=== PATIENT | female | born 1980 | race Hispanic/Latino ===

== ENCOUNTER 2018-07-29 18:36 | Emergency (ER) | payer OTHER, SELFPAY ==
--- NOTE | 2018-07-29 19:26 | EDPHYS ---
Physician Documentation [facility] Name: Red Slater Age: 38 yrs Sex: Female : 1980 Arrival Date: 07/29/2018 Time: 18:38 Bed 15 Private MD: None, None ED Physician Nick Izquierdo HPI: 07/29 19:23 This 38 yrs old Female presents to ER via Ambulatory with complaints of Rash - kb PAINFUL. 19:23 The patient's rash thought to be caused by autoimmune disorder. The rash is located on kb the neck and chest. The rash can be described as pustular. Onset: The symptoms/episode began/occurred 1 month(s) ago. Associated signs and symptoms: Pertinent positives: Pain Pertinent negatives: burning sensation, difficulty breathing, fever, itching, nausea, swelling of lips, swelling of throat, swelling of tongue, vomiting, wheezing. Severity of symptoms: At their worst the symptoms were moderate in the emergency department the symptoms are unchanged. The patient has experienced similar episodes in the past, chronically. The patient has not recently seen a physician. Pt states she has been out of dapsone since she got out of senior living. 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 States prednisone doesn't work, she has to have dapsone. Reports she is going to see a doctor in [place] for this that she has seen in the past, but is waiting on medicaid. 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 - Social history:: Smoking status: Patient uses tobacco products, smokes one-half pack cigarettes per day, smokes one pack cigarettes per day. - Ebola Screening: : Patient negative for fever greater than or equal to 101.5 degrees Fahrenheit, and additional compatible Ebola Virus Disease symptoms Patient denies exposure to infectious person Patient denies travel to an Ebola-affected area in the 21 days before illness onset No symptoms or risks identified at this time. ROS: 19:22 Constitutional: Negative for fever, chills, and weight loss, Cardiovascular: Negative kb for chest pain, palpitations, and edema, Respiratory: Negative for shortness of breath, cough, wheezing, and pleuritic chest pain, Abdomen/GI: Negative for abdominal pain, nausea, vomiting, diarrhea, and constipation, Back: Negative for injury and pain, : Negative for injury, bleeding, discharge, and swelling, MS/Extremity: Negative for injury and deformity, Neuro: Negative for headache, weakness, numbness, tingling, and seizure. 19:22 Skin: Positive for rash, of the neck and chest. Exam: 19:22 Constitutional: This is a well developed, well nourished patient who is awake, alert, kb and in no acute distress. Head/Face: Normocephalic, atraumatic. Chest/axilla: Normal chest wall appearance and motion. Nontender with no deformity. No lesions are appreciated. Cardiovascular: Regular rate and rhythm with a normal S1 and S2. No gallops, murmurs, or rubs. Normal PMI, no JVD. No pulse deficits. Respiratory: Lungs have equal breath sounds bilaterally, clear to auscultation and percussion. No rales, rhonchi or wheezes noted. No increased work of breathing, no retractions or nasal flaring. Abdomen/GI: Soft, non-tender, with normal bowel sounds. No distension or tympany. No guarding or rebound. No evidence of tenderness throughout. MS/ Extremity: Pulses equal, no cyanosis. Neurovascular intact. Full, normal range of motion. Neuro: Awake and alert, GCS 15, oriented to person, place, time, and situation. Cranial nerves II-XII grossly intact. Motor strength 5/5 in all extremities. Sensory grossly intact. Cerebellar exam normal. Normal gait. 19:22 Skin: rash a moderate rash is noted, rash can be described as erythematous, pustular, on the neck and chest. Vital Signs: 19:08 BP 150 / 71; Pulse 84; Resp 20; Temp 97.4; Pulse Ox 97% on R/A; Weight 131.54 kg; aj Height 5 ft. 7 in. (170.18 cm); 19:08 Body Mass Index 45.42 (131.54 kg, 170.18 cm) aj MDM: 19:21 Patient medically screened. [facility] 19:23 Data reviewed: vital signs, nurses notes. Data interpreted: Pulse oximetry: on room air kb is 97 %. Interpretation: normal. Counseling: I had a detailed discussion with the patient and/or guardian regarding: the historical points, exam findings, and any diagnostic results supporting the discharge/admit diagnosis, the need for outpatient follow up, a family practitioner, to return to the emergency department if symptoms worsen or persist or if there are any questions or concerns that arise at home. Administered Medications: 19:27 Drug: Benadryl 25 mg Route: PO; lp1 19:27 Follow up: Response: Medication administered at discharge. lp1 19:27 Drug: Decadron 10 mg Route: IM; Site: right gluteus; lp1 19:27 Follow up: Response: Medication administered at discharge. lp1 Disposition: 07/30 06:56 Co-signature as Attending Physician, Nick Izquierdo MD I agree with the assessment and [facility] plan of care. Disposition: 07/29/18 19:26 Discharged to Home. Impression: Rash and other nonspecific skin eruption. - Condition is Stable. - Discharge Instructions: Rash, [id number]. - Prescriptions for dapsone 25 mg Oral tablet - take 2 tablet by ORAL route once daily; 60 tablet. - Medication Reconciliation Form, Thank You Letter, Antibiotic Education, Prescription Opioid Use form. - Follow up: Emergency Department; When: As needed; Reason: Worsening of condition. Follow up: Private Physician; When: 2 - 3 days; Reason: Recheck today's complaints, Continuance of care, Re-evaluation by your physician. Signatures: Belle Leahy, CHELSEA-C ZUMBA INSTRUCTOR-Jailyn Mcgee RN RN aj Anderson, Corey, MD MD cha Pena, Laura RN RN lp1 Corrections: (The following items were deleted from the chart) 07/29 19:40 19:26 07/29/2018 19:26 Discharged to Home. Impression: Rash and other nonspecific skin lp1 eruption. Condition is Stable. Discharge Instructions: Rash, [id number]. Prescriptions for dapsone 25 mg Oral tablet - take 2 tablet by ORAL route once daily; 60 tablet. and Forms are Medication Reconciliation Form, Thank You Letter, Antibiotic Education, Prescription Opioid Use. Follow up: Emergency Department; When: As needed; Reason: Worsening of condition. Follow up: Private Physician; When: 2 - 3 days; Reason: Recheck today's complaints, Continuance of care, Re-evaluation by your physician. kb
--- NOTE | 2018-07-29 19:26 | ER ---
Nurse's Notes [facility] Name: Red Slater Age: 38 yrs Sex: Female : 1980 Arrival Date: 07/29/2018 Time: 18:38 Bed 15 Private MD: None, None Diagnosis: Rash and other nonspecific skin eruption Presentation: 07/29 19:07 Presenting complaint: Patient states: Rash to neck and trunk from chronic autoimmune aj disorder. Transition of care: patient was not received from another setting of care. Onset of symptoms was July 29, 2018. Risk Assessment: Do you want to hurt yourself or someone else? Patient reports no desire to harm self or others. Initial Sepsis Screen: Does the patient meet any 2 criteria? No. Patient's initial sepsis screen is negative. Does the patient have a suspected source of infection? No. Patient's initial sepsis screen is negative. Care prior to arrival: None. 19:07 Method Of Arrival: Ambulatory aj 19:07 Acuity: PETE 4 aj Triage Assessment: 19:08 General: Appears in no apparent distress. comfortable, Behavior is calm, cooperative, aj appropriate for age. Pain: Denies pain. Neuro: Level of Consciousness is awake, alert, obeys commands, Oriented to person, place, time, situation, Appropriate for age. Respiratory: Airway is patent Respiratory effort is even, unlabored, Respiratory pattern is regular, symmetrical. Derm: Rash noted that is itchy, red, on chest and abdomen. 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 - Social history:: Smoking status: Patient uses tobacco products, smokes one-half pack cigarettes per day, smokes one pack cigarettes per day. - Ebola Screening: : Patient negative for fever greater than or equal to 101.5 degrees Fahrenheit, and additional compatible Ebola Virus Disease symptoms Patient denies exposure to infectious person Patient denies travel to an Ebola-affected area in the 21 days before illness onset No symptoms or risks identified at this time. Screenin:17 Abuse screen: Denies threats or abuse. Denies injuries from another. Nutritional lp1 screening: No deficits noted. Tuberculosis screening: No symptoms or risk factors identified. Fall Risk None identified. Assessment: 19:15 General: Appears in no apparent distress. Behavior is appropriate for age. Pain: lp1 Complains of pain in right clavicle, left clavicle and neck Pain currently is 9 out of 10 on a pain scale. Quality of pain is described as burning. Neuro: No deficits noted. Cardiovascular: No deficits noted. Respiratory: No deficits noted. GI: No deficits noted. : No deficits noted. EENT: No deficits noted. Derm: Rash noted that is itchy, red, urticaria, on right clavicle, left clavicle and neck. Musculoskeletal: No deficits noted. Vital Signs: 19:08 BP 150 / 71; Pulse 84; Resp 20; Temp 97.4; Pulse Ox 97% on R/A; Weight 131.54 kg; aj Height 5 ft. 7 in. (170.18 cm); 19:08 Body Mass Index 45.42 (131.54 kg, 170.18 cm) aj ED Course: 18:38 Patient arrived in ED. sb2 18:38 None, None is Private Physician. sb2 18:57 [facility]C [facility]. kb 18:57 Nick Izquierdo MD is Attending Physician. kb 19:08 Triage completed. aj 19:08 Arm band placed on right wrist. Patient placed in an exam room. aj 19:15 Jacqueline Torres, RN is Primary Nurse. lp1 19:28 Patient has correct armband on for positive identification. lp1 19:28 No provider procedures requiring assistance completed. Patient did not have IV access lp1 during this emergency room visit. Administered Medications: 19:27 Drug: Benadryl 25 mg Route: PO; lp1 19:27 Follow up: Response: Medication administered at discharge. lp1 19:27 Drug: Decadron 10 mg Route: IM; Site: right gluteus; lp1 19:27 Follow up: Response: Medication administered at discharge. lp1 Outcome: 19:26 Discharge ordered by . kb 19:40 Discharged to home ambulatory. lp1 19:40 Condition: good 19:40 Discharge instructions given to patient, Instructed on discharge instructions, follow up and referral plans. medication usage, Demonstrated understanding of instructions, follow-up care, medications, Prescriptions given X 1. 19:40 Patient left the ED. lp1 Signatures: Belle Leahy, PRAKASH TRAN-Jailyn Mcgee RN RN Jacqueline Roblero RN RN lp1 Yumi Loving sb2
[2018-07-29] MEDS ORDERED: DEXAMETHASONE 10 MG/ML VIAL ONE (19:29)
[2018-07-29] MEDS ORDERED: DIPHENHYDRAMINE 25 MG TAB/CAP ONE (19:29)
== END 2018-07-29 19:40 | disposition home or self-care (01) ==
LOC: ER 18:36
DX: R21 Rash and other nonspecific skin eruption (principal)
CPT/HCPCS: 96372; 99283; J1100

== ENCOUNTER 2019-05-24 15:04 | Emergency (ER) | payer SELFPAY ==
[2019-05-24] MEDS ORDERED: CODEINE 30MG/APAP 300MG TAB ONE (16:00)
--- NOTE | 2019-05-24 16:18 | EDPHYS ---
Physician Documentation [facility] Name: Red Slater Age: 39 yrs Sex: Female : 1980 Arrival Date: 05/24/2019 Time: 15:06 Bed 20 Private MD: ED Physician Nick Izquierdo HPI: 05/24 15:30 This 39 yrs old Female presents to ER via Ambulatory with complaints of Ear cp Pain. 15:30 The patient presents with drainage, that is purulent, pain, that is acute, swelling, cp tenderness. The complaints affect the left ear. Onset: The symptoms/episode began/occurred gradually, and became worse 3 day(s) ago. Associated signs and symptoms: Pertinent negatives: cough, fever, rhinorrhea, sinus trouble, sore throat, vomiting. Severity of symptoms: in the emergency department the symptoms are unchanged despite home interventions. 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 - Social history:: Smoking status: . - Ebola Screening: : Patient denies travel to an Ebola-affected area in the 21 days before illness onset. ROS: 15:35 Constitutional: Negative for body aches, chills, fever, poor PO intake. cp 15:35 Eyes: Negative for injury, pain, redness, and discharge. cp 15:35 ENT: Positive for drainage from ear(s), ear pain, Negative for sinus congestion, sore throat, difficulty swallowing, difficulty handling secretions. 15:35 Respiratory: Negative for cough, wheezing. 15:35 Skin: Negative for rash. 15:35 Neuro: Negative for altered mental status, headache. 15:35 All other systems are negative. Exam: 15:40 Head/Face: Normocephalic, atraumatic. cp 15:40 Constitutional: The patient appears in no acute distress, alert, awake, non-toxic, well developed, well nourished, obese. 15:40 Eyes: Periorbital structures: appear normal, Conjunctiva: normal, no exudate, no injection, Lids and lashes: appear normal, bilaterally. 15:40 ENT: External ear(s): pain with movement, that is moderate, of the pinna of left ear and left ear canal, Ear canal(s): purulent discharge, in the left canal, swelling, that is moderate, of the left canal, TM's: erythema, that is moderate, on the right, Nose: is normal, Mouth: is normal, Posterior pharynx: is normal, airway is patent, no erythema, no exudate. 15:40 Neck: ROM/movement: is normal, is supple, without pain, no range of motions limitations, no meningismus, Lymph nodes: no appreciated lymphadenopathy. 15:40 Chest/axilla: Inspection: normal. 15:40 Cardiovascular: Rate: tachycardic. 15:40 Respiratory: the patient does not display signs of respiratory distress, Respirations: normal, no use of accessory muscles, no retractions, no splinting, no tachypnea, labored breathing, is not present. 15:40 Skin: no rash present. Vital Signs: 15:15 BP 150 / 104; Pulse 100; Resp 17; Temp 98.7(TE); Pulse Ox 95% on R/A; Weight 129.27 kg tw2 (R); Height 5 ft. 7 in. (170.18 cm) (R); Pain 10/10; 16:33 BP 135 / 97; Pulse 92; Resp 100 S; Pulse Ox 100% on R/A; Pain 7/10; ca1 15:15 Body Mass Index 44.64 (129.27 kg, 170.18 cm) tw2 MDM: 15:23 Patient medically screened. cp 15:30 Differential diagnosis: otitis media, otitis externa, ruptured TM, cerumen impaction, cp barotrauma . 16:16 Data reviewed: vital signs, nurses notes, I have discussed the patient's cp presentation/case with the attending Emergency Department Physician; and as a result, I will discharge patient. 16:16 Counseling: I had a detailed discussion with the patient and/or guardian regarding: the cp historical points, exam findings, and any diagnostic results supporting the discharge/admit diagnosis, the need for outpatient follow up, an ENT specialist, to return to the emergency department if symptoms worsen or persist or if there are any questions or concerns that arise at home. Response to treatment: the patient's symptoms have mildly improved after treatment. 05/24 15:28 Order name: Urine Dipstick-Ancillary (obtain specimen); Complete Time: 15:56 cp 05/24 15:28 Order name: Urine Test (obtain specimen); Complete Time: 15:41 cp Administered Medications: 15:28 CANCELLED (Physician Discretion): Tylenol-Codeine #3 (300 mg - 30 mg) 2 tabs PO once; cp RASS on ADMIN: Combtv4, Very Agttd3, Agttd2, Rstlss1, AlertClm0, Drwsy-1, Lt Sdtn-2, Mod Sdtn-3, Dp Sdtn-4, UnArsble-5 16:21 Drug: Tylenol #3 (300 mg-30 mg) 2 tabs Route: PO; ca1 16:56 Follow up: Response: No adverse reaction; Pain is decreased ca1 Disposition: 05/25 07:21 Co-signature as Attending Physician, Nick Izquierdo MD I agree with the assessment and [facility] plan of care. Disposition: 05/24/19 16:17 Discharged to Home. Impression: Otitis externa in other diseases classified elsewhere, left ear, Otitis media, unspecified, right ear. - Condition is Stable. - Discharge Instructions: Otitis Media, Adult, Otitis Externa. - Prescriptions for Ciprodex 0.3- 0.1 % Otic Drops, Suspension - instill 4 drop by OTIC route every 12 hours for 7 days , for ears ONLY; 1 Container. ciprofloxacin HCl 750 mg Oral tablet - take 1 tablet by ORAL route every 12 hours for 10 days; 20 tablet. Tylenol- Codeine #3 300-30 mg Oral Tablet - take 2 tablets by ORAL route every 8 hours As needed; 15 tablet. - Medication Reconciliation Form, Thank You Letter, Antibiotic Education, Prescription Opioid Use form. - Follow up: Samantha Zayas MD; When: 2 - 3 days; Reason: Recheck today's complaints. - Problem is new. - Symptoms have improved. Signatures: Nick Izquierdo MD MD cha Page, Corey, PA PA cp Wise, Tara, RN RN tw2 Xiomy Alcantar RN RN ca1 Corrections: (The following items were deleted from the chart) 05/24 15:28 15:28 Tylenol-Codeine #3 (300 mg - 30 mg) 2 tabs PO once; RASS on ADMIN: Combtv4, Very cp Agttd3, Agttd2, Rstlss1, AlertClm0, Drwsy-1, Lt Sdtn-2, Mod Sdtn-3, Dp Sdtn-4, UnArsble-5 ordered. cp 16:57 16:17 05/24/2019 16:17 Discharged to Home. Impression: Otitis externa in other diseases ca1 classified elsewhere, left ear; Otitis media, unspecified, right ear. Condition is Stable. Discharge Instructions: Otitis Media, Adult, Otitis Externa. Prescriptions for Ciprodex 0.3-0.1 % Otic Drops, Suspension - instill 4 drop by OTIC route every 12 hours for 7 days , for ears ONLY; 1 Container, Augmentin 875-125 mg Oral Tablet - take 1 tablet by ORAL route every 12 hours for 10 days; 20 tablet. and Forms are Medication Reconciliation Form, Thank You Letter, Antibiotic Education, Prescription Opioid Use. Follow up: Samantha Zayas; When: 2 - 3 days; Reason: Recheck today's complaints. Problem is new. Symptoms have improved. cp
--- NOTE | 2019-05-24 16:18 | ER ---
Nurse's Notes [facility] Name: Red Slater Age: 39 yrs Sex: Female : 1980 Arrival Date: 05/24/2019 Time: 15:06 Bed 20 Private MD: Diagnosis: Otitis externa in other diseases classified elsewhere, left ear;Otitis media, unspecified, right ear Presentation: 05/24 15:13 Presenting complaint: Patient states: i have a really bad ear ache on the LEFT ear and tw2 my face feels swollen, the pain started 3 days ago, and the swelling started yesterday. Transition of care: patient was not received from another setting of care. Onset of symptoms was May 24, 2019. Risk Assessment: Do you want to hurt yourself or someone else? Patient reports no desire to harm self or others. Initial Sepsis Screen: Does the patient meet any 2 criteria? No. Patient's initial sepsis screen is negative. Does the patient have a suspected source of infection? No. Patient's initial sepsis screen is negative. Care prior to arrival: None. 15:13 Method Of Arrival: Ambulatory tw2 15:13 Acuity: PETE 3 tw2 Triage Assessment: 15:15 General: Appears in no apparent distress. obese, Behavior is calm, cooperative, tw2 appropriate for age. Pain: Complains of pain in left ear. EENT: Reports pain in left ear. 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 - Social history:: Smoking status: . - Ebola Screening: : Patient denies travel to an Ebola-affected area in the 21 days before illness onset. Screenin:25 Abuse screen: Denies threats or abuse. Denies injuries from another. Nutritional ca1 screening: No deficits noted. Tuberculosis screening: No symptoms or risk factors identified. Fall Risk None identified. Assessment: 15:25 General: Appears in no apparent distress. comfortable, Behavior is calm, cooperative, ca1 appropriate for age. Pain: Complains of pain in left ear Pain currently is 10 out of 10 on a pain scale. Quality of pain is described as throbbing, Pain began 1 day ago. Neuro: Level of Consciousness is awake, alert, obeys commands, Oriented to person, place, time, situation, Appropriate for age. EENT: Tympanic membrane not visualized right ear Ear canal w/ drainage noted from left ear Reports decreased hearing in left ear pain in left ear Pain is 10 out of 10 on a pain scale. Derm: Skin is intact, is healthy with good turgor, Skin is pink, warm \T\ dry. Musculoskeletal: Circulation, motion, and sensation intact. Capillary refill < 3 seconds. 16:33 Reassessment: Patient appears in no apparent distress at this time. Patient and/or ca1 family updated on plan of care and expected duration. Pain level reassessed. Patient is alert, oriented x 3, equal unlabored respirations, skin warm/dry/pink. Vital Signs: 15:15 BP 150 / 104; Pulse 100; Resp 17; Temp 98.7(TE); Pulse Ox 95% on R/A; Weight 129.27 kg tw2 (R); Height 5 ft. 7 in. (170.18 cm) (R); Pain 10/10; 16:33 BP 135 / 97; Pulse 92; Resp 100 S; Pulse Ox 100% on R/A; Pain 7/10; ca1 15:15 Body Mass Index 44.64 (129.27 kg, 170.18 cm) tw2 ED Course: 15:06 Patient arrived in ED. mr 15:15 Triage completed. tw2 15:16 Arm band placed on. tw2 15:20 Xiomy Alcantar, NELY is Primary Nurse. ca1 15:22 Nick Gunn PA is PHCP. cp 15:22 Nick Izquierdo MD is Attending Physician. cp 15:25 Patient has correct armband on for positive identification. Bed in low position. Call ca1 light in reach. Side rails up X 1. Pulse ox on. NIBP on. 15:25 No provider procedures requiring assistance completed. Patient did not have IV access ca1 during this emergency room visit. 16:17 Samantha Zayas MD is Referral Physician. cp Administered Medications: 15:28 CANCELLED (Physician Discretion): Tylenol-Codeine #3 (300 mg - 30 mg) 2 tabs PO once; cp RASS on ADMIN: Combtv4, Very Agttd3, Agttd2, Rstlss1, AlertClm0, Drwsy-1, Lt Sdtn-2, Mod Sdtn-3, Dp Sdtn-4, UnArsble-5 16:21 Drug: Tylenol #3 (300 mg-30 mg) 2 tabs Route: PO; ca1 16:56 Follow up: Response: No adverse reaction; Pain is decreased ca1 Outcome: 16:17 Discharge ordered by MD. cp 16:57 Discharged to home with friend. ca1 16:57 Condition: stable 16:57 Discharge instructions given to patient, Instructed on discharge instructions, follow up and referral plans. no drinking with medication, no driving heavy equipment, medication usage, Demonstrated understanding of instructions, follow-up care, medications, Prescriptions given X 3. 16:57 Patient left the ED. ca1 Signatures: Arina Valdez mr GunnNick PA PA cp Wise, Tara RN RN tw2 Xiomy Alcantar RN RN ca1
[2019-05-24 17:51] VITALS: TEMP 98.7
[2019-05-24 17:52] VITALS: BP 135/97; O2SAT 100
== END 2019-05-24 16:57 | disposition home or self-care (01) ==
LOC: ER 15:04
DX: H60.8X2 Other otitis externa, left ear (principal); H66.91 Otitis media, unspecified, right ear
CPT/HCPCS: 99283

== ENCOUNTER 2020-07-19 | Emergency (ER) | payer OTHER ==
--- OUTSIDE RECORDS SUMMARY | 2020-07-19 12:20 | XMS REPORT | Continuity of Care Document ---
:1980 Author Organization [facility] t Address [address] [place] [address] Care Team Providers Name Role Phone Lawrence Ch MD Attending Clinician Problems This patient has no known problems. Allergies, Adverse Reactions, Alerts This patient has no known allergies or adverse reactions. Medications This patient has no known medications. Procedures This patient has no known procedures. Encounters Start End Encounter Admission Attending Care Care Encounter Source Date/Time Date/Time Type Type Clinicians Facility Department ID 2020-07-18 2020-07-18 Refill [facility] [id number] 00:00:00 00:00:00 [facility] [id number] [facility] [id number] 2020-07-05 2020-07-05 Office [facility] [id number] 09:26:49 11:10:38 Visit [facility] [id number] [facility] [id number] Results This patient has no known results.
--- OUTSIDE RECORDS SUMMARY | 2020-07-19 12:21 | XMS REPORT | Summary of Care ---
:1980 Author Organization [facility] - [facility] Address [address] [place] [address] Care Team Providers Name Role Phone Pcp, Patient Does Not Have A Primary Care Provider +[phone] 0-0000 Encounter Details Date Type Department Care Team Description 06/06/2020 Orders Only [facility] Doctor Unassigned, No [address] [facility] [address] [address] [place] [address] Allergies No Known Allergiesdocumented as of this encounter (statuses as of 06/06/2020) Medications Medication Sig Dispensed Refills Start Date End Date Status traMADOL (ULTRAM) 50 mg Take 1 Tab by 60 Tab 0 10/20/2014 Active tablet mouth every 6 (six) hours as needed for Pain (scale 4-6) or Pain (scale 7-10). predniSONE (DELTASONE) Take 1 Tab by 30 Tab 1 12/02/2014 Active 20 mg mouth daily. tabletIndications: Sneddon-Gonzalez disease predniSONE (DELTASONE) Take 1 Tab by 100 Tab 0 12/27/2014 Active 5 mg tabletIndications: mouth daily. Sneddon-Gonzalez disease nystatin (MYCOSTATIN) Apply to area(s) 90 g 1 02/08/2015 Active 100,000 unit/gram 2 (two) times ointmentIndications: daily. Sneddon-Gonzalez disease triamcinolone acetonide Apply to area(s) 454 g 3 03/29/20 15 Active (KENALOG) 0.1 % 2 (two) times ointmentIndications: daily. Sneddon-Gonzalez disease doxycycline (MONODOX) Take 1 Cap by 60 Cap 2 03/31/2015 Active 100 mg capsule mouth 2 (two) times daily. dapsone 25 mg Take 2 tablets by 60 tablet 0 12/22/2018 Active tabletIndications: mouth daily. 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 documented as of this encounter (statuses as of 06/06/2020) Immunizations Name Administration Dates Next Due TDAP 09/29/2012 Td 07/28/1994 documented as of this encounter Social History Tobacco Use Types Packs/Day Years Used Date Former Smoker Smokeless Tobacco: Former User Q uit: 12/27/2011 Alcohol Use Drinks/Week oz/Week Comments No Sex Assigned at Date Recorded Not on file documented as of this encounter Last Filed Vital Signs Not on filedocumented in this encounter Plan of Treatment Health Maintenance Due Date Last Done Comments PNEUMOCOCCAL 0-64 YEARS COMBINED SERIES (1 01/14/1986 of 3 - PCV13) Depression Screening 1992 PAP SMEAR 09/30/2015 09/29/2012 Breast Cancer Screening (MAMMOGRAM) 2020 INFLUENZA VACCINE (#1) 2020 DTaP,Tdap,and Td Vaccines (3 - Td) 09/29/2022 09/29/2012, 0 07/28/1994 documented as of this encounter Procedures Procedure Name Priority Date/Time Associated Diagnosis Comme nts CONSENT/REFUSAL FOR Routine 06/06/2020 7:54 PM 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
--- OUTSIDE RECORDS SUMMARY | 2020-07-19 12:21 | XMS REPORT | Summary of Care ---
:1980 Author Organization [facility] Address [address] [place] [address] Care Team Providers Name Role Phone Pcp, Patient Does Not Have A Primary Care Provider +[id number] 0-0000 Reason for Visit Reason Comments LAB WORK Encounter Details Date Type Department Care Team Description 07/05/2020 Bill Cutter Visit [facility] Clinical Say Wells MD [address] [place] [address] [facility] - [facility], [facility]-Lab disease [address] [phone] Allergies No Known Allergiesdocumented as of this encounter (statuses as of 07/05/2020) Medications Medication Sig Dispensed Refills Start Date [...] 12/22/2018 Active tabletIndications: mouth daily. Autoimmune disorder dapsone 25 mg Take 1 tablet by 10 tablet 0 06/06/2020 Active tabletIndications: mouth daily. 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 documented as of this encounter Last Filed Vital Signs Not on filedocumented in this encounter Nursing Notes Princess Larisa Morris - 07/05/2020 11:30 AM CST Venipuncture collection performed by clean technique on the right anticubitus. Total of 1 attempts were made. Slight pressure and a bandage/dressing were applied to the site(s). The patient experiencedno complications. The following specimens were processed according to instructions and sent to [facility] laboratories per lab order on : LT BLUE SST 1 RED LAV 3 PPT DK GREEN (LiHep) DK GREEN (SodH) NGO DK BLUE (K2) DK BLUE (S) ACD Blood Culture NIPT/NTD Drawn by Tj Alcalaectronically signed by Princess Larisa Morris at 07/05/2020 11:27 AM CSTdocumented in this encounter Plan of Treatment Date Type Specialty Care Team Description 07/17/2020 Nurse Visit Dermatology Visit, [facility] Dermatology Nurse Name Type Priority Associated Diagnoses Date/Ti me CBC WITH DIFF [facility]:22 AM disease COLLATERAL ANALYST COMP. METABOLIC PANEL LAB [facility]ine [facility] 09/05/2019 11:22 AM ([id number]) disease COLLATERAL ANALYST THIOPURINE LAB Routine Notable Limited-Gonzalez 07/05/2020 11:22 AM METHYLTRANSFERASE, RBC disease COLLATERAL ANALYST HEPATITIS B CORE ANTIBODY LAB Routine [facility]ail[facility] on 07/05/2020 11:22 AM IGM disease COLLATERAL ANALYST HCV ANTIBODY LAB Routine Notable LimitedGonzalez 07/05/2020 11:22 AM disease COLLATERAL ANALYST HIV 1/2 AG-AB WITH REFLEX LAB Routine [facility] on 07/05/2020 11:22 AM disease COLLATERAL ANALYST GLYCOSYLATED HEMOGLOBIN LAB Routine Notable LimitedGonzalez 07/05/2020 11:22 AM (A1C) disease COLLATERAL ANALYST Health Maintenance Due Date Last Done Comments PNEUMOCOCCAL 0-64 YEARS COMBINED SERIES (1 01/14/1986 of 3 - PCV13) Depression Screening 1992 PAP SMEAR 09/30/2015 09/29/2012 Breast Cancer Screening (MAMMOGRAM) 2020 INFLUENZA VACCINE (#1) 2020 DTaP,Tdap,and Td Vaccines (3 - Td) 09/29/2022 09/29/2012, 0 07/28/1994 documented as of this encounter Results Not on filedocumented in this encounter 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
--- OUTSIDE RECORDS SUMMARY | 2020-07-19 12:21 | XMS REPORT | Summary of Care ---
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 documented as of this encounter Last Filed Vital Signs Not on filedocumented in this encounter Plan of Treatment Date Type Specialty Care Team Description 07/05/2020 Office Visit Dermatology Gwendolyn Kaye MD [address] [place] [phone] Sanket Wells MD [address] [place] [phone] Health Maintenance Due Date Last Done Comments PNEUMOCOCCAL 0-64 YEARS COMBINED SERIES (1 01/14/1986 of 3 - PCV13) Depression Screening 1992 PAP SMEAR 09/30/2015 09/29/2012 Breast Cancer Screening (MAMMOGRAM) 2020 INFLUENZA VACCINE (#1) 2020 DTaP,Tdap,and Td Vaccines (3 - Td) 09/29/2022 09/29/2012, 0 07/28/1994 documented as of this encounter Procedures Procedure Name Priority Date/Time Associated Diagnosis Comme nts ASSIGNMENT OF BENEFITS Routine 07/05/2020 9:26 AM LABOR RELATIONS REPRESENTATIVE documented in this encounter Results Not on filedocumented in this encounter Insurance Payer Benefit Plan Subscriber ID Effective Phone Address Typ e / Group Dates [facility] MEDICAID OF [id number] 2019-Pres [phone] Med icaid [place] ent [id number] [place] [address] [facility] [id number] 2014-Blossom Medic aid HEALTH[employer] COMM STAR nt PLAN - MANAGED MEDICAID documented as of this encounter
--- OUTSIDE RECORDS SUMMARY | 2020-07-19 12:21 | XMS REPORT | Summary of Care ---
:1980 Author Organization [facility] Address [address] [place] [id number] Care Team Providers Name Role Phone Pcp, Patient Does Not Have A Primary Care Provider +[id number] 0-0000 Reason for Visit Reason Comments New Evaluation Skin Check Rash (Routine) Status Reason Specialty Diagnoses / Referred By Referred To Procedures Contact Contact New Request [facility] / Diagnoses Dermatitis Maynor Pena, Dermatology Procedures Discharge Follow-Up: Specialty Service [facility]; 3-5 Days CONSULT/REFERRAL DERMATOLOGY [address] [place] [address] [address] [place] [address] Encounter Details Date Type Department Care Team Description 07/05/2020 Office Visit [facility] Gwendolyn Kaye MD [address] [place] [address] [phone] Sneddon-Wallace disease (Primary Dx); Dermatology- Sanket Wells MD [address] [place] [phone] Angiolipoma; [place] Abscess; [facility] Benign neoplasm of scalp and skin of neck [address] [facility] [place] [phone] Allergies No Known Allergiesdocumented as of this [...] 12/02/2014 Active 20 mg mouth daily. tabletIndications: Sneddon-Wallace disease predniSONE (DELTASONE) Take 1 Tab by 100 Tab 0 12/27/2014 Active 5 mg tabletIndications: mouth daily. Sneddon-Wallace disease nystatin (MYCOSTATIN) Apply to area(s) 90 g 1 02/08/2015 Active 100,000 unit/gram 2 (two) times ointmentIndications: daily. Sneddon-Wallace disease triamcinolone acetonide Apply to area(s) 454 g 3 03/29/20 15 Active (KENALOG) 0.1 % 2 (two) times ointmentIndications: daily. Sneddon-Wallace disease doxycycline (MONODOX) Take 1 Cap by [...] and vulvovaginitis 09/29/2012 Overview: ICD10 Diagnosis Term Conduit Cleaner Utility Need for prophylactic vaccination with combined 2012 dxauquwfjy-bivvmsv-idyydtcxr (DTP) vaccine Morbid obesity 09/29/2012 AN (acanthosis nigricans) 09/29/2012 Headache 09/29/2012 Overview: ICD10 Diagnosis Term Conduit Cleaner Utility documented as of this encounter (statuses [...] with No / Unsure 07/05/2020 9:34 AM BOTTOM SPRAYER someone who was confirmed or suspected to have Coronavirus / COVID-19? 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 She was last seen on 2014 and after her last visit she was incarcerated until 2 weeks ago. Since last visit she reports multiple relapses despite dapsone (25 mg daily). She denies any admissions to the hospital during that time. Today she is comming with 3 weeks history of erythematous patches involving lower face, heck, chest, abdomen, back and extremities. She received Dexamethasone IM (dose not precised) 3 weeks ago while still incarcerated. The rash is associated with pustules, burning sensation and pain. Denies using any topical treatments. 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 NEGATIVE FOR IgA. Previous history of management (taken from the previous note) 10/20/2014 - patient was discharged on prednisone 40 mg daily & dapsone 50 mg daily 10/31/2014 - patient is self-pay with very limited funds, was not able to get the medication until day before (10/30/2014), when her friend bought it for her. Continued prednisone 40 mg daily & dapsone 50 mg daily 11/18/2014 - Only took prednisone 20 mg daily due to anxiety, taking dapsone 50 mg daily without problems. Still making new lesions. Continued prednisone 20 mg daily, increased dapsone to 100 mg daily 12/02/2014 - Taking prednisone 20 mg daily but only dapsone 50 mg daily due to perceived anxiety. Still making new lesions despite some fading of other lesions. Continue prednisone 20 mg daily and increased dapsone to 100 mg daily (OK to take 50 mg BID) 12/23/2014 - Taking prednisone 20 mg daily and dapsone 50 mg BID without problems. Much improved with very few active pustules, and resolution of most plaques with postinflammatory hyperpigmentation. 12/02/2014 bloodwork showed no anemia, mildly increased reticulocyte count to 2.08, SPEP with mild polyclonal Ig increase, and CMP with transaminitis of 82/49. She described in the past a history of alcoholic cirrhosis and there were no baseline LFTs. Repeat bloodwork without anemia or transaminitis, reticulocyte less increased to 1.98, viral hepatitis panel negative. Dapsone increased to 150 mg daily and instructed to taper prednisone by 2.5 mg weekly. 01/16/2015 - Taking presnidone 5 mg daily (tapered by 5 mg weekly instead of 2.5 mg weekly) and dapsone 50 mg TID without problems. When tapering prednisone, noticed increased activity around neck area- other areas clear. No topicals. Increased patient to dapsone 200 mg daily and instructed to continue prednisone 5 mg daily x 1 week, then start 2.5 mg daily x 1 week, then take 2.5 mg QOD x 7 doses. 01/26/2015 - Patient called and stated she was flaring and lesions were painful. Spoke to patient about coming in to clinic as soon as possible. She was unable to get a ride to come in. Instructed her to hold prednisone at 2.5 mg daily until seen. 02/08/2015 - patient taking 2.5 mg prednisone daily, dapsone 150 mg daily (sometimes only 100 mg when she forgets), did not increase to 200 mg daily (patient did not realize she was supposed to do this). Previous flare better, but still had active areas in skin folds on trunk and on legs - plaques and pustules. (+) pain in intertriginous areas, used hydrocortisone and clotrimazole as suggested but states this made area flare. Decreased prednisone to 2.5 mg PO QOD x 7 doses, then stop. Increased dapsone to 200 mg daily. 03/01/2015 - still flaring, off prednisone, on dapsone 200 mg daily, thought about increasing dapsone further but new anemia (had been trending down since start of dapsone & with increasing dosage)& increasing reticulocyte count prevented this. Added minocycline 100 mg PO BID. Histories Past Medical History: Diagnosis Date Abnormal Pap smear 2002 unknown result Blood transfusion, without reported diagnosis 1986 during surgery HTN (hypertension) Sneddon-Wallace disease (-) hx of skin cancer (-) family hx of skin cancer Allergies No Known Allergies Medications Current Outpatient Medications on File Prior to Visit Medication Sig Dispense Refill dapsone 25 mg tablet Take 1 tablet by mouth daily. 10 tablet 0 dapsone 25 mg tablet Take 2 tablets by mouth daily. 60 tablet 0 doxycycline (MONODOX) 100 mg capsule Take 1 Cap by mouth 2 (two) times daily. 60 Cap 2 triamcinolone acetonide (KENALOG) 0.1 % ointment Apply to area(s) 2 (two) times daily. 454 g 3 nystatin (MYCOSTATIN) 100,000 unit/gram ointment Apply to area(s) 2 (two) times daily. 90 g 1 predniSONE (DELTASONE) 5 mg tablet Take 1 Tab by mouth daily. 100 Tab 0 predniSONE (DELTASONE) 20 mg tablet Take 1 Tab by mouth daily. 30 Tab 1 traMADOL (ULTRAM) 50 mg tablet Take 1 Tab by mouth every 6 (six) hours as needed for Pain (scale4-6) or Pain (scale 7-10). 60 Tab 0 No current facility-administered medications on file prior to visit. Review of Systems Constitutional: Pain (+) Skin: Itching (+), Rash (+), Growth (+), Color change (+) Heme: Bleeding (-) Physical Exam There were no vitals taken for this visit. General : No acute distress, awake, well developed, well nourished Psychiatric: Normal affect, mood, judgement, and thought content Neuro: Alert, oriented to person, place, situation FACE: Positive EYES: Negative NOSE: Negative EARS: Positive SCALP: Negative NECK: Positive CHEST: Positive ABDOMEN: Positive BACK: Positive RIGHT ARM: See image LEFT ARM: Positive RIGHT LEG: Positive LEFT LEG: Positive BUTTOCKS: Positive (-)=Negative,(+)=Positive Actinic Keratosis (A): erythematous scaling papules Elizalde Hemaniogioma (CH): smooth red and purple papules Dermatitis Erythema (DE): mild to moderate erythema and scaling Dermatitis Lichenified (DL): lichenification and thickening Dermatitis Weeping (DW): weeping and excoriation Inflamed Seborrheic Keratosis (ISK): inflamed warty brown papules and plaques Millium (ML): Small white cystic papule Molluscum Contagiosum (MC): umbilicated papule Nevus Macular (NM): well circumscribed evenly pigmented macule Nevus Papular (MAILING JOGGER): well circumscribed evenly pigmented papule Psoriasis Circumscribed (PC): well circumscribed erythema and scaling Psoriasis Diffuse (PD): diffuse patches of erythema and scaling Seborrheic Keratosis (SK): verrucous brown papules and plaques Scar (SR): cicatricial change Verruca Vulgarus (W): warty hyperkeratotic papule 07/05/2020 07/05/2020 07/05/2020 07/05/2020 07/05/2020 07/05/2020 Assessment/Plan 1. Kailee Rayoinson disease - Discussed possible etiologies, prognosis and treatment options with patient -Start Doxycycline 100 mg PO BID, eRx sent. Discussed side effects of medicationication including GIupset, esophagitis, and photosensitivity. Instructed on use (take medication with food and plenty ofwater). Counseled patient about sunscreen/sun avoidance/sun protection -Recommended to start prednisone but patient differs at this moment. Patient experimented anxiety and insomnia last time she was on prednisone. - Start Nicotinamide 1.5 g po BID, OTC. Written instructions handed to the patient. -Start triamcinolone 0.1% ointment BID to affected areas, eRx sent. Discussed side effects of medication including potential for cutaneous atrophy. - Discussed differential diagnosis, prognosis and diagnostic/management options - PUNCH BIOPSY: Left abdomen: Risks of procedure discussed including bleeding, infection, and scar. Verbal consent obtained. Area prepped with alcohol. Local anesthesia provided with 1% lidocaine and epinephrine. 4 mm punch biopsy obtained. Specimen sent to pathology. Patient will be contacted with results. 4- 0 Prolene suture x 1 was placed to close the defect. Site covered with petrolatum and a bandage. Wound care instructions provided. Return for suture removal in 10 days - PUNCH BIOPSY: Right abdomen: Risks of procedure discussed including bleeding, infection, and scar. Verbal consent obtained. Area prepped with alcohol. Local anesthesia provided with 1% lidocaine and epinephrine. 4 mm punch biopsy obtained. Specimen sent to pathology. Patient will be contacted with results. 4-0 Prolene suture x 1 was placed to close the defect. Site covered with petrolatum and a bandage. Wound care instructions provided. Return for suture removal in 10 days - PUNCH BIOPSY: Right abdomen: Risks of procedure discussed including bleeding, infection, and scar. Verbal consent obtained. Area prepped with alcohol. Local anesthesia provided with 1% lidocaine and epinephrine. 4 mm punch biopsy obtained. Specimen sent to surgical pathology for DIF. Patient will be contacted with results. 4-0 Prolene suture x 1 was placed to close the defect. Site covered with petrolatum and a bandage. Wound care instructions provided. Return for suture removal in 10 days - Ordered today: cbc, cmp, TMPT, hep B and hep C, HIV and HbA1C 2. Angiolipoma, left upper arm - Discussed etiology and treatment options, including risks and benefits. - Benign appearing - Instructed to monitor for any change & notify MD if any changes noted 3. Abscess, right upper arm and left medial upper thigh - Discussed possible etiologies, prognosis and treatment options with patient - Start Doxycycline 100 mg BID eRx sent. Discussed side effects of medication including potential for cutaneous atrophy. Avoid face, axilla and groin. - Recommended bleach/chlorhexidone bath. - Bacterial culture ordered today. 4. Dermatofibroma, right forearm - Etiology and treatment options discussed - Reassurance provided . RTC 2 weeks Patient seen and discussed with Dr. Wells. The above assessment and plan is final only at the timeof their co-signature. Gwendolyn Ch MD PGY-2 [facility] Dermatology 07/05/2020 17:20 OM SPRAYER documented in this encounter Plan of Treatment Date Type Specialty Care Team Description 07/17/2020 Nurse Visit Dermatology Visit, [facility] Dermatology Nurse Name Type Priority Associated Diagnoses Date/Ti nc SURGICAL PATHOLOGY EXAM LAB Routine Emanuel 07/05/2020 1:44 PM BOTTOM SPRAYER disease THIOPURINE LAB Routine Emanuel 07/05/2020 11:22 AM BOTTOM SPRAYER METHYLTRANSFERASE, RBC disease HEPATITIS B CORE LAB Routine Emanuel 2019 11:22 AM BOTTOM SPRAYER ANTIBODY IGM disease HCV ANTIBODY LAB Routine Emanuel 07/05/2020 11:22 AM BOTTOM SPRAYER disease HIV 1/2 AG-AB WITH LAB Routine Sneddon-Wallace 03/2020 11:22 AM BOTTOM SPRAYER REFLEX disease ASPIRATE OR ABSCESS LAB Routine Sneddon-Wallace 03/2020 1:44 PM BOTTOM SPRAYER CULTURE(AEROBIC/ANAEROBI disease C) Name Type Priority Associated Diagnoses Order S chedule SURGICAL PATHOLOGY EXAM LAB Routine Sneddon-Wallace Expected: 07/05/2020, disease Expires: 2020 THIOPURINE LAB Routine Sneddon-Wallace Expected: 07/05/2020, METHYLTRANSFERASE, RBC disease Expir es: 07/05/2021 HEPATITIS B CORE ANTIBODY LAB Routine Sneddon-Ibarra on Expected: 07/05/2020, IGM disease Expires: 2020 HCV ANTIBODY LAB Routine Sneddon-Wallace Expected: 07/05/2020, disease Expires: 2020 HIV 1/2 AG-AB WITH REFLEX LAB Routine Sneddon-Ibarra on Expected: 07/05/2020, disease Expires: 2020 ASPIRATE OR ABSCESS LAB Routine Sneddon-Wallace Exp ected: 07/05/2020, CULTURE(AEROBIC/ANAEROBIC disease Ex ashley: 07/05/2021 ) Health Maintenance Due Date Last Done Comments PNEUMOCOCCAL 0-64 YEARS COMBINED SERIES (1 01/14/1986 of 3 - PCV13) Depression Screening 1992 PAP SMEAR 09/30/2015 09/29/2012 Breast Cancer Screening (MAMMOGRAM) 2020 INFLUENZA VACCINE (#1) 2020 DTaP,Tdap,and Td Vaccines (3 - Td) 09/29/2022 09/29/2012, 0 07/28/1994 documented as of this encounter Results GLYCOSYLATED HEMOGLOBIN (A1C) (07/05/2020 11:22 AM BOTTOM SPRAYER) Pathologist Sig nature HGB A1C 5.0 4.0 - 6.0 % [facility] Specimen Blood - ARM, RIGHT Performing Organization Address City/State/Zipcode Phone Number [facility] CLIA: [id number] [place] [address] [place] [address] COMP. METABOLIC PANEL (91484) (07/05/2020 11:22 AM BOTTOM SPRAYER) Pathologist Sig nature NA 137 135 - 145 mmol/L [facility] K 4.4 3.5 - 5.0 mmol/L [facility] CL 102 98 - 108 mmol/L [facility] CO2 TOTAL 25 23 - 31 mmol/L [facility] AGAP 10 2 - 16 [facility] BUN 13 7 - 23 mg/dL [facility] GLUCOSE 98 70 - 110 mg/dL [facility] CREATININE 0.63 0.50 - 1.04 [facility] mg/dL SERVICES TOTAL BILI 0.6 0.1 - 1.1 mg/dL [facility] CALCIUM 8.8 8.6 - 10.6 mg/dL [facility] T PROTEIN 7.9 6.3 - 8.2 g/dL [facility] ALBUMIN 3.9 3.5 - 5.0 g/dL [facility] ALK PHOS 104 34 - 122 U/L [facility] ALTv 14 5 - 35 U/L [facility] AST(SGOT) 22 13 - 40 U/L [facility] eGFR Calculation 104.7 mL/min/1.73m2 [facility] (Non-) SERVICES eGFR Calculation 126.8 mL/min/1.73m2 [facility] () SERVICES Specimen Blood - ARM, RIGHT Narrative Performed At Association of Glomerular Filtration Rate (GFR) and St aging [facility] of Kidney Disease* + + +------- ------ + | GFR (mL/min/1.73 m2) | With Kidney Damage | Wi thout Kidney Damage + + +------- ------ + | >90 | Stage one | Normal + + +------- ------ + | 60-89 | Stage two | Decreased GFR + + +------- ------ + | 30-59 | Stage three | Stage three + + +------- ------ + | 15-29 | Stage four | Stage four + + +------- ------ + | <15 (or dialysis) | Stage five | Stage five + + +------- ------ + *Each stage assumes the associated GFR level has been in effect for at least three months. Stages 1 to 5, wit h or without kidney disease, indicate chronic kidney disease. Notes: Determination of stages one and two (with eGFR >59mL/min/1.73 m2) requires estimation of kidney damag e for at least three months as defined by structural or func tional abnormalities of the kidney, manifested by either: Pathological abnormalities or Markers of kidney damage (including abnormalities in the composition of the blo od or urine or abnormalities in imaging tests) . Performing Organization Address City/State/Zipcode Phone Number [facility] CLIA: [id number] [place] [address] [place] [address] CBC WITH DIFF (07/05/2020 11:22 AM BOTTOM SPRAYER) Pathologist Sig nature WBC 11.72 (H) 4.30 - 11.10 [facility] 10*3/L SERVICES RBC 4.35 3.93 - 5.25 [facility] 10*6/L SERVICES HGB 12.2 11.6 - 15.0 [facility] g/dL SERVICES HCT 38.7 35.7 - 45.2 % [facility] MCV 89.0 80.6 - 95.5 fL [facility] MCH 28.0 25.9 - 32.8 pg [facility] MCHC 31.5 (L) 31.6 - 35.1 [facility] g/dL SERVICES RDW-SD 45.3 39.0 - 49.9 fL [facility] RDW-CV 14.0 12.0 - 15.5 % [facility] [address] (H) 166 - 358 [facility] 10*3/L SERVICES MPV 8.8 (L) 9.5 - 12.9 fL [facility] NRBC/100 WBC 0.0 0.0 - 10.0 /100 [facility] WBCs SERVICES NRBC x10^3 <0.01 10*3/L [facility] GRAN MAT (NEUT) % 65.8 % [facility] IMM GRAN % 0.40 % [facility] LYMPH % 26.1 % [facility] MONO % 5.7 % [facility] EOS % 1.7 % [facility] BASO % 0.3 % [facility] GRAN MAT x10^3(ANC) 7.71 (H) 1.88 - 7.09 [facility] 10*3/uL SERVICES IMM GRAN x10^3 0.05 0.00 - 0.06 [facility] 10*3/uL SERVICES LYMPH x10^3 3.06 1.32 - 3.29 [facility] 10*3/uL SERVICES MONO x10^3 0.67 0.33 - 0.92 [facility] 10*3/uL SERVICES EOS x10^3 0.20 0.03 - 0.39 [facility] 10*3/uL SERVICES BASO x10^3 0.03 0.01 - 0.07 [facility] 10*3/uL SERVICES Specimen Blood - ARM, RIGHT Performing Organization Address City/State/Zipcode Phone Number [facility] CLIA: [id number] [place] [address] [place] [address] Blvd documented in this encounter Visit Diagnoses Diagnosis Sneddon-Wallace disease - Primary Subcorneal pustular dermatosis Angiolipoma Lipoma of unspecified site Abscess Cellulitis and abscess of unspecified si te Benign neoplasm of scalp and skin of nec k documented in this encounter Insurance Payer Benefit Plan / Subscriber ID Effective Dates Phone Addre ss Type Group [facility] MEDICAID OF [id number] 2019-Judith [phone] Medicaid [facility] [id number] [place] [address] documented as of this encounter"
--- OUTSIDE RECORDS SUMMARY | 2020-07-19 12:21 | XMS REPORT | Summary of Care ---
:1980 Author Organization [facility] - [facility] Address [address] [place] [address] Care Team Providers Name Role Phone Pcp, Patient Does Not Have A Primary Care Provider +[id number] 0-0000 Reason for Referral (Routine) Status Reason Specialty Diagnoses / Referred By Referred To Procedures Contact Contact New Request [facility] Diagnoses Dermatitis Maynor Mccall, Procedures Discharge Follow-Up: Specialty Service [facility]; 3-[address] [place] [address] [place] [id number] Reason for Visit Reason Comments Rash HX of autoimmune disease Auth/Cert Status Reason Specialty Diagnoses / Referred By Referred To Procedures Contact Contact Emergency Medicine [facility] Em ergency Dept [address] [place] [address] Fax: Encounter Details Date Type Department Care Team Description 06/06/2020 Emergency ADC-Emergency Maynor Mccall MD Dermatitis (Primary Department [address] [place] [address] Dx) [address] [place] [address] [place], [place] [id number] Allergies No Known Allergiesdocumented as of this [...] 12/02/2014 Active 20 mg mouth daily. tabletIndications: Sneddon-Martinez disease predniSONE (DELTASONE) Take 1 Tab by 100 Tab 0 12/27/2014 Active 5 mg tabletIndications: mouth daily. Sneddon-Martinez disease nystatin (MYCOSTATIN) Apply to area(s) 90 g 1 02/08/2015 Active 100,000 unit/gram 2 (two) times ointmentIndications: daily. Sneddon-Martinez disease triamcinolone acetonide Apply to area(s) 454 g 3 03/29/20 15 Active (KENALOG) 0.1 % 2 (two) times ointmentIndications: daily. Sneddon-Martinez disease doxycycline (MONODOX) Take 1 Cap by [...] and vulvovaginitis 09/29/2012 Overview: ICD10 Diagnosis Term Mobile Disc Jockey Utility Need for prophylactic vaccination with combined 2012 kxascszqbo-kwojecs-cnszlorvq (DTP) vaccine Morbid obesity 09/29/2012 AN (acanthosis nigricans) 09/29/2012 Headache 09/29/2012 Overview: ICD10 Diagnosis Term Mobile Disc Jockey Utility documented as of this encounter (statuses [...] with No / Unsure 06/06/2020 8:01 PM AGRICULTURE INSPECTOR someone who was confirmed or suspected to have Coronavirus / COVID-19? documented as of this encounter Last Filed Vital Signs Vital Sign Reading Time Taken Comments Blood Pressure 163/91 06/06/2020 8:07 PM AGRICULTURE INSPECTOR Pulse 100 06/06/2020 8:07 PM AGRICULTURE INSPECTOR Temperature 37.7 C (99.9 F) 06/06/2020 8:07 PM AGRICULTURE INSPECTOR Respiratory Rate 20 06/06/2020 8:07 PM AGRICULTURE INSPECTOR Oxygen Saturation 99% 06/06/2020 8:07 PM AGRICULTURE INSPECTOR Inhaled Oxygen Concentration - - Weight 140.6 kg (310 lb) 06/06/2020 8:07 PM AGRICULTURE INSPECTOR Height - - Body Mass Index 48.55 05/11/2018 10:34 AM CDT documented in this encounter Discharge Instructions InstructionsNeMaynor klein MD - 06/06/2020 RETURN FOR ANY QUESTIONS OR CONCERNS Today you were seen by Maynor Mccall Jr., MD You were seen today for Chief Complaint Patient presents with Rash HX of autoimmune disease Your ER diagnosis was ICD-10-CM ICD-9-CM 1. Dermatitis L30.9 692.9 NO LIFE-THREATENING FINDINGS ON TODAY'S EXAM. YOUR PRESCRIPTIONS : Check out [employer] for medication discounts Medication List CHANGE how you take these medications * dapsone 25 mg tablet Take 2 tablets by mouth daily. What changed: Another medication with the same name was added. Make sure you understand how and whento take each. * dapsone 25 mg tablet Take 1 tablet by mouth daily. What changed: You were already taking a medication with the same name, and this prescription was added. Make sure you understand how and when to take each. * This list has 2 medication(s) that are the same as other medications prescribed for you. Read thedirections carefully, and ask your doctor or other care provider to review them with you. ASK your doctor about these medications doxycycline monohydrate 100 mg capsule Commonly known as: MONODOX Take 1 Cap by mouth 2 (two) times daily. nystatin 100,000 unit/gram ointment Commonly known as: MYCOSTATIN Apply to area(s) 2 (two) times daily. * predniSONE 20 mg tablet Commonly known as: DELTASONE Take 1 Tab by mouth daily. * predniSONE 5 mg tablet Commonly known as: DELTASONE Take 1 Tab by mouth daily. traMADoL 50 mg tablet Commonly known as: ULTRAM Take 1 Tab by mouth every 6 (six) hours as needed for Pain (scale 4-6) or Pain (scale 7-10). triamcinolone acetonide 0.1 % ointment Commonly known as: KENALOG Apply to area(s) 2 (two) times daily. * This list has 2 medication(s) that are the same as other medications prescribed for you. Read thedirections carefully, and ask your doctor or other care provider to review them with you. Where to Get Your Medications You can get these medications from any pharmacy Bring a paper prescription for each of these medications dapsone 25 mg tablet ER precautions and follow up : 1. Return to ER if your symptoms should worsen or fail to improve within 72 hours. 2. The care provided in the emergency room was for acute problems only. 3. You should follow up with your primary care provider within 72 hours. 4. Fill and take all your medications as prescribed. 5. Make sure you are staying adequately hydrated. Busque attencion immediatamente si usted tiene los sitomas sigue, vuelve peor o si hay sitomas nuevas o para cualquiera preoccupacion incluyendo dolor del pecho, falta aire, se siente debile, mas fievre, mas dolor, nausea, vomitando, sangrando que no es normal, confusion, baja or pierdas conciencia. MAY FOLLOW-UP WITH A PROVIDER OF YOUR CHOICE, SUCH : 1. A PHYSICIAN OF YOUR CHOICE 2. [facility], . LOCATIONS IN [facility] 3. [facility], [address] [place] [address]; [phone] OR, IF YOU WISH TO FOLLOW-UP WITHIN THE [facility], MAY TRY THESE OPTIONS (CLINIC APPOINTMENTS AVAILABLE ON SNSS-LC-LDFK BASIS): 1. SCHEDULE AN APPOINTMENT ONLINE AT WWW.[facility] 2. OR CALL THE [facility] ACCESS CENTER AT OR 3. OR CALL YOUR [facility] PHYSICIAN'S OFFICE DIRECTLY IF YOU ARE ALREADY AN ESTABLISHED [facility] PATIENT. [facility] RETURN TO WORK / SCHOOL EXCUSE Red Slater WAS SEEN IN THE ER AND DISCHARGED 06/06/2020 TODAY, 8:31 PM & May return to Work / School / Incarceration on X with activity as tolerated indicated below. ___The following limitations apply until pt is seen by Physician and cleared to return to normal activity. _X_ Off for two days and return to activity as tolerated at work or school ___ No Sports ___ No work ___ Do not return until fever free for 24 hours. ___ No school MAYNOR MCCALL Jr., MD [facility] [address] [place] [address] [place] [address] ### The patient may have been given Narcotic pain medications during their stay in the ED that may show up on a Drug Screen. The hospital discharge paper work will identify these medications. AttachmentsThe following attachments cannot be sent through Care Everywhere. Dermatitis, What is Atopic (Bahamian)documented in this encounter ED Notes Mary Ríos RN - 06/06/2020 8:01 PM CSTPatient arrived ambulatory to triage with c/o of a generalized rash for three weeks. 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 I'm here because I think a shot of decadron and benadryl would help clear me upuntil I see my stretch machine operator in [place]" aynor Mccall MD - 06/06/2020 7:55 PM CST EMERGENCY DEPARTMENT ENCOUNTER 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 treatment: None Chief Complaint Chief Complaint Patient presents with Rash HX of autoimmune disease HPI History provided by: Patient Rash Location: Torso Quality: blistering, burning and scaling Severity: Severe Onset quality: Gradual Timing: Constant Progression: Improving Chronicity: Recurrent Relieved by: Nothing Worsened by: Nothing Associated symptoms: no abdominal pain, no fatigue, no fever, no headaches, no nausea, no shortness of breath, not vomiting and not wheezing Past Medical History / Immunizations Past Medical History: Diagnosis Date Abnormal Pap smear 2002 unknown result Blood transfusion, without reported diagnosis 1985 during surgery HTN (hypertension) Sneddon-Martinez disease Tetanus received in last 5 years: Unknown Childhood immunizations: Up-to-date Past Surgical History Past Surgical History: Procedure Laterality Date DRAINAGE LYMPH NODE,SIMPLE 1985 Allergies No Known Allergies Social History Tobacco Use Former Smoker. Smokeless Tobacco: Former user of smokeless tobacco; Quit 12/27/2011. Alcohol Use No. Drug Use No. Comments: hx of marijuana and cocaine abuse-clean x 3 years Sexual Activity Not currently sexually active; Partners: Male; Control/Protection: Abstinence. Comments: last had sex in 2010 Review of Systems Review of Systems Constitutional: Negative. Negative for chills, fatigue, fever and unexpected weight change. HENT: Negative. Eyes: Negative. Negative for discharge and itching. Respiratory: Negative. Negative for cough, chest tightness, shortness of breath and wheezing. Cardiovascular: Negative. Negative for chest pain and palpitations. Gastrointestinal: Negative. Negative for abdominal distention, abdominal pain, nausea and vomiting. Genitourinary: Negative. Negative for dysuria, urgency, frequency and flank pain. Musculoskeletal: Negative. Skin: Positive for rash. Negative for color change, pallor and wound. See picture Neurological: Negative. Negative for dizziness, syncope, light-headedness and headaches. Psychiatric/Behavioral: Negative. Negative for agitation and behavioral problems. All other systems reviewed and are negative. Endocrine: Endocrine negative Physical Exam BP (!) 163/91 | Pulse 100 | Temp 37.7 C (99.9 F) (Oral) | Resp 20 | Wt 140.6 kg (310 lb) | SpO2 99% | BMI 48.55 kg/m Physical Exam Vitals signs reviewed. Constitutional: Appearance: She is well-developed. HENT: Head: Normocephalic and atraumatic. Nose: Nose normal. Eyes: Conjunctiva/sclera: Conjunctivae normal. Neck: Musculoskeletal: Normal range of motion and neck supple. Trachea: No tracheal deviation. Cardiovascular: Rate and Rhythm: Normal rate and regular rhythm. Heart sounds: Normal heart sounds. No murmur. No friction rub. Pulmonary: Effort: Pulmonary effort is normal. No respiratory distress. Breath sounds: Normal breath sounds. No stridor. No wheezing or rales. Abdominal: General: Bowel sounds are normal. There is no distension. Palpations: Abdomen is soft. Tenderness: There is no abdominal tenderness. There is no guarding or rebound. Musculoskeletal: Normal range of motion. Left lower leg: Left lower leg edema: Neurological: Mental Status: She is alert and oriented to person, place, and time. Cranial Nerves: No cranial nerve deficit. Sensory: No sensory deficit. Psychiatric: Behavior: Behavior normal. Thought Content: Thought content normal. Judgment: Judgment normal. Labs No results found for this or any previous visit (from the past 24 hour(s)). Imaging No results found for this visit on 06/06/20. Orders and Treatments No orders of the defined types were placed in this encounter. Orders Placed This Encounter Medications dexamethasone (DECADRON PHOSPHATE) injection 10 mg Procedures See ED Procedure Note Notes & MDM Patient was evaluated for an emergency medical condition related to Rash (HX of autoimmune disease ) . Differential diagnoses considered by presenting complaints but not limited to: Acute flare of auto immune disease Dermatitis History, physical exam findings, results of visit, differential diagnosis, medication regimens and plan of future care have been considered. Additional MDM may be found in the ED course. Differential diagnosis considered and final disposition made based on information gathered during evaluation and may not be completely ruled out or specifically listed. Vital signs were rechecked before final disposition. Diagnosis No diagnosis found. Disposition & Follow Up ED Disposition None Patient's Medications START taking these medications No medications on file CONTINUE taking these medications which have NOT CHANGED DAPSONE 25 MG TABLET Take 2 tablets by mouth daily. DOXYCYCLINE (MONODOX) 100 MG CAPSULE Take 1 Cap by mouth 2 (two) times daily. NYSTATIN (MYCOSTATIN) 100,000 UNIT/GRAM OINTMENT Apply to area(s) 2 (two) times daily. PREDNISONE (DELTASONE) 20 MG TABLET Take 1 Tab by mouth daily. PREDNISONE (DELTASONE) 5 MG TABLET Take 1 Tab by mouth daily. TRAMADOL (ULTRAM) 50 MG TABLET Take 1 Tab by mouth every 6 (six) hours as needed for Pain (scale4-6) or Pain (scale 7-10). TRIAMCINOLONE ACETONIDE (KENALOG) 0.1 % OINTMENT Apply to area(s) 2 (two) times daily. START taking Modified Medications as Prescribed No medications on file STOP taking these medications No medications on file Maynor Mccall Jr., MD Clinical Surgical Dressing Maker [facility] Emergency Department CULTURE INSPECTOR documented in this encounter Miscellaneous Notes ED Nurse Note - Stanislaw Johnson, RN - 06/06/2020 8:38 PM CSTPt given printed and verbal discharge instructions regarding dermitis, encouraged hydration, Prescriptions provided Pt verbalized understanding of instructions, pt awake alert oriented, resp reg unlabored, skin w/d, color appropriate for race, moves all ext well,pt encouraged to follow up with pcp Advised to seek medical attention for new/prolonged/worsening of symptoms, Symptoms improved No adverse reaction to meds given in ER noted upon discharge Awake, alert oriented, resp reg unlabored, skin w/d, pt leaving amb with steady gait, in no apparent distress, CULTURE INSPECTOR documented in this encounter Plan of Treatment Health [...] filedocumented in this encounter Visit Diagnoses Diagnosis Dermatitis - Primary Contact dermatitis and other eczema, due to unspecified cause documented in this encounter Administered Medications Medication Order MAR Action Action Date Dose Rate Site dexamethasone (DECADRON Given 06/06/2020 8:26 PM 10 mg Right Deltoid-IM PHOSPHATE) injection 10 mg AGRICULTURE INSPECTOR 10 mg, Intramuscular, ONCE, 1 dose, 06/06/20 at 2130, MARGARITA documented in this encounter Insurance Payer Benefit Plan / Subscriber ID Effective Dates Phone Addre ss Type Group [employer] MEDICAID OF [id number] 2019-Judith [phone] [address] Medicaid [place] t [id number] [place] [address] documented as of this encounter
--- OUTSIDE RECORDS SUMMARY | 2020-07-19 12:21 | XMS REPORT | Summary of Care ---
:1980 Author Organization [facility] Address [address] [place] [address] Care Team Providers Name Role Phone Pcp, Patient Does Not Have A Primary Care Provider +1-000-00 0-0000 Reason for Visit Reason Comments New Evaluation Skin Check Rash (Routine) Status Reason Specialty Diagnoses / Referred By Referred To Procedures Contact Contact New Request [facility] / Diagnoses Dermatitis Maynor Pena, Dermatology Procedures Discharge Follow-Up: Specialty Service [facility]; 3-5 Days CONSULT/REFERRAL DERMATOLOGY [address] [place] [address] [address] [place] [address] Encounter Details Date Type Department Care Team Description 07/05/2020 Office Visit [facility] Gwendolyn Kaye MD [address] [place] [phone] Sneddon-Wallace disease (Primary Dx); Dermatology- Sanket Wells MD [address] [place] [phone] Angiolipoma; [place] Abscess; [facility] Benign neoplasm of scalp and skin of neck [address] [facility] [place] [address] Allergies No Known Allergiesdocumented as [...] and vulvovaginitis 09/29/2012 Overview: ICD10 Diagnosis Term 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 Gwendolyn Ch MD PGY-2 [facility] Dermatology 07/05/2020 17:20 WARE LICENSING EXECUTIVE documented in this encounter Plan of Treatment Date Type Specialty Care Team Description 07/17/2020 Nurse Visit Dermatology Visit, [facility] Dermatology Nurse Name Type Priority Associated Diagnoses Date/Ti az SURGICAL PATHOLOGY EXAM LAB Routine Emanuel 07/05/2020 1:44 PM SOFTWARE LICENSING EXECUTIVE disease THIOPURINE LAB Routine Emanuel 07/05/2020 11:22 AM SOFTWARE LICENSING EXECUTIVE METHYLTRANSFERASE, RBC disease HEPATITIS B CORE LAB Routine Emanuel 2019 11:22 AM SOFTWARE LICENSING EXECUTIVE ANTIBODY IGM disease HCV ANTIBODY LAB Routine Emanuel 07/05/2020 11:22 AM SOFTWARE LICENSING EXECUTIVE disease HIV 1/2 AG-AB WITH LAB Routine Sneddon-Wallace 03/2020 11:22 AM SOFTWARE LICENSING EXECUTIVE REFLEX disease ASPIRATE OR ABSCESS LAB Routine Sneddon-Wallace 03/2020 1:44 PM SOFTWARE LICENSING EXECUTIVE CULTURE(AEROBIC/ANAEROBI disease C) Name Type Priority Associated [...] Results GLYCOSYLATED HEMOGLOBIN (A1C) (07/05/2020 11:22 AM SOFTWARE LICENSING EXECUTIVE) Pathologist Sig nature HGB A1C 5.0 4.0 - 6.0 % [facility] Specimen Blood - ARM, RIGHT Performing Organization Address City/State/Zipcode Phone Number [facility] CLIA: [id number] [place] [address] [place] [address] COMP. METABOLIC PANEL (25541) (07/05/2020 11:22 AM SOFTWARE LICENSING EXECUTIVE) Pathologist Sig nature NA 137 135 - 145 mmol/L [facility] K 4.4 3.5 - 5.0 mmol/L [facility] CL 102 98 - 108 mmol/L [facility] CO2 TOTAL 25 23 - 31 mmol/L [facility] AGAP 10 2 - 16 [facility] BUN 13 7 - 23 mg/dL [facility] GLUCOSE 98 70 - 110 mg/dL [facility] CREATININE 0.63 0.50 - 1.04 [facility] mg/dL SERVICES TOTAL BILI 0.6 0.1 - 1.1 mg/dL [facility] CALCIUM 8.8 8.6 - 10.6 mg/dL [facility] T PROTEIN 7.9 6.3 - 8.2 g/dL [facility] ALBUMIN 3.9 3.5 - 5.0 g/dL [facility] ALK PHOS 104 34 - 122 U/L [facility] ALTv 14 5 - 35 U/L [facility] AST(SGOT) 22 13 - 40 U/L [facility] eGFR Calculation 104.7 mL/min/1.73m2 [facility] (Non-) SERVICES eGFR Calculation 126.8 mL/min/1.73m2 [facility] () SERVICES Specimen Blood - ARM, RIGHT Narrative Performed At Association of Glomerular Filtration Rate (GFR) and St aging [facility] of Kidney Disease* + + [...] . Performing Organization Address City/State/Zipcode Phone Number [facility] CLIA: [id number] [place] [address] [place] [address] CBC WITH DIFF (07/05/2020 11:22 AM SOFTWARE LICENSING EXECUTIVE) Pathologist Sig nature WBC 11.72 (H) 4.30 [...] SERVICES EOS x10^3 0.20 0.03 - 0.39 [facility] 10*3/uL SERVICES BASO x10^3 0.03 0.01 - 0.07 [facility] 10*3/uL SERVICES Specimen Blood - ARM, RIGHT Performing Organization Address City/State/Zipcode Phone Number [facility] CLIA: [id number] [place] [address] [place] [address] Blvd documented in this encounter Visit Diagnoses Diagnosis 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
--- OUTSIDE RECORDS SUMMARY | 2020-07-19 12:22 | XMS REPORT | Summary of Care ---
:[address] [facility] Address [address] [place] [id number] Care Team Providers Name Role Phone Pcp, Patient Does Not Have A Primary Care Provider +[id number] 0-0000 Reason for Visit Reason Comments New Evaluation Skin Check Rash (Routine) Status Reason Specialty Diagnoses / Referred By Referred To Procedures Contact Contact New Request [facility] / Diagnoses Dermatitis Maynor Pena, Dermatology Procedures Discharge Follow-Up: Specialty Service [facility]; 3-5 Days CONSULT/REFERRAL DERMATOLOGY [address] [place] [address] [address] [place] [address] Encounter Details Date Type Department Care Team Description 07/05/2020 Office Visit [facility] Gwendolyn Moyer MD [address] [place] [address] [phone] Sneddon-Wallace disease (Primary Dx); Dermatology- Sanket Wells MD [address] [place] [phone] Angiolipoma; Nitro Abscess; [facility] Benign neoplasm of scalp and skin of neck [address] [facility] [place] [phone] Allergies No Known Allergiesdocumented as of this encounter (statuses as of 07/07/2020) Medications Medication Sig Dispensed Refills Start Date [...] as of this encounter (statuses as of 07/07/2020) Active Problems Problem Noted Date Rash 10/19/2014 Bullous disorder 10/19/2014 Irregular menstrual cycle 09/29/2012 Vaginitis and vulvovaginitis 09/29/2012 Overview: ICD10 Diagnosis 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 documented as of this encounter Last Filed Vital Signs Not on filedocumented in this encounter Progress Notes Gwendolyn Moyer MD - 07/05/2020 9:30 AM CST Red [...] well circumscribed evenly pigmented macule Nevus Papular (RIM TECHNICIAN): well circumscribed evenly pigmented papule Psoriasis Circumscribed [...] timeof their co-signature. Gwendolyn Ch MD PGY-2 [facility] Dermatology 07/05/2020 17:20 S CUTTING MACHINE OPERATOR documented in this encounter Miscellaneous Notes Addendum Note - Gwendolyn Moyer MD - 07/05/2020 9:30 AM GLASS CUTTING MACHINE OPERATOR Addended by: GWENDOLYN MOYER MD on: 07/07/2020 04:24 PM Modules accepted: Orders S CUTTING MACHINE OPERATOR documented in this encounter Plan of Treatment Date Type Specialty Care Team Description 07/17/2020 Nurse Visit Dermatology Visit, [facility] Nurse Name Type Priority Associated Diagnoses Date/Ti me THIOPURINE LAB Routine [place]ke[place]-Wallace 07/05/2020 11:22 AM GLASS CUTTING MACHINE OPERATOR METHYLTRANSFERASE, RBC disease ASPIRATE OR ABSCESS LAB Routine [place]-Wallace 03/2020 1:44 PM GLASS CUTTING MACHINE OPERATOR CULTURE(AEROBIC/ANAEROBI disease C) Name Type Priority Associated Diagnoses Order S chedule THIOPURINE LAB Routine Daronon-Wallace Expected: 07/05/2020, METHYLTRANSFERASE, RBC disease Expir es: 07/05/2021 Misc. 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 ASPIRATE OR ABSCESS Routine 07/05/2020 1:44 PM Giana son CULTURE(AEROBIC/SHANIQUE GLASS CUTTING MACHINE OPERATOR disease EROBIC) documented in this encounter Results SURGICAL PATHOLOGY EXAM (07/05/2020 1:44 PM GLASS CUTTING MACHINE OPERATOR) Case Report Surgical Pathology Case: [id number] [facility] Authorizing Provider: Sanket Nichols MD Collected: 07/05/2020 1344 SERVICES Ordering Location: [facility] Dermatology- Received: 07/05/[address] [place] [address] Pathologist: Lee Glez MD PHD Specimen: SKIN, OTHER Final Diagnosis [facility] Evei estelita Barber SKIN, BIOPSY: SERVICES signed by Bowen soliz, - IMMUNOFLUORESCENCE NEGATIVE FOR IgG MD Lee PHD on - IMMUNOFLUORESCENCE NEGATIVE FOR IgA 07/07/2020 at 2:55 - IMMUNOFLUORESCENCE NEGATIVE FOR IgM PM - IMMUNOFLUORESCENCE NEGATIVE FOR C3 I have personally reviewed a ll specimens/slides and agree with all statements made by residents, fellows or pathologist assistants whose name(s) may appear on this report. Final Diagnosis Final diagnosis requires cor relation with light microscopic features and clinical manifestations. [facility] Comment SERVICES Clinical DIF [facility] Information SERVICES Gross Description Specimen A is received in [facility] s fixative labelled with the patient s name, number skin, other and consists of brown-thomas pustular punch biopsy of skin (0.4 x 0.4 x 0.4 cm). The specimen i [facility] s submitted entirely to histology for direct immunoflu orescence. SERVICES Adrian Del Castillo MD (Pathologist Splicing Technician) Embedded Images [facility] SERVICES Specimen Tissue - SKIN, OTHER Performing Organization Address City[facility] Phone Number [facility] SERVICES CLIA: [id number] [place] [address] [place] [address] GLYCOSYLATED HEMOGLOBIN (A1C) (07/05/2020 11:22 AM GLASS CUTTING MACHINE OPERATOR) Pathologist Sig [facility] HGB A1C 5.0 4.0 - 6.0 % [facility] SERVICES Specimen Blood - ARM, RIGHT Performing Organization Address [facility] Phone Number [facility] SERVICES CLIA: [id number] [place] [address] [place] [address] HIV 1/2 AG-AB WITH REFLEX (07/05/2020 11:22 AM GLASS CUTTING MACHINE OPERATOR) Pathologist Sig nature HIV 1/2 Ag-Ab with Negative Negative [facility] Reflex SERVICES HIV Semi-quantitative 0.09 [facility] SERVICES Specimen Blood - ARM, RIGHT Narrative Performed At Non-reactive for HIV-1 antigen and HIV-1/HIV-2 antibod ies. [facility] SERVICES No laboratory evidence of HIV infection. Repeat in 2-4 weeks if acute HIV infection is suspected. Performing Organization Address [facility] Phone Number [facility] SERVICES CLIA: [id number] [place] [address] [place] [address] HCV ANTIBODY (07/05/2020 11:22 AM GLASS CUTTING MACHINE OPERATOR) Pathologist Sig nature HCV Ab Negative [facility] SERVICES HCV Semi-Quantitative 0.03 [facility] SERVICES Specimen Blood - ARM, RIGHT Performing Organization Address [facility] Phone Number [facility] SERVICES CLIA: [id number] [place] [address] [place] [address] HEPATITIS B CORE ANTIBODY IGM (07/05/2020 11:22 AM GLASS CUTTING MACHINE OPERATOR) Pathologist Sig nature HBCM Negative [facility] SERVICES HBCM Semi-Quantitative 0.06 [facility] SERVICES Specimen Blood - ARM, RIGHT Narrative Performed At [facility] has been reported to cause a negative bias, int erpret [facility] SERVICES results relative to patient's use of biotin. Performing Organization Address City/State/Zipcode Phone Number [facility] SERVICES CLIA: [id number] [place] [address] [place] [address] COMP. METABOLIC PANEL ([id number]) (07/05/2020 11:22 AM GLASS CUTTING MACHINE OPERATOR) Pathologist Sig nature NA 137 135 - 145 mmol/L [facility] SERVICES K 4.4 3.5 - 5.0 mmol/L [facility] SERVICES CL 102 98 - 108 mmol/L [facility] SERVICES CO2 TOTAL 25 23 - 31 mmol/L [facility] SERVICES AGAP 10 2 - 16 [facility] SERVICES BUN 13 7 - 23 mg/dL [facility] SERVICES GLUCOSE 98 70 - 110 mg/dL [facility] SERVICES CREATININE 0.63 0.50 - 1.04 [facility] mg/dL SERVICES TOTAL BILI 0.6 0.1 - 1.1 mg/dL [facility] SERVICES CALCIUM 8.8 8.6 - 10.6 mg/dL [facility] SERVICES T PROTEIN 7.9 6.3 - 8.2 g/dL [facility] SERVICES ALBUMIN 3.9 3.5 - 5.0 g/dL [facility] SERVICES ALK PHOS 104 34 - 122 U/L [facility] SERVICES ALTv 14 5 - 35 U/L [facility] SERVICES AST(SGOT) 22 13 - 40 U/L [facility] SERVICES eGFR Calculation 104.7 mL/min/1.73m2 [facility] (Non-) SERVICES eGFR Calculation 126.8 mL/min/1.73m2 [facility] () SERVICES Specimen Blood - ARM, RIGHT Narrative Performed At Association of Glomerular Filtration Rate (GFR) and St aging [facility] SERVICES of Kidney [...] . Performing Organization Address City/State/Zipcode Phone Number [facility] SERVICES CLIA: [id number] [place] [address] [place] [address] CBC WITH DIFF (07/05/2020 11:22 AM GLASS CUTTING MACHINE OPERATOR) Pathologist Sig nature WBC 11.72 (H) 4.30 - 11.10 [facility] 10*3/L SERVICES RBC 4.35 3.93 - 5.25 [facility] 10*6/L SERVICES HGB 12.2 11.6 - 15.0 [facility] g/dL SERVICES HCT 38.7 35.7 - 45.2 % [facility] MCV 89.0 80.6 - 95.5 fL [facility] SERVICES MCH 28.0 25.9 - 32.8 pg [facility] MCHC 31.5 (L) 31.6 - 35.1 [facility] g/dL SERVICES RDW-SD 45.3 39.0 - 49.9 fL [facility] RDW-CV 14.0 12.0 - 15.5 % [facility] [address] (H) 166 - 358 [facility] 10*3/L SERVICES MPV 8.8 (L) 9.5 - 12.9 fL [facility] NRBC/100 WBC 0.0 0.0 - 10.0 /100 [facility] WBCs SERVICES NRBC x10^3 <0.01 10*3/L [facility] GRAN MAT (NEUT) % 65.8 [...] SERVICES EOS x10^3 0.20 0.03 - 0.39 [facility] 10*3/uL SERVICES BASO x10^3 0.03 0.01 - 0.07 [facility] 10*3/uL SERVICES Specimen Blood - ARM, RIGHT Performing Organization Address City/State/Zipcode Phone Number [facility] CLIA: [id number] [place] [address] [place] [address] documented in this encounter Visit Diagnoses Diagnosis 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
--- OUTSIDE RECORDS SUMMARY | 2020-07-19 12:22 | XMS REPORT | Summary of Care ---
:1980 Author Organization [facility] Address [address] [place] [address] Care Team Providers Name Role Phone Pcp, Patient Does Not Have A Primary Care Provider +[id number] 0-0000 Reason for Visit Reason Comments New Evaluation Skin Check Rash (Routine) Status Reason Specialty Diagnoses / Referred By Referred To Procedures Contact Contact New Request [facility] / Diagnoses Dermatitis Maynor Pena, Dermatology Procedures Discharge Follow-Up: Specialty Service [facility]; 3-5 Days CONSULT/REFERRAL DERMATOLOGY [address] [place] [address] [address] [place] [address] Encounter Details Date Type Department Care Team Description 07/05/2020 Office Visit [facility] Gwendolyn Moyer MD [address] [place] [phone] Sneddon-Wallace disease (Primary Dx); Dermatology- Sanket Wells MD [address] [place] [phone] Angiolipoma; [place] Abscess; [facility] Benign neoplasm of scalp and skin of neck; [address]; [address] [place] [address] Allergies No Known Allergiesdocumented as of this encounter (statuses as of 07/12/2020) Medications Medication Sig Dispensed Refills Start Date End Date Status traMADOL (ULTRAM) Take 1 Tab 60 Tab 0 10/20/2014 Active 50 mg tablet by mouth every 6 (six) hours as needed for Pain (scale 4-6) or Pain (scale 7-10). predniSONE Take 1 Tab 30 Tab 1 12/02/2014 Active (DELTASONE) 20 mg by mouth tabletIndications: daily. Sneddon-Wallace disease predniSONE Take 1 Tab 100 Tab 0 12/27/2014 Active (DELTASONE) 5 mg by mouth tabletIndications: daily. Sneddon-Wallace disease nystatin Apply to 90 g 1 02/08/2015 Active (MYCOSTATIN) area(s) 2 100,000 unit/gram (two) times ointmentIndication daily. s: Sneddon-Wallace disease dapsone 25 mg Take 2 60 tablet 0 12/22/2018 Activ e tabletIndications: tablets by Autoimmune mouth daily. disorder dapsone 25 mg Take 1 10 tablet 0 06/06/2020 Activ e tabletIndications: tablet by Dermatitis mouth daily. doxycycline Take 1 60 capsule 2 07/12/2020 Active monohydrate 100 mg capsule by capsuleIndications mouth 2 : (two) times Sngoldie-Wallace daily. disease triamcinolone Apply to 454 g 3 07/12/2020 Activ e acetonide 0.1 % area(s) 2 ointmentIndication (two) times s: daily. Sneddon-Wallace disease triamcinolone Apply to 454 g 3 03/29/2015 Disco ntinued acetonide area(s) 2 0 (Reorder) (KENALOG) 0.1 % (two) times ointmentIndication daily. s: Sneddon-Wallace disease doxycycline Take 1 Cap 60 Cap 2 03/31/2015 Discon tinued (MONODOX) 100 mg by mouth 2 0 (R eorder) capsule (two) times daily. documented as of this encounter (statuses as of 07/12/2020) Active Problems Problem Noted Date Rash 10/19/2014 Bullous disorder 10/19/2014 Irregular menstrual cycle 09/29/2012 Vaginitis and vulvovaginitis 09/29/2012 Overview: ICD10 Diagnosis Term Fruit Pitter Utility Need for prophylactic vaccination with combined 2012 dfaeydtwqk-csxacyk-lbniakjkz (DTP) vaccine Morbid obesity 09/29/2012 AN (acanthosis nigricans) 09/29/2012 Headache 09/29/2012 Overview: ICD10 Diagnosis Term Fruit Pitter Utility documented as of this encounter (statuses as of 07/12/2020) Immunizations Name Administration Dates Next Due TDAP [...] with No / Unsure 07/05/2020 9:34 AM ENGINEERING GROUP LEADER someone who was confirmed or suspected to [...] reported diagnosis 1985 during surgery HTN (hypertension) Sneddon-Wallace disease (-) [...] well circumscribed evenly pigmented macule Nevus Papular (WELDER OPERATOR): well circumscribed evenly pigmented papule Psoriasis Circumscribed (PC): well circumscribed erythema and scaling Psoriasis Diffuse (PD): diffuse patches of erythema and scaling Seborrheic Keratosis (SK): verrucous brown papules and plaques Scar (SR): cicatricial change Verruca Vulgarus (W): warty hyperkeratotic papule 07/05/2020 07/05/2020 07/05/2020 07/05/2020 07/05/2020 07/05/2020 Assessment/Plan 1. Daronon Wallace disease - Discussed possible etiologies, prognosis and [...] timeof their co-signature. Gwendolyn Ch MD PGY-2 [facility] Dermatology 07/05/2020 17:20 NEERING GROUP LEADER documented in this encounter Miscellaneous Notes Addendum Note - Gwendolyn Moyer MD - 07/05/2020 9:30 AM ENGINEERING GROUP LEADER Addended by: GWENDOLYN MOYER MD on: 07/12/2020 01:05 PM Modules accepted: Orders NEERING GROUP LEADER Addendum Note - Gwendolyn Moyer MD - 07/05/2020 9:30 AM ENGINEERING GROUP LEADER Addended by: GWENDOLYN MOYER MD on: 07/07/2020 04:24 PM Modules accepted: Orders NEERING GROUP LEADER documented in this encounter Plan of Treatment Date Type Specialty Care Team Description 07/17/2020 Nurse Visit Dermatology Visit, [facility] Dermatology Nurse Name Type Priority Associated Diagnoses Order [facility]. Sendout- LAB Routine Sneddon-Wallace disease Expected: 07/07/2020, [id number] Expires: 1 09/07/2020 PANEL [facility] Routine Sneddon-Wallace disease Expected: 07/12/2020, [id number]:PEMPHIGUS Expires: 1 09/12/2020 PANEL Health Maintenance Due Date Last Done Comments PNEUMOCOCCAL 0-64 YEARS COMBINED SERIES (1 01/14/1986 of 3 - PCV13) Depression Screening 1992 PAP SMEAR 09/30/2015 09/29/2012 Breast Cancer Screening (MAMMOGRAM) 2020 INFLUENZA VACCINE (#1) 2020 DTaP,Tdap,and Td Vaccines (3 - Td) 09/29/2022 09/29/2012, 0 07/28/1994 documented as of this encounter Procedures Procedure Name Priority Date/Time Associated Comments Diagnosis SURGICAL PATHOLOGY EXAM Routine 07/05/2020 1:44 [place] nson Results for this PM ENGINEERING GROUP LEADER disease procedure are i n the results section. ASPIRATE OR ABSCESS Routine 07/05/2020 1:44 Emanuel Results for this CULTURE(AEROBIC/ANAEROBI PM ENGINEERING GROUP LEADER disease pro cedure are in C) the results section. DERMATOPATHOLOGY TISSUE Routine 07/05/2020 EXAM documented in this encounter Results ASPIRATE OR ABSCESS CULTURE(AEROBIC/ANAEROBIC) (07/05/2020 1:44 PM ENGINEERING GROUP LEADER) Aspirate or No aerobic/anaerobic [facility] Abscess Culture organisms isolated SERVICES Gram stain No Organisms seen [facility] SERVICES Gram stain No PMNs or [facility] Mononuclear cells SERVICES observed Specimen Wound - SKIN Performing Organization Address City/[facility]/Zipcode Phone Number [facility] CLIA: [id number] [place] [address] [place] [address] SURGICAL PATHOLOGY EXAM (07/05/2020 1:44 PM ENGINEERING GROUP LEADER) Case Report Surgical Pathology Case: [id number] [facility] Authorizing Provider: Sanket Nichols MD Collected: 07/05/2020 1344 SERVICES Ordering Location: [facility] Dermatology- Received: 07/05/[address] [place] [address] Pathologist: Lee Glez MD PHD Specimen: SKIN, OTHER Final Diagnosis [facility] Electroni estelita Barber SKIN, BIOPSY: SERVICES signed by [...] with light microscopic features and clinical manifestations. [facility] Comment SERVICES Clinical DIF [facility] Information SERVICES Gross Description Specimen A is received in [facility] fixative labelled with the patient s name, number skin, other and consists of brown-thomas pustular punch biopsy of skin (0.4 x 0.4 x 0.4 cm). The specimen i [facility] s submitted entirely to histology for direct immunoflu orescence. SERVICES Adrian Del Castillo MD (Pathologist Tile Conduit Layer) Embedded Images [facility] SERVICES Specimen Tissue - SKIN, OTHER Performing Organization Address City/[facility]/Zipcode Phone Number [facility] CLIA: [id number] [place] [address] [place] [address] GLYCOSYLATED HEMOGLOBIN (A1C) (07/05/2020 11:22 AM ENGINEERING GROUP LEADER) Pathologist Sig nature HGB A1C 5.0 4.0 - 6.0 % [facility] SERVICES Specimen Blood - ARM, RIGHT Performing Organization Address City/[facility]/Zipcode Phone Number [facility] CLIA: [id number] [place] [address] [place] [address] HIV 1/2 AG-AB WITH REFLEX (07/05/2020 11:22 AM ENGINEERING GROUP LEADER) Pathologist Sig nature HIV 1/2 Ag-Ab with Negative Negative [facility] Reflex SERVICES HIV Semi-quantitative 0.09 [facility] SERVICES Specimen Blood - ARM, RIGHT Narrative Performed At Non-reactive for HIV-1 antigen and HIV-1/HIV-2 antibod ies. [facility] SERVICES No laboratory evidence of HIV infection. Repeat in 2-4 weeks if acute HIV infection is suspected. Performing Organization Address City/[facility] Phone Number [facility] CLIA: [id number] [place] [address] [place] [address] HCV ANTIBODY (07/05/2020 11:22 AM ENGINEERING GROUP LEADER) Pathologist Sig nature HCV Ab Negative [facility] SERVICES HCV Semi-Quantitative 0.03 [facility] SERVICES Specimen Blood - ARM, RIGHT Performing Organization Address City/[facility] Phone Number [facility] CLIA: [id number] [place] [address] [place] [address] HEPATITIS B CORE ANTIBODY IGM (07/05/2020 11:22 AM ENGINEERING GROUP LEADER) Pathologist Sig nature HBCM Negative [facility] SERVICES HBCM Semi-Quantitative 0.06 [facility] SERVICES Specimen Blood - ARM, RIGHT Narrative Performed At Biotin has been reported to cause a negative bias, int erpret [facility] SERVICES results relative to patient's use of biotin. Performing Organization Address City/[facility] Phone Number [facility] CLIA: [id number] [place] [address] [place] [address] THIOPURINE METHYLTRANSFERASE, RBC (07/05/2020 11:22 AM ENGINEERING GROUP LEADER) THIOPURINE 24.3 24.0 - 44.0 [facility] METHYLTRANSFERASE, Comment: U/mL RBC INTERPRETIVE INFORMATION: Thiopurine Methyltransferase , RBC Normal TPMT activity: 24.0-44.0 U/mL................Individuals are predicte d to be at low risk of bone marrow toxicity (myelosuppression) as a consequence of standard thiopurine therapy; no dose ad justment is recommended. Intermediate TPMT activity: 17.0-23.9 U/mL................Individuals are predicte d to be at intermediate risk of bone marrow toxicity (myelosuppre ssion) as a consequence of standard thiopurine therapy; a dose red uction and therapeutic drug management is recommended. Low TPMT activity: less than 17.0 U/mL...........Individuals are predicte d to be at high risk of bone marrow toxicity (myelosuppression) a s a consequence of standard thiopurine dosing. It is recom mended to avoid the use of thiopurine drugs. High TPMT activity: greater than 44.0 U/mL........Individuals are not pred icted to be at risk for bone marrow toxicity (myelosuppression) as a consequence of standard thiopurine dosing, but may be at risk for therapeutic failure due to excessive inactivation of t hiopurine drugs. Individuals may require higher than the normal standard dose. Therapeutic drug management is recommended. The TPMT, RBC assay is used as a screen to detect yaneli viduals with low and intermediate TPMT activity who may be at risk for myelosuppression when exposed to standard doses of thi opurines, including azathioprine (Imuran) and 6-mercaptopurine ( Purinethol). TPMT is the primary metabolic route for inactivation o f thiopurine drugs in the bone marrow. When TPMT activity is low, i t is predicted that proportionately more 6-mercaptopurine c an be converted into the cytotoxic 6-thioguanine nucleotides that accumulate in the bone marrow causing excessive toxici ty. The activity of TPMT is measured by the nanomoles of 6-methylmercaptopurine (inactive metabolite) produced per 1 mL of packed red blood cells, (U/mL). TPMT phenotype testing does not replace the need for c linical monitoring of patients treated with thiopurine drugs. Genotype for TPMT cannot be inferred from TPMT activity (phenotype) . Phenotype testing should not be requested for patients currently treated with thiopurine drugs. Current TPMT phenotype may not reflect future TPMT phenotype, particularly in patients who re ceived blood transfusion within 30-60 days of testing. TPMT enzym e activity can be inhibited by several drugs such as: naproxen (A leve), ibuprofen (Advil, Motrin), ketoprofen (Orudis), furose mide (Lasix), sulfasalazine (Azulfidine), mesalamine (Asaco l), olsalazine (Dipentum), mefenamic acid (Ponstel), thiaz lópez diuretics, and benzoic acid inhibitors. TPMT inhibitor s may contribute to falsely low results; patients should abs tain from these drugs for at least 48 hours prior to TPMT testin g. Falsely low results may also occur as a result of inappropriat e specimen handling and hemolysis. Test developed and characteristics determined by [employer]. See Compliance Statement B: [email or web address]. com/CS Performed By: [facility] [address] [place] [address] Desulfurizer Machine: Joseline Mao MD Specimen Blood - ARM, RIGHT Performing Organization Address City/State/Zipcode Phone Number [address] [phone] COMP. METABOLIC PANEL ([id number]) (07/05/2020 11:22 AM ENGINEERING GROUP LEADER) Pathologist Sig nature NA 137 135 - 145 mmol/L [facility] K 4.4 3.5 - 5.0 mmol/L [facility] CL 102 98 - 108 mmol/L [facility] CO2 TOTAL 25 23 - 31 mmol/L [facility] AGAP 10 2 - 16 [facility] BUN 13 7 - 23 mg/dL [facility] GLUCOSE 98 70 - 110 mg/dL [facility] SERVICES CREATININE 0.63 0.50 - 1.04 [facility] mg/dL SERVICES TOTAL BILI 0.6 0.1 - 1.1 mg/dL [facility] SERVICES CALCIUM 8.8 8.6 - 10.6 mg/dL [facility] SERVICES T PROTEIN 7.9 6.3 - 8.2 g/dL [facility] SERVICES ALBUMIN 3.9 3.5 - 5.0 g/dL [facility] SERVICES ALK PHOS 104 34 - 122 U/L [facility] SERVICES ALTv 14 5 - 35 U/L [facility] SERVICES AST(SGOT) 22 13 - 40 U/L [facility] SERVICES eGFR Calculation 104.7 mL/min/1.73m2 [facility] (Non-) SERVICES eGFR Calculation 126.8 mL/min/1.73m2 [facility] () SERVICES Specimen Blood - ARM, RIGHT Narrative Performed At Association of Glomerular Filtration Rate (GFR) and St aging [facility] SERVICES of Kidney Disease* + + [...] . Performing Organization Address City/State/Zipcode Phone Number [facility] CLIA: [id number] [place] [address] [place] [address] CBC WITH DIFF (07/05/2020 11:22 AM ENGINEERING GROUP LEADER) Pathologist Sig nature WBC 11.72 (H) 4.30 - 11.10 [facility] 10*3/L SERVICES RBC 4.35 3.93 - 5.25 [facility] 10*6/L SERVICES HGB 12.2 11.6 - 15.0 [facility] g/dL SERVICES HCT 38.7 35.7 - 45.2 % [facility] SERVICES MCV 89.0 80.6 - 95.5 fL [facility] SERVICES MCH 28.0 25.9 - 32.8 pg [facility] SERVICES MCHC 31.5 (L) 31.6 - 35.1 [facility] g/dL SERVICES RDW-SD 45.3 39.0 - [...] RIGHT Performing Organization Address City/State/Zipcode Phone Number [facility] CLIA: [id number] [place] [address] [place] [address] documented in this encounter Visit Diagnoses Diagnosis 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
--- OUTSIDE RECORDS SUMMARY | 2020-07-19 12:22 | XMS REPORT | Summary of Care ---
:1980 Author Organization [facility] Address [address] [place] [address] Care Team Providers Name Role Phone Pcp, Patient Does Not Have A Primary Care Provider +1-000-00 0-0000 Reason for Visit Reason Comments Blood Draw Encounter Details Date Type Department Care Team Description 07/13/2020 Boat Cleaner Visit [facility] Clinical Say Wells MD [address] [place] [address] [facility] - [facility], [facility]-Lab disease [address] [phone] Allergies No Known Allergiesdocumented as of this encounter (statuses as of 07/13/2020) Medications Medication Sig Dispensed Refills Start Date [...] daily. Sneddon-Gonzalez disease nystatin (MYCOSTATIN) Apply to 90 g 1 02/08/2015 Active 100,000 unit/gram area(s) 2 (two) ointmentIndications: times daily. Sneddon-Gonzalez disease dapsone 25 mg Take 2 tablets 60 tablet 0 12/22/2018 Active tabletIndications: by mouth daily. Autoimmune disorder dapsone 25 mg Take 1 tablet by 10 tablet 0 06/06/2020 Active tabletIndications: mouth daily. Dermatitis doxycycline monohydrate Take 1 capsule 60 capsule 2 07/12/2020 Active 100 mg by mouth 2 (two) capsuleIndications: times daily. Sneddon-Gonzalez disease triamcinolone acetonide Apply to 454 g 3 07/12/2020 Active 0.1 % area(s) 2 (two) ointmentIndications: times daily. Sneddon-Gonzalez disease documented as of this encounter (statuses as of 07/13/2020) Active Problems Problem Noted Date Rash 10/19/2014 Bullous disorder 10/19/2014 Irregular menstrual cycle 09/29/2012 Vaginitis and vulvovaginitis 09/29/2012 Overview: ICD10 Diagnosis Term Building Engineer Utility Need for prophylactic vaccination with combined 2012 aoyikcafhm-ygykoki-smeqguojr (DTP) vaccine Morbid obesity 09/29/2012 AN (acanthosis nigricans) 09/29/2012 Headache 09/29/2012 Overview: ICD10 Diagnosis Term Building Engineer Utility documented as of this encounter (statuses as of 07/13/2020) Immunizations Name Administration Dates Next Due TDAP [...] been in contact with No / Unsure 07/13/2020 11:27 AM CAN TECHNICIAN someone who was confirmed or suspected to have Coronavirus / COVID-19? documented as of this encounter Last Filed Vital Signs Not on filedocumented in this encounter Nursing Notes Katy Capps - 07/13/2020 12:45 PM CST Diagnoses: Sneddon-Gonzalez disease Venipuncture collection performed by clean technique on the left anticubitus. Total of 1 attempts were made. Slight pressure and a bandage/dressing were applied to the site(s). The patient experienced no complications. The following specimens were processed according to instructions and sent to [facility] laboratories LT BLUE SST RED 1 LAV PPT DK GREEN (L) DK GREEN (S)/// NGO DK BLUE (K2) DK BLUE (S) ACD Blood Culture NIPT / NTD UA Urine culture Aptima tube documented in this encounter Plan of Treatment Date Type Specialty Care Team Description 07/17/2020 Nurse Visit Dermatology Visit, [facility] Dermatology Nurse Name Type Priority Associated Diagnoses Date/Ti [facility]. Sendout- LAB Routine Sneddon-Gonzalez disease 07/13/2020 11:39 AM CAN TECHNICIAN [id number] PANEL Health Maintenance Due Date Last Done [...] Effective Dates Phone Addre ss Type Group [facility] STAR [id number] 2014-Present Medicaid COMM PLAN - MANAGED MEDICAID documented as of this encounter
--- OUTSIDE RECORDS SUMMARY | 2020-07-19 12:22 | XMS REPORT | Summary of Care ---
:1980 Author Organization [facility] Address [address] [place] [address] Care Team Providers Name Role Phone Pcp, Patient Does Not Have A Primary Care Provider +1-000-00 0-0000 Reason for Visit Reason Comments NURSE VISIT suture removal to abdomen Encounter Details Date Type Department Care Team Description 07/17/2020 Nurse Visit [facility] Melanie Maldonado MD [address] [facility] [id number] [place] [address] Emanuel Dermatology- Visit, [facility] Dermatology Nurse disease (Primary Dx) [facility] [address] [facility]th [place] [address] Allergies No Known Allergiesdocumented as of this encounter (statuses as of 07/17/2020) Medications Medication Sig Dispensed Refills Start Date [...] as of this encounter (statuses as of 07/17/2020) Active Problems Problem Noted Date Rash 10/19/2014 Bullous disorder 10/19/2014 Irregular menstrual cycle 09/29/2012 Vaginitis and vulvovaginitis 09/29/2012 Overview: ICD10 Diagnosis 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 documented as of this encounter Last Filed Vital Signs Not on filedocumented in this encounter Progress Notes Kassy Browning LVN - 07/17/2020 10:00 AM ERGINARed Slater is a 40 year old female. Patient presents for suture removal to 2 sites on her abdomen, patient states that a suture to 1 additional site, fell out at home with no complications. The incisions are well approximated and healedwithout signs of infection. The sutures are removed and patient tolerated well. Patient is requesting to speak to provider; Dr.Munoz Ch called to room to assist. Patient is to return prn. ISION MECHANICAL INSTRUMENT MAKER documented in this encounter Plan of Treatment Date Type Specialty Care Team Description 07/31/2020 Office Visit Dermatology Ratna Martinez MD [address] [place] [address] [address]vd[address] 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
--- OUTSIDE RECORDS SUMMARY | 2020-07-19 12:23 | XMS REPORT | Summary of Care ---
:1980 Author Organization [facility] Address [address] [place] [address] Care Team Providers Name Role Phone Pcp, Patient Does Not Have A Primary Care Provider +1-000-00 0-0000 Reason for Visit Reason Comments New Evaluation Skin Check Rash (Routine) Status Reason Specialty Diagnoses / Referred By Referred To Procedures Contact Contact Pending Review [facility] / Diagnoses Dermatitis Maynor Pena, Dermatology Procedures Discharge Follow-Up: Specialty Service [facility]; 3-5 Days CONSULT/REFERRAL DERMATOLOGY [address] [place] [address] [address] [place] [address] Encounter Details Date Type Department Care Team Description 07/05/2020 Office Visit [facility] Gwendolyn Moyer MD [address] [place] [phone] Sneddon-Wallace disease (Primary Dx); Dermatology- Sanket Wells MD [address] [place] [phone] Angiolipoma; [place] Abscess; [facility] Benign neoplasm of scalp and skin of neck; [address]; [address], [address] [place] [address] Allergies No Known Allergiesdocumented as [...] by capsuleIndications mouth 2 : (two) times Sneddon-Wallace daily. disease doxycycline Take 1 60 tablet 3 07/17/2020 Active hyclate 100 mg tablet by tabletIndications: mouth 2 Sneddon-Wallace (two) times disease daily. triamcinolone Apply to 454 g 3 07/17/2020 Activ e acetonide 0.1 % area(s) 2 ointmentIndication (two) times s: daily. Sneddon-Wallace disease triamcinolone Apply to 454 g 3 03/29/2015 Disco ntinued acetonide area(s) 2 0 (Reorder) (KENALOG) 0.1 % (two) times ointmentIndication daily. s: Sneddon-Wallace disease doxycycline Take 1 Cap 60 Cap 2 03/31/2015 Discon tinued (MONODOX) 100 mg by mouth 2 0 (R eorder) capsule (two) times daily. triamcinolone Apply to 454 g 3 07/12/2020 Disco ntinued acetonide 0.1 % area(s) 2 0 (Reo rder) ointmentIndication (two) times s: daily. 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 Gwendolyn Ch MD PGY-2 [facility] Dermatology 07/05/2020 17:20 AL JOURNALIST documented in this encounter Miscellaneous Notes Addendum Note - Gwendolyn Moyer MD - 07/05/2020 9:30 AM VISUAL JOURNALIST Addended by: GWENDOLYN MYOER MD on: 07/17/2020 10:59 AM Modules accepted: Orders AL JOURNALIST Addendum Note - Gwendolyn Moyer MD - 07/05/2020 9:30 AM VISUAL JOURNALIST Addended by: GWENDOLYN MOYER MD on: 07/12/2020 01:05 PM Modules accepted: Orders AL JOURNALIST Addendum Note - Gwendolyn Moyer MD - 07/05/2020 9:30 AM VISUAL JOURNALIST Addended by: GWENDOLYN MOYER MD on: 07/07/2020 04:24 PM Modules accepted: Orders AL JOURNALIST documented in this encounter Plan of Treatment Date Type Specialty Care Team Description 07/31/2020 Office Visit Dermatology Ratna Martinez MD [address] [place], [place] [address]d. [place], [place] [phone] Name Type Priority Associated Diagnoses Date/Ti or Misc. Sendout- LAB Routine Sneddon-Wallace disease 07/13/2020 11:39 AM VISUAL JOURNALIST [id number] PANEL Name Type Priority Associated Diagnoses Order S chedule Misc. Sendout- LAB Routine Sneddon-Wallace disease Expected: 07/07/2020, [id number] Expires: 1 09/07/2020 PANEL Misc. Sendout- LAB Routine Sneddon-Wallace disease Expected: 07/12/2020, [id number] Expires: 1 09/12/2020 PANEL Health Maintenance Due [...] Diagnosis SURGICAL PATHOLOGY EXAM Routine 07/05/2020 1:44 Sneddon-Wilki nson Results for this PM VISUAL JOURNALIST disease procedure are i n the results section. ASPIRATE OR ABSCESS Routine 07/05/2020 1:44 Emanuel Results for this CULTURE(AEROBIC/ANAEROBI PM VISUAL JOURNALIST disease pro cedure are in C) the results section. DERMATOPATHOLOGY TISSUE Routine 07/05/2020 Resu lts for this EXAM procedure are i n the results section. documented in this encounter Results ASPIRATE OR ABSCESS CULTURE(AEROBIC/ANAEROBIC) (07/05/2020 1:44 PM VISUAL JOURNALIST) Aspirate or No aerobic/anaerobic [facility] Abscess Culture organisms isolated SERVICES Gram stain No Organisms seen [facility] SERVICES Gram stain No PMNs or [facility] Mononuclear cells SERVICES observed Specimen Wound - SKIN Performing Organization Address City/State/Zipcode Phone Number [facility] CLIA: [id number] [place] [address] [place] [address] SURGICAL PATHOLOGY EXAM (07/05/2020 1:44 PM VISUAL JOURNALIST) Case Report Surgical Pathology Case: [id number] [facility] Authorizing Provider: Sanket Nichols MD Collected: 07/05/2020 1344 SERVICES Ordering Location: [facility] Derm[facility]- Received: 07/05/2020 1350 [place] Pathologist: Lee Glez MD PHD Specimen: SKIN, OTHER Final Diagnosis [facility] Evei estelita Barber SKIN, BIOPSY: SERVICES signed by Q iu, - IMMUNOFLUORESCENCE NEGATIVE FOR IgG MD Lee [...] with light microscopic features and clinical manifestations. [facility] Comment SERVICES Clinical DIF [facility] Information SERVICES Gross Description Specimen A is received in [facility] s fixative labelled with the patient s name, number skin, other and consists of brown-thomas pustular punch biopsy of skin (0.4 x 0.4 x 0.4 cm). The specimen i [facility] s submitted entirely to histology for direct immunoflu orescence. SERVICES Adrian Del Castillo MD (Pathologist Bark Press Operator) Embedded Images [facility] SERVICES Specimen Tissue - SKIN, OTHER Performing Organization Address City/[facility] Phone Number [facility] CLIA: [id number] [place] [address] [place] [address] GLYCOSYLATED HEMOGLOBIN (A1C) (07/05/2020 11:22 AM VISUAL JOURNALIST) Pathologist Sig [facility] HGB A1C 5.0 4.0 - 6.0 % [facility] SERVICES Specimen Blood - ARM, RIGHT Performing Organization Address [facility] Phone Number [facility] CLIA: [id number] [place] [address] [place] [address] HIV 1/2 AG-AB WITH REFLEX (07/05/2020 11:22 AM VISUAL JOURNALIST) Pathologist [facility] HIV 1/2 Ag-Ab with Negative Negative [facility] Reflex SERVICES HIV Semi-quantitative 0.09 [facility] SERVICES Specimen Blood - ARM, RIGHT Narrative Performed At Non-reactive for HIV-1 antigen and HIV-1/HIV-2 antibod ies. [facility] No laboratory evidence of HIV infection. Repeat in 2-4 weeks if acute HIV infection is suspected. Performing Organization Address City/[facility] Phone Number [facility] CLIA: [id number] [place] [address] [phone] [address] [facility] HCV ANTIBODY (07/05/2020 11:22 AM VISUAL JOURNALIST) Pathologist Sig nature HCV Ab Negative [facility] HCV Semi-Quantitative 0.03 [facility] SERVICES Specimen Blood - ARM, RIGHT Performing Organization Address City/State/Zipcode Phone Number [facility] CLIA: [id number] [place] [address] [place] [address] HEPATITIS B CORE ANTIBODY IGM (07/05/2020 11:22 AM VISUAL JOURNALIST) Pathologist Sig nature HBCM Negative [facility] HBCM Semi-Quantitative 0.06 [facility] SERVICES Specimen Blood - ARM, RIGHT Narrative Performed At Biotin has been reported to cause a negative bias, int erpret [facility] SERVICES results relative to patient's use of biotin. Performing Organization Address City/State/Zipcode Phone Number [facility] CLIA: [id number] [place] [address] [place] [address] THIOPURINE METHYLTRANSFERASE, RBC (07/05/2020 11:22 AM VISUAL JOURNALIST) THIOPURINE 24.3 24.0 - 44.0 [facility] METHYLTRANSFERASE, [...] hemolysis. Test developed and characteristics determined by [facility]. See Compliance Statement B: [email or web address] Performed By: [facility] [address] [place] [address] Linoleum Floor Installer: Joseline Mao MD Specimen Blood - ARM, RIGHT Performing Organization Address City/State/Zipcode Phone Number [facility] [address] [place] [address] COMP. METABOLIC PANEL ([id number]) (07/05/2020 11:22 AM VISUAL JOURNALIST) Pathologist Sig nature NA 137 135 - 145 mmol/L [facility] K 4.4 3.5 - 5.0 mmol/L [facility] CL 102 98 - 108 mmol/L [facility] CO2 TOTAL 25 23 - 31 mmol/L [facility] AGAP 10 2 - 16 [facility] BUN 13 7 - 23 mg/dL [facility] GLUCOSE 98 70 - 110 mg/dL [facility] CREATININE 0.63 0.50 - 1.04 [facility] mg/dL SERVICES TOTAL BILI 0.6 0.1 - 1.1 mg/dL [facility] SERVICES CALCIUM 8.8 8.6 - 10.6 mg/dL [facility] SERVICES T PROTEIN 7.9 6.3 - 8.2 g/dL [facility] SERVICES ALBUMIN 3.9 3.5 - 5.0 g/dL [facility] ALK PHOS 104 34 - 122 U/L [facility] ALTv 14 5 - 35 U/L [facility] AST(SGOT) 22 13 - 40 U/L [facility] eGFR Calculation 104.7 mL/min/1.73m2 [facility] (Non-) SERVICES eGFR Calculation 126.8 mL/min/1.73m2 [facility] () SERVICES Specimen Blood - ARM, RIGHT Narrative Performed At Association of Glomerular Filtration Rate (GFR) and St aging [facility] SERVICES of Kidney Disease* + + [...] . Performing Organization Address City/State/Zipcode Phone Number [facility] CLIA: [id number] [place] [address] [place] [address] CBC WITH DIFF (07/05/2020 11:22 AM VISUAL JOURNALIST) Pathologist Sig nature WBC 11.72 (H) 4.30 [...] SERVICES LYMPH x10^3 3.06 1.32 - 3.29 [facility] 10*3/uL SERVICES MONO x10^3 0.67 0.33 - 0.92 [facility] 10*3/uL SERVICES EOS x10^3 0.20 0.03 - 0.39 [facility] 10*3/uL SERVICES BASO x10^3 0.03 0.01 - 0.07 [facility] 10*3/uL SERVICES Specimen Blood - ARM, RIGHT Performing Organization Address City/State/Zipcode Phone Number [facility] CLIA: [id number] [place] [address] [place] [address] DERMATOPATHOLOGY TISSUE EXAM (07/05/2020) Specimen Performing Organization Address City/State/Zipcode Phone Number [facility] documented in this encounter Visit Diagnoses Diagnosis [...] Effective Dates Phone Addre ss Type Group [facility] [id number] 2014-Present Medicaid COMM PLAN - MANAGED MEDICAID documented as of this encounter"
--- OUTSIDE RECORDS SUMMARY | 2020-07-19 12:23 | XMS REPORT | Summary of Care ---
:[address] [facility] Address [address] [place] [address] Care Team Providers Name Role Phone Pcp, Patient Does Not Have A Primary Care Provider +1-000-00 0-0000 Reason for Visit Reason Comments Refill Request Encounter Details Date Type Department Care Team Description 07/18/2020 Refill [facility] Dermatology- Gwendolyn Henderson MD Refill Request [address] [phone] [place], [place] [address] [place] [phone] Allergies No Known Allergiesdocumented as of this encounter (statuses as of 07/19/2020) Medications Medication Sig Dispensed Refills Start Date [...] 2 (two) capsuleIndications: times daily. Sneddon-Gonzalez disease doxycycline hyclate 100 Take 1 tablet by 60 tablet 3 0 Active mg tabletIndications: mouth 2 (two) Sneddon-Gonzalez times daily. disease triamcinolone acetonide Apply to 454 g 3 07/17/2020 Active 0.1 % area(s) 2 (two) ointmentIndications: times daily. Sneddon-Gonzalez disease minocycline 100 mg Take 1 tablet by 60 tablet 3 07/19/2020 Active tablet mouth 2 (two) times daily. documented as of this encounter (statuses as of 07/19/2020) Active Problems Problem Noted Date Rash 10/19/2014 Bullous disorder 10/19/2014 Irregular menstrual cycle 09/29/2012 Vaginitis and vulvovaginitis 09/29/2012 Overview: ICD10 Diagnosis Term Critical Care Nurse Practitioner Utility Need for prophylactic vaccination with combined 2012 trtuypngti-bgscncf-myfjiaauo (DTP) vaccine Morbid obesity 09/29/2012 AN (acanthosis nigricans) 09/29/2012 Headache 09/29/2012 Overview: ICD10 Diagnosis Term Critical Care Nurse Practitioner Utility documented as of this encounter (statuses as of 07/19/2020) Immunizations Name Administration Dates Next Due TDAP [...] with No / Unsure 07/13/2020 11:27 AM PRESIDENT AND CHIEF COMMERCIAL OFFICER someone who was confirmed or suspected to have Coronavirus / COVID-19? documented as of this encounter Last Filed Vital Signs Not on filedocumented in this encounter Miscellaneous Notes Telephone Encounter - Allie Munguia MA - 07/19/2020 11:59 AM CSTOk to change/send Minocycline 100mg PO BID. ERx sent. elephone Encounter - Gwendolyn Kaye MD - 07/19/2020 11:38 AM CSTPlease send Minocycline 100 mg por twice a day. Thanks elephone Encounter - Allie Munguia MA - 07/19/2020 11:05 AM PRESIDENT AND CHIEF COMMERCIAL OFFICER Patients Pharmacy is stating [place] and Hyclate of the Doxycycline tablets are not covered by her insurance. Is there an alternative you can change it to, or would we like to begin the PA process? "Pharmacy comment: mono or hyclate is not covered under her plan please change drug." IDENT AND CHIEF COMMERCIAL OFFICER documented in this encounter Plan of Treatment Date Type Specialty Care Team Description 07/31/2020 Office Visit Dermatology Ratna Martinez MD [address] [place] [address]. [place], [place] [phone] Health Maintenance Due Date [...] / Subscriber ID Effective Dates Phone Addre [facility] [id number] 2014-Present Medicaid COMM PLAN - MANAGED MEDICAID documented as of this encounter
--- NOTE | 2020-07-19 12:32 | ER ---
Nurse's Notes [facility] Name: Red Slater Age: 40 yrs Sex: Female : 1980 Arrival Date: 07/19/2020 Time: 12:14 Bed Waiting Private MD: Diagnosis: Assessment: 07/19 12:31 Reassessment: Pt told registration that she was leaving and come back later. sv ED Course: 12:14 Patient arrived in ED. rg4 12:28 Patient's name was called from ER lobby. No response. sv Administered Medications: No medications were administered Outcome: 12:31 Patient left the ED. sv Signatures: Samantha Santillan RN RN Lauryn Goldsmith rg4
== END 2020-07-19 12:31 | disposition left against medical advice (07) ==
DX: Z02.9 Encounter for administrative examinations, unspecified (principal)

== ENCOUNTER 2024-01-26 20:10 | Emergency (ER) | payer OTHER ==
--- OUTSIDE RECORDS SUMMARY | 2024-01-26 20:23 | XMS REPORT | Continuity of Care Document ---
Author Name Unknown Address [address] [facility] [address]. [address] [place] [address] [facility] thconnect Address [address] [facility]. [address] [place] [address] Care Team Providers Care Financial Institution Vice President Name Role Phone SABINO SIMMONS Primary Care Physician EKTA Hare Attending Clinician SABINO Landa Attending Clinician SABINO Sanchez Attending Clinician Nissa Jansen PTA Attending Clinician Unavail LESLYE Valenzuela Attending Clinician LESLYE Arriola Attending Clinician Fredo Medellin PT, Gabrielle Attending Clinician Leslye Arriola MD Attending Clinician Jacqueline Baker LCSW Attending Clinician 2, [facility] Attending Clinician Unavailable MICHAEL BETANCUR Attending Clinician Unavaila JAVI Hernandez Attending Clinician Unavailab le Doctor Unassigned, Mark Attending Clinician U navailable Pcp-Lab Attending Clinician Unavailable Gypsy LOMELI, Michael Spear Attending Clinician +[phone] Nabila Pedro MD Attending Clinician + [phone] TAYLOR BYNUM Attending Clinician Unavailab Alice Dalton MD Attending Clinician +[phone] Taylor Bynum DO Attending Clinician +[phone] Javi Mcpherson MD Attending Clinician +[phone] ANTOINETTE MCCULLOUGH Attending Clinician Unavailabl ALICE Lindo Attending Clinician Unavailable Tamie MCKAY, Lolita Larios Attending Clinician + [phone] Austin Salomon PA-C Attending Clinician + [phone] Eamon LOMELI, Erika Bergman Attending Clinician +[phone] Antoinette Mccullough MD Attending Clinician + [phone] Marcos Rodriguez MD Attending Clinician [phone] JANI RODRIGUEZ Attending Clinician Unavailable KATE SIERRA Attending Clinician Unavailab FARIHA Nesbitt Attending Clinician Unavail able FARIHA YOUNGBLOOD Attending Clinician Unavail able KASSY GUTIERREZ Attending Clinician Unavailab Kassy Lang DO Attending Clinician [phone] Isha Geller Attending Clinician +[phone] Boaz Delgado MD Attending Clinician +[phone] BOAZ DELGADO Attending Clinician Unavailable ZEYNEP MITCHELL Attending Clinician Unavailable Zeynep Madsen Attending Clinician +[phone] JUSTEN PATTON Attending Clinician Unavailable Bairon Meyers MD Attending Clinician + [phone] Justen Patton DO Attending Clinician [phone] DAMION HAMLIN Attending Clinician Unavailable Damion Hamlin MD Attending Clinician +[phone] ZEV FERNÁNDEZ Attending Clinician Unavailable Rasta Anne DO Attending Clinician + [phone] Panda Flanagan MD Attending Clinician [phone] PANDA FLANAGAN Attending Clinician Unavailable Only, Ang Db Test Attending Clinician Unavailannia Brown PA-C, Austin Attending Clinician [phone] AUSTIN BROWN Attending Clinician Unavailable SAYDA ZAFAR Attending Clinician Unavailable Sayda Bello Attending Clinician +[phone] UNKNOWN, ATTENDING Attending Clinician Unavailab Randy Orta MD Attending Clinician +[phone] BRANDON RIVERA Attending Clinician Unavailabl andrea Rivera MD, Brandon Attending Clinician +[phone] Unknown, Attending Attending Clinician Unavailab Sherry Del Toro MD Attending Clinician +[phone] SCARLET CUELLAR Attending Clinician Unavailable SELINA BUCKLEY Attending Clinician Unavailable CASSIUS ZULUAGA Attending Clinician Unavailable CAROLYN HERRERA Attending Clinician Unavailab bettye Vasquez, [facility] Dermatology Nurse Attending Clinician Unavailable aCrolyn Herrera MD Attending Clinician +[phone] Elvi Maya MD Attending Clinician + [phone] ELVI MAYA Attending Clinician Unavailable Radiology Attending Clinician Unavailable RADIOLOGY Attending Clinician Unavailable Lauri Natarajan Attending Clinician [phone] LAURI CURRY Attending Clinician Unavailable SIENNA RUFF Attending Clinician Unavailable Selina Arechiga Attending Clinician [phone] Visit/Fp, [facility] Nurse Attending Clinician Un available ABRAM LYNNE Attending Clinician Unavaila Abram Sanchez MD Attending Clinician +[phone] Herminio Isaac MD Attending Clinician [phone] Cristina Parra PA-C Attending Clinician +[phone] Nayeli MCKAY, Kala Renner Attending Clinician Clair vailable CRISTINA PARRA Attending Clinician Unavailable DASH MALCOLM Attending Clinician Unavailable Dash Dow S Attending Clinician [phone] Ondina Palacio MD Attending Clinician +[phone] ONDINA PALACIO Attending Clinician Unavailable Lab, [facility] Attending Clinician Unavailable Joey TRAN, Mili Cordova Attending Clinician + [phone] MILI VILLEGAS Attending Clinician Unavailab bettye Bustillo [employer]ITE COMM[employer]ICATIONS ENGINEER, Franny Attending Clinician [phone] Ultrasound, [facility] Attending Clinician Unavaila Darline Stone Attending Clinician Unavailannia e 1, [facility] Usg Room Attending Clinician Unavailrenetta Mcneil MD, Conrado Larios Attending Clinician [phone] [facility] Attending Clinician Unavailable Jaerd Bay MD Attending Clinician +[phone] JARED BAY Attending Clinician Unavailable Maximus Villavicencio DO Attending Clinician [phone] Fellow, [facility] Attending Clinician Un available Nette Cadet MD Attending Clinician +[phone] NETTE CADET Attending Clinician Unavailable NETTE CADET Attending Clinician Unavailable Juanjose Ross DO Attending Clinician +[phone] Matthew El MD Attending Clinician +[phone] MATTHEW EL Attending Clinician Unavailable Jean-Paul MCKAY, Glenna Attending Clinician UnavailTamika Ch MD, Gwendolyn Attending Clinician + [phone] EKTA SEPINOZA Admitting Clinician ONDINA Hernández Admitting Clinician Unavailable MICHAEL BETANCUR Admitting Clinician Unavaila TAYLOR House Admitting Clinician Unavailab ALICE Dalton Admitting Clinician Unavailable ANTOINETTE MCCULLOUGH Admitting Clinician UnavailAntoinette Lopez MD Admitting Clinician [phone] KATE SIERRA Admitting Clinician Unavailab JUSTEN Perez Admitting Clinician Unavailable Justen Patton DO Admitting Clinician [phone] DAMION HAMLIN Admitting Clinician Unavailable LAURI CURRY Admitting Clinician Unavailable ABRAM LYNNE Admitting Clinician Unavailrenetta Lynne MD, Abram Brooks Admitting Clinician + [phone] Ondina Palacio MD Admitting Clinician Payers Payer Name Policy Type Policy Number Effective Date Expirati on Date Source [facility] LISA SHEEHAN [id number] 2022 00:00:00 Problems Condition Name Condition Details Condition Category Status Onset Date Resolution Date Last Treatment Date Treating Clinician Comments Source 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 Disease Active 2022-07 0- 00:[facility]: [facility] Epigastric pain Epigastric pain Disease Active 9-26 00:00: 00 [facility] Loss of weight Loss of weight Disease Active 8- 00:00: 00 [facility] Nausea Nausea Disease Active 8- 00:00: 00 [facility] Abdominal pain, generalize d Abdominal pain, generalize d Disease Active 8- 00:00: 00 [facility] Atypical chest pain Atypical chest pain Disease Active 8- 00:00: 00 [facility] Essential hypertensi on Essential hypertensi on Disease Active 8- 00:00: 00 [facility] Dyslipidem ia Dyslipidem ia Disease Active 8- 00:00: 00 [facility] Elevated LFTs Elevated LFTs Disease Active 8- 00:00: 00 [facility] Weakness Weakness Disease Active 8 00:00: 00 [facility] 38 weeks gestation of 38 weeks gestation of Disease Active 8 00:00: 00 [facility] Multiparit y Multiparit y Disease Active 03-27 00:00: 00 [facility] 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 8 00:00: 00 [facility] Advanced maternal age in multigravi da, third trimester Advanced maternal age in multigravi da, third trimester Disease Active 03-27 00:00: 00 [facility] Abnormal glucose tolerance test (GTT) during , antepartum Abnormal glucose tolerance test (GTT) during , antepartum Disease Active 03-27 00:00: 00 [facility] Abnormal glucose tolerance test (GTT) during , antepartum Abnormal glucose tolerance test (GTT) during , antepartum Disease Active 03-27 00:00: 00 [facility] Urinary tract infection in mother during third trimester of Urinary tract infection in mother during third trimester of Disease Active 02-14 00:00: 00 [facility] Preexistin g hypertensi on complicati ng , antepartum Preexistin g hypertensi on complicati ng , antepartum Disease Active 02-14 00:00: 00 [facility] Rash Rash Disease Active 10-19 00:00: 00 [facility] Bullous disorder Bullous disorder Disease Active 10-19 00:00: 00 [facility] Irregular menstrual cycle Irregular menstrual cycle Disease Active 09-29 00:00: 00 [facility] Vaginitis and vulvovagin itis Vaginitis and vulvovagin itis Disease Active 09-29 00:00: 00 Overview: Formattin g of this note might be different from the original. ICD10 Diagnosis Term [facility] Need for prophylact ic vaccinatio n with combined diphtheria -tetanus-p ertussis (DTP) vaccine Need for prophylact ic vaccinatio n with combined diphtheria -tetanus-p ertussis (DTP) vaccine Disease Active 09-29 00:00: 00 [facility] Morbid obesity Morbid obesity Disease Active 09-29 00:00: 00 [facility] AN (acanthosi s nigricans) AN (acanthosi s nigricans) Disease Active 09-29 00:00: 00 [facility] Headache Headache Disease Active 09-29 00:00: 00 Overview: Formattin g of this note might be different from the original. ICD10 Diagnosis Term [facility] Allergies, Adverse Reactions, Alerts Allergy Name Allergy Type Status Severity Reaction(s) Onset Date Inactive Date Treating Clinician Comments Source NO KNOWN ALLERGIE S Drug Class Active [facility] Social History Social Habit Start Date Stop Date Quantity Comments Source Gender identity [facility] acute hospital Sexual orientation [facility] ASSERTION [facility] Alcohol intake 2023-11-26 00:00:00 2023-11-26 00:00:00 Ex-drinker (finding) [facility] History of Social function 2023-11-26 00:00:00 2023-11-26 00:00:00 [facility] Alcoholic beverage intake 2023-11-26 00:00:00 2023-11-26 00:00:00 Ex-drinker (finding) [facility] Tobacco use and exposure 2023-02-25 00:00:00 2023-02-25 00:00:00 Former smokeless tobacco user [facility] Exposure to SARS-CoV-2 (event) 2022-05-11 00:00:00 2022-05-21 13:28:00 Not sure [facility] History of tobacco use 2011-12-27 00:00:00 User of smokeless tobacco [facility] Sex assigned at 1980 00:00:00 1980 00:00:00 [facility] Smoking Status Start Date Stop Date Source Ex-smoker 2023-02-25 00:00:00 2023-02-25 00:00:00 [facility] Medications Ordered Medication Name Filled Medication Name Start Date Stop Date Current Medication? Ordering Clinician Indication Dosage Frequency Signature (SIG) Comments Components Source ergocalcife rol, vitamin d2, (VITAMIN D2) 1,250 mcg (50,000 unit) capsule 11-27 00:00: 00 Yes [id number] Take 1 capsule by mouth weekly. [facility] diphenhydrA MINE (BENADRYL) 25 mg capsule 11-25 00:00: 00 Yes [id number] 25mg Take 1 capsule by mouth every 6 (six) hours as needed for Allergies. [facility] fluticasone propionate 50 mcg/actuati on nasal spray 11-25 00:00: 00 Yes [id number] 1{spray } Use 1 [place] in each nostril in the morning. [facility] pantoprazol e 40 mg EC tablet 11-25 00:00: 00 Yes [id number] 40mg Take 1 tablet by mouth in the morning. [facility] lidocaine 5 % ointment 11-25 00:00: 00 Yes [id number] Apply to area(s) 2 (two) times daily. [facility] triamcinolo ne acetonide 0.1 % cream 11-25 00:00: 00 Yes [id number] Apply to area(s) 2 (two) times daily. [facility] pantoprazol e 40 mg EC tablet 10-09 00:00: 00 11-25 00:00 :00 No [id number] 40mg Take 1 tablet by mouth in the morning. [facility] fluticasone propionate 50 mcg/actuati on nasal spray 15 00:00: 00 11-25 00:00 :00 No [id number] 1{spray } Use 1 [place] in each nostril in the morning. [facility] ketorolac (TORADOL) injection 15 mg 08 22:15: 00 10-02 21:47 :00 No 15mg 15 mg, Slow IV Push, ONCE, 1 dose, On Fri10/03/23 at 1615, [facility] iopamidol (ISOVUE 370-500 mL) injection 85 mL 2022-07 02:45: 00 05-07 02:45 :00 No [id number] 85mL 85 mL, Intravenou s, ONCE, 1 dose, On Fri05/06/23 at 2145, Routine [facility] ondansetron (ZOFRAN (PF)) injection 4 mg 2022-07 0-11 01:45: 00 05-07 02:54 :00 No 4mg 4 mg, Slow IV Push, ONCE, 1 dose, On Fri05/06/23 at 2045, [facility] pantoprazol e 40 mg EC tablet 2022-07 0 00:00: 00 07-31 05:59 :00 No 40mg Take 1 tablet by mouth in the morning for 90 days. [facility] pantoprazol e (PROTONIX) EC tablet 40 mg 2022-07 0 14:00: 00 Yes 40mg 40 mg, Oral, DAILY, First dose on Fri04/30/23 at 0900, Until Discontinu ed, Routine [facility] gabapentin (NEURONTIN) capsule 300 mg 2022-07 0 01:00: 00 Yes 300mg 300 mg, Oral, TID, First dose on Fri04/29/23 at 2000, Until Discontinu ed, Routine [facility] gabapentin 300 mg capsule 2022-07 0- 00:00: 00 10-09 00:00 :00 No [id number] 300mg Take 1 capsule by mouth in the morning and 1 capsule at noon and 1 capsule in the evening. [facility] ondansetron 4 mg tablet 2022-07 0 00:00: 00 05-15 04:59 :00 No [id number] 4mg Take 1 tablet by mouth every 8 (eight) hours as needed for Nausea and Vomiting (N/V) for up to 14 days. [facility] dicyclomine 20 mg tablet 2022-07 0 00:00: 05-15 04:59 :00 No [id number] 20mg Take 1 tablet by mouth 4 (four) times daily as needed for Abdominal pain for up to 14 days. [facility] methocarbam oL 500 mg tablet 2022-07 0 00:00: 00 05-05 04:59 :00 No [id number] 500mg Take 1 tablet by mouth 4 (four) times daily for 4 days. [facility] Pantoprazol e 40 mg delayed-rel ease suspension 2022-07 0-04 00:00: 00 05-01 00:00 :00 No [id number] 40mg Take 40 mg by mouth in the morning and 40 mg in the evening. Do all this for 38 days. [facility] methocarbam oL (ROBAXIN) tablet 500 mg 2022-07 0 21:00: 00 Yes 500mg 500 mg, Oral, QID, First dose on Fri04/29/23 at 1600, Until Discontinu ed, Routine [facility] piperacilli n-tazobacta m (ZOSYN) 3.375 g in NaCl 0.9% (NS) 100 mL MINI-BAG 2022-07 07:15: 00 05-02 07:14 :00 No 3.375g 3.375 g, IV Piggyback, Q8H ABX, 9 doses, First dose on Fri04/29/23 at 0215, Last dose on Fri05/01/23 at 1815, Administer over 4 Hours, 100 mL
Reas on for Anti-Infec tive: Empiric Therapy for Suspected Infection< br>Empiric Therapy Site: Skin / Soft tissue
Duration of therapy: 72 hours [facility] piperacilli n-tazobacta m (ZOSYN) 3.375 g in NaCl 0.9% (NS) 100 mL MINI-BAG 2022-07 0 23:30: 00 04-29 00:00 :00 No 3.375g 3.375 g, IV Piggyback, ONCE, 1 dose, On Fri04/28/23 at 1830, Administer over 30 Minutes, 100 mL
Reas on for Anti-Infec tive: Empiric Therapy for Suspected Infection< br>Empiric Therapy Site: Skin / Soft tissue
Duration of therapy: 72 hours [facility] ondansetron (ZOFRAN) tablet 4 mg 04-25 20:13: 34 Yes 4mg 4 mg, Oral, Q8HPRN, Starting on Fri04/25/23 at 1513, Until Discontinu ed, Routine, Nausea and Vomiting (N/V) [facility] sucralfate (CARAFATE) tablet 1 g 04-24 16:30: 00 Yes 1g 1 g, Oral, AC+HS, First dose on Fri04/24/23 at 1130, Until Discontinu ed, Routine [facility] sucralfate (CARAFATE) 100 mg/mL suspension 1,000 mg 04-23 02:00: 00 04-24 13:09 :41 No 1g 1,000 mg (1 g), Oral, AC+HS, First dose on Fri04/22/23 at 2100, Until Discontinu ed, Routine [facility] iopamidol (ISOVUE 370-500 mL) injection 125 mL 04-23 01:13: 00 04-23 01:14 :00 No [id number] 125mL 125 mL, Intravenou s, ONCE, 1 dose, On Fri04/22/23 at 2030, Routine [facility] pantoprazol e (PROTONIX) injection 40 mg 04-23 01:00: 00 Yes 40mg 40 mg, Slow IV Push, Q12H, First dose (after last modificati on) on Fri04/22/23 at 2000, Until Discontinu ed [facility] maalox:diph enhydrAMINE :lidocaine 2 % viscous 1:1:1 ([facility]) oral suspension 15 mL 04-23 01:00: 00 Yes 15mL 15 mL, Oral, Q12H, First dose (after last reorder) on Fri04/22/23 at 2000, Until Discontinu ed, Routine [facility] maalox:diph enhydrAMINE :lidocaine 2 % viscous 1:1:1 ([facility]) oral suspension 15 mL 04-22 19:29: 24 Yes 15mL 15 mL, Oral, QDAILYPRN, Starting on Fri04/22/23 at 1429, Until Discontinu ed, Routine, abd pain [facility] acetaminoph en (TYLENOL) tablet 650 mg 04-22 18:45: 00 Yes 650mg 650 mg, Oral, Q6H, First dose (after last modificati on) on Fri04/22/23 at 1345, Until Discontinu ed, Routine [facility] maalox:diph enhydrAMINE :lidocaine 2 % viscous 1:1:1 ([facility]) oral suspension 15 mL 04-22 11:15: 00 04-22 11:33 :00 No 15mL 15 mL, Oral, ONCE, 1 dose, On Fri04/22/23 at 0630, Routine [facility] HYDROcodone -acetaminop hen (NORCO 5) 5-325 mg tablet 1 tablet 04-22 08:50: 53 Yes 1{tbl} 1 tablet, Oral, Q6HPRN, Starting on Fri04/22/23 at 0350, Until Discontinu ed, Routine, Pain (scale 7-10) [facility] enoxaparin (LOVENOX) injection 40 mg 04-22 08:45: 00 Yes 40mg 40 mg, Subcutaneo us, Q24H, First dose on Fri04/22/23 at 0345, Until Discontinu ed, Routine [facility] pantoprazol e (PROTONIX) injection 40 mg 04-22 08:00: 00 04-22 16:04 :07 No 40mg 40 mg, Slow IV Push, Q24H, 3 doses, First dose on Fri04/22/23 at 0300, Last dose on Fri04/24/23 at 0300 [facility] maalox:diph enhydrAMINE :lidocaine 2 % viscous 1:1:1 ([facility] BL[facility]) oral suspension 15 mL 04-22 06:00: 00 04-22 06:09 :00 No 15mL 15 mL, Oral, ONCE, 1 dose, On Fri04/22/23 at 0100, Routine [facility] maalox:diph enhydrAMINE :lidocaine 2 % viscous 1:1:1 ([facility] BL[facility]) oral suspension 15 mL 04-21 23:45: 00 04-22 00:39 :00 No 15mL 15 mL, Oral, ONCE, 1 dose, On Fri04/21/23 at 1845, [facility] NaCl 0.9% (NS) bolus infusion 1,000 mL 04-21 23:30: 00 04-22 01:59 :00 No 1000mL at 999 mL/hr, 1,000 mL, IV Infusion, ONCE, 1 dose, On Fri04/21/23 at 1830, [facility] Pantoprazol e 40 mg delayed-rel ease suspension 03-13 14:52: 41 03-13 00:00 :00 No 40mg Take 40 mg by mouth in the morning. [facility] peg-electro lyte soln 236-22.74-6 .74 -5.86 gram solution 03-13 00:00: 00 10-09 00:00 :00 No [id number] Take as directed before colonoscop y [facility] Pantoprazol e 40 mg delayed-rel ease suspension 03-13 00:00: 00 04-30 00:00 :00 No [id number] 40mg Take 40 mg by mouth in the morning and 40 mg in the evening. [facility] maalox:diph enhydrAMINE :lidocaine 2 % viscous 1:1:1 ([facility]) oral suspension 15 mL 03-12 01:30: 00 03-12 01:35 :00 No 15mL 15 mL, Oral, ONCE, 1 dose, On Fri03/11/23 at 2030, Routine [facility] dicyclomine (BENTYL) tablet 20 mg 03-12 01:30: 00 03-12 01:34 :00 No 20mg 20 mg, Oral, ONCE, 1 dose, On Fri03/11/23 at 2030, [facility] NaCl 0.9% (NS) bolus infusion 1,000 mL 03-11 23:45: 00 03-12 01:58 :00 No 1000mL at 999 mL/hr, 1,000 mL, IV Infusion, ONCE, 1 dose, On Fri03/11/23 at 1845, [facility] ondansetron (ZOFRAN (PF)) injection 4 mg 03-11 23:00: 00 03-12 00:32 :00 No 4mg 4 mg, Slow IV Push, ONCE, 1 dose, On Fri03/11/23 at 1800, [facility] ondansetron 4 mg disintegrat ing tablet 03-11 00:00: 00 10-09 00:00 :00 No [id number] 4mg Take 1 tablet by mouth every 8 (eight) hours as needed for Nausea and Vomiting (N/V). [facility] dicyclomine 20 mg tablet 03-11 00:00: 00 04-30 00:00 :00 No [id number] 20mg Take 1 tablet by mouth 4 (four) times daily as needed for Abdominal pain. [facility] pantoprazol e (PROTONIX) 40 mg EC tablet 02-27 00:00: 00 02-26 00:00 :00 No [id number] 40mg Take 1 tablet by mouth in the morning for 30 days. [facility] aspirin 81 mg chewable tablet 02-27 00:00: 00 02-26 00:00 :00 No [id number] 81mg Take 1 tablet by mouth in the morning for 30 days. [facility] maalox:diph enhydrAMINE :lidocaine 2 % viscous 1:1:1 ([facility]) oral suspension 15 mL 02-26 17:30: 00 02-26 17:41 :00 No 15mL 15 mL, Oral, ONCE, 1 dose, On Fri02/26/23 at 1230, Rout[facility] cefTRIAXone (ROCEPHIN) 1,000 mg in NaCl 0.9% (NS) 100 mL MINI-BAG 02-26 14:45: 00 02-26 16:14 :00 No 1000mg 1,000 mg, IV Piggyback, Q24H ABX, 1 dose, First dose on Fri02/26/23 at 0945, Administer over 30 Minutes, 100 mL
Reas on for Anti-Infec tive: Empiric Therapy for Suspected Infection< br>Empiric Therapy Site: Urine
D uration of therapy: 5 days [facility] pantoprazol e (PROTONIX) EC tablet 40 mg 02-26 14:00: 00 Yes 40mg 40 mg, Oral, DAILY, First dose on Fri02/26/23 at 0900, Until Discontinu ed, Routine [facility] aspirin chewable tablet 81 mg 02-26 14:00: 00 Yes 81mg 81 mg, Oral, DAILY, First dose on Fri02/26/23 at 0900, Until Discontinu ed, Routine [facility] enoxaparin (LOVENOX) injection 40 mg 02-26 14:00: 00 Yes 40mg 40 mg, Subcutaneo us, DAILY, First dose on Fri02/26/23 at 0900, Until Discontinu ed, Routine [facility] dicyclomine (BENTYL) tablet 20 mg 02-26 04:22: 14 Yes 20mg 20 mg, Oral, Q6HPRN, Starting on Fri02/25/23 at 2322, Until Discontinu ed, Routine, Abdominal pain [facility] sulfamethox azole-trime thoprim (BACTRIM DS) 800-160 mg per tablet 02-26 00:00: 00 02-26 00:00 :00 No [id number] 1{tbl} Take 1 tablet by mouth in the morning and 1 tablet in the evening. Do all this for 3 days. [facility] atorvastati n 20 mg tablet 02-26 00:00: 02-26 00:00 :00 No [id number] 20mg Take 1 tablet by mouth at bedtime for 30 days. [facility] sucralfate 1 gram tablet 02-26 00:00: 00 02-26 00:00 :00 No [id number] 1g Take 1 tablet by mouth before meals and at bedtime for 20 days. [facility] aspirin tablet 325 mg 02-25 23:00: 00 02-25 22:02 :00 No 325mg 325 mg, Oral, ONCE, 1 dose, On Fri02/25/23 at 1800, [facility] ondansetron (ZOFRAN (PF)) injection 4 mg 02-25 22:57: 52 Yes 4mg 4 mg, Slow IV Push, Q6HPRN, Starting on Fri02/25/23 at 1757, Until Discontinu ed, Routine, Nausea and Vomiting (N/V) [facility] acetaminoph en (TYLENOL) tablet 650 mg 02-25 22:57: 45 Yes 650mg 650 mg, Oral, Q6HPRN, Starting on Fri02/25/23 at 1757, Until Discontinu ed, Routine, Pain (scale 1-3) [facility] NaCl 0.9% (NS) bolus infusion 1,000 mL 02-25 21:45: 00 02-25 21:51 :00 No 1000mL at 999 mL/hr, 1,000 mL, IV Infusion, ONCE, 1 dose, On Fri02/25/23 at 1645, STAT [facility] nitroglycer in (NITROL) 2 % ointment 0.5 Inch 02-25 21:45: 00 02-25 21:51 :00 No .5[in_u s] 0.5 Inch, Transderma l (Apply To Skin), ONCE, 1 dose, On Fri02/25/23 at 1645, [facility] iopamidol (ISOVUE 370-500 mL) injection 100 mL 02-25 20:49: 00 02-25 20:48 :00 No [id number] 100mL 100 mL, Intravenou s, ONCE, 1 dose, On Fri02/25/23 at 1615, [facility] NaCl 0.9% (NS) injection 5 mL 02-25 20:15: 02 Yes 5mL 5 mL, Slow IV Push, PRN - SEE INSTRUCTIO NS, Starting on Fri02/25/23 at 1515, Until Discontinu ed, 10 mL [facility] maalox:diph enhydrAMINE :lidocaine 2 % viscous 1:1:1 ([facility]) oral suspension 15 mL 02-03 04:15: 00 02-03 04:27 :00 No 15mL 15 mL, Oral, ONCE, 1 dose, On Fri02/02/23 at 2315, Routine [facility] iopamidol (ISOVUE 370-500 mL) injection 100 mL 02-03 02:45: 00 02-03 01:46 :00 No [id number] 100mL 100 mL, Intravenou s, ONCE, 1 dose, On Fri02/02/23 at 2145, Routine [facility] ketorolac (TORADOL) injection 30 mg 02-03 02:15: 00 02-03 01:29 :00 No 30mg 30 mg, Slow IV Push, ONCE, 1 dose, On Fri02/02/23 at 2115, Routine [facility] maalox:diph enhydrAMINE :lidocaine 2 % viscous 1:1:1 ([facility]) oral suspension 15 mL 02-03 01:30: 00 02-03 01:29 :00 No 15mL 15 mL, Oral, ONCE, 1 dose, On Fri02/02/23 at 2030, Routine [facility] pantoprazol e (PROTONIX) 40 mg EC tablet 02-02 00:00: 00 Yes [id number] 40mg Take 1 tablet by mouth in the morning. [facility] dicyclomine 20 mg tablet 02-02 00:00: 00 Yes [id number] 20mg Take 1 tablet by mouth every 6 (six) hours as needed for Abdominal pain. [facility] ondansetron (ZOFRAN) 4 mg tablet 02-02 00:00: 00 Yes [id number] 4mg Take 1 tablet by mouth every 8 (eight) hours as needed for Nausea and Vomiting (N/V). [facility] albuterol 90 mcg/actuati on inhaler 2021-07 025 00:00: 00 02-25 00:00 :00 No [id number] 2{puff} Inhale 2 Puffs every 4 (four) hours as needed for Wheezing or Shortness of Breath. [facility] benzonatate 100 mg capsule 2021-07 00:00: 02-25 00:00 :00 No [id number] 100mg Take 1 capsule by mouth 3 (three) times daily as needed for Cough. [facility] dextrometho rphan-guaif enesin 10-100 mg/5 mL solution 04-23 00:00: 00 05-01 04:59 :00 No [id number] 5mL Take 5 mL by mouth every 6 (six) hours as needed for Cough for up to 7 days. [facility] fluticasone propionate 50 mcg/actuati on nasal spray 04-23 00:00: 00 05-01 04:59 :00 No [id number] 1{spray } Use 1 [place] in each nostril in the morning for 7 days. [facility] triamcinolo ne acetonide 0.1 % ointment 12-13 00:00: 00 02-25 00:00 :00 No [id number] Apply to area(s) 2 (two) times daily. [facility] aug betamethaso ne dipropionat e 0.05 % cream 12-13 00:00: 00 02-25 00:00 :00 No [id number] Apply to area(s) 2 (two) times daily. [facility] benzonatate (TESSALON PERLES) 100 mg capsule 08-23 00:00: 00 05-21 00:00 :00 No [id number] 100mg Take 1 capsule by mouth every 8 (eight) hours as needed for Cough. [facility] pantoprazol e 40 mg EC tablet 08-21 00:00: 00 02-25 00:00 :00 No [id number] 40mg Take 1 tablet by mouth 2 (two) times daily. [facility] aug betamethaso ne dipropionat e 0.05 % cream 1-11 00:00: 00 02-25 00:00 :00 No [id number] Apply to area(s) 2 (two) times daily. Avoid face, armpits, and groin. [facility] triamcinolo ne acetonide 0.1 % ointment 1- 00:00: 00 02-25 00:00 :00 No [id number] Apply to area(s) 2 (two) times daily. As needed for rash. Avoid face, armpits, and groin. [facility] hydroCHLORO thiazide 25 mg tablet 2020-07 2- 00:00: 00 02-25 00:00 :00 No [id number] 12.5mg Take 0.5 tablets by mouth daily. [facility] naproxen 500 mg tablet 2020-07 1- 00:00: 00 02-25 00:00 :00 No [id number] 500mg Take 1 tablet by mouth 2 (two) times daily with meals. [facility] hydrOXYzine 25 mg tablet 2020-07 1- 00:00: 00 02-25 00:00 :00 No [id number] 25mg Take 1 tablet by mouth 2 (two) times daily as needed for Anxiety. [facility] DULoxetine 20 mg capsule 2020-07 1- 00:00: 00 02-25 00:00 :00 No [id number] 20mg Take 1 capsule by mouth daily. [facility] hydroCHLORO thiazide 25 mg tablet 2020-07 0-29 00:00: 00 07-26 00:00 :00 No [id number] 12.5mg Take 0.5 tablets by mouth daily. [facility] hydrOXYzine 25 mg tablet 2020-07 0-23 00:00: 00 02-25 00:00 :00 No [id number] 25mg Take 1 tablet by mouth every 6 (six) hours as needed for Anxiety. [facility] fluconazole (DIFLUCAN) 150 mg tablet 9-27 00:00: 00 08-21 00:00 :00 No [id number] Take 1 tablet by mouth every 3 days, for 3 doses [facility] aug betamethaso ne dipropionat e 0.05 % cream 04-23 00:00: 00 08-06 00:00 :00 No [id number] Apply to area(s) 2 (two) times daily. Avoid face, armpits, and groin. [facility] triamcinolo ne acetonide 0.1 % ointment 04-23 00:00: 00 08-06 00:00 :00 No [id number] Apply to area(s) 2 (two) times daily. As needed for rash. Avoid face, armpits, and groin. [facility] pantoprazol e 40 mg EC tablet 04-06 00:00: 00 08-21 00:00 :00 No [id number] 40mg Take 1 tablet by mouth daily. [facility] vitamin w/FA tablet 03-29 00:00: 00 Yes [id number] 1{tbl} Take 1 tablet by mouth daily. [facility] docusate calcium 240 mg capsule 03-29 00:00: 00 02-25 00:00 :00 No [id number] 240mg Take 1 capsule by mouth once daily as needed for Constipati on. [facility] ferrous sulfate 325 mg (65 mg iron) tablet 03-29 00:00: 02-25 00:00 :00 No [id number] 325mg Take 1 tablet by mouth 2 (two) times daily. [facility] ibuprofen 600 mg tablet 03-29 00:00: 02-25 00:00 :00 No [id number] 600mg Take 1 tablet by mouth every 6 (six) hours as needed (Pain). Take with food or milk. [facility] vitamin w/FA tablet 03-29 00:00: 00 02-25 00:00 :00 No [id number] 1{tbl} Take 1 tablet by mouth daily. [facility] pantoprazol e (PROTONIX) 40 mg EC tablet 8-04 00:00: 00 06-06 00:00 :00 No [id number] 40mg Take 1 tablet by mouth daily. [facility] Immunizations Ordered Immunization Name Filled Immunization Name Date Status Comments Source Influenza Virus Vaccine Quad IM, Preserv and ABX Free 6 MO-64 YRS 2021-05-25 00:00:00 Completed [facility] Influenza Virus Vaccine Quad IM, Preserv and ABX Free 6 MO-64 YRS 2021-05-25 00:00:00 Completed [facility] Influenza Virus Vaccine Quad IM, Preserv and ABX Free 6 MO-64 YRS 2021-05-25 00:00:00 Completed [facility] Influenza Virus Vaccine Quad IM, Preserv and ABX Free 6 MO-64 YRS 2021-05-25 00:00:00 Completed [facility] Influenza Virus Vaccine Quad IM, Preserv and ABX Free 6 MO-64 YRS 2021-05-25 00:00:00 Completed [facility] Influenza Virus Vaccine Quad IM, Preserv and ABX Free 6 MO-64 YRS 2021-05-25 00:00:00 Completed [facility] Influenza Virus Vaccine Quad IM, Preserv and ABX Free 6 MO-64 YRS 2021-05-25 00:00:00 Completed [facility] Influenza Virus Vaccine Quad IM, Preserv and ABX Free 6 MO-64 YRS 2021-05-25 00:00:00 Completed [facility] Influenza Virus Vaccine Quad IM, Preserv and ABX Free 6 MO-64 YRS 2021-05-25 00:00:00 Completed [facility] Influenza Virus Vaccine Quad IM, Preserv and ABX Free 6 MO-64 YRS 2021-05-25 00:00:00 Completed [facility] Influenza Virus Vaccine Quad IM, Preserv and ABX Free 6 MO-64 YRS 2021-05-25 00:00:00 Completed [facility] Influenza Virus Vaccine Quad IM, Preserv and ABX Free 6 MO-64 YRS 2021-05-25 00:00:00 Completed [facility] Influenza Virus Vaccine Quad IM, Preserv and ABX Free 6 MO-64 YRS 2021-05-25 00:00:00 Completed [facility] Influenza Virus Vaccine Quad IM, Preserv and ABX Free 6 MO-64 YRS 2021-05-25 00:00:00 Completed [facility] Influenza Virus Vaccine Quad IM, Preserv and ABX Free 6 MO-64 YRS 2021-05-25 00:00:00 Completed [facility] Influenza Virus Vaccine Quad IM, Preserv and ABX Free 6 MO-64 YRS 2021-05-25 00:00:00 Completed [facility] Influenza Virus Vaccine Quad IM, Preserv and ABX Free 6 MO-64 YRS 2021-05-25 00:00:00 Completed [facility] Influenza Virus Vaccine Quad IM, Preserv and ABX Free 6 MO-64 YRS 2021-05-25 00:00:00 Completed [facility] Influenza Virus Vaccine Quad IM, Preserv and ABX Free 6 MO-64 YRS 2021-05-25 00:00:00 Completed [facility] Influenza Virus Vaccine Quad IM, Preserv and ABX Free 6 MO-64 YRS 2021-05-25 00:00:00 Completed [facility] Influenza Virus Vaccine Quad IM, Preserv and ABX Free 6 MO-64 YRS (FLUCELVAX) 2021-05-25 00:00:00 Completed [facility] TDAP 2021-01-17 00:00:00 Completed [facility] TDAP 2021-01-17 00:00:00 Completed [facility] TDAP 2021-01-17 00:00:00 Completed [facility] TDAP 2021-01-17 00:00:00 Completed [facility] TDAP 2021-01-17 00:00:00 Completed [facility] TDAP 2021-01-17 00:00:00 Completed [facility] TDAP 2021-01-17 00:00:00 Completed [facility] TDAP 2021-01-17 00:00:00 Completed [facility] TDAP 2021-01-17 00:00:00 Completed [facility] TDAP 2021-01-17 00:00:00 Completed [facility] TDAP 2021-01-17 00:00:00 Completed [facility] TDAP 2021-01-17 00:00:00 Completed [facility] TDAP 2021-01-17 00:00:00 Completed [facility] TDAP 2021-01-17 00:00:00 Completed [facility] TDAP 2021-01-17 00:00:00 Completed [facility] TDAP 2021-01-17 00:00:00 Completed [facility] TDAP 2021-01-17 00:00:00 Completed [facility] TDAP 2021-01-17 00:00:00 Completed [facility] TDAP 2021-01-17 00:00:00 Completed [facility] TDAP 2021-01-17 00:00:00 Completed [facility] TDAP 2021-01-17 00:00:00 Completed [facility] TDAP 2012-09-29 00:00:00 Completed [facility] TDAP 2012-09-29 00:00:00 Completed [facility] TDAP 2012-09-29 00:00:00 Completed [facility] TDAP 2012-09-29 00:00:00 Completed [facility] TDAP 2012-09-29 00:00:00 Completed [facility] TDAP 2012-09-29 00:00:00 Completed [facility] TDAP 2012-09-29 00:00:00 Completed [facility] TDAP 2012-09-29 00:00:00 Completed [facility] TDAP 2012-09-29 00:00:00 Completed [facility] TDAP 2012-09-29 00:00:00 Completed [facility] TDAP 2012-09-29 00:00:00 Completed [facility] TDAP 2012-09-29 00:00:00 Completed [facility] TDAP 2012-09-29 00:00:00 Completed [facility] TDAP 2012-09-29 00:00:00 Completed [facility] TDAP 2012-09-29 00:00:00 Completed [facility] TDAP 2012-09-29 00:00:00 Completed [facility] TDAP 2012-09-29 00:00:00 Completed [facility] TDAP 2012-09-29 00:00:00 Completed [facility] TDAP 2012-09-29 00:00:00 Completed [facility] TDAP 2012-09-29 00:00:00 Completed [facility] TDAP 2012-09-29 00:00:00 Completed [facility] Td 1994-07-28 00:00:00 Completed [facility] Td 1994-07-28 00:00:00 Completed [facility] Td 1994-07-28 00:00:00 Completed [facility] Td 1994-07-28 00:00:00 Completed [facility] Td 1994-07-28 00:00:00 Completed [facility] Td 1994-07-28 00:00:00 Completed [facility] Td 1994-07-28 00:00:00 Completed [facility] Td 1994-07-28 00:00:00 Completed [facility] Td 1994-07-28 00:00:00 Completed [facility] Td 1994-07-28 00:00:00 Completed [facility] TD, NOS 1994-07-28 00:00:00 Completed [facility] TD, NOS 1994-07-28 00:00:00 Completed [facility] TD, NOS 1994-07-28 00:00:00 Completed [facility] TD, NOS 1994-07-28 00:00:00 Completed [facility] TD, NOS 1994-07-28 00:00:00 Completed [facility] TD, NOS 1994-07-28 00:00:00 Completed [facility] TD, NOS 1994-07-28 00:00:00 Completed [facility] TD, NOS 1994-07-28 00:00:00 Completed [facility] TD, NOS 1994-07-28 00:00:00 Completed [facility] TD, NOS 1994-07-28 00:00:00 Completed [facility] TD, NOS 1994-07-28 00:00:00 Completed [facility] TD, NOS Unknown Completed [facility] TDAP Unknown Completed [facility] TDAP Unknown Completed [facility] Influenza Virus Vaccine Quad IM, Preserv and ABX Free 6 MO-64 YRS (FLUCELVAX) Unknown Completed [facility] TD, NOS Unknown Completed [facility] TDAP Unknown Completed [facility] TDAP Unknown Completed [facility] Influenza Virus Vaccine Quad IM, Preserv and ABX Free 6 MO-64 YRS (FLUCELVAX) Unknown Completed [facility] TD, NOS Unknown Completed [facility] TDAP Unknown Completed [facility] TDAP Unknown Completed [facility] Influenza Virus Vaccine Quad IM, Preserv and ABX Free 6 MO-64 YRS (FLUCELVAX) Unknown Completed [facility] TD, NOS Unknown Completed [facility] TDAP Unknown Completed [facility] TDAP Unknown Completed [facility] Influenza Virus Vaccine Quad IM, Preserv and ABX Free 6 MO-64 YRS (FLUCELVAX) Unknown Completed [facility] TD, NOS Unknown Completed [facility] TDAP Unknown Completed [facility] TDAP Unknown Completed [facility] TD, NOS Unknown Completed [facility] TDAP Unknown Completed [facility] TDAP Unknown Completed [facility] TD, NOS Unknown Completed [facility] TDAP Unknown Completed [facility] TDAP Unknown Completed [facility] Influenza Virus Vaccine Quad IM, Preserv and ABX Free 6 MO-64 YRS (FLUCELVAX) Unknown Completed [facility] TD, NOS Unknown Completed [facility] TDAP Unknown Completed [facility] TDAP Unknown Completed [facility] Influenza Virus Vaccine Quad IM, Preserv and ABX Free 6 MO-64 YRS (FLUCELVAX) Unknown Completed [facility] TD, NOS Unknown Completed [facility] TDAP Unknown Completed [facility] TDAP Unknown Completed [facility] Influenza Virus Vaccine Quad IM, Preserv and ABX Free 6 MO-64 YRS (FLUCELVAX) Unknown Completed [facility] TD, NOS Unknown Completed [facility] TDAP Unknown Completed [facility] TDAP Unknown Completed [facility] Influenza Virus Vaccine Quad IM, Preserv and ABX Free 6 MO-64 YRS (FLUCELVAX) Unknown Completed [facility] TD, NOS Unknown Completed [facility] TDAP Unknown Completed [facility] TDAP Unknown Completed [facility] Influenza Virus Vaccine Quad IM, Preserv and ABX Free 6 MO-64 YRS (FLUCELVAX) Unknown Completed [facility] TD, NOS Unknown Completed [facility] TDAP Unknown Completed [facility] TDAP Unknown Completed [facility] Influenza Virus Vaccine Quad IM, Preserv and ABX Free 6 MO-64 YRS (FLUCELVAX) Unknown Completed [facility] TD, NOS Unknown Completed [facility] TDAP Unknown Completed [facility] TDAP Unknown Completed [facility] Influenza Virus Vaccine Quad IM, Preserv and ABX Free 6 MO-64 YRS (FLUCELVAX) Unknown Completed [facility] TD, NOS Unknown Completed [facility] TDAP Unknown Completed [facility] TDAP Unknown Completed [facility] Influenza Virus Vaccine Quad IM, Preserv and ABX Free 6 MO-64 YRS (FLUCELVAX) Unknown Completed [facility] TD, NOS Unknown Completed [facility] TDAP Unknown Completed [facility] TDAP Unknown Completed [facility] Influenza Virus Vaccine Quad IM, Preserv and ABX Free 6 MO-64 YRS (FLUCELVAX) Unknown Completed [facility] TD, NOS Unknown Completed [facility] TDAP Unknown Completed [facility] TDAP Unknown Completed [facility] Influenza Virus Vaccine Quad IM, Preserv and ABX Free 6 MO-64 YRS (FLUCELVAX) Unknown Completed [facility] TD, NOS Unknown Completed [facility] TDAP Unknown Completed [facility] TDAP Unknown Completed [facility] Influenza Virus Vaccine Quad IM, Preserv and ABX Free 6 MO-64 YRS (FLUCELVAX) Unknown Completed [facility] TD, NOS Unknown Completed [facility] TDAP Unknown Completed [facility] TDAP Unknown Completed [facility] Influenza Virus Vaccine Quad IM, Preserv and ABX Free 6 MO-64 YRS (FLUCELVAX) Unknown Completed [facility] TD, NOS Unknown Completed [facility] TDAP Unknown Completed [facility] TDAP Unknown Completed [facility] Influenza Virus Vaccine Quad IM, Preserv and ABX Free 6 MO-64 YRS (FLUCELVAX) Unknown Completed [facility] TD, NOS Unknown Completed [facility] TDAP Unknown Completed [facility] TDAP Unknown Completed [facility] Influenza Virus Vaccine Quad IM, Preserv and ABX Free 6 MO-64 YRS (FLUCELVAX) Unknown Completed [facility] TD, NOS Unknown Completed [facility] TDAP Unknown Completed [facility] TDAP Unknown Completed [facility] Influenza Virus Vaccine Quad IM, Preserv and ABX Free 6 MO-64 YRS (FLUCELVAX) Unknown Completed [facility] TD, NOS Unknown Completed [facility] TDAP Unknown Completed [facility] TDAP Unknown Completed [facility] Influenza Virus Vaccine Quad IM, Preserv and ABX Free 6 MO-64 YRS (FLUCELVAX) Unknown Completed [facility] TD, NOS Unknown Completed [facility] TDAP Unknown Completed [facility] TDAP Unknown Completed [facility] Influenza Virus Vaccine Quad IM, Preserv and ABX Free 6 MO-64 YRS (FLUCELVAX) Unknown Completed [facility] TD, NOS Unknown Completed [facility] TDAP Unknown Completed [facility] TDAP Unknown Completed [facility] Influenza Virus Vaccine Quad IM, Preserv and ABX Free 6 MO-64 YRS (FLUCELVAX) Unknown Completed [facility] TD, NOS Unknown Completed [facility] TDAP Unknown Completed [facility] TDAP Unknown Completed [facility] Influenza Virus Vaccine Quad IM, Preserv and ABX Free 6 MO-64 YRS (FLUCELVAX) Unknown Completed [facility] TD, NOS Unknown Completed [facility] TDAP Unknown Completed [facility] TDAP Unknown Completed [facility] Influenza Virus Vaccine Quad IM, Preserv and ABX Free 6 MO-64 YRS (FLUCELVAX) Unknown Completed [facility] TD, NOS Unknown Completed [facility] TDAP Unknown Completed [facility] TDAP Unknown Completed [facility] Influenza Virus Vaccine Quad IM, Preserv and ABX Free 6 MO-64 YRS (FLUCELVAX) Unknown Completed [facility] TD, NOS Unknown Completed [facility] TDAP Unknown Completed [facility] TDAP Unknown Completed [facility] Influenza Virus Vaccine Quad IM, Preserv and ABX Free 6 MO-64 YRS (FLUCELVAX) Unknown Completed [facility] TD, NOS Unknown Completed [facility] TDAP Unknown Completed [facility] TDAP Unknown Completed [facility] Influenza Virus Vaccine Quad IM, Preserv and ABX Free 6 MO-64 YRS (FLUCELVAX) Unknown Completed [facility] Vital Signs Vital Name Observation Time Observation Value Comments S ource Systolic blood pressure 2023-11-26 17:51:00 143 mm[Hg] [facility] Diastolic blood pressure 2023-11-26 17:51:00 99 mm[Hg] [facility] Heart rate 2023-11-26 17:47:00 95 /min [facility] Body temperature 2023-11-26 17:47:00 36.44 Dinorah [facility] Respiratory rate 2023-11-26 17:47:00 18 /min [facility] Body height 2023-11-26 17:47:00 162.6 cm [facility] Body weight 2023-11-26 17:47:00 157.171 kg [facility] BMI 2023-11-26 17:47:00 59.48 kg/m2 [facility] Oxygen saturation in Arterial blood by Pulse oximetry 2023-11-26 17:47:00 97 /min [facility] Systolic blood pressure 2023-10-10 19:40:00 113 mm[Hg] [facility] Diastolic blood pressure 2023-10-10 19:40:00 80 mm[Hg] [facility] Heart rate 2023-10-10 19:34:00 94 /min [facility] Body temperature 2023-10-10 19:34:00 35.94 Dionrah [facility] Respiratory rate 2023-10-10 19:34:00 18 /min [facility] Body height 2023-10-10 19:34:00 165.1 cm [facility] Body weight 2023-10-10 19:34:00 155.765 kg [facility] BMI 2023-10-10 19:34:00 57.14 kg/m2 [facility] Oxygen saturation in Arterial blood by Pulse oximetry 2023-10-10 19:34:00 96 /min [facility] Systolic blood pressure 2023-10-04 00:00:00 159 mm[Hg] [facility] Diastolic blood pressure 2023-10-04 00:00:00 98 mm[Hg] [facility] Heart rate 2023-10-04 00:00:00 88 /min [facility] Respiratory rate 2023-10-04 00:00:00 18 /min [facility] Oxygen saturation in Arterial blood by Pulse oximetry 2023-10-04 00:00:00 96 /min [facility] Body temperature 2023-10-03 21:06:00 37.33 Dionrah [facility] Body height 2023-10-03 21:06:00 165.1 cm [facility] Body weight 2023-10-03 21:06:00 156.491 kg [facility] BMI 2023-10-03 21:06:00 57.41 kg/m2 [facility] Systolic blood pressure 2023-05-07 03:00:00 145 mm[Hg] [facility] Diastolic blood pressure 2023-05-07 03:00:00 87 mm[Hg] [facility] Heart rate 2023-05-07 03:00:00 85 /min [facility] Respiratory rate 2023-05-07 03:00:00 16 /min [facility] Oxygen saturation in Arterial blood by Pulse oximetry 2023-05-07 03:00:00 97 /min [facility] Body temperature 2023-05-06 23:18:00 36.72 Dinorah [facility] Body height 2023-05-06 23:18:00 165.1 cm [facility] Body weight 2023-05-06 23:18:00 156.491 kg [facility] BMI 2023-05-06 23:18:00 57.41 kg/m2 [facility] Body temperature 2023-04-30 19:18:00 36.78 Dinorah [facility] Heart rate 2023-04-30 13:37:00 72 /min [facility] Respiratory rate 2023-04-30 13:37:00 16 /min [facility] Body height 2023-04-30 13:37:00 165.1 cm [facility] Body weight 2023-04-30 13:37:00 158.759 kg [facility] BMI 2023-04-30 13:37:00 58.24 kg/m2 [facility] Systolic blood pressure 2023-04-30 12:22:00 140 mm[Hg] [facility] Diastolic blood pressure 2023-04-30 12:22:00 82 mm[Hg] [facility] Oxygen saturation in Arterial blood by Pulse oximetry 2023-04-30 12:22:00 96 /min [facility] Systolic blood pressure 2023-04-29 05:25:00 142 mm[Hg] [facility] Diastolic blood pressure 2023-04-29 05:25:00 87 mm[Hg] [facility] Heart rate 2023-04-29 05:25:00 81 /min [facility] Body temperature 2023-04-29 05:25:00 36.5 Dinorah [facility] Respiratory rate 2023-04-29 05:25:00 16 /min [facility] Oxygen saturation in Arterial blood by Pulse oximetry 2023-04-29 05:25:00 93 /min [facility] Body height 2023-04-28 13:19:00 165.1 cm [facility] Body weight 2023-04-28 13:19:00 158.759 kg [facility] BMI 2023-04-28 13:19:00 58.24 kg/m2 [facility] Systolic blood pressure 2023-04-25 18:56:00 133 mm[Hg] [facility] Diastolic blood pressure 2023-04-25 18:56:00 81 mm[Hg] [facility] Heart rate 2023-04-25 18:56:00 86 /min [facility] Respiratory rate 2023-04-25 18:56:00 18 /min [facility] Oxygen saturation in Arterial blood by Pulse oximetry 2023-04-25 18:56:00 98 /min [facility] Body temperature 2023-04-25 18:26:00 36.72 Dinorah [facility] Body height 2023-04-25 16:53:00 165.1 cm [facility] Body weight 2023-04-25 16:53:00 158.759 kg [facility] BMI 2023-04-25 16:53:00 58.24 kg/m2 [facility] Systolic blood pressure 2023-04-09 00:03:00 172 mm[Hg] [facility] Diastolic blood pressure 2023-04-09 00:03:00 102 mm[Hg] [facility] Heart rate 2023-04-09 00:03:00 105 /min [facility] Body temperature 2023-04-09 00:03:00 37.22 Dinorah [facility] Respiratory rate 2023-04-09 00:03:00 18 /min [facility] Oxygen saturation in Arterial blood by Pulse oximetry 2023-04-09 00:03:00 98 /min [facility] Body height 2023-04-08 21:33:00 165.1 cm [facility] Body weight 2023-04-08 21:33:00 163.295 kg [facility] BMI 2023-04-08 21:33:00 59.91 kg/m2 [facility] Systolic blood pressure 2023-03-14 21:55:00 169 mm[Hg] [facility] Diastolic blood pressure 2023-03-14 21:55:00 109 mm[Hg] [facility] Heart rate 2023-03-14 21:55:00 97 /min [facility] Body temperature 2023-03-14 21:55:00 37.5 Dinorah [facility] Respiratory rate 2023-03-14 21:55:00 20 /min [facility] Body weight 2023-03-14 21:55:00 161.934 kg [facility] BMI 2023-03-14 21:55:00 59.41 kg/m2 [facility] Oxygen saturation in Arterial blood by Pulse oximetry 2023-03-14 21:55:00 97 /min [facility] Systolic blood pressure 2023-03-13 15:58:00 135 mm[Hg] BP recheck Dr. Smalls notified [facility] Diastolic blood pressure 2023-03-13 15:58:00 91 mm[Hg] BP recheck Dr. Smalls notified [facility] Heart rate 2023-03-13 15:58:00 85 /min [facility] Respiratory rate 2023-03-13 15:56:00 20 /min [facility] Body height 2023-03-13 15:56:00 165.1 cm [facility] Body weight 2023-03-13 15:56:00 162.206 kg [facility] BMI 2023-03-13 15:56:00 59.51 kg/m2 [facility] Oxygen saturation in Arterial blood by Pulse oximetry 2023-03-13 15:56:00 96 /min [facility] Body temperature 2023-03-13 15:56:00 36.44 Dinorah [facility] Systolic blood pressure 2023-03-12 01:00:00 131 mm[Hg] [facility] Diastolic blood pressure 2023-03-12 01:00:00 72 mm[Hg] [facility] Heart rate 2023-03-12 01:00:00 74 /min [facility] Respiratory rate 2023-03-12 01:00:00 18 /min [facility] Oxygen saturation in Arterial blood by Pulse oximetry 2023-03-12 01:00:00 98 /min [facility] Body temperature 2023-03-11 22:41:00 36.83 Dinorah [facility] Body weight 2023-03-11 22:41:00 162.388 kg [facility] BMI 2023-03-11 22:41:00 59.57 kg/m2 [facility] Systolic blood pressure 2023-02-26 21:16:00 143 mm[Hg] [facility] Diastolic blood pressure 2023-02-26 21:16:00 97 mm[Hg] [facility] Heart rate 2023-02-26 21:16:00 86 /min [facility] Body temperature 2023-02-26 21:01:00 36 Dinorah [facility] Respiratory rate 2023-02-26 21:01:00 18 /min [facility] Oxygen saturation in Arterial blood by Pulse oximetry 2023-02-26 21:01:00 95 /min [facility] Body weight 2023-02-26 08:15:00 166.47 kg [facility] BMI 2023-02-26 08:15:00 61.07 kg/m2 [facility] Body height 2023-02-26 01:35:00 165.1 cm [facility] Systolic blood pressure 2023-02-03 04:00:00 150 mm[Hg] [facility] Diastolic blood pressure 2023-02-03 04:00:00 112 mm[Hg] [facility] Heart rate 2023-02-03 04:00:00 95 /min [facility] Respiratory rate 2023-02-03 04:00:00 20 /min [facility] Oxygen saturation in Arterial blood by Pulse oximetry 2023-02-03 04:00:00 95 /min [facility] Body temperature 2023-02-03 00:27:00 37.39 Dinorah [facility] Body height 2023-02-03 00:27:00 165.1 cm [facility] Body weight 2023-02-03 00:27:00 174.136 kg [facility] BMI 2023-02-03 00:27:00 63.88 kg/m2 [facility] Systolic blood pressure 2022-05-21 18:29:00 154 mm[Hg] [facility] Diastolic blood pressure 2022-05-21 18:29:00 117 mm[Hg] [facility] Heart rate 2022-05-21 18:29:00 106 /min [facility] Body temperature 2022-05-21 18:29:00 37.22 Dinorah [facility] Respiratory rate 2022-05-21 18:29:00 22 /min [facility] Body height 2022-05-21 18:29:00 165.1 cm [facility] Body weight 2022-05-21 18:29:00 158.759 kg [facility] BMI 2022-05-21 18:29:00 58.24 kg/m2 [facility] Oxygen saturation in Arterial blood by Pulse oximetry 2022-05-21 18:29:00 95 /min [facility] Systolic blood pressure 2022-04-23 19:30:00 128 mm[Hg] [facility] Diastolic blood pressure 2022-04-23 19:30:00 85 mm[Hg] [facility] Heart rate 2022-04-23 19:28:00 90 /min [facility] Body temperature 2022-04-23 19:28:00 35.67 Dinorah [facility] Respiratory rate 2022-04-23 19:28:00 18 /min [facility] Body height 2022-04-23 19:28:00 165.1 cm [facility] Body weight 2022-04-23 19:28:00 170.099 kg [facility] BMI 2022-04-23 19:28:00 62.40 kg/m2 [facility] Oxygen saturation in Arterial blood by Pulse oximetry 2022-04-23 19:28:00 98 /min room air [facility] Procedures Procedure Date / Time Performed Performing Clinician Source TROPONIN I 2023-10-03 21:38:00 Taylor Bynum [facility] BASIC METABOLIC PANEL (NA, K , CL, CO2, GLUCOSE, BUN, CREATININE, CA) 2023-10-03 21:38:00 Taylor Bynum [facility] CBC WITH DIFF 2023-10-03 21:38:00 Taylor Bynum [facility] XR CHEST 1 VW 2023-10-03 21:16:00 Misa [facility] CT ABDOMEN PELVIS W CONTRAST 2023-05-07 01:53:39 Alice Pena [facility] POCT TEST 2023-05-06 23:53:00 Alice Pena [facility] LIPASE 2023-05-06 23:51:00 Alice Pena [facility] COMP. METABOLIC PANEL (78683) 2023-05-06 23:51:00 Alice Pena [facility] CBC WITH DIFF 2023-05-06 23:51:00 Alice Pena [facility] PROTHROMBIN TIME / INR 2023-05-06 23:51:00 Alice Pena [facility] ACTIVATED PARTIAL THRMPLAS CARLO 2023-04-27 0 23:51:00 Alice Pena [facility] URINALYSIS 2023-05-06 23:51:00 Alice Pena [facility] CONSENT/REFUSAL FOR DIAGNOSI S AND TREATMENT 2023-05-06 23:11:21 Doctor Unassigned, Mark [facility] MAGNESIUM 2023-04-30 18:22:00 Ever [facility] BASIC METABOLIC PANEL (NA, K , CL, CO2, GLUCOSE, BUN, CREATININE, CA) 2023-04-30 18:22:00 Ever [facility] MAGNESIUM 2023-04-30 18:22:00 Ever [facility] BASIC METABOLIC PANEL (NA, K , CL, CO2, GLUCOSE, BUN, CREATININE, CA) 2023-04-30 18:22:00 Ever [facility] CBC WITH DIFF 2023-04-30 10:34:00 Ever [facility] CBC WITH DIFF 2023-04-30 10:34:00 Ever [facility] DUPLEX VENOUS ARM LEFT - BY VASCULAR LAB 2023-04-29 16:08:41 Nipglynn [facility] DUPLEX VENOUS ARM LEFT - BY VASCULAR LAB 2023-04-29 16:08:41 Nipglynn [facility] LAPAROSCOPIC ROBOTIC ASSISTE D CHOLECYSTECTOMY 2023-04-29 11:49:00 Violette [facility] LAPAROSCOPIC ROBOTIC ASSISTE D CHOLECYSTECTOMY 2023-04-29 11:49:00 Antoinette Mccullough [facility] PHOSPHORUS 2023-04-29 09:05:00 Nipglynn [facility] MAGNESIUM 2023-04-29 09:05:00 Nipglynn [facility] HEPATIC FUNCTION PANEL (8007 6) (ALB,T.PRO,BILI T,BU/BC,ALT,AST,ALK PHOS) 2023-04-29 09:05:00 Nipglynn, [facility] CBC WITHOUT DIFF 2023-04-29 09:05:00 Nipper, [facility] PHOSPHORUS 2023-04-29 09:05:00 Nipper, [facility] MAGNESIUM 2023-04-29 09:05:00 Nipper [facility] HEPATIC FUNCTION PANEL (8007 6) (ALB,T.PRO,BILI T,BU/BC,ALT,AST,ALK PHOS) 2023-04-29 09:05:00 [facility] CBC WITHOUT DIFF 2023-04-29 09:05:00 [facility], [facility] HB ABO GROUPING 2023-04-28 19:02:00 Niko Evan [facility] HB ABO GROUPING 2023-04-28 19:02:00 Niko Evan [facility] HB ABO GROUPING 2023-04-28 19:02:00 Niko Evan [facility] PHOSPHORUS 2023-04-28 09:26:00 Nipper, [facility] MAGNESIUM 2023-04-28 09:[facility] (8007 6[facility] (ALB,T.PRO,BILI T,BU/BC,ALT,AST,ALK PHOS) 2023-04-28 09:26:00 [facility]OLIC [facility]EL (NA, K , CL, CO2, GLUCOSE, BUN, CREATININE, CA) 2023-04-28 09:26:00 [facility], [facility] CBC WITHOUT DIFF 2023-04-28 09:26:00 [facility], [facility] PHOSPHORUS 2023-04-28 09:26:00 [facility] 2023-04-28 09:26:00 [facility], [facility] HEPATIC FUNCTION PANEL (8007 6) (ALB,T.PRO,BILI T,BU/BC,ALT,AST,ALK PHOS) 2023-04-28 09:26:00 [facility], [facility] BASIC METABOLIC PANEL (NA, K , CL, CO2, GLUCOSE, BUN, CREATININE, CA) 2023-04-28 09:26:00 [facility], [facility] CBC WITHOUT DIFF 2023-04-28 09:26:00 Nipper, [facility] PHOSPHORUS 2023-04-28 09:26:00 Nipper, [facility] MAGNESIUM 2023-04-28 09:26:00 Nipper, [facility] HEPATIC FUNCTION PANEL (8007 6) (ALB,T.PRO,BILI T,BU/BC,ALT,AST,ALK PHOS) 2023-04-28 09:26:00 [facility], [facility] BASIC METABOLIC PANEL (NA, K , CL, CO2, GLUCOSE, BUN, CREATININE, CA) 2023-04-28 09:26:00 Nipper, [facility] CBC WITHOUT DIFF 2023-04-28 09:26:00 Nipper, [facility] PHOSPHORUS 2023-04-27 10:46:00 Nipper, [facility] MAGNESIUM 2023-04-27 10:46:00 [facility] (8007 6) (ALB,T.PRO,BILI T,BU/BC,ALT,AST,ALK PHOS) 2023-04-27 10:46:00 Nipper, [facility] BASIC METABOLIC PANEL (NA, K , CL, CO2, GLUCOSE, BUN, CREATININE, CA) 2023-04-27 10:46:00 Nipper, [facility] CBC WITHOUT DIFF 2023-04-27 10:46:00 Nipper, [facility] PHOSPHORUS 2023-04-27 10:46:00 Nipper, [facility] MAGNESIUM 2023-04-27 10:46:00 Nipper, [facility] HEPATIC FUNCTION PANEL (8007 6) (ALB,T.PRO,BILI T,BU/BC,ALT,AST,ALK PHOS) 2023-04-27 10:46:00 Nipper, [facility] BASIC METABOLIC PANEL (NA, K , CL, CO2, GLUCOSE, BUN, CREATININE, CA) 2023-04-27 10:46:00 Nipper, [facility] CBC WITHOUT DIFF 2023-04-27 10:46:00 Nipper, [facility] PHOSPHORUS 2023-04-27 10:46:00 Nipper, [facility] MAGNESIUM 2023-04-27 10:46:00 Nipper, [facility] HEPATIC FUNCTION PANEL (8007 6) (ALB,T.PRO,BILI T,BU/BC,ALT,AST,ALK PHOS) 2023-04-27 10:46:00 [facility], [facility] BASIC METABOLIC PANEL (NA, K , CL, CO2, GLUCOSE, BUN, CREATININE, CA) 2023-04-27 10:46:00 Nipper, [facility] CBC WITHOUT DIFF 2023-04-27 10:46:00 Nipper, [facility] PHOSPHORUS 2023-04-26 10:34:00 Nipper, [facility] LIPASE 2023-04-26 10:34:00 Pacheco [facility] MAGNESIUM 2023-04-26 10:34:00 [facility], [facility] HEPATIC FUNCTION PANEL (8007 6) (ALB,T.PRO,BILI T,BU/BC,ALT,AST,ALK PHOS) 2023-04-26 10:34:00 Nipper, [facility] BASIC METABOLIC PANEL (NA, K , CL, CO2, GLUCOSE, BUN, CREATININE, CA) 2023-04-26 10:34:00 Nipper, [facility] CBC WITHOUT DIFF 2023-04-26 10:34:00 Nipglynn, [facility] PHOSPHORUS 2023-04-26 10:34:00 Nipper, [facility] LIPASE 2023-04-26 10:34:00 [place] [facility] MAGNESIUM 2023-04-26 10:34:00 Nipper, [facility] HEPATIC FUNCTION PANEL (8007 6) (ALB,T.PRO,BILI T,BU/BC,ALT,AST,ALK PHOS) 2023-04-26 10:34:00 Nipper, [facility] BASIC METABOLIC PANEL (NA, K , CL, CO2, GLUCOSE, BUN, CREATININE, CA) 2023-04-26 10:34:00 Nipper, [facility] CBC WITHOUT DIFF 2023-04-26 10:34:00 Ron Hurt [facility] PHOSPHORUS 2023-04-26 10:34:00 Ron Hurt [facility] LIPASE 2023-04-26 10:34:00 Yasir Bergman [facility] MAGNESIUM 2023-04-26 10:34:00 Licha [facility] HEPATIC FUNCTION PANEL (8007 6) (ALB,T.PRO,BILI T,BU/BC,ALT,AST,ALK PHOS) 2023-04-26 10:34:00 Licha [facility] BASIC METABOLIC PANEL (NA, K , CL, CO2, GLUCOSE, BUN, CREATININE, CA) 2023-04-26 10:34:00 Licha [facility] CBC WITHOUT DIFF 2023-04-26 10:34:00 Licha [facility] SURGICAL PATHOLOGY EXAM 2023-04-25 18:13:00 Jennifer [facility] SURGICAL PATHOLOGY EXAM 2023-04-25 18:13:00 Jennifer [facility] ESOPHAGOGASTRODUODENOSCOPY 2023-04-25 17:40:00 Jennifer [facility] ESOPHAGOGASTRODUODENOSCOPY 2023-04-25 17:40:00 Jennifer [facility] EGD (ENDO) 2023-04-25 16:55[facility] 16:55:25 Randy Chauhan [facility] EGD (ENDO) 2023-04-25 16:55:25 Randy Chauhan [facility] PHOSPHORUS 2023-04-25 10:33:00 Licha [facility] MAGNESIUM 2023-04-25 10:33:00 Licha [facility] HEPATIC FUNCTION PANEL (8007 6) (ALB,T.PRO,BILI T,BU/BC,ALT,AST,ALK PHOS) 2023-04-25 10:33:00 Licha [facility] BASIC METABOLIC PANEL (NA, K , CL, CO2, GLUCOSE, BUN, CREATININE, CA) 2023-04-25 10:33:00 Nipper, [facility] CBC WITHOUT DIFF 2023-04-25 10:33:00 Nipper, [facility] PHOSPHORUS 2023-04-25 10:33:00 Nipper, [facility] MAGNESIUM 2023-04-25 10:33:00 Nipper, [facility] HEPATIC FUNCTION PANEL (8007 6) (ALB,T.PRO,BILI T,BU/BC,ALT,AST,ALK PHOS) 2023-04-25 10:33:00 Nipper, [facility] BASIC METABOLIC PANEL (NA, K , CL, CO2, GLUCOSE, BUN, CREATININE, CA) 2023-04-25 10:33:00 Nipper, [facility] CBC WITHOUT DIFF 2023-04-25 10:33:00 Nipper, [facility] PHOSPHORUS 2023-04-25 10:33:00 Nipper, [facility] MAGNESIUM 2023-04-25 10:33:00 Nipper, [facility] HEPATIC FUNCTION PANEL (8007 6) (ALB,T.PRO,BILI T,BU/BC,ALT,AST,ALK PHOS) 2023-04-25 10:33:00 [facility], [facility] BASIC METABOLIC PANEL (NA, K , CL, CO2, GLUCOSE, BUN, CREATININE, CA) 2023-04-25 10:33:00 Nipper, [facility] CBC WITHOUT DIFF 2023-04-25 10:33:00 [facility] ENDOSCOPY PROCEDURE DOCUMENTATION 04-25 05:01:00 Doctor Unassigned, Mark [facility] ENDOSCOPY PROCEDURE DOCUMENTATION 04-25 05:01:00 Doctor Unassigned, Mark [facility] ENDOSCOPY PROCEDURE DOCUMENTATION 04-25 05:01:00 Doctor Unassigned, Mark [facility] POCT TEST 2023-04-25 00:00:00 [facility] 00:00:00 Dottie [facility] POCT TEST 2023-04-25 00:00:00 Dottie [facility] PHOSPHORUS 2023-04-24 10:22:00 Nipglynn, [facility] MAGNESIUM 2023-04-24 10:22:00 Nipper, [facility] HEPATIC FUNCTION PANEL (8007 6) (ALB,T.PRO,BILI T,BU/BC,ALT,AST,ALK PHOS) 2023-04-24 10:22:00 Nipper, [facility] BASIC METABOLIC PANEL (NA, K , CL, CO2, GLUCOSE, BUN, CREATININE, CA) 2023-04-24 10:22:00 Nipper, [facility] CBC WITHOUT DIFF 2023-04-24 10:22:00 Nipper, [facility] PHOSPHORUS 2023-04-24 10:22:00 Nipper, [facility] MAGNESIUM 2023-04-24 10:22:00 Nipper, [facility] HEPATIC FUNCTION PANEL (8007 6) (ALB,T.PRO,BILI T,BU/BC,ALT,AST,ALK PHOS) 2023-04-24 10:22:00 Nipper, [facility] BASIC METABOLIC PANEL (NA, K , CL, CO2, GLUCOSE, BUN, CREATININE, CA) 2023-04-24 10:22:00 Nipper, [facility] CBC WITHOUT DIFF 2023-04-24 10:22:00 Nipper, [facility] PHOSPHORUS 2023-04-24 10:22:00 Nipper, [facility] MAGNESIUM 2023-04-24 10:22:00 Nipper, [facility] HEPATIC FUNCTION PANEL (8007 6) (ALB,T.PRO,BILI T,BU/BC,ALT,AST,ALK PHOS) 2023-04-24 10:22:00 Nipper, [facility] BASIC METABOLIC PANEL (NA, K , CL, CO2, GLUCOSE, BUN, CREATININE, CA) 2023-04-24 10:22:00 Nipper, [facility] CBC WITHOUT DIFF 2023-04-24 10:22:00 Nipper, [facility] PHOSPHORUS 2023-04-23 09:58:00 Nipper, [facility] MAGNESIUM 2023-04-23 09:58[facility] (8007 6) (ALB,T.PRO,BILI T,BU/BC,ALT,AST,ALK PHOS) 2023-04-23 09:58:00 Nipper, [facility] BASIC METABOLIC PANEL (NA, K , CL, CO2, GLUCOSE, BUN, CREATININE, CA) 2023-04-23 09:58:00 Nipper, [facility] CBC WITHOUT DIFF 2023-04-23 09:58:00 Nipper, [facility] PHOSPHORUS 2023-04-23 09:58:00 Nipper, [facility] MAGNESIUM 2023-04-23 09:58:00 Nipper, [facility] HEPATIC FUNCTION PANEL (8007 6) (ALB,T.PRO,BILI T,BU/BC,ALT,AST,ALK PHOS) 2023-04-23 09:58:00 Nipper, [facility] BASIC METABOLIC PANEL (NA, K , CL, CO2, GLUCOSE, BUN, CREATININE, CA) 2023-04-23 09:58:00 Nipper, [facility] CBC WITHOUT DIFF 2023-04-23 09:58:00 Nipper, [facility] PHOSPHORUS 2023-04-23 09:58:00 Nipper, [facility] MAGNESIUM 2023-04-23 09:58:00 Nipper, [facility] HEPATIC FUNCTION PANEL (8007 6) (ALB,T.PRO,BILI T,BU/BC,ALT,AST,ALK PHOS) 2023-04-23 09:58:00 Nipper, [facility] BASIC METABOLIC PANEL (NA, K , CL, CO2, GLUCOSE, BUN, CREATININE, CA) 2023-04-23 09:58:00 Ron Hurt [facility] CBC WITHOUT DIFF 2023-04-23 09:58:00 Ron Hurt [facility] CT ABDOMEN PELVIS W CONTRAST 2023-04-23 01:21:37 Licha [facility] CT ABDOMEN PELVIS W CONTRAST 2023-04-23 01:21:37 Nipglynn [facility] CT ABDOMEN PELVIS W CONTRAST 2023-04-23 01:21:37 Licha Ron [facility] US ABDOMEN LIMITED 2023-04-22 03:10:58 Umm [facility] US ABDOMEN LIMITED 2023-04-22 03:10:58 Umm [facility] ABDOMEN LIMITED 2023-04-22 03:10:58 Umm [facility] HB ECG ROUTINE & RHYTHM STRIP 2023-04-22 00:59:17 [facility] HB ECG ROUTINE & RHYTHM STRIP 2023-04-22 00:59:17 Umm [facility] HB ECG ROUTINE & RHYTHM STRIP 2023-04-22 00:59:17 [facility] URINALYSIS 2023-04-22 00:31:00 [facility] URINE DRUG (IMMUNOASSAY) - COMPREHENSIVE DRUG SCREEN W/O REFLEX 2023-04-22 00:31:00 [facility] URINALYSIS 2023-04-22 00:31:00 [facility]mm [facility] URINE DRUG (IMMUNOASSAY) - COMPREHENSIVE DRUG SCREEN W/O REFLEX 2023-04-22 00:31:00 [facility] URINALYSIS 2023-04-22 00:31:00 [facility] URINE DRUG (IMMUNOASSAY) - COMPREHENSIVE DRUG SCREEN W/O REFLEX 2023-04-22 00:31:00 [facility] LIPASE 2023-04-21 23:34:00 [facility] TEST, SERUM 2023-04-21 23:34:00 [facility] COMP. METABOLIC PANEL (40512) 2023-04-21 23:34:00 [facility] CBC WITH DIFF 2023-04-21 23:34:00 [facility] LIPASE 2023-04-21 23:34:00 [facility] TEST, SERUM 2023-04-21 23:34:00 [facility] COMP. METABOLIC PANEL (43196) 2023-04-21 23:34:00 [facility] CBC WITH DIFF 2023-04-21 23:34:00 [facility] LIPASE 2023-04-21 23:34:00 [facility] TEST, SERUM 2023-04-21 23:34:00 [facility] COMP. METABOLIC PANEL (45039) 2023-04-21 23:34:00 [facility] CBC WITH DIFF 2023-04-21 23:34:00 [facility] CONSENT/REFUSAL FOR DIAGNOSI S AND TREATMENT 2023-04-21 21:17:49 Doctor Unassigned, Mark [facility] CONSENT/REFUSAL FOR DIAGNOSI S AND TREATMENT 2023-04-21 21:17:49 Doctor Unassigned, Mark [facility] CONSENT/REFUSAL FOR DIAGNOSI S AND TREATMENT 2023-04-21 21:17:49 Doctor Unassigned, Mark [facility] ASSIGNMENT OF BENEFITS 2023-04-08 23:48:11 Doctor Unassigned, Mark [facility] CT LUMBAR SPINE WO CONTRAST 2023-04-08 22:48:53 Kate Sierra [facility] URINALYSIS 2023-04-08 22:20:00 Kate Sierra [facility] CONSENT/REFUSAL FOR DIAGNOSI S AND TREATMENT 2023-04-08 21:27:01 Doctor Unassigned, Mark [facility] COVID-19 (ID NOW RAPID TESTING) 22:00:00 Kassy Gutierrez [facility] CONSENT/REFUSAL FOR DIAGNOSI S AND TREATMENT 2023-03-14 21:53:37 Doctor Unassigned, Mark [facility] DISCLOSURE AND CONSENT, MEDI HARPREET AND SURGICAL PROCEDURES 2023-03-13 05:01:00 Doctor Unassigned, Mark [facility] LIPASE 2023-03-12 00:30:00 Zeynep Mitchell [facility] TROPONIN I 2023-03-12 00:30:00 [facility]. METABOLIC PANEL (79929) 2023-03-12 00:30:00 Zeynep Mitchell [facility] CBC WITH DIFF 2023-03-12 [facility]:30[facility] 2023-03-12 00:30:00 Stephen Zeynep [facility] ASSIGNMENT OF BENEFITS 2023-03-11 23:33:23 Doctor Unassigned, Mark [facility] CONSENT/REFUSAL FOR DIAGNOSI S AND TREATMENT 2023-03-11 22:27:28 Doctor Unassigned, Mark [facility] TROPONIN I 2023-02-26 19:05:00 [facility] HEPATIC FUNCTION PANEL (8007 6) (ALB,T.PRO,BILI T,BU/BC,ALT,AST,ALK PHOS) 2023-02-26 19:05:00 Erika Pelaez [facility] US ABDOMEN COMPLETE 2023-02-26 17:32:44 Roman Mena [facility] TRANSTHORACIC ECHO (TTE) COMPLETE 02-26 13:45:00 Justen Patton [facility] TROPONIN I 2023-02-26 09:16:00 Justen Patton [facility] TROPONIN I 2023-02-26 01:13:00 Justen Patton [facility] URINALYSIS 2023-02-25 22:26:00 Bairon Meyers [facility] CT STROKE ANGIOGRAM HEAD 2023-02-25 20:59:00 Bairon Meyers [facility] CT STROKE ANGIOGRAM NECK 2023-02-25 20:59:00 Bairon Meyers [facility] CT STROKE HEAD WO CONTRAST 2023-02-25 20:46:55 Bairon Meyers [facility] TROPONIN I 2023-02-25 20:31:00 Bairon Meyers [facility] THYROID STIMULATING HORMONE 2023-02-25 20:31:00 Justen Patton [facility] BASIC METABOLIC PANEL (NA, K , CL, CO2, GLUCOSE, BUN, CREATININE, CA) 2023-02-25 20:31:00 Bairon Meyers [facility] LIPID PANEL (75981)(TOTAL CHOLESTEROL, TRIGLYCERIDES, HDL) 2023-02-25 20:31:00 Justen Patton [facility] CBC WITHOUT DIFF 2023-02-25 20:31:00 Bairon Meyers [facility] PROTHROMBIN TIME / INR 2023-02-25 20:31:00 Bairon Meyers [facility] ACTIVATED PARTIAL THRMPLAS CARLO 1 20:31:00 Bairon Meyers [facility] CT ABDOMEN PELVIS W CONTRAST 2023-02-03 01:48:38 Damion Hamlin [facility] POCT TEST 2023-02-03 00:43:00 Damion Hamlin [facility] URINALYSIS 2023-02-03 00:40:00 Damion Hamlin [facility] LIPASE 2023-02-03 00:39:00 Damion Hamlin [facility] COMP. METABOLIC PANEL ([id number]) 2023-02-03 00:39:00 Damion Hamlin [facility] CBC WITH DIFF 2023-02-03 00:39:00 Damion Hamlin [facility] NOTICE OF PRIVACY PRACTICES 2023-02-03 00:17:34 Doctor Unassigned, Mark [facility] CONSENT/REFUSAL FOR DIAGNOSI S AND TREATMENT 2023-02-03 00:14:58 Doctor Unassigned, Mark [facility] COVID-19 (ID NOW RAPID TESTING) 18:42:00 Kassy Gutierrez [facility] CONSENT/REFUSAL FOR DIAGNOSI S AND TREATMENT 2022-05-21 18:23:51 Doctor Unassigned, Mark [facility] COVID-19 (MOLECULAR TESTING NUCLEIC ACID AMPLIFICATION) 2022-04-23 19:40:00 Rasta Anne [facility] LAB ONLY COVID INTERPRETATION 2022-04-23 19:40:00 Rasta Anne [facility] POCT MOLECULAR FLU 2022-04-23 19:35:00 Panda Flanagan [facility] ASSIGNMENT OF BENEFITS 2022-03-13 21:28:15 Doctor Unassigned, Mark [facility] DERMATOPATHOLOGY TISSUE EXAM 2021-05-25 00:00:00 Javi Mcpherson [facility] Encounters Start Date/Time End Date/Time Encounter Type Admission Type Attending Clinicians Care Facility Care Department Encounter ID Source 2023-05-01 10:38:09 Outpatient EKTA RANGEL [facility] [id number] [facility] 2021-05-29 09:09:24 Emergency [facility] [id number] [facility] 2021-05-28 09:54:12 Outpatient P [facility] [id number] [facility] 2021-05-28 09:46:44 Emergency [facility] [id number] [facility] 2021-05-27 12:42:05 Emergency [facility] [id number] [facility] 2021-05-26 21:03:09 Emergency [facility] [id number] [facility] 2024-01-26 00:00:00 2024-01-26 09:24:31 [facility] 1.2.840.114 350.1.13.10 4.2.7.2.686 [id number] [facility] 2024-01-09 13:30:00 2024-01-09 13:30:00 Outpatient SABINO GUERRERO OGECHUKWU [facility] [id number] [facility] 2024-01-08 00:00:00 2024-01-08 16:07:59 Case Management Nissa Velasco [facility] 1..840.114 350.1.13.10 4.2.7.2.686 [id number] [facility] 2024-01-08 15:15:00 2024-01-08 15:15:00 Outpatient R [facility] [id number] [facility] 2023-12-30 13:45:00 2023-12-30 13:45:00 Outpatient R LESLYE COPE CRAIG [facility] [id number] [facility] 2023-12-24 14:30:00 2023-12-24 14:30:00 [facility] [id number] [facility] 2023-12-16 14:30:00 2023-12-16 15:42:50 Outpatient R LESLYE COPE CRAIG [facility] [id number] [facility] 2023-12-16 14:30:00 2023-12-16 15:42:50 Ancillary Visit Gabrielle Medellin Craig L [facility] 1..840.114 350.1.13.10 4.2.7.2.686 [id number] [facility] 2023-12-01 00:00:00 2023-12-01 13:51:45 Patient Outreach Jacqueline Baker [facility] 1..840.114 350.1.13.10 4.2.7.2.686 [id number] [facility] 2023-11-28 00:00:00 2023-11-28 00:00:00 Telephone Sabino Simmons [facility] 1..840.114 350.1.13.10 4.2.7.2.686 [id number] [facility] 2023-11-26 14:15:00 2023-11-26 14:30:00 Master Control Technician Visit 2, Adc Lab Sabino Simmons [facility] 1.2.840.114 350.1.13.10 4.2.7.2.686 [id number] [facility] 2023-11-26 13:00:00 2023-11-26 14:10:33 Outpatient R IRIS, SUSANDON PALOMOSIVAIvaniaWood [facility] [id number] [facility] 2023-11-26 13:00:00 2023-11-26 14:10:33 Office Visit Sabino Simmons [facility] 1.2.840.114 350.1.13.10 4.2.7.2.686 [id number] [facility] 2023-11-25 13:45:00 2023-11-25 13:45:00 Outpatient R [facility] [id number] [facility] 2023-11-21 13:00:00 2023-11-21 13:00:00 Outpatient R DON SIMMONSSIVAJACKELINE IRISDON ROUSESIVAJACKELINE [facility] [id number] [facility] 2023-11-17 14:00:00 2023-11-17 14:00:00 Outpatient R DON SIMMONSNORMMICHELLE IRISDON ROUSESIVAIvaniaU [facility] [id number] [facility] 2023-11-14 14:00:00 2023-11-14 14:00:00 Outpatient R SABINO SIMMONS OGECHUKWU [facility] [id number] [facility] 2023-11-07 13:30:00 2023-11-07 13:30:00 Outpatient R MICHAEL BETANCUR [facility] [id number] [facility] 2023-11-03 13:00:00 2023-11-03 13:00:00 Outpatient R [facility] [id number] [facility] 2023-11-03 09:00:00 2023-11-03 09:00:00 Outpatient R HUNTER MCPHERSONON [facility] [id number] [facility] 2023-10-20 00:00:00 2023-10-20 00:00:00 Patient Secure Msg Doctor Unassigned, Mark [facility] 1.2.840.114 350.1.13.10 4.2.7.2.686 [id number] [facility] 2023-10-17 13:03:23 2023-10-17 23:59:00 Outpatient R REY BETANCURSAY [facility] [id number] [facility] 2023-10-10 15:45:00 2023-10-10 16:00:00 Master Control Technician [facility] 1.2.840.114 350.1.13.10 4.2.7.2.686 [id number] [facility] 2023-10-10 14:50:00 2023-10-10 15:47:49 [facility] [id number] [facility] 2023-10-10 14:50:00 2023-10-10 15:47:49 Office Visit Nabila Pedro [facility] 1.2.840.114 350.1.13.10 4.2.7.2.686 [id number] [facility] 2023-10-03 15:08:00 2023-10-03 18:40:00 Emergency TAYLOR VEGAS [facility] [id number] [facility] 2023-10-03 15:08:00 2023-10-03 18:40:00 Emergency Alice Pena Whitney [facility] 1.2840.114 350.1.13.10 4.2.7.2.686 [id number] [facility] 2023-09-29 00:00:00 2023-09-29 00:00:00 Telephone Priscilla Javi Rodrigo [facility] 1.20.114 350.1.13.10 4.2.7.2.686 [id number] [facility] 2023-07-03 11:00:00 2023-07-03 11:00:00 Outpatient R [facility] [id number] [facility] 2023-05-23 09:15:00 2023-05-23 09:15:00 Outpatient R ANTOINETTE MCCULLOUGH [facility] [id number] [facility] 2023-05-21 16:15:00 2023-05-21 16:15:00 Outpatient R ANTOINETTE MCCULLOUGH [facility] [id number] [facility] 2023-05-06 18:19:00 2023-05-06 22:17:00 Emergency X ALICE PENA [facility] ERT [id number] [facility] 2023-05-06 18:19:00 2023-05-06 22:17:00 Emergency Alice Pena [facility] 1.2840.114 350.1.13.10 4.2.7.2.686 [id number] [facility] 2023-05-01 00:00:00 2023-05-01 00:00:00 Transition of Care Lolita Willett 1.2.840.114 350.1.13.10 4.2.7.2.686 [id number] [facility] 2023-04-21 16:49:00 2023-04-30 16:15:00 Outpatient X ANTOINETTE MCCULLOUGH [facility] [id number] [facility] 2023-04-21 16:49:00 2023-04-30 16:15:00 Hospital Encounter Austin Salomon Sara Michelle [facility] 1.2840.114 350.1.13.10 4.2.7.2.686 [id number] [facility] 2023-04-30 00:00:00 2023-04-30 00:00:00 Telephone [facility] 1.840.114 350.1.13.10 4.2.7.2.686 [id number] [facility] 2023-04-29 06:50:00 2023-04-29 09:02:00 Surgery [facility] 1.2840.114 350.1.13.10 4.2.7.2.686 [id number] [facility] 2023-04-25 13:26:00 2023-04-25 14:05:00 Surgery Marcos Rodriguez [facility] 1.0.114 350.1.13.10 4.2.7.2.686 [id number] [facility] 2023-04-24 15:30:00 2023-04-24 15:30:00 Outpatient JANI PARRISH [facility] [id number] [facility] 2023-04-16 10:30:00 2023-04-16 10:30:00 Outpatient JANI PARRISH [facility] [id number] [facility] 2023-04-09 00:00:00 2023-04-09 00:00:00 Patient Secure Msg Doctor Unassigned, Mark [facility] 1.0.114 350.1.13.10 4.2.7.2.686 [id number] [facility] 2023-04-08 16:34:00 2023-04-08 19:33:00 Emergency X KATE SIERRA [facility] E[facility] [id number] [facility] 2023-04-08 16:34:00 2023-04-08 19:33:00 Emergency Kate Sierra [facility] 1.840.114 350.1.13.10 4.2.7.2.686 [id number] [facility] 2023-04-07 15:00:00 2023-04-07 15:00:00 Outpatient FARIHA AGUIAR HOWARD [facility] [id number] [facility] 2023-03-20 00:00:00 2023-03-20 00:00:00 Patient Secure Msg Doctor Unassigned, Mark [facility] 1.84.114 350.1.13.10 4.2.7.2.686 [id number] [facility] 2023-03-14 16:57:00 2023-03-14 17:50:00 Emergency Cecilio KASSY GUTIERREZ [facility] E[facility] [id number] [facility] 2023-03-14 16:57:00 2023-03-14 17:50:00 Emergency Kassy Gutierrez [facility] 1.840.114 350.1.13.10 4.2.7.2.686 [id number] [facility] 2023-03-13 11:00:00 2023-03-13 11:30:00 Office Visit Isha Smalls Boaz [facility] 1.84.114 350.1.13.10 4.2.7.2.686 [id number] [facility] 2023-03-13 11:00:00 2023-03-13 11:00:00 Outpatient BOAZ SHAHID [facility] [id number] [facility] 2023-03-13 00:00:00 2023-03-13 00:00:00 Orders Only Doctor Unassigned, Mark [facility] 1.84.114 350.1.13.10 4.2.7.2.686 [id number] [facility] 2023-03-13 00:00:00 2023-03-13 00:00:00 Telephone Isha Smalls [facility] 1.84.114 350.1.13.10 4.2.7.2.686 [id number] [facility] 2023-03-11 17:46:00 2023-03-11 20:59:00 [facility] [id number] [facility] 2023-03-11 17:46:00 2023-03-11 20:59:00 Emergency Neha Mitchellanne [facility] 1.840.114 350.1.13.10 4.2.7.2.686 [id number] [facility] 2023-02-25 14:43:00 2023-02-26 19:25:00 Outpatient X JUSTEN PATTON [facility] [id number] [facility] 2023-02-25 14:43:00 2023-02-26 19:25:00 Emergency Bairon Meyers David [facility] 1.840.114 350.1.13.10 4.2.7.2.686 [id number] [facility] 2023-02-02 19:28:00 2023-02-02 23:34:00 Emergency X DAMION HAMLIN [facility] E[facility] [id number] [facility] 2023-02-02 19:28:00 2023-02-02 23:34:00 Emergency Damion Hamlin [facility] 1.2.840.114 350.1.13.10 4.2.7.2.686 [id number] [facility] 2022-08-27 11:00:00 2022-08-27 11:00:00 Outpatient R JAVI MCPHERSON [facility] [id number] [facility] 2022-06-18 13:00:00 2022-06-18 13:00:00 Outpatient ZEV CH [facility] [id number] [facility] 2022-05-21 13:38:00 2022-05-21 14:10:00 Emergency X KASSY GUTIERREZ [facility] E[facility] [id number] [facility] 2022-05-21 13:38:00 2022-05-21 14:10:00 Emergency Kassy Gutierrez [facility] 1.2.840.114 350.1.13.10 4.2.7.2.686 [id number] [facility] 2022-04-24 00:00:00 2022-04-24 00:00:00 Patient Secure Msg Dayana Rasta [facility] 1.2.840.114 350.1.13.10 4.2.7.2.686 [id number] [facility] 2022-04-23 15:30:00 2022-04-23 16:00:00 Office Visit Rsata Anne Alexander [facility] 1.2.840.114 350.1.13.10 4.2.7.2.686 [id number] [facility] 2022-04-23 15:30:00 2022-04-23 15:30:00 Outpatient PANDA ECHEVARRIA [facility] [id number] [facility] 2022-04-01 00:00:00 2022-04-01 00:00:00 Telephone Javi Mcpherson [facility] 1..114 350.1.13.10 4.2.7.2.686 [id number] [facility] 2022-03-13 16:15:00 2022-03-13 16:30:00 Laboratory Only Only, Ang Db Test Brown, [facility] 1..114 350.1.13.10 4.2.7.2.686 [id number] [facility] 2022-03-13 16:15:00 2022-03-13 16:15:00 Outpatient R [facility] [id number] [facility] 2022-03-13 00:00:00 2022-03-13 00:00:00 Orders Only Doctor Unassigned, Mark [facility] 1..114 350.1.13.10 4.2.7.2.686 [id number] [facility] 2022-03-04 10:15:00 2022-03-04 10:15:00 Outpatient Tasha MCPHERSON [facility] [id number] [facility] 2022-01-08 10:30:00 2022-01-08 10:30:00 Outpatient Tasha MCPHERSON [facility] [id number] [facility] 2021-12-05 19:26:00 2021-12-05 20:13:00 Emergency X SAYDA ZAFAR [facility] E[facility] [id number] [facility] 2021-12-05 19:26:00 2021-12-05 20:13:00 Emergency Sayda Zafar [facility] 1.114 350.1.13.10 4.2.7.2.686 [id number] [facility] 2021-12-05 19:26:00 2021-12-05 20:13:00 Emergency X SAYDA ZAFAR [facility] [id number] [facility] 2021-09-25 15:10:00 2021-09-25 15:10:00 Outpatient R UNKNOWN, ATTENDING [facility] [id number] [facility] 2021-09-25 15:10:00 2021-09-25 15:10:00 Outpatient R UNKNOWN, ATTENDING [facility] [id number] [facility] 2021-08-22 00:00:00 2021-08-22 00:00:00 Patient Secure Msg Randy Chauhan [facility] 1.84.114 350.1.13.10 4.2.7.2.686 [id number] [facility] 2021-08-22 00:00:00 2021-08-22 00:00:00 Patient Secure Msg Doctor Unassigned, Mark [facility] 1.84.114 350.1.13.10 4.2.7.2.686 [id number] [facility] 2021-08-21 15:13:16 2021-08-21 23:59:00 Outpatient R BRANDON RIVERA [facility] [id number] [facility] 2021-08-21 15:13:16 2021-08-21 23:59:00 Hospital Encounter Brandon Rivera [facility] 1.840.114 350.1.13.10 4.2.7.2.686 [id number] [facility] 2021-08-21 15:13:16 2021-08-21 23:59:00 Outpatient R BRANDON RIVERA [facility] [id number] [facility] 2021-08-21 15:30:00 2021-08-21 15:45:00 Master Control Technician Visit Pcp-Lab Brandon Rivera [facility] 1.84.114 350.1.13.10 4.2.7.2.686 [id number] [facility] 2021-08-21 14:20:00 2021-08-21 15:05:01 Outpatient Tasha VAZQUEZ, ELENA [facility] [id number] [facility] 2021-08-21 14:20:00 2021-08-21 15:05:01 Office Visit Randy Chauhan, Attending Brandon Rivera [facility] 1.2.840.114 350.1.13.10 4.2.7.2.686 [id number] [facility] 2021-08-21 14:20:00 2021-08-21 15:05:01 Outpatient R BRANDON RIVERA [facility] [id number] [facility] 2021-08-15 00:00:00 2021-08-15 00:00:00 Telephone [facility] 1.2.840.114 350.1.13.10 4.2.7.2.686 [id number] [facility] 2021-08-06 00:00:00 2021-08-06 00:00:00 Refill [facility] 1.2.840.114 350.1.13.10 4.2.7.2.686 [id number] [facility] 2021-07-30 10:30:00 2021-07-30 10:30:00 Outpatient JAVI LAGUERRE [facility] [id number] [facility] 2021-07-26 00:00:00 2021-07-26 00:00:00 RefRandy Cottrell [facility] 1.2.840.114 350.1.13.10 4.2.7.2.686 [id number] [facility] 2021-07-25 10:40:00 2021-07-25 10:40:00 Outpatient SCARLET VELASQUEZ [facility] [id number] [facility] 2021-06-26 16:00:00 2021-06-26 16:00:00 Outpatient R [facility] [id number] [facility] 2021-06-26 16:00:00 2021-06-26 16:00:00 Outpatient R [facility] [id number] [facility] 2021-06-26 14:20:00 2021-06-26 14:20:00 Outpatient R TAYLOR, ELENA [facility] [id number] [facility] 2021-06-19 10:00:00 2021-06-19 10:00:00 Outpatient R SELINA BUCKLEY [facility] [id number] [facility] 2021-06-19 10:00:00 2021-06-19 10:00:00 Outpatient R SELINA BUCKLEY [facility] [id number] [facility] 2021-06-12 14:15:00 2021-06-12 14:15:00 Outpatient R CASSIUS ZULUAGA [facility] [id number] [facility] 2021-06-11 11:00:00 2021-06-11 11:00:00 Outpatient BRANDON CAREY [facility] [id number] [facility] 2021-06-11 00:00:00 2021-06-11 00:00:00 Outpatient BRANDON CAREY [facility] [id number] [facility] 2021-06-11 00:00:00 2021-06-11 00:00:00 Outpatient BRANDON CAREY [facility] [id number] [facility] 2021-06-11 00:00:00 2021-06-11 00:00:00 Outpatient BRANDON CAREY [facility] [id number] [facility] 2021-06-08 09:30:00 2021-06-08 14:17:29 Outpatient CAROLYN MONSALVE [facility] [id number] [facility] 2021-06-08 09:41:59 2021-06-08 09:56:59 Nurse Visit Visit, [facility] Nurse Carolyn Herrera [facility] [id number] [facility] 2021-06-08 09:30:00 2021-06-08 09:30:00 Outpatient CAROLYN MONSALVE [facility] [id number] [facility] 2021-06-08 09:30:00 2021-06-08 09:30:00 [id number] 2021-06-08 00:00:00 2021-06-08 00:00:00 Telephone Javi Mcpherson [facility] 1..114 350.1.13.10 4.2.7.2.686 [id number] [facility] 2021-06-06 10:44:36 2021-06-06 11:41:03 Office Visit Randy Chauhan [facility] 1.0.114 350.1.13.10 4.2.7.2.686 [id number] [facility] 2021-06-06 10:40:00 2021-06-06 11:41:03 Outpatient ELVA OSMANHMINA [facility] [id number] [facility] 2021-06-06 00:00:00 2021-06-06 00:00:00 Orders Only Doctor Unassigned, Mark [facility] 1.20.114 350.1.13.10 4.2.7.2.686 [id number] [facility] 2021-05-31 00:00:00 2021-05-31 00:00:00 Patient Secure Msg Doctor Unassigned, Mark [facility] 1.2840.114 350.1.13.10 4.2.7.2.686 [id number] [facility] 2021-05-28 00:00:00 2021-05-28 00:00:00 Patient Secure Msg Randy Chauhan [facility] 1.2840.114 350.1.13.10 4.2.7.2.686 [id number] [facility] 2021-05-25 14:56:53 2021-05-25 23:59:00 Hospital Encounter Radiology [facility] 1.2840.114 350.1.13.10 4.2.7.2.686 [id number] [facility] 2021-05-25 14:51:00 2021-05-25 15:06:00 Master Control Technician Visit Pcp-Brandon Gonzáles [facility]AVILL[facility] 1.2840.114 350.1.13.10 4.2.7.2.686 [id number] [facility] 2021-05-25 14:56:53 2021-05-25 14:56:53 Outpatient R RADIOLOGY [facility] [id number] [facility] 2021-05-25 14:10:00 2021-05-25 14:51:51 Outpatient R UNKNOWN, ATTENDING [facility] [id number] [facility] 2021-05-25 14:10:00 2021-05-25 14:51:51 Outpatient R BRANDON RIVERA [facility] [id number] [facility] 2021-05-25 13:34:56 2021-05-25 14:51:51 Office Visit Randy Chauhan Unknown, Attending [facility] 1.20.114 350.1.13.10 4.2.7.2.686 [id number] [facility] 2021-05-25 13:34:56 2021-05-25 14:51:51 Office Visit Randy Chauhan Unknown, Attending [facility] 1.2840.114 350.1.13.10 4.2.7.2.686 [id number] [facility] 2021-05-25 09:00:00 2021-05-25 11:35:22 Outpatient R HUNTER MCPHERSONON [facility] [id number] [facility] 2021-05-25 09:00:00 2021-05-25 11:35:22 Outpatient R MCPHERSON JAVI [facility] [id number] [facility] 2021-05-25 09:00:00 2021-05-25 11:35:22 Office Visit Javi Mcpherson [facility] 1.2.840.114 350.1.13.10 4.2.7.2.686 [id number] [facility] 2021-05-25 08:38:11 2021-05-25 11:35:22 Office Visit Javi Mcpherson [facility] 1.2.840.114 350.1.13.10 4.2.7.2.686 [id number] [facility] 2021-05-25 08:38:11 2021-05-25 11:35:22 Office Visit Javi Mcpherson [facility] 1.2.840.114 350.1.13.10 4.2.7.2.686 [id number] [facility] 2021-05-25 09:00:00 2021-05-25 09:00:00 Outpatient R MCPHERSON JAVI [facility] [id number] [facility] 2021-05-23 10:40:00 2021-05-23 10:40:00 Outpatient R UNKNOWN, ATTENDING [facility] [id number] [facility] 2021-05-23 10:40:00 2021-05-23 10:40:00 Outpatient R UNKNOWN, ATTENDING [facility] [id number] [facility] 2021-05-19 17:42:00 2021-05-19 20:16:00 Emergency Lauri Curry [facility] 1.2.840.114 350.1.13.10 4.2.7.2.686 [id number] [facility] 2021-05-19 17:42:00 2021-05-19 20:16:00 Emergency X LAURI CURRY [facility] ERT [id number] [facility] 2021-05-18 13:10:00 2021-05-18 13:10:00 Outpatient R TAYLOR, ATTENDING [facility] [id number] [facility] 2021-05-16 13:45:00 2021-05-16 13:45:00 Outpatient R SIENNA RUFF [facility] [id number] [facility] 2021-04-23 14:52:31 2021-04-23 15:49:11 Routine Visit Marcio Guthrie [facility] 1.840.114 350.1.13.10 4.2.7.2.686 [id number] [facility] 2021-04-23 11:19:34 2021-04-23 15:47:11 Office Visit Javi Mcpherson [facility] 1.284.114 350.1.13.10 4.2.7.2.686 [id number] [facility] 2021-04-23 11:45:00 2021-04-23 11:45:00 Outpatient JAVI LAGUERRE [facility] [id number] [facility] 2021-04-06 14:35:35 2021-04-06 15:03:54 Nurse Visit Visit/Fp, [facility] 1.84.114 350.1.13.10 4.2.7.2.686 [id number] [facility] 2021-04-06 14:30:00 2021-04-06 15:03:54 Outpatient R SELINA BUCKLEY [facility] [id number] [facility] 2021-04-06 14:30:00 2021-04-06 14:30:00 Outpatient R [facility] [id number] [facility] 2021-03-27 15:30:00 2021-03-30 14:00:00 Inpatient P ABRAM LYNNE [facility] [id number] [facility] 2021-03-27 15:30:00 2021-03-30 14:00:00 Hospital Encounter Abram Lynne Todd [facility] 1.2.840.114 350.1.13.10 4.2.7.2.686 [id number] [facility] 2021-03-27 19:00:00 2021-03-27 21:05:00 Surgery Poncho Herminio F [facility] 1.2840.114 350.1.13.10 4.2.7.2.686 [id number] [facility] 2021-03-27 15:30:00 2021-03-27 15:30:00 Outpatient P ABRAM LYNNE [facility] [id number] [facility] 2021-03-27 14:09:50 2021-03-27 15:22:03 Routine Visit Selina Buckley [facility] 1.0.114 350.1.13.10 4.2.7.2.686 [id number] [facility] 2021-03-27 14:15:00 2021-03-27 14:15:00 Outpatient R SELINA BUCKLEY [facility] [id number] [facility] 2021-03-27 00:00:00 2021-03-27 00:00:00 Orders Only Doctor Unassigned, Mark [facility] 1.2840.114 350.1.13.10 4.2.7.2.686 [id number] [facility] 2021-03-21 14:30:00 2021-03-21 14:30:00 Outpatient R SELINA BUCKLEY [facility] [id number] [facility] 2021-03-16 00:00:00 2021-03-16 00:00:00 Patient Secure Msg [facility] 1.2840.114 350.1.13.10 4.2.7.2.686 [id number] [facility] 2021-03-15 00:00:00 2021-03-15 00:00:[facility] 1.840.114 350.1.13.10 4.2.7.2.686 [id number] [facility] 2021-03-12 15:12:14 2021-03-12 16:00:23 Routine Visit [facility] 1.840.114 350.1.13.10 4.2.7.2.686 [id number] [facility] 2021-03-12 15:45:00 2021-03-12 15:45:00 Outpatient R SELINA BUCKLEY [facility] [id number] [facility] 2021-03-03 00:00:00 2021-03-03 00:00:00 Patient Secure Msg Doctor Unassigned, Mark [facility] 1.840.114 350.1.13.10 4.2.7.2.686 [id number] [facility] 2021-03-01 00:00:00 2021-03-01 00:00:00 Telephone Josehien [facility] 1..840.114 350.1.13.10 4.2.7.2.686 [id number] [facility] 2021-02-28 00:00:00 2021-02-28 00:00:00 Nurse Triage Kala Roy [facility] 1.2840.114 350.1.13.10 4.2.7.2.686 [id number] [facility] 2021-02-27 00:00:00 2021-02-27 [facility] 1.2.840.114 350.1.13.10 4.2.7.2.686 [id number] [facility] 2021-02-27 00:00:00 2021-02-27 00:00:00 Refill [facility] 1.2840.114 350.1.13.10 4.2.7.2.686 [id number] [facility] 2021-02-26 15:30:00 2021-02-26 15:49:52 Outpatient SELINA CASTANO [facility] [id number] [facility] 2021-02-26 15:22:26 2021-02-26 15:49:52 Routine Visit Marcio Guthrie [facility] 1.2840.114 350.1.13.10 4.2.7.2.686 [id number] [facility] 2021-02-26 15:30:00 2021-02-26 15:30:00 Outpatient SELINA CASTANO [facility] [id number] [facility] 2021-02-26 15:30:00 2021-02-26 15:30:00 [facility] [id number] [facility] 2021-02-20 14:00:00 2021-02-20 14:00:00 Outpatient CRISTINA DEMPSEY [facility] [id number] [facility] 2021-02-20 14:00:00 2021-02-20 14:00:00 Outpatient CRISTINA DEMPSEY [facility] [id number] [facility] 2021-02-20 00:00:00 2021-02-20 00:00:00 Telephone Cristina Parra [facility] 1.114 350.1.13.10 4.2.7.2.686 [id number] [facility] 2021-02-15 14:00:00 2021-02-15 14:00:00 Outpatient R DASH MALCOLM [facility] [id number] [facility] 2021-02-15 13:29:53 2021-02-15 13:44:53 Office Visit Dash Malcolm [facility]..114 350.1.13.10 4.2.7.2.686 [id number] [facility] 2021-02-14 13:51:00 2021-02-14 21:15:00 Hospital Encounter Ondina Palacio [facility] 1.114 350.1.13.10 4.2.7.2.686 [id number] [facility] 2021-02-14 13:51:00 2021-02-14 21:15:00 Outpatient ONDINA WALLER [facility] [id number] [facility] 2021-02-14 13:51:00 2021-02-14 21:15:00 Outpatient ONDINA WALLER [facility] [id number] [facility] 2021-02-14 00:00:00 2021-02-14 00:00:00 Orders Only Doctor Unassigned, Mark [facility] 1.114 350.1.13.10 4.2.7.2.686 [id number] [facility] 2021-02-07 00:00:00 2021-02-07 00:00:00 Refill Cristina Parra [facility] SPEECH PROFESSOR [facility] 1..114 350.1.13.10 4.2.7.2.686 [id number] [facility] 2021-02-06 07:45:43 2021-02-06 08:00:43 Master Control Technician Visit Lab, Ang-Rmchp Mili Villegas [facility] SPEECH PROFESSOR [facility] 1..840.114 350.1.13.10 4.2.7.2.686 [id number] [facility] 2021-02-06 08:00:00 2021-02-06 08:00:00 Outpatient MILI COLLAZO [facility] [id number] [facility] 2021-02-06 08:00:00 2021-02-06 07:58:12 Outpatient MILI COLLAZO [facility] [id number] [facility] 2021-02-05 13:00:54 2021-02-05 15:47:28 Routine Visit Valeria [facility] 1..840.114 350.1.13.10 4.2.7.2.686 [id number] [facility] 2021-02-05 13:00:00 2021-02-05 13:00:00 Outpatient R CRISTINA PARRA [facility] [id number] [facility] 2021-02-02 00:00:00 2021-02-02 00:00:00 Telephone Valeria [facility] 1..840.114 350.1.13.10 4.2.7.2.686 [id number] [facility] 2021-01-31 11:00:00 2021-01-31 11:00:00 Outpatient R MARLYN PARRARIELLE [facility] [id number] [facility] 2021-01-25 00:00:00 2021-01-25 00:00:00 [facility]CH PROFESS[facility] 1..114 350.1.13.10 4.2.7.2.686 [id number] [facility] 2021-01-24 08:26:00 2021-01-24 08:33:08 Master Control Technician Visit [facility] Villeg[facility] SPEECH PROFESSOR [facility] 1..114 350.1.13.10 4.2.7.2.686 [id number] [facility] 2021-01-24 08:30:00 2021-01-24 08:30:00 Outpatient MILI COLLAZO [facility] [id number] [facility] 2021-01-19 14:00:00 2021-01-19 14:00:00 Outpatient CRISTINA DEMPSEY [facility] [id number] [facility] 2021-01-17 15:24:33 2021-01-17 16:07:47 Routine Visit Valeria [facility] 1.114 350.1.13.10 4.2.7.2.686 [id number] [facility] 2021-01-17 15:00:00 2021-01-17 15:00:00 Outpatient MARLYN DEMPSEYRIELLE [facility] [id number] [facility] 2021-01-17 00:00:00 2021-01-17 00:00:00 Orders Only Doctor Unassigned, Mark [facility] ..114 350.1.13.10 4.2.7.2.686 [id number] [facility] 2020-12-29 14:22:20 2020-12-29 14:54:37 Routine Visit Franny Bustillo Elana [facility] 1.114 350.1.13.10 4.2.7.2.686 [id number] [facility] 2020-12-29 13:45:00 2020-12-29 13:45:00 Outpatient SELINA CASTANO [facility] [id number] [facility] 2020-12-11 14:34:29 2020-12-11 15:29:17 Master Control Technician Visit Ultrasound, Herminio Suarez [facility] SPEECH PROFESSOR [facility] 1.2.840.114 350.1.13.10 4.2.7.2.686 [id number] [facility] 2020-12-11 14:45:00 2020-12-11 14:45:00 Outpatient Rodrigo [facility] [id number] [facility] 2020-12-04 00:00:00 2020-12-04 00:00:00 [facility] 1.2.840.114 350.1.13.10 4.2.7.2.686 [id number] [facility] 2020-12-03 00:00:00 2020-12-03 00:00:00 [facility] 1.2.840.114 350.1.13.10 4.2.7.2.686 [id number] [facility] 2020-12-01 15:38:20 2020-12-01 16:07:09 Routine [facility] 1.2.840.114 350.1.13.10 4.2.7.2.686 [id number] [facility] 2020-12-01 15:45:00 2020-12-01 15:45:00 Outpatient SELINA CASTANO [facility] [id number] [facility] 2020-11-14 00:00:00 2020-11-14 00:00:00 Telephone Darline Cheng [facility] [place] 1.2.840.114 350.1.13.10 4.2.7.2.686 [id number] [facility] 2020-11-13 10:07:51 2020-11-13 11:22:51 Master Control Technician Visit 1, [facility] Us Room Conrado Mcneil [facility] 1.2840.114 350.1.13.10 4.2.7.2.686 [id number] [facility] 2020-11-13 10:00:00 2020-11-13 10:00:00 Outpatient P [facility] [id number] [facility] 2020-11-08 00:00:00 2020-11-08 00:00:00 Patient Secure Msg Javi Mcpherson [facility] 1.2840.114 350.1.13.10 4.2.7.2.686 [id number] [facility] 2020-11-07 18:56:00 2020-11-07 21:35:[address] [facility] 1.2.840.114 350.1.13.10 4.2.7.2.686 [id number] [facility] 2020-11-03 16:15:21 2020-11-03 16:30:21 Master Control Technician [facility] 1.2.840.114 350.1.13.10 4.2.7.2.686 [id number] [facility] 2020-11-03 15:38:43 2020-11-03 16:07:59 [facility] 1.2840.114 350.1.13.10 4.2.7.2.686 [id number] [facility] 2020-11-03 15:45:00 2020-11-03 15:45:00 Outpatient MARLYN DEMPSEYRIELLE [facility] [id number] [facility] 2020-10-30 08:15:00 2020-10-30 08:15:00 Outpatient MARLYN DEMPSEYRIELLE [facility] [id number] [facility] 2020-10-18 15:48:54 2020-10-18 16:03:54 Telemedici ne Visit Darline Cheng Joseph W [facility] SPEECH PROFESSOR [facility]ERNAL [facility]ILD [facility] 1.840.114 350.1.13.10 4.2.7.2.686 [id number] [facility] 2020-10-18 09:00:00 2020-10-18 09:00:00 Outpatient JARED MCMAHAN [facility] [id number] [facility] 2020-10-18 00:00:00 2020-10-18 00:00:00 Orders Only Doctor Unassigned, Mark [facility] ..114 350.1.13.10 4.2.7.2.686 [id number] [facility] 2020-10-17 10:36:54 2020-10-17 11:50:40 Office Visit Javi Mcpherson [facility] ..114 350.1.13.10 4.2.7.2.686 [id number] [facility] 2020-10-17 10:00:00 2020-10-17 10:00:00 Outpatient JAVI LAGUERRE [facility] [id number] [facility] 2020-10-12 00:00:00 2020-10-12 00:00:00 Patient Outreach Maximus Villavicencio [facility] 1..114 350.1.13.10 4.2.7.2.686 [id number] [facility] 2020-10-02 10:34:30 2020-10-02 11:14:04 Routine Visit Valeria [facility] 1..114 350.1.13.10 4.2.7.2.686 [id number] [facility] 2020-10-02 10:15:00 2020-10-02 10:15:00 Outpatient R MARLYN PARRARIELLE [facility] [id number] [facility] 2020-09-22 13:00:00 2020-09-22 13:00:00 Outpatient R [facility] [id number] [facility] 2020-09-22 07:55:13 2020-09-22 08:25:13 Telemedici ne Visit Fellow, [facility] Abram Lynne [facility] 1..114 350.1.13.10 4.2.7.2.686 [id number] [facility] 2020-09-21 00:00:00 2020-09-21 00:00:00 Telephone Fellow, [facility] 1.0.114 350.1.13.10 4.2.7.2.686 [id number] [facility] 2020-09-20 00:00:00 2020-09-20 00:00:00 [facility] ..114 350.1.13.10 4.2.7.2.686 [id number] [facility] 2020-09-18 00:00:00 2020-09-18 00:00:00 Abstract [facility] 1.840.114 350.1.13.10 4.2.7.2.686 [id number] [facility] 2020-09-15 15:17:42 2020-09-15 15:47:42 Master Control Technician Visit Ultrasound, Nette Mattson [facility] SPEECH PROFESSOR [facility] 1.840.114 350.1.13.10 4.2.7.2.686 [id number] [facility] 2020-09-15 15:30:00 2020-09-15 15:30:00 Outpatient P NETTE CADET SANGEETA [facility] [id number] [facility] 2020-09-11 09:30:00 2020-09-11 09:30:00 Outpatient P [facility] [id number] [facility] 2020-09-04 13:30:00 2020-09-04 13:30:00 Outpatient R CRISTINA PARRA [facility] [id number] [facility] 2020-09-04 11:08:18 2020-09-04 11:32:19 Office Visit Javi Mcpherson [facility] 1.840.114 350.1.13.10 4.2.7.2.686 [id number] [facility] 2020-08-30 00:00:00 2020-08-30 00:00:00 Telephone Javi Mcpherson [facility] 1.840.114 350.1.13.10 4.2.7.2.686 [id number] [facility] 2020-08-28 14:46:00 2020-08-28 19:07:00 Emergency Juanjose Ross [facility] 1.840.114 350.1.13.10 4.2.7.2.686 [id number] [facility] 2020-08-28 00:00:00 2020-08-28 00:00:00 Orders Only Doctor Unassigned, Mark [facility] 1.2.840.114 350.1.13.10 4.2.7.2.686 [id number] [facility] 2020-08-23 13:30:00 2020-08-23 13:30:00 Outpatient JAVI LAGUERRE [facility] [id number] [facility] 2020-08-23 12:51:04 2020-08-23 13:06:04 Master Control Technician Visit [facility] Javi Mcpherson [facility] 1.2.840.114 350.1.13.10 4.2.7.2.686 [id number] [facility] 2020-07-31 12:45:19 2020-07-31 13:00:19 Master Control Technician Visit [facility] 1.2.840.114 350.1.13.10 4.2.7.2.686 [id number] [facility] 2020-07-31 12:31:15 2020-07-31 12:44:24 [facility] 1.2.840.114 350.1.13.10 4.2.7.2.686 [id number] [facility] 2020-07-31 10:00:00 2020-07-31 10:00:00 Outpatient MATTHEW LARA [facility] [id number] [facility] 2020-07-19 00:00:00 2020-07-19 00:00:00 Telephone Glenna Joeng [facility] 1.2.840.114 350.1.13.10 4.2.7.2.686 [id number] [facility] 2020-07-18 00:00:00 2020-07-18 00:00:00 Duc Ch [facility] 1.2.840.114 350.1.13.10 4.2.7.2.686 [id number] 2020-07-18 00:00:00 2020-07-18 00:00:00 [facility] 1.2.840.114 350.1.13.10 4.2.7.2.686 [id number] [facility] 2020-07-17 09:57:38 2020-07-17 10:40:11 Nurse Visit Visit, [facility] Dermatology Nurse [facility] 1.20.114 350.1.13.10 4.2.7.2.686 [id number] [facility] 2020-07-17 10:00:00 2020-07-17 10:00:00 Outpatient MATTHEW LARA [facility] [id number] [facility] 2020-07-13 12:45:00 2020-07-13 12:45:00 Outpatient R JAVI MCPHERSON [facility] [id number] [facility] 2020-07-13 11:27:26 2020-07-13 12:41:40 Master Control Technician [facility] 1.2.840.114 350.1.13.10 4.2.7.2.686 [id number] [facility] 2020-07-05 11:10:53 2020-07-05 11:25:53 Master Control Technician Visit [facility] Javi Mcpehrson [facility] 1.2.840.114 350.1.13.10 4.2.7.2.686 [id number] [facility] 2020-07-05 09:26:49 2020-07-05 11:10:38 Office Visit Gwendolyn Kaye [facility] 1.2.840.114 350.1.13.10 4.2.7.2.686 [id number] [facility] 2020-07-05 09:26:49 2020-07-05 11:10:38 Office Visit Gwendolyn Kaye [facility] 1.2840.114 350.1.13.10 4.2.7.2.686 [id number] 2020-07-05 09:30:00 2020-07-05 09:30:00 Outpatient JAVI LAGUERRE [facility] [id number] [facility] 2020-07-05 00:00:00 2020-07-05 00:00:00 Orders Only Doctor Unassigned, Mark [facility] 1.2840.114 350.1.13.10 4.2.7.2.686 [id number] [facility] 2020-06-28 10:00:00 2020-06-28 10:00:00 Outpatient CAROLYN MONSALVE [facility] [id number] [facility] 2020-06-06 20:09:00 2020-06-06 20:40:00 Emergency Alice Pena [facility] 1.2840.114 350.1.13.10 4.2.7.2.686 [id number] [facility] 2020-06-06 19:55:00 2020-06-06 19:55:00 Emergency X [facility] [id number] [facility] 2020-06-06 00:00:00 2020-06-06 00:00:00 Orders Only Doctor Unassigned, Mark [facility] 1.2840.114 350.1.13.10 4.2.7.2.686 [id number] [facility] 2019-06-17 14:42:45 2019-06-17 16:33:00 Emergency X LAURI CURRY [facility] ERT [id number] [facility] Results Test Description Test Time Test Comments Results Result Co [facility] (NA, K, CL, CO2, GLUCOSE, BUN, CREATININE, CA)2023-10-03 22:56:00* Test Item Value Reference Range Interpretation Comme nts NA (test code = 0654387126) 137 mmol/L 135-145 K (test code = 6591676964) 4.0 mmol/L 3.5-5.0 CL (test code = 3339244795) 107 mmol/L 98-108 CO2 TOTAL (test code = 1420581060) 24 mmol/L 23-31 AGAP (test code = 2456113724) 6 2-16 BUN (test code = 2793509350) 19 mg/dL 7-23 GLUCOSE (test code = 1006625815) 110 mg/dL 70-110 CREATININE (test code = 2160-0) 0.64 mg/dL 0.50-1.04 CALCIUM (test code = 8319885088) 8.7 mg/dL 8.6-10.6 eGFR (test code = 52005-0) 112.6 mL/min/1.73m2 CKD-EPI eGFR (20 21). Assuming creatinine has been stable day-to-day for at least three months, the eGFR indicates Category G1 (>= 90 mL/min/1.73 m2) [facility] with [id number] 22:54:01* Test Item Value Reference Range Interpretation Comme nts WBC (test code = 6690-2) 10.25 4.30-11.10 RBC (test code = 789-8) 4.56 3.93-5.25 HGB (test code = 718-7) 12.9 g/dL 11.6-15.0 HCT (test code = 4544-3) 40.4 % 35.7-45.2 MCV (test code = 787-2) 88.6 fL 80.6-95.5 MCH (test code = 785-6) 28.3 pg 25.9-32.8 MCHC (test code = 786-4) 31.9 g/dL 31.6-35.1 RDW-SD (test code = 01177-4) 46.0 fL 39.0-49.9 RDW-CV (test code = 788-0) 14.4 % 12.0-15.5 PLT (test code = 777-3) 271 166-358 MPV (test code = 46271-6) 10.1 fL 9.5-12.9 NRBC/100 WBC (test code = 6763205996) 0.0 0.0-10.0 NRBC x10^3 (test code = 3956317470) See_Comment [Automated messa ge] The system which generated this result transmitted reference range: 10*3/?L. The reference range was not used to interpret this result as normal/abnormal. GRAN MAT (NEUT) % (test code = 770-8) 58.8 % IMM GRAN % (test code = 3241663939) 0.50 % LYMPH % (test code = 736-9) 32.9 % MONO % (test code = 5905-5) 6.2 % EOS % (test code = 713-8) 1.1 % BASO % (test code = 706-2) 0.5 % GRAN MAT x10^3(ANC) (test code = 7790004123) 6.03 10*3/uL 1.88-7.09 IMM GRAN x10^3 (test code = 7254482066) 0.05 10*3/uL 0.00-0.06 LYMPH x10^3 (test code = 731-0) 3.37 10*3/uL 1.32-3.29 H MONO x10^3 (test code = 742-7) 0.64 10*3/uL 0.33-0.92 EOS x10^3 (test code = 711-2) 0.11 10*3/uL 0.03-0.39 BASO x10^3 (test code = 704-7) 0.05 10*3/uL 0.01-0.07 Lab Interpretation (test code = 50318-4) Abnormal [facility] 1 [id number] 22:06:13Ordering Physician: TAYLOR BYNUM Clinical Indication: cp Additional Clinical Information: Technical Limitations: None Comparison: None Technique: Portable chest obtained at 1608 hours Findings: Shallow inspiration. Cardiomegaly. Mild asymmetric rightinterstitial [facility]ateUn[facility] THRMPLAS [id number] 00:48:15* Test Item Value Reference Range Interpretation Comme nts APTT Patient (test code = 3173-2) 28 See_Comment [Automated message] The system which generated this result transmitted reference range: 23 - 38 Seconds. The reference range was not used to interpret this result as normal/abnormal. KASHIF (test code = KASHIF) The [facility] patient population mean normal value for aPTT is 30 seconds. Lab Interpretation (test code = 36382-7) Normal [facility] CenterPROTHROMBIN TIME / [id number] 00:46:14* Test Item Value Reference Range Interpretation Comme [facility] PROTIME PATIENT (test code = 5964-2) 13.4 See_Comment [Automated messa ge] The system which generated this result transmitted reference range: 12.0 - 14.7 Seconds. The reference range was not used to interpret this result as normal/abnormal. INR (test code = 6301-6) 1.1 Normal INR <1.1; Warfarin Therapeutic range 2.0 to 3.0 or 2.5 to 3.5, depending upon the indications. Lab Interpretation (test code = 87803-2) Normal [facility] CenterCOMP. METABOLIC PANEL (48920)2023-05-07 00:39:34* Test Item Value Reference Range Interpretation Comme nts NA (test code = 7241655618) 140 mmol/L 135-145 K (test code = 8239358306) 3.2 mmol/L 3.5-5.0 L CL (test code = 9235161400) 105 mmol/L 98-108 CO2 TOTAL (test code = 3953152479) 24 mmol/L 23-31 AGAP (test code = 4882347903) 11 2-16 BUN (test code = 8598337167) 11 mg/dL 7-23 GLUCOSE (test code = 7917147665) 114 mg/dL 70-110 H CREATININE (test code = 5416622567) 0.47 mg/dL 0.50-1.04 L TOTAL BILI (test code = 1017062397) 0.5 mg/dL 0.1-1.1 CALCIUM (test code = 4734373535) 8.7 mg/dL 8.6-10.6 T PROTEIN (test code = 0953394317) 7.6 g/dL 6.3-8.2 ALBUMIN (test code = 4244007246) 3.9 g/dL 3.5-5.0 ALK PHOS (test code = 9051307182) 99 U/L 34-122 ALTv (test code = 1742-6) 50 U/L 5-35 H AST(SGOT) (test code = 7840580038) 56 U/L 13-40 H eGFR (test code = 0918726046) 144.6 mL/min/1.73m2 KASHIF (test code = KASHIF) Association of Glomerular Filtration Rate (GFR) and Staging of Kidney Disease* + --+ --+ ------+| GFR (mL/min/1.73 m2) ?| With Kidney Damage ?| ?Without Kidney Damage+ --------+ --------+ +| ?>90 ?| ?Stage one ?| ? Normal ?+ ---+ ---+ -------+| ?60-89 ?| ?Stage two ?| ? Decreased GFR ? + --+ --+ ------+| ?30-59 ?| ?Stage three ?| ? Stage three ? + --+ --+ ------+| ?15-29 ?| ?Stage four ? | ? Stage four ?+ ---+ ---+ -------+| ?<15 (or dialysis) ? ?| ?Stage five ? | ? Stage five ?+ ---+ ---+ -------+ *Each stage assumes the associated GFR level has been in effect for at least three months. ?Stages 1 to 5, with or without kidney disease, indicate chronic kidney disease. Notes: Determination of stages one and two (with eGFR >59mL/min/1.73 m2) requires estimation of kidney damage for at least three months as defined by structural or functional abnormalities of the kidney, manifested by either:Pathological abnormalities or Markers of kidney damage (including abnormalities in the composition of the blood or urine or abnormalities in imaging tests). Lab Interpretation (test code = 96394-1) Abnormal [facility] CenterLIPASE2023-10-11 00:39:14* Test Item Value Reference Range Interpretation Comme nts LIPASE (test code = 5431979480) 154 U/L 0-220 Lab Interpretation (test cod e = 32911-0) Normal [facility] CenterCB WITH [id number] 00:25:48* Test Item Value Reference Range Interpretation Comme nts WBC (test code = 6690-2) 10.00 See_Comment [Automated [employer]] The system which generated this result transmitted reference range: 4.30 - 11.10 10*3/?L. The reference range was not used to interpret this result as normal/abnormal. RBC (test code = 789-8) 4.53 See_Comment [myEDmatcha 12Return] The system which generated this result transmitted reference range: 3.93 - 5.25 10*6/?L. The reference range was not used to interpret this result as normal/abnormal. HGB (test code = 718-7) 13.6 g/dL 11.6-15.0 HCT (test code = 4544-3) 40.3 % 35.7-45.2 MCV (test code = 787-2) 89.0 fL 80.6-95.5 MCH (test code = 785-6) 30.0 pg 25.9-32.8 MCHC (test code = 786-4) 33.7 g/dL 31.6-35.1 RDW-SD (test code = 10302-2) 44.6 fL 39.0-49.9 RDW-CV (test code = 788-0) 13.7 % 12.0-15.5 PLT (test code = 777-3) 329 See_Comment [myEDmatcha 12Return] The system which generated this result transmitted reference range: 166 - 358 10*3/?L. The reference range was not used to interpret this result as normal/abnormal. MPV (test code = 53371-2) 10.1 fL 9.5-12.9 NRBC/100 WBC (test code = 3857435999) 0.0 See_Comment [Automated Bluwan ssage] The system which generated this result transmitted reference range: 0.0 - 10.0 /100 WBCs. The reference range was not used to interpret this result as normal/abnormal. NRBC x10^3 (test code = 4612127093) See_Comment [Automated Follozege] The system which generated this result transmitted reference range: 10*3/?L. The reference range was not used to interpret this result as normal/abnormal. GRAN MAT (NEUT) % (test code = 770-8) 60.3 % IMM GRAN % (test code = 9058180133) 0.40 % LYMPH % (test code = 736-9) 31.3 % MONO % (test code = 5905-5) 6.0 % EOS % (test code = 713-8) 1.5 % BASO % (test code = 706-2) 0.5 % GRAN MAT x10^3(ANC) (test code = 4687420219) 6.03 10*3/uL 1.88-7.09 IMM GRAN x10^3 (test code = 1685791433) 0.04 10*3/uL 0.00-0.06 LYMPH x10^3 (test code = 731-0) 3.13 10*3/uL 1.32-3.29 MONO x10^3 (test code = 742-7) 0.60 10*3/uL 0.33-0.92 EOS x10^3 (test code = 711-2) 0.15 10*3/uL 0.03-0.39 BASO x10^3 (test code = 704-7) 0.05 10*3/uL 0.01-0.07 [facility] CenterPOCT [id number] 23:53:00* Test Item Value Reference Range Interpretation Comme [facility] POCT PREG (test code = 1605) Negative On board controls acceptable with C Line (test code = 3574) Yes POCT PREG LOT # (test code = 3575) [id number] POCT PREG TEST DATE ( test code = 3576) 2024-09-24 Lab Interpretation (test cod e = 41135-5) Normal [facility] CenterSUR[facility] PATHOLOG[facility] [id number] 18:13:10* Test Item Value Reference Range Interpretation Comme [facility] Case Report (test code = 9230584395) Surgical Pathology ?Case: [id number] ? Authorizing Provider: ?Marcos Rodriguez MD ?Collected: ? 04/25/2023 1313 ?Ordering Location: ? ? GI Endoscopy OR Department Received: ?04/28/2023 1017 ?Pathologist: ? Lee Glez MD PhD ?Specimen: ? ?STOMACH, Gastric forcep bxs - Eval for HPylori ? Final Diagnosis (test code = 2397039603) c5vjfBLuKMOjy3azIVIzuV FuZzEwMzNcZnRuYmpcdWMx ZWenhnEgSMntnQndCAM6IE BcEN2cgZpshTm2zIpuBLEn ozL5fZTpZVdjn3dvNVC8j4 mgkgtkQNXmHWpeSl0kyZYc nYbkXbIwGLWjWEl7wM10CC AldE5luAZdNWl3XWHyxRSh qfXfPcYxGCIzeXIsaAS4CD EsRQ0rdqniBBbaMVksFLOn yjZ6SPXuuUMcU4RyMGHwRP 2aazyzEXE0SAavRJJmLMD3 UrYrQLHxd9Jaimf2MwKucZ FyZFxwbGFpblxmczIwXHBh ecSMGwHWNI8YRIGNTXZUPK 4DG9y1KDHvhjRgNKFwHL1t I7ODHCOYBuRRGMLZL0RqJ0 dAGYNWXaZQPHQIG7eYH3qN HRRLYX0ZBDXwsYQyRFArOI AzPCSSFbBGMqEJW2KFMoBZ UF6XNQCSCPIDZVWxCQVAFc RJRklFRFxwYXIgICAgICAt CL2BZKfnCRcWJ1DEEV6MZ8 FOSVNNUyBJREVOVElGSUVE XHBhclxwYXJkXHBhciBHaW rrXIU6gbMDAK42hclbRHNz cGFyXHBhcmRccGFyfXtccn YbGGufi5QpG3FvBcUiUNvc bnNpXGRlZmxhbmcxMDMzXG J2ovNqGCSgVBrdOQUxGQrk Nc5cqSSokVfxAaRkFNEqm1 lrnvJVGQcbUiGpQ289XAYw CUplm5syo1XeITDrpYSwk4 S2ISJLnvpszNo9r9clZnLb OvA0pGWiHPjpA6cgrlXwoZ AqU7EhnVBxiQi7lKmbC51r a9Z4BevgC5poQUTkOJZkI6 LvAG1pXBJlRqy2YSD2SUH0 LCDeRVFnK3WkAQ8hIOTdoV AtNOb6d2vtkDpmQSKtMDP2 a8ceURnlnyG4BB3kan6igK x7o7cyuoQnCDOlWQZamYVM GTDgO2JdmAtiTs0wrBz1fF hnDfppRYV6Mnq6WQ5dke45 nbt5wKsqEOVwlxegTjO4NT pxJSLdvbmlEUz4IVsvVLFm jOO3DABzkLLxQ4JkFMMdCW 5afyb2ROY9YCgiAQQfNiD0 NDBcaGVhZGVyeTcyMFxmb2 02SKK6JqIvDT1fI2Mdr3A5 zK7zrNArJYUpmYHeIhLsDW Nlcm9peDDsWCrvo3FdPNJ9 osQ3fTOqsYBkMJEwHA85Gr ims4DxZnbbYOH5XIYwgoJu e6Len9qnYtTmuwHpH0llG5 JyZHJoZWFkXHBnYnJkcmZv q5Jth1VbcVLevSu1g4vdJO PdPIDzjZpzh8tzEFD0DOOo H7K2kCStw9nmTFreDULjrB G5asG3IONrtSWfW2KpbW2k MPOpCJ9ybip5a8jqXLX4NY tkRSDmHdG6cuV4TNCqqNTk IUBapImrFYduw451GPX3Ka TfGBRxo3YkT1CjuVeuI18y fCisR76vTJHieMtkhB6saV bufJ7jFjFtKcRmJNbeqRug bGFpblxmMVxmczIwXGxhbm fnBYEaBHcnM8lzGmNxQOAr uDfcNYwuu2TqYFMlGAEpTz xmczIwXHBhciBJIGhhdmUg kBNsl14kEIqwwFQwATOmMI krXDLetVjyr3ZjV7gjCV1a X5HtpMOklwNilhQcQGsuPI Cyk2k3gONuvAkrn7AtkQGv MT05igOlXDVlLSY2SKYwq8 cpDK66crffCeHrxN92qlQu voEiPHPtp6gmN2doxLVyd9 Lrc1CrcoBvSWqgm2YaHL4l cKYmbqvcuBW8CCJpfRNhgc WtasA7aUrwFSJhyR3olE9k bFepbC0jJcEoViMnTKdvFY 4uRMOdS7nxfFMzDTBhVMYi X7wjCzJixV2vkCkbRhetjf N5RBVrvq81 Clinical Information (test code = 7015730430) Abdominal pain, generalized [R10.84]1. Gastric forcep bxs - Eval for HPylori Gross Description (test code = 2083231952) e3llkOSxMWYddDKXZQH1LS ChEV3unQbbyEo3oOspGXNs yeC2rDPtNDthc9owYUO5z7 pmktOXZafkIDHsBZ0aZBhp WVOrBP9zBhQdKJPvJnCvXW BhcGVydzEyMjQwXHBhcGVy cJX1GNXzHR2vduntIAuoUG yhNRQrtqJ1LQSysGToC7Da NRNjSP3aajvnXHK6ZZTYXp epWu4wmAMamJyjJwIfIrEa YXJzZXQwXGZuaWwgQXJpYW u2mI7DXdbaKVD6NCIYLyhj VuqfzIwib0SoxJWjTGHpNQ xcaWQgNTEwMDAgXFxkYiBP YoBcFnK9Fnm3TVUzVyU6RY y3HQAHJOElWmjnQSC8NUR1 AJq4XKRbSC4oZWcnoWBxMC lmFkpjMAwmS294DFjgZURj W8CmZ5DbYHarXvEoMTlaGZ LwAWWvMZqpZZLxZ7DAAVWv CWD3XeYqJLShLTf8AXbeW3 VAHOHmYQGtUcJaUrP8AmR9 IOr8ZSAEZj5uGDqgHlViSK M7FAY7PRb7LiTlDNZpZcKr JYNqSXTsZGnzgWBdTA5qcO xzUOUlGA1MVGWyEWstLRQn UnFfZ4MVC7sRDC2uRTmdlL JjaFxmczIyXHBhciANClxw FWUuEM2WDDGiWYeqVQs7uw YvKMTnXqZxYVOjZ88xv2RI p9WkBJ5PDAc8baPxqlzogY 7lCKAjtfSbBWqVqZXsvJ5d jxBUXHzdYNYlI6QkfsRgDR ufEFWfep8cnLpqGDjlMlRb bGVkIHdpdGggdGhlIHBhdG txbrLjV3V6qeGpWJ0cLNBD IVYapW8rSXRtKKXlx0LbnB JbrMyqJ1ClhVZcYaBnn7Lo XMGiZsodPKM3JBisVn3bFK hfCCD2qD9fwCkfRjAjQ5N8 MNFaOFJgr21leFX9yyYnAd DzJOOqlkJuamHzF1KzKTLb i98frVI9jLFzaJNpCoAoJ5 3tkjVmNQxpReUqPF2jJLTn JSasTUdrTFM3YGO3ZUOcoM Vhh6moupyuGB41PIokVX3b NVdsQK6gHNGwZAdzVMXvG7 XpQ3G2ASnzGGGdQKWoqVGm wH3zavCwmpJgxQg7KVOzAE V4sREzgHlrATGxJcrmcVK9 RQGqWxJatwWyr4MxiOg9rJ PcRAzbCCWoyV2dyA2hIFSw XHBhciANClxwYXIgDQpcc2 EzMFxlcGljWHNhMzAgDQpK yQcfFBMXF2faiZZbUPajZH TEONkQP8CPLD1YXGGnyMSN PUY7UF1kFPaeCMMoJ1PzA8 PgwtY7i4gsaArrk8EdlUPn CU7kdHGbAR1XBJKvicTwFU p9 Disclaimer (test code = 5374739790) s1azbROvLDTvb6zgFQHowX FuZzEwMzNcZnRuYmpcdWMx OOatdqQyTQmmz0HcC5WvHh AwMFxhbnNpXGRlZmxhbmcx SYYiAKT6arWyVTFmQNhgVC IaZSsjFn5wrQQbuEdgFjGn XALyw1qmeqALFNafPaUfC5 87FZNpJJmcb3rff4GfKNUz eLTiu3U2GVBHakssbUt4qJ nlC63io1A6IelzB9rvPFMf ZGQxB7FqMF3wZBDtIxd9IN W8MRY2WNBzVKFtO3YvJC1e CDGtnIFhBEx1l7yrkTajDU VjYSK6t2zsNBlgjeFxYL4n qe2eoTm7y6lfrxGoYMXcVA SplYTJIDHpQ1FrwAgeSs5r rAz1bShuJoupLJL7Cub5HG 4mwj74qiw4bUaaMMDywmib UyB8UQyiBAPfbmcyBFw4VE sxYJWdaBR6HQGmcYIqU6Fr MNBcAH7qfab4SDM3LSkmLV TrNpL3RJMbgGLkSRHxjBuz MXvjw030MPU3TdIkCN4tQ6 Xbh6U4gV5bfVCgXEFtrVOe NfJdUAWrnd0eaESiYNhpi3 BnPYX8knC6xEUgeYScQKTq IO63Guoys2LoItcub0NvR6 4wgJH7BLdqt8orMM9nZeD0 rrJiPAtxm3zjsH1kIeC1ZX srTZ1bOX3qMMPjdV7qejxw XHBnYnJkcmhlYWRccGdicm GgSv7duNmzHRI1RQcuM3qq yX5cJwN9OZcaK1vjtA0sJV r2NBsmaRF1NHEcoO2zMG1q ejjep1wcOYkwVYkcMOYsdr X1zeJ7HDXnfLPqA9UygE4n AMXoFC4atqvck8oqQVZ9UW tcWDPnVRA0ZhReTKPux8Yf dgv6UcGtv0DroAAtZSujG9 8ca761SSAtmpRwT1kphJAf ewoowMOzgimlDGdusuJ0FA ReatEul2QjEXZaZKQ4YShf AFhfaOXzOMLwsDico1okT3 RscGFyXHBsYWluXGYxXGZz MjBcbGFuZzEwMzNcaGljaF keIHuzRzNfSHOmDBcfP6cy ZaGmQ3LuPYOcBuDvhKOtC8 ggVGhpcyByZXBvcnQgbWF5 DMcqS6z6MCHritFvaAw4me VjIxEnXBYcCIO1RAfenTWe HZNbs7RiwzhkpXEzIc7xpT FvEINfoQ7lNLTeHKJbNRxo PI5blRr3XESNxENxlORgZp DKOASnYF98dbPdIOJOdiyy a9O3UDekEGWbf8KxbPPoS3 agp4ZeICVlr70fNW0za2A7 p8vxAYE5LO7iv6DpHPJfvZ BibBUdAYTba5Dipsfdf5Yw VJJtudTii8JzICOlwaTjzC OfFJZviaCxlx0bjnVeAEKc ULGtK5NhcpyhtCnuhyCnGY Xrvt4rouGwILF3QSDSPRZf ULWbm5UllW7ekZVUVAP5yQ Krwb1lceLLoZUqEDJjia16 QWGiQL2sZ9klTJGdUIQbvd PvbRGft3MrCGXxbGZ4yRHd GA6IQfATj02lZLAcGRCTpj JoDSFgbUfpsSV3llY1rB4a IChGREEpLlx+IFRoZSBGRE BbMT6xguWbh0XiklUgrEbn PAJquTFne8ZmfCNwm9XboW kfx0BrmLFqtPCxAB8hIBEj clxwYXIgVVRNQiBMYWJvcm K8w6SkNRCuKPJoHPG5hEzt qxa5REHjmZ2oAZApE9ucld wkANzzSVByq8LwkX0ubDCB dOJjx9EoaPPzoPDXxINrXC 9kqqPtTRtYQXmXVSN4axNq VYRhv0JjSLgwL3nnZ49zuO pkeTi5vYF5LPF1iX7jQxo+ IFxwYXJccGFyIEFwcHJvcH ThIBUkhNmlfiYtZ3YcgoMt pF5swSLcviUxJJ3qNT9tD7 G6xSLyZNWitwUsp5lcIHae dmUgYmVlbiByZXZpZXdlZC Kak8NrOVuhEFB1EKbiwaIf bmNsdWRpbmcgSCZFLCBTcG UbnDMeMCU8YWkmocClbhIi EK7wzI7qeDizrX5mlLWfwU J6twnyZXTgRIIqbFxzKNQw XP5ylWfpbY4qCuYtQnMaFX xsDA2uFNGlQ2bdjOHqGUEh DGVkN5asPrHjcW1zgOylAW xjZjJcZnMyMFxwYXJccGFy XHBsYWluXGYxXGZzMjBcbG FuZzEwMzNcaGljaFxmMVxk MlYwYNAoOLrsR2hqMoLxW8 TcMSLhReSmeSAaG0hfLFni UNJ1ZGFpLT4exSVmDQ14xU Svm3tiVQmidKsxxc0fR16w qBMpERahwNsoIGHcq06dy2 QnOTRcmuNnpl8gZIKiahQ4 tS7pXUFjdDluCITifUCnLC Pso7BrJFtzoPYjraXwRQkp AYCqWKBboFEyhhB5keCquw AsknOoSWKrlTutYKWxv3Xn MDViIToid3Rdsd9htUDqFO XreqUAfUluwUOacO4mP2Zh KMXbAAPwxh5dWNPkzL6rVP mbv4JnxdjoGZHlHAMlLKXq nxPbap3lRYXtgLVVNS6TFL xitLWmg2AbscKxN8qTYWR4 NUQwNjYwMjgxKSBleGNlcH TpMPKgxv31LJWebJ6rfHcf DJWqqL4fgM5awFuqeP6cZy MvRsWfZJhaIC7oDNEpF5me jOWkZJUdSFExO6zcNpAsxH 9jaFxmMVxjZjJcZnMyMFxw YXJ9fQ== Embedded Images (test code = 7027210377) [facility] [id number] 18:13:10* Test Item Value Reference Range Interpretation Comme nts Case Report (test code = 1377563026) Surgical Pathology ?Case: [id number] ? Authorizing Provider: ?Marcos Rodriguez MD ?Collected: ? 04/25/2023 1313 ?Ordering Location: ? ? GI Endoscopy OR Department Received: ?04/28/2023 1017 ?Pathologist: ? Lee Glez MD PhD ?Specimen: ? ?STOMACH, Gastric forcep bxs - Eval for HPylori ? Final Diagnosis (test code = 0345642556) y6ofsNMnMRByd5naJDPhyT FuZzEwMzNcZnRuYmpcdWMx PLbwviXlUWwfkGigRSE0DJ SaVX4oiYvsoBx8qEhwFXQf slY0mVTwIIund6oaRGG1q2 hamslxMRCwGSaqZu6aaGNh dYyyGhOpOWUeLIo2pY86ML AntB7luSDxMAt3ZKHkvEEv btJjSeSeQATppZLnxLE4PZ KoAQ9vtncoUTasDXyhRDEt mtC2MIMjpXFeX0BxYITpPC 3jnpgmIYF1KBhcTLCvDVO5 WrDfVZZlm0Qzlqc8DeKzlP FyZFxwbGFpblxmczIwXHBh yjQNGbNGOE0VTRHJXWJPUV 5ZD5h2TBEdwdWrMHVvBG2p B7JYWPEPPrHMHNCYX0VvV0 iXNIDMSaVNQWSPR1xAY8bC BUGLIN9JZBMbhTSaIGAfLP HiKMRELvMXBpWFE7MBKuMW ES3RJZOOWSJWMDPdMDHYTe RJRklFRFxwYXIgICAgICAt WB4JEXtfJYuEF3QUHV6CJ2 FOSVNNUyBJREVOVElGSUVE XHBhclxwYXJkXHBhciBHaW bzMEG0mbMVHL67yakuOUNr cGFyXHBhcmRccGFyfXtccn FoDMroj3UcD5OpArXuOMhf bnNpXGRlZmxhbmcxMDMzXG H9woHpPWKpQBqkJQQrSNlh Vu6cbLLvsVtbBcOrTBTxf7 umfaTIYVsnDkWpC899HSNv RJblg7yst8HzLATmxFBkf2 P0KHDVyyqbkPp3e1fvWcMj JrR4eAXrSRdzW2jgcbZlcN KeU1BcnOFvxXr3dAvzL46c n0O4QlqpB2ebCWSeOLHgA2 SyHK4fQYCqNrz2VIX1QEZ8 VDJfJRTlZ4MlGS6mHJRueL XeAWl3a5yohYwgMFAjPCJ3 k3raHAcfrvC4OH8qqd4acS u0n6yvgyUnSPBqRAGyfBSQ TDGoO3DcmOtvUc6tnDf5tF apOnjrDSR6Ehg4QB2oqp44 dqj3bHchPZXzmdboXhN5JR ptFXCqszjxXTs2EPvbELFz kVP2UAMaiAAfT2EhDWLdKQ 2fxvn3OMU5CZgqKCPoKeK0 NDBcaGVhZGVyeTcyMFxmb2 76MHJ8GcEjDG4mR1Khd4I1 fV1feAJzUJJpzCWsKzDzWC Dmiq4orFKfOWrbq5XhQLS1 mgI5oDZpmJGeBZVrPU90Dx snw3DkDecgTRV9VLOeodBh f2Lmt5etZoBmloKhI3ggN3 JyZHJoZWFkXHBnYnJkcmZv l3Qmx0EouVXogQk9e9ngWZ KbVZUiqNyqa9fqBYA4MSEp V9U0tIErr5woIMxyZPUidM N6znA9MAVapVTjW9AbsU2y VWKhEC8edwm0j7iaYKX8QT shQHGrEkM9urW8FWKrqHZm UPGksZfcTUbwd219ZJL3Uo QnOXOrt6UhF8SnlJeuY89v kLnwI23sTKKhvSveqS0taS tiyO8pJuFzViGzIBxjwAlj bGFpblxmMVxmczIwXGxhbm tnSCRqEOwjX0iqBmVbCWQv kFncRSrwl2RjTWMxHBGwHg xmczIwXHBhciBJIGhhdmUg hHBcj98iEPftiLPlIISnKI wtXNAcbNycy6NrQ9jyYH3w M0VlwPFhraQgpdDwMItiJO Htd2a7ePGhzTowp0TnjTRj FH97kvZiMVXbVIQ8IPVsg5 leMP44fjrtKiFxfG69jjUq xfMuFJQum9vrK6ebrMQyu0 Blm3VzteVjTYewe4YxVE1h pEKxmpdypBD2RHPmqDXazu PbneB5aBdxHMYlgV6xyJ2m cLljeT8sYuUiBuIbCUmtVZ 8qHOMeC5dtfMPjKNZcFZBp X4zmKtUctO2krPvdHhdpbt D9NVApay63 Clinical Information (test code = 3312358710) Abdominal pain, generalized [R10.84]1. Gastric forcep bxs - Eval for HPylori Gross Description (test code = 9157946972) u8bznEUyKMZhsHWCJSZ6XG TvJQ1nlTzzwCk3wDylAKDi gnB4wLLdVWeav3gmFAZ1y7 coipPWYvgmKIWwTP2pBVqz QFNyXB5xZjHzRLXnEnYiIP BhcGVydzEyMjQwXHBhcGVy oIN9GUCvSU2bdjrfRPoxUA cdRQSypnZ6VOYhbEExZ6Qa PUKyJC5ydpzbITG4DUDZQj beZr0ejOCspDyzQgLzTaGs YXJzZXQwXGZuaWwgQXJpYW c9eY6ODcgmZZB5KWQYNgjz YfcalJped4AdgKUbKBKyXU xcaWQgNTEwMDAgXFxkYiBP BpFqYrF0Vzb1ADFsBqC8IE i5OPORAGDnWnjvHPY9XYY7 AHp9QOBwAH5xWQyfoTEoPT sfKnicTAsoL497GHoePMNc N2KgD8PqRJgqEnPrNUjkYV JfRZTbSSdyKMCbV0IFUSFk SYL4YnGyQHIhNMu8XQtoO1 YBKKRcQMCgAmTtEtK7OlI3 KTa5SGOGSr8jGNqbHoHyNS P9PWG6YAt1PtCaLGBzCuNx WNKhLDBsZLqmtFMkUA2vrS swSQOfHB9ESOPpCVchDHTl CwBiQ6JEW7nLEG7vEAbrhI JjaFxmczIyXHBhciANClxw RRJiOL6RVIFkBNdqSRj3ga XiAKFeBaBeYYDcH94or8WW b0McWY4XWCa4chRgbnqzuQ 7uTMUrssBfBFzXoLJxzK4l jeQLORsxVDXgW6WnncJdNI ejYRExka0dxHhlKKqfQdPd bGVkIHdpdGggdGhlIHBhdG izlwCqT4B0vcZfRG3pPOUM NRVwbN8jIXYpVLSqb3DvdF UjbQncG3WpkLNmXoEbk8Os GKWiHnceMNM6EMqgLw3lBK ooRUM1bX9jsDlwGcDcA9O5 QPVcDUXwi36pxRG5piXeRz HfBYBujcBmjyPcC9LgASRe h88xzDC4xARcmTElMuQmP2 4dyoEfDQxeLxYsVM2iYUSt MPmwCVdmFSM8CIP0PKLsaE Lbn1ikcikcUQ44GBioFZ0s JOfjFS9hNHApLFntDFToX6 DyI1I1WRmnMBXdJAHjdLZm cF7eqvMjbnDfvBa9SPQnNJ U0eCTjvCyhXQOkDfhoxKL0 JTEcAwRmhsQei6PaxFc7cR OiTUomEQRfpT5heR8yDCJo XHBhciANClxwYXIgDQpcc2 EzMFxlcGljWHNhMzAgDQpK qWzgPXCNC4dhfRWsQVdzAC DKMDsIO8JLBJ7HBSFiiRMI UWW2DC0rGYujKKFeI8CeP0 VfauD9k6yhhRaeo0MttNWk MO2ccEZyNC1DNMHdouShYO p9 Disclaimer (test code = [id number]) y8lffKTyNXZfw4eiLGPatV FuZzEwMzNcZnRuYmpcdWMx DUfeznFiXGsps7RqY4XjQy AwMFxhbnNpXGRlZmxhbmcx TZJfPET5zeGzMFWyFSgpCD GqZAhlAm3diFYzjBewNpZu TRDlw7pdnkJWLLwdHqUzP7 90FVFkKStdi5nma2WuXUIf fTWoi3U9JCOObhnzjVi8yU jgL68si8T3VlhdK0htJBJq ABKtR6HmQB9jYZBoBsf6PW U5JVC8DXUzJYIoW4RgOD9z JYHhkZMrTCb9r3cfaNptPS MzJYG4r4spLGeurdUzJC5l wx0xrRb6e9jafeAqCQTbNH DfdVFYMHTaM2ThtPugKg1l sSl7vShuSvykFLA7Lfz4EK 3mgh35muq0zDqfLPZvmvue GxJ0YVncNUAsqkeuMWr8CE ylNLFxqSF0XUPhlMKfK0Dr BYWoIR0enut8YPM1UXthIP EwRuJ5AOZuzEOvTTKycYck LWsct117DTK4EoQnPX3sG1 Lze4Y5wO8hkNOuLAJqhQVc LbRtQQKyyl5uaSQaSOoeu4 YhJMV3jqP0gSMsnURjIAMq PD20Tqngo7AjCiscu2ByZ3 9ngPI4AXnga5soMP9cTkG1 iwOoWNcbi2mtaT0oPpA2CJ smDS5fAE0xKQVnhA3wzsbm XHBnYnJkcmhlYWRccGdicm FmGq8ogHutAYN2NCzkW4ks jF0uIqS6UAvhI1mejH3iYL w8PXezaRD9JIKdmM3sKQ8p bxkot6lmUJwuPFdkATSqlh W9obI1KPScuHSiR9XfnM7o LPFiUO4jiihjs0kiACJ0UC cnTLAkXOI4ZiPjBVShd3Ep rqj3GdXxa5RerALuZRanX6 1em375UNDrgaKrL8uuiKQg uwfjeEKbcmpwENxlcjI8JN MfpzYov6UeXXSlKHL2BNth CXyomJGuYCFzeHwot4quS6 RscGFyXHBsYWluXGYxXGZz MjBcbGFuZzEwMzNcaGljaF vzLJktUrDhVATgKCreG5sh GgHzQ0NdFOGjHoUkjFStN6 ggVGhpcyByZXBvcnQgbWF5 OElkZ4i2NSMctzFnuGs0st UyPxEmZPOlBBR6HYxenDIc DKUfm0RkvqehhOLfSc9hcY VmVUTcnZ2rUGSzWGPaDWfn RP1khEd5NEGUfSAipONpEb VBRPEcSN43toKpQNHHwpjz a6V2KYjyERGdo2PgfOGhF4 ezg2DbXWZtj26wSU6ap7J6 z0srQYS5OJ0zf8BuZCDawV YtiNQhPNPhy2Qmtdypd5Dk YZMcukLyr0TfDPCnwcPwhC HoFKMqckRksn1tglWcBGVt PVMtN5LeuvihuCewhaXiVN Rlfh4jixQhVBD9XSKLLZNi GQFpd5BokL0ndRAWFKT9pY Vsap3fpgGZpXHeZHHxfr98 EJLiLG7fG7yvVNGcGMZyln RatWVzm2PhBRZbgJE0eOIb SG6PKzIRh81vYBPbARXXto VwKMNtwZvnlRS8ykO5kU8u IChGREEpLlx+IFRoZSBGRE NoDL7iqnPvt1HgbtZciFxa XWJccCFdq5VceDJuw7RhcO gbq1HbdAHseOOxIU6hYOPg clxwYXIgVVRNQiBMYWJvcm W0p5YyLZDcRVAzCAJ5oUfd tcl2BUCnvP2sETLhR6jjno llZEkcFMMzf3JviE8dtQFJ xYHud7ExqLAzhCJMeLFcDR 0bfpEqHEmLBCvMPHB3uwFc QNDcn8IdRVdyX7yjV56jyZ ytzFp4pWY6OOS2dF0kHtr+ IFxwYXJccGFyIEFwcHJvcH IcFLSclYxmntLqC3LvfgIa bT3pbFYcidEaWO4wFV8eG7 G2eOFaHXCmmgYlw7afZLar dmUgYmVlbiByZXZpZXdlZC Mgt2QnJNpnAQM0IGzegnWt bmNsdWRpbmcgSCZFLCBTcG MvdUUbYQT6TIrbvsZtbcZf BA6xeP6glRsmbX7ejRIxrZ S4atyiXMMnIHUjvQzdQIEj IM8lfQsnrI8aIyMjSxEuXT srFL0pNCAbP7fxzXMeHFTr GCUbQ8fcAkRjaO8anXfzTX xjZjJcZnMyMFxwYXJccGFy XHBsYWluXGYxXGZzMjBcbG FuZzEwMzNcaGljaFxmMVxk FzItNVNnNWxgE7bfVpHdZ6 TyOAUiJpScrZCfQ8spGUca DBS2YYRlWN9wdQFiLB92iY Joh2asBNwnhMouuo9aT90p uHEmWVqqeTrrPWJac86wo1 ItYCGlznNcch8nWYXczlU0 zO6bSLUylWhcIWXjyZGtRC Ihv9MkVUvlkLWxggBdBYgg QLNkYCDkxNIjrbO6fzYpha DnhuAoGJIliVmoYXEww1Ta MJRsOTuvo7Dudg8vpMGfYG EzrzFRpZloyJWgeY1gY5Jb UKPdYMWhdx0zIZWqaW3jWW wsb5IkcvgySKQnJBFtYUKn qsMmtq8yTULwoEYMZW0ZUK sdbDOfz9PzpwBnN8wCOGN4 NUQwNjYwMjgxKSBleGNlcH WiNMFwrm00GKLkzQ2duUjp LPDfcE3zpF5chDlgfU3hLg AjMbObLXwyDQ9bZPOkH2qe pZOmFQOyZSMcN0ndTdFqgF 9jaFxmMVxjZjJcZnMyMFxw YXJ9fQ== Embedded Images (test code = 8688658247) [facility] [id number] 17:55:00* Test Item Value Reference Range Interpretation Comme nts POCT PREG (test code = 1605) Negative On board controls acceptable with C Line (test code = 3574) Yes POCT PREG LOT # (test code = 3575) [id number] POCT PREG TEST DATE ( test code = 3576) Lab Interpretation (test cod e = 18116-0) [facility] [id number] 17:55:00* Test Item Value Reference Range Interpretation Comme nts POCT PREG (test code = 1605) Negative On board controls acceptable with C Line (test code = 3574) Yes POCT PREG LOT # (test code = 3575) [id number] POCT PREG TEST DATE ( test code = 3576) Lab Interpretation (test cod e = 57339-5) [facility] [id number] 17:55:00* Test Item Value Reference Range Interpretation Comme nts POCT PREG (test code = 1605) Negative On board controls acceptable with C Line (test code = 3574) Yes POCT PREG LOT # (test code = 3575) [id number] POCT PREG TEST DATE ( test code = 3576) Lab Interpretation (test cod e = 31236-4) [facility]. METABOLIC PANEL ([id number])2023-04-22 00:07:45* Test Item Value Reference Range Interpretation Comme nts NA (test code = 2876764349) 141 mmol/L 135-145 K (test code = 0237111007) 3.6 mmol/L 3.5-5.0 CL (test code = 7067321327) 106 mmol/L 98-108 CO2 TOTAL (test code = 5671878954) 25 mmol/L 23-31 AGAP (test code = 2251219233) 10 2-16 BUN (test code = 9668421456) 12 mg/dL 7-23 GLUCOSE (test code = 9927462611) 91 mg/dL 70-110 CREATININE (test code = 7654152218) 0.61 mg/dL 0.50-1.04 TOTAL BILI (test code = 7385264641) 0.9 mg/dL 0.1-1.1 CALCIUM (test code = 9182662984) 8.9 mg/dL 8.6-10.6 T PROTEIN (test code = 1367164889) 7.6 g/dL 6.3-8.2 ALBUMIN (test code = 3217614834) 4.0 g/dL 3.5-5.0 ALK PHOS (test code = 8033512446) 81 U/L 34-122 ALTv (test code = 1742-6) 62 U/L 5-35 H AST(SGOT) (test code = 6004055313) 98 U/L 13-40 H eGFR (test code = 2481566970) 107.0 mL/min/1.73m2 KASHIF (test code = KASHIF) Association of Glomerular Filtration Rate (GFR) and Staging of Kidney Disease* + --+ --+ ------+| GFR (mL/min/1.73 m2) ?| With Kidney Damage ?| ?Without Kidney Damage+ --------+ --------+ +| ?>90 ?| ?Stage one ?| ? Normal ?+ ---+ ---+ -------+| ?60-89 ?| ?Stage two ?| ? Decreased GFR ? + --+ --+ ------+| ?30-59 ?| ?Stage three ?| ? Stage three ? + --+ --+ ------+| ?15-29 ?| ?Stage four ? | ? Stage four ?+ ---+ ---+ -------+| ?<15 (or dialysis) ? ?| ?Stage five ? | ? Stage five ?+ ---+ ---+ -------+ *Each stage assumes the associated GFR level has been in effect for at least three months. ?Stages 1 to 5, with or without kidney disease, indicate chronic kidney disease. Notes: Determination of stages one and two (with eGFR >59mL/min/1.73 m2) requires estimation of kidney damage for at least three months as defined by structural or functional abnormalities of the kidney, manifested by either:Pathological abnormalities or Markers of kidney damage (including abnormalities in the composition of the blood or urine or abnormalities in imaging tests). Lab Interpretation (test code = 36917-3) [facility]07[facility]* Test Item Value Reference Range Interpretation Comme nts LIPASE (test code = 3216525034) 111 U/L 0-220 Lab Interpretation (test cod e = 93771-8) [facility]. METABOLIC PANEL ([id number])2023-04-22 00:07:45* Test Item Value Reference Range Interpretation Comme nts NA (test code = 0395134612) 141 mmol/L 135-145 K (test code = 0856828234) 3.6 mmol/L 3.5-5.0 CL (test code = 6701289330) 106 mmol/L 98-108 CO2 TOTAL (test code = 1542416107) 25 mmol/L 23-31 AGAP (test code = 5000368870) 10 2-16 BUN (test code = 0809159712) 12 mg/dL 7-23 GLUCOSE (test code = 2910414768) 91 mg/dL 70-110 CREATININE (test code = 0549265601) 0.61 mg/dL 0.50-1.04 TOTAL BILI (test code = 8789395389) 0.9 mg/dL 0.1-1.1 CALCIUM (test code = 4394523093) 8.9 mg/dL 8.6-10.6 T PROTEIN (test code = 3354508218) 7.6 g/dL 6.3-8.2 ALBUMIN (test code = 3205589258) 4.0 g/dL 3.5-5.0 ALK PHOS (test code = 3516691073) 81 U/L 34-122 ALTv (test code = 1742-6) 62 U/L 5-35 H AST(SGOT) (test code = 1332464932) 98 U/L 13-40 H eGFR (test code = 3201487646) 107.0 mL/min/1.73m2 KASHIF (test code = KASHIF) Association of Glomerular Filtration Rate (GFR) and Staging of Kidney Disease* + --+ --+ ------+| GFR (mL/min/1.73 m2) ?| With Kidney Damage ?| ?Without Kidney Damage+ --------+ --------+ +| ?>90 ?| ?Stage one ?| ? Normal ?+ ---+ ---+ -------+| ?60-89 ?| ?Stage two ?| ? Decreased GFR ? + --+ --+ ------+| ?30-59 ?| ?Stage three ?| ? Stage three ? + --+ --+ ------+| ?15-29 ?| ?Stage four ? | ? Stage four ?+ ---+ ---+ -------+| ?<15 (or dialysis) ? ?| ?Stage five ? | ? Stage five ?+ ---+ ---+ -------+ *Each stage assumes the associated GFR level has been in effect for at least three months. ?Stages 1 to 5, with or without kidney disease, indicate chronic kidney disease. Notes: Determination of stages one and two (with eGFR >59mL/min/1.73 m2) requires estimation of kidney damage for at least three months as defined by structural or functional abnormalities of the kidney, manifested by either:Pathological abnormalities or Markers of kidney damage (including abnormalities in the composition of the blood or urine or abnormalities in imaging tests). Lab Interpretation (test code = 83496-5) [facility]07[facility]45* Test Item Value Reference Range Interpretation Comme nts LIPASE (test code = 6138013530) 111 U/L 0-220 Lab Interpretation (test cod e = 07303-7) [facility]OLIC [facility] ([id number])2023-04-22 00:07:45* Test Item Value Reference Range Interpretation Comme nts NA (test code = 3491993772) 141 mmol/L 135-145 K (test code = 3020986246) 3.6 mmol/L 3.5-5.0 CL (test code = 1691653658) 106 mmol/L 98-108 CO2 TOTAL (test code = 0672089857) 25 mmol/L 23-31 AGAP (test code = 3500059795) 10 2-16 BUN (test code = 6231553300) 12 mg/dL 7-23 GLUCOSE (test code = 6672330426) 91 mg/dL 70-110 CREATININE (test code = 0993966476) 0.61 mg/dL 0.50-1.04 TOTAL BILI (test code = 7727126039) 0.9 mg/dL 0.1-1.1 CALCIUM (test code = 3182393686) 8.9 mg/dL 8.6-10.6 T PROTEIN (test code = 3636888874) 7.6 g/dL 6.3-8.2 ALBUMIN (test code = 4928383915) 4.0 g/dL 3.5-5.0 ALK PHOS (test code = 6630414273) 81 U/L 34-122 ALTv (test code = 1742-6) 62 U/L 5-35 H AST(SGOT) (test code = 4048842519) 98 U/L 13-40 H eGFR (test code = 0745686516) 107.0 mL/min/1.73m2 KASHIF (test code = KASHIF) Association of Glomerular Filtration Rate (GFR) and Staging of Kidney Disease* + --+ --+ ------+| GFR (mL/min/1.73 m2) ?| With Kidney Damage ?| ?Without Kidney Damage+ --------+ --------+ +| ?>90 ?| ?Stage one ?| ? Normal ?+ ---+ ---+ -------+| ?60-89 ?| ?Stage two ?| ? Decreased GFR ? + --+ --+ ------+| ?30-59 ?| ?Stage three ?| ? Stage three ? + --+ --+ ------+| ?15-29 ?| ?Stage four ? | ? Stage four ?+ ---+ ---+ -------+| ?<15 (or dialysis) ? ?| ?Stage five ? | ? Stage five ?+ ---+ ---+ -------+ *Each stage assumes the associated GFR level has been in effect for at least three months. ?Stages 1 to 5, with or without kidney disease, indicate chronic kidney disease. Notes: Determination of stages one and two (with eGFR >59mL/min/1.73 m2) requires estimation of kidney damage for at least three months as defined by structural or functional abnormalities of the kidney, manifested by either:Pathological abnormalities or Markers of kidney damage (including abnormalities in the composition of the blood or urine or abnormalities in imaging tests). Lab Interpretation (test code = 51017-8) [facility]07:45* Test Item Value Reference Range Interpretation Comme nts LIPASE (test code = 6455249005) 111 U/L 0-220 Lab Interpretation (test cod e = 60528-1) Normal [facility], [id number] 23:59:37* Test Item Value Reference Range Interpretation Comme nts PREG SERUM (test code = 3835842899) Negative KASHIF (test code = KASHIF) Less than 10 IU/L. ?If low titer or ectopic is suspected, resubmit specimen in 48-72 hours. [facility], [id number] 23:59:37* Test Item Value Reference Range Interpretation Comme nts PREG SERUM (test code = 8604282698) Negative KASHIF (test code = KASHIF) Less than 10 IU/L. ?If low titer or ectopic is suspected, resubmit specimen in 48-72 hours. [facility], [id number] 23:59:37* Test Item Value Reference Range Interpretation Comme nts PREG SERUM (test code = 4897248669) Negative KASHIF (test code = KASHIF) Less than 10 IU/L. ?If low titer or ectopic is suspected, resubmit specimen in 48-72 hours. [facility] WITH [id number] 23:49:04* Test Item Value Reference Range Interpretation Comme nts WBC (test code = 6690-2) 8.80 See_Comment [Automated messa ge] The system which generated this result transmitted reference range: 4.30 - 11.10 10*3/?L. The reference range was not used to interpret this result as normal/abnormal. RBC (test code = 789-8) 4.40 See_Comment [Automated messa ge] The system which generated this result transmitted reference range: 3.93 - 5.25 10*6/?L. The reference range was not used to interpret this result as normal/abnormal. HGB (test code = 718-7) 13.2 g/dL 11.6-15.0 HCT (test code = 4544-3) 38.8 % 35.7-45.2 MCV (test code = 787-2) 88.2 fL 80.6-95.5 MCH (test code = 785-6) 30.0 pg 25.9-32.8 MCHC (test code = 786-4) 34.0 g/dL 31.6-35.1 RDW-SD (test code = 90156-0) 44.9 fL 39.0-49.9 RDW-CV (test code = 788-0) 14.0 % 12.0-15.5 PLT (test code = 777-3) 288 See_Comment [Automated messa ge] The system which generated this result transmitted reference range: 166 - 358 10*3/?L. The reference range was not used to interpret this result as normal/abnormal. MPV (test code = 89227-4) 10.0 fL 9.5-12.9 NRBC/100 WBC (test code = 6964134105) 0.0 See_Comment [Automated me ssage] The system which generated this result transmitted reference range: 0.0 - 10.0 /100 WBCs. The reference range was not used to interpret this result as normal/abnormal. NRBC x10^3 (test code = 0162713928) See_Comment [Automated me ssage] The system which generated this result transmitted reference range: 10*3/?L. The reference range was not used to interpret this result as normal/abnormal. GRAN MAT (NEUT) % (test code = 770-8) 57.3 % IMM GRAN % (test code = 7004699726) 0.20 % LYMPH % (test code = 736-9) 34.7 % MONO % (test code = 5905-5) 6.0 % EOS % (test code = 713-8) 1.3 % BASO % (test code = 706-2) 0.5 % GRAN MAT x10^3(ANC) (test code = 3559129138) 5.05 10*3/uL 1.88-7.09 IMM GRAN x10^3 (test code = 2531152607) 0.00-0.06 LYMPH x10^3 (test code = 731-0) 3.05 10*3/uL 1.32-3.29 MONO x10^3 (test code = 742-7) 0.53 10*3/uL 0.33-0.92 EOS x10^3 (test code = 711-2) 0.11 10*3/uL 0.03-0.39 BASO x10^3 (test code = 704-7) 0.04 10*3/uL 0.01-0.07 [facility] WITH [id number] 23:49:04* Test Item Value Reference Range Interpretation Comme nts WBC (test code = 6690-2) 8.80 See_Comment [Automated messa ge] The system which generated this result transmitted reference range: 4.30 - 11.10 10*3/?L. The reference range was not used to interpret this result as normal/abnormal. RBC (test code = 789-8) 4.40 See_Comment [Automated messa ge] The system which generated this result transmitted reference range: 3.93 - 5.25 10*6/?L. The reference range was not used to interpret this result as normal/abnormal. HGB (test code = 718-7) 13.2 g/dL 11.6-15.0 HCT (test code = 4544-3) 38.8 % 35.7-45.2 MCV (test code = 787-2) 88.2 fL 80.6-95.5 MCH (test code = 785-6) 30.0 pg 25.9-32.8 MCHC (test code = 786-4) 34.0 g/dL 31.6-35.1 RDW-SD (test code = 78248-8) 44.9 fL 39.0-49.9 RDW-CV (test code = 788-0) 14.0 % 12.0-15.5 PLT (test code = 777-3) 288 See_Comment [Automated messa ge] The system which generated this result transmitted reference range: 166 - 358 10*3/?L. The reference range was not used to interpret this result as normal/abnormal. MPV (test code = 69634-2) 10.0 fL 9.5-12.9 NRBC/100 WBC (test code = 1785557376) 0.0 See_Comment [Automated me ssage] The system which generated this result transmitted reference range: 0.0 - 10.0 /100 WBCs. The reference range was not used to interpret this result as normal/abnormal. NRBC x10^3 (test code = 5824973273) See_Comment [Automated me ssage] The system which generated this result transmitted reference range: 10*3/?L. The reference range was not used to interpret this result as normal/abnormal. GRAN MAT (NEUT) % (test code = 770-8) 57.3 % IMM GRAN % (test code = 5131304937) 0.20 % LYMPH % (test code = 736-9) 34.7 % MONO % (test code = 5905-5) 6.0 % EOS % (test code = 713-8) 1.3 % BASO % (test code = 706-2) 0.5 % GRAN MAT x10^3(ANC) (test code = 2143611733) 5.05 10*3/uL 1.88-7.09 IMM GRAN x10^3 (test code = 8258314485) 0.00-0.06 LYMPH x10^3 (test code = 731-0) 3.05 10*3/uL 1.32-3.29 MONO x10^3 (test code = 742-7) 0.53 10*3/uL 0.33-0.92 EOS x10^3 (test code = 711-2) 0.11 10*3/uL 0.03-0.39 BASO x10^3 (test code = 704-7) 0.04 10*3/uL 0.01-0.07 [facility] WITH [id number] 23:49:04* Test Item Value Reference Range Interpretation Comme nts WBC (test code = 6690-2) 8.80 See_Comment [Automated [address]] The system which generated this result transmitted reference range: 4.30 - 11.10 10*3/?L. The reference range was not used to interpret this result as normal/abnormal. RBC (test code = 789-8) 4.40 See_Comment [Automated [address]] The system which generated this result transmitted reference range: 3.93 - 5.25 10*6/?L. The reference range was not used to interpret this result as normal/abnormal. HGB (test code = 718-7) 13.2 g/dL 11.6-15.0 HCT (test code = 4544-3) 38.8 % 35.7-45.2 MCV (test code = 787-2) 88.2 fL 80.6-95.5 MCH (test code = 785-6) 30.0 pg 25.9-32.8 MCHC (test code = 786-4) 34.0 g/dL 31.6-35.1 RDW-SD (test code = 26730-2) 44.9 fL 39.0-49.9 RDW-CV (test code = 788-0) 14.0 % 12.0-15.5 PLT (test code = 777-3) 288 See_Comment [Automated messa ge] The system which generated this result transmitted reference range: 166 - 358 10*3/?L. The reference range was not used to interpret this result as normal/abnormal. MPV (test code = 20275-9) 10.0 fL 9.5-12.9 NRBC/100 WBC (test code = 4736711548) 0.0 See_Comment [Automated me ssage] The system which generated this result transmitted reference range: 0.0 - 10.0 /100 WBCs. The reference range was not used to interpret this result as normal/abnormal. NRBC x10^3 (test code = 7559214459) See_Comment [Automated me ssage] The system which generated this result transmitted reference range: 10*3/?L. The reference range was not used to interpret this result as normal/abnormal. GRAN MAT (NEUT) % (test code = 770-8) 57.3 % IMM GRAN % (test code = 1015256391) 0.20 % LYMPH % (test code = 736-9) 34.7 % MONO % (test code = 5905-5) 6.0 % EOS % (test code = 713-8) 1.3 % BASO % (test code = 706-2) 0.5 % GRAN MAT x10^3(ANC) (test code = 1381710694) 5.05 10*3/uL 1.88-7.09 IMM GRAN x10^3 (test code = 6002122771) 0.00-0.06 LYMPH x10^3 (test code = 731-0) 3.05 10*3/uL 1.32-3.29 MONO x10^3 (test code = 742-7) 0.53 10*3/uL 0.33-0.92 EOS x10^3 (test code = 711-2) 0.11 10*3/uL 0.03-0.39 BASO x10^3 (test code = 704-7) 0.04 10*3/uL 0.01-0.07 [facility] WITH [id number] 01:21:02* Test Item Value Reference Range Interpretation Comme nts WBC (test code = 6690-2) 11.08 See_Comment [Automated messa ge] The system which generated this result transmitted reference range: 4.30 - 11.10 10*3/?L. The reference range was not used to interpret this result as normal/abnormal. RBC (test code = 789-8) 5.11 See_Comment [Automated messa ge] The system which generated this result transmitted reference range: 3.93 - 5.25 10*6/?L. The reference range was not used to interpret this result as normal/abnormal. HGB (test code = 718-7) 14.9 g/dL 11.6-15.0 HCT (test code = 4544-3) 44.9 % 35.7-45.2 MCV (test code = 787-2) 87.9 fL 80.6-95.5 MCH (test code = 785-6) 29.2 pg 25.9-32.8 MCHC (test code = 786-4) 33.2 g/dL 31.6-35.1 RDW-SD (test code = 92920-3) 46.4 fL 39.0-49.9 RDW-CV (test code = 788-0) 14.3 % 12.0-15.5 PLT (test code = 777-3) 263 See_Comment [Automated messa ge] The system which generated this result transmitted reference range: 166 - 358 10*3/?L. The reference range was not used to interpret this result as normal/abnormal. MPV (test code = 99767-4) 10.6 fL 9.5-12.9 NRBC/100 WBC (test code = 8595731244) 0.0 See_Comment [Automated [place] ssage] The system which generated this result transmitted reference range: 0.0 - 10.0 /100 WBCs. The reference range was not used to interpret this result as normal/abnormal. NRBC x10^3 (test code = 9952137232) See_Comment [Automated messa ge] The system which generated this result transmitted reference range: 10*3/?L. The reference range was not used to interpret this result as normal/abnormal. GRAN MAT (NEUT) % (test code = 770-8) 52.2 % IMM GRAN % (test code = 4270056148) 0.40 % LYMPH % (test code = 736-9) 39.3 % MONO % (test code = 5905-5) 6.7 % EOS % (test code = 713-8) 0.9 % BASO % (test code = 706-2) 0.5 % GRAN MAT x10^3(ANC) (test code = 6619650621) 5.80 10*3/uL 1.88-7.09 IMM GRAN x10^3 (test code = 6153336184) 0.04 10*3/uL 0.00-0.06 LYMPH x10^3 (test code = 731-0) 4.35 10*3/uL 1.32-3.29 H MONO x10^3 (test code = 742-7) 0.74 10*3/uL 0.33-0.92 EOS x10^3 (test code = 711-2) 0.10 10*3/uL 0.03-0.39 BASO x10^3 (test code = 704-7) 0.05 10*3/uL 0.01-0.07 Lab Interpretation (test code = 24261-6) [facility]normal [facility] [id number] 01:11:58* Test Item Value Reference Range Interpretation Comme nts TROPONIN I (test code = 1543070060) 0.006 ng/mL <=0.034 KASHIF (test code = KASHIF) Reference (Normal) Range (defined by the 99th percentile reference limit): <= 0.034 ng/mL Note: Cardiac troponin begins to rise 3-4 hours after the onset of ischemia. Repeat in 4-6 hours if the sample was drawn within 3-4 hours of the onset of the symptom and found normal. Diagnosis of myocardial injury is made with acute changes in cTn concentrations with at least one serial sample above the 99th percentile upper reference limit (URL), taken together with the patient's clinical presentation. Biotin has been reported to cause a negative bias, interpret results relative to patient's use of biotin. Lab Interpretation (test code = 02483-6) Normal [facility]OL[facility] ([id number])2023-03-12 01:01:21* Test Item Value Reference Range Interpretation Comme nts NA (test code = 5647023834) 139 mmol/L 135-145 K (test code = 5181934967) 3.9 mmol/L 3.5-5.0 CL (test code = 0629683769) 103 mmol/L 98-108 CO2 TOTAL (test code = 2315350643) 26 mmol/L 23-31 AGAP (test code = 3017046096) 10 2-16 BUN (test code = 6396127334) 8 mg/dL 7-23 GLUCOSE (test code = 7053759087) 92 mg/dL 70-110 CREATININE (test code = 6574712014) 0.62 mg/dL 0.50-1.04 TOTAL BILI (test code = 3276284255) 1.0 mg/dL 0.1-1.1 CALCIUM (test code = 3150423511) 9.2 mg/dL 8.6-10.6 T PROTEIN (test code = 8233782343) 8.9 g/dL 6.3-8.2 H ALBUMIN (test code = 1479249313) 4.3 g/dL 3.5-5.0 ALK PHOS (test code = 3536837812) 102 U/L 34-122 ALTv (test code = 1742-6) 68 U/L 5-35 H AST(SGOT) (test code = 7008877081) 86 U/L 13-40 H eGFR (test code = 8232410600) 105.1 mL/min/1.73m2 KASHIF (test code = KASHIF) Association of Glomerular Filtration Rate (GFR) and Staging of Kidney Disease* + --+ --+ ------+| GFR (mL/min/1.73 m2) ?| With Kidney Damage ?| ?Without Kidney Damage+ --------+ --------+ +| ?>90 ?| ?Stage one ?| ? Normal ?+ ---+ ---+ -------+| ?60-89 ?| ?Stage two ?| ? Decreased GFR ? + --+ --+ ------+| ?30-59 ?| ?Stage three ?| ? Stage three ? + --+ --+ ------+| ?15-29 ?| ?Stage four ? | ? Stage four ?+ ---+ ---+ -------+| ?<15 (or dialysis) ? ?| ?Stage five ? | ? Stage five ?+ ---+ ---+ -------+ *Each stage assumes the associated GFR level has been in effect for at least three months. ?Stages 1 to 5, with or without kidney disease, indicate chronic kidney disease. Notes: Determination of stages one and two (with eGFR >59mL/min/1.73 m2) requires estimation of kidney damage for at least three months as defined by structural or functional abnormalities of the kidney, manifested by either:Pathological abnormalities or Markers of kidney damage (including abnormalities in the composition of the blood or urine or abnormalities in imaging tests). Lab Interpretation (test code = 56324-6) [facility] 01:01:21* Test Item Value Reference Range Interpretation Comme nts LIPASE (test code = 6952210625) 108 U/L 0-220 Lab Interpretation (test cod e = 78415-4) Normal [facility] [id number] 11:11:03* Test Item Value Reference Range Interpretation Comme nts TROPONIN I (test code = 2353230618) 0.009 ng/mL <=0.034 KASHIF (test code = KASHIF) Reference (Normal) Range (defined by the 99th percentile reference limit): <= 0.034 ng/mL Note: Cardiac troponin begins to rise 3-4 hours after the onset of ischemia. Repeat in 4-6 hours if the sample was drawn within 3-4 hours of the onset of the symptom and found normal. Diagnosis of myocardial injury is made with acute changes in cTn concentrations with at least one serial sample above the 99th percentile upper reference limit (URL), taken together with the patient's clinical presentation. Biotin has been reported to cause a negative bias, interpret results relative to patient's use of biotin. Lab Interpretation (test code = 33194-4) Normal [facility] [id number] 02:10:36* Test Item Value Reference Range Interpretation Comme nts TROPONIN I (test code = 7474229300) 0.015 ng/mL <=0.034 KASHIF (test code = KASHIF) Reference (Normal) Range (defined by the 99th percentile reference limit): <= 0.034 ng/mL Note: Cardiac troponin begins to rise 3-4 hours after the onset of ischemia. Repeat in 4-6 hours if the sample was drawn within 3-4 hours of the onset of the symptom and found normal. Diagnosis of myocardial injury is made with acute changes in cTn concentrations with at least one serial sample above the 99th percentile upper reference limit (URL), taken together with the patient's clinical presentation. Biotin has been reported to cause a negative bias, interpret results relative to patient's use of biotin. Lab Interpretation (test code = 62794-2) Normal [facility]. METABOLIC PANEL ([id number])2023-02-03 01:27:17* Test Item Value Reference Range Interpretation Comme nts NA (test code = 1775519993) 139 mmol/L 135-145 K (test code = 0184532721) 3.8 mmol/L 3.5-5.0 CL (test code = 6017962379) 102 mmol/L 98-108 CO2 TOTAL (test code = 3639586464) 25 mmol/L 23-31 AGAP (test code = 4497870081) 12 2-16 BUN (test code = 8983624676) 15 mg/dL 7-23 GLUCOSE (test code = 5886992051) 126 mg/dL 70-110 H CREATININE (test code = 4968141796) 0.69 mg/dL 0.50-1.04 TOTAL BILI (test code = 5623237218) 1.0 mg/dL 0.1-1.1 CALCIUM (test code = 0571218709) 9.4 mg/dL 8.6-10.6 T PROTEIN (test code = 1580729735) 9.3 g/dL 6.3-8.2 H ALBUMIN (test code = 7447598638) 4.5 g/dL 3.5-5.0 ALK PHOS (test code = 2218389685) 135 U/L 34-122 H ALTv (test code = 1742-6) 112 U/L 5-35 H AST(SGOT) (test code = 1451582074) 201 U/L 13-40 H eGFR (test code = 5895596452) 92.9 mL/min/1.73m2 KASHIF (test code = KASHIF) Association of Glomerular Filtration Rate (GFR) and Staging of Kidney Disease* + --+ --+ ------+| GFR (mL/min/1.73 m2) ?| With Kidney Damage ?| ?Without Kidney Damage+ --------+ --------+ +| ?>90 ?| ?Stage one ?| ? Normal ?+ ---+ ---+ -------+| ?60-89 ?| ?Stage two ?| ? Decreased GFR ? + --+ --+ ------+| ?30-59 ?| ?Stage three ?| ? Stage three ? + --+ --+ ------+| ?15-29 ?| ?Stage four ? | ? Stage four ?+ ---+ ---+ -------+| ?<15 (or dialysis) ? ?| ?Stage five ? | ? Stage five ?+ ---+ ---+ -------+ *Each stage assumes the associated GFR level has been in effect for at least three months. ?Stages 1 to 5, with or without kidney disease, indicate chronic kidney disease. Notes: Determination of stages one and two (with eGFR >59mL/min/1.73 m2) requires estimation of kidney damage for at least three months as defined by structural or functional abnormalities of the kidney, manifested by either:Pathological abnormalities or Markers of kidney damage (including abnormalities in the composition of the blood or urine or abnormalities in imaging tests). Lab Interpretation (test code = 77044-5) [facility] 01:27:17* Test Item Value Reference Range Interpretation Comme nts LIPASE (test code = 9733210923) 69 U/L 0-220 Lab Interpretation (test cod e = 07025-7) Normal [facility] WITH [id number] 01:17:35* Test Item Value Reference Range Interpretation Comme nts WBC (test code = 6690-2) 13.07 See_Comment H [Automated [address] [employer]Return] The system which generated this result transmitted reference range: 4.30 - 11.10 10*3/?L. The reference range was not used to interpret this result as normal/abnormal. RBC (test code = 789-8) 5.26 See_Comment H [Automated messa ge] The system which generated this result transmitted reference range: 3.93 - 5.25 10*6/?L. The reference range was not used to interpret this result as normal/abnormal. HGB (test code = 718-7) 15.1 g/dL 11.6-15.0 H HCT (test code = 4544-3) 46.1 % 35.7-45.2 H MCV (test code = 787-2) 87.6 fL 80.6-95.5 MCH (test code = 785-6) 28.7 pg 25.9-32.8 MCHC (test code = 786-4) 32.8 g/dL 31.6-35.1 RDW-SD (test code = 43602-2) 47.7 fL 39.0-49.9 RDW-CV (test code = 788-0) 14.9 % 12.0-15.5 PLT (test code = 777-3) 326 See_Comment [Automated messa ge] The system which generated this result transmitted reference range: 166 - 358 10*3/?L. The reference range was not used to interpret this result as normal/abnormal. MPV (test code = 17773-0) 9.6 fL 9.5-12.9 NRBC/100 WBC (test code = 7266934171) 0.0 See_Comment [Automated [employer] ssage] The system which generated this result transmitted reference range: 0.0 - 10.0 /100 WBCs. The reference range was not used to interpret this result as normal/abnormal. NRBC x10^3 (test code = 6202740112) See_Comment [Automated messa ge] The system which generated this result transmitted reference range: 10*3/?L. The reference range was not used to interpret this result as normal/abnormal. GRAN MAT (NEUT) % (test code = 770-8) 59.7 % IMM GRAN % (test code = 9069813679) 0.30 % LYMPH % (test code = 736-9) 33.4 % MONO % (test code = 5905-5) 5.3 % EOS % (test code = 713-8) 0.8 % BASO % (test code = 706-2) 0.5 % GRAN MAT x10^3(ANC) (test code = 1083074413) 7.80 10*3/uL 1.88-7.09 H IMM GRAN x10^3 (test code = 7520791094) 0.04 10*3/uL 0.00-0.06 LYMPH x10^3 (test code = 731-0) 4.37 10*3/uL 1.32-3.29 H MONO x10^3 (test code = 742-7) 0.69 10*3/uL 0.33-0.92 EOS x10^3 (test code = 711-2) 0.10 10*3/uL 0.03-0.39 BASO x10^3 (test code = 704-7) 0.07 10*3/uL 0.01-0.07 Lab Interpretation (test code = 37159-5) Abnormal [facility] INHP2162-94-10 00:43:00* Test Item Value Reference Range Interpretation Comme nts POCT PREG (test code = 1605) Negative On board controls acceptable with C Line (test code = 3574) Yes POCT PREG LOT # (test code = 3575) [id number] POCT PREG TEST DATE ( test code = 3576) 07-09-2024 Lab Interpretation (test cod e = 83647-5) Normal [facility] MOLECULAR [id number] 19:47:14* Test Item Value Reference Range Interpretation Comme nts POCT Molecular FluA (test co de = 29171-6) Negative Negative POCT Molecular FluB (test co de = 72622-2) Negative Negative Lab Interpretation (test cod e = 02160-6) Normal [facility] MOLECULAR [id number] 19:47:14* Test Item Value Reference Range Interpretation Comme nts POCT Molecular FluA (test co de = 46020-1) Negative Negative POCT Molecular FluB (test co de = 98700-1) Negative Negative Lab Interpretation (test cod e = 42262-2) Normal [facility] MOLECULAR [id number] 19:47:14* Test Item Value Reference Range Interpretation Comme nts POCT Molecular FluA (test co de = 68859-1) Negative Negative POCT Molecular FluB (test co de = 32385-0) Negative Negative Lab Interpretation (test cod e = 73326-3) [id number] 19:47:14* Test Item Value Reference Range Interpretation Comme nts POCT Molecular FluA (test co de = 37954-1) Negative Negative POCT Molecular FluB (test co de = 36460-5) Negative Negative Lab Interpretation (test cod e = 16800-8) Normal [facility] History and Physical Notes Date/Time Note Provider Source 2023-02-25 23:16:40 5089-23-85U10:16:40F ormatting of this note is different from the original.[facility] Hospitalist Admission H&P Date of Service: 3CHIEF COMPLAINT: Left-sided weakness and sudden loss of vision; this resolved. Also with persistent abdominal pain after eating x1 monthHISTORY OF PRESENT ILLNESSRed Slater is a 43 year old female who presents with sudden loss of vision and weakness on the left side of her face, upper extremity, and lower extremity. She came into the emergency room for further evaluation. She was actually with her son and she slumped to the side of the door when this occurred. Her mother is watching her daughter. She has had extensive work-up in the emergency room which is unremarkable. We will get an MRI to further evaluate. Patient also has been complaining of abdominal pain for the last month. She states she is not able to hardly eat anything. Even when she eats soup she started getting severe abdominal pain. She is not really sure exactly was causing the pain so she wanted to come to the hospital for further evaluation. She states she has had a history of gallstone. She also has been told that she has lesions on her kidneys as well as fatty liver disease.She states she has a history of hypertension and anxiety disorder. The only medicine that works for her hypertension is hydrochlorothiazide. She tends to have symptoms with the other medications. She will be admitted to the hospital for further evaluation.PAST MEDICAL HISTORY Past Medical History: Diagnosis Date Abnormal Pap smear 2002 unknown result Abnormal uterine bleeding Blood transfusion, without reported diagnosis 1985 during surgery HTN (hypertension) PID (pelvic inflammatory disease) Sneddon-Gonzalez disease PAST SURGICAL HISTORYPast Surgical History: Procedure Laterality Date SECTION N/A 03/27/2021 Surgeon: Herminio Isaac MD; Location: Labor and Delivery OR Location-[place] DRAINAGE LYMPH NODE,SIMPLE 1986 TUBAL LIGATION N/A 03/27/2021 Surgeon: Herminio Isaac MD; Location: Labor and Delivery OR Location-[place] ALLERGIESNo Known AllergiesMEDICATIONSCurrent home medication list reviewed:Current Discharge Medication List STOP taking these medications dicyclomine 20 mg tablet Comments: Reason for Stopping: pantoprazole (PROTONIX) 40 mg EC tablet Comments: Reason for Stopping: FAMILY HISTORYFamily History Problem Relation Age of Onset Diabetes Mother Heart Father Diabetes Father Hypertension Father SOCIAL HISTORYSocial History Socioeconomic History Marital status: Tobacco Use Smoking status: Former Passive exposure: Past Smokeless tobacco: Former Quit date: 12/27/2011 Substance and Sexual Activity Alcohol use: Yes Drug use: No Comment: hx of marijuana and cocaine abuse-clean x 3 years Sexual activity: Yes Partners: Male control/protection: None Comment: last had sex in 2010 REVIEW OF [id number] systems negative except per HPIPHYSICAL EXAMINATIONBP (!) 153/93 | Pulse 89 | Temp 36.4 ?C (97.6 ?F) | Resp 18 | Ht 1.651 m (5' 5") | Wt 165.5 kg (364 lb 12.8 oz) | LMP 02/02/2023 | SpO2 94% | BMI 60.71 kg/m? General: No acute distressHEENT: Normal oral mucosa, anicteric sclerae, NCATCardiovascular: RRRLungs: Symmetric expansion, CTABAbdomen: Soft, NTNDMusculoskeletal: No synovitis, normal muscle massGenitourinary: NormalSkin: No rash, lesionsNeuro: AAOx3, no focal deficits; no pronator driftPsych: Normal affectLABS - reviewed pertinent labs as below:CBC BMP PT/INR WBC x10^3 (/uL) Date Value 12/02/2014 10.6 WBC (10*3/?L) Date Value 02/25/2023 8.84 NA Date Value 02/25/2023 138 mmol/L 12/02/2014 142 MMOL/L No results found for: "PT" RBC x10^6 (/uL) Date Value 12/02/2014 4.45 RBC (10*6/?L) Date Value 02/25/2023 4.83 K Date Value 02/25/2023 3.8 mmol/L 12/02/2014 4.4 MMOL/L INR (no units) Date Value 02/25/2023 1.1 PLT x10^3 (/uL) Date Value 12/02/2014 329 PLT (10*3/?L) Date Value 02/25/2023 256 CALCIUM Date Value 02/25/2023 8.7 mg/dL 12/02/2014 9.2 MG/DL HGB Date Value 02/25/2023 14.2 g/dL 12/02/2014 12.0 G/DL CL Date Value 02/25/2023 105 mmol/L 12/02/2014 103 MMOL/L aPTT HCT (%) Date Value 02/25/2023 41.5 12/02/2014 37.7 BUN Date Value 02/25/2023 10 mg/dL 12/02/2014 21 MG/DL APTT Patient (Seconds) Date Value 02/25/2023 26 CREATININE Date Value 02/25/2023 0.72 mg/dL 12/02/2014 0.72 MG/DL IMAGING - reviewed, pertinent results as below: Hospital Encounter on 02/25/23 CT ACUTE STROKE ANGIOGRAM NECK Narrative EXAM: CT STROKE ANGIOGRAM NECK, EXAM: CT STROKE ANGIOGRAM HEADHISTORY: Neuro deficit, acute, stroke suspected Rad: please obtain POCTcreatinine prior to CTA head/neck. History obtained from [facility]: "Pt wasmaking lunch approx 1400 when she started to feel dizzy, diaphoretic withchest pressure. [place] like she was going to pass out and startedhyperventilating"TECHNIQUE: CTA of the head and neck was performed after the uncomplicatedadministration of intravenous contrast. Coronal and sagittal reformats wereobtained. COMPARISON: Same day CT head. No prior CT angiograms are available forcomparison.FINDINGS: CTA Neck: The aorta has three-vessel arch anatomy and the arch vessels are patent.The subclavian arteries are patent.The common carotid, carotid bulb/ICA origins, and cervical ICA are widelypatent. Both common carotids transverse a retropharyngeal course.The codominant vertebral arteries originate from the subclavian arteriesare patent throughout the neck.CTA Head:The vertebral arteries are patent. Both PICA origins are seen. The basilarartery is normal in caliber and patent. The superior cerebellar arteriesare patent. Both ROLL THREADER OPERATOR are widely patent. No sizable P-comm is visualized.The intracranial ICAs are patent. An anterior communicating artery ispresent. The BETY and MCA are widely patent.No high-grade stenosis or aneurysm is visualized. The dural venous sinusesare well opacified. Impression Unremarkable CT angiogram of the head and neck.Preliminary Report Dictated by Resident: Michael Bianchi MD., have reviewed this study and agree with the abovereport. CT ACUTE STROKE ANGIOGRAM HEAD Narrative EXAM: CT STROKE ANGIOGRAM NECK, EXAM: CT STROKE ANGIOGRAM HEADHISTORY: Neuro deficit, acute, stroke suspected Rad: please obtain POCTcreatinine prior to CTA head/neck. History obtained from [facility]: "Pt wasmaking lunch approx 1400 when she started to feel dizzy, diaphoretic withchest pressure. [place] like she was going to pass out and startedhyperventilating"TECHNIQUE: CTA of the head and neck was performed after the uncomplicatedadministration of intravenous contrast. Coronal and sagittal reformats wereobtained. COMPARISON: Same day CT head. No prior CT angiograms are available forcomparison.FINDINGS: CTA Neck: The aorta has three-vessel arch anatomy and the arch vessels are patent.The subclavian arteries are patent.The common carotid, carotid bulb/ICA origins, and cervical ICA are widelypatent. Both common carotids transverse a retropharyngeal course.The codominant vertebral arteries originate from the subclavian arteriesare patent throughout the neck.CTA Head:The vertebral arteries are patent. Both PICA origins are seen. The basilarartery is normal in caliber and patent. The superior cerebellar arteriesare patent. Both ROLL THREADER OPERATOR are widely patent. No sizable P-comm is visualized.The intracranial ICAs are patent. An anterior communicating artery ispresent. The BETY and MCA are widely patent.No high-grade stenosis or aneurysm is visualized. The dural venous sinusesare well opacified. Impression Unremarkable CT angiogram of the head and neck.Preliminary Report Dictated by Resident: Michael Bianchi MD., have reviewed this study and agree with the abovereport. CT ACUTE STROKE HEAD WO CONTRAST Narrative CT STROKE HEAD WO CONTRASTHISTORY: Neuro deficit, acute, stroke suspected. Patient presented withdizziness, diaphoresis and chest pressure.COMPARISON: NoneTECHNIQUE: Noncontrast axial images of the head, with coronal and sagittalreformats.FINDINGS:The ventricles and cerebral sulci are normal in caliber and configuration.No hydrocephalus, midline shift or pathological extra-axial fluidcollection is present. The basal cisterns are unremarkable.There is no acute intracranial hemorrhage or significant mass effect. Noparenchymal attenuation abnormality. The morrow-white matter differentiationis preserved.The ASPECTS score is estimated to be 10.The mastoid air cells and paranasal air sinuses are clear. The calvariumand central skull base are unremarkable. Impression No acute intracranial hemorrhage or mass effect.Preliminary Report Dictated by Resident: Michael Moraes MD., have reviewed this study and agree with the abovereport. ASSESSMENT:1. Vsion loss and Left-sided weakness2. Abdominal pain3. Chest pain rule out acute coronary syndrome4. History of hypertension5. History of anxiety disorder6. History of cholelithiasis7. Fatty liver disease8. Morbid obesityPLAN:1. Gentle hydration2. MRI of the brain3. Rule out for acute coronary syndrome4. Work-up abdominal pain5. Strict blood pressure control6. GI DVT prophylaxisPatient's acute finding was left-sided weakness and vision loss. Plan is for MRI of the brain. Patient also had some vague chest pain and she had significant abdominal pain that prevents her from eating well. She has not really lost a lot of weight however. Chest pain is being worked up with serial troponins and EKG. Abdominal pain can be further worked up as an outpatient. Patient will be admitted for observation.DVT prophylaxis: enoxaparinStress ulcer prophylaxis: pantoprazoleCode status: 40Advanced Care Planning (Z71.89)Above assessment and plan discussed at length with patient, patient expressed full understanding. Questions and concerned addressed.Surrogate decision maker: SpouseLevel of care expected after discharge: HomeTime spent: 3 minutes discussing the advanced care planSmoking Cessation: (Z71.6)Tobacco user?: noPatient will require observationTexas OIL PIPE INSPECTOR HELPER [place] [address]-0Kshzcod and physical jdhgDC6351-45-75W98:11:54History and physical noteTXT1.2.840.130726.1.13.104.2.7.2.41222 9|[id number] for patient qqeu69788-0Kbncypb and physical note[id number] LISANNHNKRBEOQGQBEKC2989-49-49R56:11:541.2.840 .883461.1.72.3.15|1.2.840.668209.1.13.104. 2.7.2.727879_[id number] [facility] Notes Date/Time Note Provider Source 2024-01-26 09:24:13 2487-47-08F13:24:13 Form placed in provider folder for review. 96929-7Zezjncnfs encounter HxrvID7312-11-76B20:24:31Telephone encounter NoteTXT1.2.840.942993.1.13.104.2.7.2.7 05890|[id number] for patient ozfv24813-6UapoJKRISIDCKNOZngmyzfxd C-CDA narrative [id number] M Serrano MA[id number] EBTVEONBQNGFDOPCQLYR8282-29-84L28:24:3 11.2.840.782106.1.72.3.15|1.2.840.1143 50.1.13.104.2.7.2.727879_[id number] Jailyn De La O MA [facility] 2024-01-26 09:14:17 8076-03-27P61:14:17 Images from the original note were not included. 64941-9Ekrwheqde encounter SbjkPQ6653-35-64M49:15:37Telephone encounter NoteTXT1.2.840.976187.1.13.104.2.7.2.7 23827|[id number] for patient etxs32776-6GhjfJHJJHZXTGXMMzgiaxexw C-CDA narrative [id number] Williams[id number] LIZWBUXYNUMWKLYYMPIR7833-91-80G11:15:3 71.2.840.376405.1.72.3.15|1.2.840.1143 50.1.13.104.2.7.2.727879_[id number] Nida Gutierrez [facility] 2023-11-28 10:14:23 4653-59-01P17:14:23 VIT D 25OH (ng/mL)Date Value11/26/2023 17 (L) 03436-1Wjaiuysey encounter TaheAN7208-82-38H54:14:50Telephone encounter NoteTXT1.2.840.032157.1.13.104.2.7.2.7 16824|[id number] for patient ankj67745-0RsquVSDJFPXGZHDHbvidzidy C-CDA narrative text[id number] BPQMULLUJZDYXMSTOMVB3430-25-37E37:14:5 01.2.840.047016.1.72.3.15|1.2.840.1143 50.1.13.104.2.7.2.727879_[id number] [facility] 2023-11-26 14:15:00 5245-50-54O22:15:00 Images from the original note were not included.Venipuncture collection performed by clean technique on the left anticubitus. Total of 1 attempts were made. Slight pressure and a bandage/dressing were applied to the site(s). The patient experienced no complications. The following specimens were processed according to instructions and sent to [facility] laboratories per lab order on 11/26/2023:LT BLUESST 4REDLAV 1PPTDK GREEN (LiHep)DK GREEN (SodH)GRAYDK BLUE (K2)DK BLUE (S)ACDBlood CultureNIPT/NTD 87791-8Gyzsh KmqvQU6233-34-15J65:18:11Nurse NoteTXT1.2.840.143112.1.13.104.2.7.2.7 22140|[id number] for patient npeo77488-7Ypdvq NoteLNNARRATIVEFormatted C-CDA narrative text[address] Hu[id number] LHVBWSWCIFQLVOXIHNUW5297-09-69A28:18:1 11.2.840.217135.1.72.3.15|1.2.840.1143 50.1.13.104.2.7.2.727879_[id number] [facility] 2023-10-10 15:45:00 1876-56-77Y69:45:00 Images from the original note were not included.Venipuncture collection performed by clean technique on the right anticubitus. Total of 1 attempts were made. Slight pressure and a bandage/dressing were applied to the site(s). The patient experienced no complications. The following specimens were processed according to instructions and sent to [facility] laboratories per lab order on 10/10/2023:LT BLUESST 1REDLAV 1PPTDK GREEN (LiHep)LT GREEN (LiHep)GRAYDK BLUE (K2)DK BLUE (S)ACDBlood CultureNIPTUrineUrine Culture 59645-9Kikpa KoypQL3156-00-22T96:57:10Nurse NoteTXT1.2.840.753903.1.13.104.2.7.2.7 59325|[id number] for patient lmht87125-4Xtsul NoteLNNARRATIVEFormatted C-CDA narrative textUT[address] [id number] TQZUXUWBPLMWRWVSVCSH5863-13-82F66:57:1 01.2.840.596791.1.72.3.15|1.2.840.1143 50.1.13.104.2.7.2.727879_[id number] [facility] 2023-10-03 18:40:11 2152-34-50G45:40:11 Pt discharged with diagnosis of muscle strain of chest wall. Printed and verbal instructions reviewed with and given to patient. No new prescriptions given for this visit. Pt verbalized understanding of teaching and recommended follow-up. Denies questions or concerns at this time. Pt ambulatory at discharge. Appears in no apparent distress. No ataxia noted. Waiting in lobby for transportation home. 52581-5Jexmhecxm department CkmaLL1280-74-24M39:40:46Emergen department NoteTXT1.2.840.798351.1.13.104.2.7.2.7 48663|[id number] for patient qxzg97521-6LdfwFDBADNKXIQZKdmlkaudg C-CDA narrative [id number] N Dewoody RNUT[address] [id number] YDCTCUORWZQNIVCVPFGO1471-03-13P86:40:4 61.2.840.099172.1.72.3.15|1.2.840.1143 50.1.13.104.2.7.2.727879_[id number] Sayda Arauz RN [facility] 2023-10-03 15:05:23 1533-45-98M05:05:23 [facility] states: "Pt started having chest pain 1 hour ago. She was doing laundry. She did have some nausea on and off. Her pain is in her left chest. I gave 324 mg apirin and 1 NTG. She has a history of HTN and has been out of her meds" 76509-1Htqbqdrtx department Triage oihvXK5418-18-99B05:06:17[facility] Triage noteTXT1.2.840.479762.1.13.104.2.7.2.7 73273|[id number] for patient laaw10463-2Gnjvewsml department NoteLNNARRATIVEFormatted C-CDA narrative [id number] M Cruz RN[id number] YFCDRFQSIUVEBLXMMFEG2792-71-66J45:06:1 71.2.840.844294.1.72.3.15|1.2.840.1143 50.1.13.104.2.7.2.727879_[id number] Kayli Vital RN [facility] 2023-10-03 15:00:00 2047-00-62C77:00:00 [facility] Emergency Department NotePatient Name: Red Worley of : 1980 43 year old femaleTreatment Room: Room/bed info not foundMedical Record Number: [id number] Care Physician: Randy ChauhanPatient Escorted by: Self [9][facility] [place] [facility] [43]EMS Treatment Prior to ED Arrival:PAVER INSTALLER treatment: Other (comment)PAVER INSTALLER treatment comments: see triage noteTravel and Exposure Screening:SymptomsDoes patient have any of these symptoms?: (not recorded)Exposure ScreeningHas patient had contact with someone with a communicable disease in the last month?: (not recorded)Diseases exposed to:: (not recorded)Is Patient ?: (not recorded)Exposure Date: (not recorded)Chief Complaint:Chief ComplaintPatient presents withChest PainHistory of Present Illness:SOH31ow morbidly obese AAAnthony presents today with left sided chest pain that started this morning. She states she had some SOB but no nausea. It is still present. EMS gave nitro & ASA which didn't help. She states she was doing laundry when it started. She also thinks her left arm is more swollen than her right. She states she gets anxiety about taking medicaitons. She also states she did a hard workout 2 days ago but felt fine yesterday.Past Medical History/Immunizations:Past Medical History:Diagnosis DateAbnormal Pap smear 2002unknown resultAbnormal uterine bleedingBlood transfusion, without reported diagnosis 1986during surgeryHTN (hypertension)Morbid obesity with BMI of 50.0-59.9, adultPID (pelvic inflammatory disease)Sneddon-Gonzalez diseaseTetanus received in last 5 years: NoChildhood immunizations: Db-rd-nldbTuvcrfzmu:No Known AllergiesPast Social History:Tobacco UseFormerPassive Exposure: PastSmokeless Tobacco: Former user of smokeless tobacco; Quit 12/27/2011.Alcohol UseNot Currently.Drug UseNot Currently.Comments: hx of marijuana and cocaine abuse-clean x 3 yearsSexual ActivitySexually active; Partners: Male; Control/Protection: None.Comments: last had sex in 2010Pa Surgical History:Past Surgical History:Procedure Laterality DateCESAREAN SECTION N/A 03/27/2021urgeon: Herminio Isaac MD; Location: Labor and Delivery OR [place] LY[place] NODE,SIMPLE 1986ESOPHAGOGASTRODUODENOSCOPY N/A 04/25/2023Surgeon: Marcos Rodriguez MD; Location: ENDOSCOPY ([facility]) OR LOCATIONLAPAROSCOPIC ROBOTIC ASSISTED CHOLECYSTECTOMY N/A 04/29/2023Surgeon: Antoinette Mccullough MD; Location: [facility] OR LOCATIONTUBAL LIGATION N/A 1Surgeon: Herminio Isaac MD; Location: Labor and Delivery OR Location-[facility] of Systems:Review of SystemsConstitutional: Negative for activity change, diaphoresis, fatigue, fever and weight gain.HENT: Negative for congestion, ear pain, rhinorrhea, sore throat, tinnitus and trouble swallowing.Eyes: Negative for discharge and visual disturbance.Respiratory: Positive for chest tightness. Negative for cough.Breasts: Negative for pain.Cardiovascular: Negative for chest pain and palpitations.Gastrointestinal: Negative for abdominal pain, nausea and vomiting.Genitourinary: Negative for dysuria, hematuria and difficulty urinating.Musculoskeletal: Negative for joint swelling.Skin: Negative for rash and wound.Neurological: Negative for dizziness and headaches.Psychiatric/Behavioral: Negative for agitation and confusion. The patient is not nervous/anxious.Hematological: Does not bruise/bleed easily.Endocrine: Negative for weight gain.Physical Exam:ED Triage Vitals [10/03/23 1506]Weight 156.5 kg (345 lb)Actual or estimated Estimated by patient/family reportHeight 1.651 m (5' 5")BP (!) 169/93Pulse 97Resp 24Temp 37.3 ?C (99.2 ?F)Temp source OralSpO2 95 %Measured on Room airPhysical ExamVitals reviewed.Constitutional:Appearance: She is well-developed. She is obese.HENT:Head: Normocephalic and atraumatic.Eyes:Conjunctiva/sclera: Conjunctivae normal.Cardiovascular:Rate and Rhythm: Normal rate and regular rhythm.Heart sounds: Normal heart sounds. No murmur heard.Comments: Reproducible pain especially with movement of left armPulmonary:Effort: Pulmonary effort is normal.Breath sounds: Normal breath sounds. No stridor.Abdominal:General: Bowel sounds are normal.Palpations: Abdomen is soft.Tenderness: There is no abdominal tenderness.Musculoskeletal:General: Normal range of motion.Cervical back: Neck supple.Skin:General: Skin is warm and dry.Capillary Refill: Capillary refill takes less than 2 seconds.Neurological:Mental Status: She is alert and oriented to person, place, and time.Cranial Nerves: No cranial nerve deficit.Psychiatric:Behavior: Behavior normal.Radiology:XR CHEST 1 VWFinal ResultOrdering Physician: TAYLOR AGEECONERClinical Indication: cpAdditional Clinical Information:Technical Limitations: NoneComparison: NoneTechnique: Portable chest obtained at 1608 hoursFindings: Shallow inspiration. Cardiomegaly. Mild asymmetric rightinterstitial infiltrateIMPRESSIONAsymmetric right interstitial infiltrate.END OF REPORT Lab Results:Lab ResultsCBC WITH DIFF - AbnormalResult Value Ref RangeWBC 10.25 4.30 - 11.10 10*3/?LRBC 4.56 3.93 - 5.25 10*6/?LHGB 12.9 11.6 - 15.0 g/dLHCT 40.4 35.7 - 45.2 %MCV 88.6 80.6 - 95.5 fLMCH 28.3 25.9 - 32.8 pgMCHC 31.9 31.6 - 35.1 g/dLRDW-SD 46.0 39.0 - 49.9 fLRDW-CV 14.4 12.0 - 15.5 %PLT 271 166 - 358 10*3/?LMPV 10.1 9.5 - 12.9 fLNRBC/100 WBC 0.0 0.0 - 10.0 /100 WBCsNRBC x10^3 <0.01 10*3/?LGRAN MAT (NEUT) % 58.8 %IMM GRAN % 0.50 %LYMPH % 32.9 %MONO % 6.2 %EOS % 1.1 %BASO % 0.5 %GRAN MAT x10^3(ANC) 6.03 1.88 - 7.09 10*3/uLIMM GRAN x10^3 0.05 0.00 - 0.06 10*3/uLLYMPH x10^3 3.37 (*) 1.32 - 3.29 10*3/uLMONO x10^3 0.64 0.33 - 0.92 10*3/uLEOS x10^3 0.11 0.03 - 0.39 10*3/uLBASO x10^3 0.05 0.01 - 0.07 10*3/uLTROPONIN I - NormalTROPONIN I 0.006 <=0.034 ng/mLBASIC METABOLIC PANEL (NA, K, CL, CO2, GLUCOSE, BUN, CREATININE, CA)NA 137 135 - 145 mmol/LK 4.0 3.5 - 5.0 mmol/LCL 107 98 - 108 mmol/LCO2 TOTAL 24 23 - 31 mmol/LAGAP 6 2 - 16BUN 19 7 - 23 mg/dLGLUCOSE 110 70 - 110 mg/dLCREATININE 0.64 0.50 - 1.04 mg/dLCALCIUM 8.7 8.6 - 10.6 mg/dLeGFR 112.6 mL/min/1.66u7MDI:If EKG completed, see Procedure Note.Orders and Treatments:Orders Placed This EncounterProceduresXR CHEST 1 VWXR CHEST 1 VWTroponin ICbc with DiffBasic Metabolic Panel (NA, K, CL, CO2, GLUCOSE, BUN, CREATININE, CA)Orders Placed This EncounterMedicationsketorolac (TORADOL) injection 15 mgFirst Provider Eval:ED EventsDate/Time Event User Nekcvssz64/08/24 1505 Medical Screening Begins TAYLOR BYNUM MD --10/03/23 1505 First Provider Evaluation TAYLOR BYNUM MD --ED COURSEDiagnosis/Impression as of 10/03/23 1827Chest pain, unspecified typeMuscle strain of chest wall, initial encounterProcedures:ProceduresMDM:Medi harpreet Decision MakingEKG and labs are all normal including normal tropHEART score less than 3Toradol given for pain with reliefCXR shows initial concern for R infiltrate but patient was laying on rolled up braGot a CXR lateral, which is clear - do NOT suspect infiltrate. Called Radiology who confirmedDischarged with chest wall muscle strain.Problems Addressed:Chest pain, unspecified type: acute illness or injury with systemic symptomsMuscle strain of chest wall, initial encounter: acute illness or injury with systemic symptomsAmount and/or Complexity of Data ReviewedLabs: ordered.Radiology: ordered.ECG/medicine tests: ordered and independent interpretation performed.RiskPrescription drug management.Flowsheet Documentation:Scoring Tools:No data recordedDisposition/Condition:ED DispositionED DispositionDisch - HomeConditionStableComment--Discharge Medications:Patient's MedicationsSTART taking these medicationsNo medications on fileCONTINUE taking these medications which have NOT CHANGEDGABAPENTIN 300 MG CAPSULE Take 1 capsule by mouth in the morning and 1 capsule at noon and 1 capsule in the evening.ONDANSETRON 4 MG DISINTEGRATING TABLET Take 1 tablet by mouth every 8 (eight) hours as needed for Nausea and Vomiting (N/V).PEG-ELECTROLYTE SOLN 236-22.74-6.74 -5.86 GRAM SOLUTION Take as directed before colonoscopySTART taking Modified Medications as PrescribedNo medications on fileSTOP taking these medicationsNo medications on fileFollow-up:Electronically signed by:Taylor Bynum DO10/03/23 1827 62472-8Hvoywzyov Emergency department ShxaSH4435-93-89A84:27:55Physician Emergency department NoteTXT1.2.840.586019.1.13.104.2.7.2.7 92474|[id number] for patient jnkq35491-9Xhqmxbhgc department NoteLNNARRATIVEFormatted C-CDA narrative textUT[address] YalcEyaeeqmelQupbbhkwkRTNK0690256429MT KSTJELFPNKKBHJCEVROU4207-15-84B07:27:5 51.2.840.539644.1.72.3.15|1.2.840.1143 50.1.13.104.2.7.2.727879_[id number] [facility] 2023-09-30 14:47:48 5086-79-00G07:47:48 Called patient, no answer, left voicemail asking patient to call back to clinic, left clinic phone#. 69570-2Ujgrkjlhr encounter UpnmWJ3327-06-81F44:47:56Telephone encounter NoteTXT1.2.840.782734.1.13.104.2.7.2.7 31013|[id number] for patient qcsm55006-8DxjhAZWOAKPEOEKSkizuthmr C-CDA narrative [id number] Simpson [id number] WYVZEEJGLGFDZWTYPGIN2899-31-32S34:47:5 61.2.840.940990.1.72.3.15|1.2.840.1143 50.1.13.104.2.7.2.727879_[id number] Jailyn Xiong [facility] 2023-09-29 15:45:21 3167-28-47J70:45:21 Red Slater is a 43 year old femalePatient is calling requesting a sooner appt and states she has a flare up. Please advise. [phone] (home)Future AppointmentsIn 1 month Javi Mcpherson MD [facility], [facility] Centerectronically signed by Nicki Melgar at 09/29/2023 3:46 PM GOA32953-8Rljtockzk encounter PsgnYP2691-14-22O51:46:35Telephone encounter NoteTXT1.2.840.671939.1.13.104.2.7.2.7 10127|[id number] for patient lohz53633-2ZcpaJKWXMCBWFBJSihjdzuhz C-CDA narrative kzpd34794434Yzrbosy [id number] BOEDKUSWHLIUEAHYLWGC2688-83-08T66:46:3 51.2.840.799118.1.72.3.15|1.2.840.1143 50.1.13.104.2.7.2.727879_[id number] Nicki Melgar [facility] 2023-04-08 19:32:52 2431-77-81S91:32:52 Pt dc'd home ambulatory with follow up instructions. Pt v/u of dc instructions. 05294-0Qcfweubdx department TenqIZ2153-23-49H48:33:19[facility] NoteTXT1.2.840.327215.1.13.104.2.7.2.7 66741|[id number] for patient ntvj96666-9XmxhWR242565156Qzddzm D Roman RNUT[address] [id number] PFOQQQHMBVFAFSZELCLM0474-22-97F13:33:1 91.2.840.224637.1.72.3.15|1.2.840.1143 50.1.13.104.2.7.2.727879_[id number] Rosenda Cabrera RN [facility] 2023-04-08 16:32:31 2218-77-14Q54:32:31 Right leg pain for a "few weeks". Sometimes the leg gets numb. Has appt on for symptoms. 88015-6Ywfioeqjq department Triage jwhoPC2336-47-00U62:33:05[facility] department Triage noteTXT1.2.840.478280.1.13.104.2.7.2.7 99365|[id number] for patient ticd04708-1Tygykbjrb department SyesGX851496020Gbcseay Fief RNUT[address] [id number] ZATBSOJXNYBJOITSZLZU6160-24-03N70:33:0 51.2.840.475725.1.72.3.15|1.2.840.1143 50.1.13.104.2.7.2.727879_[id number] Rachel Sue RN [facility] 2023-03-14 17:01:16 8067-21-14U56:01:16 Pt discharged home. Given all education and information regarding s/s of worsening condition. Gave info regarding result follow up on my chart and importance of pcp follow up. Pt verbalized understanding. Alert and ambulatory to lobby. Awaiting ride. 81171-4Vaxszjyqu department JllfAU3891-44-76K85:02:07[facility] department NoteTXT1.2.840.954375.1.13.104.2.7.2.7 22502|[id number] for patient gcxu70591-2FsgsETLJGAXONV[id number] UZGWVUXWMGAZAISRGVKB4935-49-93I90:02:0 71.2.840.209885.1.72.3.15|1.2.840.1143 50.1.13.104.2.7.2.727879_[id number] [facility] 2023-03-14 16:54:36 5893-93-91U63:54:36 Patient to ed via pov. Alert and ambulatory. Vss. C/o runny nose and "feeling feverish" onset yesterday. Denies vomiting. 72561-2Fkscsreki department Triage pvtpPZ7627-78-83L57:55:30[facility] department Triage noteTXT1.2.840.145399.1.13.104.2.7.2.7 27958|[id number] for patient zrgf43152-2Rrsilvvqy department XiitWW069971014Ytgceq A Paul RN[id number] GJKAECWSDEHKHPIKDWNY4665-63-09Z31:55:3 01.2.840.450103.1.72.3.15|1.2.840.1143 50.1.13.104.2.7.2.727879_[id number] Jacqui Campbell RN [facility] - Health 2023-03-14 16:53:00 4907-17-48E20:53:00 [facility] Emergency Department NotePatient Name: Red Worley of : 1980 43 year old femaleTreatment Room: [facility] Record Number: [id number] Care Physician: Randy ChauhanPatient Escorted by: Self [9]Mode of Arrival: Personal means [1]EMS Treatment Prior to ED Arrival: Travel and Exposure Screening:SymptomsDoes patient have any of these symptoms?: (not recorded)Exposure ScreeningHas patient had contact with someone with a communicable disease in the last month?: (not recorded)Diseases exposed to:: (not recorded)Is Patient ?: (not recorded)Exposure Date: (not recorded)Chief Complaint:Chief Complaint Patient presents with RUNNY NOSE Fever History of Present Illness:The patient presents from home for evaluation for cough and a runny nose that started today. No fevers. No medications for symptoms. No sick contacts. She does not smoke. No history of asthma or COPD. No ear pain or sore throat.Here for evaluation.Past Medical History/Immunizations:Past Medical History: Diagnosis Date Abnormal Pap smear 2002 unknown result Abnormal uterine bleeding Blood transfusion, without reported diagnosis 1986 during surgery HTN (hypertension) PID (pelvic inflammatory disease) Sneddon-Gonzalez disease Tetanus received in last 5 years: UnknownChildhood immunizations: Up-to-date Allergies:No Known AllergiesPast Social History:Tobacco Use Former Passive Exposure: Past Smokeless Tobacco: Former user of smokeless tobacco; Quit 12/27/2011. Alcohol Use Not Currently. Drug Use Not Currently. Comments: hx of marijuana and cocaine abuse-clean x 3 years Sexual Activity Sexually active; Partners: Male; Control/Protection: None. Comments: last had sex in 2010 Past Surgical History:Past Surgical History: Procedure Laterality Date SECTION N/A 03/27/2021 Surgeon: Herminio Isaac MD; Location: Labor and Delivery [place] Location-[place] DRAINAGE LYMPH NODE,SIMPLE 1986 TUBAL LIGATION N/A 03/27/2021 Surgeon: Herminio Isaac MD; Location: Labor and Delivery [place] Location-[place] Review of Systems: Review of Systems Constitutional: Negative for chills and fever. HENT: Positive for rhinorrhea. Respiratory: Positive for cough. Cardiovascular: Negative for chest pain. Gastrointestinal: Negative for abdominal pain. Genitourinary: Negative for dysuria. Musculoskeletal: Negative for arthralgias, neck pain and neck stiffness. Neurological: Negative for dizziness. Psychiatric/Behavioral: Negative for agitation. Physical Exam: ED Triage Vitals [03/14/23 1655] Weight 161.9 kg (357 lb) Actual or estimated Actual Height BP (!) 169/109 Pulse 97 Resp 20 Temp 37.5 ?C (99.5 ?F) Temp source Oral SpO2 97 % Measured on Room air Physical ExamVitals and nursing note reviewed. Constitutional: Appearance: Normal appearance. She is obese. HENT: Head: Normocephalic and atraumatic. Right Ear: Tympanic membrane, ear canal and external ear normal. Left Ear: Tympanic membrane, ear canal and external ear normal. Nose: Nose normal. Mouth/Throat: Mouth: Mucous membranes are moist. Pharynx: Oropharynx is clear. No oropharyngeal exudate or posterior oropharyngeal erythema. Cardiovascular: Rate and Rhythm: Normal rate and regular rhythm. Pulses: Normal pulses. Pulmonary: Effort: Pulmonary effort is normal. No respiratory distress. Breath sounds: No stridor. No wheezing or rhonchi. Abdominal: General: There is no distension. Musculoskeletal: General: Normal range of motion. Cervical back: Neck supple. Skin: General: Skin is warm and dry. Neurological: General: No focal deficit present. Mental Status: She is alert and oriented to person, place, and time. Radiology:No orders to display Lab Results:Lab Results - No data to displayEKG:If EKG completed, see Procedure Note. Orders and Treatments:Orders Placed This Encounter Procedures COVID-19 (ID NOW TESTING) No orders of the defined types were placed in this encounter.First Provider Eval:ED Events Date/Time Event User Comments 03/14/231652 Medical Screening Begins KASSY GUTIERREZ DO -- 03/14/23 165 First Provider Evaluation KASSY GUTIERREZ DO -- No notes of EC Admission Criteria type on file.ED COURSEDiagnosis/Impression as of 03/14/23 170 Upper respiratory tract infection, unspecified type Procedures: ProceduresMDM:Medical Decision MakingThe patient presents from home for evaluation for cough and a runny nose that started today. No medications for symptoms. No sick contacts. No fevers. She does not smoke. No history of asthma. No flu or COVID vaccines.Vital signs are stable here in the ER.The patient is obese.Her lungs are clear bilaterally.Her tympanic membranes are pearly morrow.No concern for bacterial infection.We will screen the patient for COVID.Recommend she is dfiy-ndq-ozexkzb cough and cold medications as needed for her symptoms.She remained stable here in the ER and is okay for discharge home with PCP follow-up.She can follow-up with the results of the COVID test on the L[facility] britt.Problems Addressed:Upper respiratory tract infection, unspecified type: acute illness or injuryAmount and/or Complexity of Data ReviewedLabs: ordered.RiskOT drugs. Flowsheet Documentation: Scoring Tools: No data recorded Disposition/Condition:ED Disposition ED Disposition Disch - Home Condition Stable Comment -- Discharge Medications:Patient's Medications START taking these medications No medications on file CONTINUE taking these medications which have NOT CHANGED DICYCLOMINE 20 MG TABLET Take 1 tablet by mouth 4 (four) times daily as needed for Abdominal pain. ONDANSETRON 4 MG DISINTEGRATING TABLET Take 1 tablet by mouth every 8 (eight) hours as needed for Nausea and Vomiting (N/V). PANTOPRAZOLE 40 MG DELAYED-RELEASE SUSPENSION Take 40 mg by mouth in the morning and 40 mg in the evening. PEG-ELECTROLYTE SOLN 236-22.74-6.74 -5.86 GRAM SOLUTION Take as directed before colonoscopy START taking Modified Medications as Prescribed No medications on file STOP taking these medications No medications on file Follow-up:Electronically signed by: Kassy Gutierrez DO03/14/23 170 64666-6Wvhotnuwi Emergency department ScxvPS8741-78-22K16:02:09Physician Emergency department NoteTXT1.2.840.030710.1.13.104.2.7.2.7 30290|[id number] for patient ayok42446-8Jvisuhoce department Note[id number] FYCCDNPZLYKNOUTLQNOG5471-47-78J08:02:0 91.2.840.648999.1.72.3.15|1.2.840.1143 50.1.13.104.2.7.2.727879_[id number] [facility] 2023-03-14 08:28:10 9181-51-16F52:28:10 I called pt to ask about the pantoprazole suspension ordered. No answer, I left VM with my call back number. 14479-0Mlqbtprce encounter WzpxVH8734-06-30L37:28:52Telephone encounter NoteTXT1.2.840.622329.1.13.104.2.7.2.7 87453|[id number] for patient pukp64478-8XjcyJRXPMFGOIZ[id number] BJZKYKSCPZVSTALYMIKU0705-61-94P61:28:5 21.2.840.361320.1.72.3.15|1.2.840.1143 50.1.13.104.2.7.2.727879_[id number] [facility] 2023-03-13 18:04:20 8841-76-70L04:04:20 Red Slater is a 43 year old female, [place] with [facility] pharmacy calling regarding rx for pantoprazole. Has a quantity of 1 listed. Please send updated rx. [facility] [address] [place], [place] [address]Phone: Hyycqfrkmfhwrj signed by Crystal Mujica at 03/13/2023 6:05 PM DQJ48605-0Iznqitayp encounter BkjaZV6577-86-66L21:05:42Telephone encounter NoteTXT1.2.840.721053.1.13.104.2.7.2.7 42226|[id number] for patient qrua12268-3PvlfET36785279Sdatru L Goolsby[id number] GHBFJHKJLKRAWOYKGMOT2892-43-54D07:05:4 21.2.840.808788.1.72.3.15|1.2.840.1143 50.1.13.104.2.7.2.727879_[id number] Crystal Mujica [facility] 2023-03-13 11:00:00 3859-77-61I68:00:00 Addended by: BOAZ DELGADO on: 03/13/2023 04:23 PM Modules accepted: Level of Service 63428-5Hrhdnhiu GbnjlpyxEE5762-10-95I29:23:05Addendum DocumentTXT1.2.840.377090.1.13.104.2.7 .2.540445|[id number] for patient ipzr97586-7YcqaLUMLGCBVZE[id number] GZMZTTTXKPNYFBMGLZTI7213-01-26F41:23:0 51.2.840.499031.1.72.3.15|1.2.840.1143 50.1.13.104.2.7.2.727879_[id number] [facility] 2023-03-11 20:58:50 9793-16-08P68:58:50 Pt given printed and verbal discharge instructions regarding generalized abdominal pain, nausea and vomiting, weakness, dysuria, encouraged hydration,2 Prescriptions sent. Pt verbalized understanding of instructions, pt awake alert oriented, resp reg unlabored, skin w/d, color appropriate for race, moves all ext well,pt encouraged to follow up with pcp and GI. Advised to seek medical attention for new/prolonged/worsening of symptoms,Symptoms improved. No adverse reaction to meds given in ER noted upon dischargePIV d'cd, dressing to site, catheter in tact.Awake, alert oriented, resp reg unlabored, skin w/d, pt leaving amb with steady gait, in no apparent distress, 52660-2Orjnuhejw department VuwuDL0868-68-93L64:59:40[facility] NoteTXT1.2.840.732640.1.13.104.2.7.2.7 19442|[id number] for patient djzd93547-2VytsXD304458821Yltzxunl M Felix RNUT[id number] ZHMZOLWVJJFQNXLFXSZK3459-68-59M96:59:4 01.2.840.297251.1.72.3.15|1.2.840.1143 50.1.13.104.2.7.2.727879_[id number] Mary Zazueta RN [facility] 2023-03-11 17:40:35 6220-53-21X61:40:35 Patient to ED for abdominal pain x 2 weeks. Concerned because she can't eat and lost her prescriptions for UTI she has. 29802-8Gvartfqbu department Triage wdioMF3145-89-89G57:46:11[facility] Triage noteTXT1.2.840.600623.1.13.104.2.7.2.7 12932|[id number] for patient ctfq56943-5Gavmivhvh department LilqNZ373880649Zkbxbsf D Elizabeth MCKAYUT[id number] XOADHAPNHKUDQUFVLBBV1501-87-46J76:46:1 11.2.840.385992.1.72.3.15|1.2.840.1143 50.1.13.104.2.7.2.727879_[id number] Stanislaw Isac Johnson RN [facility] 2023-02-26 19:15:50 7968-91-88I89:15:50Summary: RN DC note Patient discharged patient informed that AVS summary provided will look different than normal AVS summary. Patient verbalized she was able to read AVS that was provided. Patient also informed that AVS summary would be available on her mychart. Patient verbalized understanding of all dc information and importance of attending follow up appts. Patient plans to leave unit via wheel chair and get a ride home from her mother. Patient alert and oriented times 4 at time of dc. Patient still complaining of abdominal pain, but plans to find a ride to her follow up appt tomorrow. patient ambulatory without assistance. Patient being wheeled off unit by [facility]. 80875-2Ylmtj GqldWH1849-14-90C62:26:41Nurse NoteTXT1.2.840.860011.1.13.104.2.7.2.7 35675|[id number] for patient ppha67844-1VorzRI935538158Sdsfqtf B Vanier RNUTMB[id number] AWGGUSSMTQANQSAOCJVZ3159-42-16F68:26:4 11.2.840.860521.1.72.3.15|1.2.840.1143 50.1.13.104.2.7.2.727879_[id number] Angela Omalley RN [facility] 2023-02-26 16:23:29 9572-57-35O22:23:29 Problem: Discharge PlanningGoal: Adequate for discharge02/26/20231622 by Angela Omalley RNOutcome: Adequate for discharge02/26/2023 1446 by Angela Omalley RNOutcome: Progressing as expectedGoal: Adequate to move to next level of care02/26/20231622 by Angela Omalley RNOutcome: Adequate for discharge02/26/2023 1446 by Angela Omalley RNOutcome: Progressing as expectedGoal: Knowledge of medication management02/26/20231622 by Angela Omalley RNOutcome: Adequate for discharge02/26/2023 1446 by Angela Omalley RNOutcome: Progressing as expected Problem: Venous Thromboembolism, (actual or risk of)Goal: Absence of venous thromboembolism (Risk)02/26/20231622 by Angela Omalley RNOutcome: Adequate for discharge02/26/2023 1446 by Angela Omalley RNOutcome: Progressing as expectedGoal: Prevent further complications associated with VTE diagnosis (Actual)02/26/20231622 by Angela Omalley RNOutcome: Adequate for discharge02/26/2023 1446 by Angela Omalley RNOutcome: Progressing as expected Problem: Falls, Risk ofGoal: Absence of falls02/26/20231622 by Angela Omalley RNOutcome: Adequate for discharge02/26/2023 1446 by Angela Omalley RNOutcome: Progressing as expected Problem: Discharge PlanningGoal: Adequate for discharge02/26/20231622 by Angela Omalley RNOutcome: Adequate for discharge02/26/2023 1446 by Angela Omalley RNOutcome: Progressing as expectedGoal: Effective communication02/26/2023 1623 by Angela Omalley RNOutcome: Adequate for discharge02/26/2023 1446 by Angela Omalley RNOutcome: Progressing as expected Problem: Skin integrity Impaired (Risk or Actual)Goal: Prevention of new skin breakdown02/26/2023 1623 by Angela Omalley RNOutcome: Adequate for discharge02/26/2023 1446 by Angela Omalley RNOutcome: Progressing as expected 62001-8Sldk of care uwffEJ5750-32-70R11:23:31Plan of care noteTXT1.2.840.731909.1.13.104.2.7.2.7 34425|[id number] for patient koef64551-5ByqvQEPLLNIJKI[id number] CDADUKMNPZCWQZYSKQHQ3684-10-06T86:23:3 11.2.840.415036.1.72.3.15|1.2.840.1143 50.1.13.104.2.7.2.727879_[id number] [facility] 2023-02-26 14:46:53 8454-85-04I78:46:53 Problem: Discharge PlanningGoal: Adequate for dischargeOutcome: Progressing as expectedGoal: Adequate to move to next level of careOutcome: Progressing as expectedGoal: Knowledge of medication managementOutcome: Progressing as expected Problem: Venous Thromboembolism, (actual or risk of)Goal: Absence of venous thromboembolism (Risk)Outcome: Progressing as expectedGoal: Prevent further complications associated with VTE diagnosis (Actual)Outcome: Progressing as expected Problem: Falls, Risk ofGoal: Absence of fallsOutcome: Progressing as expected Problem: Discharge PlanningGoal: Adequate for dischargeOutcome: Progressing as expectedGoal: Effective communicationOutcome: Progressing as expected Problem: Skin integrity Impaired (Risk or Actual)Goal: Prevention of new skin breakdownOutcome: Progressing as expected 69581-2Wqat of care ziglYS5587-00-25Z44:46:55Plan of care noteTXT1.2.840.393958.1.13.104.2.7.2.7 35491|[id number] for patient uzjk84552-1ZzntYVHHFUKNFZ[id number] AJKHAFDHXTGPGKDOSWBJ2057-62-26K63:46:5 51.2.840.757213.1.72.3.15|1.2.840.1143 50.1.13.104.2.7.2.727879_[id number] [facility] 2023-02-26 01:37:41 9321-97-32J99:37:41 Problem: Discharge PlanningGoal: Adequate for dischargeOutcome: Progressing as expectedGoal: Adequate to move to next level of careOutcome: Progressing as expectedGoal: Knowledge of medication managementOutcome: Progressing as expected Problem: Venous Thromboembolism, (actual or risk of)Goal: Absence of venous thromboembolism (Risk)Outcome: Progressing as expectedGoal: Prevent further complications associated with VTE diagnosis (Actual)Outcome: Progressing as expected Problem: Falls, Risk ofGoal: Absence of fallsOutcome: Progressing as expected Problem: Discharge PlanningGoal: Adequate for dischargeOutcome: Progressing as expectedGoal: Effective communicationOutcome: Progressing as expected Problem: Skin integrity Impaired (Risk or Actual)Goal: Prevention of new skin breakdownOutcome: Progressing as expected 44715-1Tcwb of care pjngWE2131-70-77W49:37:48Plan of care noteTXT1.2.840.121737.1.13.104.2.7.2.7 61339|[id number] for patient pgid35636-3NpqiUT267901022Iemelc Marie Ric Jayy RNUT[id number] KABFVWFXXRSPHHKXQIJH6246-70-04L16:37:4 81.2.840.541677.1.72.3.15|1.2.840.1143 50.1.13.104.2.7.2.727879_[id number] Ariella Hope RN [facility] 2023-02-25 18:58:38 0569-43-15I94:58:38 Nurse Report Report given to Ariella RN, Chief complaint, assessment findings, infusion verify and [place] [address]-6Jhacwubpg department VufzMM5829-00-55H57:59:12[facility] NoteTXT1.2.840.645463.1.13.104.2.7.2.7 02598|[id number] for patient nmdq96976-6AfumWM320041499Jzlobn M. Barton RNUT[id number] OYUMRLREJMIEMGZXMPIW1373-68-75C15:59:1 21.2.840.037797.1.72.3.15|1.2.840.1143 50.1.13.104.2.7.2.727879_[id number] Maria C Tejeda RN [facility] 2023-02-25 17:15:00 3153-51-88A58:15:00 Ambulated to bathroom without distress, pt current on menses 40052-8Vsfxmtbvi department KpvpQW5545-77-14G84:57:05[facility] NoteTXT1.2.840.605151.1.13.104.2.7.2.7 25577|[id number] for patient jqqr05962-9NvpeRVLJSFAHLC[id number] ZXSDJXMJJSUKDQQNWGCY8446-04-00B30:57:0 51.2.840.086629.1.72.3.15|1.2.840.1143 50.1.13.104.2.7.2.727879_[id number] [facility] 2023-02-25 15:54:00 3024-68-04Q10:54:00 Return to room on environmental monitoring technician with RN, pt with no neuro deficits, shana valentine, speech clear 56322-6Uuxxrgecm[address] [place] [address] FmfpAN7708-50-69G04:30:05[facility] NoteTXT1.2.840.916774.1.13.104.2.7.2.7 15437|[id number] for patient nwmf06220-5LbqdPIIPHMGUBG[id number] FUCQWBZVHUVFNDGPSBIM3545-88-60J46:30:0 51.2.840.337721.1.72.3.15|1.2.840.1143 50.1.13.104.2.7.2.727879_[id number] [facility] 2023-02-25 15:35:00 1901-94-86Q08:35:[address] on environmental monitoring technician RN with [address]70-8Mellij[address] PltwEB4548-06-86E55:33:19[facility] NoteTXT1.2.840.877725.1.13.104.2.7.2.7 99752|[id number] for patient hcii85085-0AabkSWOWNQXUPE[id number] SCTHHPYYGVOGSKLFGLCA3800-50-42S75:33:1 91.2.840.791682.1.72.3.15|1.2.840.1143 50.1.13.104.2.7.2.727879_[id number] [facility] 2023-02-25 15:15:00 5263-03-64M56:15:[address] leaving room pt moved her leg stated she has had issues for a couple months with a heavy leg, states basically she just lays in bed all day. 29900-3Qfiiypmmz department NphfQP5611-63-20V54:39:51[facility] department NoteTXT1.2.84[id number] for patient [id number] [id number] [id number]:39:5 [id number]|1.2.840.1143 [id number] [facility] 2023-02-25 15:09:00 [id number]:09:[address] Meyers in room assessing pt stating she could not move her left leg, Dr decided to call code stroke, [id number] department HbplPH2654-54-68U51:34:58[facility] [id number] for patient [id number] [address] [id number] KUUDQQNPIKXHHVISCHIQ1904-12-11T73:34:5 [id number] [facility] 2023-02-25 14:40:51 1324-24-40Y53:40:51 Pt was making lunch approx 1400 when she started to feel dizzy, diaphoretic with chest pressure. [place] like she was going to pass out and started hyperventilating. [place] like her left side was tingly. Has GI appt on . States she hasn't been able to eat right for a month and it causes her stomach to hurt. 40489-4Wtmlnqzqr department Triage masxVM1456-31-92F52:45:29[facility] Triage [id number] for patient cbis85638-7Hncqcpfix department [id number] Fief RN[id number] XWWOSSEDSYPWOTNCTDVU2956-40-46Y89:45:2 [id number] [id number] Rachel Sue RN [facility] 2023-02-25 14:31:00 1960-17-56K45:31:00 [facility] Emergency Department NotePatient Name: Red Worley of : 1980 43 year old femaleTreatment Room: NE5[facility]nvexsh Record Number: [id number] Care Physician: Randy ChauhanPatient Escorted by: Self [9]Mode of Arrival: EMS - [place] [47]EMS Treatment Prior to ED Arrival: Travel and Exposure Screening:SymptomsDoes patient have any of these symptoms?: (not recorded)Exposure ScreeningHas patient had contact with someone with a communicable disease in the last month?: (not recorded)Diseases exposed to:: (not recorded)Is Patient ?: (not recorded)Exposure Date: (not recorded)Chief Complaint:Chief Complaint Patient presents with Chest Pain Dizziness History of Present Illness:Pt presents for chest pain, dizziness that began this afternoon. PT states she felt chest pain and lightheadedness. Pt then had entire L sided numbness. Pt states she cant move her LLE. Pt states she has been under more stress. Past Medical History/Immunizations:Past Medical History: Diagnosis Date Abnormal Pap smear 2002 unknown result Abnormal uterine bleeding Blood transfusion, without reported diagnosis 1985 during surgery HTN (hypertension) PID (pelvic inflammatory disease) Sneddon-Gonzalez disease Tetanus received in last 5 years: UnknownChildhood immunizations: Up-to-date Allergies:No Known AllergiesPast Social History:Tobacco Use Former Smokeless Tobacco: Former user of smokeless tobacco; Quit 12/27/2011. Alcohol Use Yes. Drug Use No. Comments: hx of marijuana and cocaine abuse-clean x 3 years Sexual Activity Sexually active; Partners: Male; Control/Protection: None. Comments: last had sex in 2010 Past Surgical History:Past Surgical History: Procedure Laterality Date SECTION N/A 03/27/2021 Surgeon: Herminio Isaac MD; Location: Labor and Delivery OR Location-[place] DRAINAGE LYMPH NODE,SIMPLE 1985 TUBAL LIGATION N/A 03/27/2021 Surgeon: Herminio Isaac MD; Location: Labor and Delivery OR Location-[place] Review of Systems: Review of Systems Constitutional: Negative for fever. Respiratory: Positive for chest tightness. Cardiovascular: Positive for chest pain. Neurological: Positive for dizziness, light-headedness and numbness. Physical Exam: ED Triage Vitals [02/25/23 1445] Weight 163.9 kg (361 lb 6.4 oz) Actual or estimated Actual Height 1.651 m (5' 5") BP (!) 134/13 Pulse 112 Resp 22 Temp 37.4 ?C (99.3 ?F) Temp source Oral SpO2 97 % Measured on Room air Physical ExamVitals and nursing note reviewed. Constitutional: Appearance: Normal appearance. HENT: Head: Normocephalic. Mouth/Throat: Comments: No facial asymmetryEyes: Extraocular Movements: Extraocular movements intact. Cardiovascular: Rate and Rhythm: Tachycardia present. Pulmonary: Effort: Pulmonary effort is normal. Neurological: Mental Status: She is alert and oriented to person, place, and time. Mental status is at baseline. Motor: Weakness present. Comments: Unable to lift LLE, 4+ strength in LUE vs RUE. Psychiatric: Mood and Affect: Mood normal. Behavior: Behavior normal. Thought Content: Thought content normal. Judgment: Judgment normal. Radiology:CT ACUTE STROKE ANGIOGRAM HEAD Final Result EXAM: CT STROKE ANGIOGRAM NECK, EXAM: CT STROKE ANGIOGRAM HEAD HISTORY: Neuro deficit, acute, stroke suspected Rad: please obtain POCT creatinine prior to CTA head/neck. History obtained from [facility]: "Pt was making lunch approx 1400 when she started to feel dizzy, diaphoretic with chest pressure. [place] like she was going to pass out and started hyperventilating" TECHNIQUE: CTA of the head and neck was performed after the uncomplicated administration of intravenous contrast. Coronal and sagittal reformats were obtained. COMPARISON: Same day CT head. No prior CT angiograms are available for comparison. FINDINGS: CTA Neck: The aorta has three-vessel arch anatomy and the arch vessels are patent. The subclavian arteries are patent. The common carotid, carotid bulb/ICA origins, and cervical ICA are widely patent. Both common carotids transverse a retropharyngeal course. The codominant vertebral arteries originate from the subclavian arteries are patent throughout the neck. CTA Head: The vertebral arteries are patent. Both PICA origins are seen. The basilar artery is normal in caliber and patent. The superior cerebellar arteries are patent. Both ROLL THREADER OPERATOR are widely patent. No sizable P-comm is visualized. The intracranial ICAs are patent. An anterior communicating artery is present. The BETY and MCA are widely patent. No high-grade stenosis or aneurysm is visualized. The dural venous sinuses are well opacified. IMPRESSION Unremarkable CT angiogram of the head and neck. Preliminary Report Dictated by Resident: Michael Sierra MD., have reviewed this study and agree with the above report. CT ACUTE STROKE ANGIOGRAM NECK Final Result EXAM: CT STROKE ANGIOGRAM NECK, EXAM: CT STROKE ANGIOGRAM HEAD HISTORY: Neuro deficit, acute, stroke suspected Rad: please obtain POCT creatinine prior to CTA head/neck. History obtained from [facility]: "Pt was making lunch approx 1400 when she started to feel dizzy, diaphoretic with chest pressure. [place] like she was going to pass out and started hyperventilating" TECHNIQUE: CTA of the head and neck was performed after the uncomplicated administration of intravenous contrast. Coronal and sagittal reformats were obtained. COMPARISON: Same day CT head. No prior CT angiograms are available for comparison. FINDINGS: CTA Neck: The aorta has three-vessel arch anatomy and the arch vessels are patent. The subclavian arteries are patent. The common carotid, carotid bulb/ICA origins, and cervical ICA are widely patent. Both common carotids transverse a retropharyngeal course. The codominant vertebral arteries originate from the subclavian arteries are patent throughout the neck. CTA Head: The vertebral arteries are patent. Both PICA origins are seen. The basilar artery is normal in caliber and patent. The superior cerebellar arteries are patent. Both ROLL THREADER OPERATOR are widely patent. No sizable P-comm is visualized. The intracranial ICAs are patent. An anterior communicating artery is present. The BETY and MCA are widely patent. No high-grade stenosis or aneurysm is visualized. The dural venous sinuses are well opacified. IMPRESSION Unremarkable CT angiogram of the head and neck. Preliminary Report Dictated by Resident: Michael Sierra MD., have reviewed this study and agree with the above report. CT ACUTE STROKE HEAD WO CONTRAST Final Result CT STROKE HEAD WO CONTRAST HISTORY: Neuro deficit, acute, stroke suspected. Patient presented with dizziness, diaphoresis and chest pressure. COMPARISON: None TECHNIQUE: Noncontrast axial images of the head, with coronal and sagittal reformats. FINDINGS: The ventricles and cerebral sulci are normal in caliber and configuration. No hydrocephalus, midline shift or pathological extra-axial fluid collection is present. The basal cisterns are unremarkable. There is no acute intracranial hemorrhage or significant mass effect. No parenchymal attenuation abnormality. The morrow-white matter differentiation is preserved. The ASPECTS score is estimated to be 10. The mastoid air cells and paranasal air sinuses are clear. The calvarium and central skull base are unremarkable. IMPRESSION No acute intracranial hemorrhage or mass effect. Preliminary Report Dictated by Resident: Ofelia Siddiqi I, Michael Pearl MD., have reviewed this study and agree with the above report. Lab Results:Lab Results BASIC METABOLIC PANEL (NA, K, CL, CO2, GLUCOSE, BUN, CREATININE, CA) - Abnormal Result Value Ref Range NA 138 135 - 145 mmol/L K 3.8 3.5 - 5.0 mmol/L CL 105 98 - 108 mmol/L CO2 TOTAL 22 (*) 23 - 31 mmol/L AGAP 11 2 - 16 BUN 10 7 - 23 mg/dL GLUCOSE 130 (*) 70 - 110 mg/dL CREATININE 0.72 0.50 - 1.04 mg/dL CALCIUM 8.7 8.6 - 10.6 mg/dL eGFR 88.4 mL/min/1.73m2 PROTHROMBIN TIME / INR - Normal PROTIME PATIENT 13.5 12.0 - 14.7 Seconds INR 1.1 ACTIVATED PARTIAL THRMPLAS CARLO - Normal APTT Patient 26 23 - 38 Seconds TROPONIN I - Normal TROPONIN I 0.006 <=0.034 ng/mL CBC WITHOUT DIFF WBC 8.84 4.30 - 11.10 10*3/?L RBC 4.83 3.93 - 5.25 10*6/?L HGB 14.2 11.6 - 15.0 g/dL HCT 41.5 35.7 - 45.2 % MCH 29.4 25.9 - 32.8 pg MCV 85.9 80.6 - 95.5 fL MCHC 34.2 31.6 - 35.1 g/dL PLT 256 166 - 358 10*3/?L MPV 9.9 9.5 - 12.9 fL RDW-CV 14.3 12.0 - 15.5 % RDW-SD 44.4 39.0 - 49.9 fL NRBC x10^3 <0.01 10*3/?L NRBC/100 WBC 0.0 0.0 - 10.0 /100 WBCs IPF % POCT GLUCOSE(AGE >30DAYS) URINALYSIS TROPONIN I LIPID PANEL (60201)(TOTAL CHOLESTEROL, TRIGLYCERIDES, HDL) THYROID STIMULATING HORMONE EKG:Sinus tachycardia, no stemi, qtc 484 HR 102 Orders and Treatments:Orders Placed This Encounter Procedures CT ACUTE STROKE HEAD WO CONTRAST CT ACUTE STROKE ANGIOGRAM HEAD CT ACUTE STROKE ANGIOGRAM NECK MR BRAIN WO CONTRAST POCT Glucose (Age >30 Days) - Code Stroke Prothrombin Time / INR - Code Stroke aPTT - Code Stroke CBC without Diff - Code Stroke Troponin I - Code Stroke Basic Metabolic Panel (NA, K, CL, CO2, Glucose, BUN, Creatinine, CA) - Code Stroke Urinalysis Troponin I Lipid Panel (Total Cholesterol, Triglycerides, HDL) Thyroid Stimulating Hormone (TSH) Consult Cardiology O2 Nasal Cannula Orders Placed This Encounter Medications NaCl 0.9% (NS) injection 5 mL iopamidol (ISOVUE 370-500 mL) injection 100 mL DISCONTD: aspirin tablet 325 mg nitroglycerin (NITROL) 2 % ointment 0.5 Inch NaCl 0.9% (NS) bolus infusion 1,000 mL aspirin tablet 325 mg enoxaparin (LOVENOX) injection 40 mg acetaminophen (TYLENOL) tablet 650 mg ondansetron (ZOFRAN (PF)) injection 4 mg aspirin chewable tablet 81 mg First Provider Eval:ED Events Date/Time Event User Comments 02/25/23 1507 Medical Screening Begins BAIRON MEYERS MD -- 02/25/23 1507 First Provider Evaluation BAIRON MEYERS MD -- No notes of EC Admission Criteria type on file.ED COURSEDiagnosis/Impression as of 02/25/23 1805 Weakness Stroke activated. 18:00 PT having normal ROM, and states paresthesia has been intermittent for two weeks. PT to be admitted for obs to hospitalist, Dr. Patton. Procedures: ProceduresMDM:Medical Decision Vzvksx83 yo F presents with chest pain, dizziness and L sided paresthesiaProblems Addressed:Weakness: acute illness or injury Details: Pt improved s/p treatment. ct head noncontrast and head/neck angiogram unremarkableAmount and/or Complexity of Data ReviewedLabs: ordered. Details: troponin wnlRadiology: ordered. Details: ct head/neck angiogram unremarkableDiscussion of management or test interpretation with external provider(s): Dr. Patton to admit pt for observationRiskDecision regarding hospitalization.Risk Details: Pt in agreement with admission. Flowsheet Documentation: Scoring Tools: No data recorded Disposition/Condition:ED Disposition ED Disposition Admit - Observation Condition -- Comment Is (or was) this a planned re-admission?: No Treatment Team: [facility] [[id number]] Is this patient COVID positive or a patient under investigation (PUI)?: No Discharge Medications:Patient's Medications START taking these medications No medications on file CONTINUE taking these medications which have NOT CHANGED ALBUTEROL 90 MCG/ACTUATION INHALER Inhale 2 Puffs every 4 (four) hours as needed for Wheezing or Shortness of Breath. AUG BETAMETHASONE DIPROPIONATE 0.05 % CREAM Apply to area(s) 2 (two) times daily. Avoid face, armpits, and groin. AUG BETAMETHASONE DIPROPIONATE 0.05 % CREAM Apply to area(s) 2 (two) times daily. BENZONATATE 100 MG CAPSULE Take 1 capsule by mouth 3 (three) times daily as needed for Cough. DICYCLOMINE 20 MG TABLET Take 1 tablet by mouth every 6 (six) hours as needed for Abdominal pain. DOCUSATE CALCIUM 240 MG CAPSULE Take 1 capsule by mouth once daily as needed for Constipation. DULOXETINE 20 MG CAPSULE Take 1 capsule by mouth daily. FERROUS SULFATE 325 MG (65 MG IRON) TABLET Take 1 tablet by mouth 2 (two) times daily. HYDROCHLOROTHIAZIDE 25 MG TABLET Take 0.5 tablets by mouth daily. HYDROXYZINE 25 MG TABLET Take 1 tablet by mouth every 6 (six) hours as needed for Anxiety. HYDROXYZINE 25 MG TABLET Take 1 tablet by mouth 2 (two) times daily as needed for Anxiety. IBUPROFEN 600 MG TABLET Take 1 tablet by mouth every 6 (six) hours as needed (Pain). Take with food or milk. NAPROXEN 500 MG TABLET Take 1 tablet by mouth 2 (two) times daily with meals. ONDANSETRON (ZOFRAN) 4 MG TABLET Take 1 tablet by mouth every 8 (eight) hours as needed for Nausea and Vomiting (N/V). PANTOPRAZOLE (PROTONIX) 40 MG EC TABLET Take 1 tablet by mouth in the morning. PANTOPRAZOLE 40 MG EC TABLET Take 1 tablet by mouth 2 (two) times daily. VITAMIN W/FA TABLET Take 1 tablet by mouth daily. TRIAMCINOLONE ACETONIDE 0.1 % OINTMENT Apply to area(s) 2 (two) times daily. As needed for rash. Avoid face, armpits, and groin. TRIAMCINOLONE ACETONIDE 0.1 % OINTMENT Apply to area(s) 2 (two) times daily. START taking Modified Medications as Prescribed No medications on file STOP taking these medications No medications on file Follow-up:Electronically signed by: Bairon Meyers MD02/25/23 180 [id number] Emergency department SnumIU1088-24-80F57:08:06Physician Emergency department [id number] for patient yjai41857-4Hexghoilt department NoteLN[address] Uy[id number] FEFVXMSAROYUJMYGKTAC5497-40-64J13:08:0 [id number]|[id number] [id number] [facility]
[2024-01-26] MEDS ORDERED: NA CHLORIDE 0.9% 1,000 ML ONE (20:48)
[2024-01-26] MEDS ORDERED: ONDANSETRON 4 MG/2 ML VIAL ONE (20:48)
[2024-01-26 20:55] LABS: Absolute Basophils 0.1 K/uL (0-0.5); Absolute Eosinophils 0.1 K/uL (0-0.5); Absolute Lymphocytes (CBC) 3.7 K/uL (0.7-4.9); Absolute Monocytes 0.5 K/uL (0.1-1.3); Absolute Neutrophil 7.8 K/uL (1.8-8.0); Basophils % 0.7 % (0-1.3); Eosinophils % 0.6 % (0-4.4); Hematocrit 38.6 % (36.0-45.0); Hemoglobin 12.7 g/dL (12.0-15.0); Lymphocytes % 30.3 % (15.3-44.8); MCH 28.2 pg (27.0-35.0); MCHC 32.8 g/dL (32.0-36.0); MPV 7.5 fL (7.6-11.3); Monocytes % 4.4 % (3.3-12.3); Nucleated Red Blood Cells % 0.1 % (0-0); Platelets 325 thou/uL (152-406); RBC Red Blood Cell Count 4.49 M/uL (3.86-4.86); Red Cell Distribution Width 14.5 % (12.1-15.2)
[2024-01-26 21:12] LABS: Albumin 3.4 g/dL (3.4-5.0); Albumin/Globulin Ratio 0.7 (1.1-1.8); Bilirubin Total 0.5 mg/dL (0.2-1.0); Globulin 4.8 g/dL (2.3-3.5); Protein, Total 8.2 g/dL (6.4-8.2)
[2024-01-26 22:46] LABS: Specific Gravity > 1.030 (1.005-1.030)
[2024-01-26 22:48] LABS: Specific Gravity > 1.030 (1.005-1.030); Urine Bacteria <20 /HPF (<20); Urine Bilirubin NEGATIVE (Negative); Urine Blood Negative (Negative); Urine Clarity Turbid (Clear); Urine Color Yellow (Yellow); Urine Culture Reflex Order NOT NEEDED; Urine Glucose NEGATIVE (Negative); Urine Ketones TRACE (Negative); Urine Microscopic Reflex YN ORDER UMIC; Urine Mucus 3+ /HPF (None Seen); Urine Nitrite NEGATIVE (Negative); Urine Protein 1+ (Negative); Urine RBC <5 /HPF (None Seen); Urine Urobilinogen 1+ (Normal); Urine WBC <5 /HPF (<5)
[2024-01-27] MEDS ORDERED: DICYCLOMINE HCL 10 MG CAP ONE (00:33)
[2024-01-27] MEDS ORDERED: SIMETHICONE 80 MG CHEWABLE TAB ONE (00:33)
[2024-01-27] MEDS ORDERED: KETOROLAC 30 MG/ML INJ ONE (00:33)
--- NOTE | 2024-01-27 01:33 | EDPHYS ---
[facility] Name: Red Slater Age: 44 yrs Sex: Female : 1980 Arrival Date: 01/26/2024 Time: 20:10 Bed 5 Private MD: ED Physician Doug Sunshine HPI: 01/26 00:56 This 44 yrs old Female presents to ER via Ambulatory with complaints of kb Abdominal Pain, Nausea. 00:56 Pt is a 44 year old female who presents for diffuse abd pain, nausea, diarrhea, and kb bloating for 4 days. States she has had similar pain in the past that resolved after passing gas, but she hasn't been able to pass gas. Denies vomiting, fever, urinary symptoms. 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 - Infectious Disease History:: Denies. - Social history:: Smoking status: Patient denies any tobacco usage or history of. ROS: 01/26 00:56 Constitutional: As per HPI kb Exam: 00:57 Constitutional: This is a well developed, well nourished patient who is awake, alert, kb and in no acute distress. Head/Face: Normocephalic, atraumatic. ENT: Moist Mucous membranes Cardiovascular: Regular rate Respiratory: Respirations even and unlabored. No increased work of breathing. Talking in full sentences Skin: Warm, dry with normal turgor. Normal color. MS/ Extremity: Pulses equal, no cyanosis. Neurovascular intact. Full, normal range of motion. Neuro: Awake and alert, GCS 15, oriented to person, place, time, and situation. Moves all extremities. Normal gait. 00:57 Abdomen/GI: Inspection: obese Bowel sounds: normal, Palpation: soft, in all quadrants, mild abdominal tenderness, in all quadrants, Vital Signs: 01/25 20:17 BP 195 / 88; Pulse 99; Resp 18; Temp 97(TE); Pulse Ox 97% on R/A; Weight 158.3 kg; tl4 Height 5 ft. 5 in. ; Pain 8/10; 21:27 BP 140 / 86; Pulse 83; Resp 18; Temp 98; Pulse Ox 97% ; Pain 0/10; jh8 23:25 BP 138 / 58; Pulse 89; Resp 18; Temp 98.3; Pulse Ox 98% on R/A; rg5 01/26 00:54 BP 118 / 64; Pulse 68; Resp 18; Pulse Ox 98% ; Pain 5/10; jh8 01:40 BP 129 / 82; Pulse 88; Resp 16; Temp 98.6; Pulse Ox 98% ; Pain 3/10; jh8 01/25 20:17 Body Mass Index 58.08 (158.30 kg, 165.1 cm) tl4 01/25 20:17 Pain Scale: Adult tl4 21:27 Pain Scale: Adult jh8 01/26 00:54 Pain Scale: Adult jh8 01:40 Pain Scale: Adult 8 Meli Coma Score: 01/25 23:28 Eye Response: spontaneous(4). Motor Response: obeys commands(6). Verbal Response: rg5 oriented(5). Total: 15. MDM: 20:19 Patient medically screened. kb 01/26 00:57 Data reviewed: vital signs, nurses notes. kb 01:31 Differential diagnosis: bowel obstruction, cholecystitis, Cholelithiasis, kb diverticulitis, gastritis, non-specific abd pain, pancreatitis, urinary tract infection. Counseling: I had a detailed discussion with the patient and/or guardian regarding the historical points, exam findings, and any diagnostic results supporting the discharge/admit diagnosis, lab results, radiology results, the need for outpatient follow up, a supervisor melt house, to return to the emergency department if symptoms worsen or persist or if there are any questions or concerns that arise at home. 01/25 20:20 Order name: CBC with Diff; Complete Time: 21:02 kb 01/25 20:20 Order name: CMP; Complete Time: 21:22 kb 01/25 20:20 Order name: Lipase; Complete Time: 21:22 kb 01/25 20:20 Order name: Test, Urine; Complete Time: 22:54 kb 01/25 20:20 Order name: Urinalysis w/ reflexes; Complete Time: 22:54 kb 01/25 20:20 Order name: CT Abd/Pelvis - IV Contrast Only kb 01/26 00:51 Order name: Renal Ultrasound-Complete EDMS 01/25 20:20 Order name: IV Saline Lock; Complete Time: 20:51 kb 01/25 20:20 Order name: Labs collected and sent; Complete Time: 20:51 kb Administered Medications: 01/25 20:57 Drug: NS 0.9% IV 1000 ml IV at 1 bolus Per protocol; 1000 mL bolus Route: IV; Rate: 1 jh8 bolus; Site: left antecubital; 23:18 Follow up: Response: No adverse reaction; IV Status: Completed infusion 8 01/26 01:22 Follow up: IV Status: Completed infusion 5 01/25 20:57 Drug: Ondansetron IVP 4 mg IVP once; over 2 minutes Route: IVP; Site: left antecubital; [facility] 23:18 Follow up: Response: No adverse reaction [facility] 01/26 00:34 Drug: Ketorolac IVP 15 mg IVP once Route: IVP; Site: left antecubital; jh8 01:21 Follow up: Response: No adverse reaction rg5 00:35 Drug: Simethicone PO 240 mg PO once Route: PO; jh8 01:21 Follow up: Response: No adverse reaction rg5 00:35 Drug: Dicyclomine PO 20 mg PO once Route: PO; jh8 01:21 Follow up: Response: No adverse reaction rg5 Disposition: 05:24 Co-signature as Attending Physician, Doug Sunshine MD I agree with the assessment sp4 and plan of care. I reviewed the patient's care provided by the Advanced Practice Provider and agree with the diagnosis and treatment plan. Disposition Summary: 01/27/24 01:32 Discharge Ordered Notes: Location: Home kb Condition: Stable kb Diagnosis - Abdominal pain, Generalized kb - Other ovarian cysts kb - Renal lesion kb Followup: kb - With: Emergency Department - When: As needed - Reason: Worsening of condition Followup: kb - With: Private Physician - When: 2 - 3 days - Reason: Recheck today's complaints, Continuance of care, Re-evaluation by your physician Discharge Instructions: - Discharge Summary Sheet kb - Abdominal Pain, Adult, Qffr-xg-Gtty kb - Ovarian Cyst, Nwld-vg-Avxf kb Forms: - Medication Reconciliation Form kb - Antibiotic Education kb - Prescription Opioid Use kb - Patient Portal Instructions kb - Leadership Thank You Letter kb Prescriptions: - simethicone 180 mg Oral capsule - take 1 capsule ORAL route daily; 20 capsule; Refills: 0, Product Selection kb Permitted - Zofran 4 mg Oral tablet - take 1 tablet ORAL route every 6 hours As needed; 12 tablet; Refills: 0, kb Product Selection Permitted - Diclofenac Sodium 75 mg Oral tablet, delayed release (enteric coated) - take 1 tablet ORAL route 2 times per day As needed; 30 tablet; Refills: 0, kb Product Selection Permitted - dicyclomine 20 mg Oral tablet - take 1 tablet ORAL route 4 times per day As needed; 20 tablet; Refills: 0, kb Product Selection Permitted Signatures: Dispatcher [employer] Belle Flores FNP-C FNP-Ckb Potepalov, Sergey, MD MD sp4 Grupo Kemp RN RN tl4 Armando Zayas RN RN jh8 Garrison Field RN rg5 Corrections: (The following items were deleted from the chart) 01/25 20:21 20:20 CBC+H.LAB.BRZ ordered. EDMS EDMS 20:21 20:21 COMPREHENSIVE METABOLIC PANEL+C.LAB.BRZ ordered. EDMS EDMS 20:21 20:21 LIPASE+C.LAB.BRZ ordered. EDMS EDMS 20:21 20:21 Test, Urine+UC.LAB.BRZ ordered. EDMS EDMS 20:21 20:21 Urinalysis+U.LAB.BRZ ordered. EDMS EDMS 01/26 00:02 01/25 21:17 TEST, SERUM+SC.LAB.BRZ ordered. EDMS EDMS 01/26 00:51 00:20 Rp Exam Limited+US.RAD.BRZ ordered. EDMS EDMS
--- NOTE | 2024-01-27 01:33 | ER ---
Nurse's Notes [facility] Name: Red Slater Age: 44 yrs Sex: Female : 1980 Arrival Date: 01/26/2024 Time: 20:10 Bed 5 Private MD: Diagnosis: Abdominal pain, Generalized;Other ovarian cysts;Renal lesion Presentation: 01/25 20:17 Chief complaint: Patient states: Pt c/o generalized abdominal pain, bloating, nausea, tl4 and diarrhea x 3 days. Pt states she is unable to pass gas. Coronavirus screen: At this time, the client does not indicate any symptoms associated with coronavirus-19. Ebola Screen: No symptoms or risks identified at this time. Initial Sepsis Screen: Does the patient meet any 2 criteria? No. Patient's initial sepsis screen is negative. Does the patient have a suspected source of infection? No. Patient's initial sepsis screen is negative. Risk Assessment: Do you want to hurt yourself or someone else? Patient reports no desire to harm self or others. Onset of symptoms was January 23, 2024. 20:17 Method Of Arrival: Ambulatory tl4 20:17 Acuity: PETE 3 tl4 Triage Assessment: 20:21 General: Appears uncomfortable, Behavior is calm, cooperative. Pain: Complains of pain tl4 in abdomen. EENT: No signs and/or symptoms were reported regarding the EENT system. Neuro: Level of Consciousness is awake, alert, obeys commands, Oriented to person, place, time, situation, Moves all extremities. Full function Speech is normal. Cardiovascular: Capillary refill < 3 seconds Patient's skin is warm and dry. Respiratory: Airway is patent Respiratory effort is even, unlabored, Respiratory pattern is regular, symmetrical, Breath sounds are clear bilaterally. GI: Reports lower abdominal pain, upper abdominal pain, bloating, diarrhea, nausea. : No signs and/or symptoms were reported regarding the genitourinary system. Derm: No signs and/or symptoms reported regarding the dermatologic system. Musculoskeletal: No signs and/or symptoms reported regarding the musculoskeletal system. 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 - Infectious Disease History:: Denies. - Social history:: Smoking status: Patient denies any tobacco usage or history of. Screenin:28 [facility] ED Fall Risk Assessment (Adult) History of falling in the last 3 months, rg5 including since admission No falls in past 3 months (0 pts) Confusion or Disorientation No (0 pts) Intoxicated or Sedated No (0 pts) Impaired Gait No (0 pts) Mobility Assist Device Used No (0 pt) Altered Elimination No (0 pt) Score/Fall Risk Level 0 - 2 = Low Risk. Abuse screen: Denies threats or abuse. Nutritional screening: No deficits noted. Tuberculosis screening: No symptoms or risk factors identified. Assessment: 21:28 General: Appears distressed, uncomfortable, obese, well groomed. Pain: Denies pain. jh8 Neuro: Level of Consciousness is awake, alert, obeys commands, Oriented to person, place, time, situation. Cardiovascular: Capillary refill < 3 seconds Patient's skin is warm and dry. Respiratory: Airway is patent Respiratory effort is even, unlabored, Respiratory pattern is regular, symmetrical. GI: Abdomen is round obese, nausea. : Denies pain urinary frequency. 23:28 Reassessment: Patient and/or family updated on plan of care and expected duration. Pain rg5 level reassessed. Patient is alert, oriented x 3, equal unlabored respirations, skin warm/dry/pink. 01/26 01:40 GI: Bowel sounds present X 4 quads. Abd is non tender. 8 Vital Signs: 01/25 20:17 BP 195 / 88; Pulse 99; Resp 18; Temp 97(TE); Pulse Ox 97% on R/A; Weight 158.3 kg; tl4 Height 5 ft. 5 in. ; Pain 8/10; 21:27 BP 140 / 86; Pulse 83; Resp 18; Temp 98; Pulse Ox 97% ; Pain 0/10; 8 23:25 BP 138 / 58; Pulse 89; Resp 18; Temp 98.3; Pulse Ox 98% on R/A; rg5 01/26 00:54 BP 118 / 64; Pulse 68; Resp 18; Pulse Ox 98% ; Pain 5/10; jh8 01:40 BP 129 / 82; Pulse 88; Resp 16; Temp 98.6; Pulse Ox 98% ; Pain 3/10; jh8 01/25 20:17 Body Mass Index 58.08 (158.30 kg, 165.1 cm) tl4 01/25 20:17 Pain Scale: Adult tl4 21:27 Pain Scale: Adult jh8 01/26 00:54 Pain Scale: Adult jh8 01:40 Pain Scale: Adult jh8 Meli Coma Score: 01/25 23:28 Eye Response: spontaneous(4). Motor Response: obeys commands(6). Verbal Response: rg5 oriented(5). Total: 15. ED Course: 20:12 Patient arrived in ED. im 20:19 Triage completed. tl4 20:19 Belle Leahy FNP-C [facility]. kb 20:19 Doug Sunshine MD is Attending Physician. kb 20:22 Arm band placed on right wrist. tl4 20:50 Inserted saline lock: 20 gauge in left antecubital area, using aseptic technique. Blood rc3 collected. 20:51 CBC with Diff Sent. rc3 20:51 CMP Sent. rc3 20:51 Lipase Sent. rc3 23:15 CT Abd/Pelvis - IV Contrast Only In Process Unspecified. EDMS 23:[address] rg5 23:28 Patient has correct armband on for positive identification. Bed in low position. Call rg5 light in reach. Side rails up X2. Door closed. Noise minimized. Warm blanket given. Head of bed lowered. 23:28 No provider procedures requiring assistance completed. IV is patent, is intact, Flushed rg5 left antecubital. 01/26 00:51 Renal Ultrasound-Complete In Process Unspecified. EDMS 01:42 Provided Education on: dc. [facility] 01:42 IV discontinued. [facility] Administered Medications: 01/25 20:57 Drug: NS 0.9% IV 1000 ml IV at 1 bolus Per protocol; 1000 mL bolus Route: IV; Rate: 1 jh8 bolus; Site: left antecubital; 23:18 Follow up: Response: No adverse reaction; IV Status: Completed infusion [facility] 01/26 01:22 Follow up: IV Status: Completed infusion 5 01/25 20:57 Drug: Ondansetron IVP 4 mg IVP once; over 2 minutes Route: IVP; Site: left antecubital; [facility] 23:18 Follow up: Response: No adverse reaction 8 01/26 00:34 Drug: Ketorolac IVP 15 mg IVP once Route: IVP; Site: left antecubital; 8 01:21 Follow up: Response: No adverse reaction rg5 00:35 Drug: Simethicone PO 240 mg PO once Route: PO; 8 01:21 Follow up: Response: No adverse reaction rg5 00:35 Drug: Dicyclomine PO 20 mg PO once Route: PO; 8 01:21 Follow up: Response: No adverse reaction [facility] Medication: 01/25 23:28 VIS not applicable for this client. rg5 Outcome: 01/26 01:32 Discharge ordered by . franco 01:41 Discharged to home ambulatory, [facility] 01:41 Condition: good 01:41 Discharge instructions given to patient, Instructed on discharge instructions, follow up and referral plans. medication usage, Demonstrated understanding of instructions, follow-up care, medications, Prescriptions given X 2, 01:50 Patient left the ED. [facility] Signatures: Dispatcher [employer] EDMS Belle Leahy, DEMONSTRATOR KNITTING-C DEMONSTRATOR KNITTING-Kandi Phelps Toni, RN RN tl4 Vivian Simpson3 Armando Zayas RN RN jh8 Garrison Field RN RN rg5
[2024-01-27 02:45] VITALS: BP 129/82; TEMP 98.6; O2SAT 98
--- NOTE | 2024-01-27 15:17 | RAD REPORT ---
EXAM DESCRIPTION: US - Renal Ultrasound-Complete - 01/27/2024 12:49 am CLINICAL HISTORY: Female, 44 years old, left renal lesion COMPARISON: Previously CT abdomen/pelvis TECHNIQUE: Real-time sonographic evaluation of the kidneys and bladder was performed with static rock ge acquisition for documentation. FINDINGS: The right kidney measures 1.9 x 5.4 x 5.4 cm and the left kidney measures 12.2 x 6.6 x 6.4 cm. Exophytic from the left superior renal pole and corresponding to the CT finding, a hypoechoic le luan with mild posterior acoustic enhancement and a small amount of internal echoes measures 2.4 x 2. 1 x 2.4 cm. The kidneys are otherwise normal in size, position, and echogenicity. No hydronephrosis, hydroureter, or cortical defect visualized. The urinary bladder is well distended and within normal limits without wall thickening or filling def ect. At least one ureteral jet is visualized, laterality not labeled. IMPRESSION: Corresponding to the left renal finding on CT, an exophytic 2.4 cm lesion with mild inte rnal sonographic complexity cannot be definitively characterized as a simple cyst. Follow-up outpatie nt renal MRI recommended on a nonemergent basis. Electronically signed by: Adarsh Cantor MD 01/27/2024 01:27 AM CDT Due to temporary technical issues with the PACS/Fluency reporting system, reports are being signed by the in house radiologists without review as a courtesy to insure prompt reporting. The interpreting radiologist is fully responsible for the content of the report
--- NOTE | 2024-01-27 15:38 | RAD REPORT ---
EXAM DESCRIPTION: CT - Abdomen Pelvis W Contrast - 01/27/2024 6:25 am CLINICAL HISTORY: ABD PAIN COMPARISON: None. TECHNIQUE: CT ABDOMEN PELVIS WITH IV CONTRAST on 01/26/2024 8:20 PM CDT This exam was performed according to our departmental dose-optimization program, which includes autom ated exposure control, adjustment of the mA and/or kV according to patient size and/or use of iterati ve reconstruction technique. FINDINGS: Lower lungs are clear. Abdomen: Liver is fatty in attenuation. There is no biliary dilatation. Gallbladder is not seen. The pancreas and spleen are normal in appearance. There is a 2.1 cm posterior mid to upper pole hypodense left renal lesion, not a simple cyst. Adrenal glands are normal. There is no hydronephrosis bilatera lly. Abdominal aorta is normal in course and caliber without aneurysm. There is no free air. There is no r etroperitoneal adenopathy. Pelvis: There is no bowel obstruction. Urinary bladder is unremarkable. There is no free fluid. Uteru s is normal in size. Right ovarian cyst measures 4.6 cm. Appendix is normal. Skeleton: There are no acute osseous findings. No suspicious bony lesions. IMPRESSION: No definite acute inflammatory process. Indeterminate left renal lesion. Recommend ultrasound. Right ovarian simple-appearing cyst measuring 4.6 cm. No follow-up imaging is recommended. Reference: JACR 2019;17(2):[id number] Electronically signed by: Dallin Tolentino MD 01/26/2024 11:38 PM CDT RP Due to temporary technical issues with the PACS/Fluency reporting system, reports are being signed by the in house radiologists without review as a courtesy to insure prompt reporting. The interpreting radiologist is fully responsible for the content of the report
== END 2024-01-27 01:50 | disposition home or self-care (01) ==
LOC: ER 20:10
DX: R10.84 Generalized abdominal pain (principal); N83.299 Other ovarian cyst, unspecified side; N28.9 Disorder of kidney and ureter, unspecified
CPT/HCPCS: 85025; 81001; 36415; 81025; 83690; 80053; 74177; 76770; Q9967; J2405; J7030

== ENCOUNTER 2024-04-12 19:03 | Emergency (ER) | payer OTHER ==
--- OUTSIDE RECORDS SUMMARY | 2024-04-12 19:14 | XMS REPORT | Continuity of Care Document ---
Author Name Unknown Address [address] [facility] [address]. [address] [place] [address] [facility] thconnect Address [address] [facility]. [address] [place] [address] Care Team Providers Care Engraver Rubber Name Role Phone SABINO SIMMONS Primary Care Physician EKTA Hare Attending Clinician VIOLET Lam Attending Clinician Unavailab JAVI Dickerson Attending Clinician Unavailab ROMINA Garner Attending Clinician Unavailable ROMINA ALBRIGHT Attending Clinician Unavailable ANTOINETTE MCCULLOUGH Attending Clinician UnavailLIANET Magallanes Attending Clinician Unavailable LIANET MCKEON Attending Clinician Unavailable ROSA LEMUS Attending Clinician Unavailable SABINO SIMMONS Attending Clinician Unavailab SABINO Carreon Attending Clinician Unavailab le Doctor Unassigned, Willow Attending Clinician U jimailable LEA BARRETO Attending Clinician Unavail able Martha LOMELI, Violet Miguel Attending Clinician [phone] LESLYE COPE Attending Clinician UnavailLESLYE Dias Attending Clinician Unavailannia Elise RN, Tala Chau Attending Clinician Unavaila TAYLOR Ross Attending Clinician Unavailable TAYLOR MALCOLM Attending Clinician Unavailable Rod MEASUREMENT ANALYST, Nissa K Attending Clinician Unavail able Lacie PT, Gabrielle Attending Clinician UnavailLeslye Dias MD Attending Clinician [phone] Samuel CRISOSTOMOWRomina Attending Clinician + [phone], Ad[facility] Lab Attending Clinician Unavailable MICHAEL BETANCUR Attending Clinician Unavaila dionicio Doctor Unassigned, Willow Attending Clinician U [facility] Pcp-Lab Attending Clinician Unavailable Michael Betancur MD Attending Clinician [phone] Nabila Pedro MD Attending Clinician [phone] TAYLOR BYNUM Attending Clinician Unavailab Alice Dalton MD Attending Clinician [phone] Taylor Bynum DO Attending Clinician + [phone] Priscilla LOMELI, Javi Wallace Attending Clinician +[phone] ALICE PENA Attending Clinician Unavailable Tamie MCKAY, Lolita Larios Attending Clinician [phone] Austin Salomon PA-C Attending Clinician [phone] Erika Knutson MD Attending Clinician + [phone] Antoinette Mccullough MD Attending Clinician +[phone] Marcos Rodriguez MD Attending Clinician [phone] JANI RODRIGUEZ Attending Clinician Unavailable KATE SIERRA Attending Clinician Unavailab FARIHA Nesbitt Attending Clinician Unavail able FARIHA YOUNGBLOOD Attending Clinician Unavail able KASSY GUTIERREZ Attending Clinician Unavailab Kassy Lang DO Attending Clinician + [phone] Slim ADAM, Isha Attending Clinician +[phone] Boaz Delgado MD Attending Clinician BOAZ DELGADO Attending Clinician Unavailable ZEYNEP MITCHELL Attending Clinician Unavailable Zeynep Madsen Attending Clinician + [phone] JUSTEN PATTON Attending Clinician Unavailable Bairon Meyers MD Attending Clinician + [phone] Justen Patton DO Attending Clinician [phone] DAMION HAMLIN Attending Clinician Unavailable Damion Hamlin MD Attending Clinician [phone] ZEV FERNÁNDEZ Attending Clinician Unavailable Rasta Anne DO Attending Clinician [phone] Panda Flanagan MD Attending Clinician +[phone] PANDA FLANAGAN Attending Clinician Unavailable Only, Ang Db Test Attending Clinician Unavailannia Brown PA-C, Austin Attending Clinician [phone] AUSTIN BROWN Attending Clinician Unavailable SAYDA ZAFAR Attending Clinician Unavailable Sayda Bello Attending Clinician + [phone] UNKNOWN, ATTENDING Attending Clinician Unavailab Randy Orta MD Attending Clinician +[phone] BRANDON RIVERA Attending Clinician Unavailabl Brandon Gil MD Attending Clinician +- [phone] Unknown, Attending Attending Clinician Unavailab Sherry Del Toro MD Attending Clinician +[phone] SCARLET CUELLAR Attending Clinician Unavailable SELINA BUCKLEY Attending Clinician Unavailable CASSIUS ZULUAGA Attending Clinician Unavailable CAROLYN HERRERA Attending Clinician Unavailab bettye Vasquez [facility] Dermatology Nurse Attending Clinician Unavailable Carolyn Herrera MD Attending Clinician [phone] Elvi Maya MD Attending Clinician +[phone] ELVI MAYA Attending Clinician Unavailable Radiology Attending Clinician Unavailable RADIOLOGY Attending Clinician Unavailable Lauri Natarajan Attending Clinician [phone] LAURI CURRY Attending Clinician Unavailable SIENNA RUFF Attending Clinician Unavailable Selina Arechiga Attending Clinician [phone] Visit/Fp, [facility] Nurse Attending Clinician Un available ABRAM LYNNE Attending Clinician UnavailAbram Bell MD Attending Clinician +[phone] Herminio Isaac MD Attending Clinician +[phone] Cristina Parra PA-C Attending Clinician + [phone] Nayeli MCKAY, Kala Renner Attending Clinician Clair vailable CRISTINA PARRA Attending Clinician Unavailable DASH MALCOLM Attending Clinician Unavailable Dsah Dow Attending Clinician [phone] Ondina Palacio MD Attending Clinician [phone] ONDINA PALACIO Attending Clinician [facility]available [facility] Unavailable Mili Watt Attending Clinician + [phone] MILI VILLEGAS Attending Clinician Unavailab bettye TRAN, Franny Attending Clinician [phone] Ultrasound, [facility] Attending Clinician Unavaila Darline Stone Attending Clinician Unavailabl e 1, [facility] Attending Clinician Unavaila Conrado Abraham MD Attending Clinician + [phone] [facility]-Lab Attending Clinician Unavailable Jared Bay MD Attending Clinician [phone] JARED BAY Attending Clinician Unavailable Maximus Villavicencio DO Attending Clinician [phone] Fellow, [facility] Attending Clinician Un available Nette Cadet MD Attending Clinician +[phone] NETTE CADET Attending Clinician Unavailable NETTE CADET Attending Clinician Unavailable Juanjose Ross DO Attending Clinician +[phone] Matthew El MD Attending Clinician +[phone] MATTHEW EL Attending Clinician Unavailable Jean-Paul MCKAY, Glenna Attending Clinician Unavailabl andrea Ch MD, Gwendolyn Attending Clinician +[phone] EKTA ESPINOZA Admitting Clinician UnaONDINA Lomabrdo Admitting Clinician Unavailable TAYLOR MALCOLM Admitting Clinician Unavailable MICHAEL BETANCUR Admitting Clinician Unavaila TAYLOR House Admitting Clinician Unavailab ALICE Dalton Admitting Clinician Unavailable ANTOINETTE MCCULLOUGH Admitting Clinician UnavailAntoinette Lopez MD Admitting Clinician KATE SIERRA Admitting Clinician Unavailab JUSTEN Perez Admitting Clinician Unavailable Justen Patton DO Admitting Clinician SURAJDAMION LÓPEZ S Admitting Clinician Unavailable LAURI CURRY Admitting Clinician Unavailable ABRAM LYNNE Admitting Clinician UnavailAbram Bell MD Admitting Clinician Ondina Palacio MD Admitting Clinician Payers Payer Name Policy Type Policy Number Effective Date Expirati on Date Source [facility] [id number] 2022 00:00:00 Problems Condition Name Condition Details Condition Category Status Onset Date Resolution Date Last Treatment Date Treating Clinician Comments Source 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 Epigastric pain Epigastric pain Disease Active 9-26 00:00: 00 [facility] Loss of weight Loss of weight Disease Active 8- 00:00: 00 [facility] Nausea Nausea Disease Active 8- 00:00: 00 [facility] Abdominal pain, generalize d Abdominal pain, generalize d Disease Active 8-17 00:00: 00 [facility] Atypical chest pain Atypical chest pain Disease Active 8- 00:00: 00 [facility] Essential hypertensi on Essential hypertensi on Disease Active 8- 00:00: 00 [facility] Dyslipidem ia Dyslipidem ia Disease Active 8- 00:00: 00 [facility] Elevated LFTs Elevated LFTs Disease Active 8- 00:00: 00 [facility] Weakness Weakness Disease Active 8 00:00: 00 [facility] 38 weeks gestation of 38 weeks gestation of Disease Active 03-27 00:00: 00 [facility] Multiparit y Multiparit y Disease Active 03-27 00:00: 00 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 Advanced maternal age in multigravi da, third trimester Advanced maternal age in multigravi da, third trimester Disease Active 03-27 00:00: 00 [facility] Abnormal glucose tolerance test (GTT) during , antepartum Abnormal glucose tolerance test (GTT) during , antepartum Disease Active 03-27 00:00: 00 [facility] Abnormal glucose tolerance test (GTT) during , antepartum Abnormal glucose tolerance test (GTT) during , antepartum Disease Active 03-27 00:00: 00 [facility] Urinary tract infection in mother during third trimester of Urinary tract infection in mother during third trimester of Disease Active 02-14 00:00: 00 [facility] Preexistin g hypertensi on complicati ng , antepartum Preexistin g hypertensi on complicati ng , antepartum Disease Active 02-14 00:00: 00 [facility] Rash Rash Disease Active 10-19 00:00: 00 [facility] Bullous disorder Bullous disorder Disease Active 10-19 00:00: 00 [facility] Irregular menstrual cycle Irregular menstrual cycle Disease Active 09-29 00:00: 00 [facility] Vaginitis and vulvovagin itis Vaginitis and vulvovagin itis Disease Active 09-29 00:00: 00 Overview: Formattin g of this note might be different from the original. 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 Need for prophylact ic vaccinatio n with combined diphtheria -tetanus-p ertussis (DTP) vaccine Need for prophylact ic vaccinatio n with combined diphtheria -tetanus-p ertussis (DTP) vaccine Disease Active 09-29 00:00: 00 [facility] Morbid obesity Morbid obesity Disease Active 09-29 00:00: 00 [facility] AN (acanthosi s nigricans) AN (acanthosi s nigricans) Disease Active 09-29 00:00: 00 [facility] Headache Headache Disease Active 09-29 00:00: 00 Overview: Formattin g of this note might be different from the original. 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 Allergies, Adverse Reactions, Alerts Allergy Name Allergy Type Status Severity Reaction(s) Onset Date Inactive Date Treating Clinician Comments Source NO KNOWN ALLERGIE S Drug Class Active [facility] Social History Social Habit Start Date Stop Date Quantity Comments Source Gender identity [facility] Sexual orientation [facility] ASSERTION [facility] Alcoholic beverage intake 2024-01-27 00:00:00 2024-01-27 00:00:00 Ex-drinker (finding) [facility] Alcohol intake 2023-11-26 00:00:00 2023-11-26 00:00:00 Ex-drinker (finding) [facility] History of Social function 2023-11-26 00:00:00 2023-11-26 00:00:00 [facility] Tobacco use and exposure 2023-02-25 00:00:00 2023-02-25 00:00:00 Former smokeless tobacco user [facility] Exposure to SARS-CoV-2 (event) 2022-05-11 00:00:00 2022-05-21 13:28:00 Not sure [facility] History of tobacco use 2011-12-27 00:00:00 User of smokeless tobacco [facility] Sex assigned at 1980 00:00:00 1980 00:00:00 [facility] Smoking Status Start Date Stop Date Source Ex-smoker 2023-02-25 00:00:00 2023-02-25 00:00:00 U [facility] Medications Ordered Medication Name Filled Medication Name Start Date Stop Date Current Medication? Ordering Clinician Indication Dosage Frequency Signature (SIG) Comments Components Source famotidine 40 mg tablet 03-22 00:00: 00 Yes [id number] 40mg Take 1 tablet by mouth in the morning. [facility] azelastine 137 mcg (0.1 %) nasal spray 03-22 00:00: 00 Yes [id number] 1{spray } Use 1 Grady in each nostril in the morning and 1 Grady in the evening. Use good[employer]NearMe coupon if ruiz is high [facility] mupirocin 2 % ointment 03-22 00:00: 00 Yes [id number] Apply inside both nasal cavities with clean finger 2x daily after using saline spray/Alfonso med sinus rinse with distilled water. Continue regularly for 6 weeks, then as needed [facility] naproxen 500 mg tablet 02-19 00:00: 00 Yes [id number] 500mg Take 1 tablet by mouth 2 (two) times daily with meals as needed for Pain (scale 4-6). [facility] cetirizine 10 mg tablet 02-19 00:00: 00 Yes [id number] 10mg Take 1 tablet by mouth at bedtime as needed for Allergies or Runny nose. [facility] amoxicillin -clavulanat e (AUGMENTIN) 875-125 mg per tablet 02-19 00:00: 00 02-27 04:59 :00 Yes [id number] 1{tbl} Take 1 tablet by mouth in the morning and 1 tablet in the evening. Do all this for [address] [facility] ketorolac (TORADOL) injection 60 mg 02-17 19:45: 00 02-17 19:08 :00 No [id number] 60mg 60 mg, Intramuscu lar, ONCE, 1 dose, On Fri02/18/24 at 1445, Routine [facility] pantoprazol e 40 mg EC tablet 02-17 00:00: 00 Yes [id number] 40mg Take 1 tablet by mouth in the morning. [facility] sucralfate 1 gram tablet 02-17 00:00: 00 Yes 1g Take 1 tablet by mouth before meals and at bedtime. [facility] ergocalcife rol, vitamin d2, (VITAMIN D2) 1,250 mcg (50,000 unit) capsule 02-17 00:00: 00 Yes [id number] 90990C Take 1 capsule by mouth weekly. [facility] hydroCHLORO thiazide 25 mg tablet 02-17 00:00: 00 Yes [id number] 25mg Take 1 tablet by mouth in the morning. [facility] famotidine 40 mg tablet 01-30 00:00: 00 02-17 00:00 :00 No [id number] 40mg Take 1 tablet by mouth in the morning. [facility] diphenhydrA MINE:lidoca ine 2% viscous:maa lox 1:1:1 ([facility]) oral suspension 15 mL 01-27 02:15: 00 01-27 02:45 :00 No 15mL 15 mL, Oral, ONCE, 1 dose, On Fri01/27/24 at 2115, Routine [facility] ketorolac (TORADOL) injection 30 mg 01-27 00:30: 00 01-26 23:57 :00 No 30mg 30 mg, Slow IV Push, ONCE, 1 dose, On Fri01/27/24 at 1930, Routine [facility] iopamidol (ISOVUE 370-500 mL) injection 125 mL 01-27 00:29: 00 01-27 00:29 :00 No [id number] 125mL 125 mL, Intravenou s, ONCE, 1 dose, On Fri01/27/24 at 1945, Routine [facility] NaCl 0.9% (NS) bolus infusion 1,000 mL 01-26 22:15: 00 01-27 02:50 :00 No 1000mL at 999 mL/hr, 1,000 mL, IV Piggyback, ONCE, 1 dose, On Fri01/27/24 at 1715, STAT [facility] proMETHazin e 25 mg tablet 01-26 00:00: 00 Yes [id number] 25mg Take 1 tablet by mouth every 6 (six) hours as needed for Nausea and Vomiting (N/V). [facility] sucralfate 1 gram tablet 01-26 00:00: 00 02-17 00:00 :00 No [id number] 1g Take 1 tablet by mouth before meals and at bedtime. [facility] esomeprazol e 40 mg capsule 01-26 00:00: 00 01-30 00:00 :00 No [id number] 40mg Take 1 capsule by mouth daily with breakfast. [facility] ergocalcife rol, vitamin d2, (VITAMIN D2) 1,250 mcg (50,000 unit) capsule 11-27 00:00: 00 02-17 00:00 :00 No [id number] 37975S Take 1 capsule by mouth weekly. [facility] diphenhydrA MINE (BENADRYL) 25 mg capsule 11-25 00:00: 00 Yes [id number] 25mg Take 1 capsule by mouth every 6 (six) hours as needed for Allergies. [facility] lidocaine 5 % ointment 11-25 00:00: 00 Yes [id number] Apply to area(s) 2 (two) times daily. [facility] triamcinolo ne acetonide 0.1 % cream 11-25 00:00: 00 Yes [id number] Apply to area(s) 2 (two) times daily. [facility] fluticasone propionate 50 mcg/actuati on nasal spray 11-25 00:00: 00 03-22 00:00 :00 No [id number] 1{spray } Use 1 Grady in each nostril in the morning. [facility] pantoprazol e 40 mg EC tablet 11-25 00:00: 00 02-17 00:00 :00 No [id number] 40mg Take 1 tablet by mouth in the morning. [facility] pantoprazol e 40 mg EC tablet 10-09 00:00: 00 11-25 00:00 :00 No [id number] 40mg Take 1 tablet by mouth in the morning. [facility] fluticasone propionate 50 mcg/actuati on nasal spray 10-09 00:00: 00 11-25 00:00 :00 No [id number] 1{spray } Use 1 Grady in each nostril in the morning. [facility] ketorolac (TORADOL) injection 15 mg 10-02 22:15: 00 10-02 21:47 :00 No 15mg 15 mg, Slow IV Push, ONCE, 1 dose, On Fri10/03/23 at 1615, MARGARITA [facility] iopamidol (ISOVUE 370-500 mL) injection 85 mL 2022-07 02:45: 00 05-07 02:45 :00 No [id number] 85mL 85 mL, Intravenou s, ONCE, 1 dose, On Fri05/06/23 at 2145, Routine [facility] ondansetron (ZOFRAN (PF)) injection 4 mg 2022-07 01:45: 00 05-07 02:54 :00 No 4mg 4 mg, Slow IV Push, ONCE, 1 dose, On Fri05/06/23 at 2045, MARGARITA [facility] pantoprazol e 40 mg EC tablet 2022-07 00:00: 00 07-31 05:59 :00 No 40mg Take 1 tablet by mouth in the morning for [address] [facility] pantoprazol e (PROTONIX) EC tablet 40 mg 2022-07 14:00: 00 Yes 40mg 40 mg, Oral, DAILY, First dose on Fri04/30/23 at 0900, Until Discontinu ed, Routine [facility] gabapentin (NEURONTIN) capsule 300 mg 2022-07 0 01:00: 00 Yes 300mg 300 mg, Oral, TID, First dose on Fri04/29/23 at 2000, Until Discontinu ed, [facility] capsule 2022-07 0-04 00:00: 00 10-09 00:00 :00 No [id number] 300mg Take 1 capsule by mouth in the morning and 1 capsule at noon and 1 capsule in the evening. [facility] ondansetron 4 mg tablet 2022-07 0- 00:00: 00 05-15 04:59 :00 No [id number] 4mg Take 1 tablet by mouth every 8 (eight) hours as needed for Nausea and Vomiting (N/V) for up to [address] [facility] dicyclomine 20 mg tablet 2022-07 0 00:00: 00 05-15 04:59 :00 No [id number] 20mg Take 1 tablet by mouth 4 (four) times daily as needed for Abdominal pain for up to [address] [facility] methocarbam oL 500 mg tablet 2022-07 0 00:00: 05-05 04:59 :00 No [id number] 500mg Take 1 tablet by mouth 4 (four) times daily for [address] [facility] Pantoprazol e 40 mg delayed-rel ease suspension 2022-07 0 00:00: 00 05-01 00:00 :00 No [id number] 40mg Take 40 mg by mouth in the morning and 40 mg in the evening. Do all this for [address] [facility] methocarbam oL (ROBAXIN) tablet 500 mg 2022-07 0 21:00: 00 Yes 500mg 500 mg, Oral, QID, First dose on Fri04/29/23 at 1600, Until Discontinu ed, Routine [facility] piperacilli n-tazobacta m (ZOSYN) 3.375 g in NaCl 0.9% (NS) 100 mL MINI-BAG 2022-07 003 07:15: 00 05-02 07:14 :00 No 3.375g 3.375 g, IV Piggyback, Q8H ABX, 9 doses, First dose on Fri04/29/23 at 0215, Last dose on Fri05/01/23 at 1815, Administer over 4 Hours, 100 mL
Reas on for Anti-Infec tive: Empiric Therapy for Suspected Infection< br>Empiric Therapy Site: Skin / Soft tissue
Duration of therapy: 72 hours [facility] piperacilli n-tazobacta m (ZOSYN) 3.375 g in NaCl 0.9% (NS) 100 mL MINI-BAG 2022-07 23:30: 00 04-29 00:00 :00 No 3.375g 3.375 g, IV Piggyback, ONCE, 1 dose, On Fri04/28/23 at 1830, Administer over 30 Minutes, 100 mL
Reas on for Anti-Infec tive: Empiric Therapy for Suspected Infection< br>Empiric Therapy Site: Skin / Soft tissue
Duration of therapy: 72 hours [facility] ondansetron (ZOFRAN) tablet 4 mg 04-25 20:13: 34 Yes 4mg 4 mg, Oral, Q8HPRN, Starting on Fri04/25/23 at 1513, Until Discontinu ed, Routine, Nausea and Vomiting (N/V) [facility] sucralfate (CARAFATE) tablet 1 g 04-24 16:30: 00 Yes 1g 1 g, Oral, AC+HS, First dose on Fri04/24/23 at 1130, Until Discontinu ed, [facility] 100 mg/mL suspension 1,000 mg 04-23 02:00: 00 04-24 13:09 :41 No 1g 1,000 mg (1 g), Oral, AC+HS, First dose on Fri04/22/23 at 2100, Until Discontinu ed, Routine [facility] iopamidol (ISOVUE 370-500 mL) injection 125 mL 04-23 01:13: 00 04-23 01:14 :00 No [id number] 125mL 125 mL, Intravenou s, ONCE, 1 dose, On Fri04/22/23 at 2030, Routine [facility] pantoprazol e (PROTONIX) injection 40 mg 04-23 01:00: 00 Yes 40mg 40 mg, Slow IV Push, Q12H, First dose (after last modificati on) on Fri04/22/23 at 2000, Until Discontinu ed [facility] maalox:diph enhydrAMINE :lidocaine 2 % viscous 1:1:1 ([facility] BL[facility]) oral suspension 15 mL 04-23 01:00: 00 Yes 15mL 15 mL, Oral, Q12H, First dose (after last reorder) on Fri04/22/23 at 2000, Until Discontinu ed, Routine [facility] maalox:diph enhydrAMINE :lidocaine 2 % viscous 1:1:1 ([facility] HWCONFLUENCE BLM) oral suspension 15 mL 04-22 19:29: 24 Yes 15mL 15 mL, Oral, QDAILYPRN, Starting on Fri04/22/23 at 1429, Until Discontinu ed, Routine, abd pain [facility] acetaminoph en (TYLENOL) tablet 650 mg 04-22 18:45: 00 Yes 650mg 650 mg, Oral, Q6H, First dose (after last modificati on) on Fri04/22/23 at 1345, Until Discontinu ed, Routine [facility] maalox:diph enhydrAMINE :lidocaine 2 % viscous 1:1:1 ([facility]) oral suspension 15 mL 04-22 11:15: 00 04-22 11:33 :00 No 15mL 15 mL, Oral, ONCE, 1 dose, On Fri04/22/23 at 0630, Routine [facility] HYDROcodone -acetaminop hen (NORCO 5) 5-325 mg tablet 1 tablet 04-22 08:50: 53 Yes 1{tbl} 1 tablet, Oral, Q6HPRN, Starting on Fri04/22/23 at 0350, Until Discontinu ed, Routine, Pain (scale 7-10) [facility] enoxaparin (LOVENOX) injection 40 mg 04-22 08:45: 00 Yes 40mg 40 mg, Subcutaneo us, Q24H, First dose on Fri04/22/23 at 0345, Until Discontinu ed, Routine [facility] pantoprazol e (PROTONIX) injection 40 mg 04-22 08:00: 00 04-22 16:04 :07 No 40mg 40 mg, Slow IV Push, Q24H, 3 doses, First dose on Fri04/22/23 at 0300, Last dose on Fri04/24/[address] [facility] maalox:diph enhydrAMINE :lidocaine 2 % viscous 1:1:1 [facility] oral suspension 15 mL 04-22 06:00: 00 04-22 06:09 :00 No 15mL 15 mL, Oral, ONCE, 1 dose, On Fri04/22/23 at 0100, Routine [facility] maalox:diph enhydrAMINE :lidocaine 2 % viscous 1:1:1 ([facility] BLM) oral suspension 15 mL 04-21 23:45: 00 04-22 00:39 :00 No 15mL 15 mL, Oral, ONCE, 1 dose, On Fri04/21/23 at 1845, Routine [facility] NaCl 0.9% (NS) bolus infusion 1,000 mL 04-21 23:30: 00 04-22 01:59 :00 No 1000mL at 999 mL/hr, 1,000 mL, IV Infusion, ONCE, 1 dose, On Fri04/21/23 at 1830, MARGARITA [facility] Pantoprazol e 40 mg delayed-rel ease suspension 03-13 14:52: 41 03-13 00:00 :00 No 40mg Take 40 mg by mouth in the morning. [facility] peg-electro lyte soln 236-22.74-6 .74 -5.86 gram solution 03-13 00:00: 00 10-09 00:00 :00 No [id number] Take as directed before colonoscop y [facility] Pantoprazol e 40 mg delayed-rel ease suspension 03-13 00:00: 00 04-30 00:00 :00 No [id number] 40mg Take 40 mg by mouth in the morning and 40 mg in the evening. [facility] maalox:diph enhydrAMINE :lidocaine 2 % viscous 1:1:1 ([facility]) oral suspension 15 mL 03-12 01:30: 00 03-12 01:35 :00 No 15mL 15 mL, Oral, ONCE, 1 dose, On Fri03/11/23 at 2030, Routine [facility] dicyclomine (BENTYL) tablet 20 mg 03-12 01:30: 00 03-12 01:34 :00 No 20mg 20 mg, Oral, ONCE, 1 dose, On Fri03/11/23 at 2030[facility] 0.9% (NS) bolus infusion 1,000 mL 03-11 23:45: 00 03-12 01:58 :00 No 1000mL at 999 mL/hr, 1,000 mL, IV Infusion, ONCE, 1 dose, On Fri03/11/23 at 1845, [facility] ondansetron (ZOFRAN (PF)) injection 4 mg 03-11 23:00: 00 03-12 00:32 :00 No 4mg 4 mg, Slow IV Push, ONCE, 1 dose, On Fri03/11/23 at 1800, [facility] ondansetron 4 mg disintegrat ing tablet 03-11 00:00: 00 10-09 00:00 :00 No [id number] 4mg Take 1 tablet by mouth every 8 (eight) hours as needed for Nausea and Vomiting (N/V). [facility] dicyclomine 20 mg tablet 03-11 00:00: 00 04-30 00:00 :00 No [id number] 20mg Take 1 tablet by mouth 4 (four) times daily as needed for Abdominal pain. [facility] pantoprazol e (PROTONIX) 40 mg EC tablet 02-27 00:00: 00 02-26 00:00 :00 No [id number] 40mg Take 1 tablet by mouth in the morning for [address] [facility] aspirin 81 mg chewable tablet 02-27 00:00: 00 02-26 00:00 :00 No [id number] 81mg Take 1 tablet by mouth in the morning for [address] [facility] maalox:diph enhydrAMINE :lidocaine 2 % viscous 1:1:1 (FIRST-MOUT HWASH BLM) oral suspension 15 mL 02-26 17:30: 00 02-26 17:41 :00 No 15mL 15 mL, Oral, ONCE, 1 dose, On Fri02/26/23 at 1230, Routine [facility] cefTRIAXone (ROCEPHIN) 1,000 mg in NaCl 0.9% (NS) 100 mL MINI-BAG 02-26 14:45: 00 02-26 16:14 :00 No 1000mg 1,000 mg, IV Piggyback, Q24H ABX, 1 dose, First dose on Fri02/26/23 at 0945, Administer over 30 Minutes, 100 mL
Reas on for Anti-Infec tive: Empiric Therapy for Suspected Infection< br>Empiric Therapy Site: Urine
D uration of therapy: [address] [facility] pantoprazol e (PROTONIX) EC tablet 40 mg 02-26 14:00: 00 Yes 40mg 40 mg, Oral, DAILY, First dose on Fri02/26/23 at 0900, Until Discontinu ed, Routine [facility] aspirin chewable tablet 81 mg 02-26 14:00: 00 Yes 81mg 81 mg, Oral, DAILY, First dose on Fri02/26/23 at 0900, Until Discontinu ed, Routine [facility] enoxaparin (LOVENOX) injection 40 mg 02-26 14:00: 00 Yes 40mg 40 mg, Subcutaneo us, DAILY, First dose on Fri02/26/23 at 0900, Until Discontinu ed, Routine [facility] dicyclomine (BENTYL) tablet 20 mg 02-26 04:22: 14 Yes 20mg 20 mg, Oral, Q6HPRN, Starting on Fri02/25/23 at 2322, Until Discontinu ed, Routine, Abdominal pain [facility] sulfamethox azole-trime thoprim (BACTRIM DS) 800-160 mg per tablet 02-26 00:00: 00 02-26 00:00 :00 No [id number] 1{tbl} Take 1 tablet by mouth in the morning and 1 tablet in the evening. Do all this for [address] [facility] atorvastati n 20 mg tablet 02-26 00:00: 00 02-26 00:00 :00 No [id number] 20mg Take 1 tablet by mouth at bedtime for [address] [facility] sucralfate 1 gram tablet 02-26 00:00: 00 02-26 00:00 :00 No [id number] 1g Take 1 tablet by mouth before meals and at bedtime for [address] [facility] aspirin tablet 325 mg 02-25 23:00: 00 02-25 22:02 :00 No 325mg 325 mg, Oral, ONCE, 1 dose, On Fri02/25/23 at 1800, [facility] ondansetron (ZOFRAN (PF)) injection 4 mg 02-25 22:57: 52 Yes 4mg 4 mg, Slow IV Push, Q6HPRN, Starting on Fri02/25/23 at 1757, Until Discontinu ed, Routine, Nausea and Vomiting (N/V) [facility] acetaminoph en (TYLENOL) tablet 650 mg 02-25 22:57: 45 Yes 650mg 650 mg, Oral, Q6HPRN, Starting on Fri02/25/23 at 1757, Until Discontinu ed, Routine, Pain (scale 1-3) [facility] NaCl 0.9% (NS) bolus infusion 1,000 mL 02-25 21:45: 00 02-25 21:51 :00 No 1000mL at 999 mL/hr, 1,000 mL, IV Infusion, ONCE, 1 dose, On Fri02/25/23 at 1645, STAT [facility] nitroglycer in (NITROL) 2 % ointment 0.5 Inch 02-25 21:45: 00 02-25 21:51 :00 No .5[in_u s] 0.5 Inch, Transderma l (Apply To Skin), ONCE, 1 dose, On Fri02/25/23 at 1645, [facility]ARGARITA [facility] iopamidol (ISOVUE 370-500 mL) injection 100 mL 02-25 20:49: 00 02-25 20:48 :00 No [id number] 100mL 100 mL, Intravenou s, ONCE, 1 dose, On Fri02/25/23 at 1615, Routine [facility] NaCl 0.9% (NS) injection 5 mL 02-25 20:15: 02 Yes 5mL 5 mL, Slow IV Push, PRN - SEE INSTRUCTIO NS, Starting on Fri02/25/23 at 1515, Until Discontinu ed, [address] [facility] maalox:diph enhydrAMINE :lidocaine 2 % viscous 1:1:1 (FIRST-MOUT HWASH BLM) oral suspension 15 mL 02-03 04:15: 00 02-03 04:27 :00 No 15mL 15 mL, Oral, ONCE, 1 dose, On Fri02/02/23 at 2315, Routine [facility] iopamidol (ISOVUE 370-500 mL) injection 100 mL 02-03 02:45: 00 02-03 01:46 :00 No [id number] 100mL 100 mL, Intravenou s, ONCE, 1 dose, On Fri02/02/23 at 2145, Routine [facility] ketorolac (TORADOL) injection 30 mg 02-03 02:15: 00 02-03 01:29 :00 No 30mg 30 mg, Slow IV Push, ONCE, 1 dose, On 02/02/23 at 2115, [facility] maalox:diph enhydrAMINE :lidocaine 2 % viscous 1:1:1 (FIRST-MOUT HWASH BLM) oral suspension 15 mL 02-03 01:30: 00 02-03 01:29 :00 No 15mL 15 mL, Oral, ONCE, 1 dose, On Fri02/02/23 at 2030, [facility] pantoprazol e (PROTONIX) 40 mg EC tablet 02-02 00:00: 00 Yes [id number] 40mg Take 1 tablet by mouth in the morning. [facility] dicyclomine 20 mg tablet 02-02 00:00: 00 Yes [id number] 20mg Take 1 tablet by mouth every 6 (six) hours as needed for Abdominal pain. [facility] ondansetron (ZOFRAN) 4 mg tablet 02-02 00:00: 00 Yes [id number] 4mg Take 1 tablet by mouth every 8 (eight) hours as needed for Nausea and Vomiting (N/V). [facility] albuterol 90 mcg/actuati on inhaler 2021-07 00:00: 00 02-25 00:00 :00 No [id number] 2{puff} Inhale 2 Puffs every 4 (four) hours as needed for Wheezing or Shortness of Breath. [facility] benzonatate 100 mg capsule 2021-07 00:00: 00 02-25 00:00 :00 No [id number] 100mg Take 1 capsule by mouth 3 (three) times daily as needed for Cough. [facility] dextrometho sandi-emma enesin 10-100 mg/5 mL solution 04-23 00:00: 00 05-01 04:59 :00 No [id number] 5mL Take 5 mL by mouth every 6 (six) hours as needed for Cough for up to 7 days. [facility] flut[facility] propionate 50 mcg/actuati on nasal spray 04-23 00:00: 05-01 04:59 :00 No [id number] 1{spray } Use 1 Grady in each nostril in the morning for [address] [facility] triamcinolo ne acetonide 0.1 % ointment 12-13 00:00: 00 02-25 00:00 :00 No [id number] Apply to area(s) 2 (two) times daily. [facility] aug betamethaso ne dipropionat e 0.05 % cream 12-13 00:00: 00 02-25 00:00 :00 No [id number] Apply to area(s) 2 (two) times daily. [facility] benzonatate (TESSALON PERLES) 100 mg capsule 08-23 00:00: 00 05-21 00:00 :00 No [id number] 100mg Take 1 capsule by mouth every 8 (eight) hours as needed for Cough. [facility] pantoprazol e 40 mg EC tablet 08-21 00:00: 00 02-25 00:00 :00 No [id number] 40mg Take 1 tablet by mouth 2 (two) times daily. [facility] aug betamethaso ne dipropionat e 0.05 % cream 08-07 00:00: 00 02-25 00:00 :00 No [id number] Apply to area(s) 2 (two) times daily. Avoid face, armpits, and groin. [facility] triamcinolo ne acetonide 0.1 % ointment - 00:00: 00 02-25 00:00 :00 No [id number] Apply to area(s) 2 (two) times daily. As needed for rash. Avoid face, armpits, and groin. [facility] hydroCHLORO thiazide 25 mg tablet 2020-07 2-30 00:00: 00 02-25 00:00 :00 No [id number] 12.5mg Take 0.5 tablets by mouth daily. [facility] naproxen 500 mg tablet 2020-07 00:00: 02-25 00:00 :00 No [id number] 500mg Take 1 tablet by mouth 2 (two) times daily with meals. [facility] hydrOXYzine 25 mg tablet 2020-07 00:00: 00 02-25 00:00 :00 No [id number] 25mg Take 1 tablet by mouth 2 (two) times daily as needed for Anxiety. [facility] DULoxetine 20 mg capsule 2020-07 00:00: 00 02-25 00:00 :00 No [id number] 20mg Take 1 capsule by mouth daily. [facility] hydroCHLORO thiazide 25 mg tablet 2020-07 00:00: 00 07-26 00:00 :00 No [id number] 12.5mg Take 0.5 tablets by mouth daily. [facility] hydrOXYzine 25 mg tablet 2020-07 0 00:00: 00 02-25 00:00 :00 No [id number] 25mg Take 1 tablet by mouth every 6 (six) hours as needed for Anxiety. [facility] fluconazole (DIFLUCAN) 150 mg tablet 04-23 00:00: 00 08-21 00:00 :00 No [id number] Take 1 tablet by mouth every 3 days, for [address] [facility] aug betamethaso ne dipropionat e 0.05 % cream 04-23 00:00: 00 08-06 00:00 :00 No [id number] Apply to area(s) 2 (two) times daily. Avoid face, armpits, and groin. [facility] triamcinolo ne acetonide 0.1 % ointment 04-23 00:00: 00 08-06 00:00 :00 No [id number] Apply to area(s) 2 (two) times daily. As needed for rash. Avoid face, armpits, and groin. [facility] pantoprazol e 40 mg EC tablet 04-06 00:00: 00 08-21 00:00 :00 No [id number] 40mg Take 1 tablet by mouth daily. [facility] vitamin w/FA tablet 03-29 00:00: 00 Yes [id number] 1{tbl} Take 1 tablet by mouth daily. [facility] docusate calcium 240 mg capsule 03-29 00:00: 00 02-25 00:00 :00 No [id number] 240mg Take 1 capsule by mouth once daily as needed for Constipati on. [facility] ferrous sulfate 325 mg (65 mg iron) tablet 03-29 00:00: 00 02-25 00:00 :00 No [id number] 325mg Take 1 tablet by mouth 2 (two) times daily. [facility] ibuprofen 600 mg tablet 03-29 00:00: 00 02-25 00:00 :00 No [id number] 600mg Take 1 tablet by mouth every 6 (six) hours as needed (Pain). Take with food or milk. [facility] vitamin w/FA tablet 03-29 00:00: 00 02-25 00:00 :00 No [id number] 1{tbl} Take 1 tablet by mouth daily. [facility] pantoprazol e (PROTONIX) 40 mg EC tablet -04 00:00: 00 06-06 00:00 :00 No [id number] 40mg Take 1 tablet by mouth daily. [facility] Immunizations Ordered Immunization Name Filled Immunization Name Date Status Comments Source Influenza Virus Vaccine Quad IM, Preserv and ABX Free 6 MO-64 YRS 2021-05-25 00:00:00 Completed [facility] Influenza Virus Vaccine Quad IM, Preserv and ABX Free 6 MO-64 YRS 2021-05-25 00:00:00 Completed [facility] Influenza Virus Vaccine Quad IM, Preserv and ABX Free 6 MO-64 YRS 2021-05-25 00:00:00 Completed [facility] Influenza Virus Vaccine Quad IM, Preserv and ABX Free 6 MO-64 YRS 2021-05-25 00:00:00 Completed [facility] Influenza Virus Vaccine Quad IM, Preserv and ABX Free 6 MO-64 YRS 2021-05-25 00:00:00 Completed [facility] Influenza Virus Vaccine Quad IM, Preserv and ABX Free 6 MO-64 YRS 2021-05-25 00:00:00 Completed [facility] Influenza Virus Vaccine Quad IM, Preserv and ABX Free 6 MO-64 YRS 2021-05-25 00:00:00 Completed [facility] Influenza Virus Vaccine Quad IM, Preserv and ABX Free 6 MO-64 YRS 2021-05-25 00:00:00 Completed [facility] Influenza Virus Vaccine Quad IM, Preserv and ABX Free 6 MO-64 YRS 2021-05-25 00:00:00 Completed [facility] Influenza Virus Vaccine Quad IM, Preserv and ABX Free 6 MO-64 YRS 2021-05-25 00:00:00 Completed [facility] Influenza Virus Vaccine Quad IM, Preserv and ABX Free 6 MO-64 YRS 2021-05-25 00:00:00 Completed [facility] Influenza Virus Vaccine Quad IM, Preserv and ABX Free 6 MO-64 YRS 2021-05-25 00:00:00 Completed [facility] Influenza Virus Vaccine Quad IM, Preserv and ABX Free 6 MO-64 YRS 2021-05-25 00:00:00 Completed [facility] Influenza Virus Vaccine Quad IM, Preserv and ABX Free 6 MO-64 YRS 2021-05-25 00:00:00 Completed [facility] Influenza Virus Vaccine Quad IM, Preserv and ABX Free 6 MO-64 YRS 2021-05-25 00:00:00 Completed [facility] Influenza Virus Vaccine Quad IM, Preserv and ABX Free 6 MO-64 YRS 2021-05-25 00:00:00 Completed [facility] Influenza Virus Vaccine Quad IM, Preserv and ABX Free 6 MO-64 YRS 2021-05-25 00:00:00 Completed [facility] Influenza Virus Vaccine Quad IM, Preserv and ABX Free 6 MO-64 YRS 2021-05-25 00:00:00 Completed [facility] Influenza Virus Vaccine Quad IM, Preserv and ABX Free 6 MO-64 YRS 2021-05-25 00:00:00 Completed [facility] Influenza Virus Vaccine Quad IM, Preserv and ABX Free 6 MO-64 YRS 2021-05-25 00:00:00 Completed [facility] Influenza Virus Vaccine Quad IM, Preserv and ABX Free 6 MO-64 YRS (FLUCELVAX) 2021-05-25 00:00:00 Completed [facility] TDAP 2021-01-17 00:00:00 Completed [facility] TDAP 2021-01-17 00:00:00 Completed [facility] TDAP 2021-01-17 00:00:00 Completed [facility] TDAP 2021-01-17 00:00:00 Completed [facility] TDAP 2021-01-17 00:00:00 Completed [facility] TDAP 2021-01-17 00:00:00 Completed [facility] TDAP 2021-01-17 00:00:00 Completed [facility] TDAP 2021-01-17 00:00:00 Completed [facility] TDAP 2021-01-17 00:00:00 Completed [facility] TDAP 2021-01-17 00:00:00 Completed [facility] TDAP 2021-01-17 00:00:00 Completed [facility] TDAP 2021-01-17 00:00:00 Completed [facility] TDAP 2021-01-17 00:00:00 Completed [facility] TDAP 2021-01-17 00:00:00 Completed [facility] TDAP 2021-01-17 00:00:00 Completed [facility] TDAP 2021-01-17 00:00:00 Completed [facility] TDAP 2021-01-17 00:00:00 Completed [facility] TDAP 2021-01-17 00:00:00 Completed [facility] TDAP 2021-01-17 00:00:00 Completed [facility] TDAP 2021-01-17 00:00:00 Completed [facility] TDAP 2021-01-17 00:00:00 Completed [facility] TDAP 2012-09-29 00:00:00 Completed [facility] TDAP 2012-09-29 00:00:00 Completed [facility] TDAP 2012-09-29 00:00:00 Completed [facility] TDAP 2012-09-29 00:00:00 Completed [facility] TDAP 2012-09-29 00:00:00 Completed [facility] TDAP 2012-09-29 00:00:00 Completed [facility] TDAP 2012-09-29 00:00:00 Completed [facility] TDAP 2012-09-29 00:00:00 Completed [facility] TDAP 2012-09-29 00:00:00 Completed [facility] TDAP 2012-09-29 00:00:00 Completed [facility] TDAP 2012-09-29 00:00:00 Completed [facility] TDAP 2012-09-29 00:00:00 Completed [facility] TDAP 2012-09-29 00:00:00 Completed [facility] TDAP 2012-09-29 00:00:00 Completed [facility] TDAP 2012-09-29 00:00:00 Completed [facility] TDAP 2012-09-29 00:00:00 Completed [facility] TDAP 2012-09-29 00:00:00 Completed [facility] TDAP 2012-09-29 00:00:00 Completed [facility] TDAP 2012-09-29 00:00:00 Completed [facility] TDAP 2012-09-29 00:00:00 Completed [facility] TDAP 2012-09-29 00:00:00 Completed [facility] Td 1994-07-28 00:00:00 Completed [facility] Td 1994-07-28 00:00:00 Completed [facility] Td 1994-07-28 00:00:00 Completed [facility] Td 1994-07-28 00:00:00 Completed [facility] Td 1994-07-28 00:00:00 Completed [facility] Td 1994-07-28 00:00:00 Completed [facility] Td 1994-07-28 00:00:00 Completed [facility] Td 1994-07-28 00:00:00 Completed [facility] Td 1994-07-28 00:00:00 Completed [facility] Td 1994-07-28 00:00:00 Completed [facility] TD, NOS 1994-07-28 00:00:00 Completed [facility] TD, NOS 1994-07-28 00:00:00 Completed [facility] TD, NOS 1994-07-28 00:00:00 Completed [facility] TD, NOS 1994-07-28 00:00:00 Completed [facility] TD, NOS 1994-07-28 00:00:00 Completed [facility] TD, NOS 1994-07-28 00:00:00 Completed [facility] TD, NOS 1994-07-28 00:00:00 Completed [facility] TD, NOS 1994-07-28 00:00:00 Completed [facility] TD, NOS 1994-07-28 00:00:00 Completed [facility] TD, NOS 1994-07-28 00:00:00 Completed [facility] TD, NOS 1994-07-28 00:00:00 Completed [facility] TD, NOS Unknown Completed [facility] TDAP Unknown Completed [facility] TDAP Unknown Completed [facility] Influenza Virus Vaccine Quad IM, Preserv and ABX Free 6 MO-64 YRS (FLUCELVAX) Unknown Completed [facility] TD, NOS Unknown Completed [facility] TDAP Unknown Completed [facility] TDAP Unknown Completed [facility] Influenza Virus Vaccine Quad IM, Preserv and ABX Free 6 MO-64 YRS (FLUCELVAX) Unknown Completed [facility] TD, NOS Unknown Completed [facility] TDAP Unknown Completed [facility] TDAP Unknown Completed [facility] Influenza Virus Vaccine Quad IM, Preserv and ABX Free 6 MO-64 YRS (FLUCELVAX) Unknown Completed [facility] TD, NOS Unknown Completed [facility] TDAP Unknown Completed [facility] TDAP Unknown Completed [facility] Influenza Virus Vaccine Quad IM, Preserv and ABX Free 6 MO-64 YRS (FLUCELVAX) Unknown Completed [facility] TD, NOS Unknown Completed [facility] TDAP Unknown Completed [facility] TDAP Unknown Completed [facility] TD, NOS Unknown Completed [facility] TDAP Unknown Completed [facility] TDAP Unknown Completed [facility] TD, NOS Unknown Completed [facility] TDAP Unknown Completed [facility] TDAP Unknown Completed [facility] Influenza Virus Vaccine Quad IM, Preserv and ABX Free 6 MO-64 YRS (FLUCELVAX) Unknown Completed [facility] TD, NOS Unknown Completed [facility] TDAP Unknown Completed [facility] TDAP Unknown Completed [facility] Influenza Virus Vaccine Quad IM, Preserv and ABX Free 6 MO-64 YRS (FLUCELVAX) Unknown Completed [facility] TD, NOS Unknown Completed [facility] TDAP Unknown Completed [facility] TDAP Unknown Completed [facility] Influenza Virus Vaccine Quad IM, Preserv and ABX Free 6 MO-64 YRS (FLUCELVAX) Unknown Completed [facility] TD, NOS Unknown Completed [facility] TDAP Unknown Completed [facility] TDAP Unknown Completed [facility] Influenza Virus Vaccine Quad IM, Preserv and ABX Free 6 MO-64 YRS (FLUCELVAX) Unknown Completed [facility] TD, NOS Unknown Completed [facility] TDAP Unknown Completed [facility] TDAP Unknown Completed [facility] Influenza Virus Vaccine Quad IM, Preserv and ABX Free 6 MO-64 YRS (FLUCELVAX) Unknown Completed [facility] TD, NOS Unknown Completed [facility] TDAP Unknown Completed [facility] TDAP Unknown Completed [facility] Influenza Virus Vaccine Quad IM, Preserv and ABX Free 6 MO-64 YRS (FLUCELVAX) Unknown Completed [facility] TD, NOS Unknown Completed [facility] TDAP Unknown Completed [facility] TDAP Unknown Completed [facility] Influenza Virus Vaccine Quad IM, Preserv and ABX Free 6 MO-64 YRS (FLUCELVAX) Unknown Completed [facility] TD, NOS Unknown Completed [facility] TDAP Unknown Completed [facility] TDAP Unknown Completed [facility] Influenza Virus Vaccine Quad IM, Preserv and ABX Free 6 MO-64 YRS (FLUCELVAX) Unknown Completed [facility] TD, NOS Unknown Completed [facility] TDAP Unknown Completed [facility] TDAP Unknown Completed [facility] Influenza Virus Vaccine Quad IM, Preserv and ABX Free 6 MO-64 YRS (FLUCELVAX) Unknown Completed [facility] TD, NOS Unknown Completed [facility] TDAP Unknown Completed [facility] TDAP Unknown Completed [facility] Influenza Virus Vaccine Quad IM, Preserv and ABX Free 6 MO-64 YRS (FLUCELVAX) Unknown Completed [facility] TD, NOS Unknown Completed [facility] TDAP Unknown Completed [facility] TDAP Unknown Completed [facility] Influenza Virus Vaccine Quad IM, Preserv and ABX Free 6 MO-64 YRS (FLUCELVAX) Unknown Completed [facility] TD, NOS Unknown Completed [facility] TDAP Unknown Completed [facility] TDAP Unknown Completed [facility] Influenza Virus Vaccine Quad IM, Preserv and ABX Free 6 MO-64 YRS (FLUCELVAX) Unknown Completed [facility] TD, NOS Unknown Completed [facility] TDAP Unknown Completed [facility] TDAP Unknown Completed [facility] Influenza Virus Vaccine Quad IM, Preserv and ABX Free 6 MO-64 YRS (FLUCELVAX) Unknown Completed [facility] TD, NOS Unknown Completed [facility] TDAP Unknown Completed [facility] TDAP Unknown Completed [facility] Influenza Virus Vaccine Quad IM, Preserv and ABX Free 6 MO-64 YRS (FLUCELVAX) Unknown Completed [facility] TD, NOS Unknown Completed [facility] TDAP Unknown Completed [facility] TDAP Unknown Completed [facility] Influenza Virus Vaccine Quad IM, Preserv and ABX Free 6 MO-64 YRS (FLUCELVAX) Unknown Completed [facility] TD, NOS Unknown Completed [facility] TDAP Unknown Completed [facility] TDAP Unknown Completed [facility] Influenza Virus Vaccine Quad IM, Preserv and ABX Free 6 MO-64 YRS (FLUCELVAX) Unknown Completed [facility] TD, NOS Unknown Completed [facility] TDAP Unknown Completed [facility] TDAP Unknown Completed [facility] Influenza Virus Vaccine Quad IM, Preserv and ABX Free 6 MO-64 YRS (FLUCELVAX) Unknown Completed [facility] TD, NOS Unknown Completed [facility] TDAP Unknown Completed [facility] TDAP Unknown Completed [facility] Influenza Virus Vaccine Quad IM, Preserv and ABX Free 6 MO-64 YRS (FLUCELVAX) Unknown Completed [facility] TD, NOS Unknown Completed [facility] TDAP Unknown Completed [facility] TDAP Unknown Completed [facility] Influenza Virus Vaccine Quad IM, Preserv and ABX Free 6 MO-64 YRS (FLUCELVAX) Unknown Completed [facility] TD, NOS Unknown Completed [facility] TDAP Unknown Completed [facility] TDAP Unknown Completed [facility] Influenza Virus Vaccine Quad IM, Preserv and ABX Free 6 MO-64 YRS (FLUCELVAX) Unknown Completed [facility] TD, NOS Unknown Completed [facility] TDAP Unknown Completed [facility] TDAP Unknown Completed [facility] Influenza Virus Vaccine Quad IM, Preserv and ABX Free 6 MO-64 YRS (FLUCELVAX) Unknown Completed [facility] TD, NOS Unknown Completed [facility] TDAP Unknown Completed [facility] TDAP Unknown Completed [facility] Influenza Virus Vaccine Quad IM, Preserv and ABX Free 6 MO-64 YRS (FLUCELVAX) Unknown Completed [facility] TD, NOS Unknown Completed [facility] TDAP Unknown Completed [facility] TDAP Unknown Completed [facility] Influenza Virus Vaccine Quad IM, Preserv and ABX Free 6 MO-64 YRS (FLUCELVAX) Unknown Completed [facility] TD, NOS Unknown Completed [facility] TDAP Unknown Completed [facility] TDAP Unknown Completed [facility] Influenza Virus Vaccine Quad IM, Preserv and ABX Free 6 MO-64 YRS (FLUCELVAX) Unknown Completed [facility] TD, NOS Unknown Completed [facility] TDAP Unknown Completed [facility] TDAP Unknown Completed [facility] Influenza Virus Vaccine Quad IM, Preserv and ABX Free 6 MO-64 YRS (FLUCELVAX) Unknown Completed [facility] TD, NOS Unknown Completed [facility] TDAP Unknown Completed [facility] TDAP Unknown Completed [facility] Influenza Virus Vaccine Quad IM, Preserv and ABX Free 6 MO-64 YRS (FLUCELVAX) Unknown Completed [facility] TD, NOS Unknown Completed [facility] TDAP Unknown Completed [facility] TDAP Unknown Completed [facility] Influenza Virus Vaccine Quad IM, Preserv and ABX Free 6 MO-64 YRS (FLUCELVAX) Unknown Completed [facility] TD, NOS Unknown Completed [facility] TDAP Unknown Completed [facility] TDAP Unknown Completed [facility] Influenza Virus Vaccine Quad IM, Preserv and ABX Free 6 MO-64 YRS (FLUCELVAX) Unknown Completed [facility] TD, NOS Unknown Completed [facility] TDAP Unknown Completed [facility] TDAP Unknown Completed [facility] Influenza Virus Vaccine Quad IM, Preserv and ABX Free 6 MO-64 YRS (FLUCELVAX) Unknown Completed [facility] TD, NOS Unknown Completed [facility] TDAP Unknown Completed [facility] TDAP Unknown Completed [facility] Influenza Virus Vaccine Quad IM, Preserv and ABX Free 6 MO-64 YRS (FLUCELVAX) Unknown Completed [facility] TD, NOS Unknown Completed [facility] TDAP Unknown Completed [facility] TDAP Unknown Completed [facility] Influenza Virus Vaccine Quad IM, Preserv and ABX Free 6 MO-64 YRS (FLUCELVAX) Unknown Completed [facility] TD, NOS Unknown Completed [facility] TDAP Unknown Completed [facility] TDAP Unknown Completed [facility] Influenza Virus Vaccine Quad IM, Preserv and ABX Free 6 MO-64 YRS (FLUCELVAX) Unknown Completed [facility] TD, NOS Unknown Completed [facility] TDAP Unknown Completed [facility] TDAP Unknown Completed [facility] Influenza Virus Vaccine Quad IM, Preserv and ABX Free 6 MO-64 YRS (FLUCELVAX) Unknown Completed [facility] TD, NOS Unknown Completed [facility] TDAP Unknown Completed [facility] TDAP Unknown Completed [facility] Influenza Virus Vaccine Quad IM, Preserv and ABX Free 6 MO-64 YRS (FLUCELVAX) Unknown Completed [facility] Vital Signs Vital Name Observation Time Observation Value Comments S ource Body height 2024-03-22 14:15:00 165.1 cm [facility] Body weight 2024-03-22 14:15:00 168.466 kg [facility] BMI 2024-03-22 14:15:00 61.80 kg/m2 [facility] Systolic blood pressure 2024-02-18 18:13:00 144 mm[Hg] [facility] Diastolic blood pressure 2024-02-18 18:13:00 90 mm[Hg] [facility] Heart rate 2024-02-18 18:11:00 102 /min [facility] Body temperature 2024-02-18 18:11:00 36.56 Dinorah [facility] Respiratory rate 2024-02-18 18:11:00 18 /min [facility] Body height 2024-02-18 18:11:00 165.1 cm [facility] Body weight 2024-02-18 18:11:00 164.61 kg [facility] BMI 2024-02-18 18:11:00 60.39 kg/m2 [facility] Oxygen saturation in Arterial blood by Pulse oximetry 2024-02-18 18:11:00 93 /min [facility] Systolic blood pressure 2024-01-28 01:45:00 174 mm[Hg] [facility] Diastolic blood pressure 2024-01-28 01:45:00 97 mm[Hg] [facility] Heart rate 2024-01-28 01:45:00 72 /min [facility] Respiratory rate 2024-01-28 01:45:00 18 /min [facility] Oxygen saturation in Arterial blood by Pulse oximetry 2024-01-28 01:45:00 95 /min [facility] Body temperature 2024-01-27 21:15:00 36.72 Dinorah [facility] Body weight 2024-01-27 21:15:00 158.759 kg [facility] BMI 2024-01-27 21:15:00 58.24 kg/m2 [facility] Body height 2024-01-27 21:13:00 165.1 cm [facility] Systolic blood pressure 2023-11-26 17:51:00 143 mm[Hg] [facility] Diastolic blood pressure 2023-11-26 17:51:00 99 mm[Hg] [facility] Heart rate 2023-11-26 17:47:00 95 /min [facility] Body temperature 2023-11-26 17:47:00 36.44 Dinorah [facility] Respiratory rate 2023-11-26 17:47:00 18 /min [facility] Body height 2023-11-26 17:47:00 162.6 cm [facility] Body weight 2023-11-26 17:47:00 157.171 kg [facility] BMI 2023-11-26 17:47:00 59.48 kg/m2 [facility] Oxygen saturation in Arterial blood by Pulse oximetry 2023-11-26 17:47:00 97 /min [facility] Systolic blood pressure 2023-10-10 19:40:00 113 mm[Hg] [facility] Diastolic blood pressure 2023-10-10 19:40:00 80 mm[Hg] [facility] Heart rate 2023-10-10 19:34:00 94 /min [facility] Body temperature 2023-10-10 19:34:00 35.94 Dinorah [facility] Respiratory rate 2023-10-10 19:34:00 18 /min [facility] Body height 2023-10-10 19:34:00 165.1 cm [facility] Body weight 2023-10-10 19:34:00 155.765 kg [facility] BMI 2023-10-10 19:34:00 57.14 kg/m2 [facility] Oxygen saturation in Arterial blood by Pulse oximetry 2023-10-10 19:34:00 96 /min [facility] Systolic blood pressure 2023-10-04 00:00:00 159 mm[Hg] [facility] Diastolic blood pressure 2023-10-04 00:00:00 98 mm[Hg] [facility] Heart rate 2023-10-04 00:00:00 88 /min [facility] Respiratory rate 2023-10-04 00:00:00 18 /min [facility] Oxygen saturation in Arterial blood by Pulse oximetry 2023-10-04 00:00:00 96 /min [facility] Body temperature 2023-10-03 21:06:00 37.33 Dinorah [facility] Body height 2023-10-03 21:06:00 165.1 cm [facility] Body weight 2023-10-03 21:06:00 156.491 kg [facility] BMI 2023-10-03 21:06:00 57.41 kg/m2 [facility] Systolic blood pressure 2023-05-07 03:00:00 145 mm[Hg] [facility] Diastolic blood pressure 2023-05-07 03:00:00 87 mm[Hg] [facility] Heart rate 2023-05-07 03:00:00 85 /min [facility] Respiratory rate 2023-05-07 03:00:00 16 /min [facility] Oxygen saturation in Arterial blood by Pulse oximetry 2023-05-07 03:00:00 97 /min [facility] Body temperature 2023-05-06 23:18:00 36.72 Dinorah [facility] Body height 2023-05-06 23:18:00 165.1 cm [facility] Body weight 2023-05-06 23:18:00 156.491 kg [facility] BMI 2023-05-06 23:18:00 57.41 kg/m2 [facility] Body temperature 2023-04-30 19:18:00 36.78 Dinorah [facility] Heart rate 2023-04-30 13:37:00 72 /min [facility] Respiratory rate 2023-04-30 13:37:00 16 /min [facility] Body height 2023-04-30 13:37:00 165.1 cm [facility] Body weight 2023-04-30 13:37:00 158.759 kg [facility] BMI 2023-04-30 13:37:00 58.24 kg/m2 [facility] Systolic blood pressure 2023-04-30 12:22:00 140 mm[Hg] [facility] Diastolic blood pressure 2023-04-30 12:22:00 82 mm[Hg] [facility] Oxygen saturation in Arterial blood by Pulse oximetry 2023-04-30 12:22:00 96 /min [facility] Systolic blood pressure 2023-04-29 05:25:00 142 mm[Hg] [facility] Diastolic blood pressure 2023-04-29 05:25:00 87 mm[Hg] [facility] Heart rate 2023-04-29 05:25:00 81 /min [facility] Body temperature 2023-04-29 05:25:00 36.5 Dinorah [facility] Respiratory rate 2023-04-29 05:25:00 16 /min [facility] Oxygen saturation in Arterial blood by Pulse oximetry 2023-04-29 05:25:00 93 /min [facility] Body height 2023-04-28 13:19:00 165.1 cm [facility] Body weight 2023-04-28 13:19:00 158.759 kg [facility] BMI 2023-04-28 13:19:00 58.24 kg/m2 [facility] Systolic blood pressure 2023-04-25 18:56:00 133 mm[Hg] [facility] Diastolic blood pressure 2023-04-25 18:56:00 81 mm[Hg] [facility] Heart rate 2023-04-25 18:56:00 86 /min [facility] Respiratory rate 2023-04-25 18:56:00 18 /min [facility] Oxygen saturation in Arterial blood by Pulse oximetry 2023-04-25 18:56:00 98 /min [facility] Body temperature 2023-04-25 18:26:00 36.72 Dinorah [facility] Body height 2023-04-25 16:53:00 165.1 cm [facility] Body weight 2023-04-25 16:53:00 158.759 kg [facility] BMI 2023-04-25 16:53:00 58.24 kg/m2 [facility] Systolic blood pressure 2023-04-09 00:03:00 172 mm[Hg] [facility] Diastolic blood pressure 2023-04-09 00:03:00 102 mm[Hg] [facility] Heart rate 2023-04-09 00:03:00 105 /min [facility] Body temperature 2023-04-09 00:03:00 37.22 Dinorah [facility] Respiratory rate 2023-04-09 00:03:00 18 /min [facility] Oxygen saturation in Arterial blood by Pulse oximetry 2023-04-09 00:03:00 98 /min [facility] Body height 2023-04-08 21:33:00 165.1 cm [facility] Body weight 2023-04-08 21:33:00 163.295 kg [facility] BMI 2023-04-08 21:33:00 59.91 kg/m2 [facility] Systolic blood pressure 2023-03-14 21:55:00 169 mm[Hg] [facility] Diastolic blood pressure 2023-03-14 21:55:00 109 mm[Hg] [facility] Heart rate 2023-03-14 21:55:00 97 /min [facility] Body temperature 2023-03-14 21:55:00 37.5 Dinorah [facility] Respiratory rate 2023-03-14 21:55:00 20 /min [facility] Body weight 2023-03-14 21:55:00 161.934 kg [facility] BMI 2023-03-14 21:55:00 59.41 kg/m2 [facility] Oxygen saturation in Arterial blood by Pulse oximetry 2023-03-14 21:55:00 97 /min [facility] Systolic blood pressure 2023-03-13 15:58:00 135 mm[Hg] BP recheck Dr. Smalls notified [facility] Diastolic blood pressure 2023-03-13 15:58:00 91 mm[Hg] BP recheck Dr. Smalls notified [facility] Heart rate 2023-03-13 15:58:00 85 /min [facility] Body temperature 2023-03-13 15:56:00 36.44 Dinorah [facility] Respiratory rate 2023-03-13 15:56:00 20 /min [facility] Body height 2023-03-13 15:56:00 165.1 cm [facility] Body weight 2023-03-13 15:56:00 162.206 kg [facility] BMI 2023-03-13 15:56:00 59.51 kg/m2 [facility] Oxygen saturation in Arterial blood by Pulse oximetry 2023-03-13 15:56:00 96 /min [facility] Systolic blood pressure 2023-03-12 01:00:00 131 mm[Hg] [facility] Diastolic blood pressure 2023-03-12 01:00:00 72 mm[Hg] [facility] Heart rate 2023-03-12 01:00:00 74 /min [facility] Respiratory rate 2023-03-12 01:00:00 18 /min [facility] Oxygen saturation in Arterial blood by Pulse oximetry 2023-03-12 01:00:00 98 /min [facility] Body temperature 2023-03-11 22:41:00 36.83 Dinorah [facility] Body weight 2023-03-11 22:41:00 162.388 kg [facility] BMI 2023-03-11 22:41:00 59.57 kg/m2 [facility] Systolic blood pressure 2023-02-26 21:16:00 143 mm[Hg] [facility] Diastolic blood pressure 2023-02-26 21:16:00 97 mm[Hg] [facility] Heart rate 2023-02-26 21:16:00 86 /min [facility] Body temperature 2023-02-26 21:01:00 36 Dinorah [facility] Respiratory rate 2023-02-26 21:01:00 18 /min [facility] Oxygen saturation in Arterial blood by Pulse oximetry 2023-02-26 21:01:00 95 /min [facility] Body weight 2023-02-26 08:15:00 166.47 kg [facility] BMI 2023-02-26 08:15:00 61.07 kg/m2 [facility] Body height 2023-02-26 01:35:00 165.1 cm [facility] Systolic blood pressure 2023-02-03 04:00:00 150 mm[Hg] [facility] Diastolic blood pressure 2023-02-03 04:00:00 112 mm[Hg] [facility] Heart rate 2023-02-03 04:00:00 95 /min [facility] Respiratory rate 2023-02-03 04:00:00 20 /min [facility] Oxygen saturation in Arterial blood by Pulse oximetry 2023-02-03 04:00:00 95 /min [facility] Body temperature 2023-02-03 00:27:00 37.39 Dinorah [facility] Body height 2023-02-03 00:27:00 165.1 cm [facility] Body weight 2023-02-03 00:27:00 174.136 kg [facility] BMI 2023-02-03 00:27:00 63.88 kg/m2 [facility] Systolic blood pressure 2022-05-21 18:29:00 154 mm[Hg] [facility] Diastolic blood pressure 2022-05-21 18:29:00 117 mm[Hg] [facility] Heart rate 2022-05-21 18:29:00 106 /min [facility] Body temperature 2022-05-21 18:29:00 37.22 Dinorah [facility] Respiratory rate 2022-05-21 18:29:00 22 /min [facility] Body height 2022-05-21 18:29:00 165.1 cm [facility] Body weight 2022-05-21 18:29:00 158.759 kg [facility] BMI 2022-05-21 18:29:00 58.24 kg/m2 [facility] Oxygen saturation in Arterial blood by Pulse oximetry 2022-05-21 18:29:00 95 /min [facility] Systolic blood pressure 2022-04-23 19:30:00 128 mm[Hg] [facility] Diastolic blood pressure 2022-04-23 19:30:00 85 mm[Hg] [facility] Heart rate 2022-04-23 19:28:00 90 /min [facility] Body temperature 2022-04-23 19:28:00 35.67 Dinorah [facility] Respiratory rate 2022-04-23 19:28:00 18 /min [facility] Body height 2022-04-23 19:28:00 165.1 cm [facility] Body weight 2022-04-23 19:28:00 170.099 kg [facility] BMI 2022-04-23 19:28:00 62.40 kg/m2 [facility] Oxygen saturation in Arterial blood by Pulse oximetry 2022-04-23 19:28:00 98 /min room air [facility] Procedures Procedure Date / Time Performed Performing Clinician Source URINALYSIS 2024-01-28 01:22:00 Taylor Malcolm [facility] POCT TEST 2024-01-28 01:22:00 Taylor Malcolm [facility] CT ABDOMEN PELVIS W CONTRAST 2024-01-28 00:41:02 Taylor Malcolm [facility] LIPASE 2024-01-27 23:30:00 Taylor Malcolm [facility] COMP. METABOLIC PANEL (68594) 2024-01-27 23:30:00 Taylor Malcolm [facility] CBC WITH DIFF 2024-01-27 23:30:00 Taylor Malcolm [facility] TROPONIN I 2023-10-03 21:38:00 [facility] BASIC METABOLIC PANEL (NA, K , CL, CO2, GLUCOSE, BUN, CREATININE, CA) 2023-10-03 21:38:00 [facility] CBC WITH DIFF 2023-10-03 21:38:00 [facility] XR CHEST 1 VW 2023-10-03 21:16:00 Taylor Bynum [facility] CT ABDOMEN PELVIS W CONTRAST 2023-05-07 01:53:39 Alice Pena [facility] POCT TEST 2023-05-06 23:53:00 Alice Pena [facility] LIPASE 2023-05-06 23:51:00 Alice Pena [facility] COMP. METABOLIC PANEL (22014) 2023-05-06 23:51:00 Alice Pena [facility] CBC WITH DIFF 2023-05-06 23:51:00 Alice Pena [facility] PROTHROMBIN TIME / INR 2023-05-06 23:51:00 Alice Pena [facility] ACTIVATED PARTIAL THRMPLAS CARLO 2023-04-27 0 23:51:00 Alice Pena [facility] URINALYSIS 2023-05-06 23:51:00 Alice Pena [facility] CONSENT/REFUSAL FOR DIAGNOSI S AND TREATMENT 2023-05-06 23:11:21 Doctor Unassigned, Willow [facility] MAGNESIUM 2023-04-30 18:22:00 [facility] BASIC METABOLIC PANEL (NA, K , CL, CO2, GLUCOSE, BUN, CREATININE, CA) 2023-04-30 18:22:00 Ever [facility] MAGNESIUM 2023-04-30 18:22:00 Ever [facility] BASIC METABOLIC PANEL (NA, K , CL, CO2, GLUCOSE, BUN, CREATININE, CA) 2023-04-30 18:22:00 Ever [facility] CBC WITH DIFF 2023-04-30 10:34:00 Ever [facility] CBC WITH DIFF 2023-04-30 10:34:00 Ever [facility] DUPLEX VENOUS ARM LEFT - BY VASCULAR LAB 2023-04-29 16:08:41 Ron Hurt [facility] DUPLEX VENOUS ARM LEFT - BY VASCULAR LAB 2023-04-29 16:08:41 Ron Hurt [facility] LAPAROSCOPIC ROBOTIC ASSISTE D CHOLECYSTECTOMY 2023-04-29 11:49:00 [facility] LAPAROSCOPIC ROBOTIC ASSISTE D CHOLECYSTECTOMY 2023-04-29 11:49:00 Antoinette Mccullough [facility] PHOSPHORUS 2023-04-29 09:05:00 Ron Hurt [facility] MAGNESIUM 2023-04-29 09:05:00 Ron Hurt [facility] HEPATIC FUNCTION PANEL (8007 6) (ALB,T.PRO,BILI T,BU/BC,ALT,AST,ALK PHOS) 2023-04-29 09:05:00 Ron Hurt [facility] CBC WITHOUT DIFF 2023-04-29 09:05:00 Nipper, [facility] PHOSPHORUS 2023-04-29 09:05:00 Nipper, [facility] MAGNESIUM 2023-04-29 09:05[facility] (8007 6[facility] (ALB,T.PRO,BILI T,BU/BC,ALT,AST,ALK PHOS) 2023-04-29 09:05:00 [facility] CBC WITHOUT DIFF 2023-04-29 09:05:00 [facility] HB ABO GROUPING 2023-04-28 [facility]:02[facility] HB ABO [facility] 2023-04-28 [facility] HB ABO GROUPING 2023-04-28 19:02:00 [facility] PHOSPHORUS 2023-04-28 09:26:00 Nipper [facility] MAGNESIUM 2023-04-28 09:26[facility] (8007 6) (ALB,T.PRO,BILI T,BU/BC,ALT,AST,ALK PHOS) 2023-04-28 09:26:00 [facility] BASIC METABOLIC PANEL (NA, K , CL, CO2, GLUCOSE, BUN, CREATININE, CA) 2023-04-28 09:26:00 [facility] CBC WITHOUT DIFF 2023-04-28 09:26:00 [facility] PHOSPHORUS 2023-04-28 09:26:00 Nipper, [facility] MAGNESIUM 2023-04-28 09:26:00 Nipper, [facility] HEPATIC FUNCTION PANEL (8007 6) (ALB,T.PRO,BILI T,BU/BC,ALT,AST,ALK PHOS) 2023-04-28 09:26:00 [facility]IC [facility] (NA, K , CL, CO2, GLUCOSE, BUN, CREATININE, CA) 2023-04-28 09:26:00 Nipper, [facility] CBC WITHOUT DIFF 2023-04-28 09:26:00 Nipper, [facility] PHOSPHORUS 2023-04-28 09:26:00 Nipper, [facility] MAGNESIUM 2023-04-28 09:26:00 [facility] (8007 6) (ALB,T.PRO,BILI T,BU/BC,ALT,AST,ALK PHOS) 2023-04-28 09:26:00 Nipper, [facility] BASIC METABOLIC PANEL (NA, K , CL, CO2, GLUCOSE, BUN, CREATININE, CA) 2023-04-28 09:26:00 Nipper, [facility] CBC WITHOUT DIFF 2023-04-28 09:26:00 [facility] 2023-04-27 10:46:00 Nipper, [facility] MAGNESIUM 2023-04-27 10:46:00 Nipper, [facility] HEPATIC FUNCTION PANEL (8007 6) (ALB,T.PRO,BILI T,BU/BC,ALT,AST,ALK PHOS) 2023-04-27 10:46:00 Nipper, [facility] BASIC METABOLIC PANEL (NA, K , CL, CO2, GLUCOSE, BUN, CREATININE, CA) 2023-04-27 10:46:00 Nipper, [facility] CBC WITHOUT DIFF 2023-04-27 10:46:00 Nipper, [facility] PHOSPHORUS 2023-04-27 10:46:00 Nipper, [facility] MAGNESIUM 2023-04-27 10:46:00 Nipper, [facility] HEPATIC FUNCTION PANEL (8007 6) (ALB,T.PRO,BILI T,BU/BC,ALT,AST,ALK PHOS) 2023-04-27 10:46:00 Nipper, [facility] BASIC METABOLIC PANEL (NA, K , CL, CO2, GLUCOSE, BUN, CREATININE, CA) 2023-04-27 10:46:00 Nipper, [facility] CBC WITHOUT DIFF 2023-04-27 10:46:00 Nipper, [facility] PHOSPHORUS 2023-04-27 10:46:00 Nipper, [facility] MAGNESIUM 2023-04-27 10:46:00 Nipper, [facility] HEPATIC FUNCTION PANEL (8007 6) (ALB,T.PRO,BILI T,BU/BC,ALT,AST,ALK PHOS) 2023-04-27 10:46:00 Nipper, [facility] BASIC METABOLIC PANEL (NA, K , CL, CO2, GLUCOSE, BUN, CREATININE, CA) 2023-04-27 10:46:00 Nipper, [facility] CBC WITHOUT DIFF 2023-04-27 10:46:00 Nipper, [facility] PHOSPHORUS 2023-04-26 10:34:00 Nipper, [facility] LIPASE 2023-04-26 10:34[facility]00 [facility]-26 10:34:00 [facility] [facility] HEPATIC FUNCTION PANEL (8007 6) (ALB,T.PRO,BILI T,BU/BC,ALT,AST,ALK PHOS) 2023-04-26 10:34:00 Nipper, [facility] BASIC METABOLIC PANEL (NA, K , CL, CO2, GLUCOSE, BUN, CREATININE, CA) 2023-04-26 10:34:00 Nipper, [facility] CBC WITHOUT DIFF 2023-04-26 10:34:00 Nipper, [facility] PHOSPHORUS 2023-04-26 10:34:00 Nipper, [facility] LIPASE 2023-04-26 10:34:00 [facility] 2023-04-26 10:34:00 Nipper, [facility] HEPATIC FUNCTION PANEL (8007 6) (ALB,T.PRO,BILI T,BU/BC,ALT,AST,ALK PHOS) 2023-04-26 10:34:00 Licha [facility] BASIC METABOLIC PANEL (NA, K , CL, CO2, GLUCOSE, BUN, CREATININE, CA) 2023-04-26 10:34:00 Licha, [facility] CBC WITHOUT DIFF 2023-04-26 10:34:00 Nipglynn [facility] PHOSPHORUS 2023-04-26 10:34:00 Nipglynn [facility] LIPASE 2023-04-26 10:34:00 Guba [facility] MAGNESIUM 2023-04-26 10:34:00 Licha [facility] HEPATIC FUNCTION PANEL (8007 6) (ALB,T.PRO,BILI T,BU/BC,ALT,AST,ALK PHOS) 2023-04-26 10:34:00 Licha [facility] BASIC METABOLIC PANEL (NA, K , CL, CO2, GLUCOSE, BUN, CREATININE, CA) 2023-04-26 10:34:00 Licha, [facility] CBC WITHOUT DIFF 2023-04-26 10:34:00 Licha [facility] SURGICAL PATHOLOGY EXAM 2023-04-25 18:13:00 Jennifer [facility] SURGICAL PATHOLOGY EXAM 2023-04-25 18:13:00 Jennifer [facility] ESOPHAGOGASTRODUODENOSCOPY 2023-04-25 17:40:00 Jennifer [facility] ESOPHAGOGASTRODUODENOSCOPY 2023-04-25 17:40:00 Jennifer [facility] EGD (ENDO) 2023-04-25 16:55:25 Randy Chauhan [facility] EGD (ENDO) 2023-04-25 16:55:25 Randy Chauhan [facility] EGD (ENDO) 2023-04-25 16:55:25 Randy Chauhan [facility] PHOSPHORUS 2023-04-25 10:33:00 Ron Hurt [facility] MAGNESIUM 2023-04-25 10:33:00 Nipper [facility] HEPATIC FUNCTION PANEL (8007 6) (ALB,T.PRO,BILI T,BU/BC,ALT,AST,ALK PHOS) 2023-04-25 10:33:00 Nipglynn [facility] BASIC METABOLIC PANEL (NA, K , CL, CO2, GLUCOSE, BUN, CREATININE, CA) 2023-04-25 10:33:00 Nipper, [facility] CBC WITHOUT DIFF 2023-04-25 10:33:00 Nipglynn [facility] PHOSPHORUS 2023-04-25 10:33:00 Nipper [facility] MAGNESIUM 2023-04-25 10:33:00 Nipglynn [facility] HEPATIC FUNCTION PANEL (8007 6) (ALB,T.PRO,BILI T,BU/BC,ALT,AST,ALK PHOS) 2023-04-25 10:33:00 Nipglynn [facility] BASIC METABOLIC PANEL (NA, K , CL, CO2, GLUCOSE, BUN, CREATININE, CA) 2023-04-25 10:33:00 Nipglynn, [facility] CBC WITHOUT DIFF 2023-04-25 10:33:00 Nipper [facility] PHOSPHORUS 2023-04-25 10:33:00 Nipper, [facility] MAGNESIUM 2023-04-25 10:33:00 Nipglynn [facility] HEPATIC FUNCTION PANEL (8007 6) (ALB,T.PRO,BILI T,BU/BC,ALT,AST,ALK PHOS) 2023-04-25 10:33:00 Nipper, [facility] BASIC METABOLIC PANEL (NA, K , CL, CO2, GLUCOSE, BUN, CREATININE, CA) 2023-04-25 10:33:00 Nipper, [facility] CBC WITHOUT DIFF 2023-04-25 10:33:00 [facility] ENDOSCOPY PROCEDURE DOCUMENTATION 04-25 05:01:00 Doctor Unassigned, Willow [facility] ENDOSCOPY PROCEDURE DOCUMENTATION 04-25 05:01:00 Doctor Unassigned, Willow [facility] ENDOSCOPY PROCEDURE DOCUMENTATION 04-25 05:01:00 Doctor Unassigned, Willow [facility] POCT TEST 2023-04-25 00:00:00 Dottie [facility] POCT TEST 2023-04-25 00:00:00 Dottie [facility] POCT TEST 2023-04-25 00:00:00 Dottie [facility] PHOSPHORUS 2023-04-24 10:22:00 Nipglynn, [facility] MAGNESIUM 2023-04-24 10:22:00 Nipper, [facility] HEPATIC FUNCTION PANEL (8007 6) (ALB,T.PRO,BILI T,BU/BC,ALT,AST,ALK PHOS) 2023-04-24 10:22:00 Nipglynn [facility] BASIC METABOLIC PANEL (NA, K , CL, CO2, GLUCOSE, BUN, CREATININE, CA) 2023-04-24 10:22:00 Nipper, [facility] CBC WITHOUT DIFF 2023-04-24 10:22:00 Nipper, [facility] PHOSPHORUS 2023-04-24 10:22:00 Nipper, [facility] MAGNESIUM 2023-04-24 10:22:00 Nipper, [facility] HEPATIC FUNCTION PANEL (8007 6) (ALB,T.PRO,BILI T,BU/BC,ALT,AST,ALK PHOS) 2023-04-24 10:22:00 Nipper, [facility] BASIC METABOLIC PANEL (NA, K , CL, CO2, GLUCOSE, BUN, CREATININE, CA) 2023-04-24 10:22:00 Nipper, [facility] CBC WITHOUT DIFF 2023-04-24 10:22:00 Nipper, [facility] PHOSPHORUS 2023-04-24 10:22:00 Nipper, [facility] MAGNESIUM 2023-04-24 10:22:00 Nipper, [facility] HEPATIC FUNCTION PANEL (8007 6) (ALB,T.PRO,BILI T,BU/BC,ALT,AST,ALK PHOS) 2023-04-24 10:22:00 [facility], [facility] BASIC METABOLIC PANEL (NA, K , CL, CO2, GLUCOSE, BUN, CREATININE, CA) 2023-04-24 10:22:00 Nipformerly [facility], [facility] CBC WITHOUT DIFF 2023-04-24 10:22:00 Nipper, [facility] PHOSPHORUS 2023-04-23 09:58:00 Nipper, [facility] MAGNESIUM 2023-04-23 09:58:00 Nipformerly [facility], [facility] HEPATIC FUNCTION PANEL (8007 6) (ALB,T.PRO,BILI T,BU/BC,ALT,AST,ALK PHOS) 2023-04-23 09:58:[facility] (NA, K , CL, CO2, GLUCOSE, BUN, CREATININE, CA) 2023-04-23 09:58:00 Nipper, [facility] CBC WITHOUT DIFF 2023-04-23 09:58:00 Nipper, [facility] PHOSPHORUS 2023-04-23 09:58:00 Nipper, [facility] MAGNESIUM 2023-04-23 09:58:00 Nipformerly [facility], [facility] HEPATIC FUNCTION PANEL (8007 6) (ALB,T.PRO,BILI T,BU/BC,ALT,AST,ALK PHOS) 2023-04-23 09:58:00 Nipformerly [facility], [facility] BASIC METABOLIC PANEL (NA, K , CL, CO2, GLUCOSE, BUN, CREATININE, CA) 2023-04-23 09:58:00 Nipper, [facility] CBC WITHOUT DIFF 2023-04-23 09:58:00 Nipper, [facility] PHOSPHORUS 2023-04-23 09:58:00 Nipper, [facility] MAGNESIUM 2023-04-23 09:58:00 Nipper, [facility] HEPATIC FUNCTION PANEL (8007 6) (ALB,T.PRO,BILI T,BU/BC,ALT,AST,ALK PHOS) 2023-04-23 09:58:00 Licha [facility] BASIC METABOLIC PANEL (NA, K , CL, CO2, GLUCOSE, BUN, CREATININE, CA) 2023-04-23 09:58:00 Licha [facility] CBC WITHOUT DIFF 2023-04-23 09:58:00 iLcha [facility] CT ABDOMEN PELVIS W CONTRAST 2023-04-23 01:21:37 Zeusformerly [facility] CT ABDOMEN PELVIS W CONTRAST 2023-04-23 01:21:37 Licha [facility] CT ABDOMEN PELVIS W CONTRAST 2023-04-23 01:21:37 Licha [facility] US ABDOMEN LIMITED 2023-04-22 03:10:58 [facility] US ABDOMEN LIMITED 2023-04-22 03:10:58 [facility] US ABDOMEN LIMITED 2023-04-22 03:10:58 [facility] HB ECG ROUTINE & RHYTHM STRIP 2023-04-22 00:59:17 [facility] HB ECG ROUTINE & RHYTHM STRIP 2023-04-22 00:59:17 [facility] HB ECG ROUTINE & RHYTHM STRIP 2023-04-22 00:59:17 [facility] URINALYSIS 2023-04-22 00:31:00 [facility] URINE DRUG (IMMUNOASSAY) - COMPREHENSIVE DRUG SCREEN W/O REFLEX 2023-04-22 00:31:00 [facility] URINALYSIS 2023-04-22 00:31:00 [facility] URINE DRUG (IMMUNOASSAY) - COMPREHENSIVE DRUG SCREEN W/O REFLEX 2023-04-22 00:31:00 [facility] URINALYSIS 2023-04-22 00:31:00 [facility] URINE DRUG (IMMUNOASSAY) - COMPREHENSIVE DRUG SCREEN W/O REFLEX 2023-04-22 00:31:00 [facility] LIPASE 2023-04-21 23:34:00 [facility] TEST, SERUM 2023-04-21 23:34:00 [facility] COMP. METABOLIC PANEL (26794) 2023-04-21 23:34:00 [facility] CBC WITH DIFF 2023-04-21 23:34:00 [facility] LIPASE 2023-04-21 23:34:00 [facility] TEST, SERUM 2023-04-21 23:34:00 [facility] COMP. METABOLIC PANEL (49563) 2023-04-21 23:34:00 [facility] CBC WITH DIFF 2023-04-21 23:34:00 [facility] LIPASE 2023-04-21 23:34:00 [facility] TEST, SERUM 2023-04-21 23:34:00 [facility] COMP. METABOLIC PANEL (92473) 2023-04-21 23:34:00 [facility] CBC WITH DIFF 2023-04-21 23:34:00 [facility] CONSENT/REFUSAL FOR DIAGNOSI S AND TREATMENT 2023-04-21 21:17:49 Doctor Unassigned, Willow [facility] CONSENT/REFUSAL FOR DIAGNOSI S AND TREATMENT 2023-04-21 21:17:49 Doctor Unassigned, Willow [facility] CONSENT/REFUSAL FOR DIAGNOSI S AND TREATMENT 2023-04-21 21:17:49 Doctor Unassigned, Willow [facility] ASSIGNMENT OF BENEFITS 2023-04-08 23:48:11 Doctor Unassigned, Willow [facility] CT LUMBAR SPINE WO CONTRAST 2023-04-08 22:48:53 Kate Sierra [facility] URINALYSIS 2023-04-08 22:20:00 Kate Sierra [facility] CONSENT/REFUSAL FOR DIAGNOSI S AND TREATMENT 2023-04-08 21:27:01 Doctor Unassigned, Willow [facility] COVID-19 (ID NOW RAPID TESTING) 22:00:00 Kassy Gutierrez [facility] CONSENT/REFUSAL FOR DIAGNOSI S AND TREATMENT 2023-03-14 21:53:37 Doctor Unassigned, Willow [facility] DISCLOSURE AND CONSENT, MEDI HARPREET AND SURGICAL PROCEDURES 2023-03-13 05:01:00 Doctor Unassigned, Willow [facility] LIPASE 2023-03-12 00:30:00 [facility] TROPONIN I 2023-03-12 00:30[facility]. METABOLIC PANEL (44976) 2023-03-12 00:30:00 [facility] CBC WITH DIFF 2023-03-12 00:30:00 [facility] URINALYSIS 2023-03-12 00:30:00 Zeynep Mitchell [facility] ASSIGNMENT OF BENEFITS 2023-03-11 23:33:23 Doctor Unassigned, Willow [facility] CONSENT/REFUSAL FOR DIAGNOSI S AND TREATMENT 2023-03-11 22:27:28 Doctor Unassigned, Willow [facility] TROPONIN I 2023-02-26 19:05:00 Justen Patton [facility] HEPATIC FUNCTION PANEL (8007 6) (ALB,T.PRO,BILI T,BU/BC,ALT,AST,ALK PHOS) 2023-02-26 19:05:00 Erika Pelaez [facility] US ABDOMEN COMPLETE 2023-02-26 17:32:44 Roman Mena [facility] TRANSTHORACIC ECHO (TTE) COMPLETE 02-26 13:45:00 Justen Patton [facility] TROPONIN I 2023-02-26 09:16:00 Justen Patton [facility] TROPONIN I 2023-02-26 01:13:00 Justen Patton [facility] URINALYSIS 2023-02-25 22:26:00 Bairon Meyers [facility] CT STROKE ANGIOGRAM HEAD 2023-02-25 20:59:00 Bairon Meyers [facility] CT STROKE ANGIOGRAM NECK 2023-02-25 20:59:00 Bairon Meyers [facility] CT STROKE HEAD WO CONTRAST 2023-02-25 20:46:55 Bairon Meyers [facility] TROPONIN I 2023-02-25 20:31:00 Bairon Meyers [facility] THYROID STIMULATING HORMONE 2023-02-25 20:31:00 Justen Patton [facility] BASIC METABOLIC PANEL (NA, K , CL, CO2, GLUCOSE, BUN, CREATININE, CA) 2023-02-25 20:31:00 Bairon Meyers [facility] LIPID PANEL (26824)(TOTAL CHOLESTEROL, TRIGLYCERIDES, HDL) 2023-02-25 20:31:00 Justen Patton [facility] CBC WITHOUT DIFF 2023-02-25 20:31:00 Bairon Meyers [facility] PROTHROMBIN TIME / INR 2023-02-25 20:31:00 Bairon Meyers [facility] ACTIVATED PARTIAL THRMPLAS CARLO 1 20:31:00 Bairon Meyers [facility] CT ABDOMEN PELVIS W CONTRAST 2023-02-03 01:48:38 Damion Hamlin [facility] POCT TEST 2023-02-03 00:43:00 Damion Hamlin [facility] URINALYSIS 2023-02-03 00:40:00 Damion Hamlin [facility] LIPASE 2023-02-03 00:39:00 Damion Hamlin [facility] COMP. METABOLIC PANEL (23426) 2023-02-03 00:39:00 Damion Hamlin [facility] CBC WITH DIFF 2023-02-03 00:39:00 Damion Hamlin [facility] NOTICE OF PRIVACY PRACTICES 2023-02-03 00:17:34 Doctor Unassigned, Willow [facility] CONSENT/REFUSAL FOR DIAGNOSI S AND TREATMENT 2023-02-03 00:14:58 Doctor Unassigned, Willow [facility] COVID-19 (ID NOW RAPID TESTING) 18:42:00 Kassy Gutierrez [facility] CONSENT/REFUSAL FOR DIAGNOSI S AND TREATMENT 2022-05-21 18:23:51 Doctor Unassigned, Willow [facility] COVID-19 (MOLECULAR TESTING NUCLEIC ACID AMPLIFICATION) 2022-04-23 19:40:00 Rasta Anne [facility] LAB ONLY COVID INTERPRETATION 2022-04-23 19:40:00 Rasta Anne [facility] POCT MOLECULAR FLU 2022-04-23 19:35:00 Panda Flanagan [facility] ASSIGNMENT OF BENEFITS 2022-03-13 21:28:15 Doctor Unassigned, Willow [facility] DERMATOPATHOLOGY TISSUE EXAM 2021-05-25 00:00:00 Javi Mcpherson [facility] Encounters Start Date/Time End Date/Time Encounter Type Admission Type Attending [facility] Care Facility Care Department Encounter ID Source 2023-05-01 10:38:09 Outpatient EKTA RANGEL [facility] [id number] [facility] 2021-05-29 09:09:24 Emergency [facility] [id number] [facility] 2021-05-28 09:54:12 Outpatient P [facility] FAUSTO [id number] [facility] 2021-05-28 09:46:44 Emergency [facility] [id number] [facility] 2021-05-27 12:42:05 Emergency [facility] [id number] [facility] 2021-05-26 21:03:09 Emergency [facility] [id number] [facility] 2024-04-20 13:30:00 2024-04-20 13:30:00 Outpatient LIANET WOODS CASSIE [facility] [id number] [facility] 2024-04-14 12:00:00 2024-04-14 12:00:00 Outpatient SABINO GUERRERO OGECHUKWU [facility] [id number] [facility] 2024-04-06 14:00:00 2024-04-06 14:00:00 Outpatient R ROSA LEMUS [facility] [id number] [facility] 2024-04-02 14:50:30 2024-04-02 14:50:30 Outpatient R SABINO SIMMONS OGECHUKWU [facility] [id number] [facility] 2024-02-19 00:00:00 2024-03-27 18:26:23 Patient Secure Msg Doctor Unassigned, Willow Doctor Unassigned, Willow [facility] 1..840.114 350.1.13.10 4.2.7.2.[id number] [facility] 2024-02-19 00:00:00 2024-03-27 18:25:40 Patient Secure Msg Doctor Unassigned, Willow Doctor Unassigned, Willow [facility] 1..840.114 350.1.13.10 4.2.7.2.[id number] [facility] 2024-03-24 14:45:00 2024-03-24 14:45:00 Outpatient R LEA BARRETO [facility] [id number] [facility] 2024-03-23 00:00:00 2024-03-23 14:05:24 Telephone Violet Zuluaga [facility] 1..840.114 350.1.13.10 4.2.7.2.[id number] [facility] 2024-03-22 09:15:00 2024-03-22 09:58:36 Outpatient R VIOLET ZULUAGA [facility] [id number] [facility] 2024-03-22 09:15:00 2024-03-22 09:58:36 Office Visit Violet Zuluaga [facility] 1.84.114 350.1.13.10 4.2.7.2.[id number] [facility] 2024-03-17 15:15:00 2024-03-17 15:15:00 Outpatient R LESLYE COPE CRAIG [facility] [id number] [facility] 2024-03-15 08:15:00 2024-03-15 08:15:00 Outpatient R VIOLET ZULUAGA [facility] [id number] [facility] 2024-03-08 13:00:00 2024-03-08 13:00:00 Outpatient R SABINO SIMMONS OGECHUKWU [facility] [id number] [facility] 2024-02-26 00:00:00 2024-03-08 08:12:02 Nurse Triage Tala Elise Teresa D [facility] 1.840.114 350.1.13.10 4.2.7.2.[id number] [facility] 2024-02-03 00:00:00 2024-03-06 18:20:22 Patient Secure Msg Doctor Unassigned, Willow Doctor Unassigned, Willow [facility] 1.840.114 350.1.13.10 4.2.7.2.[id number] [facility] 2024-03-03 15:15:00 2024-03-03 15:15:00 Outpatient R LESLYE COPE CRAIG [facility] [id number] [facility] 2024-02-18 00:00:00 2024-02-20 17:05:35 Telephone [facility] 1.840.114 350.1.13.10 4.2.7.2.[id number] [facility] 2024-02-19 00:00:00 2024-02-19 13:43:37 Telephone Sabino Simmons [facility] 1.2.840.114 350.1.13.10 4.2.7.2.[id number] [facility] 2024-02-18 13:00:00 2024-02-18 14:25:29 Outpatient R SABINO SIMMONS OGECHUKWU [facility] [id number] [facility] 2024-02-18 13:00:00 2024-02-18 14:25:29 Office Visit Sabino Simmons [facility] 1.2.840.114 350.1.13.10 4.2.7.2.[id number] [facility] 2024-02-03 11:30:00 2024-02-03 11:30:00 Outpatient R SABINO SIMMONS OGECHUKWU [facility] [id number] [facility] 2024-01-28 00:00:00 2024-01-31 16:00:32 Telephone Sabino Simmons [facility] 1.2.840.114 350.1.13.10 4.2.7.2.[id number] [facility] 2024-01-27 16:16:00 2024-01-27 21:50:00 Emergency X TAYLOR MALCOLM [facility] [id number] [facility] 2024-01-27 16:16:00 2024-01-27 21:50:00 Emergency Taylor [facility] 1..840.114 350.1.13.10 4.2.7.2.[id number] [facility] 2024-01-26 00:00:00 2024-01-26 09:24:31 Telephone Sabino Simmons [facility] 1..840.114 350.1.13.10 4.2.7.2.[id number] [facility] 2024-01-09 13:30:00 2024-01-09 13:30:00 Outpatient R SABINO SIMMONS OGECHUKWU [facility] [id number] [facility] 2024-01-08 00:00:00 2024-01-08 16:07:59 Case Management Nissa Velasco [facility] 1..840.114 350.1.13.10 4.2.7.2.[id number] [facility] 2024-01-08 15:15:00 2024-01-08 15:15:00 Outpatient R [facility] [id number] [facility] 2023-12-30 13:45:00 2023-12-30 13:45:00 Outpatient R LESLYE COPE CRAIG [facility] [id number] [facility] 2023-12-24 14:30:00 2023-12-24 14:30:00 Outpatient R SABINO SIMMONS OGECHUKWU [facility] [id number] [facility] 2023-12-16 14:30:00 2023-12-16 15:42:50 Outpatient R LESLYE COPE CRAIG [facility] [id number] [facility] 2023-12-16 14:30:00 2023-12-16 15:42:50 Ancillary Visit Gabrielle Medellin Craig L [facility] 1..840.114 350.1.13.10 4.2.7.2.[id number] [facility] 2023-12-01 00:00:00 2023-12-01 13:51:45 Patient Outreach Romina Baker [facility] 1.2.840.114 350.1.13.10 4.2.7.2.[id number] [facility] 2023-11-28 00:00:00 2023-11-28 00:00:00 Telephone Sabino Simmons [facility] 1.2.840.114 350.1.13.10 4.2.7.2.[id number] 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 2023-11-26 13:00:00 2023-11-26 14:10:33 Outpatient R SABINO SIMMONS OGECHUKWU [facility] [id number] [facility] 2023-11-26 13:00:00 2023-11-26 14:10:33 Office Visit Sabino Simmons [facility] 1.2.840.114 350.1.13.10 4.2.7.2.[id number] [facility] 2023-11-25 13:45:00 2023-11-25 13:45:00 Outpatient R [facility] [id number] [facility] 2023-11-21 13:00:00 2023-11-21 13:00:00 Outpatient R SABINO SIMMONS OGECHUKWU [facility] [id number] [facility] 2023-11-17 14:00:00 2023-11-17 14:00:00 Outpatient R SUSAN SIM[place], SUSANI[place]iaWood [facility] [id number] [facility] 2023-11-14 14:00:00 2023-11-14 14:00:00 Outpatient R IRIS SUSANJACKELINE SIMMONS SUSANJACKELINE [facility] [id number] [facility] 2023-11-07 13:30:00 2023-11-07 13:30:00 Outpatient REY GUZMANSAY [facility] [id number] [facility] 2023-11-03 13:00:00 2023-11-03 13:00:00 Outpatient R [facility] [id number] [facility] 2023-11-03 09:00:00 2023-11-03 09:00:00 Outpatient JAVI LAGUERRE [facility] [id number] [facility] 2023-10-20 00:00:00 2023-10-20 00:00:00 Patient Secure Msg Doctor Unassigned, Willow [facility] 1..840.114 350.1.13.10 4.2.7.2.[id number] [facility] 2023-10-17 13:03:23 2023-10-17 23:59:00 Outpatient MICHAEL GUZMAN [facility] [id number] 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 2023-10-10 14:50:00 2023-10-10 15:47:49 Outpatient MICHAEL GUZMAN [facility] [id number] [facility] 2023-10-10 14:50:00 2023-10-10 15:47:49 Office Visit Mayela Nabila Betancur Michael Rainer [facility] 1.2.840.114 350.1.13.10 4.2.7.2.[id number] [facility] 2023-10-03 15:08:00 2023-10-03 18:40:00 Emergency X TAYLOR BYNUM [facility] ERT [id number] [facility] 2023-10-03 15:08:00 2023-10-03 18:40:00 Emergency Alice Pena Whitney [facility] 1.2.840.114 350.1.13.10 4.2.7.2.[id number] [facility] 2023-09-29 00:00:00 2023-09-29 00:00:[address] [facility] 1.2.840.114 350.1.13.10 4.2.7.2.[id number] [facility] 2023-07-03 11:00:00 2023-07-03 11:00:00 Outpatient R [facility] [id number] [facility] 2023-05-23 09:15:00 2023-05-23 09:15:00 Outpatient R ANTOINETTE MCCULLOUGH [facility] [id number] [facility] 2023-05-21 16:15:00 2023-05-21 16:15:00 Outpatient R ANTOINETTE MCCULLOUGH [facility] [id number] [facility] 2023-05-06 18:19:00 2023-05-06 22:17:00 Emergency X ALICE PENA [facility] ERT [id number] [facility] 2023-05-06 18:19:00 2023-05-06 22:17:00 Emergency Alice Pena [facility] 1.2.840.114 350.1.13.10 4.2.7.2.[id number] [facility] 2023-05-01 00:00:00 2023-05-01 00:00:00 Transition of Care Lolita Willett 1.2.840.114 350.1.13.10 4.2.7.2.[id number] [facility] 2023-04-21 16:49:00 2023-04-30 16:15:00 Outpatient X SADIA [facility] ART[facility] [id number] [facility] 2023-04-21 16:49:00 2023-04-30 16:15:00 Hospital Encounter Austin Salomon, Erika Bergman [facility] 1.2.840.114 350.1.13.10 4.2.7.2.[id number] [facility] 2023-04-30 00:00:00 2023-04-30 00:00:00 Telephone [facility] [facility] 1.2.840.114 350.1.13.10 4.2.7.2.[id number] [facility] 2023-04-29 06:50:00 2023-04-29 09:02:00 Surgery [facility] 1.2.840.114 350.1.13.10 4.2.7.2.[id number] [facility] 2023-04-25 13:26:00 2023-04-25 14:05:00 Surgery Marcos Rodriguez [facility] 1.2.840.114 350.1.13.10 4.2.7.2.[id number] [facility] 2023-04-24 15:30:00 2023-04-24 15:30:00 Outpatient Tasha RODRIGUEZJANI [facility] [id number] [facility] 2023-04-16 10:30:00 2023-04-16 10:30:00 Outpatient Tasha JENNIFERJANI [facility] [id number] [facility] 2023-04-09 00:00:00 2023-04-09 00:00:00 Patient Secure Msg Doctor Unassigned, Willow [facility] 1..840.114 350.1.13.10 4.2.7.2.[id number] [facility] 2023-04-08 16:34:00 2023-04-08 19:33:00 Emergency X KATE SIERRA [facility] ERT [id number] [facility] 2023-04-08 16:34:00 2023-04-08 19:33:00 Emergency Kate Sierra [facility] 1..840.114 350.1.13.10 4.2.7.2.[id number] [facility] 2023-04-07 15:00:00 2023-04-07 15:00:00 Outpatient FARIHA AGUIAR HOWARD [facility] [id number] [facility] 2023-03-20 00:00:00 2023-03-20 00:00:00 Patient Secure Msg Doctor Unassigned, Willow [facility] 1..840.114 350.1.13.10 4.2.7.2.[id number] [facility] 2023-03-14 16:57:00 2023-03-14 17:50:00 Emergency X KASSY GUTIERREZ [facility] ERT [id number] [facility] 2023-03-14 16:57:00 2023-03-14 17:50:00 Emergency Kassy Gutierrez [facility] 1.2840.114 350.1.13.10 4.2.7.2.[id number] [facility] 2023-03-13 11:00:00 2023-03-13 11:30:00 [facility] 1.0.114 350.1.13.10 4.2.7.2.[id number] [facility] 2023-03-13 11:00:00 2023-03-13 11:00:00 Outpatient Tasha DELGADO BOAZ [facility] [id number] [facility] 2023-03-13 00:00:00 2023-03-13 00:00:[address] [facility] 1.0.114 350.1.13.10 4.2.7.2.[id number] [facility] 2023-03-13 00:00:00 2023-03-13 00:00:00 Orders Only Doctor Unassigned, Willow [facility] 1.2840.114 350.1.13.10 4.2.7.2.[id number] [facility] 2023-03-11 17:46:00 2023-03-11 20:59:00 Emergency X NEHA MITCHELLANNE [facility] ERT [id number] [facility] 2023-03-11 17:46:00 2023-03-11 20:59:00 Emergency Zeynep Mitchell [facility] 1.20.114 350.1.13.10 4.2.7.2.[id number] [facility] 2023-02-25 14:43:00 2023-02-26 19:25:00 Outpatient X JUSTEN PATTON [facility] [place] [id number] [facility] 2023-02-25 14:43:00 2023-02-26 19:25:00 Emergency Bairon Meyers David [facility] 1.2.840.114 350.1.13.10 4.2.7.2.[id number] [facility] 2023-02-02 19:28:00 2023-02-02 23:34:00 Emergency X DAMION HAMLIN [facility] ERT [id number] [facility] 2023-02-02 19:28:00 2023-02-02 23:34:00 Emergency Damion Hamlin [facility] 1.2840.114 350.1.13.10 4.2.7.2.[id number] [facility] 2022-08-27 11:00:00 2022-08-27 11:00:00 Outpatient JAVI LAGUERRE [facility] [id number] [facility] 2022-06-18 13:00:00 2022-06-18 13:00:00 Outpatient ZEV CH [facility] [id number] [facility] 2022-05-21 13:38:00 2022-05-21 14:10:00 Emergency KASSY GARCIA [facility] ERT [id number] [facility] 2022-05-21 13:38:00 2022-05-21 14:10:00 Emergency Kassy Gutierrez [facility] 1.2.840.114 350.1.13.10 4.2.7.2.[id number] [facility] 2022-04-24 00:00:00 2022-04-24 00:00:00 Patient Secure MsRasta Soriano [facility] 1.2.840.114 350.1.13.10 4.2.7.2.[id number] [facility] 2022-04-23 15:30:00 2022-04-23 16:00:00 Office Visit Rasta Anne Alexander [facility] 1.2840.114 350.1.13.10 4.2.7.2.[id number] [facility] 2022-04-23 15:30:00 2022-04-23 15:30:00 Outpatient PANDA ECHEVARRIA [facility] [id number] [facility] 2022-04-01 00:00:00 2022-04-01 00:00:00 Telephone Javi Mcpherson [facility] 1.840.114 350.1.13.10 4.2.7.2.[id number] [facility] 2022-03-13 16:15:00 2022-03-13 16:30:00 Laboratory Only Only, Ang Db Test Kevin [facility]?AICHA [facility] 1.840.114 350.1.13.10 4.2.7.2.[id number] [facility] 2022-03-13 16:15:00 2022-03-13 16:15:00 Outpatient Tasha [facility]OWN [facility] [id number] [facility] 2022-03-13 00:00:00 2022-03-13 00:00:00 Orders Only Doctor Unassigned, Willow [facility] 1.840.114 350.1.13.10 4.2.7.2.[id number] [facility] 2022-03-04 10:15:00 2022-03-04 10:15:00 Outpatient JAVI LGAUERRE [facility] [id number] [facility] 2022-01-08 10:30:00 2022-01-08 10:30:00 Outpatient JAVI LAGUERRE [facility] [id number] [facility] 2021-12-05 19:26:00 2021-12-05 20:13:00 Emergency X SAYDA ZAFAR [facility] ERT [id number] [facility] 2021-12-05 19:26:00 2021-12-05 20:13:00 Emergency Sayda Zafar R [facility] 1.840.114 350.1.13.10 4.2.7.2.[id number] [facility] 2021-12-05 19:26:00 2021-12-05 20:13:00 Emergency X SAYDA ZAFAR [facility] ERT [id number] [facility] 2021-09-25 15:10:00 2021-09-25 15:10:00 Outpatient R UNKNOWN, ATTENDING [facility] [id number] [facility] 2021-09-25 15:10:00 2021-09-25 15:10:00 Outpatient R UNKNOWN, ATTENDING [facility] [id number] [facility] 2021-08-22 00:00:00 2021-08-22 00:00:00 Patient Secure Msg Randy Chauhan [facility] 1..840.114 350.1.13.10 4.2.7.2.[id number] [facility] 2021-08-22 00:00:00 2021-08-22 00:00:00 Patient Secure Msg Doctor Unassigned, Willow [facility] 1..840.114 350.1.13.10 4.2.7.2.[id number] [facility] 2021-08-21 15:13:16 2021-08-21 23:59:00 Outpatient R BRANDON RIVERA [facility] [id number] [facility] 2021-08-21 15:13:16 2021-08-21 23:59:00 Hospital Encounter Brandon Rivera [facility]AV[facility] 1.2840.114 350.1.13.10 4.2.7.2.[id number] [facility] 2021-08-21 15:13:16 2021-08-21 23:59:00 Outpatient R BRANDON RIVERA [facility] [id number] 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 2021-08-21 14:20:00 2021-08-21 15:05:01 Outpatient Tasha VAZQUEZ, ATTENDING [facility] [id number] [facility] 2021-08-21 14:20:00 2021-08-21 15:05:01 Office Visit Randy Chauhan, Attending Brandon Rivera [facility] [place] 1.2.840.114 350.1.13.10 4.2.7.2.[id number] [facility] 2021-08-21 14:20:00 2021-08-21 15:05:01 Outpatient BRANDON CAREY [facility] [id number] [facility] 2021-08-15 00:00:00 2021-08-15 00:00:[address] [facility] 1.84.114 350.1.13.10 4.2.7.2.[id number] [facility] 2021-08-06 00:00:00 2021-08-06 00:00:00 [facility] 1.840.114 350.1.13.10 4.2.7.2.[id number] [facility] 2021-07-30 10:30:00 2021-07-30 10:30:00 Outpatient JAVI LAGUERRE [facility] [id number] [facility] 2021-07-26 00:00:00 2021-07-26 00:00:00 Randy Sotelo [facility] MAR[facility] 1.2.840.114 350.1.13.10 4.2.7.2.[id number] [facility] 2021-07-25 10:40:00 2021-07-25 10:40:00 Outpatient SCARLET VELASQUEZ [facility] [id number] [facility] 2021-06-26 16:00:00 2021-06-26 16:00:00 Outpatient R [facility] [id number] [facility] 2021-06-26 16:00:00 2021-06-26 16:00:00 Outpatient R [facility] [id number] [facility] 2021-06-26 14:20:00 2021-06-26 14:20:00 Outpatient R ELENA VAZQUEZ [facility] [id number] [facility] 2021-06-19 10:00:00 2021-06-19 10:00:00 Outpatient SELINA CASTANO [facility] [id number] [facility] 2021-06-19 10:00:00 2021-06-19 10:00:00 Outpatient SELINA CASTANO [facility] [id number] [facility] 2021-06-12 14:15:00 2021-06-12 14:15:00 Outpatient CASSIUS GRADY [facility] [id number] [facility] 2021-06-11 11:00:00 2021-06-11 11:00:00 Outpatient BRANDON CAREY [facility] [id number] [facility] 2021-06-11 00:00:00 2021-06-11 00:00:00 Outpatient BRANDON CAREY [facility] [id number] [facility] 2021-06-11 00:00:00 2021-06-11 00:00:00 Outpatient BRANDON CAREY [facility] [id number] [facility] 2021-06-11 00:00:00 2021-06-11 00:00:00 Outpatient Tasha RIVERA BRANDON [facility] [id number] [facility] 2021-06-08 09:30:00 2021-06-08 14:17:29 Outpatient CAROLYN MONSALVE [facility] [id number] [facility] 2021-06-08 09:41:59 2021-06-08 09:56:59 Nurse Visit Visit, [facility] Dermatology Nurse Carolyn Herrera [facility] .840.114 350.1.13.10 4.2.7.2.[id number] [facility] 2021-06-08 09:30:00 2021-06-08 09:30:00 Outpatient CAROLYN MONSALVE [facility] [id number] [facility] 2021-06-08 09:30:00 2021-06-08 09:30:00 Outpatient CAROLYN MONSALVE [facility] [id number] [facility] 2021-06-08 00:00:00 2021-06-08 00:00:[address] [facility] .840.114 350.1.13.10 4.2.7.2.[id number] [facility] 2021-06-06 10:44:36 2021-06-06 11:41:03 [facility] 1.840.114 350.1.13.10 4.2.7.2.[id number] [facility] 2021-06-06 10:40:00 2021-06-06 11:41:03 Outpatient ELVI OSMAN [facility] [id number] [facility] 2021-06-06 00:00:00 2021-06-06 00:00:00 Orders Only Doctor Unassigned, Willow [facility] 1.2.840.114 350.1.13.10 4.2.7.2.[id number] [facility] 2021-05-31 00:00:00 2021-05-31 00:00:00 Patient Secure Msg Doctor Unassigned, Willow [facility] 1.2.840.114 350.1.13.10 4.2.7.2.[id number] [facility] 2021-05-28 00:00:00 2021-05-28 00:00:00 Patient Secure Msg Randy Chauhan [facility] PRIMARY CARE PAVILLION 1.2.840.114 350.1.13.10 4.2.7.2.[id number] [facility] 2021-05-25 14:56:53 2021-05-25 23:59:00 Hospital Encounter Radiology [facility]ARE PAVILLION 1.2.840.114 350.1.13.10 4.2.7.2.[id number] 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 2021-05-25 14:56:53 2021-05-25 14:56:53 Outpatient R RADIOLOGY [facility] [id number] [facility] 2021-05-25 14:10:00 2021-05-25 14:51:51 Outpatient R UNKNOWN, ATTENDING [facility] [id number] [facility] 2021-05-25 14:10:00 2021-05-25 14:51:51 Outpatient Tasha BRANDON RIVERA [facility] [id number] [facility] 2021-05-25 13:34:56 2021-05-25 14:51:51 Office Visit Randy Chauhan Unknown, Attending [facility] PAVILL[facility] 1.2.840.114 350.1.13.10 4.2.7.2.[id number] [facility] 2021-05-25 13:34:56 2021-05-25 14:51:51 Office Visit DavidRandy abad Dariel, Attending [facility]AVILLION 1.2840.114 350.1.13.10 4.2.7.2.[id number] [facility] 2021-05-25 09:00:00 2021-05-25 11:35:22 Outpatient R JAVI MCPHERSON [facility] [id number] [facility] 2021-05-25 09:00:00 2021-05-25 11:35:22 Outpatient R JAVI MCPHERSON [facility] [id number] [facility] 2021-05-25 09:00:00 2021-05-25 11:35:22 Office Visit Javi Mcpherson [facility] 1.2840.114 350.1.13.10 4.2.7.2.[id number] [facility] 2021-05-25 08:38:11 2021-05-25 11:35:22 Office Visit Javi Mcpherson [facility] 1.2840.114 350.1.13.10 4.2.7.2.[id number] [facility] 2021-05-25 08:38:11 2021-05-25 11:35:22 Office Visit Javi Mcpherson [facility] 1.2840.114 350.1.13.10 4.2.7.2.[id number] [facility] 2021-05-25 09:00:00 2021-05-25 09:00:00 Outpatient R JAVI MCPHERSON [facility] [id number] [facility] 2021-05-23 10:40:00 2021-05-23 10:40:00 Outpatient R UNKNOWN, ATTENDING [facility] [id number] [facility] 2021-05-23 10:40:00 2021-05-23 10:40:00 Outpatient R UNKNOWN, ATTENDING [facility] [id number] [facility] 2021-05-19 17:42:00 2021-05-19 20:16:00 Emergency Lauri Curry S [facility] 1..114 350.1.13.10 4.2.7.2.[id number] [facility] 2021-05-19 17:42:00 2021-05-19 20:16:00 Emergency X LAURI CURRY [facility] ERT [id number] [facility] 2021-05-18 13:10:00 2021-05-18 13:10:00 Outpatient R UNKNOWN, ATTENDING [facility] [id number] [facility] 2021-05-16 13:45:00 2021-05-16 13:45:00 Outpatient R SIENNA RUFF [facility] [id number] [facility] 2021-04-23 14:52:31 2021-04-23 15:49:11 Routine Visit Selina Buckley [facility] 1..114 350.1.13.10 4.2.7.2.[id number] [facility] 2021-04-23 11:19:34 2021-04-23 15:47:11 Office Visit Javi Mcpherson [facility] 1.0.114 350.1.13.10 4.2.7.2.[id number] [facility] 2021-04-23 11:45:00 2021-04-23 11:45:00 Outpatient R JAVI MCPHERSON [facility] [id number] [facility] 2021-04-06 14:35:35 2021-04-06 15:03:54 Nurse Visit Visit[facility] 1.2.840.114 350.1.13.10 4.2.7.2.[id number] [facility] 2021-04-06 14:30:00 2021-04-06 15:03:54 Outpatient R MARCIO [facility] [id number] [facility] 2021-04-06 14:30:00 2021-04-06 14:30:00 Outpatient R [facility] [id number] [facility] 2021-03-27 15:30:00 2021-03-30 14:00:00 Inpatient P MAGED [facility] [id number] [facility] 2021-03-27 15:30:00 2021-03-30 14:00:00 Hospital Encounter Maged Abram [facility] 1.2.840.114 350.1.13.10 4.2.7.2.[id number] [facility] 2021-03-27 19:00:00 2021-03-27 21:05:00 Surgery Herminio Isaac [facility] 1.2.840.114 350.1.13.10 4.2.7.2.[id number] [facility] 2021-03-27 15:30:00 2021-03-27 15:30:00 Outpatient P ABRAM LYNNE [facility] [id number] [facility] 2021-03-27 14:09:50 2021-03-27 15:22:03 Routine Visit Marcio [facility] 1.2.840.114 350.1.13.10 4.2.7.2.[id number] [facility] 2021-03-27 14:15:00 2021-03-27 14:15:00 Outpatient R MARCIOSELINA [facility] [id number] [facility] 2021-03-27 00:00:00 2021-03-27 00:00:00 Orders Only Doctor Unassigned, Willow [facility] 1.2840.114 350.1.13.10 4.2.7.2.[id number] [facility] 2021-03-21 14:30:00 2021-03-21 14:30:00 Outpatient R MARCIO [facility] [place] [id number] [facility] 2021-03-16 00:00:00 2021-03-16 00:00:00 Patient Secure Msg [facility] 1.2840.114 350.1.13.10 4.2.7.2.[id number] [facility] 2021-03-15 00:00:00 2021-03-15 00:00:[address] [facility] 1.2840.114 350.1.13.10 4.2.7.2.[id number] [facility] 2021-03-12 15:12:14 2021-03-12 16:00:23 Routine Visit [facility] 1.2840.114 350.1.13.10 4.2.7.2.[id number] [facility] 2021-03-12 15:45:00 2021-03-12 15:45:00 Outpatient R MARCIO [facility] [place] [id number] [facility] 2021-03-03 00:00:00 2021-03-03 00:00:00 Patient Secure Msg Doctor Unassigned, Willow [facility] 1.840.114 350.1.13.10 4.2.7.2.[id number] [facility] 2021-03-01 00:00:00 2021-03-01 00:00:00 Telephone Fidel [facility] 1.840.114 350.1.13.10 4.2.7.2.[id number] [facility] 2021-02-28 00:00:00 2021-02-28 00:00:00 Nurse Triage [facility] 1.840.114 350.1.13.10 4.2.7.2.[id number] [facility] 2021-02-27 00:00:00 2021-02-27 00:00[facility].114 350.1.13.10 4.2.7.2.[id number] [facility] 2021-02-27 00:00:00 2021-02-27 00:00:00 Refill [facility] 1.840.114 350.1.13.10 4.2.7.2.[id number] [facility] 2021-02-26 15:30:00 2021-02-26 15:49:52 Outpatient R SELNIA BUCKLEY [facility] [id number] [facility] 2021-02-26 15:22:26 2021-02-26 15:49:52 Routine Visit Selina Buckley [facility] 1.840.114 350.1.13.10 4.2.7.2.[id number] [facility] 2021-02-26 15:30:00 2021-02-26 15:30:00 Outpatient R SELINA BUCKLEY [facility] [id number] [facility] 2021-02-26 15:30:00 2021-02-26 15:30:00 Outpatient R MARCIO SELINA [facility] [id number] [facility] 2021-02-20 14:00:00 2021-02-20 14:00:00 Outpatient R JOSEOBDULIA CRISTINA [facility] [id number] [facility] 2021-02-20 14:00:00 2021-02-20 14:00:00 Outpatient R FIDEL CRISTINA [facility] [id number] [facility] 2021-02-20 00:00:00 2021-02-20 00:00:[address] [facility] 1..840.114 350.1.13.10 4.2.7.2.[id number] [facility] 2021-02-15 14:00:00 2021-02-15 14:00:00 Outpatient DASH SPRINGER [facility] [id number] [facility] 2021-02-15 13:29:53 2021-02-15 13:44:53 Office Visit Dash Malcolm [facility]840.114 350.1.13.10 4.2.7.2.[id number] [facility] 2021-02-14 13:51:00 2021-02-14 21:15:00 Hospital Encounter Ondina Palacio [facility] 1..840.114 350.1.13.10 4.2.7.2.[id number] [facility] 2021-02-14 13:51:00 2021-02-14 21:15:00 Outpatient ONDINA WALLER [facility] [id number] [facility] 2021-02-14 13:51:00 2021-02-14 21:15:00 Outpatient Rodrigo ONDINA PALACIO [facility] [id number] [facility] 2021-02-14 00:00:00 2021-02-14 00:00:00 Orders Only Doctor Unassigned, Willow [facility] 1.840.114 350.1.13.10 4.2.7.2.[id number] [facility] 2021-02-07 00:00:00 2021-02-07 00:00:00 Refill Cristina Parra [facility] RN RESOURCE NURSE [facility] 1.840.114 350.1.13.10 4.2.7.2.[id number] 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 2021-02-06 08:00:00 2021-02-06 08:00:00 Outpatient MILI COLLAZO [facility] [id number] [facility] 2021-02-06 08:00:00 2021-02-06 07:58:12 Outpatient MILI COLLAZO [facility] [id number] [facility] 2021-02-05 13:00:54 2021-02-05 15:47:28 Routine Visit Cristina Parra [facility] 1.840.114 350.1.13.10 4.2.7.2.[id number] [facility] 2021-02-05 13:00:00 2021-02-05 13:00:00 Outpatient R CRISTINA PARRA [facility] [id number] [facility] 2021-02-02 00:00:00 2021-02-02 00:00:00 Telephone Fidel [facility] 1.840.114 350.1.13.10 4.2.7.2.[id number] [facility] 2021-01-31 11:00:00 2021-01-31 11:00:00 [facility] [id number] [facility] 2021-01-25 00:00:00 2021-01-25 00:00:00 Case Management Fidel [facility] RN RESOURCE NURSE [facility] 1..840.114 350.1.13.10 4.2.7.2.[id number] 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 2021-01-24 08:30:00 2021-01-24 08:30:00 Outpatient MILI COLLAZO [facility] [id number] [facility] 2021-01-19 14:00:00 2021-01-19 14:00:00 Outpatient R FIDEL [facility] [id number] [facility] 2021-01-17 15:24:33 2021-01-17 16:07:47 Routine Visit Fidel [facility] ..840.114 350.1.13.10 4.2.7.2.[id number] [facility] 2021-01-17 15:00:00 2021-01-17 15:00:00 Outpatient R CRISTINA PARRA [facility] [id number] [facility] 2021-01-17 00:00:00 2021-01-17 00:00:00 Orders Only Doctor Unassigned, [place] [facility] 1.114 350.1.13.10 4.2.7.2.[id number] [facility] 2020-12-29 14:22:20 2020-12-29 14:54:37 Routine Visit Franny Bustillo [facility] 1.114 350.1.13.10 4.2.7.2.[id number] [facility] 2020-12-29 13:45:00 2020-12-29 13:45:00 Outpatient SELINA CASTANO [facility] [id number] 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 2020-12-11 14:45:00 2020-12-11 14:45:00 Outpatient P [facility] [id number] [facility] 2020-12-04 00:00:00 2020-12-04 00:00:00 Telephone Fidel [facility] 1.114 350.1.13.10 4.2.7.2.[id number] [facility] 2020-12-03 00:00:00 2020-12-03 00:00:00 Refill Fidel [facility] 1..114 350.1.13.10 4.2.7.2.[id number] [facility] 2020-12-01 15:38:20 2020-12-01 16:07:09 Routine Visit Fidel Cristina Marcio [facility] 1.2840.114 350.1.13.10 4.2.7.2.[id number] [facility] 2020-12-01 15:45:00 2020-12-01 15:45:00 Outpatient R SELINA BUCKLEY [facility] [id number] [facility] 2020-11-14 00:00:00 2020-11-14 00:00:00 Telephone Darline Cheng [facility] [facility] [place] 1.0.114 350.1.13.10 4.2.7.2.[id number] 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 2020-11-13 10:00:00 2020-11-13 10:00:00 Outpatient P [facility] [id number] [facility] 2020-11-08 00:00:00 2020-11-08 00:00:00 Patient Secure Msg Javi Mcpherson P [facility] 1..114 350.1.13.10 4.2.7.2.[id number] [facility] 2020-11-07 18:56:00 2020-11-07 21:35:00 Emergency Damion Hamlin [facility] 1.840.114 350.1.13.10 4.2.7.2.[id number] 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 2020-11-03 15:38:43 2020-11-03 16:07:59 Routine Visit Fidel [facility] 1..114 350.1.13.10 4.2.7.2.[id number] [facility] 2020-11-03 15:45:00 2020-11-03 15:45:00 Outpatient R MARLYN PARRARIELLE [facility] [id number] [facility] 2020-10-30 08:15:00 2020-10-30 08:15:00 Outpatient R MARLYN PARRARIELLE [facility] [id number] [facility] 2020-10-18 15:48:54 2020-10-18 16:03:54 Telemedici ne Visit Darline Cheng Joseph W [facility] RN RESOURCE NURSE [facility] MATERNAL & CHILD HEALTH [facility] 1.114 350.1.13.10 4.2.7.2.[id number] [facility] 2020-10-18 09:00:00 2020-10-18 09:00:00 Outpatient JARED MCMAHAN [facility] [id number] [facility] 2020-10-18 00:00:00 2020-10-18 00:00:00 Orders Only Doctor Unassigned, Willow [facility] 1..114 350.1.13.10 4.2.7.2.[id number] [facility] 2020-10-17 10:36:54 2020-10-17 11:50:40 Office Visit Javi Mcpherson [facility] 1.114 350.1.13.10 4.2.7.2.[id number] [facility] 2020-10-17 10:00:00 2020-10-17 10:00:00 Outpatient JAVI LAGUERRE [facility] [id number] [facility] 2020-10-12 00:00:00 2020-10-12 00:00:00 Patient Outreach Maximus Villavicencio [facility] 1..114 350.1.13.10 4.2.7.2.[id number] [facility] 2020-10-02 10:34:30 2020-10-02 11:14:04 Routine Visit Marlyn Parrarielle [facility] 1..114 350.1.13.10 4.2.7.2.[id number] [facility] 2020-10-02 10:15:00 2020-10-02 10:15:00 Outpatient R FIDEL CRISTINA [facility] [id number] [facility] 2020-09-22 13:00:00 2020-09-22 13:00:00 Outpatient R [facility] [id number] [facility] 2020-09-22 07:55:13 2020-09-22 08:25:13 Telemedici ne Visit Fellow, [facility] Abram Lynne [facility] .114 350.1.13.10 4.2.7.2.[id number] [facility] 2020-09-21 00:00:00 2020-09-21 00:00:00 Telephone Fellow, Tyler [facility] 1.114 350.1.13.10 4.2.7.2.[id number] [facility] 2020-09-20 00:00:00 2020-09-20 00:00:00 Abstract Fidel [facility] 1..114 350.1.13.10 4.2.7.2.[id number] [facility] 2020-09-18 00:00:00 2020-09-18 00:00:00 Abstract Fidel [facility] 1..114 350.1.13.10 4.2.7.2.[id number] 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 2020-09-15 15:30:00 2020-09-15 15:30:00 Outpatient P NETTE CADET SANGEETA [facility] [id number] [facility] 2020-09-11 09:30:00 2020-09-11 09:30:00 Outpatient P [facility] [id number] [facility] 2020-09-04 13:30:00 2020-09-04 13:30:00 Outpatient R CRISTINA PARRA [facility] [id number] [facility] 2020-09-04 11:08:18 2020-09-04 11:32:19 Office Visit Javi Mcpherson [facility] 1..114 350.1.13.10 4.2.7.2.[id number] [facility] 2020-08-30 00:00:00 2020-08-30 00:00:[address] [facility] 1.2.840.114 350.1.13.10 4.2.7.2.[id number] [facility] 2020-08-28 14:46:00 2020-08-28 19:07:00 Emergency Juanjose Ross [facility] 1.2.840.114 350.1.13.10 4.2.7.2.[id number] [facility] 2020-08-28 00:00:00 2020-08-28 00:00:00 Orders Only Doctor Unassigned, Willow [facility] 1.2.840.114 350.1.13.10 4.2.7.2.[id number] [facility] 2020-08-23 13:30:00 2020-08-23 13:30:00 Outpatient R JAVI MCPHERSON [facility] [id number] [facility] 2020-08-23 12:51:04 2020-08-23 13:06:04 Sheet Metal Operator Visit [facility] Javi Mcpherson [facility] 1.2.840.114 350.1.13.10 4.2.7.2.[id number] [facility] 2020-07-31 12:45:19 2020-07-31 13:00:19 Sheet Metal Operator [facility] 1.2.840.114 350.1.13.10 4.2.7.2.[id number] [facility] 2020-07-31 12:31:15 2020-07-31 12:44:24 Office Visit Javi Mcpherson [facility] 1.2.840.114 350.1.13.10 4.2.7.2.[id number] [facility] 2020-07-31 10:00:00 2020-07-31 10:00:00 Outpatient MATTHEW LARA [facility] [id number] [facility] 2020-07-19 00:00:00 2020-07-19 00:00:00 Telephone Glenna Jeong [facility] 1.2.840.114 350.1.13.10 4.2.7.2.[id number] [facility] 2020-07-18 00:00:00 2020-07-18 00:00:00 Refgabi Bravo [facility] 1.2840.114 350.1.13.10 4.2.7.2.686 [id number] 2020-07-18 00:00:00 2020-07-18 00:00:00 [facility] 1.2840.114 350.1.13.10 4.2.7.2.[id number] [facility] 2020-07-17 09:57:38 2020-07-17 10:40:11 Nurse Visit Visit, [facility] Dermatology Nurse Sienna [facility] 1..114 350.1.13.10 4.2.7.2.[id number] [facility] 2020-07-17 10:00:00 2020-07-17 10:00:00 Outpatient MATTHEW LARA [facility] [id number] [facility] 2020-07-13 12:45:00 2020-07-13 12:45:00 Outpatient JAVI LAGUERRE [facility] [id number] [facility] 2020-07-13 11:27:26 2020-07-13 12:41:40 Sheet Metal Operator Visit [facility] Javi Mcpherson [facility] 1..114 350.1.13.10 4.2.7.2.[id number] [facility] 2020-07-05 11:10:53 2020-07-05 11:25:53 Sheet Metal Operator Visit [facility] Javi Mcpherson [facility] 1.2.840.114 350.1.13.10 4.2.7.2.[id number] [facility] 2020-07-05 09:26:49 2020-07-05 11:10:38 Office Visit Gwendolyn Kaye [facility] 1.2.840.114 350.1.13.10 4.2.7.2.686 [id number] 2020-07-05 09:26:49 2020-07-05 11:10:38 Office Visit Gwendolyn Kaye Brandon [facility] 1.2.840.114 350.1.13.10 4.2.7.2.[id number] [facility] 2020-07-05 09:30:00 2020-07-05 09:30:00 Outpatient JAVI LAGUERRE [facility] [id number] [facility] 2020-07-05 00:00:00 2020-07-05 00:00:00 Orders Only Doctor Unassigned, Willow [facility] 1.2840.114 350.1.13.10 4.2.7.2.[id number] [facility] 2020-06-28 10:00:00 2020-06-28 10:00:00 Outpatient CAROLYN MONSALVE [facility] [id number] [facility] 2020-06-06 20:09:00 2020-06-06 20:40:00 Emergency Alice Pena [facility] 1.2.840.114 350.1.13.10 4.2.7.2.[id number] [facility] 2020-06-06 19:55:00 2020-06-06 19:55:00 Emergency X [facility] ERT [id number] [facility] 2020-06-06 00:00:00 2020-06-06 00:00:00 Orders Only Doctor Unassigned, Willow [facility] 1.2.840.114 350.1.13.10 4.2.7.2.[id number] [facility] 2019-06-17 14:42:45 2019-06-17 16:33:00 Emergency X LAURI CURRY [facility] ERT [id number] [facility] Results Test Description Test Time Test Comments Results Resul t Comments Source CT ABDOMEN PELVIS W CONTRAST 3 01:34:03 EXAM: CT ABDOMEN PELVIS W CONTRAST ORDERING PROVIDER: TAYLOR MALCOLM HISTORY: 44 years-old Female; Provided Ordering Indication: Abdominalabscess/infe ction suspected . History independently obtained from [facility]: "abdominal pain x 4 days reportsworsened with oral intake. " TECHNIQUE: Contiguous axial imaging from the level of the lung basesthrough the proximal thighs was performed with intravenous contrast.Coronal and sagittal reconstructions were obtained. COMPARISON: CT abdomen pelvis obtained on 05/06/2023, 02/02/2023 FINDINGS: The lung bases are essentially clear aside for atelectatic changes. Pleuralthickening is redemonstrated. A 1.8 cm soft tissue structure isincidentally seen near the posterior depth left breast shown on series 3image 1. The liver is enlarged at 18.3 cm and the parenchyma is diffuselyhypoattenuat ing. No focal lesion is seen. Cholecystectomy changes are present with unremarkable appearance of thebile ducts. The pancreas, spleen, and adrenal glands enhance appropriately and have nosuspicious findings. A 2.9 cm indeterminate cystic structure of the left midpole has been seenstable since 02/02/2023. The kidneys are otherwise unremarkable. The gastrointestinal tract has no areas of wall thickening, obstruction, orabnormal dilatation. A normal appendix is noted. The urinary bladder is collapsed. The uterus and adnexa have no suspiciouslesions. Nabothian cysts are noted. A 4.6 cm right adnexal cyst isunchanged from 02/02/2023. No free air, fluid collection, or suspicious lymphadenopathy is visualized. The vasculature is patent. No acute osseous abnormality or aggressiveosseous lesion is visualized. Multilevel thoracolumbar spondylosis changesare seen. Bilateral L5 pars defects are present with grade 1anterolisthesis of L5 on S1. The soft tissues otherwise of no concerningfindings. [facility] [id number] 23:07:20* Test Item Value Reference Range Interpretation Comme nts TROPONIN I (test code = 0316761895) 0.006 ng/mL <=0.034 KASHIF (test code = [...] of biotin. Lab Interpretation (test code = 89911-0) Normal [facility] (NA, K, CL, CO2, GLUCOSE, BUN, CREATININE, CA)2023-10-03 22:56:00* Test Item Value Reference Range Interpretation Comme nts NA (test code = 8940276327) 137 mmol/L 135-145 K (test code = 9201467370) 4.0 mmol/L 3.5-5.0 CL (test code = 0968088576) 107 mmol/L 98-108 CO2 TOTAL (test code = 7897202600) 24 mmol/L 23-31 AGAP (test code = 1886365168) 6 2-16 BUN (test code = 3028405533) 19 mg/dL 7-23 GLUCOSE (test code = 7136298778) 110 mg/dL 70-110 CREATININE (test code = 2160-0) 0.64 mg/dL 0.50-1.04 CALCIUM (test code = 9458848160) 8.7 mg/dL 8.6-10.6 eGFR (test code = 17515-1) 112.6 mL/min/1.73m2 CKD-EPI eGFR (20 21). Assuming creatinine has been stable day-to-day for at least three months, the eGFR indicates Category G1 (>= 90 mL/min/1.73 m2) [facility] with [id number] 22:54:01* Test Item Value Reference Range Interpretation [...] 31.9 g/dL 31.6-35.1 RDW-SD (test code = 52062-6) 46.0 fL 39.0-49.9 RDW-CV (test code = 788-0) 14.4 % 12.0-15.5 PLT (test code = 777-3) 271 166-358 MPV (test code = 39991-5) 10.1 fL 9.5-12.9 NRBC/100 WBC (test code = 4127419192) 0.0 0.0-10.0 NRBC x10^3 (test code = 3562127573) See_Comment [Automated Explorer.ioa ge] The system which generated this result transmitted reference range: 10*3/?L. The reference range was not used to interpret this result as normal/abnormal. GRAN MAT (NEUT) % (test code = 770-8) 58.8 % IMM GRAN % (test code = 4517609591) 0.50 % LYMPH % (test code = 736-9) 32.9 % MONO % (test code = 5905-5) 6.2 % EOS % (test code = 713-8) 1.1 % BASO % (test code = 706-2) 0.5 % GRAN MAT x10^3(ANC) (test code = 2724633894) 6.03 10*3/uL 1.88-7.09 IMM GRAN x10^3 (test code = 3671228795) 0.05 10*3/uL 0.00-0.06 LYMPH x10^3 (test code = 731-0) 3.37 10*3/uL 1.32-3.29 H MONO x10^3 (test code = 742-7) 0.64 10*3/uL 0.33-0.92 EOS x10^3 (test code = 711-2) 0.11 10*3/uL 0.03-0.39 BASO x10^3 (test code = 704-7) 0.05 10*3/uL 0.01-0.07 Lab Interpretation (test code = 52151-9) Abnormal [facility] 1 [id number] 22:06:13Ordering Physician: TAYLOR BYNUM Clinical Indication: cp Additional Clinical Information: Technical Limitations: None Comparison: None Technique: Portable chest obtained at 1608 hours Findings: Shallow inspiration. Cardiomegaly. Mild asymmetric rightinterstitial infiltrateUnSt. Luke's [facility] ACTIVATED PARTIAL THRMPLAS [id number] 00:48:15* Test Item Value Reference Range Interpretation Comme [facility] APTT Patient (test code = 3173-2) 28 See_Comment [Automated message] The system which generated this result transmitted reference range: 23 - 38 Seconds. The reference range was not used to interpret this result as normal/abnormal. KASHIF (test code = KASHIF) The [facility] patient population mean normal value for aPTT is 30 seconds. Lab Interpretation (test code = 84189-5) Normal [facility] Center[facility] / [id number] 00:46:14* Test Item Value Reference Range Interpretation Comme [facility] PROTIME PATIENT (test code = 5964-2) 13.4 [...] the indications. Lab Interpretation (test code = 31899-1) Normal [facility] Center[facility]. METABOLIC PANEL (47478)2023-05-07 00:39:34* Test Item Value Reference Range Interpretation Comme nts NA (test code = 8156777031) 140 mmol/L 135-145 K (test code = 0169972831) 3.2 mmol/L 3.5-5.0 L CL (test code = 1569078027) 105 mmol/L 98-108 CO2 TOTAL (test code = 3598809938) 24 mmol/L 23-31 AGAP (test code = 8773962132) 11 2-16 BUN (test code = 2960928229) 11 mg/dL 7-23 GLUCOSE (test code = 4126085081) 114 mg/dL 70-110 H CREATININE (test code = 2260998453) 0.47 mg/dL 0.50-1.04 L TOTAL BILI (test code = 7001739013) 0.5 mg/dL 0.1-1.1 CALCIUM (test code = 8001680724) 8.7 mg/dL 8.6-10.6 T PROTEIN (test code = 7124545479) 7.6 g/dL 6.3-8.2 ALBUMIN (test code = 9533881993) 3.9 g/dL 3.5-5.0 ALK PHOS (test code = 5453935941) 99 U/L 34-122 ALTv (test code = 1742-6) 50 U/L 5-35 H AST(SGOT) (test code = 8686437165) 56 U/L 13-40 H eGFR (test code = 0585334902) 144.6 mL/min/1.73m2 KASHIF (test code = KASHIF) [...] imaging tests). Lab Interpretation (test code = 26130-4) Abnormal [facility] Center[facility]2023-[facility] 00:39:14* Test Item Value Reference Range Interpretation Comme nts LIPASE (test code = 4333928103) 154 U/L 0-220 Lab Interpretation (test cod e = 33823-1) Normal [facility] WITH [id number] 00:25:48* Test Item Value Reference Range Interpretation Comme nts WBC (test code = 6690-2) 10.00 See_Comment [Automated [employer]] The system which generated this result transmitted reference range: 4.30 - 11.10 10*3/?L. The reference range was not used to interpret this result as normal/abnormal. RBC (test code = 789-8) 4.53 See_Comment [EventSneaker] The system which generated this result transmitted [...] 33.7 g/dL 31.6-35.1 RDW-SD (test code = 57522-0) 44.6 fL 39.0-49.9 RDW-CV (test code = 788-0) 13.7 % 12.0-15.5 PLT (test code = 777-3) 329 See_Comment [Automated messa ge] The system which generated this result transmitted reference range: 166 - 358 10*3/?L. The reference range was not used to interpret this result as normal/abnormal. MPV (test code = 66226-4) 10.1 fL 9.5-12.9 NRBC/100 WBC (test code = 7626319797) 0.0 See_Comment [Automated me ssage] The system which generated this result transmitted reference range: 0.0 - 10.0 /100 WBCs. The reference range was not used to interpret this result as normal/abnormal. NRBC x10^3 (test code = 8971899721) See_Comment [Automated me ssage] The system which generated this result transmitted reference range: 10*3/?L. The reference range was not used to interpret this result as normal/abnormal. GRAN MAT (NEUT) % (test code = 770-8) 60.3 % IMM GRAN % (test code = 5906076402) 0.40 % LYMPH % (test code = 736-9) 31.3 % MONO % (test code = 5905-5) 6.0 % EOS % (test code = 713-8) 1.5 % BASO % (test code = 706-2) 0.5 % GRAN MAT x10^3(ANC) (test code = 5447222495) 6.03 10*3/uL 1.88-7.09 IMM GRAN x10^3 (test code = 0544177287) 0.04 10*3/uL 0.00-0.06 LYMPH x10^3 (test code = 731-0) 3.13 10*3/uL 1.32-3.29 MONO x10^3 (test code = 742-7) 0.60 10*3/uL 0.33-0.92 EOS x10^3 (test code = 711-2) 0.15 10*3/uL 0.03-0.39 BASO x10^3 (test code = 704-7) 0.05 10*3/uL 0.01-0.07 [facility] CenterPO[facility] [id number] 23:53:00* Test Item Value Reference Range Interpretation Comme nts POCT PREG (test code = 1605) Negative On board controls acceptable with C Line (test code = 3574) Yes POCT PREG LOT # (test code = 3575) [id number] POCT PREG TEST DATE ( test code = 3576) 2024-09-24 Lab Interpretation (test cod e = 25842-9) Normal [facility] [id number] 18:13:10* Test Item Value Reference Range Interpretation Comme [facility] Case Report (test code = 6717374059) Surgical Pathology ?Case: [id number] ? Authorizing Provider: ?Marcos Rodriguez MD ?Collected: ? 04/25/2023 1313 ?Ordering Location: ? ? GI Endoscopy OR Department Received: ?04/28/2023 1017 ?Pathologist: ? Lee Glez MD PhD ?Specimen: ? ?STOMACH, Gastric forcep bxs - Eval for HPylori ? Final Diagnosis (test code = 6703234088) r2bkwBPjZEMlb1vbRFWlfD FuZzEwMzNcZnRuYmpcdWMx GMcgseSsHFxajCexFIC6TK KmHK4ncYcipGg4yVmaEDFa llX8sQZpJUzkg5wfDPZ7e1 bawbsrOPZaIBtaCt0wrZUw uOpjPjHxTXSdKXc0tD50BF OwcL1juWMtMNw1TPOoxUEs prJyImIkWVAbaUMvrYJ9QS KpWZ7oqufxXHjkWKhsLTPr jsQ8YTTuqICkG9AgBKGtLL 7nrtjbWHJ2QNbkVAPsKUA9 OeQdRQUkj9Rvahu8LyOajW FyZFxwbGFpblxmczIwXHBh caMGVcPMEE8OWFGFCIUDDS 0MP7x5LEIqiaFsUCKjFD3a N1ZHQFFIMdCDEQEJO7HvM3 hWSNLEVoBZJGQWX8mBN7eG LNRYPM4ODZNsdGSuONEyIS EkIPEXRkUGTpONA9FKDoNV FR9ZZZBXGTQSKZHdJRDGSq RJRklFRFxwYXIgICAgICAt JQ2HMErpOOtVN1WQOV0AM2 FOSVNNUyBJREVOVElGSUVE XHBhclxwYXJkXHBhciBHaW seEFG1zcELSP50screKVRu cGFyXHBhcmRccGFyfXtccn YoSOtfq0DdI9HkXgBpEJgx bnNpXGRlZmxhbmcxMDMzXG W7njYoXYKaCEllETJiRCak Ek1wuUOsmRygNrTdDNWuu2 bkfoGQDClkKzNcA119ALLk PVrne1cgf3RmYDRdxNPjp9 P0EFIBmnwmeZr9g9ccOgEe UdB8aFVcWJknG0vsccKthZ FrA2KraIDzeEe7aPegO52p o2M0EclvK4onCGDzAJOdI5 KvGZ0hPJOyZpt7XWS2FWF7 DRUbUJLqF2NoTP9oGMHaeA DxLAs1y2oirYqyMLVxHKI8 m8rvMUtqrfD8LN4zwm9uxG u5w6nkzhOiNWYvEAXkuZCH ERToR7FthZipTl8daGp0aP lfFcgdDYK5Vew2OZ5bjy31 fto3rJkkJPWpindfGrB3RP ffJTIbmzriDEb3EGmnEKXs iXX8EABcgMKaB0AhTDIxKK 9jimw0SYW5TZrxYBCpVmY9 NDBcaGVhZGVyeTcyMFxmb2 71WVU2WgJqOE0bF9Jib1R4 rX5ypUDfRPYolQYpSyTjOE Zbxn9rmPNoSGbax2NfEGZ1 yhT7oOHdiTUxAWOmRZ05Gi ecd6XxAkzsOHN5UVThmvPt k8Gfv8ehEoOqheJbE3frJ8 JyZHJoZWFkXHBnYnJkcmZv i3Xbv2GvjMJrzCy8x9oaKP TbYNQusOhnv7adYWE3PEDe C9N5bZZnj7gzUBfpKXLroU P2qsA5NOLcjVBlH2SceU6l BKFgZA8mnuj0d6afEKX9GT btDAChNrX6osO7BUNkgSAh OILqqPnbDOkhz755OQY7Fj LtKAGnf4WiQ2SrbIemU02n hHxgR56jROBqeXbnlX7tdE yhbS1zVkOsPfKrGMysdAcf bGFpblxmMVxmczIwXGxhbm quMTHwBThhE0qoFcZbBITm eOjyZNbkp8GgGZBbCEKfJq xmczIwXHBhciBJIGhhdmUg oFIjj34oOQbybSPwCBDbNA ucAVEjcThrn7WyM4nmOV2c Y4FepGTudcYzynWsWOioFT Pwb9r7bWCgcJxlo6ZrbCHw EC68uiHbKGRbHDR5ADBxf2 rhII83trfuMgMzhU62beDn pxZcHKEeo2kpM1lrbABao0 Onl0UmanXjLXcks7XaXI7j aVGndixwuZW2UMFhtPNfev ElyrH1aWtlFYOrvN6beN6k bQhhfG0mIfSeXuVjEOowIH 7pMQMeK5mdfQJtMWAfLKNw B9cxUtGueP2gkXchXwxpms E7RDYzct40 Clinical Information (test code = 7786898360) Abdominal pain, generalized [R10.84]1. Gastric forcep bxs - Eval for HPylori Gross Description (test code = 8332016953) k7bwvGDyJZCoaWBTPRB9BZ PhRH7lnHoxvIy9xVkgKEGa pqN2bEUtGSwlx2gwJMY6e1 cbteDPUlvtAFGtEH0yIRoc XAAiQE6zOnWlPBRxRiEqSK BhcGVydzEyMjQwXHBhcGVy xXC6VHMiBF4iaweyRBwbMD krKDNfuvZ1EZHmgBHcJ1Zr FMZjGM7dpkizNZT1ZLSMHf ktNp7xjLVdbGcfXwKjHvBa YXJzZXQwXGZuaWwgQXJpYW o4nC3YXbkhMVM1FUXXUacj CtstdUmwn4NoaTXxKDAfLS xcaWQgNTEwMDAgXFxkYiBP FmGpSlE1Wfq1YQRsZcV4NN u0AMAEEFDnKzsjWSO8RYB4 KXc5ZVAoBK1uDSvbfXUaFX hrVkocDHmiF912ZYsuGDOo V9PhQ6LjONduMzZqIBesMJ BoGDOkCZriQUCgU7VHQUZs HTO4OtVkWYFdZKq7FOfqY8 ZRKYTkMQDvDdIdEtS9MdX6 HVq0MQISBm6uNTfzScJiKP W6VNK2DYs1KyUzQNVuCzQb ZSDlFYOsDEvjjRLlKA6boS xlVCVuHM0UNZZxEKxgPKIy UrEgQ9IXD5rHUI6bUDthrU JjaFxmczIyXHBhciANClxw VDVbUY6FPULqMEjqYIq1rg CzECMxBvKbDELmL96bp5TI h5DvDO6ICLv4cgGnzdxgsL 3mESGztlJdVLbNtYGovX7x jyPAIYsmTXBoY4SgmnZjWN ssEBXvvg6pfWiyCVnmEeMm bGVkIHdpdGggdGhlIHBhdG nsplQqZ4H8osSsTJ9fZVPB SFGwwR3qPQYwYNNum3ScsE TysIxyC6HktXAoGcQaf8Sh IPJfHfgaFGU8HEieKq6tEL mdDBW7eL2yjHmgUxWnH2R2 GAKkLOMch89waGG8tbPgYp QpYKUhweIhpoFzZ9OyAZIr d32ejNG9qZLtqEGzCmBaJ0 5wubKbXPjtCuNzJE7cRQGw DWzdSHwbOVT1BBU8EFDmeL Msk2xxxbivTB24MAcaTT9g YKuqBX5iZDRuRHssRHIwG4 NqH1G7RVxbMDFyOAHwxOHy dJ2vwkDjoaWkuQn9SQUaUR P1dMKkiIteJWDgFyabvWH3 DFPrVqVbxvNfy3WkgCg8vG WfOIszCSZvmY7dcK8yUFCt XHBhciANClxwYXIgDQpcc2 EzMFxlcGljWHNhMzAgDQpK kNxeVFZNG0xrfUTjHTskJY EWSEtOQ1VJMI1PBGQteJIG XRJ3EB0pTSgvWQVjQ7EmE8 ImybB0g7pqzLksf8SluRWs LX5bmSDsVC5AAWJtzvRxQV p9 Disclaimer (test code = [id number]) z4theCFqULKzn2oeSHZedL FuZzEwMzNcZnRuYmpcdWMx KEasxhZjONkwp0LpL3EpBx AwMFxhbnNpXGRlZmxhbmcx GWCkEGU3trNbHINgFNqzAM FqLMewOi3cbDPamSxiHfLe WFIaf9pjaxQDZDwiYhGgZ3 80JIZfDKdul3afi3UrMEAa vGDfq2E6BOVJoulnxZx7yH wvC95qv5P2YoseD8gkGYVb XASeV0LzUV6oZBGqZcd5LG B6VCX3EYYpNYStG8YoHS3g WYMfrHVqHIx1p1rwtQyfYK LwBBY2t5mkBHjpbqPjOG3c tn0sbKe8g2zcacKuLHJqNT RvwFDXBHDbG9MycBykAc5r dRz7jCgeNcewELD9Dnx1KV 6vql47pxy3zBvmNPKygrfh XaV3DIvdJVZkyaavDTd3KI siMXOduMD4NXZsnUQwR2Gp EMReNO7yjfz6MPY4UZhbMX DwRoW6CZJpuQWyLQAfmQav DTpvk138SGP3ZtHsTR6nM6 Jls4P9bL3ssGLySQVcdEFa RjFuDXDrlh2qnYZtEBebw6 CdZYH1jbW6wOExiLYiTLHw ZK35Oxubx0HaVwoem0EyQ3 3bhHO0ZSlky2khPB1bKuL4 yoLhIJnct9fvyY1aExI7AK owQC6iQO8pUJEszU1bznmr XHBnYnJkcmhlYWRccGdicm HlOs5fpPchUDB5ZObdJ0du gR1zEmN4NHjpR9ftuE6kNA m1PDxlcBO0CIRkiJ2aTE2r yxgyh7czYYcbFMtpQTTxsd I6cgO3GKImoVYgT0NyrQ0d IYFyFR7liyjmi3ubXAZ6PF fwXVRpJLF7VnYmUTTcn6It szy2ImLdg9JdrGEyKTpdV4 8vi630RPVoufMwW8rxrCZh tzbnxRGpfjvxTAgwpgW0AV AdxsQmo5DwWITpTYE0DCfk MXvkgUPkXOCdqEjdb0jbJ2 RscGFyXHBsYWluXGYxXGZz MjBcbGFuZzEwMzNcaGljaF jwJHfuIyZsELRoZUleG3mj UyRqI1UwBOAmApNlvYCoD8 ggVGhpcyByZXBvcnQgbWF5 PBzlB7v8XTZyneFoqHt6oq KhLjFpEROdZVX5NWvlkVEw URCcg4WjlaydbWAuZp5owW GrMXHreE8gQOMxOAKzHPlu FD0vuOb2MKVMyBBgoOPlTr LEVNVwIT49gqUvWVEHwjpd s0M3FKayBKNdd7YthUAyH4 non5DqLVHxr44pBT0dj6Y9 p6vdXLP8UG5fx9OgMBQqhH PbpSBqXHSso3Lrarkuq2Bb YSQwfbXwq0QfYCQcedOuoE LoPNDdvwQwms0fgiXgEWGd XHBmS3YgztmkyMqconMlUN Hxoc1axuNnMMI9MXTIKBLp BVHbh1UsfP7bhCDJKFG1jS Rqqi8mpdANeWWeZXMltt07 BWInRF7tR5cvHXCfHFGteg BasAVif6TjMJUchXX9bYOq KD8IWqEXy33fNKZhUVLSan UcRLVlhHyovVF1ikI5xU5g IChGREEpLlx+IFRoZSBGRE JpTY3uyiCgt0XxmgLzlJeu BMRrvZFow0TpuKMgl4IltZ ryt8ZfyRWfbDJtRV2sLICq clxwYXIgVVRNQiBMYWJvcm X6y0ZeGRDqOFWtNWN7cHvd gxm2ZTXluQ2cEHBfP8ktks fzJJpnDQImz5EacU8owKBG cDNiq5UhfBKtkVTWhAJxAJ 5qdgUnQSfTSJbXSPW0pfMy DLTuv1EbVFegB8gxO39egA iylJe7dER1EYV4kH4jPnm+ IFxwYXJccGFyIEFwcHJvcH OxMRVcoCztyyQcR2XgacYh mB7zsBSyqkScCR8gRU7iR5 F7vGOhRVYttlCnb8juSLor dmUgYmVlbiByZXZpZXdlZC Lxo9XoDGrvXUN6OBixfnZr bmNsdWRpbmcgSCZFLCBTcG LzrAPeZFB9LUkrsdFnkhAy BC1xiD8bnPgvqH0zuNEepM M9wqnvYILvGMGwfAonGIRe ZW4xfQzanX5cFeAdQvZgWX qqNG1hPTIgN6xxsFXvQQOq ITKeS6taPcIvdN3pyXpgWU xjZjJcZnMyMFxwYXJccGFy XHBsYWluXGYxXGZzMjBcbG FuZzEwMzNcaGljaFxmMVxk LyGhIQBlASekF1frEmUkW6 XaZNYwAlMqeSQfH2tdXPcb HNF2IJHuZT7jlWZgFZ76kY Yqe6qnKNxhsEqoyf0uJ71g tARcSXjdnVrtBVIfi60oi3 FcTOMapbArml8iHTQjkfT0 yY6pGUEvpTrfZGKemHCfUS Whc7IsNRevoGFarnLjDNqa IOScLWCkyCZoufG0jlTaov LemoPvBWSdmWonCVSfd1Gn BFLuPIsix2Wajz1jgHPhAT GamaXSpXwrvACmsD5rQ3Hb ICFpVVGxkq6vMHHccP6qAB txv1YdqwydHQGuHQNwKEKm ljYuhn1gACQlbOAJVP9XEU fvuBEfv7WjyyKiG7jUXOP2 NUQwNjYwMjgxKSBleGNlcH KiZAGmeq08VIAusD9zyFrj CHYtsA1yaN2nyCriaB2mZx IvHlWoUEbqQI5eWSTkI3ta wOHgKYInHGFnU9plIaLrfW 9jaFxmMVxjZjJcZnMyMFxw YXJ9fQ== Embedded Images (test code = [id number]) [facility] [id number] 18:13:10* Test Item Value Reference Range Interpretation Comme nts Case Report (test code = 5676241137) Surgical Pathology ?Case: [id number] ? Authorizing Provider: ?Marcos Rodriguez MD ?Collected: ? 04/25/2023 1313 ?Ordering Location: ? ? GI Endoscopy OR Department Received: ?04/28/2023 1017 ?Pathologist: ? Lee Glez MD PhD ?Specimen: ? ?STOMACH, Gastric forcep bxs - Eval for HPylori ? Final Diagnosis (test code = 0805948228) b7xfxPJeKPEke8iqCFCewA FuZzEwMzNcZnRuYmpcdWMx AUlmegTfQFfdmHriPDD0MQ FyUA1iyHzduEw1lZhhOIQu ldQ0rIDcWGafi2htLJC1f7 ryorqxMOZhIFzrRw9mfHJg bVbnBdRbEKYaUUj9jN51PM KeeJ7cyCEbLBz2BJNbwNFg mtHkJvUzVVCtcWStrES7TW NeIX4ehhsuECmkHFyrORLm jlE3OXFrbRDlV0EwRFChJD 6ugblrLHA1HEknDVTcSHS2 UoRsYZZgs3Fpgdx5WcOabY FyZFxwbGFpblxmczIwXHBh jfGRQcYVES1XCHSNDDVQLP 5WU5t8GEYgaeFhABDaFF0f N2UKUDZSPxJYMOQVI6VpQ2 tYPKDWOsRTUFGEN7eCZ4mL RIXMYP4WMBVobXBlFZHkPK MpJTULNxFNTzOBU9RMHoZV XU1ODTTWPJFVYSFmGGKHIc RJRklFRFxwYXIgICAgICAt WT2BZSdvCOzEE1FZDE4IX0 FOSVNNUyBJREVOVElGSUVE XHBhclxwYXJkXHBhciBHaW nyFHM4kgWYBX23riukGDBs cGFyXHBhcmRccGFyfXtccn VuPOljv8GaW1ZkTsCgTNgk bnNpXGRlZmxhbmcxMDMzXG F9ynIvIBHuSBjeQGViGHtq Ps5xpDKjjTkpPfPwHJLph0 tsvxTSTJfqFqLfE897OGRp TAksf8vsk4YhOAFknQNyw3 F9STGCywzxiZd7k6kiAhQk ZxK1oRPdUMqaW4jfhrBzkJ FxM2RoyHUpdEx4lWxvG43e g3W9CtzgB0htQLWeURYiE8 GePP7pQBDuPyb3BUF3XPC7 OQYaIJHgU8XrVM9hQMLqsZ QaVBm4u9hvvBmfGIBnHOQ1 b5wqIZoakqY7QR7pkj0vjJ j3p9trvsBxXMCuIKTihRPE TFOcC4DceWydYk4gdTz3bH lsSkkbUPS3Ufb1YP7ddg60 xlg0oGhaZVMvxmiaFzY8UF wvVMOjfrfnXDk6ZSeuLAQl eIC5QWFzuGCaV8NxBDLiXT 8xleo7BQA1PJrvJMXbYjJ3 NDBcaGVhZGVyeTcyMFxmb2 49GFU9MuVuEN3lK2Kzp6Y1 kE1nfMSeBHErdSLvTyYuUP Ihzl8hzWHgPLkvx0PhEIX3 hwZ1xCVevNXoLTPtUR22Ed mhl1LyQizqFPD6RJLirpZj k7Pom8tfAhQyooDkR1qyZ4 JyZHJoZWFkXHBnYnJkcmZv i8Ikb8UqmYAzfBy2d2dbIL YmFZDgfQixr5cfXVE7SLRn E6Y2aCLic7goFUliZDRfnM B7rbU7PKCpkWZlF7AbwW2g REPkUM2bcgo8u6mfLPX1UV ehJQEsIeG6olE5ABIttBIm ESEhmBpfORahg847KKR0Vw JiQNBag8EsY7KxbJyyF71m gSgrY75rILSkxNpsvN6muB njqB2vKuHrOgBmFHksjTyk bGFpblxmMVxmczIwXGxhbm sfGDXbPKpgH9xnIwPpMJGu gPdlKBxlh1BfWCDnPESjTg xmczIwXHBhciBJIGhhdmUg sYObb47sIHpyqGLtYNDdYH kbPCJccXfpe7XcO8zuMW1x W1YypPMjqhDrlfFzETsmVN Jam3c5nYSmjNmyp3WfqXJb LH14daKiPHYnCTA7CGUph9 yjIF80fsyjYuEylM67tkXw iaXsEVNah4jiR9zsaHJxy1 Lpz4CkqrDwMMsrz3NoTU1w rLDfiniifKJ4AQTwoPIvzq HtbsD3eZwzKQRxwN4elI7e lZhfhM5eZiSoDeYaMYhkKZ 4sOCYrP7jqnKOiYIWbYVOk J4aoOcChjI0ldJvwUwdrsa E1ARFapy14 Clinical Information (test code = 7540462583) Abdominal pain, generalized [R10.84]1. Gastric forcep bxs - Eval for HPylori Gross Description (test code = 0877311713) h5dewPAsPFUmdSZCDPR4ED TrDG4mgWzjiQt1rDupUMQm sfS5fWQhGRvgq4kaCBP5v8 pehfXRKqluAZZhUF6vECvu HWVjVJ6eUpUhBVJnGcNaUN BhcGVydzEyMjQwXHBhcGVy zKT9FCJnPV0rokklDXllKZ saDTIubqF6MMSslNWzB7Fv ZYXiPV2jrrpjACQ7CNMVHu wjSr4hwDBlzNbxEyVeOjHx YXJzZXQwXGZuaWwgQXJpYW m6hB7VXfidUVM0HCZBZivl WfrmlYvmu1RnqZErCQVbHZ xcaWQgNTEwMDAgXFxkYiBP BqIoFpF8Htj3SQCvZzT1WU b8RDSBGGRuWmnwBUR3SZW9 RYr3RQEqES4bQNxfxVMkLL hnAkmaONwiC274DTtpNNBt H3PxD6BiVVeaRnKpOUbjOP WiYPZrEYicUIDzM0YVJOOb ANJ1EfUsHMEoPHr1QOnyX4 NBEEFcBCFfMaMpXlB9SaJ8 KTc2PJMYDw3cQGzkYqRkWS Y9LSH6YYc4QoBoSZLlDdAy AQFjYIKhTEhqpRYvID9dyP isXSZyFQ5KLBBjAOmeVVSk EgDkC4PAH6wHVJ4cMOnquY JjaFxmczIyXHBhciANClxw RGZhFN1XHMRiXFtpTZp8jx AfMFWaOoPnXMFkQ38kp9SL j3UaNZ9IIXl4jjOkqxgoxE 8sROTnqbDkOYbWbZPkoD2s dcOEIGxnOOQoM9PisxVmXA qgYRRuhn4arGehBDfdEcMq bGVkIHdpdGggdGhlIHBhdG djwvJxG3C7hhBdRI4zVJSP TTSxvF2xZPWcENRks2FkrI JmyJejY3YsqNYrAjDze0Kg DJKnQzlnPQI7YUraCn5nRU uhWLQ4uS6taLkzUsCdM7J9 BHPiOLBiw05awQD3fbWaQd LtBRWrevFqthJfX8OwPYTt c11miCQ7xHCsxKVoYaSeP5 6ixfLaVYcuJxXxDH6cJLMw DTtiCTsaPUI3ZAC7UABfbK Svg7vuvuytYR50RMdhAR6z SRpaQU0uGKMdNAwsJIVhU2 GuS9E7MRjlXKUyDLVdzOHu vT0drtHkkvOzuHe9GZTsYR I2dSIapYzeHRReDnsdnCI3 IKBrTsByqbYzg6DrqHr7aR KbMBpqEENdaV5seN4rXMWp XHBhciANClxwYXIgDQpcc2 EzMFxlcGljWHNhMzAgDQpK nUjdZSQNU0uugXCbLAcdWY XBLQdUV3PRYF2JFVFirNMF OCG3CA2zLHrqBBBmS2CwU3 FziaC3t1gwuXwoe7JdvOEb GV7azRWxAF9UTEOyupNzZT p9 Disclaimer (test code = 5093134890) l3cxuFIjLNDlz8gjWPEppG FuZzEwMzNcZnRuYmpcdWMx JJpziwFnRMyuk8VxR9RaRt AwMFxhbnNpXGRlZmxhbmcx JVFeKNJ0hlSeJAXuZThfZT WaKBwkAh2nhROtfBumYlOd BIBva2gadbCUXLwpSmYsW8 04SAEoSQhan4ldt2JlWYFx kXRef3O4ESFBysvapQy6eA soC84cv1Z7HqlxN0yhIGPj ORKfN1ZgXN4uFKJyKwk7KE W0MQT9LKXtJWUiX3HfXU9l ODZttMBdTTt3g1elbNrhSL CfLWM0v9jbTFybkfVbRE3k hi2xoJw4y5nhjtBiAWNxUT PqtSAUCBMzT8WbiQjiAv5z hBo8dWpjVvkmTUT7Dwx3UB 1dzd59hbe6cKzuOKKkphki ChY1KWzdTOOxstrxQZs2MS riYFBrgAI0ODKnkQShS8Lz EQOcKB2qtys7OUR2VMduDA MfLzP1COXdwDAaGZOwqSuc JJbbw704EVX9IkQwON0eK6 Twm7V8eP4dxVJrUNUbqVKr FpMbMUNmdb4adRTtLEhtj8 FnNGF6ttY2pZBvnQSdYFTj SM16Vesxh6IzMorcr8VgR6 2vtHU3CMaja2ljXV8kKzD2 cxHxLMpyz0nazG3tYyM9UW vxYP2qLV6rFMIuhE6vuuwm XHBnYnJkcmhlYWRccGdicm XxXd3yeEooPRX3UGlyN7dk nQ3vCmZ3KOgrO2eqfR4yFH d7LIafeNP5ABLlgS8bRP6s uhrca9ulEHujPKcpUHRdwp Z3xaF9MFTvaZDiI0JohP6h LPAfXM5stokdd8glLBO1TQ jlTWXlGUD2JiQjQJNvh7Fv zfi3RxEam4GwnAOdQTlzB7 8iw840TLTexkGvJ0psqDAh yhstdKAewicoMOvjjrG7EH EefdXbk6BlEUPgVKO3XDum NMhrmRPvAZGyoDwfm9obL1 RscGFyXHBsYWluXGYxXGZz MjBcbGFuZzEwMzNcaGljaF amGEzaUxDjNFXxSEznT3no OrBuL9HvJQCaLkYohMAuM1 ggVGhpcyByZXBvcnQgbWF5 OHvhQ8j7WHVgfnRwbXh3xy UxZaTfDYPjIVQ1IQtkiSKo FQNjq5LgkxrizXGqIw5zhP OaUNVpaD3iYHCgCNTjLEza AL5ddJv4FXXUrFCheCVsOn KNVLFdOG52zzDbFSQPxerd j2B5YTrcMSPcn6CyzUXfE1 sll6WhYNIfv60yIJ4qe4U7 p3nrFGE3DQ5hs0LaGZRjyK PezIVcPRUfi4Opvmbqg4Qb OBDyixSln7DqZWZqtwCkwO LfBIJliiSorw7grtCrLMRg ZCIyR5QoxzbtdYpqixRdMY Tlyt3syyFqSSA3QOJVPJTr BCIps2QyfK2ecJUIONT3iY Rpmw5iveIJvJEgYXSclb51 LRGhVJ1cC4kkVOImZCIyju NawECui4ZvAOChrJF2iDZl PP9QZrIBn61jIWPjVOVZmd GdKZIiyRaclTS1mvG3cL7j IChGREEpLlx+IFRoZSBGRE NhUB7hqtTir0RuahLasOaz SKMfxUBkx0WobEWrw5UmxP wwn2BhhCYdbPTiDR7mYZPa clxwYXIgVVRNQiBMYWJvcm O5f5YmSIZxKGNqFZI5cGup jpj6NOYpjM3wJPGtM9bwjr urXGofFMGzb4JqaY0hlCTJ vOBly8QdmVGodFHGoAWjHT 6chbKaNFrQSBwHVDA7mfQf RZUwt8NbRRsyU6thE88rjM wmoYl1vZZ6OBK5iK8cUzu+ IFxwYXJccGFyIEFwcHJvcH ZmFWIcrKnjwfByV1VcbkLh kO1kcCBqihJzUP6mYE5qC1 P3uOYsGSAkpvKjd3aoFAig dmUgYmVlbiByZXZpZXdlZC Oeh6JwEAhsZEU8DJyqceRi bmNsdWRpbmcgSCZFLCBTcG NncQPrVGF3LIpidrIrylJg IG1pqS3zkOsawY0gbGQqeQ Z6vpdlSUFhACPhqSzjZSCe LU5qaMxdyP2wNxJyPnUwEB guNT3vSIGvB8tssPVzZEGw FEOkV6zuEdRcyQ2tkLwvXD xjZjJcZnMyMFxwYXJccGFy XHBsYWluXGYxXGZzMjBcbG FuZzEwMzNcaGljaFxmMVxk TyNaEHXtNAqtK9heAbNcG6 EnZMFmIyZhnHBnA1hjVRdb YWR9NBKmJK4hqGMkKE33gZ Hjj6vqHYdoeWtvhj4zN85d iRWdRGamtMagNUTkt12jz3 ZmUJJvmkZzxe3pZIItrzJ8 zP8jSJKwiRrcZTMmeUTgTR Xym9VrYJodwMCukrKeURtd XKCwYWYyhGWhphV0ylVefy VkxjKjKRQpwSksWNXny4Un TGCpNVcrm1Nvxe4uqUPmUY RtwoMTcJkmgHRjdS4vY3Gg QLIwAXHytz1eCGMbhI2bVS mii2OmlukjHVDnNBUnEZHj phMzdh9wDKRedODCIR7BIZ dwhWDhz1LsdfCtR5mAUSF0 NUQwNjYwMjgxKSBleGNlcH NmUQVgjg84KIXeuH5pjHvw TLSdgE3svN3hhUysiB3eGu TtOwBbBHqbEC3bFQKlT4cb aLKpYNYrAQGhW6dwEgCmyM 9jaFxmMVxjZjJcZnMyMFxw YXJ9fQ== Embedded Images (test code = 8702677695) [facility] [id number] 17:55:00* Test Item Value Reference Range Interpretation Comme nts POCT PREG (test code = 1605) Negative On board controls acceptable with C Line (test code = 3574) Yes POCT PREG LOT # (test code = 3575) [id number] POCT PREG TEST DATE ( test code = 3576) Lab Interpretation (test cod e = 49726-1) Normal [facility] [id number] 17:55:00* Test Item Value Reference Range Interpretation Comme nts POCT PREG (test code = 1605) Negative On board controls acceptable with C Line (test code = 3574) Yes POCT PREG LOT # (test code = 3575) [id number] POCT PREG TEST DATE ( test code = 3576) Lab Interpretation (test cod e = 75285-2) Normal [facility] [id number] 17:55:00* Test Item Value Reference Range Interpretation Comme nts POCT PREG (test code = 1605) Negative On board controls acceptable with C Line (test code = 3574) Yes POCT PREG LOT # (test code = 3575) [id number] POCT PREG TEST DATE ( test code = 3576) Lab Interpretation (test cod e = 43269-2) [facility] 00:07:45* Test Item Value Reference Range Interpretation Comme nts NA (test code = 0572689237) 141 mmol/L 135-145 K (test code = 0456203630) 3.6 mmol/L 3.5-5.0 CL (test code = 1472091905) 106 mmol/L 98-108 CO2 TOTAL (test code = 0662464430) 25 mmol/L 23-31 AGAP (test code = 1835849846) 10 2-16 BUN (test code = 3754015653) 12 mg/dL 7-23 GLUCOSE (test code = 4041682149) 91 mg/dL 70-110 CREATININE (test code = 9568469160) 0.61 mg/dL 0.50-1.04 TOTAL BILI (test code = 1983774979) 0.9 mg/dL 0.1-1.1 CALCIUM (test code = 0005904162) 8.9 mg/dL 8.6-10.6 T PROTEIN (test code = 2610146165) 7.6 g/dL 6.3-8.2 ALBUMIN (test code = 0003580094) 4.0 g/dL 3.5-5.0 ALK PHOS (test code = 1506025998) 81 U/L 34-122 ALTv (test code = 1742-6) 62 U/L 5-35 H AST(SGOT) (test code = 9707725341) 98 U/L 13-40 H eGFR (test code = 8936160669) 107.0 mL/min/1.73m2 KASHIF (test code = KASHIF) [...] imaging tests). Lab Interpretation (test code = 69064-9) [facility]* Test Item Value Reference Range Interpretation Comme nts LIPASE (test code = 8788844188) 111 U/L 0-220 Lab Interpretation (test cod e = 72881-7) [facility] (10692)2023-04-22 00:07:45* Test Item Value Reference Range Interpretation Comme nts NA (test code = 9739506225) 141 mmol/L 135-145 K (test code = 7371226122) 3.6 mmol/L 3.5-5.0 CL (test code = 4844107511) 106 mmol/L 98-108 CO2 TOTAL (test code = 2263865442) 25 mmol/L 23-31 AGAP (test code = 8564884288) 10 2-16 BUN (test code = 6919906776) 12 mg/dL 7-23 GLUCOSE (test code = 3431439172) 91 mg/dL 70-110 CREATININE (test code = 7834476314) 0.61 mg/dL 0.50-1.04 TOTAL BILI (test code = 2073235671) 0.9 mg/dL 0.1-1.1 CALCIUM (test code = 1706313369) 8.9 mg/dL 8.6-10.6 T PROTEIN (test code = 8855215218) 7.6 g/dL 6.3-8.2 ALBUMIN (test code = 3957469373) 4.0 g/dL 3.5-5.0 ALK PHOS (test code = 5978457636) 81 U/L 34-122 ALTv (test code = 1742-6) 62 U/L 5-35 H AST(SGOT) (test code = 0658309086) 98 U/L 13-40 H eGFR (test code = 6577175200) 107.0 mL/min/1.73m2 KASHIF (test code = KASHIF) [...] imaging tests). Lab Interpretation (test code = 28892-3) [facility]* Test Item Value Reference Range Interpretation Comme nts LIPASE (test code = 6667812601) 111 U/L 0-220 Lab Interpretation (test cod e = 16137-1) [facility] (44653)2023-04-22 00:07:45* Test Item Value Reference Range Interpretation Comme nts NA (test code = 7095845294) 141 mmol/L 135-145 K (test code = 6634495959) 3.6 mmol/L 3.5-5.0 CL (test code = 4545083270) 106 mmol/L 98-108 CO2 TOTAL (test code = 3282629106) 25 mmol/L 23-31 AGAP (test code = 1360175083) 10 2-16 BUN (test code = 0219484934) 12 mg/dL 7-23 GLUCOSE (test code = 7058984127) 91 mg/dL 70-110 CREATININE (test code = 1231854340) 0.61 mg/dL 0.50-1.04 TOTAL BILI (test code = 2955339368) 0.9 mg/dL 0.1-1.1 CALCIUM (test code = 4949201486) 8.9 mg/dL 8.6-10.6 T PROTEIN (test code = 2122584025) 7.6 g/dL 6.3-8.2 ALBUMIN (test code = 6929675863) 4.0 g/dL 3.5-5.0 ALK PHOS (test code = 7973581018) 81 U/L 34-122 ALTv (test code = 1742-6) 62 U/L 5-35 H AST(SGOT) (test code = 2226981079) 98 U/L 13-40 H eGFR (test code = 7797997016) 107.0 mL/min/1.73m2 KASHIF (test code = KASHIF) [...] imaging tests). Lab Interpretation (test code = 73558-5) [facility]:07:45* Test Item Value Reference Range Interpretation Comme nts LIPASE (test code = 5095053661) 111 U/L 0-220 Lab Interpretation (test cod e = 25280-6) Normal [facility], [id number] 23:59:37* Test Item Value Reference Range Interpretation Comme nts PREG SERUM (test code = 0201274515) Negative KASHIF (test code = KASHIF) Less than 10 IU/L. ?If low titer or ectopic is suspected, resubmit specimen in 48-72 hours. [facility], [id number] 23:59:37* Test Item Value Reference Range Interpretation Comme nts PREG SERUM (test code = 2311348925) Negative KASHIF (test code = KASHIF) Less than 10 IU/L. ?If low titer or ectopic is suspected, resubmit specimen in 48-72 hours. [facility], [id number] 23:59:37* Test Item Value Reference Range Interpretation Comme nts PREG SERUM (test code = 0953217284) Negative KASHIF (test code = KASHIF) Less than 10 IU/L. ?If low titer or ectopic is suspected, resubmit specimen in 48-72 hours. [facility] WITH [id number] 23:49:04* Test Item Value Reference Range Interpretation [...] 34.0 g/dL 31.6-35.1 RDW-SD (test code = 71848-2) 44.9 fL 39.0-49.9 RDW-CV (test code = 788-0) 14.0 % 12.0-15.5 PLT (test code = 777-3) 288 See_Comment [Automated messa ge] The system which generated this result transmitted reference range: 166 - 358 10*3/?L. The reference range was not used to interpret this result as normal/abnormal. MPV (test code = 06457-1) 10.0 fL 9.5-12.9 NRBC/100 WBC (test code = 9831940556) 0.0 See_Comment [Automated me ssage] The system which generated this result transmitted reference range: 0.0 - 10.0 /100 WBCs. The reference range was not used to interpret this result as normal/abnormal. NRBC x10^3 (test code = 6303535362) See_Comment [Automated me ssage] The system which generated this result transmitted reference range: 10*3/?L. The reference range was not used to interpret this result as normal/abnormal. GRAN MAT (NEUT) % (test code = 770-8) 57.3 % IMM GRAN % (test code = 8223656291) 0.20 % LYMPH % (test code = 736-9) 34.7 % MONO % (test code = 5905-5) 6.0 % EOS % (test code = 713-8) 1.3 % BASO % (test code = 706-2) 0.5 % GRAN MAT x10^3(ANC) (test code = 7284619477) 5.05 10*3/uL 1.88-7.09 IMM GRAN x10^3 (test code = 7767779797) 0.00-0.06 LYMPH x10^3 (test code = 731-0) 3.05 10*3/uL 1.32-3.29 MONO x10^3 (test code = 742-7) 0.53 10*3/uL 0.33-0.92 EOS x10^3 (test code = 711-2) 0.11 10*3/uL 0.03-0.39 BASO x10^3 (test code = 704-7) 0.04 10*3/uL 0.01-0.07 [facility] WITH [id number] 23:49:04* Test Item Value Reference Range Interpretation [...] 34.0 g/dL 31.6-35.1 RDW-SD (test code = 76111-3) 44.9 fL 39.0-49.9 RDW-CV (test code = 788-0) 14.0 % 12.0-15.5 PLT (test code = 777-3) 288 See_Comment [Automated messa ge] The system which generated this result transmitted reference range: 166 - 358 10*3/?L. The reference range was not used to interpret this result as normal/abnormal. MPV (test code = 24931-2) 10.0 fL 9.5-12.9 NRBC/100 WBC (test code = 9126919164) 0.0 See_Comment [Automated me ssage] The system which generated this result transmitted reference range: 0.0 - 10.0 /100 WBCs. The reference range was not used to interpret this result as normal/abnormal. NRBC x10^3 (test code = 1963501068) See_Comment [Automated me ssage] The system which generated this result transmitted reference range: 10*3/?L. The reference range was not used to interpret this result as normal/abnormal. GRAN MAT (NEUT) % (test code = 770-8) 57.3 % IMM GRAN % (test code = 1574464136) 0.20 % LYMPH % (test code = 736-9) 34.7 % MONO % (test code = 5905-5) 6.0 % EOS % (test code = 713-8) 1.3 % BASO % (test code = 706-2) 0.5 % GRAN MAT x10^3(ANC) (test code = 2592937225) 5.05 10*3/uL 1.88-7.09 IMM GRAN x10^3 (test code = 3396745650) 0.00-0.06 LYMPH x10^3 (test code = 731-0) 3.05 10*3/uL 1.32-3.29 MONO x10^3 (test code = 742-7) 0.53 10*3/uL 0.33-0.92 EOS x10^3 (test code = 711-2) 0.11 10*3/uL 0.03-0.39 BASO x10^3 (test code = 704-7) 0.04 10*3/uL 0.01-0.07 [facility] WITH [id number] 23:49:04* Test Item Value Reference Range Interpretation [...] 34.0 g/dL 31.6-35.1 RDW-SD (test code = 26028-3) 44.9 fL 39.0-49.9 RDW-CV (test code = 788-0) 14.0 % 12.0-15.5 PLT (test code = 777-3) 288 See_Comment [Automated messa ge] The system which generated this result transmitted reference range: 166 - 358 10*3/?L. The reference range was not used to interpret this result as normal/abnormal. MPV (test code = 79258-3) 10.0 fL 9.5-12.9 NRBC/100 WBC (test code = 2826662139) 0.0 See_Comment [Automated Lytro ssage] The system which generated this result transmitted reference range: 0.0 - 10.0 /100 WBCs. The reference range was not used to interpret this result as normal/abnormal. NRBC x10^3 (test code = 0449566322) See_Comment [Automated me ssage] The system which generated this result transmitted reference range: 10*3/?L. The reference range was not used to interpret this result as normal/abnormal. GRAN MAT (NEUT) % (test code = 770-8) 57.3 % IMM GRAN % (test code = 9470674469) 0.20 % LYMPH % (test code = 736-9) 34.7 % MONO % (test code = 5905-5) 6.0 % EOS % (test code = 713-8) 1.3 % BASO % (test code = 706-2) 0.5 % GRAN MAT x10^3(ANC) (test code = 8283185116) 5.05 10*3/uL 1.88-7.09 IMM GRAN x10^3 (test code = 2879011467) 0.00-0.06 LYMPH x10^3 (test code = 731-0) 3.05 10*3/uL 1.32-3.29 MONO x10^3 (test code = 742-7) 0.53 10*3/uL 0.33-0.92 EOS x10^3 (test code = 711-2) 0.11 10*3/uL 0.03-0.39 BASO x10^3 (test code = 704-7) 0.04 10*3/uL 0.01-0.07 [facility] WITH [id number] 01:21:02* Test Item Value Reference Range Interpretation [...] 33.2 g/dL 31.6-35.1 RDW-SD (test code = 58461-8) 46.4 fL 39.0-49.9 RDW-CV (test code = 788-0) 14.3 % 12.0-15.5 PLT (test code = 777-3) 263 See_Comment [Automated messa ge] The system which generated this result transmitted reference range: 166 - 358 10*3/?L. The reference range was not used to interpret this result as normal/abnormal. MPV (test code = 75507-5) 10.6 fL 9.5-12.9 NRBC/100 WBC (test code = 5846960139) 0.0 See_Comment [Automated Lytro ssage] The system which generated this result transmitted reference range: 0.0 - 10.0 /100 WBCs. The reference range was not used to interpret this result as normal/abnormal. NRBC x10^3 (test code = 5341521265) See_Comment [Automated [employer] ge] The system which generated this result transmitted reference range: 10*3/?L. The reference range was not used to interpret this result as normal/abnormal. GRAN MAT (NEUT) % (test code = 770-8) 52.2 % IMM GRAN % (test code = 4341373007) 0.40 % LYMPH % (test code = 736-9) 39.3 % MONO % (test code = 5905-5) 6.7 % EOS % (test code = 713-8) 0.9 % BASO % (test code = 706-2) 0.5 % GRAN MAT x10^3(ANC) (test code = 3702117906) 5.80 10*3/uL 1.88-7.09 IMM GRAN x10^3 (test code = 2811234705) 0.04 10*3/uL 0.00-0.06 LYMPH x10^3 (test code = 731-0) 4.35 10*3/uL 1.32-3.29 H MONO x10^3 (test code = 742-7) 0.74 10*3/uL 0.33-0.92 EOS x10^3 (test code = 711-2) 0.10 10*3/uL 0.03-0.39 BASO x10^3 (test code = 704-7) 0.05 10*3/uL 0.01-0.07 Lab Interpretation (test code = 53710-1) [id number]* Test Item Value Reference Range Interpretation Comme nts TROPONIN I (test code = 9949135024) 0.006 ng/mL <=0.034 KASHIF (test code = [...] of biotin. Lab Interpretation (test code = 30722-5) [facility] (03419)2023-[facility]-12 01:01:21* Test Item Value Reference Range Interpretation Comme nts NA (test code = 5857668985) 139 mmol/L 135-145 K (test code = 1932523868) 3.9 mmol/L 3.5-5.0 CL (test code = 8386980590) 103 mmol/L 98-108 CO2 TOTAL (test code = 8576702463) 26 mmol/L 23-31 AGAP (test code = 3516536185) 10 2-16 BUN (test code = 9471087964) 8 mg/dL 7-23 GLUCOSE (test code = 7801946874) 92 mg/dL 70-110 CREATININE (test code = 9290111927) 0.62 mg/dL 0.50-1.04 TOTAL BILI (test code = 7181584366) 1.0 mg/dL 0.1-1.1 CALCIUM (test code = 4042829685) 9.2 mg/dL 8.6-10.6 T PROTEIN (test code = 8978354903) 8.9 g/dL 6.3-8.2 H ALBUMIN (test code = 9423289352) 4.3 g/dL 3.5-5.0 ALK PHOS (test code = 3373570930) 102 U/L 34-122 ALTv (test code = 1742-6) 68 U/L 5-35 H AST(SGOT) (test code = 9071452015) 86 U/L 13-40 H eGFR (test code = 3818596392) 105.1 mL/min/1.73m2 KASHIF (test code = KASHIF) [...] imaging tests). Lab Interpretation (test code = 63636-7) [facility] Test Item Value Reference Range Interpretation Comme nts LIPASE (test code = 5957741105) 108 U/L 0-220 Lab Interpretation (test cod e = 77076-4) [facility] [id number] 11:11:03* Test Item Value Reference Range Interpretation Comme nts TROPONIN I (test code = 0560498704) 0.009 ng/mL <=0.034 KASHIF (test code = [...] of biotin. Lab Interpretation (test code = 65978-5) Normal [facility] [id number] 02:10:36* Test Item Value Reference Range Interpretation Comme nts TROPONIN I (test code = 8430874095) 0.015 ng/mL <=0.034 KASHIF (test code = [...] of biotin. Lab Interpretation (test code = 15262-8) Normal [facility]. METABOLIC PANEL (16098)2023-02-03 01:27:17* Test Item Value Reference Range Interpretation Comme nts NA (test code = 9773910170) 139 mmol/L 135-145 K (test code = 9616811019) 3.8 mmol/L 3.5-5.0 CL (test code = 3522650640) 102 mmol/L 98-108 CO2 TOTAL (test code = 2202585855) 25 mmol/L 23-31 AGAP (test code = 6333219252) 12 2-16 BUN (test code = 9608236217) 15 mg/dL 7-23 GLUCOSE (test code = 0103016942) 126 mg/dL 70-110 H CREATININE (test code = 9345456360) 0.69 mg/dL 0.50-1.04 TOTAL BILI (test code = 5333961858) 1.0 mg/dL 0.1-1.1 CALCIUM (test code = 3304930698) 9.4 mg/dL 8.6-10.6 T PROTEIN (test code = 6978104407) 9.3 g/dL 6.3-8.2 H ALBUMIN (test code = 4784912364) 4.5 g/dL 3.5-5.0 ALK PHOS (test code = 6202192709) 135 U/L 34-122 H ALTv (test code = 1742-6) 112 U/L 5-35 H AST(SGOT) (test code = 6707544871) 201 U/L 13-40 H eGFR (test code = 5174053051) 92.9 mL/min/1.73m2 KASHIF (test code = KASHIF) [...] imaging tests). Lab Interpretation (test code = 73101-1) [facility]17* Test Item Value Reference Range Interpretation Comme nts LIPASE (test code = 9724186523) 69 U/L 0-220 Lab Interpretation (test cod e = 70979-0) Normal [facility] WITH [id number] 01:17:35* Test Item Value Reference Range Interpretation Comme nts WBC (test code = 6690-2) 13.07 See_Comment H [Automated messa boolino] The system which generated this result transmitted reference range: 4.30 - 11.10 10*3/?L. The reference range was not used to interpret this result as normal/abnormal. RBC (test code = 789-8) 5.26 See_Comment H [Automated [employer] boolino] The system which generated this result transmitted [...] 32.8 g/dL 31.6-35.1 RDW-SD (test code = 25731-8) 47.7 fL 39.0-49.9 RDW-CV (test code = 788-0) 14.9 % 12.0-15.5 PLT (test code = 777-3) 326 See_Comment [Automated messa ge] The system which generated this result transmitted reference range: 166 - 358 10*3/?L. The reference range was not used to interpret this result as normal/abnormal. MPV (test code = 16489-6) 9.6 fL 9.5-12.9 NRBC/100 WBC (test code = 7152450781) 0.0 See_Comment [Automated Lytro ssage] The system which generated this result transmitted reference range: 0.0 - 10.0 /100 WBCs. The reference range was not used to interpret this result as normal/abnormal. NRBC x10^3 (test code = 2673946412) See_Comment [Automated messa ge] The system which generated this result transmitted reference range: 10*3/?L. The reference range was not used to interpret this result as normal/abnormal. GRAN MAT (NEUT) % (test code = 770-8) 59.7 % IMM GRAN % (test code = 8146950493) 0.30 % LYMPH % (test code = 736-9) 33.4 % MONO % (test code = 5905-5) 5.3 % EOS % (test code = 713-8) 0.8 % BASO % (test code = 706-2) 0.5 % GRAN MAT x10^3(ANC) (test code = 4288186567) 7.80 10*3/uL 1.88-7.09 H IMM GRAN x10^3 (test code = 1624745448) 0.04 10*3/uL 0.00-0.06 LYMPH x10^3 (test code = 731-0) 4.37 10*3/uL 1.32-3.29 H MONO x10^3 (test code = 742-7) 0.69 10*3/uL 0.33-0.92 EOS x10^3 (test code = 711-2) 0.10 10*3/uL 0.03-0.39 BASO x10^3 (test code = 704-7) 0.07 10*3/uL 0.01-0.07 Lab Interpretation (test code = 31313-7) Abnormal [facility] [id number] 00:43:00* Test Item Value Reference Range Interpretation Comme nts POCT PREG (test code = 1605) Negative On board controls acceptable with C Line (test code = 3574) Yes POCT PREG LOT # (test code = 3575) [id number] POCT PREG TEST DATE ( test code = 3576) 07-09-2024 Lab Interpretation (test cod e = 03912-4) Normal [facility] MOLECULAR [id number] 19:47:14* Test Item Value Reference Range Interpretation Comme nts POCT Molecular FluA (test co de = 99577-1) Negative Negative POCT Molecular FluB (test co de = 52280-3) Negative Negative Lab Interpretation (test cod e = 30565-1) Normal [facility] MOLECULAR [id number] 19:47:14* Test Item Value Reference Range Interpretation Comme nts POCT Molecular FluA (test co de = 11801-3) Negative Negative POCT Molecular FluB (test co de = 92277-5) Negative Negative Lab Interpretation (test cod e = 97713-7) Normal [facility] MOLECULAR [id number] 19:47:14* Test Item Value Reference Range Interpretation Comme nts POCT Molecular FluA (test co de = 28366-3) Negative Negative POCT Molecular FluB (test co de = 68134-5) Negative Negative Lab Interpretation (test cod e = 54098-2) Normal [facility] MOLECULAR [id number] 19:47:14* Test Item Value Reference Range Interpretation Comme nts POCT Molecular FluA (test co de = 93082-6) Negative Negative POCT Molecular FluB (test co de = 43986-9) Negative Negative Lab Interpretation (test cod e = 14927-6) Normal [facility] History and Physical Notes Date/Time Note Provider Source 2023-02-25 23:16:40 Formatting of this n ote is different from the original. [facility] Hospitalist Admission H&P Date of Service: 02/25/2023 CHIEF COMPLAINT: Left-sided weakness and sudden loss of vision; this resolved. Also with persistent abdominal pain after eating x1 month HISTORY OF PRESENT ILLNESS Red Slater is a 43 year old female [...] her kidneys as well as fatty liver disease. She states she has a history of hypertension and anxiety disorder. The only medicine that works for her hypertension is hydrochlorothiazide. She tends to have symptoms with the other medications. She will be admitted to the hospital for further evaluation. PAST MEDICAL HISTORY Past Medical History: Diagnosis Date Abnormal Pap smear 2002 unknown result Abnormal uterine bleeding Blood transfusion, without reported diagnosis 1985 during surgery HTN (hypertension) PID (pelvic inflammatory disease) Sneddon-Gonzalez disease PAST SURGICAL HISTORY Past Surgical History: Procedure Laterality Date SECTION N/A 03/27/2021 Surgeon: Herminio Isaac MD; Location: Labor and Delivery OR Location-[place] DRAINAGE LYMPH NODE,SIMPLE 1985 TUBAL LIGATION N/A 03/27/2021 Surgeon: Herminio Isaac MD; Location: Labor and Delivery OR Location-[place] ALLERGIES No Known Allergies MEDICATIONS Current home medication list reviewed: Current Discharge Medication List STOP taking these medications dicyclomine 20 mg tablet Comments: Reason for Stopping: pantoprazole (PROTONIX) 40 mg EC tablet Comments: Reason for Stopping: FAMILY HISTORY Family History Problem Relation Age of Onset Diabetes Mother Heart Father Diabetes Father Hypertension Father SOCIAL HISTORY Social History Socioeconomic History Marital status: Tobacco Use Smoking status: Former Passive exposure: Past Smokeless tobacco: Former Quit date: 12/27/2011 Substance and Sexual Activity Alcohol use: Yes Drug use: No Comment: hx of marijuana and cocaine abuse-clean x 3 years Sexual activity: Yes Partners: Male control/protection: None Comment: last had sex in 2010 REVIEW OF SYSTEMS 10 systems negative except per HPI PHYSICAL EXAMINATION BP (!) 153/93 | Pulse 89 | Temp 36.4 ?C (97.6 ?F) | Resp 18 | Ht 1.651 m (5' 5") | Wt 165.5 kg (364 lb 12.8 oz) | LMP 02/02/2023 | SpO2 94% | BMI 60.71 kg/m? General: No acute distress HEENT: Normal oral mucosa, anicteric sclerae, NCAT Cardiovascular: RRR Lungs: Symmetric expansion, CTAB Abdomen: Soft, NTND Musculoskeletal: No synovitis, normal muscle mass Genitourinary: Normal Skin: No rash, lesions Neuro: AAOx3, no focal deficits; no pronator drift Psych: Normal affect LABS - reviewed pertinent labs as below: CBC BMP PT/INR WBC x10^3 (/uL) Date Value [...] prior to CTA head/neck. History obtained from [facility]: "Pt was making lunch approx 1400 when she started to feel dizzy, diaphoretic with chest pressure. [place] like she was going to pass out [...] The superior cerebellar arteries are patent. Both BRIDAL CONSULTANT are widely patent. No sizable P-comm is visualized. The intracranial ICAs are patent. An anterior communicating artery is present. The BETY and MCA are widely patent. No high-grade stenosis or aneurysm is visualized. The dural venous sinuses are well opacified. Impression Unremarkable CT angiogram of the head and neck. Preliminary Report Dictated by Resident: Primitivo Earl I, Michael Pearl MD., have reviewed this study and agree with the above report. CT ACUTE STROKE ANGIOGRAM HEAD Narrative EXAM: CT STROKE ANGIOGRAM NECK, EXAM: CT STROKE ANGIOGRAM HEAD HISTORY: Neuro deficit, acute, stroke suspected Rad: please obtain POCT creatinine prior to CTA head/neck. History obtained from [facility]: "Pt was making lunch approx 1400 when she started to feel dizzy, diaphoretic with chest pressure. [place] like she was going to pass out [...] The superior cerebellar arteries are patent. Both BRIDAL CONSULTANT are widely patent. No sizable P-comm is visualized. The intracranial ICAs are patent. An anterior communicating artery is present. The BETY and MCA are widely patent. No high-grade stenosis or aneurysm is visualized. The dural venous sinuses are well opacified. Impression Unremarkable CT angiogram of the head and neck. Preliminary Report Dictated by Resident: Michael Sierra MD., have reviewed this study and agree with the above report. CT ACUTE STROKE HEAD WO CONTRAST Narrative CT STROKE HEAD WO CONTRAST HISTORY: Neuro [...] mass effect. No parenchymal attenuation abnormality. The ngo-white matter differentiation is preserved. The ASPECTS score is estimated to be 10. The mastoid air cells and paranasal air sinuses are clear. The calvarium and central skull base are unremarkable. Impression No acute intracranial hemorrhage or mass effect. Preliminary Report Dictated by Resident: Michael Frey MD., have reviewed this study and agree with the above report. ASSESSMENT: 1. Vsion loss and Left-sided weakness 2. Abdominal pain 3. Chest pain rule out acute coronary syndrome 4. History of hypertension 5. History of anxiety disorder 6. History of cholelithiasis 7. Fatty liver disease 8. Morbid obesity PLAN: 1. Gentle hydration 2. MRI of the brain 3. Rule out for acute coronary syndrome 4. Work-up abdominal pain 5. Strict blood pressure control 6. GI DVT prophylaxis Patient's acute finding was left-sided weakness and vision [...] an outpatient. Patient will be admitted for observation. DVT prophylaxis: enoxaparin Stress ulcer prophylaxis: pantoprazole Code status: 40 Advanced Care Planning (Z71.89) Above assessment and plan discussed at length with patient, patient expressed full understanding. Questions and concerned addressed. Surrogate decision maker: Spouse Level of care expected after discharge: Home Time spent: 3 minutes discussing the advanced care plan Smoking Cessation: (Z71.6) Tobacco user?: no Patient will require observation [place] [employer] TECHNICIAN was verified during stay Roman Mena MD T [facility] Notes Date/Time Note Provider Source 2024-03-23 14:04:39 Spoke with Anabelle at [facility] pharmacy and verbal order was given. No further action needed. T Julito Holder LVN [facility] 2024-03-23 13:40:07 Fine to call in verbal ok T [facility] 2024-03-23 13:21:21 Images from the original note were not included. Received fax from [facility], Dr. Zuluaga needs to sign and form needs to be faxed back. Please see below: Romina Vazquez [facility] 2024-02-26 16:25:00 Regarding: APPTESC Rheum ----- Message from Ebony Alexander sent at 02/26/2024 4:18 PM CDT ----- Red Slater is a 44 year old female or post op (no) n/a -Number of weeks n/a -Date of Surgery n/a Language: eng Specific Symptoms: Shoulder pain, pain in joints, hands and toes cramp, hard to walk, arms feel like they give out, knees hurt Specific Duration: x 2 months and getting worse APPT ESC Tala Elise RN [facility] 2024-02-26 16:25:00 Nurse's Note: 4:59 PM Red Slater is a 44 year old female. Called patient. "They were saying maybe I could get a sooner date than July appointment. I could talk to you about my pain and symptoms." Adult Triage Assessment Last Clinic Visit: 02/18/24 for GERD Primary Symptom: pain Onset / Duration: for the last 2 months, before it was intermittent but now it's persistent Location / Description: shoulders, toes, fingers, legs Pain / Severity: 10/10, every day constant Associated Symptoms: toes and fingers are stating to lock up and cramp up, shoulders are very painful, knees starting to give out when she walks, when she uses her arms for anything they feel like they are going to give out; left leg starting to swell noticed last week (swelling will decrease if elevates her leg) Fever / Method: denies Hydration: no changes to usual self Treatment so far: bought compression stockings, taking PT at home Effect on ADL's: significant change LMP: 02/13/24 Pre-existing condition / Immunocompromised: htn, obesity, autoimmune disease Disposition: After assessment and triage, patient advised to be seen by provider within 3 days. Since no available appointments noted. Routing to Rheumatology Clinic for review and follow up. Reason for Disposition [1] MODERATE pain (e.g., interferes with normal activities) AND [2] present > 3 days Protocols used: Shoulder Anpa-HSAGH-KM Tala Elise RN 02/26/2024 5:14 PM [facility] 2024-02-26 16:25:00 FWD to PSS, for appointment. Referral to Rheumatology made 02/19/2024? Fauzia Ch RN [facility] 2024-02-19 13:43:20 Patient is scheduled for testing. Matthew Fernandez [facility] 2024-02-19 12:06:51 Red Slater is a 44 year old female calling to schedule vascular lab US orders. Please assist [phone] (home) Whit Elise [facility] 2024-02-18 15:48:24 Forwarding to provider for review. Matthew Jaquez RN [facility] 2024-02-18 15:38:25 Red Slater is a 44 year old female Calling to see if dr is still going to send medication for sinus and pain today. Pt says the where discussed in appt but not sent Jessica Alvarez [facility] 2024-01-28 11:29:37 Forwarded to provider Rosa Castrejon MA [facility] 2024-01-28 11:17:47 Red Slater is a 44 year old female Pt was seen at the ER last night and prescribed esomeprazole 40 mg. Her insurance will not cover it and she is asking if Sabino Simmons could prescribe an alternative since the ER cannot or suggest an otc. [facility] [address] [place] [phone] Kaya Gonzalez [facility] 2024-01-27 21:50:44 Discussed and reviewed discharge instructions, follow up care with PCP, and prescription medications with patient. Pt verbalizes understanding without questions. Pt assisted to ER lobby with family. Discharged ambulatory, aaox4, breathing even/unlabored, in no acute distress. Shruthi Tucker RN [facility] 2024-01-27 21:20:47 Report received from Malia MCKAY. Mahesh Polanco RN [facility] 2024-01-27 20:04:57 Pt independently ambulatory too rr with UA sample collection cup Malia Mcdonough RN [facility] 2024-01-27 19:36:55 Pt transported to room via stretcher [facility] 2024-01-27 19:23:11 Pt transported via stretcher to [place] [facility] 2024-01-27 18:08:00 Red Slater is a 44 year old female presenting to ED with cc of 7/10 sharp abd pain for 4 days. Pt reports severe nausea, worsened by PO intake. Endorses 2 episodes of diarrhea today. Denies v/f/CP/SOB. PMHx gallbladder removal, autoimmune disease, HTN. Abd noted to be round, soft, tender to touch. Pt aaox4, respirations e/u, skin w/d/I. PIV established, continuous monitor connected, awaiting further updates. [facility] 2024-01-27 16:14:24 Red Slater is a 44 year old female presents to ED c/o abdominal pain x 4 days reports worsened with oral intake. PMH autoimmune disease. Pt is aox4 with gcs 15 skin warm and dry resp even and unlabored. NAD noted. Pt placed in green pool due to ED saturation. Yanna Alegria RN [facility] 2024-01-27 14:45:49 Forms faxed to [facility]-Rosa Castrejon Rosa Castrejon MA [facility] 2024-01-26 09:24:13 Form placed in provider folder for review. Jailyn De La O MA [facility] 2024-01-26 09:14:17 Images from the original note were not included. Nida Gutierrez [facility] 2023-11-28 10:14:23 VIT D 25OH (ng/mL) Date Value 11/26/2023 17 (L) T [facility] 2023-11-26 14:15:00 Images from the original note were not included. Venipuncture collection performed by clean technique on the left anticubitus. Total of 1 attempts were made. Slight pressure and a bandage/dressing were applied to the site(s). The patient experienced no complications. The following specimens were processed according to instructions and sent to [facility] laboratories per lab order on 11/26/2023 : LT BLUE SST 4 RED LAV 1 PPT DK GREEN (LiHep) DK GREEN (SodH) NGO DK BLUE (K2) DK BLUE (S) ACD Blood Culture NIPT/NTD [facility] 2023-10-10 15:45:00 Images from the original note were not included. Venipuncture collection performed by clean technique on the right anticubitus. Total of 1 attempts were made. Slight pressure and a bandage/dressing were applied to the site(s). The patient experienced no complications. The following specimens were processed according to instructions and sent to [facility] laboratories per lab order on 10/10/2023 : LT BLUE SST 1 RED LAV 1 PPT DK GREEN (LiHep) LT GREEN (LiHep) NGO DK BLUE (K2) DK BLUE (S) ACD Blood Culture NIPT Urine Urine Culture [facility] 2023-10-03 18:40:11 Pt discharged with diagnosis of muscle strain of chest wall. Printed and verbal instructions reviewed with and given to patient. No new prescriptions given for this visit. Pt verbalized understanding of teaching and recommended follow-up. Denies questions or concerns at this time. Pt ambulatory at discharge. Appears in no apparent distress. No ataxia noted. Waiting in lobby for transportation home. S ADMINISTRATION SPECIALIST Sayda Arauz RN [facility] 2023-10-03 15:05:23 [place] states: "Pt started having chest pain 1 hour ago. She was doing laundry. She did have some nausea on and off. Her pain is in her left chest. I gave 324 mg apirin and 1 NTG. She has a history of HTN and has been out of her meds" NA Vital RN [facility] 2023-10-03 15:00:00 [facility] Emergency Department Note Patient Name: Red Slater Date of : 1980 43 year old female Treatment Room: Room/bed info not found Primary Care Physician: Randy Chauhan Patient Escorted by: Self [9] Mode of Arrival: EMS - [facility] ([place]) [43] EMS Treatment Prior to ED Arrival: MEASUREMENT ANALYST treatment: Other (comment) MEASUREMENT ANALYST treatment comments: see triage note Travel and Exposure Screening: Symptoms Does patient have any of these symptoms?: (not recorded) Exposure Screening Has patient had contact with someone with a communicable disease in the last month?: (not recorded) Diseases exposed to:: (not recorded) Is Patient ?: (not recorded) Exposure Date: (not recorded) Chief Complaint: Chief Complaint Patient presents with Chest Pain History of Present Illness: HPI 43yo morbidly obese AAF presents today with left sided chest pain [...] workout 2 days ago but felt fine yesterday. Past Medical History/Immunizations: Past Medical History: Diagnosis Date Abnormal Pap smear 2002 unknown result Abnormal uterine bleeding Blood transfusion, without reported diagnosis 1986 during surgery HTN (hypertension) Morbid obesity with BMI of 50.0-59.9, adult PID (pelvic inflammatory disease) Sneddon-Gonzalez disease Tetanus received in last 5 years: No Childhood immunizations: Up-to-date Allergies: No Known Allergies Past Social History: Tobacco Use Former Passive Exposure: Past Smokeless Tobacco: Former user of smokeless tobacco; Quit 12/27/2011. Alcohol Use Not Currently. Drug Use Not Currently. Comments: hx of marijuana and cocaine abuse-clean x 3 years Sexual Activity Sexually active; Partners: Male; Control/Protection: None. Comments: last had sex in 2010 Past Surgical History: Past Surgical History: Procedure Laterality Date SECTION N/A 03/27/2021 Surgeon: Herminio Isaac MD; Location: Labor and Delivery OR Location-[place] DRAINAGE LYMPH NODE,SIMPLE 1985 ESOPHAGOGASTRODUODENOSCOPY N/A 04/25/2023 Surgeon: Marcos Rodriguez MD; Location: ENDOSCOPY ([facility]) OR LOCATION LAPAROSCOPIC ROBOTIC ASSISTED CHOLECYSTECTOMY N/A 04/29/2023 Surgeon: Antoinette Mccullough MD; Location: [facility] OR LOCATION TUBAL LIGATION N/A 03/27/2021 Surgeon: Herminio Isaac MD; Location: Labor and Delivery OR Location-[place] Review of Systems: Review of Systems Constitutional: Negative for activity change, diaphoresis, fatigue, fever and weight gain. HENT: Negative for congestion, ear pain, rhinorrhea, sore throat, tinnitus and trouble swallowing. Eyes: Negative for discharge and visual disturbance. Respiratory: Positive for chest tightness. Negative for cough. Breasts: Negative for pain. Cardiovascular: Negative for chest pain and palpitations. Gastrointestinal: Negative for abdominal pain, nausea and vomiting. Genitourinary: Negative for dysuria, hematuria and difficulty urinating. Musculoskeletal: Negative for joint swelling. Skin: Negative for rash and wound. Neurological: Negative for dizziness and headaches. Psychiatric/Behavioral: Negative for agitation and confusion. The patient is not nervous/anxious. Hematological: Does not bruise/bleed easily. Endocrine: Negative for weight gain. Physical Exam: ED Triage Vitals [10/03/23 1506] Weight 156.5 kg (345 lb) Actual or estimated Estimated by patient/family report Height 1.651 m (5' 5") BP (!) 169/93 Pulse 97 Resp 24 Temp 37.3 ?C (99.2 ?F) Temp source Oral SpO2 95 % Measured on Room air Physical Exam Vitals reviewed. Constitutional: Appearance: She is well-developed. She is obese. HENT: Head: Normocephalic and atraumatic. Eyes: Conjunctiva/sclera: Conjunctivae normal. Cardiovascular: Rate and Rhythm: Normal rate and regular rhythm. Heart sounds: Normal heart sounds. No murmur heard. Comments: Reproducible pain especially with movement of left arm Pulmonary: Effort: Pulmonary effort is normal. Breath sounds: Normal breath sounds. No stridor. Abdominal: General: Bowel sounds are normal. Palpations: Abdomen is soft. Tenderness: There is no abdominal tenderness. Musculoskeletal: General: Normal range of motion. Cervical back: Neck supple. Skin: General: Skin is warm and dry. Capillary Refill: Capillary refill takes less than 2 seconds. Neurological: Mental Status: She is alert and oriented to person, place, and time. Cranial Nerves: No cranial nerve deficit. Psychiatric: Behavior: Behavior normal. Radiology: XR CHEST 1 VW Final Result Ordering Physician: TAYLOR BYNUM Clinical Indication: cp Additional Clinical Information: Technical Limitations: None Comparison: None Technique: Portable chest obtained at 1608 hours Findings: Shallow inspiration. Cardiomegaly. Mild asymmetric right interstitial infiltrate IMPRESSION Asymmetric right interstitial infiltrate. END OF REPORT Lab Results: Lab Results CBC WITH DIFF - Abnormal Result Value Ref Range WBC 10.25 4.30 - 11.10 10*3/?L RBC 4.56 3.93 - 5.25 10*6/?L HGB 12.9 11.6 - 15.0 g/dL HCT 40.4 35.7 - 45.2 % MCV 88.6 80.6 - 95.5 fL MCH 28.3 25.9 - 32.8 pg MCHC 31.9 31.6 - 35.1 g/dL RDW-SD 46.0 39.0 - 49.9 fL RDW-CV 14.4 12.0 - 15.5 % PLT 271 166 - 358 10*3/?L MPV 10.1 9.5 - 12.9 fL NRBC/100 WBC 0.0 0.0 - 10.0 /100 WBCs NRBC x10 3 <0.01 10*3/?L GRAN MAT (NEUT) % 58.8 % IMM GRAN % 0.50 % LYMPH % 32.9 % MONO % 6.2 % EOS % 1.1 % BASO % 0.5 % GRAN MAT x10 3 (ANC) 6.03 1.88 - 7.09 10*3/uL IMM GRAN x10 3 0.05 0.00 - 0.06 10*3/uL LYMPH x10 3 3.37 (*) 1.32 - 3.29 10*3/uL MONO x10 3 0.64 0.33 - 0.92 10*3/uL EOS x10 3 0.11 0.03 - 0.39 10*3/uL BASO x10 3 0.05 0.01 - 0.07 10*3/uL TROPONIN I - Normal TROPONIN I 0.006 <=0.034 ng/mL BASIC METABOLIC PANEL (NA, K, CL, CO2, GLUCOSE, BUN, CREATININE, CA) NA 137 135 - 145 mmol/L K 4.0 3.5 - 5.0 mmol/L CL 107 98 - 108 mmol/L CO2 TOTAL 24 23 - 31 mmol/L AGAP 6 2 - 16 BUN 19 7 - 23 mg/dL GLUCOSE 110 70 - 110 mg/dL CREATININE 0.64 0.50 - 1.04 mg/dL CALCIUM 8.7 8.6 - 10.6 mg/dL eGFR 112.6 mL/min/1.73m2 EKG: If EKG completed, see Procedure Note. Orders and Treatments: Orders Placed This Encounter Procedures XR CHEST 1 VW XR CHEST 1 VW Troponin I Cbc with Diff Basic Metabolic Panel (NA, K, CL, CO2, GLUCOSE, BUN, CREATININE, CA) Orders Placed This Encounter Medications ketorolac (TORADOL) injection 15 mg First Provider Eval: ED Events Date/Time Event User Comments 10/03/23 1505 Medical Screening Begins TAYLOR BYNUM MD -- 10/03/23 1505 First Provider Evaluation TAYLOR BYNUM MD -- ED COURSE Diagnosis/Impression as of 10/03/23 1827 Chest pain, unspecified type Muscle strain of chest wall, initial encounter Procedures: Procedures MDM: Medical Decision Making EKG and labs are all normal including normal trop HEART score less than 3 Toradol given for pain with relief CXR shows initial concern for R infiltrate but patient was laying on rolled up bra Got a CXR lateral, which is clear - do NOT suspect infiltrate. Called Radiology who confirmed Discharged with chest wall muscle strain. Problems Addressed: Chest pain, unspecified type: acute illness or injury with systemic symptoms Muscle strain of chest wall, initial encounter: acute illness or injury with systemic symptoms Amount and/or Complexity of Data Reviewed Labs: ordered. Radiology: ordered. ECG/medicine tests: ordered and independent interpretation performed. Risk Prescription drug management. Flowsheet Documentation: Scoring Tools: No data recorded Disposition/Condition: ED Disposition ED Disposition Disch - Home Condition Stable Comment -- Discharge Medications: Patient's Medications START taking these medications No medications on file CONTINUE taking these medications which have NOT CHANGED GABAPENTIN 300 MG CAPSULE Take 1 capsule by mouth in the morning and 1 capsule at noon and 1 capsule in the evening. ONDANSETRON 4 MG DISINTEGRATING TABLET Take 1 tablet by mouth every 8 (eight) hours as needed for Nausea and Vomiting (N/V). PEG-ELECTROLYTE SOLN [id number] -5.86 GRAM SOLUTION Take as directed before colonoscopy START taking Modified Medications as Prescribed No medications on file STOP taking these medications No medications on file Follow-up: Electronically signed by: Taylor Bynum DO 10/03/23 1827 S ADMINISTRATION SPECIALIST [facility] 2023-09-30 14:47:48 Called patient, no answer, left voicemail asking patient to call back to clinic, left clinic phone#. NA Xiong LVN [facility] 2023-09-29 15:45:21 Red Slater is a 43 year old female Patient is calling requesting a sooner appt and states she has a flare up. Please advise. [phone] (home) Future Appointments In 1 month Javi Mcpherson MD [facility] Dermatology, [facility] S ADMINISTRATION SPECIALIST Nicki Melgar [facility] 2023-04-08 19:32:52 Formatting of this n ote might be different from the original. Pt dc'd home ambulatory with follow up instructions. Pt v/u of dc instructions. Lianet Cabrera RN [facility] 2023-04-08 16:32:31 Formatting of this n ote might be different from the original. Right leg pain for a "few weeks". Sometimes the leg gets numb. Has appt on for symptoms. Rachel Sue RN [facility] 2023-03-14 17:01:16 Formatting of this n ote might be different from the original. Pt discharged home. Given all education and information regarding s/s of worsening condition. Gave info regarding result follow up on my chart and importance of pcp follow up. Pt verbalized understanding. Alert and ambulatory to lobby. Awaiting ride. [facility] 2023-03-14 16:54:36 Formatting of this n ote might be different from the original. Patient to ed via pov. Alert and ambulatory. Vss. C/o runny nose and "feeling feverish" onset yesterday. Denies vomiting. Jacqui Campbell RN [facility] 2023-03-14 16:53:00 Formatting of this n ote is different from the original. [facility] Emergency Department Note Patient Name: Red Slater Date of : 1980 43 year old female Treatment Room: [facility] ST[facility] Primary Care Physician: Randy Chauhan Patient Escorted by: Self [9] Mode of Arrival: Personal means [1] EMS Treatment Prior to ED Arrival: Travel and Exposure Screening: Symptoms Does patient have any of these symptoms?: (not recorded) Exposure Screening Has patient had contact with someone with a communicable disease in the last month?: (not recorded) Diseases exposed to:: (not recorded) Is Patient ?: (not recorded) Exposure Date: (not recorded) Chief Complaint: Chief Complaint Patient presents with RUNNY NOSE Fever History of Present Illness: The patient presents from home for evaluation for cough and a runny nose that started today. No fevers. No medications for symptoms. No sick contacts. She does not smoke. No history of asthma or COPD. No ear pain or sore throat. Here for evaluation. Past Medical History/Immunizations: Past Medical History: Diagnosis Date Abnormal Pap smear 2002 unknown result Abnormal uterine bleeding Blood transfusion, without reported diagnosis 1985 during surgery HTN (hypertension) PID (pelvic inflammatory disease) Sneddon-Gonzalez disease Tetanus received in last 5 years: Unknown Childhood immunizations: Up-to-date Allergies: No Known Allergies Past Social History: Tobacco Use Former Passive Exposure: Past Smokeless Tobacco: Former user of smokeless tobacco; Quit 12/27/2011. Alcohol Use Not Currently. Drug Use Not Currently. Comments: hx of marijuana and cocaine abuse-clean x 3 years Sexual Activity Sexually active; Partners: Male; Control/Protection: None. Comments: last had sex in 2010 Past Surgical History: Past Surgical History: Procedure Laterality Date SECTION N/A 03/27/2021 Surgeon: Herminio Isaac MD; Location: Labor and Delivery OR Location-[facility] DRAINAGE LYMPH NODE,SIMPLE 1985 TUBAL LIGATION N/A [...] 97 % Measured on Room air Physical Exam Vitals and nursing note reviewed. Constitutional: Appearance: Normal [...] and oriented to person, place, and time. Radiology: No orders to display Lab Results: Lab Results - No data to display EKG: If EKG completed, see Procedure Note. Orders and Treatments: Orders Placed This Encounter Procedures COVID-19 (ID NOW TESTING) No orders of the defined types were placed in this encounter. First Provider Eval: ED Events Date/Time Event User Comments 03/14/23 165 Medical Screening Begins KASSY GUTIERREZ DO -- 03/14/231652 First Provider Evaluation KASSY GUTIERREZ DO -- No notes of EC Admission Criteria type on file. ED COURSE Diagnosis/Impression as of 03/14/23 1702 Upper respiratory tract infection, unspecified type Procedures: Procedures MDM: Medical Decision Making The patient presents from home for evaluation for cough and a runny nose that started today. No medications for symptoms. No sick contacts. No fevers. She does not smoke. No history of asthma. No flu or COVID vaccines. Vital signs are stable here in the ER. The patient is obese. Her lungs are clear bilaterally. Her tympanic membranes are pearly ngo. No concern for bacterial infection. We will screen the patient for COVID. Recommend she is [id number] cough and cold medications as needed for her symptoms. She remained stable here in the ER and is okay for discharge home with PCP follow-up. She can follow-up with the results of the COVID test on the Diffon britt. Problems Addressed: Upper respiratory tract infection, unspecified type: acute illness or injury Amount and/or Complexity of Data Reviewed Labs: ordered. Risk OTC drugs. Flowsheet Documentation: Scoring Tools: No data recorded Disposition/Condition: ED Disposition ED Disposition Disch - Home Condition Stable Comment -- Discharge Medications: Patient's Medications START taking these medications No [...] taking these medications No medications on file Follow-up: Electronically signed by: Kassy Gutierrez DO 03/14/231701 [facility] 2023-03-14 08:28:10 Formatting of this n ote might be different from the original. I called pt to ask about the pantoprazole suspension ordered. No answer, I left VM with my call back number. [facility] 2023-03-13 18:04:20 Formatting of this n ote might be different from the original. Red Slater is a 43 year old female, [facility] calling regarding rx for pantoprazole. Has a quantity of 1 listed. Please send updated rx. [facility] [address] [place] [id number] T Crystal Mujica [facility] 2023-03-13 11:00:00 Addended by: BOAZ DELGADO on: 03/13/2023 04:23 PM Modules accepted: Level of Service [facility] 2023-03-11 20:58:50 Formatting of this n ote might be different from the original. Pt given printed and verbal discharge instructions regarding generalized abdominal pain, nausea and vomiting, weakness, dysuria, encouraged hydration, 2 Prescriptions sent. Pt verbalized understanding of instructions, pt awake alert oriented, resp reg unlabored, skin w/d, color appropriate for race, moves all ext well,pt encouraged to follow up with pcp and GI. Advised to seek medical attention for new/prolonged/worsening of symptoms, Symptoms improved. No adverse reaction to meds given in ER noted upon discharge PIV d'cd, dressing to site, catheter in tact. Awake, alert oriented, resp reg unlabored, skin w/d, pt leaving amb with steady gait, in no apparent distress, Mary Zazueta RN [facility] 2023-03-11 17:40:35 Formatting of this n ote might be different from the original. Patient to ED for abdominal pain x 2 weeks. Concerned because she can't eat and lost her prescriptions for UTI she has. Lea Johnson RN [facility] 2023-02-26 19:15:50 Summary: RN DC note Patient discharged patient informed [...] assistance. Patient being wheeled off unit by [facility]. Angela Omalley RN [facility] 2023-02-26 16:23:29 Formatting of this n ote might be different from the original. Problem: Discharge Planning Goal: Adequate for discharge 02/26/20231622 by Angela Omalley RN Outcome: Adequate for discharge 02/26/2023 1446 by Angela Omalley RN Outcome: Progressing as expected Goal: Adequate to move to next level of care 02/26/20231622 by Angela Omalley RN Outcome: Adequate for discharge 02/26/2023 1446 by Angela Omalley RN Outcome: Progressing as expected Goal: Knowledge of medication management 02/26/20231622 by Angela Omalley RN Outcome: Adequate for discharge 02/26/2023 1446 by Angela Omalley RN Outcome: Progressing as expected Problem: Venous Thromboembolism, (actual or risk of) Goal: Absence of venous thromboembolism (Risk) 02/26/20231622 by Angela Omalley RN Outcome: Adequate for discharge 02/26/2023 1446 by Angela Omalley RN Outcome: Progressing as expected Goal: Prevent further complications associated with VTE diagnosis (Actual) 02/26/20231622 by Angela Omalley RN Outcome: Adequate for discharge 02/26/2023 1446 by Angela Omalley RN Outcome: Progressing as expected Problem: Falls, Risk of Goal: Absence of falls 02/26/20231622 by Angela Omalley RN Outcome: Adequate for discharge 02/26/2023 1446 by Angela Omalley RN Outcome: Progressing as expected Problem: Discharge Planning Goal: Adequate for discharge 02/26/20231622 by Angela Omalley RN Outcome: Adequate for discharge 02/26/2023 144 by Angela Omalley RN Outcome: Progressing as expected Goal: Effective communication 02/26/20231622 by Angela Omalley RN Outcome: Adequate for discharge 02/26/2023 1446 by Angela Omalley RN Outcome: Progressing as expected Problem: Skin integrity Impaired (Risk or Actual) Goal: Prevention of new skin breakdown 02/26/2023 1623 by Angela Omalley RN Outcome: Adequate for discharge 02/26/2023 1446 by Angela Omalley RN Outcome: Progressing as expected T [facility] 2023-02-26 14:46:53 Formatting of this n ote might be different from the original. Problem: Discharge Planning Goal: Adequate for discharge Outcome: Progressing as expected Goal: Adequate to move to next level of care Outcome: Progressing as expected Goal: Knowledge of medication management Outcome: Progressing as expected Problem: Venous Thromboembolism, (actual or risk of) Goal: Absence of venous thromboembolism (Risk) Outcome: Progressing as expected Goal: Prevent further complications associated with VTE diagnosis (Actual) Outcome: Progressing as expected Problem: Falls, Risk of Goal: Absence of falls Outcome: Progressing as expected Problem: Discharge Planning Goal: Adequate for discharge Outcome: Progressing as expected Goal: Effective communication Outcome: Progressing as expected Problem: Skin integrity Impaired (Risk or Actual) Goal: Prevention of new skin breakdown Outcome: Progressing as expected [facility] 2023-02-26 01:37:41 Formatting of this n ote might be different from the original. Problem: Discharge Planning Goal: Adequate for discharge Outcome: Progressing as expected Goal: Adequate to move to next level of care Outcome: Progressing as expected Goal: Knowledge of medication management Outcome: Progressing as expected Problem: Venous Thromboembolism, (actual or risk of) Goal: Absence of venous thromboembolism (Risk) Outcome: Progressing as expected Goal: Prevent further complications associated with VTE diagnosis (Actual) Outcome: Progressing as expected Problem: Falls, Risk of Goal: Absence of falls Outcome: Progressing as expected Problem: Discharge Planning Goal: Adequate for discharge Outcome: Progressing as expected Goal: Effective communication Outcome: Progressing as expected Problem: Skin integrity Impaired (Risk or Actual) Goal: Prevention of new skin breakdown Outcome: Progressing as expected [facility] Ariella Hope RN [facility] 2023-02-25 18:58:38 Formatting of this n ote might be different from the original. Nurse Report Report given to Ariella MCKAY, Chief complaint, assessment findings, infusion verify and orders reviewed. Maria C Tejeda RN Maria C Tejeda RN [facility] 2023-02-25 17:15:00 Formatting of this n ote might be different from the original. Ambulated to bathroom without distress, pt current on menses [facility] 2023-02-25 15:54:00 Formatting of this n ote might be different from the original. Return to room on cardiac nurse practitioner with RN, pt with no neuro deficits, saldana w from, speech clear T [facility] 2023-02-25 15:35:00 Formatting of this n ote might be different from the original. To CT on cardiac nurse practitioner RN with T [facility] 2023-02-25 15:15:00 Formatting of this n ote might be different from the original. After Dr leaving room pt moved her leg stated she has had issues for a couple months with a heavy leg, states basically she just lays in bed all day. [facility] 2023-02-25 15:09:00 Formatting of this n ote might be different from the original. While Dr. Meyers in room assessing pt stating she could not move her left leg, decided to call code stroke, T [facility] 2023-02-25 14:40:51 Formatting of this n ote might be different from the original. Pt was making lunch approx 1400 when she started to feel dizzy, diaphoretic with chest pressure. [place] like she was going to pass out and started hyperventilating. [place] like her left side was tingly. Has GI appt on . States she hasn't been able to eat right for a month and it causes her stomach to hurt. Rachel Sue RN [facility] - Health 2023-02-25 14:31:00 Formatting of this n ote is different from the original. [facility] Emergency Department Note Patient Name: Red Slater Date of : 1980 43 year old female Treatment Room: LA5/LA5 Primary Care Physician: Randy Chauhan Patient Escorted by: Self [9] Mode of Arrival: EMS - [place] [47] EMS Treatment Prior to ED Arrival: Travel and Exposure Screening: Symptoms Does patient have any of these symptoms?: (not recorded) Exposure Screening Has patient had contact with someone with a communicable disease in the last month?: (not recorded) Diseases exposed to:: (not recorded) Is Patient ?: (not recorded) Exposure Date: (not recorded) Chief Complaint: Chief Complaint Patient presents with Chest Pain Dizziness History of Present Illness: Pt presents for chest pain, dizziness that began this afternoon. PT states she felt chest pain and lightheadedness. Pt then had entire L sided numbness. Pt states she cant move her LLE. Pt states she has been under more stress. Past Medical History/Immunizations: Past Medical History: Diagnosis Date Abnormal Pap smear 2002 unknown result Abnormal uterine bleeding Blood transfusion, without reported diagnosis 1985 during surgery HTN (hypertension) PID (pelvic inflammatory disease) Sneddon-Gonzalez disease Tetanus received in last 5 years: Unknown Childhood immunizations: Up-to-date Allergies: No Known Allergies Past Social History: Tobacco Use Former Smokeless Tobacco: Former user of smokeless tobacco; Quit 12/27/2011. Alcohol Use Yes. Drug Use No. Comments: hx of marijuana and cocaine abuse-clean x 3 years Sexual Activity Sexually active; Partners: Male; Control/Protection: None. Comments: last had sex in 2010 Past Surgical History: Past Surgical History: Procedure Laterality Date SECTION N/A [...] 97 % Measured on Room air Physical Exam Vitals and nursing note reviewed. Constitutional: Appearance: Normal appearance. HENT: Head: Normocephalic. Mouth/Throat: Comments: No facial asymmetry Eyes: Extraocular Movements: Extraocular movements intact. Cardiovascular: Rate [...] Content: Thought content normal. Judgment: Judgment normal. Radiology: CT ACUTE STROKE ANGIOGRAM HEAD Final Result EXAM: CT STROKE ANGIOGRAM NECK, EXAM: CT STROKE ANGIOGRAM HEAD HISTORY: Neuro deficit, acute, stroke suspected Rad: please obtain POCT creatinine prior to CTA head/neck. History obtained from [facility]: "Pt was making lunch approx 1400 when she started to feel dizzy, diaphoretic with chest pressure. [place] like she was going to pass out [...] The superior cerebellar arteries are patent. Both BRID[employer]SULTANT are widely patent. No sizable P-comm is [...] prior to CTA head/neck. History obtained from [facility]: "Pt was making lunch approx 1400 when she started to feel dizzy, diaphoretic with chest pressure. [place] like she was going to pass out [...] The superior cerebellar arteries are patent. Both BRID[employer]SULTANT are widely patent. No sizable P-comm is visualized. The intracranial ICAs are patent. An anterior communicating artery is present. The BETY and MCA are widely patent. No high-grade stenosis or aneurysm is visualized. The dural venous sinuses are well opacified. IMPRESSION Unremarkable CT angiogram of the head and neck. Preliminary Report Dictated by Resident: Peter Young I, Umar S Dae, MD., have reviewed this study and agree [...] mass effect. No parenchymal attenuation abnormality. The ngo-white matter differentiation is preserved. The ASPECTS score is estimated to be 10. The mastoid air cells and paranasal air sinuses are clear. The calvarium and central skull base are unremarkable. IMPRESSION No acute intracranial hemorrhage or mass effect. Preliminary Report Dictated by Resident: Michael Frey MD., have reviewed this study and agree with the above report. Lab Results: Lab Results BASIC METABOLIC PANEL (NA, K, CL, [...] GLUCOSE(AGE >30DAYS) URINALYSIS TROPONIN I LIPID PANEL (87228)(TOTAL CHOLESTEROL, TRIGLYCERIDES, HDL) THYROID STIMULATING HORMONE EKG: Sinus tachycardia, no stemi, qtc 484 HR 102 Orders and Treatments: Orders Placed This Encounter Procedures CT ACUTE STROKE [...] aspirin chewable tablet 81 mg First Provider Eval: ED Events Date/Time Event User Comments 02/25/23 1507 Medical Screening Begins BAIRON MEYERS MD -- 02/25/23 1507 First Provider Evaluation BAIRON MEYERS MD -- No notes of EC Admission Criteria type on file. ED COURSE Diagnosis/Impression as of 02/25/23 1805 Weakness Stroke activated. 18:00 PT having normal ROM, and states paresthesia has been intermittent for two weeks. PT to be admitted for obs to hospitalist, Dr. Patton. Procedures: Procedures MDM: Medical Decision Making 43 yo F presents with chest pain, dizziness and L sided paresthesia Problems Addressed: Weakness: acute illness or injury Details: Pt improved s/p treatment. ct head noncontrast and head/neck angiogram unremarkable Amount and/or Complexity of Data Reviewed Labs: ordered. Details: troponin wnl Radiology: ordered. Details: ct head/neck angiogram unremarkable Discussion of management or test interpretation with external provider(s): Dr. Patton to admit pt for observation Risk Decision regarding hospitalization. Risk Details: Pt in agreement with admission. Flowsheet Documentation: Scoring Tools: No data recorded Disposition/Condition: ED Disposition ED Disposition Admit - Observation Condition -- Comment Is (or was) this a planned re-admission?: No Treatment Team: [facility] [[id number]] Is this patient COVID positive or a patient under investigation (PUI)?: No Discharge Medications: Patient's Medications START taking these medications No [...] taking these medications No medications on file Follow-up: Electronically signed by: Bairon Meyers MD 02/25/23 9947 T [facility]
[2024-04-12] MEDS ORDERED: NA CHLORIDE 0.9% 1,000 ML ONE (20:30)
[2024-04-12] MEDS ORDERED: ONDANSETRON 4 MG/2 ML VIAL ONE (20:30)
[2024-04-12] MEDS ORDERED: KETOROLAC 30 MG/ML INJ ONE (20:30)
[2024-04-12] MEDS ORDERED: FAMOTIDINE 20 MG/2 ML VIAL IV ONE (20:30)
[2024-04-12 20:36] LABS: Absolute Basophils 0.1 K/uL (0-0.5); Absolute Eosinophils 0.1 K/uL (0-0.5); Absolute Lymphocytes (CBC) 2.9 K/uL (0.7-4.9); Absolute Monocytes 0.7 K/uL (0.1-1.3); Absolute Neutrophil 7.8 K/uL (1.8-8.0); Basophils % 0.5 % (0-1.3); Eosinophils % 1.2 % (0-4.4); Hemoglobin 13.3 g/dL (12.0-15.0); Lymphocytes % 24.9 % (15.3-44.8); MCH 27.7 pg (27.0-35.0); MCHC 33.1 g/dL (32.0-36.0); MCV 83.6 fL (80-100); MPV 7.6 fL (7.6-11.3); Monocytes % 5.8 % (3.3-12.3); Neutrophils % 67.6 % (41.7-73.7); Platelets 313 thou/uL (152-406); RBC Red Blood Cell Count 4.79 M/uL (3.86-4.86)
[2024-04-12 20:38] LABS: Urine Bacteria None Seen /HPF (<20); Urine Bilirubin NEGATIVE (Negative); Urine Blood Negative (Negative); Urine Clarity Extremely Turbid (Clear); Urine Color Yellow (Yellow); Urine Crystals Unidentified Few /HPF (None Seen); Urine Culture Reflex Order REFLEXED; Urine Glucose NEGATIVE (Negative); Urine Ketones NEGATIVE (Negative); Urine Microscopic Reflex YN ORDER UMIC; Urine Mucus 3+ /HPF (None Seen); Urine Nitrite NEGATIVE (Negative); Urine Protein TRACE (Negative); Urine Urobilinogen 2+ (Normal); Urine WBC 20-50 /HPF (<5)
[2024-04-12 20:55] LABS: Albumin/Globulin Ratio 0.5 (1.1-1.8); Anion Gap 6.7 mEq/L (5.0-15.0); Bilirubin Total 0.3 mg/dL (0.2-1.0); Globulin 5.7 g/dL (2.3-3.5); Potassium 3.7 mEq/L (3.5-5.1); Protein, Total 8.7 g/dL (6.4-8.2)
--- NOTE | 2024-04-13 00:12 | ER ---
Nurse's Notes [facility] Name: Red Slater Age: 44 yrs Sex: Female : 1980 Arrival Date: 04/12/2024 Time: 19:03 Bed 20 Private MD: Diagnosis: Other ovarian cysts;UTI/ Urinary tract infection, site not specified Presentation: 04/12 19:17 Chief complaint: Patient states: Pain to pelvic area and vagina onset 1 week ago. Pt cm10 also reports nausea. Coronavirus screen: Client denies travel out of the [place] in the last 14 days. Ebola Screen: Patient denies travel to an Ebola-affected area in the 21 days before illness onset. No symptoms or risks identified at this time. Initial Sepsis Screen: Does the patient meet any 2 criteria? HR > 90 bpm. Does the patient have a suspected source of infection? No. Patient's initial sepsis screen is negative. Risk Assessment: Do you want to hurt yourself or someone else? Patient reports no desire to harm self or others. Onset of symptoms was April 12, 2024. 19:17 Method Of Arrival: Ambulatory cm10 19:17 Acuity: PETE 3 cm10 Triage Assessment: 19:18 General: Appears in no apparent distress. uncomfortable, Behavior is calm, cooperative. cm10 Neuro: No deficits noted. Level of Consciousness is awake, alert, obeys commands, Oriented to person, place, time, situation, Appropriate for age. Respiratory: No deficits noted. Airway is patent Respiratory effort is even, unlabored, Respiratory pattern is regular, symmetrical. 21:24 Pain: Complains of pain in abdominal Pain currently is 8 out of 10 on a pain scale. GI: kj2 Reports lower abdominal pain, upper abdominal pain. : Reports pain when urinating. Historical: - Allergies: 19:18 No Known Allergies; cm10 - Home Meds: 04/13 00:34 pantoprazole 20 mg Oral tablet 1 tab Every other day [Active]; kj2 - PMHx: 04/12 19:18 Hypertensive disorder; Sneddon-Wilkenson; cm10 - PSHx: 19:18 section; cm10 - Immunization history:: Adult Immunizations up to date. - Infectious Disease History:: Denies. - Social history:: Smoking status: Patient denies any tobacco usage or history of. Screenin:22 [facility] ED Fall Risk Assessment (Adult) History of falling in the last 3 months, kj2 including since admission No falls in past 3 months (0 pts) Confusion or Disorientation No (0 pts) Intoxicated or Sedated No (0 pts) Impaired Gait No (0 pts) Mobility Assist Device Used No (0 pt) Altered Elimination No (0 pt) Score/Fall Risk Level 0 - 2 = Low Risk Maintained a safe environment, Educated pt \T\ family on fall prevention, incl call for assistance when getting out of bed, Hourly rounding (assess needs \T\ fall precautionary measures) done. Abuse screen: Denies threats or abuse. Denies injuries from another. Nutritional screening: No deficits noted. Tuberculosis screening: No symptoms or risk factors identified. Assessment: 20:15 General: Appears in no apparent distress. uncomfortable, Behavior is cooperative. Pain: kj2 Complains of pain in abdomen Pain currently is 8 out of 10 on a pain scale. Neuro: Level of Consciousness is awake, alert, Oriented to person, place, time. Cardiovascular: Patient's skin is warm and dry. Respiratory: Airway is patent Respiratory effort is even, unlabored. GI: Abdomen is non-distended. : Reports pain with urination. 22:22 Reassessment: Patient appears in no apparent distress at this time. Patient and/or kj2 family updated on plan of care and expected duration. Pain level reassessed. Patient is alert, oriented x 3, equal unlabored respirations, skin warm/dry/pink. 23:42 Reassessment: Patient appears in no apparent distress at this time. Patient and/or kj2 family updated on plan of care and expected duration. Pain level reassessed. Patient is alert, oriented x 3, equal unlabored respirations, skin warm/dry/pink. 04/13 00:33 Reassessment: Patient appears in no apparent distress at this time. Patient and/or kj2 family updated on plan of care and expected duration. Pain level reassessed. Patient is alert, oriented x 3, equal unlabored respirations, skin warm/dry/pink. Vital Signs: 04/12 19:17 BP 152 / 108; Pulse 122; Resp 19; Temp 97.1; Pulse Ox 97% on R/A; Weight 163.29 kg; cm10 Height 5 ft. 5 in. ; Pain 10/10; 20:30 BP 156 / 78; Pulse 100; Resp 18; Pulse Ox 97% on R/A; kj2 22:28 BP 158 / 74; Pulse 123; Resp 18; Pulse Ox 100% ; kj2 23:46 BP 116 / 77; Pulse 80; Resp 18; Pulse Ox 100% on R/A; kj2 04/13 00:33 BP 129 / 73; Pulse 80; Resp 18; Temp 98.6; Pulse Ox 100% on R/A; kj2 04/12 19:17 Body Mass Index 59.91 (163.29 kg, 165.1 cm) cm10 04/12 19:17 Pain Scale: Adult cm10 ED Course: 04/12 19:06 Patient arrived in ED. jj6 19:07 [facility] kb 19:07 Janessa Smith MD is Attending Physician. kb 19:18 Triage completed. cm10 19:19 Arm band placed on Patient placed in waiting room. cm10 19:57 Cheryl Thorne, RN is Primary Nurse. kj2 20:15 No provider procedures requiring assistance completed. Inserted saline lock: 20 gauge kj2 in right antecubital area, using aseptic technique. Blood collected. Flushed with 10 mL NS. 21:24 Patient has correct armband on for positive identification. Bed in low position. Call kj2 light in reach. Side rails up X 1. Provided Education on: call light, fall precautions. 22:24 Inserted saline lock: 20 gauge in left antecubital area, using aseptic technique. oe Flushed with 10 mL NS. 22:51 CT Abd/Pelvis - IV Contrast Only In Process Unspecified. EDMS 04/13 00:34 IV discontinued, intact, bleeding controlled, No redness/swelling at site. Pressure kj2 dressing applied. Administered Medications: 04/12 20:30 Drug: TORadol - Ketorolac IVP 15 mg IVP once Route: IVP; Site: right antecubital; kj2 20:32 Drug: Ondansetron IVP 4 mg IVP once; over 2 minutes Route: IVP; Site: right antecubital;kj2 20:35 Drug: NS 0.9% IV 1000 ml IV at 1 bolus Per protocol; 1000 mL bolus Route: IV; Rate: 1 kj2 bolus; Site: right antecubital; 20:40 Drug: Famotidine IVP 20 mg IVP once; dilute with 10 mL 0.9% NaCl; give over 2 minutes kj2 Route: IVP; Site: right antecubital; 22:30 Follow up: Response: No adverse reaction kj2 04/13 00:32 Drug: Ketorolac IVP 15 mg IVP once Route: IVP; Site: left antecubital; kj2 00:32 Follow up: Response: Medication administered at discharge. kj2 00:32 Drug: Ondansetron IVP 4 mg IVP once; over 2 minutes Route: IVP; Site: left antecubital; kj2 00:32 Follow up: Response: Medication administered at discharge. kj2 Medication: 04/12 20:30 VIS not applicable for this client. kj2 Outcome: 04/13 00:12 Discharge ordered by . kb 00:34 Discharged to home ambulatory, kj2 00:34 Condition: stable 00:34 Discharge instructions given to patient, Instructed on discharge instructions, follow up and referral plans. medication usage, Demonstrated understanding of instructions, follow-up care, medications, Prescriptions given X 2, 00:35 Patient left the ED. kj2 Signatures: Dispatcher [employer] EDMS Belle Leahy, CHELSEA-C CORK INSULATION INSTALLER-Shahid Gardiner Jennifer jj6 Dary Castrejon, RN RN cm10 Cheryl Thorne RN RN kj2
--- NOTE | 2024-04-13 00:13 | EDPHYS ---
Physician Documentation [facility] Name: Red Slater Age: 44 yrs Sex: Female : 1980 Arrival Date: 04/12/2024 Time: 19:03 Bed 20 Private MD: ED Physician Janessa Smith HPI: 04/13 00:41 This 44 yrs old Female presents to ER via Ambulatory with complaints of Near kb Syncope, Nausea, Pain With Urination. 00:41 Pt is a 44 year old female who presents for lower abd and vaginal pain that started one kb week ago. States the pain caused nausea and lightheadedness today. Denies fever, diarrhea. No aggravating or alleviating factors. . Historical: - Allergies: 04/12 19:18 No Known Allergies; cm10 - Home Meds: 04/13 00:34 pantoprazole 20 mg Oral tablet 1 tab Every other day [Active]; kj2 - PMHx: 04/12 19:18 Hypertensive disorder; Sneddon-Wilkenson; cm10 - PSHx: 19:18 section; cm10 - Immunization history:: Adult Immunizations up to date. - Infectious Disease History:: Denies. - Social history:: Smoking status: Patient denies any tobacco usage or history of. ROS: 04/13 00:41 Constitutional: As per HPI kb Exam: 00:41 Constitutional: This is a well developed, well nourished patient who is awake, alert, kb and in no acute distress. Head/Face: Normocephalic, atraumatic. ENT: Moist Mucous membranes Cardiovascular: Regular rate Respiratory: Respirations even and unlabored. No increased work of breathing. Talking in full sentences Skin: Warm, dry with normal turgor. Normal color. MS/ Extremity: Pulses equal, no cyanosis. Neurovascular intact. Full, normal range of motion. Neuro: Awake and alert, GCS 15, oriented to person, place, time, and situation. Moves all extremities. Normal gait. 00:41 Abdomen/GI: Inspection: obese Bowel sounds: normal, Palpation: soft, in all quadrants, mild abdominal tenderness, in the right lower quadrant and left lower quadrant, 00:43 : Pelvic Exam: External exam: is normal, kb Vital Signs: 04/12 19:17 BP 152 / 108; Pulse 122; Resp 19; Temp 97.1; Pulse Ox 97% on R/A; Weight 163.29 kg; cm10 Height 5 ft. 5 in. ; Pain 10/10; 20:30 BP 156 / 78; Pulse 100; Resp 18; Pulse Ox 97% on R/A; kj2 22:28 BP 158 / 74; Pulse 123; Resp 18; Pulse Ox 100% ; kj2 23:46 BP 116 / 77; Pulse 80; Resp 18; Pulse Ox 100% on R/A; kj2 04/13 00:33 BP 129 / 73; Pulse 80; Resp 18; Temp 98.6; Pulse Ox 100% on R/A; kj2 04/12 19:17 Body Mass Index 59.91 (163.29 kg, 165.1 cm) cm10 04/12 19:17 Pain Scale: Adult cm10 MDM: 04/12 19:07 Patient medically screened. kb 04/13 00:42 Differential diagnosis: appendicitis, non-specific abd pain, urinary tract infection, kb ovarian cyst, cyst, abscess. Data reviewed: vital signs, nurses notes. Counseling: I had a detailed discussion with the patient and/or guardian regarding the historical points, exam findings, and any diagnostic results supporting the discharge/admit diagnosis, lab results, radiology results, the need for outpatient follow up, an OB/Gyne specialist, to return to the emergency department if symptoms worsen or persist or if there are any questions or concerns that arise at home. 04/12 19:20 Order name: CBC with Diff; Complete Time: 20:49 kb 04/12 19:20 Order name: CMP; Complete Time: 20:59 kb 04/12 19:20 Order name: Lipase; Complete Time: 20:59 kb 04/12 19:20 Order name: Test, Urine; Complete Time: 20:40 kb 04/12 19:20 Order name: Urinalysis w/ reflexes; Complete Time: 20:40 kb 04/12 20:41 Order name: Urine Culture EDMS 04/12 19:20 Order name: CT Abd/Pelvis - IV Contrast Only kb 04/12 19:20 Order name: IV Saline Lock; Complete Time: 20:15 kb 04/12 19:20 Order name: Labs collected and sent; Complete Time: 20:15 kb 04/12 22:25 Order name: Vital Signs; Complete Time: 22:29 kb Administered Medications: 04/12 20:30 Drug: TORadol - Ketorolac IVP 15 mg IVP once Route: IVP; Site: right antecubital; kj2 20:32 Drug: Ondansetron IVP 4 mg IVP once; over 2 minutes Route: IVP; Site: right antecubital;kj2 20:35 Drug: NS 0.9% IV 1000 ml IV at 1 bolus Per protocol; 1000 mL bolus Route: IV; Rate: 1 kj2 bolus; Site: right antecubital; 20:40 Drug: Famotidine IVP 20 mg IVP once; dilute with 10 mL 0.9% NaCl; give over 2 minutes kj2 Route: IVP; Site: right antecubital; 22:30 Follow up: Response: No adverse reaction kj2 04/13 00:32 Drug: Ketorolac IVP 15 mg IVP once Route: IVP; Site: left antecubital; kj2 00:32 Follow up: Response: Medication administered at discharge. kj2 00:32 Drug: Ondansetron IVP 4 mg IVP once; over 2 minutes Route: IVP; Site: left antecubital; kj2 00:32 Follow up: Response: Medication administered at discharge. kj2 Disposition Summary: 04/13/24 00:12 Discharge Ordered Notes: Location: Home kb Condition: Stable kb Diagnosis - Other ovarian cysts kb - UTI/ Urinary tract infection, site not specified kb Followup: kb - With: Emergency Department - When: As needed - Reason: Worsening of condition Followup: kb - With: Private Physician - When: 2 - 3 days - Reason: Recheck today's complaints, Continuance of care, Re-evaluation by your physician Discharge Instructions: - Discharge Summary Sheet kb - Urinary Tract Infection, Adult, [id number] kb - Ovarian Cyst, [id number] kb Forms: - Medication Reconciliation Form kb - Antibiotic Education kb - Prescription Opioid Use kb - Patient Portal Instructions kb - Leadership Thank You Letter kb Prescriptions: - Augmentin 875-125 mg Oral Tablet - take 1 tablet ORAL route every 12 hours for 10 days; 20 tablet; Refills: 0, kb Product Selection Permitted - Diclofenac Sodium 75 mg Oral tablet, delayed release (enteric coated) - take 1 tablet ORAL route 2 times per day As needed; 30 tablet; Refills: 0, kb Product Selection Permitted Signatures: Dispatcher [employer] EDMS Belle Leahy, LABOR SERVICE REPRESENTATIVE-C CHELSEA-Dary Paiz, RN RN cm10 Cheryl Thorne, RN RN kj2 Corrections: (The following items were deleted from the chart) 04/12 19:21 19:21 CBC+H.LAB.BRZ ordered. EDMS EDMS 19:21 19:21 COMPREHENSIVE METABOLIC PANEL+C.LAB.BRZ ordered. EDMS EDMS 19:21 19:21 LIPASE+C.LAB.BRZ ordered. EDMS EDMS 19:21 19:21 Test, Urine+UC.LAB.BRZ ordered. EDMS EDMS 19:21 19:21 Urinalysis+U.LAB.BRZ ordered. EDMS EDMS
[2024-04-13] MEDS ORDERED: ONDANSETRON 4 MG/2 ML VIAL ONE (00:23)
[2024-04-13] MEDS ORDERED: KETOROLAC 30 MG/ML INJ ONE (00:24)
[2024-04-13 01:04] VITALS: O2SAT 100
[2024-04-13 01:07] VITALS: BP 129/73; TEMP 98.6
--- NOTE | 2024-04-13 08:48 | RAD REPORT ---
EXAM: Abdomen Pelvis W Contrast CLINICAL INDICATION: 44-year-old female with abdominal pain. COMPARISON: None. EXAMINATION: CT of the abdomen and pelvis was performed following intravenous administration of contr ast. Oral contrast was not administered. Multiplanar reformatted images were provided. This exam was performed according to our departmental dose optimization program which includes use of automated exposure control, adjustment of the mA and/or kV according to patient size and/or use of iterative reconstruction technique. FINDINGS: Chest: Evaluation through the lung bases reveals no focal opacity, pleural effusion or pneumothorax. Heart size is within normal limits. No pericardial effusion. Abdomen and pelvis: Suspected diffuse hepatic steatosis. Hepatomegaly measures 19.7 cm. Exophytic 2.6 cm left renal cyst measures 10 Hounsfield units (series 202, image 98) compatible with simple renal cyst; Bosniak type I. No follow-up imaging is recommended. The liver, gallbladder, pancreas, spleen, bilateral kidneys and bilateral adrenal glands are otherwis e within normal limits. The vessels are patent and normal in caliber. No abdominopelvic lymph nodes are noted to be pathologically enlarged by CT measurement criteria. The bowel is within normal limits without abnormal bowel wall thickness or bowel dilation. No free air. No free abdominopelvic fluid collections. The appendix is within normal limits. The uter us is within normal limits. The left ovary is within normal limits. The right ovary demonstrates a circumscribed hypoattenuating cystic ty pe structure measuring 6.5 cm with Hounsfield values of approximately 13 suggesting simple ovarian cysts. Recommend follow-up pelvi c ultrasound in 3-6 months. The osseous structures are within normal limits. 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 Tr tiki anterolisthesis and pseudodisc bulge. IMPRESSION: 1. No specific acute intra-abdominal findings are noted to suggest etiology of the patient's abdomina l pain. 2. Suspected diffuse hepatic steatosis and hepatomegaly. 3. 6.5 cm benign appearing ovarian cyst. Recommend follow-up pelvic ultrasound in 3-6 months. 4. 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 Electronically signed by: Columba Shah MD 04/12/2024 11:19 PM CDT RP Due to temporary technical issues with PACS / Fluency reporting system, reports are being signed by the in-house radiologist without review as a courtesy to ensure prompt reporting. The interpreting radiologist is fully responsible for the content of the report. Transcribed Date/Time: 04/13/2024 8:47 AM
== END 2024-04-13 00:35 | disposition home or self-care (01) ==
LOC: ER 19:03
DX: N39.0 Urinary tract infection, site not specified (principal); N83.299 Other ovarian cyst, unspecified side
CPT/HCPCS: 87088; 85025; 81001; 87086; 36415; 81025; 83690; 80053; 74177; Q9967; J2405 ×2; J7030; 87077; 87186; 99284

== ENCOUNTER 2024-04-21 01:25 | Emergency (ER) | payer OTHER ==
--- OUTSIDE RECORDS SUMMARY | 2024-04-21 01:34 | XMS REPORT | Continuity of Care Document ---
Author Name Unknown Address [address] [facility] [address]. [address] [place] [address] [facility] thconnect Address [address] [facility]. [address] [place] [address] Care Team Providers [place] Library Director Name Role Phone SABINO SIMMONS Primary Care Physician EKTA Hare Attending Clinician VIOLET Lam Attending Clinician UnavailJAVI Hernandez Attending Clinician UnavailROMINA Avalos Attending Clinician Unavailable ROMINA MCDUFFIE Attending Clinician Unavailable BERTIN ANTUNEZ Attending Clinician Unavaila BERTIN Rene Attending Clinician UnavailANTOINETTE Haider Attending Clinician UnavailROSA Hayes Attending Clinician Unavailable LIANET MCKEON Attending Clinician Unavailable LIANET MCKEON Attending Clinician Unavailable SABINO SIMMONS Attending Clinician Unavailab SABINO Carreon Attending Clinician Unavailab DIANE Barry Attending Clinician Unavailable Rosa Leo Attending Clinician + [phone] KAYDEN MCDUFFIE Attending Clinician Unavailable KAYDEN MCDUFFIE Attending Clinician Unavailable Kayden Mcduffie MD Attending Clinician [phone] NADIYA BELLAMY Attending Clinician Unavailable NADIYA BELLAMY Attending Clinician Unavailable Melissa FACTORY SUPERVISOR, Nadiya Renner Attending Clinician + [phone] Iris FACTORY SUPERVISOR, Sabino Attending Clinician [phone] Doctor Unassigned, [place] Attending Clinician U jimailable LEA BARRETO Attending Clinician Unavail able Margareth LOMELI, Violet Miguel Attending Clinician [phone] LESLYE COPE Attending Clinician UnavailLESLYE Dias Attending Clinician UnavailTala Mena RN Attending Clinician Unavaila TAYLOR Ross Attending Clinician Unavailable TAYLOR MALCOLM Attending Clinician Unavailable Rod CHOCOLATIER, Nissa Spear Attending Clinician Unavail able Lacie PT, Gabrielle Attending Clinician UnavailLeslye Dias MD Attending Clinician [phone] Romina Baker LCSW Attending Clinician + [phone], [facility] Attending Clinician Unavailable MICHAEL BETANCUR Attending Clinician Unavaila dionicio Doctor Unassigned, [place] Attending Clinician [facility] Attending Clinician Unavailable Michael Betancur MD Attending Clinician + [phone] Nabila Pedro MD Attending Clinician [phone] TAYLOR BYNUM Attending Clinician Unavailab Alice Dalton MD Attending Clinician [phone] Taylor Bynum DO Attending Clinician [phone] Javi Mcpherson MD Attending Clinician [phone] ALICE PENA Attending Clinician Unavailable Tamie MCKAY, Lolita Larios Attending Clinician + [phone] Austin Salomon PA-C Attending Clinician +[phone] Eamon LOMELI, Erika Bergman Attending Clinician [phone] Antoinette Mccullough MD Attending Clinician +- [phone] Marcos Rodriguez MD Attending Clinician [phone] JANI RODRIGUEZ Attending Clinician Unavailable KATE SIERRA Attending Clinician Unavailab FARIHA Nesbitt Attending Clinician Unavail able FARIHA YOUNGBLOOD Attending Clinician Unavail able KASSY GUTIERREZ Attending Clinician Unavailab Kassy Lang DO Attending Clinician [phone] Isha Geller Attending Clinician + [phone] Boaz Delgado MD Attending Clinician +[phone] BOAZ DELGADO Attending Clinician Unavailable ZEYNEP MITCHELL Attending Clinician Unavailable Zeynep Madsen Attending Clinician +[phone] JUSTEN PATTON Attending Clinician Unavailable Bairon Meyers MD Attending Clinician +[phone] Justen Patton DO Attending Clinician [phone] DAMION HAMLIN Attending Clinician Unavailable Damion Hamlin MD Attending Clinician + [phone] ZEV FERNÁNDEZ Attending Clinician Unavailable Rasta Anne DO Attending Clinician + [phone] Panda Flanagan MD Attending Clinician [phone] PANDA FLANAGAN Attending Clinician Unavailable Only, Ang Db Test Attending Clinician UnavailAustin Echeverria PA-C Attending Clinician [phone] AUSTIN ADAMSON Attending Clinician Unavailable SAYDA ZAFAR Attending Clinician Unavailable Sayda Bello Attending Clinician +- [phone] UNKNOWN, ATTENDING Attending Clinician Unavailab Randy Orta MD Attending Clinician +[phone] BRANDON RIVERA Attending Clinician Unavailabl andrea Rivera MD, Brandon Attending Clinician +- [phone] Unknown, Attending Attending Clinician Unavailab Sherry Del Toro MD Attending Clinician +[phone] SCARLET CUELLAR Attending Clinician Unavailable SELINA BUCKLEY Attending Clinician Unavailable CASSIUS ZULUAGA Attending Clinician Unavailable CAROLYN HERRERA Attending Clinician Unavailab bettye Vasquez [facility] Dermatology Nurse Attending Clinician Unavailable Carolyn Herrera MD November Attending Clinician + [phone] Elvi Maya MD Attending Clinician +[phone] ELVI MAYA Attending Clinician Unavailable Radiology Attending Clinician Unavailable RADIOLOGY Attending Clinician Unavailable Lauri Natarajan S Attending Clinician [phone] LAURI CURRY Attending Clinician Unavailable SIENNA RUFF Attending Clinician Unavailable Selina Arechiga Attending Clinician [phone] Visit/Fp, [facility] Nurse Attending Clinician Un available ABRAM LYNNE Attending Clinician Unavaila dionicio Lynne MD, Abram Brooks Attending Clinician + [phone] Herminio Isaac MD Attending Clinician [phone] Cristina Parra PA-C Attending Clinician + [phone] Nayeli MCKAY, Kala Renner Attending Clinician Clair vailable CRISTINA PARRA Attending Clinician Unavailable DASH MALCOLM Attending Clinician Unavailable Dash Dow S Attending Clinician [phone] Ondina Palacio MD Attending Clinician [phone] ONDINA PALACIO Attending Clinician Unavailable Lab, [facility] Attending Clinician Unavailable Mili Watt Attending Clinician [phone] MILI VILLEGAS Attending Clinician Unavailab bettye TRAN, Franny Attending Clinician [phone] Ultrasound, [facility] Attending Clinician Unavaila Darline Stone Attending Clinician Unavailabl e 1, [facility] Usg Room Attending Clinician Unavaila dionicio Mcneil MD, Conrado Larios Attending Clinician +- [phone] [facility] Unavailable Jared Bay MD Attending Clinician [phone] JARED BAY Attending Clinician Unavailable Maximus Villavicencio DO Attending Clinician [phone] Fellow, [facility] Attending Clinician Un available Nette Cadet MD Attending Clinician +[phone] NETTE CADET Attending Clinician Unavailable NETTE CADET Attending Clinician Unavailable Juanjose Ross DO Attending Clinician [phone] Sienna LOMELI, Matthew Attending Clinician [phone] MATTHEW EL Attending Clinician Unavailable Jean-Paul MCKAY, Glenna Attending Clinician UnavailTamika Ch MD, Gwendolyn Attending Clinician [phone] EKTA ESPINOZA Admitting Clinician UnaONDINA Lombardo Admitting Clinician Unavailable KAYDEN MCDUFFIE Admitting Clinician Unavailable NADIYA BELLAMY Admitting Clinician Unavailable TAYLOR MALCOLM Admitting Clinician Unavailable MICHAEL BETANCUR Admitting Clinician Unavaila TAYLOR House Admitting Clinician Unavailab ALICE Dalton Admitting Clinician Unavailable ANTOINETTE MCCULLOUGH Admitting Clinician UnavailAntoinette Lopez MD Admitting Clinician [phone] KATE SIERRA Admitting Clinician Unavailab JUSTEN Perez Admitting Clinician Unavailable Justen Patton DO Admitting Clinician DAMION HAMLIN Admitting Clinician Unavailable LAURI CURRY Admitting Clinician Unavailable ABRAM LYNNE Admitting Clinician Unavailrenetta Lynne MD, Abram Brooks Admitting Clinician Ondina Palacio MD Admitting Clinician [phone] Payers Payer Name Policy Type Policy Number Effective Date Expirati on Date Source [facility] [id number] 2022 00:00:00 Problems Condition Name Condition Details Condition Category Status Onset Date Resolution Date Last Treatment Date Treating Clinician Comments Source 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 Disease Active 2022-07 0 00:00: 00 [facility] Epigastric pain Epigastric pain Disease Active 04-22 00:00: 00 [facility] Loss of weight Loss of weight Disease Active 03-13 00:00: 00 [facility] Nausea Nausea Disease Active 03-13 00:00: 00 [facility] Abdominal pain, generalize d Abdominal pain, generalize d Disease Active 8-17 00:00: 00 [facility] Atypical chest pain Atypical chest pain Disease Active 8 00:00: 00 [facility] Essential hypertensi on Essential hypertensi on Disease Active 8- 00:00: 00 [facility] Dyslipidem ia Dyslipidem ia Disease Active 8 00:00: 00 [facility] Elevated LFTs Elevated LFTs Disease Active 8 00:00: 00 [facility] Weakness Weakness Disease Active 8 00:00: 00 [facility] 38 weeks gestation of 38 weeks gestation of Disease Active 03-27 00:00: 00 [facility] Multiparit y Multiparit y Disease Active 03-27 00:00: 00 [facility] 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 03-27 00:00: 00 [facility] Advanced maternal age in multigravi da, third trimester Advanced maternal age in multigravi da, third trimester Disease Active 03-27 00:00: 00 [facility] Abnormal glucose tolerance test (GTT) during , antepartum Abnormal glucose tolerance test (GTT) during , antepartum Disease Active 03-27 00:00: 00 [facility] Abnormal glucose tolerance test (GTT) during , antepartum Abnormal glucose tolerance test (GTT) during , antepartum Disease Active 03-27 00:00: 00 [facility] Urinary tract infection in mother during third trimester of Urinary tract infection in mother during third trimester of Disease Active 02-14 00:00: 00 [facility] Preexistin g hypertensi on complicati ng , antepartum Preexistin g hypertensi on complicati ng , antepartum Disease Active 02-14 00:00: 00 [facility] Rash Rash Disease Active 10-19 00:00: 00 [facility] Bullous disorder Bullous disorder Disease Active 10-19 00:00: 00 [facility] Irregular menstrual cycle Irregular menstrual cycle Disease Active 09-29 00:00: 00 [facility] Vaginitis and vulvovagin itis Vaginitis and vulvovagin itis Disease Active 09-29 00:00: 00 Overview: Formattin g of this note might be different from the original. 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 ASSERTION [facility] Alcoholic beverage intake 2024-04-19 00:00:00 2024-04-19 00:00:00 Ex-drinker (finding) [facility] Alcohol intake 2023-11-26 00:00:00 2023-11-26 00:00:00 Ex-drinker (finding) [facility] History of Social function 2023-11-26 00:00:00 2023-11-26 00:00:00 [facility] Tobacco use and exposure 2023-02-25 00:00:00 2023-02-25 00:00:[address]eless tobacco user [facility] Exposure to SARS-CoV-2 (event) 2022-05-11 00:00:00 2022-05-21 13:28:[address] [facility] History of tobacco use 2011-12-27 00:00:[address]okeless tobacco [facility] Sex assigned at 1980 00:00:00 1980 00:00:00 [facility] Smoking Status Start Date Stop Date Source Ex-smoker 2023-02-25 00:00:00 2023-02-25 00:00:00 [facility] Medications Ordered Medication Name Filled Medication Name Start Date Stop Date Current Medication? Ordering Clinician Indication Dosage Frequency Signature (SIG) Comments Components Source sumatriptan 100 mg tablet 04-19 00:00: 00 Yes [id number] 100mg Take 1 tablet by mouth as needed for Migraine (Max of 2 tablets/da y.). [facility] topiramate 25 mg tablet 04-19 00:00: 00 05-17 04:59 :00 Yes [id number] Take 1 tablet by mouth 2 (two) times daily for 7 days, THEN 2 tablets 2 (two) times daily for 21 days. [facility] acetaminoph en (TYLENOL) tablet 1,000 mg 04-16 05:45: 00 04-16 05:47 :00 No 1000mg 1,000 mg, Oral, ONCE, 1 dose, On Fri04/16/24 at 0045, MARGARITA [facility] diphenhydrA MINE (BENADRYL) injection 25 mg 04-16 01:15: 00 04-16 02:09 :00 No 25mg 25 mg, Slow IV Push, ONCE, 1 dose, On Fri04/15/24 at 2015, STAT [facility] famotidine (PEPCID (PF)) injection 20 mg 04-16 01:15: 00 04-16 02:09 :00 No 20mg 20 mg, Slow IV Push, ONCE, 1 dose, On Fri04/15/24 at 2015, [facility] ondansetron (ZOFRAN (PF)) injection 4 mg 04-16 01:15: 00 04-16 02:08 :00 No 4mg 4 mg, Slow IV Push, ONCE, 1 dose, On Fri04/15/24 at 2014, [facility] acetaminoph en (TYLENOL) tablet 650 mg 04-16 01:15: 00 04-16 02:12 :00 No 650mg 650 mg, Oral, ONCE, 1 dose, On Fri04/15/24 at 2014, [facility] haloperidol lactate (HALDOL) injection 1.25 mg 04-16 01:15: 00 04-16 02:10 :00 No 1.25mg 1.25 mg, Intravenou s, ONCE, 1 dose, On Fri04/15/24 at 2014, Routine [facility] NaCl 0.9% (NS) bolus infusion 1,000 mL 04-16 01:15: 04-16 05:39 :00 No 1000mL at 999 mL/hr, 1,000 mL, IV Infusion, ONCE, 1 dose, On Fri04/15/24 at 2014, STAT [facility] ketorolac (TORADOL) injection 15 mg 04-14 00:15: 00 04-13 23:29 :00 No 15mg 15 mg, Slow IV Push, ONCE, 1 dose, On Fri04/13/24 at 1915, Routine [facility] cefTRIAXone (ROCEPHIN) 1,000 mg in NaCl 0.9% (NS) 100 mL MINI-BAG 04-13 23:15: 00 04-13 23:59 :00 No 1000mg 1,000 mg, IV Piggyback, ONCE, 1 dose, On Fri04/13/24 at 1815, Administer over 30 Minutes, 100 mL, Reason for Anti-Infec tive: Documented Infection, Documented Infection Site: Urine, Duration of Therapy: Once (ED) [facility] iopamidol (ISOVUE 370-500 mL) injection 90 mL 04-13 22:00: 00 04-13 22:00 :00 No [id number] 90mL 90 mL, Intravenou s, ONCE, 1 dose, On Fri04/13/24 at 1700, Routine [facility] ketorolac (TORADOL) injection 30 mg 04-13 20:45: 00 04-13 20:30 :00 No 30mg 30 mg, Slow IV Push, ONCE, 1 dose, On Fri04/13/24 at 1545, Routine [facility] dicyclomine (BENTYL) injection 20 mg 04-13 20:30: 00 04-13 20:30 :00 No 20mg 20 mg, Intramuscu lar, ONCE NOW, 1 dose, On Fri04/13/24 at 1530, Routine [facility] pantoprazol e (PROTONIX) injection 40 mg 04-13 20:30: 00 04-13 20:30 :00 No 40mg 40 mg, Slow IV Push, ONCE, 1 dose, On Fri04/13/24 at 1530 [facility] ketorolac 10 mg tablet 04-13 00:00: 00 Yes [id number] 10mg Take 1 tablet by mouth every 6 (six) hours as needed for Pain (scale 4-6), Pain (scale 7-10) or Pain (scale 1-3). [facility] cefdinir 300 mg capsule 04-13 00:00: 00 04-21 04:59 :00 Yes [id number] 300mg Take 1 capsule by mouth in the morning and 1 capsule in the evening. Do all this for 7 days. [facility] famotidine 40 mg tablet 03-22 00:00: 00 04-13 00:00 :00 No [id number] 40mg Take 1 tablet by mouth in the morning. [facility] azelastine 137 mcg (0.1 %) nasal spray 03-22 00:00: 00 04-13 00:00 :00 No [id number] 1{spray } Use 1 [place] in each nostril in the morning and 1 [place] in the evening. Use [employer] coupon if ruiz is high [facility] mupirocin 2 % ointment 03-22 00:00: 00 04-13 00:00 :00 No [id number] Apply inside both nasal cavities with clean finger 2x daily after using saline spray/Alfonso med sinus rinse with distilled water. Continue regularly for 6 weeks, then as needed [facility] naproxen 500 mg tablet 02-19 00:00: 00 04-13 00:00 :00 No [id number] 500mg Take 1 tablet by mouth 2 (two) times daily with meals as needed for Pain (scale 4-6). [facility] cetirizine 10 mg tablet 02-19 00:00: 00 04-13 00:00 :00 No [id number] 10mg Take 1 tablet by mouth at bedtime as needed for Allergies or Runny nose. [facility] amoxicillin -clavulanat e (AUGMENTIN) 875-125 mg per tablet 02-19 00:00: 00 02-27 04:59 :00 Yes [id number] 1{tbl} Take 1 tablet by mouth in the morning and 1 tablet in the evening. Do all this for 7 days. [facility] ketorolac (TORADOL) injection 60 mg 02-17 19:45: 00 02-17 19:08 :00 No [id number] 60mg 60 mg, Intramuscu lar, ONCE, 1 dose, On Fri02/18/24 at 1445, Routine [facility] hydroCHLORO thiazide 25 mg tablet 02-17 00:00: 00 Yes [id number] 25mg Take 1 tablet by mouth in the morning. [facility] pantoprazol e 40 mg EC tablet 02-17 00:00: 00 04-13 00:00 :00 No [id number] 40mg Take 1 tablet by mouth in the morning. [facility] sucralfate 1 gram tablet 02-17 00:00: 00 04-13 00:00 :00 No 1g Take 1 tablet by mouth before meals and at bedtime. [facility] ergocalcife rol, vitamin d2, (VITAMIN D2) 1,250 mcg (50,000 unit) capsule 02-17 00:00: 00 04-13 00:00 :00 No [id number] 81510B Take 1 capsule by mouth weekly. [facility] famotidine 40 mg tablet 01-30 00:00: 00 02-17 00:00 :00 No [id number] 40mg Take 1 tablet by mouth in the morning. [facility] diphenhydrA MINE:lidoca ine 2% viscous:maa lox 1:1:1 (FIRST-MOUT HWASH BLM) oral suspension 15 mL 01-27 02:15: 00 01-27 02:45 :00 No 15mL 15 mL, Oral, ONCE, 1 dose, On Fri01/27/24 at 2115, Routine [facility] ketorolac (TORADOL) injection 30 mg 01-27 00:30: 00 01-26 23:57 :00 No 30mg 30 mg, Slow IV Push, ONCE, 1 dose, On Fri01/27/24 at 1930, Routine [facility] iopamidol (ISOVUE 370-500 mL) injection 125 mL 01-27 00:29: 00 01-27 00:29 :00 No [id number] 125mL 125 mL, Intravenou s, ONCE, 1 dose, On Fri01/27/24 at 1945, Routine [facility] NaCl 0.9% (NS) bolus infusion 1,000 mL 01-26 22:15: 00 01-27 02:50 :00 No 1000mL at 999 mL/hr, 1,000 mL, IV Piggyback, ONCE, 1 dose, On Fri01/27/24 at 1715, STAT [facility] proMETHazin e 25 mg tablet 01-26 00:00: 04-13 00:00 :00 No [id number] 25mg Take 1 tablet by mouth every 6 (six) hours as needed for Nausea and Vomiting (N/V). [facility] sucralfate 1 gram tablet 01-26 00:00: 00 02-17 00:00 :00 No [id number] 1g Take 1 tablet by mouth before meals and at bedtime. [facility] esomeprazol e 40 mg capsule 01-26 00:00: 00 01-30 00:00 :00 No [id number] 40mg Take 1 capsule by mouth daily with breakfast. [facility] ergocalcife rol, vitamin d2, (VITAMIN D2) 1,250 mcg (50,000 unit) capsule 11-27 00:00: 00 02-17 00:00 :00 No [id number] Take 1 capsule by mouth weekly. [facility] diphenhydrA MINE (BENADRYL) 25 mg capsule 11-25 00:00: 00 04-13 00:00 :00 No [id number] 25mg Take 1 capsule by mouth every 6 (six) hours as needed for Allergies. [facility] lidocaine 5 % ointment 11-25 00:00: 00 04-13 00:00 :00 No [id number] Apply to area(s) 2 (two) times daily. [facility] triamcinolo ne acetonide 0.1 % cream 11-25 00:00: 00 04-13 00:00 :00 No [id number] Apply to area(s) 2 (two) times daily. [facility] fluticasone propionate 50 mcg/actuati on nasal spray 11-25 00:00: 00 03-22 00:00 :00 No [id number] 1{spray } Use 1 [place] in each nostril in the morning. [facility] pantoprazol e 40 mg EC tablet 11-25 00:00: 00 02-17 00:00 :00 No [id number] 40mg Take 1 tablet by mouth in the morning. [facility] pantoprazol e 40 mg EC tablet 10-09 00:00: 00 11-25 00:00 :00 No [id number] 40mg Take 1 tablet by mouth in the morning. [facility] fluticasone propionate 50 mcg/actuati on nasal spray 10-09 00:00: 00 11-25 00:00 :00 No [id number] 1{spray } Use 1 [place] in each nostril in the morning. [facility] ketorolac (TORADOL) injection 15 mg 10-02 22:15: 00 10-02 21:47 :00 No 15mg 15 mg, Slow IV Push, ONCE, 1 dose, On Fri10/03/23 at 1615, MARGARITA [facility] iopamidol (ISOVUE 370-500 mL) injection 85 mL 2022-07 02:45: 00 05-07 02:45 :00 No [id number] 85mL 85 mL, Intravenou s, ONCE, 1 dose, On Fri05/06/23 at 2145, Routine [facility] ondansetron (ZOFRAN (PF)) injection 4 mg 2022-07 01:45: 00 05-07 02:54 :00 No 4mg 4 mg, Slow IV Push, ONCE, 1 dose, On Fri05/06/23 at 2045, MARGARITA [facility] pantoprazol e 40 mg EC tablet 2022-07 00:00: 00 07-31 05:59 :00 No 40mg Take 1 tablet by mouth in the morning for 90 days. [facility] pantoprazol e (PROTONIX) EC tablet 40 mg 2022-07 14:00: 00 Yes 40mg 40 mg, Oral, DAILY, First dose on Fri04/30/23 at 0900, Until Discontinu ed, Routine [facility] gabapentin (NEURONTIN) capsule 300 mg 2022-07 01:00: 00 Yes 300mg 300 mg, Oral, TID, First dose on Fri04/29/23 at 2000, Until Discontinu ed, Routine [facility] gabapentin 300 mg capsule 2022-07 0- 00:00: 00 10-09 00:00 :00 No [id number] 300mg Take 1 capsule by mouth in the morning and 1 capsule at noon and 1 capsule in the evening. [facility] ondansetron 4 mg tablet 2022-07 0 00:00: 00 05-15 04:59 :00 No [id number] 4mg Take 1 tablet by mouth every 8 (eight) hours as needed for Nausea and Vomiting (N/V) for up to 14 days. [facility] dicyclomine 20 mg tablet 2022-07 00:00: 00 05-15 04:59 :00 No [id number] 20mg Take 1 tablet by mouth 4 (four) times daily as needed for Abdominal pain for up to 14 days. [facility] methocarbam oL 500 mg tablet 2022-07 0 00:00: 05-05 04:59 :00 No [id number] 500mg Take 1 tablet by mouth 4 (four) times daily for 4 days. [facility] Pantoprazol e 40 mg delayed-rel ease suspension 2022-07 0 00:00: 00 05-01 00:00 :00 No [id number] 40mg Take 40 mg by mouth in the morning and 40 mg in the evening. Do all this for 38 days. [facility] methocarbam oL (ROBAXIN) tablet 500 mg 2022-07 0 21:00: 00 Yes 500mg 500 mg, Oral, QID, First dose on Fri04/29/23 at 1600, Until Discontinu ed, Routine [facility] piperacilli n-tazobacta m (ZOSYN) 3.375 g in NaCl 0.9% (NS) 100 mL MINI-BAG 2022-07 0 07:15: 00 05-02 07:14 :00 No 3.375g 3.375 g, IV Piggyback, Q8H ABX, 9 doses, First dose on Fri04/29/23 at 0215, Last dose on Fri05/01/23 at 1815, Administer over 4 Hours, 100 mL
Reas on for Anti-Infec tive: Empiric Therapy for Suspected Infection< br>Empiric Therapy Site: Skin / Soft tissue
Duration of therapy: 72 hours [facility] piperacilli n-tazobacta m (ZOSYN) 3.375 g in NaCl 0.9% (NS) 100 mL MINI-BAG 2022-07 23:30: 00 04-29 00:00 :00 No 3.375g 3.375 g, IV Piggyback, ONCE, 1 dose, On Fri04/28/23 at 1830, Administer over 30 Minutes, 100 mL
Reas on for Anti-Infec tive: Empiric Therapy for Suspected Infection< br>Empiric Therapy Site: Skin / Soft tissue
Duration of therapy: 72 hours [facility] ondansetron (ZOFRAN) tablet 4 mg 04-25 20:13: 34 Yes 4mg 4 mg, Oral, Q8HPRN, Starting on Fri04/25/23 at 1513, Until Discontinu ed, Routine, Nausea and Vomiting (N/V) [facility] sucralfate (CARAFATE) tablet 1 g 04-24 16:30: 00 Yes 1g 1 g, Oral, AC+HS, First dose on Fri04/24/23 at 1130, Until Discontinu ed, Routine [facility] sucralfate (CARAFATE) 100 mg/mL suspension 1,000 mg 04-23 02:00: 00 04-24 13:09 :41 No 1g 1,000 mg (1 g), Oral, AC+HS, First dose on Fri04/22/23 at 2100, Until Discontinu ed, Routine [facility] [facility] iopamidol (ISOVUE 370-500 mL) injection 125 mL 04-23 01:13: 00 04-23 01:14 :00 No [id number] 125mL 125 mL, Intravenou s, ONCE, 1 dose, On Fri04/22/23 at 2030, Routine [facility] pantoprazol e (PROTONIX) injection 40 mg 04-23 01:00: 00 Yes 40mg 40 mg, Slow IV Push, Q12H, First dose (after last modificati on) on Fri04/22/23 at 2000, Until Discontinu ed [facility] maalox:diph enhydrAMINE :lidocaine 2 % viscous 1:1:1 ([facility] BLM) oral suspension 15 mL 04-23 01:00: 00 Yes 15mL 15 mL, Oral, Q12H, First dose (after last reorder) on Fri04/22/23 at 2000, Until Discontinu ed, Routine [facility] maalox:diph enhydrAMINE :lidocaine 2 % viscous 1:1:1 ([facility] HWASH BLM) oral suspension 15 mL 04-22 19:29: 24 Yes 15mL 15 mL, Oral, QDAILYPRN, Starting on Fri04/22/23 at 1429, Until Discontinu ed, Routine, abd pain [facility] acetaminoph en (TYLENOL) tablet 650 mg 04-22 18:45: 00 Yes 650mg 650 mg, Oral, Q6H, First dose (after last modificati on) on Fri04/22/23 at 1345, Until Discontinu ed, Routine [facility] maalox:diph enhydrAMINE :lidocaine 2 % viscous 1:1:1 ([facility] BLM) oral suspension 15 mL 04-22 11:15: 00 04-22 11:33 :00 No 15mL 15 mL, Oral, ONCE, 1 dose, On Fri04/22/23 at 0630, Routine [facility] HYDROcodone -acetaminop hen (NORCO 5) 5-325 mg tablet 1 tablet 04-22 08:50: 53 Yes 1{tbl} 1 tablet, Oral, Q6HPRN, Starting on Fri04/22/23 at 0350, Until Discontinu ed, Routine, Pain (scale 7-10) [facility] enoxaparin (LOVENOX) injection 40 mg 04-22 08:45: 00 Yes 40mg 40 mg, Subcutaneo us, Q24H, First dose on Fri04/22/23 at 0345, Until Discontinu ed, Routine [facility] pantoprazol e (PROTONIX) injection 40 mg 04-22 08:00: 00 04-22 16:04 :07 No 40mg 40 mg, Slow IV Push, Q24H, 3 doses, First dose on Fri04/22/23 at 0300, Last dose on Fri04/24/23 at 0300 [facility] maalox:diph enhydrAMINE :lidocaine 2 % viscous 1:1:1 ([facility] BLM) oral suspension 15 mL 04-22 06:00: 00 04-22 06:09 :00 No 15mL 15 mL, Oral, ONCE, 1 dose, On Fri04/22/23 at 0100, Routine [facility] maalox:diph enhydrAMINE :lidocaine 2 % viscous 1:1:1 ([facility] BLM) oral suspension 15 mL 04-21 23:45: 00 04-22 00:39 :00 No 15mL 15 mL, Oral, ONCE, 1 dose, On Fri04/21/23 at 1845, Routine [facility] NaCl 0.9% (NS) bolus infusion 1,000 mL 04-21 23:30: 00 04-22 01:59 :00 No 1000mL at 999 mL/hr, 1,000 mL, IV Infusion, ONCE, 1 dose, On Fri04/21/23 at 1830, MARGARITA [facility] Pantoprazol e 40 mg delayed-rel ease suspension 03-13 14:52: 41 03-13 00:00 :00 No 40mg Take 40 mg by mouth in the morning. [facility] peg-electro lyte soln 236-22.74-6 .74 -5.86 gram solution 03-13 00:00: 10-09 00:00 :00 No [id number] Take as directed before colonoscop y [facility] Pantoprazol e 40 mg delayed-rel ease suspension 03-13 00:00: 00 04-30 00:00 :00 No [id number] 40mg Take 40 mg by mouth in the morning and 40 mg in the evening. [facility] maalox:diph enhydrAMINE :lidocaine 2 % viscous 1:1:1 ([facility] BLM) oral suspension 15 mL 03-12 01:30: 00 03-12 01:35 :00 No 15mL 15 mL, Oral, ONCE, 1 dose, On Fri03/11/23 at 2030, Routine [facility] dicyclomine (BENTYL) tablet 20 mg 03-12 01:30: 00 03-12 01:34 :00 No 20mg 20 mg, Oral, ONCE, 1 dose, On Fri03/11/23 at 2030, MARGARITA [facility] NaCl 0.9% (NS) bolus infusion 1,000 mL 03-11 23:45: 00 03-12 01:58 :00 No 1000mL at 999 mL/hr, 1,000 mL, IV Infusion, ONCE, 1 dose, On Fri03/11/23 at 1845, MARGARITA [facility] ondansetron (ZOFRAN (PF)) injection 4 mg 03-11 23:00: 00 03-12 00:32 :00 No 4mg 4 mg, Slow IV Push, ONCE, 1 dose, On Fri03/11/23 at 1800, MARGARITA [facility] ondansetron 4 mg disintegrat ing tablet 03-11 00:00: 00 10-09 00:00 :00 No [id number] 4mg Take 1 tablet by mouth every 8 (eight) hours as needed for Nausea and Vomiting (N/V). [facility] dicyclomine 20 mg tablet 03-11 00:00: 00 04-30 00:00 :00 No [id number] 20mg Take 1 tablet by mouth 4 (four) times daily as needed for Abdominal pain. [facility] pantoprazol e (PROTONIX) 40 mg EC tablet 02-27 00:00: 00 02-26 00:00 :00 No [id number] 40mg Take 1 tablet by mouth in the morning for 30 days. [facility] aspirin 81 mg chewable tablet 02-27 00:00: 00 02-26 00:00 :00 No [id number] 81mg Take 1 tablet by mouth in the morning for 30 days. [facility] maalox:diph enhydrAMINE :lidocaine 2 % viscous 1:1:1 ([facility]) oral suspension 15 mL 02-26 17:30: 00 02-26 17:41 :00 No 15mL 15 mL, Oral, ONCE, 1 dose, On Fri02/26/23 at 1230, Routine [facility] cefTRIAXone (ROCEPHIN) 1,000 mg in NaCl 0.9% (NS) 100 mL MINI-BAG 02-26 14:45: 00 02-26 16:14 :00 No 1000mg 1,000 mg, IV Piggyback, Q24H ABX, 1 dose, First dose on Fri02/26/23 at 0945, Administer over 30 Minutes, 100 mL
Reas on for Anti-Infec tive: Empiric Therapy for Suspected Infection< br>Empiric Therapy Site: Urine
D uration of therapy: 5 days [facility] pantoprazol e (PROTONIX) EC tablet 40 mg 02-26 14:00: 00 Yes 40mg 40 mg, Oral, DAILY, First dose on Fri02/26/23 at 0900, Until Discontinu ed, Routine [facility] aspirin chewable tablet 81 mg 02-26 14:00: 00 Yes 81mg 81 mg, Oral, DAILY, First dose on Fri02/26/23 at 0900, Until Discontinu ed, Routine [facility] enoxaparin (LOVENOX) injection 40 mg 02-26 14:00: 00 Yes 40mg 40 mg, Subcutaneo us, DAILY, First dose on Fri02/26/23 at 0900, Until Discontinu ed, Routine [facility] dicyclomine (BENTYL) tablet 20 mg 02-26 04:22: 14 Yes 20mg 20 mg, Oral, Q6HPRN, Starting on Fri02/25/23 at 2322, Until Discontinu ed, Routine, Abdominal pain [facility] sulfamethox azole-trime thoprim (BACTRIM DS) 800-160 mg per tablet 02-26 00:00: 00 02-26 00:00 :00 No [id number] 1{tbl} Take 1 tablet by mouth in the morning and 1 tablet in the evening. Do all this for 3 days. [facility] atorvastati n 20 mg tablet 02-26 00:00: 00 02-26 00:00 :00 No [id number] 20mg Take 1 tablet by mouth at bedtime for 30 days. [facility] sucralfate 1 gram tablet 02-26 00:00: 00 02-26 00:00 :00 No [id number] 1g Take 1 tablet by mouth before meals and at bedtime for 20 days. [facility] aspirin tablet 325 mg 02-25 23:00: 00 02-25 22:02 :00 No 325mg 325 mg, Oral, ONCE, 1 dose, On Fri02/25/23 at 1800, MARGARITA [facility] ondansetron (ZOFRAN (PF)) injection 4 mg 02-25 22:57: 52 Yes 4mg 4 mg, Slow IV Push, Q6HPRN, Starting on Fri02/25/23 at 1757, Until Discontinu ed, Routine, Nausea and Vomiting (N/V) [facility] acetaminoph en (TYLENOL) tablet 650 mg 02-25 22:57: 45 Yes 650mg 650 mg, Oral, Q6HPRN, Starting on Fri02/25/23 at 1757, Until Discontinu ed, Routine, Pain (scale 1-3) [facility] NaCl 0.9% (NS) bolus infusion 1,000 mL 02-25 21:45: 00 02-25 21:51 :00 No 1000mL at 999 mL/hr, 1,000 mL, IV Infusion, ONCE, 1 dose, On Fri02/25/23 at 1645, STAT [facility] nitroglycer in (NITROL) 2 % ointment 0.5 Inch 02-25 21:45: 00 02-25 21:51 :00 No .5[in_u s] 0.5 Inch, Transderma l (Apply To Skin), ONCE, 1 dose, On Fri02/25/23 at 1645, MARGARITA [facility] iopamidol (ISOVUE 370-500 mL) injection 100 mL 02-25 20:49: 00 02-25 20:48 :00 No [id number] 100mL 100 mL, Intravenou s, ONCE, 1 dose, On Fri02/25/23 at 1615, Routine [facility] NaCl 0.9% (NS) injection 5 mL 02-25 20:15: 02 Yes 5mL 5 mL, Slow IV Push, PRN - SEE INSTRUCTIO NS, Starting on Fri02/25/23 at 1515, Until Discontinu ed, 10 mL [facility] maalox:diph enhydrAMINE :lidocaine 2 % viscous 1:1:1 ([facility] BLM) oral suspension 15 mL 02-03 04:15: 00 02-03 04:27 :00 No 15mL 15 mL, Oral, ONCE, 1 dose, On Fri02/02/23 at 2315, Routine [facility] iopamidol (ISOVUE 370-500 mL) injection 100 mL 02-03 02:45: 00 02-03 01:46 :00 No [id number] 100mL 100 mL, Intravenou s, ONCE, 1 dose, On Fri02/02/23 at 2145, Routine [facility] ketorolac (TORADOL) injection 30 mg 02-03 02:15: 00 02-03 01:29 :00 No 30mg 30 mg, Slow IV Push, ONCE, 1 dose, On 02/02/23 at 2115, Routine [facility] maalox:diph enhydrAMINE :lidocaine 2 % viscous 1:1:1 (FIRST-MOUT [facility] BLM) oral suspension 15 mL 02-03 01:30: 00 02-03 01:29 :00 No 15mL 15 mL, Oral, ONCE, 1 dose, On 02/02/23 at 2030, Routine [facility] pantoprazol e (PROTONIX) 40 mg EC tablet 02-02 00:00: 00 Yes [id number] 40mg Take 1 tablet by mouth in the morning. [facility] dicyclomine 20 mg tablet 02-02 00:00: 00 Yes [id number] 20mg Take 1 tablet by mouth every 6 (six) hours as needed for Abdominal pain. [facility] ondansetron (ZOFRAN) 4 mg tablet 02-02 00:00: 00 Yes [id number] 4mg Take 1 tablet by mouth every 8 (eight) hours as needed for Nausea and Vomiting (N/V). [facility] albuterol 90 mcg/actuati on inhaler 2021-07 00:00: 00 02-25 00:00 :00 No [id number] 2{puff} Inhale 2 Puffs every 4 (four) hours as needed for Wheezing or Shortness of Breath. [facility] benzonatate 100 mg capsule 2021-07 025 00:00: 00 02-25 00:00 :00 No [id number] 100mg Take 1 capsule by mouth 3 (three) times daily as needed for Cough. [facility] dextrometho sandi-patof enesin 10-100 mg/5 mL solution 9-27 00:00: 00 05-01 04:59 :00 No [id number] 5mL Take 5 mL by mouth every 6 (six) hours as needed for Cough for up to 7 days. [facility] fluticasone propionate 50 mcg/actuati on nasal spray 04-23 00:00: 05-01 04:59 :00 No [id number] 1{spray } Use 1 [place] in each nostril in the morning for 7 days. [facility] triamcinolo ne acetonide 0.1 % ointment 12-13 00:00: 00 02-25 00:00 :00 No [id number] Apply to area(s) 2 (two) times daily. [facility] aug betamethaso ne dipropionat e 0.05 % cream 12-13 00:00: 00 02-25 00:00 :00 No [id number] Apply to area(s) 2 (two) times daily. [facility] benzonatate (TESSALON PERLES) 100 mg capsule 08-23 00:00: 00 05-21 00:00 :00 No [id number] 100mg Take 1 capsule by mouth every 8 (eight) hours as needed for Cough. [facility] pantoprazol e 40 mg EC tablet 08-21 00:00: 00 02-25 00:00 :00 No [id number] 40mg Take 1 tablet by mouth 2 (two) times daily. [facility] aug betamethaso ne dipropionat e 0.05 % cream 08-07 00:00: 00 02-25 00:00 :00 No [id number] Apply to area(s) 2 (two) times daily. Avoid face, armpits, and groin. [facility] triamcinolo ne acetonide 0.1 % ointment 08-07 00:00: 00 02-25 00:00 :00 No [id number] Apply to area(s) 2 (two) times daily. As needed for rash. Avoid face, armpits, and groin. [facility] hydroCHLORO thiazide 25 mg tablet 2020-07 2-30 00:00: 02-25 00:00 :00 No [id number] 12.5mg Take 0.5 tablets by mouth daily. [facility] naproxen 500 mg tablet 2020-07- 00:00: 00 02-25 00:00 :00 No [id number] 500mg Take 1 tablet by mouth 2 (two) times daily with meals. [facility] hydrOXYzine 25 mg tablet 2020-07 00:00: 00 02-25 00:00 :00 No [id number] 25mg Take 1 tablet by mouth 2 (two) times daily as needed for Anxiety. [facility] DULoxetine 20 mg capsule 2020-07 00:00: 00 02-25 00:00 :00 No [id number] 20mg Take 1 capsule by mouth daily. [facility] hydroCHLORO thiazide 25 mg tablet 2020-07 0-29 00:00: 00 07-26 00:00 :00 No [id number] 12.5mg Take 0.5 tablets by mouth daily. [facility] hydrOXYzine 25 mg tablet 2020-07 0-23 00:00: 00 02-25 00:00 :00 No [id number] 25mg Take 1 tablet by mouth every 6 (six) hours as needed for Anxiety. [facility] fluconazole (DIFLUCAN) 150 mg tablet 04-23 00:00: 00 08-21 00:00 :00 No [id number] Take 1 tablet by mouth every 3 days, for 3 doses [facility] aug betamethaso ne dipropionat e 0.05 % cream 04-23 00:00: 00 08-06 00:00 :00 No [id number] Apply to area(s) 2 (two) times daily. Avoid face, armpits, and groin. [facility] triamcinolo ne acetonide 0.1 % ointment 04-23 00:00: 00 08-06 00:00 :00 No [id number] Apply to area(s) 2 (two) times daily. As needed for rash. Avoid face, armpits, and groin. [facility] pantoprazol e 40 mg EC tablet 04-06 00:00: 00 08-21 00:00 :00 No [id number] 40mg Take 1 tablet by mouth daily. [facility] vitamin w/FA tablet 03-29 00:00: 00 Yes [id number] 1{tbl} Take 1 tablet by mouth daily. [facility] docusate calcium 240 mg capsule 03-29 00:00: 00 02-25 00:00 :00 No [id number] 240mg Take 1 capsule by mouth once daily as needed for Constipati on. [facility] ferrous sulfate 325 mg (65 mg iron) tablet 03-29 00:00: 00 02-25 00:00 :00 No [id number] 325mg Take 1 tablet by mouth 2 (two) times daily. [facility] ibuprofen 600 mg tablet 03-29 00:00: 00 02-25 00:00 :00 No [id number] 600mg Take 1 tablet by mouth every 6 (six) hours as needed (Pain). Take with food or milk. [facility] vitamin w/FA tablet 03-29 00:00: 00 02-25 00:00 :00 No [id number] 1{tbl} Take 1 tablet by mouth daily. [facility] pantoprazol e (PROTONIX) 40 mg EC tablet 02-28 00:00: 00 06-06 00:00 :00 No [id number] 40mg Take 1 tablet by mouth daily. [facility] Immunizations Ordered Immunization Name Filled Immunization Name Date Status Comments Source Influenza Virus Vaccine Quad IM, Preserv and ABX Free 6 MO-64 YRS 2021-05-25 00:00:[address] [facility] Influenza Virus Vaccine Quad IM, Preserv and ABX Free 6 MO-64 YRS 2021-05-25 00:00:[address] [facility] Influenza Virus Vaccine Quad IM, Preserv and ABX Free 6 MO-64 YRS 2021-05-25 00:00:[address] [facility] Influenza Virus Vaccine Quad IM, Preserv and ABX Free 6 MO-64 YRS 2021-05-25 00:00:[address] [facility] Influenza Virus Vaccine Quad IM, Preserv and ABX Free 6 MO-64 YRS 2021-05-25 00:00:[address] [facility] Influenza Virus Vaccine Quad IM, Preserv and ABX Free 6 MO-64 YRS 2021-05-25 00:00:[address] [facility] Influenza Virus Vaccine Quad IM, Preserv and ABX Free 6 MO-64 YRS 2021-05-25 00:00:[address] [facility] Influenza Virus Vaccine Quad IM, Preserv and ABX Free 6 MO-64 YRS 2021-05-25 00:00:[address] [facility] Influenza Virus Vaccine Quad IM, Preserv and ABX Free 6 MO-64 YRS 2021-05-25 00:00:[address] [facility] Influenza Virus Vaccine Quad IM, Preserv and ABX Free 6 MO-64 YRS 2021-05-25 00:00:[address] [facility] Influenza Virus Vaccine Quad IM, Preserv and ABX Free 6 MO-64 YRS 2021-05-25 00:00:[address] [facility] Influenza Virus Vaccine Quad IM, Preserv and ABX Free 6 MO-64 YRS 2021-05-25 00:00:[address] [facility] Influenza Virus Vaccine Quad IM, Preserv and ABX Free 6 MO-64 YRS 2021-05-25 00:00:[address] [facility] Influenza Virus Vaccine Quad IM, Preserv and ABX Free 6 MO-64 YRS 2021-05-25 00:00:[address] [facility] Influenza Virus Vaccine Quad IM, Preserv and ABX Free 6 MO-64 YRS 2021-05-25 00:00:[address] [facility] Influenza Virus Vaccine Quad IM, Preserv and ABX Free 6 MO-64 YRS 2021-05-25 00:00:[address] [facility] Influenza Virus Vaccine Quad IM, Preserv and ABX Free 6 MO-64 YRS 2021-05-25 00:00:[address] [facility] Influenza Virus Vaccine Quad IM, Preserv and ABX Free 6 MO-64 YRS 2021-05-25 00:00:[address] [facility] Influenza Virus Vaccine Quad IM, Preserv and ABX Free 6 MO-64 YRS 2021-05-25 00:00:[address] [facility] Influenza Virus Vaccine Quad IM, Preserv and ABX Free 6 MO-64 YRS 2021-05-25 00:00:[address] [facility] Influenza Virus Vaccine Quad IM, Preserv and ABX Free 6 MO-64 YRS (FLUCELVAX) 2021-05-25 00:00:[address] [facility] TDAP 2021-01-17 00:00:[address] [facility] TDAP 2021-01-17 00:00:[address] [facility] TDAP 2021-01-17 00:00:[address] [facility] TDAP 2021-01-17 00:00:[address] [facility] TDAP 2021-01-17 00:00:[address] [facility] TDAP 2021-01-17 00:00:[address] [facility] TDAP 2021-01-17 00:00:[address] [facility] TDAP 2021-01-17 00:00:[address] [facility] TDAP 2021-01-17 00:00:[address] [facility] TDAP 2021-01-17 00:00:[address] [facility] TDAP 2021-01-17 00:00:[address] [facility] TDAP 2021-01-17 00:00:[address] [facility] TDAP 2021-01-17 00:00:[address] [facility] TDAP 2021-01-17 00:00:[address] [facility] TDAP 2021-01-17 00:00:[address] [facility] TDAP 2021-01-17 00:00:[address] [facility] TDAP 2021-01-17 00:00:[address] [facility] TDAP 2021-01-17 00:00:[address] [facility] TDAP 2021-01-17 00:00:[address] [facility] TDAP 2021-01-17 00:00:[address] [facility] TDAP 2021-01-17 00:00:[address] [facility] TDAP 2012-09-29 00:00:[address] [facility] TDAP 2012-09-29 00:00:[address] [facility] TDAP 2012-09-29 00:00:[address] [facility] TDAP 2012-09-29 00:00:[address] [facility] TDAP 2012-09-29 00:00:[address] [facility] TDAP 2012-09-29 00:00:[address] [facility] TDAP 2012-09-29 00:00:[address] [facility] TDAP 2012-09-29 00:00:[address] [facility] TDAP 2012-09-29 00:00:[address] [facility] TDAP 2012-09-29 00:00:[address] [facility] TDAP 2012-09-29 00:00:[address] [facility] TDAP 2012-09-29 00:00:[address] [facility] TDAP 2012-09-29 00:00:[address] [facility] TDAP 2012-09-29 00:00:[address] [facility] TDAP 2012-09-29 00:00:[address] [facility] TDAP 2012-09-29 00:00:00 Completed [facility] TDAP 2012-09-29 00:00:00 Completed [facility] TDAP 2012-09-29 00:00:00 Completed [facility] TDAP 2012-09-29 00:00:00 Completed [facility] TDAP 2012-09-29 00:00:00 Completed [facility] TDAP 2012-09-29 00:00:[address] [facility] Td 1994-07-28 00:00:00 Completed [facility] Td 1994-07-28 00:00:00 Completed [facility] Td 1994-07-28 00:00:[address] [facility] Td 1994-07-28 00:00:[address] [facility] Td 1994-07-28 00:00:00 Completed [facility] Td 1994-07-28 00:00:[address] [facility] Td 1994-07-28 00:00:[address] [facility] Td 1994-07-28 00:00:[address] [facility] Td 1994-07-28 00:00:[address] [facility] Td 1994-07-28 00:00:[address] [facility] TD, NOS 1994-07-28 00:00:[address] [facility] TD, NOS 1994-07-28 00:00:[address] [facility] TD, NOS 1994-07-28 00:00:[address] [facility] TD, NOS 1994-07-28 00:00:[address] [facility] TD, NOS 1994-07-28 00:00:[address] [facility] TD, NOS 1994-07-28 00:00:[address] [facility] TD, NOS 1994-07-28 00:00:[address] [facility] TD, NOS 1994-07-28 00:00:[address] [facility] TD, NOS 1994-07-28 00:00:[address] [facility] TD, NOS 1994-07-28 00:00:[address] [facility] TD, NOS 1994-07-28 00:00:[address] [facility] TD, NOS Unknown Completed [facility] TDAP Unknown Completed [facility] TDAP Unknown Completed [facility] Influenza Virus Vaccine Quad IM, Preserv and ABX Free 6 MO-64 YRS (FLUCELVAX) Unknown Completed [facility] TD, NOS Unknown Completed [facility] TDAP Unknown Completed [facility] TDAP Unknown Completed [facility] Influenza Virus Vaccine Quad IM, Preserv and ABX Free 6 MO-64 YRS (FLUCELVAX) Unknown Completed [facility] TD, NOS Unknown Completed [facility] TDAP Unknown Completed [facility] TDAP Unknown Completed [facility] Influenza Virus Vaccine Quad IM, Preserv and ABX Free 6 MO-64 YRS (FLUCELVAX) Unknown Completed [facility] TD, NOS Unknown Completed [facility] TDAP Unknown Completed [facility] TDAP Unknown Completed [facility] Influenza Virus Vaccine Quad IM, Preserv and ABX Free 6 MO-64 YRS (FLUCELVAX) Unknown Completed [facility] TD, NOS Unknown Completed [facility] TDAP Unknown Completed [facility] TDAP Unknown Completed [facility] TD[facility] NOS Unknown Completed [facility] TDAP Unknown Completed [facility] TDAP Unknown Completed [facility] TD, NOS Unknown Completed [facility] TDAP Unknown Completed [facility] TDAP Unknown Completed [facility] Influenza Virus Vaccine Quad IM, Preserv and ABX Free 6 MO-64 YRS (FLUCELVAX) Unknown Completed [facility] TD, NOS Unknown Completed [facility] TDAP Unknown Completed [facility] TDAP Unknown Completed [facility] Influenza Virus Vaccine Quad IM, Preserv and ABX Free 6 MO-64 YRS (FLUCELVAX) Unknown Completed [facility] TD, NOS Unknown Completed [facility] TDAP Unknown Completed [facility] TDAP Unknown Completed [facility] Influenza Virus Vaccine Quad IM, Preserv and ABX Free 6 MO-64 YRS (FLUCELVAX) Unknown Completed [facility] TD, NOS Unknown Completed [facility] TDAP Unknown Completed [facility] TDAP Unknown Completed [facility] Influenza Virus Vaccine Quad IM, Preserv and ABX Free 6 MO-64 YRS (FLUCELVAX) Unknown Completed [facility] TD, NOS Unknown Completed [facility] TDAP Unknown Completed [facility] TDAP Unknown Completed [facility] Influenza Virus Vaccine Quad IM, Preserv and ABX Free 6 MO-64 YRS (FLUCELVAX) Unknown Completed [facility] TD, NOS Unknown Completed [facility] TDAP Unknown Completed [facility] TDAP Unknown Completed [facility] Influenza Virus Vaccine Quad IM, Preserv and ABX Free 6 MO-64 YRS (FLUCELVAX) Unknown Completed [facility] TD, NOS Unknown Completed [facility] TDAP Unknown Completed [facility] TDAP Unknown Completed [facility] Influenza Virus Vaccine Quad IM, Preserv and ABX Free 6 MO-64 YRS (FLUCELVAX) Unknown Completed [facility] TD, NOS Unknown Completed [facility] TDAP Unknown Completed [facility] TDAP Unknown Completed [facility] Influenza Virus Vaccine Quad IM, Preserv and ABX Free 6 MO-64 YRS (FLUCELVAX) Unknown Completed [facility] TD, NOS Unknown Completed [facility] TDAP Unknown Completed [facility] TDAP Unknown Completed [facility] Influenza Virus Vaccine Quad IM, Preserv and ABX Free 6 MO-64 YRS (FLUCELVAX) Unknown Completed [facility] TD, NOS Unknown Completed [facility] TDAP Unknown Completed [facility] TDAP Unknown Completed [facility] Influenza Virus Vaccine Quad IM, Preserv and ABX Free 6 MO-64 YRS (FLUCELVAX) Unknown Completed [facility] TD, NOS Unknown Completed [facility] TDAP Unknown Completed [facility] TDAP Unknown Completed [facility] Influenza Virus Vaccine Quad IM, Preserv and ABX Free 6 MO-64 YRS (FLUCELVAX) Unknown Completed [facility] TD, NOS Unknown Completed [facility] TDAP Unknown Completed [facility] TDAP Unknown Completed [facility] Influenza Virus Vaccine Quad IM, Preserv and ABX Free 6 MO-64 YRS (FLUCELVAX) Unknown Completed [facility] TD, NOS Unknown Completed [facility] TDAP Unknown Completed [facility] TDAP Unknown Completed [facility] Influenza Virus Vaccine Quad IM, Preserv and ABX Free 6 MO-64 YRS (FLUCELVAX) Unknown Completed [facility] TD, NOS Unknown Completed [facility] TDAP Unknown Completed [facility] TDAP Unknown Completed [facility] Influenza Virus Vaccine Quad IM, Preserv and ABX Free 6 MO-64 YRS (FLUCELVAX) Unknown Completed [facility] TD, NOS Unknown Completed [facility] TDAP Unknown Completed [facility] TDAP Unknown Completed [facility] Influenza Virus Vaccine Quad IM, Preserv and ABX Free 6 MO-64 YRS (FLUCELVAX) Unknown Completed [facility] TD, NOS Unknown Completed [facility] TDAP Unknown Completed [facility] TDAP Unknown Completed [facility] Influenza Virus Vaccine Quad IM, Preserv and ABX Free 6 MO-64 YRS (FLUCELVAX) Unknown Completed [facility] TD, NOS Unknown Completed [facility] TDAP Unknown Completed [facility] TDAP Unknown Completed [facility] Influenza Virus Vaccine Quad IM, Preserv and ABX Free 6 MO-64 YRS (FLUCELVAX) Unknown Completed [facility] TD, NOS Unknown Completed [facility] TDAP Unknown Completed [facility] TDAP Unknown Completed [facility] Influenza Virus Vaccine Quad IM, Preserv and ABX Free 6 MO-64 YRS (FLUCELVAX) Unknown Completed [facility] TD, NOS Unknown Completed [facility] TDAP Unknown Completed [facility] TDAP Unknown Completed [facility] Influenza Virus Vaccine Quad IM, Preserv and ABX Free 6 MO-64 YRS (FLUCELVAX) Unknown Completed [facility] TD, NOS Unknown Completed [facility] TDAP Unknown Completed [facility] TDAP Unknown Completed [facility] Influenza Virus Vaccine Quad IM, Preserv and ABX Free 6 MO-64 YRS (FLUCELVAX) Unknown Completed [facility] TD, NOS Unknown Completed [facility] TDAP Unknown Completed [facility] TDAP Unknown Completed [facility] Influenza Virus Vaccine Quad IM, Preserv and ABX Free 6 MO-64 YRS (FLUCELVAX) Unknown Completed [facility] TD, NOS Unknown Completed [facility] TDAP Unknown Completed [facility] TDAP Unknown Completed [facility] Influenza Virus Vaccine Quad IM, Preserv and ABX Free 6 MO-64 YRS (FLUCELVAX) Unknown Completed [facility] TD, NOS Unknown Completed [facility] TDAP Unknown Completed [facility] TDAP Unknown Completed [facility] Influenza Virus Vaccine Quad IM, Preserv and ABX Free 6 MO-64 YRS (FLUCELVAX) Unknown Completed [facility] TD, NOS Unknown Completed [facility] TDAP Unknown Completed [facility] TDAP Unknown Completed [facility] Influenza Virus Vaccine Quad IM, Preserv and ABX Free 6 MO-64 YRS (FLUCELVAX) Unknown Completed [facility] TD, NOS Unknown Completed [facility] TDAP Unknown Completed [facility] TDAP Unknown Completed [facility] Influenza Virus Vaccine Quad IM, Preserv and ABX Free 6 MO-64 YRS (FLUCELVAX) Unknown Completed [facility] TD, NOS Unknown Completed [facility] TDAP Unknown Completed [facility] TDAP Unknown Completed [facility] Influenza Virus Vaccine Quad IM, Preserv and ABX Free 6 MO-64 YRS (FLUCELVAX) Unknown Completed [facility] TD, NOS Unknown Completed [facility] TDAP Unknown Completed [facility] TDAP Unknown Completed [facility] Influenza Virus Vaccine Quad IM, Preserv and ABX Free 6 MO-64 YRS (FLUCELVAX) Unknown Completed [facility] TD, NOS Unknown Completed [facility] TDAP Unknown Completed [facility] TDAP Unknown Completed [facility] Influenza Virus Vaccine Quad IM, Preserv and ABX Free 6 MO-64 YRS (FLUCELVAX) Unknown Completed [facility] TD, NOS Unknown Completed [facility] TDAP Unknown Completed [facility] TDAP Unknown Completed [facility] Influenza Virus Vaccine Quad IM, Preserv and ABX Free 6 MO-64 YRS (FLUCELVAX) Unknown Completed [facility] TD, NOS Unknown Completed [facility] TDAP Unknown Completed [facility] TDAP Unknown Completed [facility] Influenza Virus Vaccine Quad IM, Preserv and ABX Free 6 MO-64 YRS (FLUCELVAX) Unknown Completed [facility] TD, NOS Unknown Completed [facility] TDAP Unknown Completed [facility] TDAP Unknown Completed [facility] Influenza Virus Vaccine Quad IM, Preserv and ABX Free 6 MO-64 YRS (FLUCELVAX) Unknown Completed [facility] TD, NOS Unknown Completed [facility] TDAP Unknown Completed [facility] TDAP Unknown Completed [facility] Influenza Virus Vaccine Quad IM, Preserv and ABX Free 6 MO-64 YRS (FLUCELVAX) Unknown Completed [facility] TD, NOS Unknown Completed [facility] TDAP Unknown Completed [facility] TDAP Unknown Completed [facility] Influenza Virus Vaccine Quad IM, Preserv and ABX Free 6 MO-64 YRS (FLUCELVAX) Unknown Completed [facility] TD, NOS Unknown Completed [facility] TDAP Unknown Completed [facility] TDAP Unknown Completed [facility] Influenza Virus Vaccine Quad IM, Preserv and ABX Free 6 MO-64 YRS (FLUCELVAX) Unknown Completed [facility] TD, NOS Unknown Completed [facility] TDAP Unknown Completed [facility] Influenza Virus Vaccine Quad IM, Preserv and ABX Free 6 MO-64 YRS (FLUCELVAX) Unknown Completed [facility] TD, NOS Unknown Completed [facility] TDAP Unknown Completed [facility] Influenza Virus Vaccine Quad IM, Preserv and ABX Free 6 MO-64 YRS (FLUCELVAX) Unknown Completed [facility] TD, NOS Unknown Completed [facility] TDAP Unknown Completed [facility] Influenza Virus Vaccine Quad IM, Preserv and ABX Free 6 MO-64 YRS (FLUCELVAX) Unknown Completed [facility] TD, NOS Unknown Completed [facility] TDAP Unknown Completed [facility] Influenza Virus Vaccine Quad IM, Preserv and ABX Free 6 MO-64 YRS (FLUCELVAX) Unknown Completed [facility] TD, NOS Unknown Completed [facility] TDAP Unknown Completed [facility] Influenza Virus Vaccine Quad IM, Preserv and ABX Free 6 MO-64 YRS (FLUCELVAX) Unknown Completed [facility] TD, NOS Unknown Completed [facility] TDAP Unknown Completed [facility] Influenza Virus Vaccine Quad IM, Preserv and ABX Free 6 MO-64 YRS (FLUCELVAX) Unknown Completed [facility] Vital Signs Vital Name Observation Time Observation Value Comments S ource Systolic blood pressure 2024-04-19 19:53:00 123 mm[Hg] [facility] Diastolic blood pressure 2024-04-19 19:53:00 84 mm[Hg] [facility] Heart rate 2024-04-19 19:53:00 86 /min [facility] Body height 2024-04-19 19:53:[address] [facility] Body weight 2024-04-19 19:53:[address] [facility] BMI 2024-04-19 19:53:00 58.88 kg/m2 [facility] Oxygen saturation in Arterial blood by Pulse oximetry 2024-04-19 19:53:00 96 /min [facility] Systolic blood pressure 2024-04-16 05:45:00 133 mm[Hg] [facility] Diastolic blood pressure 2024-04-16 05:45:00 94 mm[Hg] [facility] Heart rate 2024-04-16 05:45:00 94 /min [facility] Respiratory rate 2024-04-16 05:45:00 20 /min [facility] Oxygen saturation in Arterial blood by Pulse oximetry 2024-04-16 05:45:00 95 /min [facility] Body temperature 2024-04-15 23:47:[address] [facility] Body height 2024-04-15 23:43:[address] [facility] Body weight 2024-04-15 23:43:[address] [facility] BMI 2024-04-15 23:43:00 56.58 kg/m2 [facility] Systolic blood pressure 2024-04-14 00:00:00 143 mm[Hg] [facility] Diastolic blood pressure 2024-04-14 00:00:00 89 mm[Hg] [facility] Heart rate 2024-04-14 00:00:00 88 /min [facility] Body temperature 2024-04-14 00:00:[address] [facility] Respiratory rate 2024-04-14 00:00:00 18 /min [facility] Oxygen saturation in Arterial blood by Pulse oximetry 2024-04-14 00:00:00 97 /min [facility] Body height 2024-04-13 19:11:[address] [facility] Body weight 2024-04-13 19:11:[address] [facility] BMI 2024-04-13 19:11:00 59.91 kg/m2 [facility] Body height 2024-03-22 14:15:[address] [facility] Body weight 2024-03-22 14:15:[address] [facility] BMI 2024-03-22 14:15:00 61.80 kg/m2 [facility] Systolic blood pressure 2024-02-18 18:13:00 144 mm[Hg] [facility] Diastolic blood pressure 2024-02-18 18:13:00 90 mm[Hg] [facility] Heart rate 2024-02-18 18:11:00 102 /min [facility] Body temperature 2024-02-18 18:11:[address] [facility] Respiratory rate 2024-02-18 18:11:00 18 /min [facility] Body height 2024-02-18 18:11:[address] [facility] Body weight 2024-02-18 18:11:[address] [facility] BMI 2024-02-18 18:11:00 60.39 kg/m2 [facility] Oxygen saturation in Arterial blood by Pulse oximetry 2024-02-18 18:11:00 93 /min [facility] Systolic blood pressure 2024-01-28 01:45:00 174 mm[Hg] [facility] Diastolic blood pressure 2024-01-28 01:45:00 97 mm[Hg] [facility] Heart rate 2024-01-28 01:45:00 72 /min [facility] Respiratory rate 2024-01-28 01:45:00 18 /min [facility] Oxygen saturation in Arterial blood by Pulse oximetry 2024-01-28 01:45:00 95 /min [facility] Body temperature 2024-01-27 21:15:[address] [facility] Body weight 2024-01-27 21:15:[address] [facility] BMI 2024-01-27 21:15:00 58.24 kg/m2 [facility] Body height 2024-01-27 21:13:[address] [facility] Systolic blood pressure 2023-11-26 17:51:00 143 mm[Hg] [facility] Diastolic blood pressure 2023-11-26 17:51:00 99 mm[Hg] [facility] Heart rate 2023-11-26 17:47:00 95 /min [facility] Body temperature 2023-11-26 17:47:[address] [facility] Respiratory rate 2023-11-26 17:47:00 18 /min [facility] Body height 2023-11-26 17:47:[address] [facility] Body weight 2023-11-26 17:47:[address] [facility] BMI 2023-11-26 17:47:00 59.48 kg/m2 [facility] Oxygen saturation in Arterial blood by Pulse oximetry 2023-11-26 17:47:00 97 /min [facility] Systolic blood pressure 2023-10-10 19:40:00 113 mm[Hg] [facility] Diastolic blood pressure 2023-10-10 19:40:00 80 mm[Hg] [facility] Heart rate 2023-10-10 19:34:00 94 /min [facility] Body temperature 2023-10-10 19:34:[address] [facility] Respiratory rate 2023-10-10 19:34:00 18 /min [facility] Body height 2023-10-10 19:34:[address] [facility] Body weight 2023-10-10 19:34:[address] [facility] BMI 2023-10-10 19:34:00 57.14 kg/m2 [facility] Oxygen saturation in Arterial blood by Pulse oximetry 2023-10-10 19:34:00 96 /min [facility] Systolic blood pressure 2023-10-04 00:00:00 159 mm[Hg] [facility] Diastolic blood pressure 2023-10-04 00:00:00 98 mm[Hg] [facility] Heart rate 2023-10-04 00:00:00 88 /min [facility] Respiratory rate 2023-10-04 00:00:00 18 /min [facility] Oxygen saturation in Arterial blood by Pulse oximetry 2023-10-04 00:00:00 96 /min [facility] Body temperature 2023-10-03 21:06:[address] [facility] Body height 2023-10-03 21:06:[address] [facility] Body weight 2023-10-03 21:06:[address] [facility] BMI 2023-10-03 21:06:00 57.41 kg/m2 [facility] Systolic blood pressure 2023-05-07 03:00:00 145 mm[Hg] [facility] Diastolic blood pressure 2023-05-07 03:00:00 87 mm[Hg] [facility] Heart rate 2023-05-07 03:00:00 85 /min [facility] Respiratory rate 2023-05-07 03:00:00 16 /min [facility] Oxygen saturation in Arterial blood by Pulse oximetry 2023-05-07 03:00:00 97 /min [facility] Body temperature 2023-05-06 23:18:[address] [facility] Body height 2023-05-06 23:18:[address] [facility] Body weight 2023-05-06 23:18:[address] [facility] BMI 2023-05-06 23:18:00 57.41 kg/m2 [facility] Body temperature 2023-04-30 19:18:[address] [facility] Heart rate 2023-04-30 13:37:00 72 /min [facility] Respiratory rate 2023-04-30 13:37:00 16 /min [facility] Body height 2023-04-30 13:37:[address] [facility] Body weight 2023-04-30 13:37:[address] [facility] BMI 2023-04-30 13:37:00 58.24 kg/m2 [facility] Systolic blood pressure 2023-04-30 12:22:00 140 mm[Hg] [facility] Diastolic blood pressure 2023-04-30 12:22:00 82 mm[Hg] [facility] Oxygen saturation in Arterial blood by Pulse oximetry 2023-04-30 12:22:00 96 /min [facility] Systolic blood pressure 2023-04-29 05:25:00 142 mm[Hg] [facility] Diastolic blood pressure 2023-04-29 05:25:00 87 mm[Hg] [facility] Heart rate 2023-04-29 05:25:00 81 /min [facility] Body temperature 2023-04-29 05:25:[address] [facility] Respiratory rate 2023-04-29 05:25:00 16 /min [facility] Oxygen saturation in Arterial blood by Pulse oximetry 2023-04-29 05:25:00 93 /min [facility] Body height 2023-04-28 13:19:[address] [facility] Body weight 2023-04-28 13:19:[address] [facility] BMI 2023-04-28 13:19:00 58.24 kg/m2 [facility] Systolic blood pressure 2023-04-25 18:56:00 133 mm[Hg] [facility] Diastolic blood pressure 2023-04-25 18:56:00 81 mm[Hg] [facility] Heart rate 2023-04-25 18:56:00 86 /min [facility] Respiratory rate 2023-04-25 18:56:00 18 /min [facility] Oxygen saturation in Arterial blood by Pulse oximetry 2023-04-25 18:56:00 98 /min [facility] Body temperature 2023-04-25 18:26:[address] [facility] Body height 2023-04-25 16:53:[address] [facility] Body weight 2023-04-25 16:53:[address] [facility] BMI 2023-04-25 16:53:00 58.24 kg/m2 [facility] Systolic blood pressure 2023-04-09 00:03:00 172 mm[Hg] [facility] Diastolic blood pressure 2023-04-09 00:03:00 102 mm[Hg] [facility] Heart rate 2023-04-09 00:03:00 105 /min [facility] Body temperature 2023-04-09 00:03:[address] [facility] Respiratory rate 2023-04-09 00:03:00 18 /min [facility] Oxygen saturation in Arterial blood by Pulse oximetry 2023-04-09 00:03:00 98 /min [facility] Body height 2023-04-08 21:33:[address] [facility] Body weight 2023-04-08 21:33:[address] [facility] BMI 2023-04-08 21:33:00 59.91 kg/m2 [facility] Systolic blood pressure 2023-03-14 21:55:00 169 mm[Hg] [facility] Diastolic blood pressure 2023-03-14 21:55:00 109 mm[Hg] [facility] Heart rate 2023-03-14 21:55:00 97 /min [facility] Body temperature 2023-03-14 21:55:[address] [facility] Respiratory rate 2023-03-14 21:55:00 20 /min [facility] Body weight 2023-03-14 21:55:[address] [facility] BMI 2023-03-14 21:55:00 59.41 kg/m2 [facility] Oxygen saturation in Arterial blood by Pulse oximetry 2023-03-14 21:55:00 97 /min [facility] Systolic blood pressure 2023-03-13 15:58:00 135 mm[Hg] BP recheck Dr. Smalls notified [facility] Diastolic blood pressure 2023-03-13 15:58:00 91 mm[Hg] BP recheck Dr. Smalls notified [facility] Heart rate 2023-03-13 15:58:00 85 /min [facility] Body temperature 2023-03-13 15:56:[address] [facility] Respiratory rate 2023-03-13 15:56:00 20 /min [facility] Body height 2023-03-13 15:56:[address] [facility] Body weight 2023-03-13 15:56:[address] [facility] BMI 2023-03-13 15:56:00 59.51 kg/m2 [facility] Oxygen saturation in Arterial blood by Pulse oximetry 2023-03-13 15:56:00 96 /min [facility] Systolic blood pressure 2023-03-12 01:00:00 131 mm[Hg] [facility] Diastolic blood pressure 2023-03-12 01:00:00 72 mm[Hg] [facility] Heart rate 2023-03-12 01:00:00 74 /min [facility] Respiratory rate 2023-03-12 01:00:00 18 /min [facility] Oxygen saturation in Arterial blood by Pulse oximetry 2023-03-12 01:00:00 98 /min [facility] Body temperature 2023-03-11 22:41:[address] [facility] Body weight 2023-03-11 22:41:[address] [facility] BMI 2023-03-11 22:41:00 59.57 kg/m2 [facility] Systolic blood pressure 2023-02-26 21:16:00 143 mm[Hg] [facility] Diastolic blood pressure 2023-02-26 21:16:00 97 mm[Hg] [facility] Heart rate 2023-02-26 21:16:00 86 /min [facility] Body temperature 2023-02-26 21:01:[address] [facility] Respiratory rate 2023-02-26 21:01:00 18 /min [facility] Oxygen saturation in Arterial blood by Pulse oximetry 2023-02-26 21:01:00 95 /min [facility] Body weight 2023-02-26 08:15:[address] [facility] BMI 2023-02-26 08:15:00 61.07 kg/m2 [facility] Body height 2023-02-26 01:35:[address] [facility] Systolic blood pressure 2023-02-03 04:00:00 150 mm[Hg] [facility] Diastolic blood pressure 2023-02-03 04:00:00 112 mm[Hg] [facility] Heart rate 2023-02-03 04:00:00 95 /min [facility] Respiratory rate 2023-02-03 04:00:00 20 /min [facility] Oxygen saturation in Arterial blood by Pulse oximetry 2023-02-03 04:00:00 95 /min [facility] Body temperature 2023-02-03 00:27:[address] [facility] Body height 2023-02-03 00:27:[address] [facility] Body weight 2023-02-03 00:27:[address] [facility] BMI 2023-02-03 00:27:00 63.88 kg/m2 [facility] Systolic blood pressure 2022-05-21 18:29:00 154 mm[Hg] [facility] Diastolic blood pressure 2022-05-21 18:29:00 117 mm[Hg] [facility] Heart rate 2022-05-21 18:29:00 106 /min [facility] Body temperature 2022-05-21 18:29:[address] [facility] Respiratory rate 2022-05-21 18:29:00 22 /min [facility] Body height 2022-05-21 18:29:[address] [facility] Body weight 2022-05-21 18:29:[address] [facility] BMI 2022-05-21 18:29:00 58.24 kg/m2 [facility] Oxygen saturation in Arterial blood by Pulse oximetry 2022-05-21 18:29:00 95 /min [facility] Systolic blood pressure 2022-04-23 19:30:00 128 mm[Hg] [facility] Diastolic blood pressure 2022-04-23 19:30:00 85 mm[Hg] [facility] Heart rate 2022-04-23 19:28:00 90 /min [facility] Body temperature 2022-04-23 19:28:[address] [facility] Respiratory rate 2022-04-23 19:28:00 18 /min [facility] Body height 2022-04-23 19:28:[address] [facility] Body weight 2022-04-23 19:28:[address] [facility] BMI 2022-04-23 19:28:00 62.40 kg/m2 [facility] Oxygen saturation in Arterial blood by Pulse oximetry 2022-04-23 19:28:00 98 /min room air [facility] Procedures Procedure Date / Time Performed Performing Clinician Source LIPASE 2024-04-16 01:53:[address] [facility] COMP. METABOLIC PANEL (08882) 2024-04-16 01:53:[address] [facility] CBC WITH DIFF 2024-04-16 01:53:[address] [facility] URINALYSIS 2024-04-16 01:53:[address] [facility] POCT TEST 2024-04-16 01:50:[address] [facility] CT ABDOMEN PELVIS W CONTRAST 2024-04-13 21:44:[address] [facility] POCT TEST 2024-04-13 20:30:[address] [facility] LIPASE 2024-04-13 20:27:[address] [facility] COMP. METABOLIC PANEL ([id number]) 2024-04-13 20:27:[address] [facility] CBC WITH DIFF 2024-04-13 20:27:[address] [facility] URINALYSIS 2024-04-13 20:27:[address] [facility] US DUPLEX VENOUS ARMS BILATE RAL - BY VASCULAR LAB 2024-04-02 20:51:[address] [facility] DUPLEX VENOUS LEGS BILATERAL - BY VASCULAR LAB 2024-04-02 20:51:[address] [facility] URINALYSIS 2024-01-28 01:22:[address] [facility] POCT TEST 2024-01-28 01:22:[address] [facility] CT ABDOMEN PELVIS W CONTRAST 2024-01-28 00:41:[address] [facility] LIPASE 2024-01-27 23:30:[address] [facility] COMP. METABOLIC PANEL ([id number]) 2024-01-27 23:30:[address] [facility] CBC WITH DIFF 2024-01-27 23:30:[address] [facility] TROPONIN I 2023-10-03 21:38:[address] [facility] BASIC METABOLIC PANEL (NA, K , CL, CO2, GLUCOSE, BUN, CREATININE, CA) 2023-10-03 21:38:[address] [facility] CBC WITH DIFF 2023-10-03 21:38:00 Misa [facility] XR CHEST 1 VW 2023-10-03 21:16:[address] [facility] [address] ABDOMEN PELVIS W CONTRAST 2023-05-07 01:53:[address] [facility] POCT TEST 2023-05-06 23:53:[address] [facility] LIPASE 2023-05-06 23:51:[address] [facility] COMP. METABOLIC PANEL ([id number]) 2023-05-06 23:51:[address] [facility] CBC WITH DIFF 2023-05-06 23:51[facility] 2023-05-06 23:51:[address] [facility] ACTIVATED PARTIAL THRMPLAS CARLO 2023-04-27 0 23:51:[address] [facility] URINALYSIS 2023-05-06 23:51:00 [facility] FOR DIAGNOSI S AND TREATMENT 2023-05-06 23:11:21 Doctor Unassigned, [place] [facility] MAGNESIUM 2023-04-30 18:22:[address] [facility] BASIC METABOLIC PANEL (NA, K , CL, CO2, GLUCOSE, BUN, CREATININE, CA) 2023-04-30 18:22:[address] [facility] MAGNESIUM 2023-04-30 18:22:[address] [facility] BASIC METABOLIC PANEL (NA, K , CL, CO2, GLUCOSE, BUN, CREATININE, CA) 2023-04-30 18:22:[address] [facility] CBC WITH DIFF 2023-04-30 10:34:[address] [facility] CBC WITH DIFF 2023-04-30 10:34:00 Aravind [facility] DUPLEX VENOUS ARM LEFT - BY VASCULAR LAB 2023-04-29 16:08:41 Nipglynn [facility] DUPLEX VENOUS ARM LEFT - BY VASCULAR LAB 2023-04-29 16:08:41 Licha [facility] LAPAROSCOPIC ROBOTIC ASSISTE D CHOLECYSTECTOMY 2023-04-29 11:49:00 Violette [facility] LAPAROSCOPIC ROBOTIC ASSISTE D CHOLECYSTECTOMY 2023-04-29 11:49:00 Violette, [facility] PHOSPHORUS 2023-04-29 09:05:00 Nipper [facility] MAGNESIUM 2023-04-29 09:05:00 Nipglynn [facility] HEPATIC FUNCTION PANEL (8007 6) (ALB,T.PRO,BILI T,BU/BC,ALT,AST,ALK PHOS) 2023-04-29 09:05:00 Nipglynn, [facility] CBC WITHOUT DIFF 2023-04-29 09:05:00 Nipper [facility] PHOSPHORUS 2023-04-29 09:05:00 Nipper [facility] MAGNESIUM 2023-04-29 09:05:00 Nipper [facility] HEPATIC FUNCTION PANEL (8007 6) (ALB,T.PRO,BILI T,BU/BC,ALT,AST,ALK PHOS) 2023-04-29 09:05:00 Nipglynn, [facility] CBC WITHOUT DIFF 2023-04-29 09:05:00 Nipper [facility] HB ABO GROUPING 2023-04-28 19:02:00 Niko Evan [facility] HB ABO GROUPING 2023-04-28 19:02:00 Niko Evan [facility] HB ABO GROUPING 2023-04-28 19:02:00 Niko Evan [facility] PHOSPHORUS 2023-04-28 09:26:00 Nipper [facility] MAGNESIUM 2023-04-28 09:26[facility] (8007 6) (ALB,T.PRO,BILI T,BU/BC,ALT,AST,ALK PHOS) 2023-04-28 09:26:00 [facility] BASIC METABOLIC PANEL (NA, K , CL, CO2, GLUCOSE, BUN, CREATININE, CA) 2023-04-28 09:26:00 Nipper, [facility] CBC WITHOUT DIFF 2023-04-28 09:26:00 [facility] PHOSPHORUS 2023-04-28 09:26:00 Nipper, [facility] MAGNESIUM 2023-04-28 09:26:00 [facility] HEPATIC FUNCTION PANEL (8007 6) (ALB,T.PRO,BILI T,BU/BC,ALT,AST,ALK PHOS) 2023-04-28 09:26:00 [facility] BASIC METABOLIC PANEL (NA, K , CL, CO2, GLUCOSE, BUN, CREATININE, CA) 2023-04-28 09:26:00 [facility] CBC WITHOUT DIFF 2023-04-28 09:26:00 Nipper, [facility] PHOSPHORUS 2023-04-28 09:26:00 Nipper, [facility] MAGNESIUM 2023-04-28 09:26:00 [facility] HEPATIC FUNCTION PANEL (8007 6) (ALB,T.PRO,BILI T,BU/BC,ALT,AST,ALK PHOS) 2023-04-28 09:26:00 Nipper, [facility] BASIC METABOLIC PANEL (NA, K , CL, CO2, GLUCOSE, BUN, CREATININE, CA) 2023-04-28 09:26:00 Nipper, [facility] CBC WITHOUT DIFF 2023-04-28 09:26:00 Nipper, [facility] PHOSPHORUS 2023-04-27 10:46:00 Nipper, [facility] MAGNESIUM 2023-04-27 10:46:00 Nipper, [facility] HEPATIC FUNCTION PANEL (8007 6) (ALB,T.PRO,BILI T,BU/BC,ALT,AST,ALK PHOS) 2023-04-27 10:46:00 [facility] BASIC METABOLIC PANEL (NA, K , CL, CO2, GLUCOSE, BUN, CREATININE, CA) 2023-04-27 10:46:00 Nipper, [facility] CBC WITHOUT DIFF 2023-04-27 10:46:00 Nipper, [facility] PHOSPHORUS 2023-04-27 10:46:00 Nipper, [facility] MAGNESIUM 2023-04-27 10:46:00 [facility] HEPATIC FUNCTION PANEL (8007 6) (ALB,T.PRO,BILI T,BU/BC,ALT,AST,ALK PHOS) 2023-04-27 10:46:00 [facility] BASIC METABOLIC PANEL (NA, K , CL, CO2, GLUCOSE, BUN, CREATININE, CA) 2023-04-27 10:46:00 Nipper, [facility] CBC WITHOUT DIFF 2023-04-27 10:46:00 Nipper, [facility] PHOSPHORUS 2023-04-27 10:46:00 Nipper, [facility] MAGNESIUM 2023-04-27 10:46:00 [facility] HEPATIC FUNCTION PANEL (8007 6) (ALB,T.PRO,BILI T,BU/BC,ALT,AST,ALK PHOS) 2023-04-27 10:46:00 Nipper, [facility] BASIC METABOLIC PANEL (NA, K , CL, CO2, GLUCOSE, BUN, CREATININE, CA) 2023-04-27 10:46:00 Nipper, [facility] CBC WITHOUT DIFF 2023-04-27 10:46:00 Nipper, [facility] PHOSPHORUS 2023-04-26 10:34:00 Nipper, [facility] LIPASE 2023-04-26 10:34:00 [facility] MAGNESIUM 2023-04-26 10:34:00 [facility] (8007 6) (ALB,T.PRO,BILI T,BU/BC,ALT,AST,ALK PHOS) 2023-04-26 10:34:00 Nipper, [facility] BASIC METABOLIC PANEL (NA, K , CL, CO2, GLUCOSE, BUN, CREATININE, CA) 2023-04-26 10:34:00 Nipper, [facility] CBC WITHOUT DIFF 2023-04-26 10:34:00 Nipper, [facility] PHOSPHORUS 2023-04-26 10:34:00 Nipper, [facility] LIPASE 2023-04-26 10:34:00 [facility] 10:34[facility]00 [facility] (8007 6) (ALB,T.PRO,BILI T,BU/BC,ALT,AST,ALK PHOS) 2023-04-26 10:34:00 Nipper, [facility] BASIC METABOLIC PANEL (NA, K , CL, CO2, GLUCOSE, BUN, CREATININE, CA) 2023-04-26 10:34:00 Nipper, [facility] CBC WITHOUT DIFF 2023-04-26 10:34:00 Nipglynn [facility] PHOSPHORUS 2023-04-26 10:34:00 Nipper, [facility] LIPASE 2023-04-26 10:34:00 [facility]-26 10:34:00 Nipper, [facility] HEPATIC FUNCTION PANEL (8007 6) (ALB,T.PRO,BILI T,BU/BC,ALT,AST,ALK PHOS) 2023-04-26 10:34:00 Nipper, [facility] BASIC METABOLIC PANEL (NA, K , CL, CO2, GLUCOSE, BUN, CREATININE, CA) 2023-04-26 10:34:00 Nipper, [facility] CBC WITHOUT DIFF 2023-04-26 10:34:00 Ron Hurt [facility] SURGICAL PATHOLOGY EXAM 2023-04-25 18:13:00 [facility] 2023-04-25 18:13:00 Jennifer [facility] ESOPHAGOGASTRODUODENOSCOPY 2023-04-25 17:40:00 Jennifer [facility] ESOPHAGOGASTRODUODENOSCOPY 2023-04-25 17:40:00 Jennifer [facility] EGD (ENDO) 2023-04-25 16:55:[facility]25 16:55[facility] 2023-04-25 16:55:[address] [facility] PHOSPHORUS 2023-04-25 10:33:00 Licha [facility] MAGNESIUM 2023-04-25 10:33:00 Licha [facility] HEPATIC FUNCTION PANEL (8007 6) (ALB,T.PRO,BILI T,BU/BC,ALT,AST,ALK PHOS) 2023-04-25 10:33:00 Licha [facility] BASIC METABOLIC PANEL (NA, K , CL, CO2, GLUCOSE, BUN, CREATININE, CA) 2023-04-25 10:33:00 Licha [facility] CBC WITHOUT DIFF 2023-04-25 10:33:00 Licha [facility] PHOSPHORUS 2023-04-25 10:33:00 Licha [facility] MAGNESIUM 2023-04-25 10:33:00 Licah [facility] HEPATIC FUNCTION PANEL (8007 6) (ALB,T.PRO,BILI T,BU/BC,ALT,AST,ALK PHOS) 2023-04-25 10:33:00 Licha [facility] BASIC METABOLIC PANEL (NA, K , CL, CO2, GLUCOSE, BUN, CREATININE, CA) 2023-04-25 10:33:00 Nipglynn, [facility] CBC WITHOUT DIFF 2023-04-25 10:33:00 Nipper, [facility] PHOSPHORUS 2023-04-25 10:33:00 Nipper, [facility] MAGNESIUM 2023-04-25 10:33:00 [facility] HEPATIC FUNCTION PANEL (8007 6) (ALB,T.PRO,BILI T,BU/BC,ALT,AST,ALK PHOS) 2023-04-25 10:33:00 [facility] BASIC METABOLIC PANEL (NA, K , CL, CO2, GLUCOSE, BUN, CREATININE, CA) 2023-04-25 10:33:00 Nipglynn, [facility] CBC WITHOUT DIFF 2023-04-25 10:33:00 [facility] ENDOSCOPY PROCEDURE DOCUMENTATION 04-25 05:01:00 Doctor Unassigned, [place] [facility] ENDOSCOPY PROCEDURE DOCUMENTATION 04-25 05:01:00 Doctor Unassigned, [place] [facility] ENDOSCOPY PROCEDURE DOCUMENTATION 04-25 05:01:00 Doctor Unassigned, [place] [facility] POCT TEST 2023-04-25 00:00:00 Dottie [facility] POCT TEST 2023-04-25 00:00:00 Dottie [facility] POCT TEST 2023-04-25 00:00:00 Dottie [facility] PHOSPHORUS 2023-04-24 10:22:00 Nipper, [facility] MAGNESIUM 2023-04-24 10:22:00 Nipper, [facility] HEPATIC FUNCTION PANEL (8007 6) (ALB,T.PRO,BILI T,BU/BC,ALT,AST,ALK PHOS) 2023-04-24 10:22:00 [facility] BASIC METABOLIC PANEL (NA, K , CL, CO2, GLUCOSE, BUN, CREATININE, CA) 2023-04-24 10:22:00 Nipper, [facility] CBC WITHOUT DIFF 2023-04-24 10:22:00 Nipper, [facility] PHOSPHORUS 2023-04-24 10:22:00 Nipper, [facility] MAGNESIUM 2023-04-24 10:22:00 Nipper, [facility] HEPATIC FUNCTION PANEL (8007 6) (ALB,T.PRO,BILI T,BU/BC,ALT,AST,ALK PHOS) 2023-04-24 10:22:00 Nipper, [facility] BASIC METABOLIC PANEL (NA, K , CL, CO2, GLUCOSE, BUN, CREATININE, CA) 2023-04-24 10:22:00 Nipper, [facility] CBC WITHOUT DIFF 2023-04-24 10:22:00 Nipper, [facility] PHOSPHORUS 2023-04-24 10:22:00 Nipper, [facility] MAGNESIUM 2023-04-24 10:22:00 Nipper, [facility] HEPATIC FUNCTION PANEL (8007 6) (ALB,T.PRO,BILI T,BU/BC,ALT,AST,ALK PHOS) 2023-04-24 10:22:00 Nipper, [facility] BASIC METABOLIC PANEL (NA, K , CL, CO2, GLUCOSE, BUN, CREATININE, CA) 2023-04-24 10:22:00 Nipper, [facility] CBC WITHOUT DIFF 2023-04-24 10:22:00 Nipper, [facility] PHOSPHORUS 2023-04-23 09:58:00 Nipper, [facility] MAGNESIUM 2023-04-23 09:58:00 Nipper, [facility] HEPATIC FUNCTION PANEL (8007 6) (ALB,T.PRO,BILI T,BU/BC,ALT,AST,ALK PHOS) 2023-04-23 09:58:00 Nipper, [facility] BASIC METABOLIC PANEL (NA, K , CL, CO2, GLUCOSE, BUN, CREATININE, CA) 2023-04-23 09:58:00 Nipper, [facility] CBC WITHOUT DIFF 2023-04-23 09:58:00 Nipper, [facility] PHOSPHORUS 2023-04-23 09:58:00 Nipper, [facility] MAGNESIUM 2023-04-23 09:58:00 Nipper, [facility] HEPATIC FUNCTION PANEL (8007 6) (ALB,T.PRO,BILI T,BU/BC,ALT,AST,ALK PHOS) 2023-04-23 09:58:00 Nipper, [facility] BASIC METABOLIC PANEL (NA, K , CL, CO2, GLUCOSE, BUN, CREATININE, CA) 2023-04-23 09:58:00 Nipper, [facility] CBC WITHOUT DIFF 2023-04-23 09:58:00 Nipper, [facility] PHOSPHORUS 2023-04-23 09:58:00 Nipper, [facility] MAGNESIUM 2023-04-23 09:58:00 Nipper, [facility] HEPATIC FUNCTION PANEL (8007 6) (ALB,T.PRO,BILI T,BU/BC,ALT,AST,ALK PHOS) 2023-04-23 09:58:00 Nipper, [facility] BASIC METABOLIC PANEL (NA, K , CL, CO2, GLUCOSE, BUN, CREATININE, CA) 2023-04-23 09:58:00 Nipper, [facility] CBC WITHOUT DIFF 2023-04-23 09:58:00 Nipper, [facility] CT ABDOMEN PELVIS W CONTRAST 2023-04-23 01:21:37 Nipper, [facility] CT ABDOMEN PELVIS W CONTRAST 2023-04-23 01:21:37 Nipper, [facility] CT ABDOMEN PELVIS W CONTRAST 2023-04-23 01:21:37 Nipper, [facility] US ABDOMEN LIMITED 2023-04-22 03:10:[address] [facility] US ABDOMEN LIMITED 2023-04-22 03:10:[address] [facility] US ABDOMEN LIMITED 2023-04-22 03:10:[address] [facility] HB ECG ROUTINE & RHYTHM STRIP 2023-04-22 00:59:[address] [facility] HB ECG ROUTINE & RHYTHM STRIP 2023-04-22 00:59:[address] [facility] HB ECG ROUTINE & RHYTHM STRIP 2023-04-22 00:59:[address] [facility] URINALYSIS 2023-04-22 00:31:[address] [facility] URINE DRUG (IMMUNOASSAY) - COMPREHENSIVE DRUG SCREEN W/O REFLEX 2023-04-22 00:31:[address] [facility] URINALYSIS 2023-04-22 00:31:[address] [facility] URINE DRUG (IMMUNOASSAY) - COMPREHENSIVE DRUG SCREEN W/O REFLEX 2023-04-22 00:31:[address] [facility] URINALYSIS 2023-04-22 00:31:[address] [facility] URINE DRUG (IMMUNOASSAY) - COMPREHENSIVE DRUG SCREEN W/O REFLEX 2023-04-22 00:31:[address] [facility] LIPASE 2023-04-21 23:34:[address] [facility] TEST, SERUM 2023-04-21 23:34:[address] [facility] COMP. METABOLIC PANEL ([id number]) 2023-04-21 23:34:[address] [facility] CBC WITH DIFF 2023-04-21 23:34:[address] [facility] LIPASE 2023-04-21 23:34:[address] [facility] TEST, SERUM 2023-04-21 23:34:[address] [facility] COMP. METABOLIC PANEL ([id number]) 2023-04-21 23:34:[address] [facility] CBC WITH DIFF 2023-04-21 23:34:[address] [facility] LIPASE 2023-04-21 23:34:[address] [facility] TEST, SERUM 2023-04-21 23:34:00 [place], [place] [facility] COMP. METABOLIC PANEL ([id number]) 2023-04-21 23:34:[address] [facility] CBC WITH DIFF 2023-04-21 23:34:[address] [facility] CONSENT/REFUSAL FOR DIAGNOSI S AND TREATMENT 2023-04-21 21:17:49 Doctor Unassigned, [place] [facility] CONSENT/REFUSAL FOR DIAGNOSI S AND TREATMENT 2023-04-21 21:17:49 Doctor Unassigned, [place] [facility] CONSENT/REFUSAL FOR DIAGNOSI S AND TREATMENT 2023-04-21 21:17:49 Doctor Unassigned, [place] [facility] ASSIGNMENT OF BENEFITS 2023-04-08 23:48:11 Doctor Unassigned, [place] [facility] CT LUMBAR SPINE WO CONTRAST 2023-04-08 22:48:53 [facility] URINALYSIS 2023-04-08 22:20:00 [facility] CONSENT/REFUSAL FOR DIAGNOSI S AND TREATMENT 2023-04-08 21:27:01 Doctor Unassigned, [place] [facility] COVID-19 (ID NOW RAPID TESTING) 22:00:[address] [facility] CONSENT/REFUSAL FOR DIAGNOSI S AND TREATMENT 2023-03-14 21:53:37 Doctor Unassigned, [place] [facility] DISCLOSURE AND CONSENT, MEDI HARPREET AND SURGICAL PROCEDURES 2023-03-13 05:01:00 Doctor Unassigned, [place] [facility] LIPASE 2023-03-12 00:30:00 [facility] 2023-03-12 00:30:00 [facility] COMP. METABOLIC PANEL (00135) 2023-03-12 00:30:00 [facility] CBC WITH DIFF 2023-03-12 00:30:[address] [facility] URINALYSIS 2023-03-12 00:30:00 [facility] ASSIGNMENT OF BENEFITS 2023-03-11 23:33:23 Doctor Unassigned, [place] [facility] CONSENT/REFUSAL FOR DIAGNOSI S AND TREATMENT 2023-03-11 22:27:28 Doctor Unassigned, [place] [facility] TROPONIN I 2023-02-26 19:05:[address] [facility] HEPATIC FUNCTION PANEL (8007 6) (ALB,T.PRO,BILI T,BU/BC,ALT,AST,ALK PHOS) 2023-02-26 19:05:[address] [facility] US ABDOMEN COMPLETE 2023-02-26 17:32:[address] [facility] TRANSTHORACIC ECHO (TTE) COMPLETE 02-26 13:45:[address] [facility] TROPONIN I 2023-02-26 09:16:[address] [facility] TROPONIN I 2023-02-26 01:13:[address] [facility] URINALYSIS 2023-02-25 22:26:[address] [facility] CT STROKE ANGIOGRAM HEAD 2023-02-25 20:59:[address] [facility] CT STROKE ANGIOGRAM NECK 2023-02-25 20:59:[address] [facility] CT STROKE HEAD WO CONTRAST 2023-02-25 20:46:[address] [facility] TROPONIN I 2023-02-25 20:31:[address] [facility] THYROID STIMULATING HORMONE 2023-02-25 20:31:[address] [facility] BASIC METABOLIC PANEL (NA, K , CL, CO2, GLUCOSE, BUN, CREATININE, CA) 2023-02-25 20:31:[address] [facility] LIPID PANEL (42996)(TOTAL CHOLESTEROL, TRIGLYCERIDES, HDL) 2023-02-25 20:31:[address] [facility] CBC WITHOUT DIFF 2023-02-25 20:31:[address] [facility] PROTHROMBIN TIME / INR 2023-02-25 20:31:[address] [facility] ACTIVATED PARTIAL THRMPLAS CARLO 1 20:31:[address] [facility] CT ABDOMEN PELVIS W CONTRAST 2023-02-03 01:48:[address] [facility] POCT TEST 2023-02-03 00:43:[address] [facility] URINALYSIS 2023-02-03 00:40:[address] [facility] LIPASE 2023-02-03 00:39:[address] [facility] COMP. METABOLIC PANEL (35517) 2023-02-03 00:39:[address] [facility] CBC WITH DIFF 2023-02-03 00:39:[address] [facility] NOTICE OF PRIVACY PRACTICES 2023-02-03 00:17:34 Doctor Unassigned, [place] [facility] CONSENT/REFUSAL FOR DIAGNOSI S AND TREATMENT 2023-02-03 00:14:58 Doctor Unassigned, [place] [facility] COVID-19 (ID NOW RAPID TESTING) 18:42:[address] [facility] CONSENT/REFUSAL FOR DIAGNOSI S AND TREATMENT 2022-05-21 18:23:51 Doctor Unassigned, [place] [facility] COVID-19 (MOLECULAR TESTING NUCLEIC ACID AMPLIFICATION) 2022-04-23 19:40:[address] [facility] LAB ONLY COVID INTERPRETATION 2022-04-23 19:40:[address] [facility] POCT MOLECULAR FLU 2022-04-23 19:35:[address] [facility] ASSIGNMENT OF BENEFITS 2022-03-13 21:28:15 Doctor Unassigned, [place] [facility] DERMATOPATHOLOGY TISSUE EXAM 2021-05-25 00:00:[address] [facility] Encounters Start Date/Time End Date/Time Encounter Type Admission Type Attending Clinicians Care Facility Care Department Encounter ID Source 2023-05-01 10:38:09 Outpatient R SZJM ORTAEN [facility] RFANCHESKA [id number] [facility] 2021-05-29 09:09:24 Emergency [facility] [id number] [facility] 2021-05-28 09:54:12 Outpatient P [facility] FAUSTO [id number] [facility] 2021-05-28 09:46:44 Emergency [facility] [id number] [facility] 2021-05-27 12:42:05 Emergency [facility] [id number] [facility] 2021-05-26 21:03:09 Emergency [facility] [id number] [facility] 2024-05-24 15:30:00 2024-05-24 15:30:00 Outpatient ROSA TREVIZO [facility] [id number] [facility] 2024-04-27 14:00:00 2024-04-27 14:00:00 Outpatient LIANET WOODS CASSIE [facility] [id number] [facility] 2024-04-20 13:30:00 2024-04-20 13:30:00 Outpatient LIANET WOODS CASSIE [facility] [id number] [facility] 2024-04-19 15:00:00 2024-04-19 16:00:00 Office Visit Daqu[facility] 1.2.840.114 350.1.13.10 4.2.7.2.686 [id number] [facility] 2024-04-19 15:00:00 2024-04-19 15:00:00 Outpatient ROSA TREVIZO [facility] [id number] [facility] 2024-04-15 18:48:00 2024-04-16 01:39:00 Emergency X KAYDEN MCDUFFIE LUKE [facility] ERT [id number] [facility] 2024-04-15 18:48:00 2024-04-16 01:39:00 Emergency McduffieKayden Tasha [facility] 1.2.840.114 350.1.13.10 4.2.7.2.686 [id number] [facility] 2024-04-15 11:00:00 2024-04-15 11:00:00 Outpatient ROSA TREVIZO [facility] [id number] [facility] 2024-04-14 12:00:00 2024-04-14 12:00:00 Outpatient R SABINO SIMMONS OGECHUKWU [facility] [id number] [facility] 2024-04-13 14:19:00 2024-04-13 19:50:00 Emergency X NADIYA BELLAMY PAMALA [facility] ERT [id number] [facility] 2024-04-13 14:19:00 2024-04-13 19:50:00 Emergency Nadiya Bellamy [facility] 1.2.840.114 350.1.13.10 4.2.7.2.686 [id number] [facility] 2024-04-13 00:00:00 2024-04-13 10:19:44 Telephone [facility] 1.2.840.114 350.1.13.10 4.2.7.2.686 [id number] [facility] 2024-04-06 14:00:00 2024-04-06 14:00:00 Outpatient ROSA TREVIZO [facility] [id number] [facility] 2024-04-02 14:50:38 2024-04-02 23:59:00 Outpatient R SABINO SIMMONS OGECHUKWU [facility] [id number] [facility] 2024-04-02 14:50:38 2024-04-02 23:59:00 Hospital Encounter [facility] 1.2.840.114 350.1.13.10 4.2.7.2.686 [id number] [facility] 2024-04-02 14:50:30 2024-04-02 23:59:00 Hospital Encounter [facility]ino [facility] 1.2.840.114 350.1.13.10 4.2.7.2.686 [id number] [facility] 2024-02-19 00:00:00 2024-03-27 18:26:23 Patient Secure Msg Doctor Unassigned, [place] Doctor Unassigned, [place] [facility] 1.2840.114 350.1.13.10 4.2.7.2.686 [id number] [facility] 2024-02-19 00:00:00 2024-03-27 18:25:40 Patient Secure Msg Doctor Unassigned, [place] Doctor Unassigned, [place] [facility] 1.2840.114 350.1.13.10 4.2.7.2.686 [id number] [facility] 2024-03-24 14:45:00 2024-03-24 14:45:00 Outpatient R LEA BARRETO [facility] [id number] [facility] 2024-03-23 00:00:00 2024-03-23 14:05:24 Telephone Violet Zuluaga [facility] [place] [facility] 1.2.114 350.1.13.10 4.2.7.2.686 [id number] [facility] 2024-03-22 09:15:00 2024-03-22 09:58:36 Outpatient R VIOLET ZULUAGA [facility] [id number] [facility] 2024-03-22 09:15:00 2024-03-22 09:58:36 Office Visit Violet Zuluaga Myriam [facility] 1..840.114 350.1.13.10 4.2.7.2.686 [id number] [facility] 2024-03-17 15:15:00 2024-03-17 15:15:00 Outpatient R LESLYE COPE CRAIG [facility] [id number] [facility] 2024-03-15 08:15:00 2024-03-15 08:15:00 Outpatient R MARGARETH VIOLET [facility] [id number] [facility] 2024-03-08 13:00:00 2024-03-08 13:00:00 Outpatient R SABINO SIMMONS OGECHUKWU [facility] [id number] [facility] 2024-02-26 00:00:00 2024-03-08 08:12:02 Nurse Triage Tala Elise Teresa D [facility] 1..840.114 350.1.13.10 4.2.7.2.686 [id number] [facility] 2024-02-03 00:00:00 2024-03-06 18:20:22 Patient Secure Msg Doctor Unassigned, [place] Doctor Unassigned, [place] [facility] 1..840.114 350.1.13.10 4.2.7.2.686 [id number] [facility] 2024-03-03 15:15:00 2024-03-03 15:15:00 Outpatient R LESLYE COPE CRAIG [facility] [id number] [facility] 2024-02-18 00:00:00 2024-02-20 17:05:35 Telephone Iris, [facility] BUILDING 1.2.840.114 350.1.13.10 4.2.7.2.686 [id number] [facility] 2024-02-19 00:00:00 2024-02-19 13:43:37 [facility] 1.2.840.114 350.1.13.10 4.2.7.2.686 [id number] [facility] 2024-02-18 13:00:00 2024-02-18 14:25:29 Out[facility] [id number] [facility] 2024-02-18 13:00:00 2024-02-18 14:25:29 Office Visit Sabino Simmons [facility] 1.2.840.114 350.1.13.10 4.2.7.2.686 [id number] [facility] 2024-02-03 11:30:00 2024-02-03 11:30:00 Outpatient R SABINO SIMMONS SABINO [facility] [id number] [facility] 2024-01-28 00:00:00 2024-01-31 16:00:32 Telephone Sabino Simmons [facility] BUILD[facility] 1.2.840.114 350.1.13.10 4.2.7.2.686 [id number] [facility] 2024-01-27 16:16:00 2024-01-27 21:50:00 Emergency X TAYLOR MALCOLM [facility] [id number] [facility] 2024-01-27 16:16:00 2024-01-27 21:50:00 Emergency Taylor [facility] 1.2.840.114 350.1.13.10 4.2.7.2.686 [id number] [facility] 2024-01-26 00:00:00 2024-01-26 09:24:31 Telephone Iris, [facility] 1.2.840.114 350.1.13.10 4.2.7.2.686 [id number] [facility] 2024-01-09 13:30:00 2024-01-09 13:30:00 Outpatient R SABINO SIMMONS OGECHUKWU [facility] [id number] [facility] 2024-01-08 00:00:00 2024-01-08 16:07:59 Case Management Nissa Velasco [facility] BUILDING 1.2.840.114 350.1.13.10 4.2.7.2.686 [id number] [facility] 2024-01-08 15:15:00 2024-01-08 15:15:00 Outpatient R [facility] [id number] [facility] 2023-12-30 13:45:00 2023-12-30 13:45:00 Outpatient R LESLYE COPE CRAIG [facility] [id number] [facility] 2023-12-24 14:30:00 2023-12-24 14:30:00 Outpatient R SABINO SIMMONS OGECHUKWU [facility] [id number] [facility] 2023-12-16 14:30:00 2023-12-16 15:42:50 Outpatient R LESLYE COPE CRAIG [facility] [id number] [facility] 2023-12-16 14:30:00 2023-12-16 15:42:50 Ancillary Visit Gabrielle Medellin Craig L [facility] BUILDING 1.2.840.114 350.1.13.10 4.2.7.2.686 [id number] [facility] 2023-12-01 00:00:00 2023-12-01 13:51:45 Patient Outreach Romina Baker [facility] BUILDING 1.2.840.114 350.1.13.10 4.2.7.2.686 [id number] [facility] 2023-11-28 00:00:00 2023-11-28 00:00:00 Telephone Sabino Simmons [facility] 1.2.840.114 350.1.13.10 4.2.7.2.686 [id number] [facility] 2023-11-26 14:15:00 2023-11-26 14:30:00 Supervisor Agency Appointments Visit 2, Adc Lab Sabino Simmons [facility] BUILDING 1.2.840.114 350.1.13.10 4.2.7.2.686 [id number] [facility] 2023-11-26 13:00:00 2023-11-26 14:10:33 Office Visit Sabino Simmons [facility] BUILDING 1.2.840.114 350.1.13.10 4.2.7.2.686 [id number] [facility] 2023-11-26 13:00:00 2023-11-26 14:10:33 Outpatient R SABINO SIMMONS OGECHUKWU [facility] [id number] [facility] 2023-11-25 13:45:00 2023-11-25 13:45:00 Outpatient R [facility] [id number] [facility] 2023-11-21 13:00:00 2023-11-21 13:00:00 Outpatient R SABINO SIMMONS SABINO [facility] [id number] [facility] 2023-11-17 14:00:00 2023-11-17 14:00:00 Outpatient R SABINO SIMMONS SABINO [facility] [id number] [facility] 2023-11-14 14:00:00 2023-11-14 14:00:00 Outpatient R IRIS SUSANI[place]iaWood SIMMONS SABINO [facility] [id number] [facility] 2023-11-07 13:30:00 2023-11-07 13:30:00 [facility] [id number] [facility] 2023-11-03 13:00:00 2023-11-03 13:00:00 Outpatient R [facility] [id number] [facility] 2023-11-03 09:00:00 2023-11-03 09:00:00 Outpatient R JAVI MCPHERSON [facility] [id number] [facility] 2023-10-20 00:00:00 2023-10-20 00:00:00 Patient Secure Msg Doctor Unassigned, [place] [facility] ..840.114 350.1.13.10 4.2.7.2.686 [id number] [facility] 2023-10-17 13:03:23 2023-10-17 23:59:00 Outpatient REY GUZMANSAY [facility] [id number] [facility] 2023-10-10 15:45:00 2023-10-10 16:00:00 Supervisor Agency Appointments Visit Pcp-Lab Michael Betancur [facility] ..840.114 350.1.13.10 4.2.7.2.686 [id number] [facility] 2023-10-10 14:50:00 2023-10-10 15:47:49 Outpatient R MICHAEL BETANCUR [facility] [id number] [facility] 2023-10-10 14:50:00 2023-10-10 15:47:49 Office Visit Nabila Pedro Michael Betancur [facility] 1.2.840.114 350.1.13.10 4.2.7.2.686 [id number] [facility] 2023-10-03 15:08:00 2023-10-03 18:40:00 Emergency X TAYLOR BYNUM [facility] ERT [id number] [facility] 2023-10-03 15:08:00 2023-10-03 18:40:00 Emergency Alice Pena Whitney [facility] 1.2.840.114 350.1.13.10 4.2.7.2.686 [id number] [facility] 2023-09-29 00:00:00 2023-09-29 00:00:00 Telephone Javi Mcpherson [facility] 1.2.840.114 350.1.13.10 4.2.7.2.686 [id number] [facility] 2023-07-03 11:00:00 2023-07-03 11:00:00 Outpatient R [facility] [id number] [facility] 2023-05-23 09:15:00 2023-05-23 09:15:00 Outpatient R ANTOINETTE MCCULLOUGH [facility] [id number] [facility] 2023-05-21 16:15:00 2023-05-21 16:15:00 Outpatient R ANTOINETTE MCCULLOUGH [facility] [id number] [facility] 2023-05-06 18:19:00 2023-05-06 22:17:00 Emergency X ALICE PENA [facility] ERT [id number] [facility] 2023-05-06 18:19:00 2023-05-06 22:17:00 Emergency Alice Pena [facility] 1.2.840.114 350.1.13.10 4.2.7.2.686 [id number] [facility] 2023-05-01 00:00:00 2023-05-01 00:00:00 Transition of Care Tamie Lolita MORRIS 1.2840.114 350.1.13.10 4.2.7.2.686 [id number] [facility] 2023-04-21 16:49:00 2023-04-30 16:15:00 Outpatient X [facility] [id number] [facility] 2023-04-21 16:49:00 2023-04-30 16:15:00 Hospital Encounter Austin Salomon Sara Michelle [facility] 1.0.114 350.1.13.10 4.2.7.2.686 [id number] [facility] 2023-04-30 00:00:00 2023-04-30 00:00:00 Telephone [facility] 1.840.114 350.1.13.10 4.2.7.2.686 [id number] [facility] 2023-04-29 06:50:00 2023-04-29 09:02:00 Surgery [facility] 1..114 350.1.13.10 4.2.7.2.686 [id number] [facility] 2023-04-25 13:26:00 2023-04-25 14:05:00 Surgery Marcos Rodriguez [facility] 1.20.114 350.1.13.10 4.2.7.2.686 [id number] [facility] 2023-04-24 15:30:00 2023-04-24 15:30:00 Outpatient JANI PARRISH [facility] [id number] [facility] 2023-04-16 10:30:00 2023-04-16 10:30:00 Outpatient JANI PARRISH [facility] [id number] [facility] 2023-04-09 00:00:00 2023-04-09 00:00:00 Patient Secure Msg Doctor Unassigned, [place] [facility] MEDICAL OFFICE BUILDING 1..840.114 350.1.13.10 4.2.7.2.686 [id number] [facility] 2023-04-08 16:34:00 2023-04-08 19:33:00 Emergency X ALBINO SIERRAANASTACIO [facility] ERT [id number] [facility] 2023-04-08 16:34:00 2023-04-08 19:33:00 Emergency Kate Sierra [facility] 1..840.114 350.1.13.10 4.2.7.2.686 [id number] [facility] 2023-04-07 15:00:00 2023-04-07 15:00:00 Outpatient FARIHA AGUIAR HOWARD [facility] [id number] [facility] 2023-03-20 00:00:00 2023-03-20 00:00:00 Patient Secure Msg Doctor Unassigned, [place] [facility] [employer] 1..840.114 350.1.13.10 4.2.7.2.686 [id number] [facility] 2023-03-14 16:57:00 2023-03-14 17:50:00 Emergency X KASSY GUTIERREZ [facility] ERT [id number] [facility] 2023-03-14 16:57:00 2023-03-14 17:50:00 Emergency Kassy Gutierrez [facility] 1.2.840.114 350.1.13.10 4.2.7.2.686 [id number] [facility] 2023-03-13 11:00:00 2023-03-13 11:30:00 [facility] 1.2.840.114 350.1.13.10 4.2.7.2.686 [id number] [facility] 2023-03-13 11:00:00 2023-03-13 11:00:00 Outpatient R DANNY [facility] [id number] [facility] 2023-03-13 00:00:00 2023-03-13 00:00:00 Telephone Tyron Smallsbang [facility] 1.2.840.114 350.1.13.10 4.2.7.2.686 [id number] [facility] 2023-03-13 00:00:00 2023-03-13 00:00:00 Orders Only Doctor Unassigned, [place] [facility] 1.2.840.114 350.1.13.10 4.2.7.2.686 [id number] [facility] 2023-03-11 17:46:00 2023-03-11 20:59:00 Emergency X TALIB MITCHELLANNE [facility] ERT [id number] [facility] 2023-03-11 17:46:00 2023-03-11 20:59:00 Emergency Zeynep Mitchell [facility] 1.2.840.114 350.1.13.10 4.2.7.2.686 [id number] [facility] 2023-02-25 14:43:00 2023-02-26 19:25:00 Outpatient Cecilio PATTON JUSTEN [facility] FRANCHESKA [id number] [facility] 2023-02-25 14:43:00 2023-02-26 19:25:00 Emergency Bairon MeyersJusten [facility] 1.2840.114 350.1.13.10 4.2.7.2.686 [id number] [facility] 2023-02-02 19:28:00 2023-02-02 23:34:00 Emergency X DAMION HAMLIN [facility] ERT [id number] [facility] 2023-02-02 19:28:00 2023-02-02 23:34:00 Emergency Damion Hamlin [facility] 1.2840.114 350.1.13.10 4.2.7.2.686 [id number] [facility] 2022-08-27 11:00:00 2022-08-27 11:00:00 Outpatient JAVI LAGUERRE [facility] [id number] [facility] 2022-06-18 13:00:00 2022-06-18 13:00:00 Outpatient ZEV CH [facility] [id number] [facility] 2022-05-21 13:38:00 2022-05-21 14:10:00 Emergency KASSY GARCIA [facility] ERT [id number] [facility] 2022-05-21 13:38:00 2022-05-21 14:10:00 Emergency Kassy Gutierrez [facility] 1.2840.114 350.1.13.10 4.2.7.2.686 [id number] [facility] 2022-04-24 00:00:00 2022-04-24 00:00:00 Patient Secure Rasta Madrigal [facility] 1.2840.114 350.1.13.10 4.2.7.2.686 [id number] [facility] 2022-04-23 15:30:00 2022-04-23 16:00:00 Office Visit Rasta Anne Alexander [facility] 1.840.114 350.1.13.10 4.2.7.2.686 [id number] [facility] 2022-04-23 15:30:00 2022-04-23 15:30:00 Outpatient PANDA ECHEVARRIA [facility] [id number] [facility] 2022-04-01 00:00:00 2022-04-01 00:00:00 Telephone Javi Mcpherson [facility] 1..114 350.1.13.10 4.2.7.2.686 [id number] [facility] 2022-03-13 16:15:00 2022-03-13 16:30:00 [facility] Only Only[facility] 1..114 350.1.13.10 4.2.7.2.686 [id number] [facility] 2022-03-13 16:15:00 2022-03-13 16:15:00 Outpatient Tasha [facility] [id number] [facility] 2022-03-13 00:00:00 2022-03-13 00:00:00 Orders Only Doctor Unassigned, [place] [facility] 1..114 350.1.13.10 4.2.7.2.686 [id number] [facility] 2022-03-04 10:15:00 2022-03-04 10:15:00 Outpatient JAVI LAGUERRE [facility] [id number] [facility] 2022-01-08 10:30:00 2022-01-08 10:30:00 Outpatient R VIDA JAVI [facility] [id number] [facility] 2021-12-05 19:26:00 2021-12-05 20:13:00 Emergency X SAYDA ZAFAR [facility] [id number] [facility] 2021-12-05 19:26:00 2021-12-05 20:13:00 Emergency Sayda Zafar R [facility] 1.84.114 350.1.13.10 4.2.7.2.686 [id number] [facility] 2021-12-05 19:26:00 2021-12-05 20:13:00 Emergency X SAYDA ZAFAR [facility] [id number] [facility] 2021-09-25 15:10:00 2021-09-25 15:10:00 Outpatient R UNKNOWN, ATTENDING [facility] [id number] [facility] 2021-09-25 15:10:00 2021-09-25 15:10:00 Outpatient R UNKNOWN, ATTENDING [facility] [id number] [facility] 2021-08-22 00:00:00 2021-08-22 00:00:00 Patient Secure Msg Randy Chauhan [facility] 1.840.114 350.1.13.10 4.2.7.2.686 [id number] [facility] 2021-08-22 00:00:00 2021-08-22 00:00:00 Patient Secure Msg Doctor Unassigned, [place] [facility] 1.84.114 350.1.13.10 4.2.7.2.686 [id number] [facility] 2021-08-21 15:13:16 2021-08-21 23:59:00 Outpatient R BRANDON RIVERA [facility] [id number] [facility] 2021-08-21 15:13:16 2021-08-21 23:59:00 Hospital Encounter Brandon Rivera [facility] 1.2840.114 350.1.13.10 4.2.7.2.686 [id number] [facility] 2021-08-21 15:13:16 2021-08-21 23:59:00 Outpatient R BRANDON RIVERA [facility] [id number] [facility] 2021-08-21 15:30:00 2021-08-21 15:45:00 Supervisor Agency Appointments Visit [facility] [facility] 1.2840.114 350.1.13.10 4.2.7.2.686 [id number] [facility] 2021-08-21 14:20:00 2021-08-21 15:05:01 Outpatient Tasha VAZQUEZ, ATTENDING [facility] [id number] [facility] 2021-08-21 14:20:00 2021-08-21 15:05:01 Office Visit Randy Chauhan, Attending Brandon Rivera [facility] 1.20.114 350.1.13.10 4.2.7.2.686 [id number] [facility] 2021-08-21 14:20:00 2021-08-21 15:05:01 Outpatient R BRANDON RIVERA [facility] [id number] [facility] 2021-08-15 00:00:00 2021-08-15 00:00:00 [facility] 1..114 350.1.13.10 4.2.7.2.686 [id number] [facility] 2021-08-06 00:00:00 2021-08-06 00:00:00 Refill [facility] 1.2840.114 350.1.13.10 4.2.7.2.686 [id number] [facility] 2021-07-30 10:30:00 2021-07-30 10:30:00 Outpatient JAVI LAGUERRE [facility] [id number] [facility] 2021-07-26 00:00:00 2021-07-26 00:00:00 Randy Sotelo [facility] 1.2.840.114 350.1.13.10 4.2.7.2.686 [id number] [facility] 2021-07-25 10:40:00 2021-07-25 10:40:00 Outpatient SCARLET VELASQUEZ [facility] [id number] [facility] 2021-06-26 16:00:00 2021-06-26 16:00:00 Outpatient R [facility] [id number] [facility] 2021-06-26 16:00:00 2021-06-26 16:00:00 Outpatient R [facility] [id number] [facility] 2021-06-26 14:20:00 2021-06-26 14:20:00 Outpatient ELENA WILKS [facility] [id number] [facility] 2021-06-19 10:00:00 2021-06-19 10:00:00 Outpatient SELINA CASTANO [facility] [id number] [facility] 2021-06-19 10:00:00 2021-06-19 10:00:00 Outpatient R SELINA BUCKLEY [facility] [id number] [facility] 2021-06-12 14:15:00 2021-06-12 14:15:00 Outpatient R CASSIUS ZULUAGA [facility] [id number] [facility] 2021-06-11 11:00:00 2021-06-11 11:00:00 Outpatient BRANDON CAREY [facility] [id number] [facility] 2021-06-11 00:00:00 2021-06-11 00:00:00 Outpatient BRANDON CAREY [facility] [id number] [facility] 2021-06-11 00:00:00 2021-06-11 00:00:00 Outpatient BRANDON CAREY [facility] [id number] [facility] 2021-06-11 00:00:00 2021-06-11 00:00:00 Outpatient BRANDON CAREY [facility] [id number] [facility] 2021-06-08 09:30:00 2021-06-08 14:17:29 Outpatient Tasha HERRERA CAROLYN [facility] [id number] [facility] 2021-06-08 09:41:59 2021-06-08 09:56:59 Nurse Visit Visit, [facility] Dermatology Nurse Carolyn Herrera [facility] 1.840.114 350.1.13.10 4.2.7.2.686 [id number] [facility] 2021-06-08 09:30:00 2021-06-08 09:30:00 Outpatient CAROLYN MONSALVE [facility] [id number] [facility] 2021-06-08 09:30:00 2021-06-08 09:30:00 Outpatient CAROLYN MONSALVE [facility] [id number] [facility] 2021-06-08 00:00:00 2021-06-08 00:00:00 Telephone Javi Mcpherson [facility] 1.840.114 350.1.13.10 4.2.7.2.686 [id number] [facility] 2021-06-06 10:44:36 2021-06-06 11:41:03 Office Visit Randy Chauhan [place] [facility] 1..840.114 350.1.13.10 4.2.7.2.686 [id number] [facility] 2021-06-06 10:40:00 2021-06-06 11:41:03 Outpatient R ELVI MAYA [facility] [id number] [facility] 2021-06-06 00:00:00 2021-06-06 00:00:00 Orders Only Doctor Unassigned, [place] [facility] 1.2.840.114 350.1.13.10 4.2.7.2.686 [id number] [facility] 2021-05-31 00:00:00 2021-05-31 00:00:00 Patient Secure Msg Doctor Unassigned, [place] [facility] 1.2.840.114 350.1.13.10 4.2.7.2.686 [id number] [facility] 2021-05-28 00:00:00 2021-05-28 00:00:00 Patient Secure Msg Randy Chauhan [facility] 1.2.840.114 350.1.13.10 4.2.7.2.686 [id number] [facility] 2021-05-25 14:56:53 2021-05-25 23:59:00 Hospital Encounter Radiology [facility] 1.2.840.114 350.1.13.10 4.2.7.2.686 [id number] [facility] 2021-05-25 14:51:00 2021-05-25 15:06:00 Supervisor Agency Appointments Visit Pcp-Lab Brandon Rivera [facility] 1.2.840.114 350.1.13.10 4.2.7.2.686 [id number] [facility] 2021-05-25 14:56:53 2021-05-25 14:56:53 Outpatient R RADIOLOGY [facility] [id number] [facility] 2021-05-25 14:10:00 2021-05-25 14:51:51 Outpatient R UNKNOWN, ATTENDING [facility] [id number] [facility] 2021-05-25 14:10:00 2021-05-25 14:51:51 Outpatient R BRANDON RIVERA [facility] [id number] [facility] 2021-05-25 13:34:56 2021-05-25 14:51:51 Office Visit Randy Chauhan, Attending [facility] 1.840.114 350.1.13.10 4.2.7.2.686 [id number] [facility] 2021-05-25 13:34:56 2021-05-25 14:51:51 Office Visit Randy Chauhan, Attending [facility] 1.840.114 350.1.13.10 4.2.7.2.686 [id number] [facility] 2021-05-25 09:00:00 2021-05-25 11:35:22 Outpatient R JAVI MCPHERSON [facility] [id number] [facility] 2021-05-25 09:00:00 2021-05-25 11:35:22 Outpatient R JAVI MCPHERSON [facility] [id number] [facility] 2021-05-25 09:00:00 2021-05-25 11:35:22 Office Visit Javi Mcpherson [facility] .840.114 350.1.13.10 4.2.7.2.686 [id number] [facility] 2021-05-25 08:38:11 2021-05-25 11:35:22 Office Visit Javi Mcpherson [facility] 1.840.114 350.1.13.10 4.2.7.2.686 [id number] [facility] 2021-05-25 08:38:11 2021-05-25 11:35:22 Office Visit Javi Mcpherson [facility] 1..114 350.1.13.10 4.2.7.2.686 [id number] [facility] 2021-05-25 09:00:00 2021-05-25 09:00:00 Outpatient R JAVI MCPHERSON [facility] [id number] [facility] 2021-05-23 10:40:00 2021-05-23 10:40:00 Outpatient R UNKNOWN, ATTENDING [facility] [id number] [facility] 2021-05-23 10:40:00 2021-05-23 10:40:00 Outpatient R UNKNOWN, ATTENDING [facility] [id number] [facility] 2021-05-19 17:42:00 2021-05-19 20:16:00 Emergency Lauri Curry S [facility] 1..114 350.1.13.10 4.2.7.2.686 [id number] [facility] 2021-05-19 17:42:00 2021-05-19 20:16:00 Emergency X LAURI CURRY [facility] ERT [id number] [facility] 2021-05-18 13:10:00 2021-05-18 13:10:00 Outpatient R UNKNOWN, ATTENDING [facility] [id number] [facility] 2021-05-16 13:45:00 2021-05-16 13:45:00 Outpatient R SIENNA RUFF [facility] [id number] [facility] 2021-04-23 14:52:31 2021-04-23 15:49:11 Routine Visit Selina uBckley [facility] 1..114 350.1.13.10 4.2.7.2.686 [id number] [facility] 2021-04-23 11:19:34 2021-04-23 15:47:11 Office Visit Javi Mcpherson [facility] 1..114 350.1.13.10 4.2.7.2.686 [id number] [facility] 2021-04-23 11:45:00 2021-04-23 11:45:00 Outpatient R JAVI MCPHERSON [facility] [id number] [facility] 2021-04-06 14:35:35 2021-04-06 15:03:54 Nurse Visit Visit/Fp, [facility] 1.0.114 350.1.13.10 4.2.7.2.686 [id number] [facility] 2021-04-06 14:30:00 2021-04-06 15:03:54 Outpatient R SELINA BUCKLEY [facility] [id number] [facility] 2021-04-06 14:30:00 2021-04-06 14:30:00 Outpatient R [facility] [id number] [facility] 2021-03-27 15:30:00 2021-03-30 14:00:00 Inpatient P LYNNE [facility] [id number] [facility] 2021-03-27 15:30:00 2021-03-30 14:00:00 Hospital Encounter Abram Lynne [facility] 1.2840.114 350.1.13.10 4.2.7.2.686 [id number] [facility] 2021-03-27 19:00:00 2021-03-27 21:05:00 Surgery Herminio Isaac [facility] 1.2840.114 350.1.13.10 4.2.7.2.686 [id number] [facility] 2021-03-27 15:30:00 2021-03-27 15:30:00 Outpatient P GHASSAN [facility] [id number] [facility] 2021-03-27 14:09:50 2021-03-27 15:22:03 Routine Visit [facility] 1..114 350.1.13.10 4.2.7.2.686 [id number] [facility] 2021-03-27 14:15:00 2021-03-27 14:15:00 Outpatient [facility] [id number] [facility] 2021-03-27 00:00:00 2021-03-27 00:00:00 Orders Only Doctor Unassigned, [place] [facility] 1..114 350.1.13.10 4.2.7.2.686 [id number] [facility] 2021-03-21 14:30:00 2021-03-21 14:30:00 Outpatient R [facility] [id number] [facility] 2021-03-16 00:00:00 2021-03-16 00:00:00 Patient Secure Msg [facility] 1..114 350.1.13.10 4.2.7.2.686 [id number] [facility] 2021-03-15 00:00:00 2021-03-15 00:00:00 Cristina Wallace [facility] 1..114 350.1.13.10 4.2.7.2.686 [id number] [facility] 2021-03-12 15:12:14 2021-03-12 16:00:23 Routine Visit [facility] 1..114 350.1.13.10 4.2.7.2.686 [id number] [facility] 2021-03-12 15:45:00 2021-03-12 15:45:00 Outpatient R [facility] [id number] [facility] 2021-03-03 00:00:00 2021-03-03 00:00:00 Patient Secure Msg Doctor Unassigned, [place] [facility] 1.0.114 350.1.13.10 4.2.7.2.686 [id number] [facility] 2021-03-01 00:00:00 2021-03-01 00:00:00 Telephone Fidel [facility] 1.0.114 350.1.13.10 4.2.7.2.686 [id number] [facility] 2021-02-28 00:00:00 2021-02-28 00:00:00 Nurse Triage Kala Roy [facility] 1..114 350.1.13.10 4.2.7.2.686 [id number] [facility] 2021-02-27 00:00:00 2021-02-27 [facility]:00[facility].114 350.1.13.10 4.2.7.2.686 [id number] [facility] 2021-02-27 00:00:00 2021-02-27 00:00:00 [facility] 1.0.114 350.1.13.10 4.2.7.2.686 [id number] [facility] 2021-02-26 15:30:00 2021-02-26 15:49:52 Outpatient R SELINA BUCKLEY [facility] [id number] [facility] 2021-02-26 15:22:26 2021-02-26 15:49:52 Routine Visit Selina Buckley [facility] 1..114 350.1.13.10 4.2.7.2.686 [id number] [facility] 2021-02-26 15:30:00 2021-02-26 15:30:00 Outpatient R ALY BUCKLEYANA [facility] [id number] [facility] 2021-02-26 15:30:00 2021-02-26 15:30:00 Outpatient Tasha BUCKLEY SELINA [facility] [id number] [facility] 2021-02-20 14:00:00 2021-02-20 14:00:00 Outpatient R FIDEL CRISTINA [facility] [id number] [facility] 2021-02-20 14:00:00 2021-02-20 14:00:00 Outpatient R FIDEL CRISTINA [facility] [id number] [facility] 2021-02-20 00:00:00 2021-02-20 00:00:00 Telephone Cristina Parra [facility] 1.840.114 350.1.13.10 4.2.7.2.686 [id number] [facility] 2021-02-15 14:00:00 2021-02-15 14:00:00 Outpatient DASH SPRINGER [facility] [id number] [facility] 2021-02-15 13:29:53 2021-02-15 13:44:53 Office Visit Dash Malcolm [facility] 1..840.114 350.1.13.10 4.2.7.2.686 [id number] [facility] 2021-02-14 13:51:00 2021-02-14 21:15:00 Hospital Encounter Hakeem Ondina Bang [facility] 1..840.114 350.1.13.10 4.2.7.2.686 [id number] [facility] 2021-02-14 13:51:00 2021-02-14 21:15:00 Outpatient P ADUMONDINA [facility] [id number] [facility] 2021-02-14 13:51:00 2021-02-14 21:15:00 Outpatient P ADUM, ONDINA [facility] [id number] [facility] 2021-02-14 00:00:00 2021-02-14 00:00:00 Orders Only Doctor Unassigned, [place] [facility] 1.0.114 350.1.13.10 4.2.7.2.686 [id number] [facility] 2021-02-07 00:00:00 2021-02-07 00:00:00 Refill Cristina Parra [facility] ENVIRONMENTAL HEALTH NURSE [facility] & [facility] 1..114 350.1.13.10 4.2.7.2.686 [id number] [facility] 2021-02-06 07:45:43 2021-02-06 08:00:43 Supervisor Agency Appointments Visit Lab, [facility] Mili iVllegas [facility] ENVIRONMENTAL HEALTH NURSE [facility]NAL & [facility]ILD [facility] 1..114 350.1.13.10 4.2.7.2.686 [id number] [facility] 2021-02-06 08:00:00 2021-02-06 08:00:00 Outpatient MILI COLLAZO [facility] [id number] [facility] 2021-02-06 08:00:00 2021-02-06 07:58:12 Outpatient MILI COLLAZO [facility] [id number] [facility] 2021-02-05 13:00:54 2021-02-05 15:47:28 Routine Visit Cristina Parra [facility] 1..114 350.1.13.10 4.2.7.2.686 [id number] [facility] 2021-02-05 13:00:00 2021-02-05 13:00:00 Outpatient R MARLYN PARRARIELLE [facility] [id number] [facility] 2021-02-02 00:00:00 2021-02-02 00:00:00 [facility]114 350.1.13.10 4.2.7.2.686 [id number] [facility] 2021-01-31 11:00:00 2021-01-31 11:00:00 Outpatient [facility] [id number] [facility] 2021-01-25 00:00:00 2021-01-25 00:00:00 Case Management Fidel [facility] ENVIRONMENTAL HEALTH NURSE [facility] 1.84.114 350.1.13.10 4.2.7.2.686 [id number] [facility] 2021-01-24 08:26:00 2021-01-24 08:33:08 Supervisor Agency Appointments Visit Lab, [facility] Mili Villegas [facility] ENVIRONMENTAL HEALTH NURSE [facility]NAL [facility] 1.84.114 350.1.13.10 4.2.7.2.686 [id number] [facility] 2021-01-24 08:30:00 2021-01-24 08:30:00 Outpatient MILI COLLAZO [facility] [id number] [facility] 2021-01-19 14:00:00 2021-01-19 14:00:00 Outpatient R [facility] [id number] [facility] 2021-01-17 15:24:33 2021-01-17 16:07:47 Routine Visit Fidel [facility] 1..114 350.1.13.10 4.2.7.2.686 [id number] [facility] 2021-01-17 15:00:00 2021-01-17 15:00:00 Outpatient R CRISTINA PARRA [facility] [id number] [facility] 2021-01-17 00:00:00 2021-01-17 00:00:00 Orders Only Doctor Unassigned, [place] [facility] 1..114 350.1.13.10 4.2.7.2.686 [id number] [facility] 2020-12-29 14:22:20 2020-12-29 14:54:37 Routine Visit Franny Bustillo [facility] 1..114 350.1.13.10 4.2.7.2.686 [id number] [facility] 2020-12-29 13:45:00 2020-12-29 13:45:00 Outpatient SELINA CASTANO [facility] [id number] [facility] 2020-12-11 14:34:29 2020-12-11 15:29:17 Supervisor Agency Appointments Visit Ultrasound, Herminio Suarez [facility] ENVIRONMENTAL HEALTH NURSE [facility] 1.840.114 350.1.13.10 4.2.7.2.686 [id number] [facility] 2020-12-11 14:45:00 2020-12-11 14:45:00 Outpatient P [facility] [id number] [facility] 2020-12-04 00:00:00 2020-12-04 00:00:00 Telephone Cristina Parra [facility] 1..114 350.1.13.10 4.2.7.2.686 [id number] [facility] 2020-12-03 00:00:00 2020-12-03 00:00:00 Refill Fidel [facility] 1.2840.114 350.1.13.10 4.2.7.2.686 [id number] [facility] 2020-12-01 15:38:20 2020-12-01 16:07:09 Routine Visit Fidel Cristina Marcio [facility] 1.2840.114 350.1.13.10 4.2.7.2.686 [id number] [facility] 2020-12-01 15:45:00 2020-12-01 15:45:00 Outpatient SELINA CASTANO [facility] [id number] [facility] 2020-11-14 00:00:00 2020-11-14 00:00:00 Telephone Darline Cheng [facility] [place] 1.2840.114 350.1.13.10 4.2.7.2.686 [id number] [facility] 2020-11-13 10:07:51 2020-11-13 11:22:51 Supervisor Agency Appointments Visit 1, [facility] Us Room Conrado Mcneil [facility] 1.2840.114 350.1.13.10 4.2.7.2.686 [id number] [facility] 2020-11-13 10:00:00 2020-11-13 10:00:00 Outpatient P [facility] [id number] [facility] 2020-11-08 00:00:00 2020-11-08 00:00:00 Patient Secure Javi Little [facility] MULTISPEC [facility] 1.2840.114 350.1.13.10 4.2.7.2.686 [id number] [facility] 2020-11-07 18:56:00 2020-11-07 21:35:00 Emergency Yarima, [place] [facility] 1..114 350.1.13.10 4.2.7.2.686 [id number] [facility] 2020-11-03 16:15:21 2020-11-03 16:30:21 Supervisor Agency Appointments Visit [facility] 1..114 350.1.13.10 4.2.7.2.686 [id number] [facility] 2020-11-03 15:38:43 2020-11-03 16:07:59 [facility] 1.114 350.1.13.10 4.2.7.2.686 [id number] [facility] 2020-11-03 15:45:00 2020-11-03 15:45:00 Outpatient MARLYN DEMPSEYRIELLE [facility] [id number] [facility] 2020-10-30 08:15:00 2020-10-30 08:15:00 Outpatient MARLYN DEMPSEYRIELLE [facility] [id number] [facility] 2020-10-18 15:48:54 2020-10-18 16:03:54 Telemedici ne Visit Darline Cheng Joseph W [facility] ENVIRONMENTAL HEALTH NURSE [facility] .114 350.1.13.10 4.2.7.2.686 [id number] [facility] 2020-10-18 09:00:00 2020-10-18 09:00:00 Outpatient JARED MCMAHAN [facility] [id number] [facility] 2020-10-18 00:00:00 2020-10-18 00:00:00 Orders Only Doctor Unassigned, [place] [facility] 1..114 350.1.13.10 4.2.7.2.686 [id number] [facility] 2020-10-17 10:36:54 2020-10-17 11:50:40 Office Visit Javi Mcpherson [facility] 1.2840.114 350.1.13.10 4.2.7.2.686 [id number] [facility] 2020-10-17 10:00:00 2020-10-17 10:00:00 Outpatient JAVI LAGUERRE [facility] [id number] [facility] 2020-10-12 00:00:00 2020-10-12 00:00:00 Patient Outreach Maximus Villavicencio [facility] 1..840.114 350.1.13.10 4.2.7.2.686 [id number] [facility] 2020-10-02 10:34:30 2020-10-02 11:14:04 Routine Visit Fidel Cristina [facility] 1.840.114 350.1.13.10 4.2.7.2.686 [id number] [facility] 2020-10-02 10:15:00 2020-10-02 10:15:00 Outpatient R [facility] [id number] [facility] 2020-09-22 13:00:00 2020-09-22 13:00:00 Outpatient R [facility] [id number] [facility] 2020-09-22 07:55:13 2020-09-22 08:25:13 Telemedici ne Visit Fellow, [facility] Abram Thompson [facility] 1..840.114 350.1.13.10 4.2.7.2.686 [id number] [facility] 2020-09-21 00:00:00 2020-09-21 00:00:00 Telephone Fellow, [facility] 1.0.114 350.1.13.10 4.2.7.2.686 [id number] [facility] 2020-09-20 00:00:00 2020-09-20 00:00:00 [facility] 1.840.114 350.1.13.10 4.2.7.2.686 [id number] [facility] 2020-09-18 00:00:00 2020-09-18 00:00:00 [facility]..114 350.1.13.10 4.2.7.2.686 [id number] [facility] 2020-09-15 15:17:42 2020-09-15 15:47:42 Supervisor Agency Appointments Visit Ultrasound, ShoaibNette Flaherty [facility] ENVIRONMENTAL HEALTH NURSE [facility]NAL & [facility]ILD [facility] 1..114 350.1.13.10 4.2.7.2.686 [id number] [facility] 2020-09-15 15:30:00 2020-09-15 15:30:00 Outpatient P NETTE CADET SANGEETA [facility] [id number] [facility] 2020-09-11 09:30:00 2020-09-11 09:30:00 Outpatient P [facility] [id number] [facility] 2020-09-04 13:30:00 2020-09-04 13:30:00 Outpatient R CRISTINA PARRA [facility] [id number] [facility] 2020-09-04 11:08:18 2020-09-04 11:32:19 Office Visit Javi Mcpherson [facility] 1..114 350.1.13.10 4.2.7.2.686 [id number] [facility] 2020-08-30 00:00:00 2020-08-30 00:00:00 Telephone Javi Mcpherson [facility] 1.2840.114 350.1.13.10 4.2.7.2.686 [id number] [facility] 2020-08-28 14:46:00 2020-08-28 19:07:00 Emergency Juanjose Ross [facility] 1.2840.114 350.1.13.10 4.2.7.2.686 [id number] [facility] 2020-08-28 00:00:00 2020-08-28 00:00:00 Orders Only Doctor Unassigned, [place] [facility] 1.840.114 350.1.13.10 4.2.7.2.686 [id number] [facility] 2020-08-23 13:30:00 2020-08-23 13:30:00 Outpatient R JAVI MCPHERSON [facility] [id number] [facility] 2020-08-23 12:51:04 2020-08-23 13:06:04 Supervisor Agency Appointments Visit [facility] Javi Mcpherson [facility] 1.0.114 350.1.13.10 4.2.7.2.686 [id number] [facility] 2020-07-31 12:45:19 2020-07-31 13:00:19 Supervisor Agency Appointments [facility] 1.20.114 350.1.13.10 4.2.7.2.686 [id number] [facility] 2020-07-31 12:31:15 2020-07-31 12:44:24 Office Visit Javi Mcpherson [facility] 1.2840.114 350.1.13.10 4.2.7.2.686 [id number] [facility] 2020-07-31 10:00:00 2020-07-31 10:00:00 Outpatient MATTHEW LARA [facility] [id number] [facility] 2020-07-19 00:00:00 2020-07-19 00:00:00 Telephone Wyatt Jeongcy [facility] 1.840.114 350.1.13.10 4.2.7.2.686 [id number] [facility] 2020-07-18 00:00:00 2020-07-18 00:00[facility]..114 350.1.13.10 4.2.7.2.686 [id number] 2020-07-18 00:00:00 2020-07-18 00:00:00 [facility] 1.20.114 350.1.13.10 4.2.7.2.686 [id number] [facility] 2020-07-17 09:57:38 2020-07-17 10:40:11 Nurse Visit Visit, [facility] Dermatology Nurse [facility] 1..114 350.1.13.10 4.2.7.2.686 [id number] [facility] 2020-07-17 10:00:00 2020-07-17 10:00:00 Outpatient MATTHEW LARA [facility] [id number] [facility] 2020-07-13 12:45:00 2020-07-13 12:45:00 Outpatient JAVI LAGUERRE [facility] [id number] [facility] 2020-07-13 11:27:26 2020-07-13 12:41:40 Supervisor Agency Appointments Visit [facility] Javi Mcpherson [facility] 1.2.840.114 350.1.13.10 4.2.7.2.686 [id number] [facility] 2020-07-05 11:10:53 2020-07-05 11:25:53 Supervisor Agency Appointments Visit [facility] Javi Mcpherson [facility] 1.2.840.114 350.1.13.10 4.2.7.2.686 [id number] [facility] 2020-07-05 09:26:49 2020-07-05 11:10:38 [facility] 1.2.840.114 350.1.13.10 4.2.7.2.686 [id number] 2020-07-05 09:26:49 2020-07-05 11:10:38 Office Visit Gwendolyn Kaye [facility] 1.2840.114 350.1.13.10 4.2.7.2.686 [id number] [facility] 2020-07-05 09:30:00 2020-07-05 09:30:00 Outpatient JAVI LAGUERRE [facility] [id number] [facility] 2020-07-05 00:00:00 2020-07-05 00:00:00 Orders Only Doctor Unassigned, [place] [facility] 1.2840.114 350.1.13.10 4.2.7.2.686 [id number] [facility] 2020-06-28 10:00:00 2020-06-28 10:00:00 Outpatient CAROLYN MONSALVE [facility] [id number] [facility] 2020-06-06 20:09:00 2020-06-06 20:40:00 Emergency Alice Pena [facility] 1.2.840.114 350.1.13.10 4.2.7.2.686 [id number] [facility] 2020-06-06 19:55:00 2020-06-06 19:55:00 Emergency X [facility] ERT [id number] [facility] 2020-06-06 00:00:00 2020-06-06 00:00:00 Orders Only Doctor Unassigned, [place] [facility] 1.2.840.114 350.1.13.10 4.2.7.2.686 [id number] [facility] 2019-06-17 14:42:45 2019-06-17 16:33:00 Emergency X LAURI CURRY [facility] ERT [id number] [facility] Results Test Description Test Time Test Comments Results Result Co mments Source [facility] [id number] 22:55:02EXAM: CT ABDOMEN/PELVIS WITH CONTRAST HISTORY: ?Bowel obstruction suspected ?. Abdominal pain. COMPARISON: CT dated 01/27/2024 TECHNIQUE AND FINDINGS: Contiguous axial imaging from the level of the lungbases through the proximal thighs was performed after the administration nointravenous contrast. Coronal and sagittal reconstructions were obtained. FINDINGS: LOWER THORAX: Stable trace pleural thickening otherwise the lung bases areclear. No cardiomegaly. LIVER: Hepatomegaly measuring 18.6 cm in craniocaudal dimensions. Diffuseprominent hepatic steatosis. No focal hepatic lesions. ?Normal contour. GALLBLADDER AND BILIARY TREE: No biliary ductal dilation. ?No gallbladderwall thickening. SPLEEN:No splenomegaly. PANCREAS: No ductal dilation or masses. ADRENAL GLANDS: No adrenal nodules. KIDNEYS: Bilateral symmetrical enhancement. No hydronephrosis or stone. Anexophytic subcentimeter lesion in the inferior pole the left kidney uponcorrelation with prior CTs is likely a cyst. There is a stableindeterminate cystic structure in the mid polar left kidney measuring 2.5cm. GI TRACT: No dilationor wall thickening. The appendix is normal. PELVIS/BLADDER: Right-sided ovarian cyst measuring 5.6 cm in diameterminimally enlarged from previous exam. Contrast is visualized in thebladder. PERITONEUM AND RETROPERITONEUM: No free air or fluid. LYMPH NODES: No lymphadenopathy. VESSELS: Unremarkable.BONES AND SOFT TISSUES: No suspicious lytic or sclerotic bony lesions.Minimal anterolisthesis of L5on S1. Degenerative changes of the thoracicand lumbosacral spine.[facility] WITH DIFF 2024-04-13 21:22:43* Test Item Value Reference Range Interpretation Comme nts WBC (test code = 6690-2) 11.37 4.30-11.10 H RBC (test code = 789-8) 4.88 3.93-5.25 HGB (test code = 718-7) 13.4 g/dL 11.6-15.0 HCT (test code = 4544-3) 42.1 % 35.7-45.2 MCV (test code = 787-2) 86.3 fL 80.6-95.5 MCH (test code = 785-6) 27.5 pg 25.9-32.8 MCHC (test code = 786-4) 31.8 g/dL 31.6-35.1 RDW-SD (test code = 33814-7) 42.3 fL 39.0-49.9 RDW-CV (test code = 788-0) 13.5 % 12.0-15.5 PLT (test code = 777-3) 265 166-358 MPV (test code = 35102-3) 9.9 fL 9.5-12.9 IPF % (test code = 0282574932) 1.5 % 1.3-7.7 Platelet count measured by fluorescence method. NRBC/100 WBC (test code = 6704857008) 0.0 0.0-10.0 NRBC x10^3 (test code = 2450870530) See_Comment [Automated messa ge] The system which generated this result transmitted reference range: 10*3/?L. The reference range was not used to interpret this result as normal/abnormal. GRAN MAT (NEUT) % (test code = 770-8) 61.9 % IMM GRAN % (test code = 0061282779) 0.40 % LYMPH % (test code = 736-9) 30.7 % MONO % (test code = 5905-5) 5.5 % EOS % (test code = 713-8) 1.1 % BASO % (test code = 706-2) 0.4 % GRAN MAT x10^3(ANC) (test code = 7371471723) 7.05 10*3/uL 1.88-7.09 IMM GRAN x10^3 (test code = 8569034582) 0.05 10*3/uL 0.00-0.06 LYMPH x10^3 (test code = 731-0) 3.49 10*3/uL 1.32-3.29 H MONO x10^3 (test code = 742-7) 0.62 10*3/uL 0.33-0.92 EOS x10^3 (test code = 711-2) 0.12 10*3/uL 0.03-0.39 BASO x10^3 (test code = 704-7) 0.04 10*3/uL 0.01-0.07 Lab Interpretation (test code = 51407-1) [facility] (51194)2024-04-13 21:16:35* Test Item Value Reference Range Interpretation Comme nts NA (test code = 7918099379) 136 mmol/L 135-145 K (test code = 1463353538) 3.8 mmol/L 3.5-5.0 CL (test code = 3723892379) 99 mmol/L 98-108 CO2 TOTAL (test code = 8860744111) 24 mmol/L 23-31 AGAP (test code = 7011260339) 13 2-16 BUN (test code = 1484184890) 20 mg/dL 7-23 GLUCOSE (test code = 6537907436) 92 mg/dL 70-110 CREATININE (test code = 2160-0) 0.58 mg/dL 0.50-1.04 TOTAL BILI (test code = 3880137757) 1.0 mg/dL 0.1-1.1 CALCIUM (test code = 8343412439) 8.7 mg/dL 8.6-10.6 T PROTEIN (test code = 9030480772) 8.6 g/dL 6.3-8.2 H ALBUMIN (test code = 1643458147) 4.2 g/dL 3.5-5.0 ALK PHOS (test code = 0174300122) 109 U/L 34-122 ALTv (test code = 1742-6) 97 U/L 5-35 H AST(SGOT) (test code = 4686436124) 162 U/L 13-40 H eGFR (test code = 90847-2) 114.6 mL/min/1.73m2 CKD-EPI eGFR (2020). Assuming creatinine has been stable day-to-day for at least three months, the eGFR indicates Category G1 (>= 90 mL/min/1.73 m2) Lab Interpretation (test code = 64855-0) Abnormal [facility] 21:16:00* Test Item Value Reference Range Interpretation Comme nts LIPASE (test code = 8467645862) 103 U/L 0-220 Lab Interpretation (test cod e = 57295-2) Normal [facility] [id number] 20:30:00* Test Item Value Reference Range Interpretation Comme nts POCT PREG (test code = 1605) Negative On board controls acceptable with C Line (test code = 3574) Yes POCT PREG LOT # (test code = 3575) [id number] POCT PREG TEST DATE ( test code = 3576) 2025-05-06 Lab Interpretation (test cod e = 68845-4) Normal [facility] PELVIS W [id number] 01:34:03EXAM: CT ABDOMEN PELVIS W CONTRAST ORDERING PROVIDER: TAYLOR MALCOLM HISTORY: 44 years-old Female;Provided Ordering Indication: Abdominalabscess/infection suspected . History independently obtainedfrom EPIC: "abdominal pain x 4 days reportsworsened with oral intake. " TECHNIQUE: Contiguous axialimaging from the level of the lung basesthrough [...] at 18.3 cm and the parenchyma is diffuselyhypoattenuating. No focal lesion is seen. Cholecystectomy changes are present with unremarkable appearance of thebile ducts. The pancreas, spleen, and adrenal glands enhance appropriately and have nosuspicious findings. A 2.9 cm indeterminate cystic structure of the left midpole hasbeen seenstable since 02/02/2023. The kidneys are otherwise unremarkable. The gastrointestinal tract has no areas of wall thickening, obstruction, orabnormal dilatation. A normal appendix is noted. Theurinary bladder is collapsed. The uterus and adnexa have no suspiciouslesions. Nabothian cysts are noted. A 4.6 cm right adnexal cyst isunchanged from 02/02/2023. No free air, fluid collection, or suspicious lymphadenopathy is visualized. The vasculature is patent. No acute osseous abnormality or aggressiveosseous lesion is visualized. Multilevel thoracolumbar spondylosis changesare seen. BilateralL5 pars defects are present with grade 1anterolisthesis of L5 on S1. The soft tissues otherwise of no concerningfindings.[facility] Test 2024-01-28 01:22:00* Test Item Value Reference Range Interpretation Comme nts POCT PREG (test code = 1605) Negative On board controls acceptable with C Line (test code = 3574) Yes POCT PREG LOT # (test code = 3575) [id number] POCT PREG TEST DATE ( test code = 3576) 11/28/2024 Lab Interpretation (test cod e = 38994-8) Normal [facility] HospitalTroponin [id number] 23:07:20* Test Item Value Reference Range Interpretation Comme [facility] TROPONIN I (test code = 5348440253) 0.006 ng/mL <=0.034 KASHIF (test code = [...] of biotin. Lab Interpretation (test code = 33145-3) Normal [facility] Metabolic Panel (NA, K, CL, CO2, GLUCOSE, BUN, CREATININE, CA)2023-10-03 22:56:00* Test Item Value Reference Range Interpretation Comme nts NA (test code = 7512204319) 137 mmol/L 135-145 K (test code = 5106427415) 4.0 mmol/L 3.5-5.0 CL (test code = 4525134715) 107 mmol/L 98-108 CO2 TOTAL (test code = 2830637125) 24 mmol/L 23-31 AGAP (test code = 2607660308) 6 2-16 BUN (test code = 4049497864) 19 mg/dL 7-23 GLUCOSE (test code = 7439590061) 110 mg/dL 70-110 CREATININE (test code = 2160-0) 0.64 mg/dL 0.50-1.04 CALCIUM (test code = 4289706219) 8.7 mg/dL 8.6-10.6 eGFR (test code = 92997-3) 112.6 mL/min/1.73m2 CKD-EPI eGFR (20 21). Assuming creatinine has been stable day-to-day for at least three months, the eGFR indicates Category G1 (>= 90 mL/min/1.73 m2) [facility] with [id number] 22:54:01* Test Item Value Reference Range Interpretation [...] 31.9 g/dL 31.6-35.1 RDW-SD (test code = 50997-8) 46.0 fL 39.0-49.9 RDW-CV (test code = 788-0) 14.4 % 12.0-15.5 PLT (test code = 777-3) 271 166-358 MPV (test code = 41009-9) 10.1 fL 9.5-12.9 NRBC/100 WBC (test code = 7141465213) 0.0 0.0-10.0 NRBC x10^3 (test code = 7387920792) See_Comment [Automated messa ge] The system which generated this result transmitted reference range: 10*3/?L. The reference range was not used to interpret this result as normal/abnormal. GRAN MAT (NEUT) % (test code = 770-8) 58.8 % IMM GRAN % (test code = 9758048017) 0.50 % LYMPH % (test code = 736-9) 32.9 % MONO % (test code = 5905-5) 6.2 % EOS % (test code = 713-8) 1.1 % BASO % (test code = 706-2) 0.5 % GRAN MAT x10^3(ANC) (test code = 5730255606) 6.03 10*3/uL 1.88-7.09 IMM GRAN x10^3 (test code = 7030137017) 0.05 10*3/uL 0.00-0.06 LYMPH x10^3 (test code = 731-0) 3.37 10*3/uL 1.32-3.29 H MONO x10^3 (test code = 742-7) 0.64 10*3/uL 0.33-0.92 EOS x10^3 (test code = 711-2) 0.11 10*3/uL 0.03-0.39 BASO x10^3 (test code = 704-7) 0.05 10*3/uL 0.01-0.07 Lab Interpretation (test code = 21165-8) Abnormal [facility]XR CHEST 1 [id number] 22:06:13Ordering Physician: TAYLOR BYNUM Clinical Indication: cp Additional Clinical Information: Technical Limitations: None Comparison: None Technique: Portable chest obtained at 1608 hours Findings: Shallow inspiration. Cardiomegaly. Mild asymmetric rightinterstitial infiltrateUnTexas Health Presbyterian [facility] ACTIVATED PARTIAL THRMPLAS [id number] 00:48:15* Test Item Value Reference Range Interpretation Comme nts APTT Patient (test code = 3173-2) 28 See_Comment [Automated message] The system which generated this result transmitted reference range: 23 - 38 Seconds. The reference range was not used to interpret this result as normal/abnormal. KASHIF (test code = KASHIF) The [facility] patient population mean normal value for aPTT is 30 seconds. Lab Interpretation (test code = 98707-9) Normal [facility] HospitalPROTHROMBIN TIME / [id number] 00:46:14* Test Item Value Reference Range Interpretation Comme [facility] PROTIME PATIENT (test code = 5964-2) [...] the indications. Lab Interpretation (test code = 43697-9) Normal [facility] HospitalCOMP. METABOLIC PANEL (34753)2023-05-07 00:39:34* Test Item Value Reference Range Interpretation Comme [facility] NA (test code = 3417448352) 140 mmol/L 135-145 K (test code = 7959570642) 3.2 mmol/L 3.5-5.0 L CL (test code = 4864939253) 105 mmol/L 98-108 CO2 TOTAL (test code = 3108906968) 24 mmol/L 23-31 AGAP (test code = 3166070642) 11 2-16 BUN (test code = 3606889181) 11 mg/dL 7-23 GLUCOSE (test code = 3497205094) 114 mg/dL 70-110 H CREATININE (test code = 9918720852) 0.47 mg/dL 0.50-1.04 L TOTAL BILI (test code = 4099706280) 0.5 mg/dL 0.1-1.1 CALCIUM (test code = 3987164665) 8.7 mg/dL 8.6-10.6 T PROTEIN (test code = 8787149206) 7.6 g/dL 6.3-8.2 ALBUMIN (test code = 9643661822) 3.9 g/dL 3.5-5.0 ALK PHOS (test code = 9337271046) 99 U/L 34-122 ALTv (test code = 1742-6) 50 U/L 5-35 H AST(SGOT) (test code = 4024330364) 56 U/L 13-40 H eGFR (test code = 4161049625) 144.6 mL/min/1.73m2 KASHIF (test code = KASHIF) [...] imaging tests). Lab Interpretation (test code = 12002-1) Abnormal [facility] HospitalLIPASE2023-10-11 00:39:14* Test Item Value Reference Range Interpretation Comme nts LIPASE (test code = 9851461835) 154 U/L 0-220 Lab Interpretation (test cod e = 72002-7) Normal [facility] HospitalCB WITH [id number] 00:25:48* Test Item Value Reference Range Interpretation Comme nts WBC (test code = 6690-2) 10.00 See_Comment [Automated messa [employer]] The system which generated this result transmitted reference range: 4.30 - 11.10 10*3/?L. The reference range was not used to interpret this result as normal/abnormal. RBC (test code = 789-8) 4.53 See_Comment [Automated [employer]] The system which generated this result transmitted [...] 33.7 g/dL 31.6-35.1 RDW-SD (test code = 65383-4) 44.6 fL 39.0-49.9 RDW-CV (test code = 788-0) 13.7 % 12.0-15.5 PLT (test code = 777-3) 329 See_Comment [Automated [employer]] The system which generated this result transmitted reference range: 166 - 358 10*3/?L. The reference range was not used to interpret this result as normal/abnormal. MPV (test code = 71208-0) 10.1 fL 9.5-12.9 NRBC/100 WBC (test code = 1308816028) 0.0 See_Comment [Automated [employer] ssage] The system which generated this result transmitted reference range: 0.0 - 10.0 /100 WBCs. The reference range was not used to interpret this result as normal/abnormal. NRBC x10^3 (test code = 1175276970) See_Comment [Automated [employer] ssage] The system which generated this result transmitted reference range: 10*3/?L. The reference range was not used to interpret this result as normal/abnormal. GRAN MAT (NEUT) % (test code = 770-8) 60.3 % IMM GRAN % (test code = 8343019483) 0.40 % LYMPH % (test code = 736-9) 31.3 % MONO % (test code = 5905-5) 6.0 % EOS % (test code = 713-8) 1.5 % BASO % (test code = 706-2) 0.5 % GRAN MAT x10^3(ANC) (test code = 0497961565) 6.03 10*3/uL 1.88-7.09 IMM GRAN x10^3 (test code = 3054252163) 0.04 10*3/uL 0.00-0.06 LYMPH x10^3 (test code = 731-0) 3.13 10*3/uL 1.32-3.29 MONO x10^3 (test code = 742-7) 0.60 10*3/uL 0.33-0.92 EOS x10^3 (test code = 711-2) 0.15 10*3/uL 0.03-0.39 BASO x10^3 (test code = 704-7) 0.05 10*3/uL 0.01-0.07 [facility] HospitalPO[facility] [id number] 23:53:00* Test Item Value Reference Range Interpretation Comme nts POCT PREG (test code = 1605) Negative On board controls acceptable with C Line (test code = 3574) Yes POCT PREG LOT # (test code = 3575) [id number] POCT PREG TEST DATE ( test code = 3576) 2024-09-24 Lab Interpretation (test cod e = 31746-0) Normal [facility] PATHOLOG[facility] [id number] 18:13:10* Test Item Value Reference Range Interpretation Comme nts Case Report (test code = 8063794082) Surgical Pathology ?Case: [id number] ? Authorizing Provider: ?Marcos Rodriguez MD ?Collected: ? 04/25/2023 1313 ?Ordering Location: ? ? GI Endoscopy OR Department Received: ?04/28/2023 1017 ?Pathologist: ? Lee Glez MD PhD ?Specimen: ? ?STOMACH, Gastric forcep bxs - Eval for HPylori ? Final Diagnosis (test code = 2179367648) n2slkBSfFKAoe5rfWLSliP FuZzEwMzNcZnRuYmpcdWMx TTlnpkJgIPbwvZbhAGJ7HQ XhOQ3tdGaspIa4xRwmAFRd teT4cPCpPSnia2hmTZP3t7 qsdwbtPXQePKkgSw9zrKZr nSpsQwZkGGQjYEg2mV71QQ GqbC3weIIoSMm4NHSupFLl uxPkFwWfPMVckIJtwYA3AR UhPE0jemjjDGuaQAieLDEj wxV1KSDrpKLjO8UaNXRkIZ 8rgkcrHBQ6INbrGOTjBYA1 SjSqVGXpi7Bleyd5WzZrqP FyZFxwbGFpblxmczIwXHBh prCLOnKIQG0FYZZXBCGRBG 0KO4g6XGTghoHxTTHtCF7o M9RKQCSPXuMMLKDRR4IeI9 aEYSSNWzPKJSQJN0oVV0gJ DFCBSU5KRQTgzLUrCMGaCR BsJTWKWvNHAtEYD1OLXrRU GE3OTNVIMKHKQLQuPLEIKe RJRklFRFxwYXIgICAgICAt IL7GEHrjCAiMB7ZXBE1RQ5 FOSVNNUyBJREVOVElGSUVE XHBhclxwYXJkXHBhciBHaW swPBC5nqBGQZ21chspGSWc cGFyXHBhcmRccGFyfXtccn UwETgxh9TxQ8MyDjBeAEnn bnNpXGRlZmxhbmcxMDMzXG L6mmFcKJUkEMvhPTNdBRst Zb4yfRKqsLnvCaZeXDKgn4 adqlDSWAiuNqRfV043XUTm KDggt1mzm9JtDWYgzUVji6 L5WZINflnmtQe0j3aiPqQk AkJ3aWUeWAjqX4ibuxHgtS UkM2LasNFpzMt6vKnyH00u u9N7CapdZ4uoINLeIRTtU5 UlBD9qLKQsHkt4QXJ6WEP0 PNIbSJVgS8TgEV1aNQSkoY GaMJx7f1uqbGbvIMHqQOF7 l0veLVadjvG0KM0koe8mjI r2m4yhtrVnNLSuNBCpiXVW LQObW2DjgHovDt2bgVq8oN vvWyblTSY1Tqc0MQ6luu53 aoa3eWouEJUiefzgSvW8FH olTNKlaaswQYi9RTavAIVu iIR3DCOlvNFiM8NfIFEdXL 8jfvh0AHJ1SCtsFWXxEcD6 NDBcaGVhZGVyeTcyMFxmb2 70VPM0LjNbBM3fC4Sgh9O8 eC5unCUmSSUybQJbUnCsRW Wzsr2qsEZeTQvyu6ZxDQZ2 acR6vHQyoGDaXJXrFZ02Ga zsr7VzSucmXWV0ERYwaoIa x6Dxq2cdPkPkrtLnG9lgN2 JyZHJoZWFkXHBnYnJkcmZv p2Aok3AusMXepNk9s7xbUP XwXSNxaPieu6saLUA8FCYe Z0O6eBVwt0hxFLyeGYDbzF G9zoT9GYPgmVMpX4NegX4p DQOnHG6fvlb9l7sgABU6CB eyYCSuVlY8kwO8IDQgyEQe DEXcwKqgSHudk527BRE0Jk AoNMBjw5AvR4EfjGdgT76i sZeiV07rYDLtqVyqyL6llU pjzY4yYuQcVcXgVKrxjIqw bGFpblxmMVxmczIwXGxhbm yiHUFcMLwfB9ggRqXxKOQb xZjoHRcrd0VmQWUsPCAaUz xmczIwXHBhciBJIGhhdmUg mAQin28vKEweaZYjEABrNT laPBBqnPpmz3HzC1enIR5r S2MkrOScjsTnlvEpPVlhMZ Mjm3z9iEAllCtkt5QzjBQm KL13htGiNFEeHUO0MGGte4 ngVE22rkdiOoHdsL90drQf amMuHOZwa8ctY1ibdEEox4 Xoz8KqueYjNSzhf7TlXE2v qVRgdufkgLW3LVQatRTccl WjsmC4fOwvSTTkdK3ldQ7s pTidlS8dVkJkUyZiJGsmWW 4cOSNeC2ltiGOaIMLpXAAr G1pgAyIytW1bbNbcPuxgeq E7RIOysq66 Clinical Information (test code = 9314679514) Abdominal pain, generalized [R10.84]1. Gastric forcep bxs - Eval for HPylori Gross Description (test code = 3050008876) v2cgbUCmQCMupXBNLAI7RS IpML8fdHqnfWx3pInlGSDl wsJ3vYVrEVnda0ntLRI4v2 kuzkVIUprvMFSeIV4pNUzi DNWnEF7aPmOwKUXhYaBsUM BhcGVydzEyMjQwXHBhcGVy gOV0QEBrGT1rtcdtQIfhDH txHCUwwfO2TATzgBLvO6Zq ARImYI4eyyilFNU9ZKYXLm exQr5ppEYnsZeqEqXmCxGk YXJzZXQwXGZuaWwgQXJpYW j3oY3XUxopKPX8FKKPFsbb AnipnHbek5GbzDXyOBBoFS xcaWQgNTEwMDAgXFxkYiBP OoEnEaP1Tqz7VCJdInG0VP e6GPFWNZAwTzhwJDY9VQI7 EMl6BIQaLF7gNDitbCPhJD neQxndQBqqQ565TJbmRCKs A2EbL4MfVSigLiUpPOyhZW MxUOQhHDjnOWDcA3ZRHMHm MNA3MfQaJZOvBFr6ZVzaM5 QTJKOxJBZuTzTpYiI5ReP9 HMl6TNPVQc8aEAbdKhKpLO B5XHI8HIh7FiBtZAMnZdOl LKMdLROvZHiycHDxKQ5ixR jvVCLgSW6AGGIfLCezYWSj UnKnU0SDZ9ySGU7hIWpaoO JjaFxmczIyXHBhciANClxw PAWhNY2RPELeXJzfNKf0wi VxELUtUzSuKCSmI80sm3RM v4WwUO3RISz5ufIgkixdbW 4wQGIttiRbVWjYcFLrbL6b ynGXBOkbWHKlQ7MjocAkNX cmFEPrgg6tnMciKFjmGmCi bGVkIHdpdGggdGhlIHBhdG hycwZcU1L3kuDcXD8mRXTX OFFfdO7bWMNeAYQfr0HksK QofKdcE7UgfYPeIuTsp0Bh DTPrVmemGYP1NWrcHa2mAT rxQFS5qH0wjYsjTpPjC9D3 ODCfWUTku23gaLB7csEgXy VwYFZpiuEiwkCuE6LuXWBt w54hpWW9oUJqoMCfAtAaN2 2rioLzIAuwUzBjDB4wLZBz NHqhGZogAZV2NBC9NHKchD Skm0dehjvmQX81SKadOQ0u JGrnOV7mTXOfJWlmPDTsI1 CfX4S1NMezENOpXWTwnXTo vQ1btkDatdWlnKt0VOMsFW C5wBTltZspDXNdBgvvuGA6 FJHfVhOxigLbl6KyuVz7wY NxDRjuQQYrhE6kjZ0yNXGr XHBhciANClxwYXIgDQpcc2 EzMFxlcGljWHNhMzAgDQpK eCfpNZTGW2wuaWKlCSskKE TFVSsZM5WFOT8XEDAzzJVA TZZ1ZR1tVKdfRFEbL9CnT3 FdazH6a2cbdZfxt5LzmYYv SA9xpMJuTV6GQENvodXlHN p9 Disclaimer (test code = 9564742571) j7efuHIyGYGin3nbRGWwuJ FuZzEwMzNcZnRuYmpcdWMx GWwfhaIkXNuiw9WkD2ToPw AwMFxhbnNpXGRlZmxhbmcx YBArORX4ulEsFAYuEBzcFS BtVMzzWt7rnYBgmPheLiMl WOHhq1ququMIFSllDyCeX7 38LLLgSVskp1zbw5PzYCAq hZQaz1Z4ALROfpvejUf6tW gwI03cc4O4DqvkD2jdNIAo BVWbF2OnPM5nTKSuMtl3DA S7EBZ8SVEjMOJcI9TkXB9c HYJwjYUkDWy3w4pqnLdgOK MxAHG7a7icZXyfvcOwOL9n go1pgTb1j3yvkzNpAJLtZF MmtCPZZYFnW7CeqVccPr8x oAd9ySsaMssmDWK9Wem2HD 6keg51cwf9nEalTCNdfzwq FcF4BFovXOZtljudCIi8QL tsRXDvbWP9DRUwrBBmQ0Ue WOAgCL0mgnf6MCJ0NBxaBF EhJxU0FTInwJKwFZAleHfs HDgro529PBB5MeKrMV4yD8 Vsa6A6qO7myYKcUBJtxFFd AbEbFOVneb9yrKZrLXbsy6 RbWJM5ldW5xDHxkBFlYHVv WO69Wxmmu5KbPehyw2WjJ6 2ypJX5AZdni7vsEG9oPuS3 jjRiJVvyw5lmeY8eDmC0NQ vfXR0pRO1rJUKleK6btngs XHBnYnJkcmhlYWRccGdicm OiXx2neTqqPBU5AFdsK8bu yD5gFaZ6XSjeF1sqcM4vUD p2NGessHT4KTStrR6qFV7f cnwfv1goPIczKYsiBKBuzu C2sdP8JVJsjSVeQ6SdvG4a TXOqFT3obsuto4hqXXQ3XA teKGNvUZX0LpKkJGGcz8Ef awo3OqMfb3IoaPAdBEjtB2 8wa468RICnrmTgP2mcwJQg nnxqoXIvqgcxGEihscI8QY EvoqEuk0KvTBFtMIY0YHzs UGqfgNZaOVEtdXeik0eeP0 RscGFyXHBsYWluXGYxXGZz MjBcbGFuZzEwMzNcaGljaF rdAKawWgIeEWFhRSizS5fe HqStX9RmZQRoImPpiBCrI9 ggVGhpcyByZXBvcnQgbWF5 MViyZ8j3PZCxqkTtcTv7ib KhDaSsLAXxBOK5GOwcgPNs XLXhq0MesomdyEYaYs1glS YoKJNaaL7nFVQbKNPwMZgb QT1wkCv7BAWBqQMqtQRkSs CTVVUwUQ48epUxJQURodqu b4B8GXbjDPAwd8HevFKpG3 dgy9KlKCWtm33wAF6pr5K6 t7ktRIX4HO3jl1MbGQInkL JjgERuHLJfd5Ojhvdwm3Of MEMgofFrt9ZnKBNjmnUmlW NlGWKckkKxxl3fzdMfWQUq PHUhB8XgrtyapVhgerRzJD Akqb3boxVfVLL1NRDAJVNu VTWmz5NqdF1ynRESSUQ5uP Tolo5jyoLGgCPmCNTpmo98 INRaPH6mA9czRGUgIWFxvt HjbBDvs7HiGQSplRH1iEKo WC5TBgRKy52yFOZnVKJTxz QyKPGuuZfcmEF6qcF9xO5c IChGREEpLlx+IFRoZSBGRE PsRO6asfVvk3DowjGmiEiv WKZfdWJti3SvySKbb0YngD oyj6VywHZduIDuIW6kOLPe clxwYXIgVVRNQiBMYWJvcm V2o4RdUHMzEFXrPPD1hFri caa7KJXglK7iPFMpP9qlzh otQHckYZWsy6YriW4mtUUT mETwp1NrwEPcaRNGeVUlQO 3rbeBvEErFYFqOBXF9tdXm OOPxc6QvUMcsG1vbE18onV gatQw0iUZ8IXD7sH9yPol+ IFxwYXJccGFyIEFwcHJvcH BqGVKbuSltgcCgP5VmbxZc jS6hiKFhfdGfQF3zSG0dK0 B1qKRhRSKdfzIib7irQGtu dmUgYmVlbiByZXZpZXdlZC Ngo7JqNOeuDPI4YPdsqiKu bmNsdWRpbmcgSCZFLCBTcG VjgKUxZQF0THwkriFngzCj RY4zrA0xeZprsU2ijCCebA S8bvtsEJNhDDSuhPprPIJg PI4blGgicS3tQwNyKcZxZV eeAM7jVIPpE0cjeHSwDYEa ZQHtJ2nxIrSolN0nyCswVO xjZjJcZnMyMFxwYXJccGFy XHBsYWluXGYxXGZzMjBcbG FuZzEwMzNcaGljaFxmMVxk QiIcJAPtOGjuH1byYvDmS7 MiJPVuYbRivNCmW7azGQcu YRF9KYDpSD2ggXRxYE99wF Lbo2cnRQydwZnoby2dW45c xWTpRCiqlRpzGHQhd17ca2 XlRBOgxfDlsg5xNUWlkjP9 sW8tKIKamRusDCKuvWGxMH Vaj3KfXNefdCZcjnHgJCob BSVyFOYmmVGvwwH8wvRqqu JxsaCrXWMbnMixHJShb7Nh JJNuGIotc6Wzoy6ynXJrXM PvgaIWpImjbBCuaB2bS0Fr AKWsJGYmoi9sZCLugS7sQN etd2XtuzkkMXJjRWTqDRFo faXwzp7dJTZvrBXIER0JDO rofYFan2KtjxXmY3lABSV6 NUQwNjYwMjgxKSBleGNlcH JiYODpoa92NFBcmN4ncHrc MCPtpV9wuL8vrIinnD0bBs OiEuJqVXvmMG2iQTClA0as fKGpDIPdVCAyK3hjTgOceL 9jaFxmMVxjZjJcZnMyMFxw YXJ9fQ== Embedded Images (test code = [id number]) [facility] [id number] 18:13:10* Test Item Value Reference Range Interpretation Comme [facility] Case Report (test code = [id number]) Surgical Pathology ?Case: [id number] ? Authorizing Provider: ?Marcos Rodriguez MD ?Collected: ? 04/25/2023 1313 ?Ordering Location: ? ? GI Endoscopy OR Department Received: ?04/28/2023 1017 ?Pathologist: ? Lee Glez MD PhD ?Specimen: ? ?STOMACH, Gastric forcep bxs - Eval for HPylori ? Final Diagnosis (test code = [id number]) [id number] FuZzEwMzNcZnRuYmpcdWMx KHpzemFtXRwfgDccUEZ5ZA DeIE4kjZgdaUs8oRozPSHk bdY3dYWrKBkei8tlMTP3z0 ajbsnnRGFaHXmoOv6xfRQn pJxsBbKtKRPdHSo8vH39ZV AdrT7gfJEqINk2QRVloQHe btUkLzAtHDQdoOLclLE3JS AlRB4nxospMSjhSPsgSCBw hoV5TEIguCVcJ5QmIWLkAM 4arwlkHJO3UTvaJBJvHLS4 ZqMoVFVjs3Bjkld9OaAhiR FyZFxwbGFpblxmczIwXHBh cnLTLqAGGD2VFRRVEQPMXP 5TI5l7MZQqyxQrJTIzPI0i J3IMVYTKCuHQXJPWB4MkS5 fBPSQCCsCLRXJIE6lDO0fP NLTWTQ7XITBqyAEtVQPkVQ IpYBAAYsHVGrAON3SJFkAM KM1INNLLMUJWCXIqUHODMv RJRklFRFxwYXIgICAgICAt AV1HQPyiYFiKZ2ZDND0TX9 FOSVNNUyBJREVOVElGSUVE XHBhclxwYXJkXHBhciBHaW flHJZ1weBGET36skvlWGOd cGFyXHBhcmRccGFyfXtccn FaJYtzc9NsZ9PqHaWwIQnd bnNpXGRlZmxhbmcxMDMzXG O6uiKeVSAoLCcpAWLySLsj Fv6ayGYgdHbzNbFtBOPeo8 urczETIUgaHxCiJ303MMBt MOzau7dma6VkANQdaWVzn6 L6WOKTpwpgmXn5j0wuBsUl KgR4iEClDCshG7xvcwSmjI RlO2ZljXUfdPj2kImsZ29v k8K9IvooX9hiABEtHYRkO9 PhDL8tMRHoIdw9TNK5LEZ6 LZXkTRSlE4FcHR9zHSDssY SoGHc9z0wlyUcbEKSsJWC1 s8hdQEyabaT5PC5kkb7wpR a8x7vdmyImMYFhMWXgeVVV BGVpP3BqtBimJx8ylVb9lM pkYnmbBIO5Qsn6LQ7jlv13 dlq3mRnlBJOcamsmPyD2TS roIRKkmlqjXZp5DYtmMHFv tGA9ENTmdIAaX1KgVPBnUV 7tlvi5DKW6XKplOTYaRoA2 NDBcaGVhZGVyeTcyMFxmb2 01RPA9BhArMS8zP6Duc3B2 pV8ihYHwWVDmpHLyBeKoEE Vdds6xpVNnXUexy8HjOHC7 wrR7mMUobVOdFGPoUN03Qm cuh2SaSxcyFGH9CAOkxbWv q3Qig2pxIdBefnDmT8bkJ5 JyZHJoZWFkXHBnYnJkcmZv i8Uui9WmaUKiwXr5h2wsEJ OmESEkxPlav4ygQZO4APIh M8E0hDOqy7tfIEciQJDviO Q9bjX8ZUZivFRtJ8KbrH8j MLYjXK7glcm8z9jzUHC4UK ghHQJxZlX5fcG9WYOmpPUh ILOgqEbrPSqkt265BBC3Ze JhZPJdz4YeF2EasPgjQ83v fUtuB34uIINgnRvftH9viH daxU3xQpRgLzFcETciiPpx bGFpblxmMVxmczIwXGxhbm neAUKoYFdcW6lkMuJuIUGx mFdjCYnll8PdQJHwSPCmOy xmczIwXHBhciBJIGhhdmUg lHZen81fJHiyqEGwBDHaNS ogWKKzsRfij7TtV4buSH9k K0EftFSdajJpqsDnPHgrMU Lzj7d6nUOfhHksd4VrmFEc CV97spXvDFEdWKN4KFVsy5 swQP50dnpkSfOgtA84vkWl ipOdGYGki1abL7gvaJXlu4 Tbi2AqwjMtUMibx1JjKY6r pVAcqotdkVQ7AILgmMVyks SkoxJ2wOhdVMQwnX0tbI9q cAgyuO0zXgYuJiHcZInzCS 2jZOUrL6qdlEBiMKKuMPHo F1imDjKpeG4gmMtoIvebwm E2CGEddt19 Clinical Information (test code = 2374697337) Abdominal pain, generalized [R10.84]1. Gastric forcep bxs - Eval for HPylori Gross Description (test code = 3311420662) u9gtfZPlXCXvsHFZCQZ7QX CsDJ7duVickXa9vNylZTEw qqZ3cWPvYAqqc1caJIG1v8 wukwNJWotzSFKyVI3mYMgd WKHfWN2kPpKyXBCyEoLdAM BhcGVydzEyMjQwXHBhcGVy tMO5PGHwLD6ifvxjBXkfTO qoGWEbpiQ1UREmdEOcJ3Th AVFiZM3onpoiLTO0HKNBKx buFa9zuXWxuOyzCkPdFnLv YXJzZXQwXGZuaWwgQXJpYW t1bY5HRxmvMNP4INVKDzfz LhbwrGpcp1QvtZXkAJOjQG xcaWQgNTEwMDAgXFxkYiBP NmYoKgL5Tbr8TMLkVuU9YO b4MAMLOITuGiyzIAB1LBX1 CIm6KTZjNZ0nJMqlrVHbOR ymKzjpRIsqH680FZliSAQr Z9NtU2PvNFshOoNnZBhgGP BhTHNjETknGENkO0KXUKHb WGR7ToWxFUHsGKj2YEguD7 AQAPPxIMUpTqGoYpN6BpS8 SOf7DTBQDh6xDOzqEpObHX F4VGH5NFk1AiPyPZRiPoSi RCTuEJLlMArxmZXzGC8wiK dsMOCvTL6AWXNhYAkaSAUn NyJxB3DPZ3sFTV4tFSoekO JjaFxmczIyXHBhciANClxw WNIiCH1ZZAIlYKnyOWr4ip YvVNPiCfGvBEVoV96jq1PC a4DbWQ5OUEj3uxCnmxyxuX 9rKNEficImSGzPgJTljS4b vbJKTQuzHALvM7RijrXmFP dkXRKgig8rsYmgUWxwByAh bGVkIHdpdGggdGhlIHBhdG bwehBqC3E3fpJvHJ4gISTW ZPBqlG0jEGDiSGXii7YjfJ LpkVmsN2HbaNNmPwGio8Js KFNvAwolZJV4APslJf4sOH trPZE4rX6xyHrpNkYaN6V9 QZQlZERcw65rwSN8rhToLp UyYJSquqDyljUoL8IyNHEc n52daEX7uKKwsOWrHfOsN6 6alzDdUEclLkQfWH5xNTWn IBugMOylQXP3PKA4YHHwgI Naa1omdcfeGV36KEpkYY0m ZLrwVZ1qQRItYVcyLIKcO4 WiB5F3XJrpNIZwTJKyoQEi dP3lezMepzUzyMj7DGNtRM W5vUFvpZdyXGRpRrkqwQK3 EIDzDzNeoyKdj9GyfYj7uD HrZRtfRMDvfY5etH6pNHDt XHBhciANClxwYXIgDQpcc2 EzMFxlcGljWHNhMzAgDQpK dHwgQGCTI2xsgKXaCIvmAA WOIMgGY1DXPT0NEPDyyLGO FBU6LH0aYCfkIKGqB4OjY5 QtqiM6a8bgtKitw6VfdSSq DN6jzMAtCT6HQAXlhbViDX p9 Disclaimer (test code = 8130850053) h6icaZLgCDMuo7qiLWVidN FuZzEwMzNcZnRuYmpcdWMx IHwxhaDkABsbh6SzH8ShYz AwMFxhbnNpXGRlZmxhbmcx WTUxLAB0fnCkGOFaDVcmQL AjWSqsHv4egHWimGgcAqJj BQFbl1aphqQUCYixUzLqG9 92XSOyGWyfa2eml1TfRTFm vMRuf3S0KIYQnzsetBr3pK mdV03el8J1ImxzT0azTEGe RXEtR2YaZI6kVANxKwl3JD V9VRO3TVLaDNRrR6LzFL9q CQGfhTIyUGh8d9zulJioAW TiDTQ9d4hxGFhaxaNfPL8c pd5ysCk0u8xzimNsAPDcHL EcsSPWOGDhC1MysEmdWy2d lHj8fGwkSbiyTFY8Viv3TS 4kum71lyk9dQdxMHMtzpli YhB3UZzrDTQhgzwqIId7EF eiFKMivXR2NHLkrDOfR3Od WWAdDM4uxey9FRR7VHwaRJ JqWsP7OPOciZPgHNQqqXjr VDajd184VYL9ZyViXJ3hL2 Afq0Y1nL8mgWHfUMCuvACt DhIdLBZpoc1ocAJpYUxyv8 DnOFH3vzT2fALjuVNpBMAi UI03Bjomm4QyVtasy9ZjY3 6oeNQ9BYzoh7jqZF1tQjY5 jvMwKTkwc5jfxM2cRgR2CO vmLZ8mLP1bWULlbP5nmfpd XHBnYnJkcmhlYWRccGdicm ZuQg6ptBefDWC1PTjjA5us nJ6cPsM4LOluM5kncG9aDP v9FDorwIQ1PZWweX1dQO3j qromk4xdNRymSQlaKORgrh P9buC8FUDobWSiV9QfeC8v PZWwDO5gngtvd0doXMI8DL hfLBByRDX6BaGuHLMlb2Fm dix1EpCnl3LizSIqAIgsY6 1bo663QEXnbwUlV0kbzLWj gkxecQUivpurSGoohjA9XK JcwfSst2QlLFHcGFL2UXqv MNyblSFsOXOleNhnq1ffQ8 RscGFyXHBsYWluXGYxXGZz MjBcbGFuZzEwMzNcaGljaF ehJQlbQwJuHMLaOVrtC4sr YjOaY5ByZHUcEyGheLWvX1 ggVGhpcyByZXBvcnQgbWF5 OAsgA7u0MMIbsdIotWf8lj PeZuWdRCEySPZ1EKalgUDh NPFpv2FgiazzpFVtMs5csE TzYUZuvL3dBFWmHPZiFGqc YV7grDq8DXBTtUImmCJvPd LJAQOjIT33xmRpORBNkdkl l4O5SYflHEKth4OiwEChP1 woe2McPCHus58tBI0bh3I4 f1fpDMU0OW1bl8OsSWUsaO FwlWWuFSMko4Cjduivx3Gq APEfgpMsz9CmKAZtvnDdkD KbHSVwthEsqk4vhtNuOOVk OVJgZ4AkynifjOkyrkEhMT Vkry4uzlFcVEE4VGUNITAh GDLbi2TeaF2wtMWIFOS9tI Mjfc9xeqFCoINmKDPmvv89 DTJwBA4hL8sfVIHcUUJzkd UcrGPbn7BgYHQptTJ2tESa HO0NDtLMb01wQINdBLQFxt BuNEBqrBqviEM3yhF2lL0u IChGREEpLlx+IFRoZSBGRE VbGW3jbpGfv0FwfiRauEny MSHwzLOdv5VjzTKnt2ZyrK umr1VicUEmjGXvHQ3zSJBz clxwYXIgVVRNQiBMYWJvcm Z8y7FjIGWkAQPtDRW1tSmh cmr1ZBPnfZ0mYVJtT0zhiz nrFEbuOXJtj0OqqQ4frFAM vTTzk7InqNCcuSSIhYFiIQ 7zahVtBAgJNTeAOOE7syGs ACOuu2MgIRjxK6wjI10joD jwaNj4rTF1VCJ8fT1kHsy+ IFxwYXJccGFyIEFwcHJvcH KnCMNrjRcrgtTfH8NqozDn zY6fsXLrayEdUA6vAJ8sO5 Y8sYFkOZGjgkKbj1hqUJkt dmUgYmVlbiByZXZpZXdlZC Hxp0VqEUlaOWH0GOgvqmMe bmNsdWRpbmcgSCZFLCBTcG RraBDpSKH9GFflktDowbMy LJ9hnP9trKupmW5iyPFjlG K7gurwGXQpVWQvbDkoIQKh WP7viTuscX0wBvPnDcHsJZ vjXE1xHXVaH1loiCRkEXMb XINqN2viNeTaxN4jkNoyNR xjZjJcZnMyMFxwYXJccGFy XHBsYWluXGYxXGZzMjBcbG FuZzEwMzNcaGljaFxmMVxk CpKfKFEgEZkgL1pjUzFiK4 JiPRGpTeAmhSOnS4cjDVvd VOX3LZPeWW5rfPTzDV87sU Syo5puWKannIxioj0lB88d yQXqCXgxwBulIIAgg37fp2 UaEDXqxpRndp2kNDHpqjX1 mW7mRFIboOjqYGItqPHsJS Dda6UjBYohxCMinsEbIVwr OKOgLCMilLJkggE3fkYxde KqjoZeRVBuuWpsZSTzv8Ru AHKqIFpcs9Ggbp7yyVXiVS BidwABwRombTHemI6nG1Aq URQrNQDpbt9yEGMjlF8oMU xnu2FctdssCOZlJMLxAYLt dgXjlx6kWRQwcZWSBJ3SZT xueQJul2QjzuVjX9wHTQQ8 NUQwNjYwMjgxKSBleGNlcH CgUQWkjd95RFDtfI3ehGbl CDJkuG4ybD0luXwdpY0aFh NuEdXvWClpXO7mZURgS7wr qBVtSMKbXJZpY0pqFdFghW 9jaFxmMVxjZjJcZnMyMFxw YXJ9fQ== Embedded Images (test code = 3990732779) [facility] [id number] 17:55:00* Test Item Value Reference Range Interpretation Comme nts POCT PREG (test code = 1605) Negative On board controls acceptable with C Line (test code = 3574) Yes POCT PREG LOT # (test code = 3575) [id number] POCT PREG TEST DATE ( test code = 3576) Lab Interpretation (test cod e = 06688-0) Normal [facility] [id number] 17:55:00* Test Item Value Reference Range Interpretation Comme nts POCT PREG (test code = 1605) Negative On board controls acceptable with C Line (test code = 3574) Yes POCT PREG LOT # (test code = 3575) [id number] POCT PREG TEST DATE ( test code = 3576) Lab Interpretation (test cod e = 80505-5) [facility] [id number] 17:55:00* Test Item Value Reference Range Interpretation Comme nts POCT PREG (test code = 1605) Negative On board controls acceptable with C Line (test code = 3574) Yes POCT PREG LOT # (test code = 3575) [id number] POCT PREG TEST DATE ( test code = 3576) Lab Interpretation (test cod e = 86297-4) [facility]. METABOLIC PANEL (21176)2023-04-22 00:07:45* Test Item Value Reference Range Interpretation Comme nts NA (test code = 9080911933) 141 mmol/L 135-145 K (test code = 8086527105) 3.6 mmol/L 3.5-5.0 CL (test code = 9961255237) 106 mmol/L 98-108 CO2 TOTAL (test code = 4178107447) 25 mmol/L 23-31 AGAP (test code = 1312913080) 10 2-16 BUN (test code = 3266405516) 12 mg/dL 7-23 GLUCOSE (test code = 4370430867) 91 mg/dL 70-110 CREATININE (test code = 5913409177) 0.61 mg/dL 0.50-1.04 TOTAL BILI (test code = 0726866035) 0.9 mg/dL 0.1-1.1 CALCIUM (test code = 9495909794) 8.9 mg/dL 8.6-10.6 T PROTEIN (test code = 4247443987) 7.6 g/dL 6.3-8.2 ALBUMIN (test code = 1914071375) 4.0 g/dL 3.5-5.0 ALK PHOS (test code = 6675488913) 81 U/L 34-122 ALTv (test code = 1742-6) 62 U/L 5-35 H AST(SGOT) (test code = 6608243137) 98 U/L 13-40 H eGFR (test code = 7898866728) 107.0 mL/min/1.73m2 KASHIF (test code = KASHIF) [...] imaging tests). Lab Interpretation (test code = 45343-4) [facility]normal [facility]:07[facility]* Test Item Value Reference Range Interpretation Comme nts LIPASE (test code = 3812246156) 111 U/L 0-220 Lab Interpretation (test cod e = 88667-1) Normal [facility] MET[facility]OLIC PANEL (46535)2023-04-22 00:07:45* Test Item Value Reference Range Interpretation Comme nts NA (test code = 5779674183) 141 mmol/L 135-145 K (test code = 4661250437) 3.6 mmol/L 3.5-5.0 CL (test code = 4809814193) 106 mmol/L 98-108 CO2 TOTAL (test code = 8112748020) 25 mmol/L 23-31 AGAP (test code = 7063484636) 10 2-16 BUN (test code = 3233411239) 12 mg/dL 7-23 GLUCOSE (test code = 2797683539) 91 mg/dL 70-110 CREATININE (test code = 3141366459) 0.61 mg/dL 0.50-1.04 TOTAL BILI (test code = 5135555052) 0.9 mg/dL 0.1-1.1 CALCIUM (test code = 0490143716) 8.9 mg/dL 8.6-10.6 T PROTEIN (test code = 6312998179) 7.6 g/dL 6.3-8.2 ALBUMIN (test code = 7325595176) 4.0 g/dL 3.5-5.0 ALK PHOS (test code = 8477008237) 81 U/L 34-122 ALTv (test code = 1742-6) 62 U/L 5-35 H AST(SGOT) (test code = 7067696402) 98 U/L 13-40 H eGFR (test code = 8100495520) 107.0 mL/min/1.73m2 KASHIF (test code = KASHIF) [...] imaging tests). Lab Interpretation (test code = 50546-1) [facility]normal [facility] 00:07:45* Test Item Value Reference Range Interpretation Comme nts LIPASE (test code = 0257263294) 111 U/L 0-220 Lab Interpretation (test cod e = 91380-7) Normal [facility]OLIC PAN[facility] (22494)2023-04-22 00:07:45* Test Item Value Reference Range Interpretation Comme nts NA (test code = 5471232441) 141 mmol/L 135-145 K (test code = 7442699196) 3.6 mmol/L 3.5-5.0 CL (test code = 3917354514) 106 mmol/L 98-108 CO2 TOTAL (test code = 0832009794) 25 mmol/L 23-31 AGAP (test code = 2047790200) 10 2-16 BUN (test code = 4206216159) 12 mg/dL 7-23 GLUCOSE (test code = 0716326125) 91 mg/dL 70-110 CREATININE (test code = 4876299998) 0.61 mg/dL 0.50-1.04 TOTAL BILI (test code = 6581093210) 0.9 mg/dL 0.1-1.1 CALCIUM (test code = 7463309366) 8.9 mg/dL 8.6-10.6 T PROTEIN (test code = 9188194308) 7.6 g/dL 6.3-8.2 ALBUMIN (test code = 4018246614) 4.0 g/dL 3.5-5.0 ALK PHOS (test code = 5494176857) 81 U/L 34-122 ALTv (test code = 1742-6) 62 U/L 5-35 H AST(SGOT) (test code = 8248983654) 98 U/L 13-40 H eGFR (test code = 6934683203) 107.0 mL/min/1.73m2 KASHIF (test code = KASHIF) [...] imaging tests). Lab Interpretation (test code = 25424-0) [facility]normal [facility] 00:07:45* Test Item Value Reference Range Interpretation Comme nts LIPASE (test code = 6565486724) 111 U/L 0-220 Lab Interpretation (test cod e = 66832-4) Normal [facility], [id number] 23:59:37* Test Item Value Reference Range Interpretation Comme nts PREG SERUM (test code = 3241521676) Negative KASHIF (test code = KASHIF) Less than 10 IU/L. ?If low titer or ectopic is suspected, resubmit specimen in 48-[address] [facility], [id number] 23:59:37* Test Item Value Reference Range Interpretation Comme nts PREG SERUM (test code = 5386387267) Negative KASHIF (test code = KASHIF) Less than 10 IU/L. ?If low titer or ectopic is suspected, resubmit specimen in 48-[address] [facility], [id number] 23:59:37* Test Item Value Reference Range Interpretation Comme nts PREG SERUM (test code = 0684478717) Negative KASHIF (test code = KASHIF) Less than 10 IU/L. ?If low titer or ectopic is suspected, resubmit specimen in 48-[address] [facility] WITH [id number] 23:49:04* Test Item Value Reference Range Interpretation [...] 34.0 g/dL 31.6-35.1 RDW-SD (test code = 32087-6) 44.9 fL 39.0-49.9 RDW-CV (test code = 788-0) 14.0 % 12.0-15.5 PLT (test code = 777-3) 288 See_Comment [Automated messa ge] The system which generated this result transmitted reference range: 166 - 358 10*3/?L. The reference range was not used to interpret this result as normal/abnormal. MPV (test code = 84052-0) 10.0 fL 9.5-12.9 NRBC/100 WBC (test code = 0374512434) 0.0 See_Comment [Automated me ssage] The system which generated this result transmitted reference range: 0.0 - 10.0 /100 WBCs. The reference range was not used to interpret this result as normal/abnormal. NRBC x10^3 (test code = 6372681021) See_Comment [Automated me ssage] The system which generated this result transmitted reference range: 10*3/?L. The reference range was not used to interpret this result as normal/abnormal. GRAN MAT (NEUT) % (test code = 770-8) 57.3 % IMM GRAN % (test code = 2419173551) 0.20 % LYMPH % (test code = 736-9) 34.7 % MONO % (test code = 5905-5) 6.0 % EOS % (test code = 713-8) 1.3 % BASO % (test code = 706-2) 0.5 % GRAN MAT x10^3(ANC) (test code = 3214319308) 5.05 10*3/uL 1.88-7.09 IMM GRAN x10^3 (test code = 6269580302) 0.00-0.06 LYMPH x10^3 (test code = 731-0) 3.05 10*3/uL 1.32-3.29 MONO x10^3 (test code = 742-7) 0.53 10*3/uL 0.33-0.92 EOS x10^3 (test code = 711-2) 0.11 10*3/uL 0.03-0.39 BASO x10^3 (test code = 704-7) 0.04 10*3/uL 0.01-0.07 [facility] WITH [id number] 23:49:04* Test Item Value Reference Range Interpretation Comme nts WBC (test code = 6690-2) 8.80 See_Comment [Automated messa ge] The system which generated this result transmitted reference range: 4.30 - 11.10 10*3/?L. The reference range was not used to interpret this result as normal/abnormal. RBC (test code = 789-8) 4.40 See_Comment [Automated [employer]] The system which generated this result [...] 34.0 g/dL 31.6-35.1 RDW-SD (test code = 94534-3) 44.9 fL 39.0-49.9 RDW-CV (test code = 788-0) 14.0 % 12.0-15.5 PLT (test code = 777-3) 288 See_Comment [Automated [employer]] The system which generated this result transmitted reference range: 166 - 358 10*3/?L. The reference range was not used to interpret this result as normal/abnormal. MPV (test code = 02830-9) 10.0 fL 9.5-12.9 NRBC/100 WBC (test code = 8562735621) 0.0 See_Comment [Automated me ssage] The system which generated this result transmitted reference range: 0.0 - 10.0 /100 WBCs. The reference range was not used to interpret this result as normal/abnormal. NRBC x10^3 (test code = 8795140759) See_Comment [Automated me ssage] The system which generated this result transmitted reference range: 10*3/?L. The reference range was not used to interpret this result as normal/abnormal. GRAN MAT (NEUT) % (test code = 770-8) 57.3 % IMM GRAN % (test code = 1779304948) 0.20 % LYMPH % (test code = 736-9) 34.7 % MONO % (test code = 5905-5) 6.0 % EOS % (test code = 713-8) 1.3 % BASO % (test code = 706-2) 0.5 % GRAN MAT x10^3(ANC) (test code = 1366341365) 5.05 10*3/uL 1.88-7.09 IMM GRAN x10^3 (test code = 3426782078) 0.00-0.06 LYMPH x10^3 (test code = 731-0) 3.05 10*3/uL 1.32-3.29 MONO x10^3 (test code = 742-7) 0.53 10*3/uL 0.33-0.92 EOS x10^3 (test code = 711-2) 0.11 10*3/uL 0.03-0.39 BASO x10^3 (test code = 704-7) 0.04 10*3/uL 0.01-0.07 [facility] WITH [id number] 23:49:04* Test Item Value Reference Range Interpretation [...] 34.0 g/dL 31.6-35.1 RDW-SD (test code = 15701-7) 44.9 fL 39.0-49.9 RDW-CV (test code = 788-0) 14.0 % 12.0-15.5 PLT (test code = 777-3) 288 See_Comment [Automated messa ge] The system which generated this result transmitted reference range: 166 - 358 10*3/?L. The reference range was not used to interpret this result as normal/abnormal. MPV (test code = 80436-1) 10.0 fL 9.5-12.9 NRBC/100 WBC (test code = 2256911218) 0.0 See_Comment [Automated me ssage] The system which generated this result transmitted reference range: 0.0 - 10.0 /100 WBCs. The reference range was not used to interpret this result as normal/abnormal. NRBC x10^3 (test code = 0369958987) See_Comment [Automated me ssage] The system which generated this result transmitted reference range: 10*3/?L. The reference range was not used to interpret this result as normal/abnormal. GRAN MAT (NEUT) % (test code = 770-8) 57.3 % IMM GRAN % (test code = 1584707683) 0.20 % LYMPH % (test code = 736-9) 34.7 % MONO % (test code = 5905-5) 6.0 % EOS % (test code = 713-8) 1.3 % BASO % (test code = 706-2) 0.5 % GRAN MAT x10^3(ANC) (test code = 1335207729) 5.05 10*3/uL 1.88-7.09 IMM GRAN x10^3 (test code = 3153132208) 0.00-0.06 LYMPH x10^3 (test code = 731-0) 3.05 10*3/uL 1.32-3.29 MONO x10^3 (test code = 742-7) 0.53 10*3/uL 0.33-0.92 EOS x10^3 (test code = 711-2) 0.11 10*3/uL 0.03-0.39 BASO x10^3 (test code = 704-7) 0.04 10*3/uL 0.01-0.07 [facility] WITH [id number] 01:21:02* Test Item Value Reference Range Interpretation [...] 33.2 g/dL 31.6-35.1 RDW-SD (test code = 63894-0) 46.4 fL 39.0-49.9 RDW-CV (test code = 788-0) 14.3 % 12.0-15.5 PLT (test code = 777-3) 263 See_Comment [Automated messa ge] The system which generated this result transmitted reference range: 166 - 358 10*3/?L. The reference range was not used to interpret this result as normal/abnormal. MPV (test code = 83142-6) 10.6 fL 9.5-12.9 NRBC/100 WBC (test code = 0346341193) 0.0 See_Comment [Automated [employer] ssage] The system which generated this result transmitted reference range: 0.0 - 10.0 /100 WBCs. The reference range was not used to interpret this result as normal/abnormal. NRBC x10^3 (test code = 2209106393) See_Comment [Automated messa ge] The system which generated this result transmitted reference range: 10*3/?L. The reference range was not used to interpret this result as normal/abnormal. GRAN MAT (NEUT) % (test code = 770-8) 52.2 % IMM GRAN % (test code = 9070212208) 0.40 % LYMPH % (test code = 736-9) 39.3 % MONO % (test code = 5905-5) 6.7 % EOS % (test code = 713-8) 0.9 % BASO % (test code = 706-2) 0.5 % GRAN MAT x10^3(ANC) (test code = 4695764169) 5.80 10*3/uL 1.88-7.09 IMM GRAN x10^3 (test code = 6272902002) 0.04 10*3/uL 0.00-0.06 LYMPH x10^3 (test code = 731-0) 4.35 10*3/uL 1.32-3.29 H MONO x10^3 (test code = 742-7) 0.74 10*3/uL 0.33-0.92 EOS x10^3 (test code = 711-2) 0.10 10*3/uL 0.03-0.39 BASO x10^3 (test code = 704-7) 0.05 10*3/uL 0.01-0.07 Lab Interpretation (test code = 19491-8) [facility]normal [facility] [id number] 01:11:58* Test Item Value Reference Range Interpretation Comme nts TROPONIN I (test code = 2554648585) 0.006 ng/mL <=0.034 KASHIF (test code = [...] of biotin. Lab Interpretation (test code = 03050-4) Normal [facility]. METABOLIC PANEL (04840)2023-03-12 01:01:21* Test Item Value Reference Range Interpretation Comme nts NA (test code = 4802810486) 139 mmol/L 135-145 K (test code = 7847184230) 3.9 mmol/L 3.5-5.0 CL (test code = 5573939234) 103 mmol/L 98-108 CO2 TOTAL (test code = 0354115754) 26 mmol/L 23-31 AGAP (test code = 5871637453) 10 2-16 BUN (test code = 2143182309) 8 mg/dL 7-23 GLUCOSE (test code = 2101682849) 92 mg/dL 70-110 CREATININE (test code = 6766313358) 0.62 mg/dL 0.50-1.04 TOTAL BILI (test code = 3084058450) 1.0 mg/dL 0.1-1.1 CALCIUM (test code = 7773329541) 9.2 mg/dL 8.6-10.6 T PROTEIN (test code = 9066802268) 8.9 g/dL 6.3-8.2 H ALBUMIN (test code = 1300554308) 4.3 g/dL 3.5-5.0 ALK PHOS (test code = 1193044442) 102 U/L 34-122 ALTv (test code = 1742-6) 68 U/L 5-35 H AST(SGOT) (test code = 0179002576) 86 U/L 13-40 H eGFR (test code = 3781819221) 105.1 mL/min/1.73m2 KASHIF (test code = KASHIF) [...] imaging tests). Lab Interpretation (test code = 92665-5) [facility]normal [facility]* Test Item Value Reference Range Interpretation Comme nts LIPASE (test code = 8543405521) 108 U/L 0-220 Lab Interpretation (test cod e = 00030-8) Normal [facility] [id number] 11:11:03* Test Item Value Reference Range Interpretation Comme nts TROPONIN I (test code = 2678082170) 0.009 ng/mL <=0.034 KASHIF (test code = [...] of biotin. Lab Interpretation (test code = 23668-4) [id number]:10:[facility]* Test Item Value Reference Range Interpretation Comme nts TROPONIN I (test code = 1196012625) 0.015 ng/mL <=0.034 KASHIF (test code = [...] of biotin. Lab Interpretation (test code = 96495-2) Normal [facility]. METABOLIC PANEL (87771)2023-02-03 01:27:17* Test Item Value Reference Range Interpretation Comme nts NA (test code = 4432231596) 139 mmol/L 135-145 K (test code = 5635033339) 3.8 mmol/L 3.5-5.0 CL (test code = 3914089643) 102 mmol/L 98-108 CO2 TOTAL (test code = 5315823006) 25 mmol/L 23-31 AGAP (test code = 0113731016) 12 2-16 BUN (test code = 6823551463) 15 mg/dL 7-23 GLUCOSE (test code = 7348813669) 126 mg/dL 70-110 H CREATININE (test code = 5384235176) 0.69 mg/dL 0.50-1.04 TOTAL BILI (test code = 0666855868) 1.0 mg/dL 0.1-1.1 CALCIUM (test code = 6489311305) 9.4 mg/dL 8.6-10.6 T PROTEIN (test code = 0111476383) 9.3 g/dL 6.3-8.2 H ALBUMIN (test code = 3034573372) 4.5 g/dL 3.5-5.0 ALK PHOS (test code = 8496303625) 135 U/L 34-122 H ALTv (test code = 1742-6) 112 U/L 5-35 H AST(SGOT) (test code = 3498871839) 201 U/L 13-40 H eGFR (test code = 7359462235) 92.9 mL/min/1.73m2 KASHIF (test code = KASHIF) [...] imaging tests). Lab Interpretation (test code = 83865-8) Abnormal [facility] 01:27:17* Test Item Value Reference Range Interpretation Comme nts LIPASE (test code = 5636993422) 69 U/L 0-220 Lab Interpretation (test cod e = 09313-0) Normal [facility] WITH [id number] 01:17:35* Test Item Value Reference Range Interpretation Comme nts WBC (test code = 6690-2) 13.07 See_Comment H [Automated [employer]] The system which generated this result transmitted [...] 32.8 g/dL 31.6-35.1 RDW-SD (test code = 32829-8) 47.7 fL 39.0-49.9 RDW-CV (test code = 788-0) 14.9 % 12.0-15.5 PLT (test code = 777-3) 326 See_Comment [Automated messa ge] The system which generated this result transmitted reference range: 166 - 358 10*3/?L. The reference range was not used to interpret this result as normal/abnormal. MPV (test code = 00129-7) 9.6 fL 9.5-12.9 NRBC/100 WBC (test code = 5663304627) 0.0 See_Comment [Automated [employer] ssage] The system which generated this result transmitted reference range: 0.0 - 10.0 /100 WBCs. The reference range was not used to interpret this result as normal/abnormal. NRBC x10^3 (test code = 2484022534) See_Comment [Automated messa ge] The system which generated this result transmitted reference range: 10*3/?L. The reference range was not used to interpret this result as normal/abnormal. GRAN MAT (NEUT) % (test code = 770-8) 59.7 % IMM GRAN % (test code = 4959625893) 0.30 % LYMPH % (test code = 736-9) 33.4 % MONO % (test code = 5905-5) 5.3 % EOS % (test code = 713-8) 0.8 % BASO % (test code = 706-2) 0.5 % GRAN MAT x10^3(ANC) (test code = 6453084029) 7.80 10*3/uL 1.88-7.09 H IMM GRAN x10^3 (test code = 3600419589) 0.04 10*3/uL 0.00-0.06 LYMPH x10^3 (test code = 731-0) 4.37 10*3/uL 1.32-3.29 H MONO x10^3 (test code = 742-7) 0.69 10*3/uL 0.33-0.92 EOS x10^3 (test code = 711-2) 0.10 10*3/uL 0.03-0.39 BASO x10^3 (test code = 704-7) 0.07 10*3/uL 0.01-0.07 Lab Interpretation (test code = 50445-2) Abnormal [facility] [id number] 00:43:00* Test Item Value Reference Range Interpretation Comme nts POCT PREG (test code = 1605) Negative On board controls acceptable with C Line (test code = 3574) Yes POCT PREG LOT # (test code = 3575) [id number] POCT PREG TEST DATE ( test code = 3576) 07-09-2024 Lab Interpretation (test cod e = 67157-4) Normal [facility] MOLECULAR [id number] 19:47:14* Test Item Value Reference Range Interpretation Comme nts POCT Molecular FluA (test co de = 27434-2) Negative Negative POCT Molecular FluB (test co de = 61562-0) Negative Negative Lab Interpretation (test cod e = 08786-5) Normal [facility] MOLECULAR [id number] 19:47:14* Test Item Value Reference Range Interpretation Comme nts POCT Molecular FluA (test co de = 28312-6) Negative Negative POCT Molecular FluB (test co de = 11879-8) Negative Negative Lab Interpretation (test cod e = 31646-1) Normal [facility] MOLECULAR [id number] 19:47:14* Test Item Value Reference Range Interpretation Comme nts POCT Molecular FluA (test co de = 21553-6) Negative Negative POCT Molecular FluB (test co de = 59188-6) Negative Negative Lab Interpretation (test cod e = 84387-1) Normal [facility] [id number] 19:47:14* Test Item Value Reference Range Interpretation Comme nts POCT Molecular FluA (test co de = 87100-4) Negative Negative POCT Molecular FluB (test co de = 67400-6) Negative Negative Lab Interpretation (test cod e = 70010-5) Normal [facility] History and Physical Notes Date/Time Note Provider Source 2023-02-25 23:16:40 Formatting of this n ote is different from the original. [facility] Hospitalist Admission H&P Date of Service: [...] prior to CTA head/neck. History obtained from [facility]: "Pt was making lunch approx 1400 when she started to feel dizzy, diaphoretic with chest pressure. Snyder like she was going to pass out [...] The superior cerebellar arteries are patent. Both PLATEN PRESS FEEDER are widely patent. No sizable P-comm is [...] prior to CTA head/neck. History obtained from [facility]: "Pt was making lunch approx 1400 when she started to feel dizzy, diaphoretic with chest pressure. Snyder like she was going to pass out [...] The superior cerebellar arteries are patent. Both PLATEN PRESS FEEDER are widely patent. No sizable P-comm is [...] user?: no Patient will require observation [place] DETAIL SUPERVISOR was verified during stay Roman Mena MD [facility] Notes Date/Time Note Provider Source 2024-04-16 00:55:00 Registration at bedside Shy Machado RN [facility] 2024-04-16 00:45:00 Pt medicated as ordered. Vitals rechecked. Educated on interventions. DC instructions reviewed with pt by this RN. Pt verbalized understanding. No reaction to medications given during admission. AOx4, rr even and unlabore on ra, skin warm and dry. DC hold d/t pt wanting to finish IVF. T [facility] 2024-04-16 00:38:49 [place] tray provided by for po challenge. T [facility] 2024-04-16 00:28:11 Pt refusing toradol. Reports she thinks it "messes with my stomach." Requesting tylenol. Dr Mcduffie notified. At bedside re-assessing pt T [facility] 2024-04-16 00:18:17 Pt back from US. T [facility] 2024-04-15 22:05:16 Pt remains in US. Daksha Crump RN [facility] 2024-04-15 21:32:23 Patient to US via . Meredith Solis RN [facility] 2024-04-15 20:32:55 Patient returned from imaging, patient ambulatory to and from the restroom with steady gait. Urine sample collected. [facility] 2024-04-15 19:05:00 Received report from Tierra MCKAY. Patient currently in ED green chair accompanied by family member. [facility] 2024-04-15 18:44:32 Red Slater is a 44 year old female Patient arrives via personal means with complaint of abdominal pain, N/V. Pt was at other ED but did get any relief. Patient is alert and oriented times X 4, even and unlabored respirations visualized. Green pool due to saturation. Tierra Grover RN [facility] 2024-04-13 19:00:00 Pt given printed and verbal discharge instructions regarding UTI, encouraged hydration, Prescription x2 sent to pharmacy Discussed ibuprofen and to take with food to avoid GI distress. Discussed antibiotic therapy and to take until all completed unless adverse reaction occurs - if occurs, discontinue medication and follow up with pcp/seek medical attention Pt verbalized understanding of instructions, pt awake alert oriented, resp reg unlabored, skin w/d, color appropriate for race, moves all ext well,pt encouraged to follow up with pcp. Advised to seek medical attention for new/prolonged/worsening of symptoms. No adverse reaction to meds given in ER noted upon discharge PIV d'cd, dressing to site, catheter in tact. Awake, alert oriented, resp reg unlabored, skin w/d, pt leaving ambulatory, in no apparent distress, Shruthi Thorne RN [facility] 2024-04-13 14:10:40 Pt states she woke up this morning having abdominal pain and it got worse throughout the day. Ann Marie Osorio RN [facility] 2024-04-13 10:18:36 Images from the original note were not included. Scanned in folder and placed in provider basket for review. Destinee Henley [facility] 2024-03-23 14:04:39 Spoke with Anabelle at [facility] pharmacy and verbal order was given. No further action needed. Julito Holder LVN [facility] 2024-03-23 13:40:07 Fine to call in verbal ok [facility] 2024-03-23 13:21:21 Images from the original note were not included. Received fax from [facility], Dr. Zuluaga needs to sign and form needs to be faxed back. Please see below: Romina Vazquez [facility] 2024-02-26 16:25:00 Regarding: APPTES Rheum ----- Message from Ebony Alexander sent [...] getting worse APPT ESC Tala Elise RN [facility] 2024-02-26 16:25:00 Nurse's Note: 4:59 PM [...] present > 3 days Protocols used: Shoulder Depq-JCDOB-OB Tala Elise RN 02/26/2024 5:14 PM [facility] 2024-02-26 16:25:00 FWD to PSS, for appointment. Referral to Rheumatology made 02/19/2024? Fauzia Ch RN [facility] 2024-02-19 13:43:20 Patient is scheduled for testing. Matthew Fernandez [facility] 2024-02-19 12:06:51 Red Slater is a 44 year old female calling to schedule vascular lab US orders. Please assist [phone] (home) Whit Elise [facility] 2024-02-18 15:48:24 Forwarding to provider for review. Matthew Jaquez RN [facility] 2024-02-18 15:38:25 Red Slater is a 44 year old female Calling to see if dr is still going to send medication for sinus and pain today. Pt says the where discussed in appt but not sent Jessica Alvarez [facility] 2024-01-28 11:29:37 Forwarded to provider Rosa Castrejon MA [facility] 2024-01-28 11:17:47 Red Slater is a 44 year old female Pt was seen at the ER last night and prescribed esomeprazole 40 mg. Her insurance will not cover it and she is asking if Sabino Simmons could prescribe an alternative since the ER cannot or suggest an otc. [facility] [address] [place] [id number] Kaya Marshallxton [facility] 2024-01-27 21:50:44 Discussed and reviewed discharge instructions, follow up care with PCP, and prescription medications with patient. Pt verbalizes understanding without questions. Pt assisted to ER lobby with family. Discharged ambulatory, aaox4, breathing even/unlabored, in no acute distress. hSruthi Tucker RN [facility] 2024-01-27 21:20:47 Report received from Malia MCKAY. Mahesh Polanco RN [facility] 2024-01-27 20:04:57 Pt independently ambulatory too rr with UA sample collection cup Malia Mcdonough RN [facility] 2024-01-27 19:36:55 Pt transported to room via stretcher T [facility] 2024-01-27 19:23:11 Pt transported via stretcher to CT T [facility] 2024-01-27 18:08:00 Red Slater is a [...] established, continuous monitor connected, awaiting further updates. [facility] 2024-01-27 16:14:24 Red Slater is a 44 year old female presents to ED c/o abdominal pain x 4 days reports worsened with oral intake. PMH autoimmune disease. Pt is aox4 with gcs 15 skin warm and dry resp even and unlabored. NAD noted. Pt placed in green pool due to ED saturation. Yanna Alegria RN [facility] 2024-01-27 14:45:49 Forms faxed to [facility] Urology and conformation [facility] Castrejon Rosa Castrejon MA [facility] 2024-01-26 09:24:13 Form placed in provider folder for review. Jailyn De La O MA [facility] 2024-01-26 09:14:17 Images from the original note were not included. Nida Gutierrez [facility] 2023-11-28 10:14:23 VIT D 25OH (ng/mL) Date Value 11/26/2023 17 (L) [facility] 2023-11-26 14:15:00 Images from the original note were not included. Venipuncture collection performed by clean technique on the left anticubitus. Total of 1 attempts were made. Slight pressure and a bandage/dressing were applied to the site(s). The patient experienced no complications. The following specimens were processed according to instructions and sent to [facility] laboratories per lab order on 11/26/2023 : LT BLUE SST 4 RED LAV 1 PPT DK GREEN (LiHep) DK GREEN (SodH) NGO DK BLUE (K2) DK BLUE (S) ACD Blood Culture NIPT/NTD [facility] 2023-10-10 15:45:00 Images from the original note were not included. Venipuncture collection performed by clean technique on the right anticubitus. Total of 1 attempts were made. Slight pressure and a bandage/dressing were applied to the site(s). The patient experienced no complications. The following specimens were processed according to instructions and sent to [facility] laboratories per lab order on 10/10/2023 : LT BLUE SST 1 RED LAV 1 PPT DK GREEN (LiHep) LT GREEN (LiHep) NGO DK BLUE (K2) DK BLUE (S) ACD Blood Culture NIPT Urine Urine Culture T [facility] 2023-10-03 18:40:11 Pt discharged with diagnosis of muscle strain of chest wall. Printed and verbal instructions reviewed with and given to patient. No new prescriptions given for this visit. Pt verbalized understanding of teaching and recommended follow-up. Denies questions or concerns at this time. Pt ambulatory at discharge. Appears in no apparent distress. No ataxia noted. Waiting in lobby for transportation home. INTERCEPT CONTROLLER Sayda Arauz RN [facility] 2023-10-03 15:05:23 [facility][1] states: "Pt started having chest pain 1 hour ago. She was doing laundry. She did have some nausea on and off. Her pain is in her left chest. I gave 324 mg apirin and 1 NTG. She has a history of HTN and has been out of her meds" INTERCEPT CONTROLLER Kayli Vital RN [facility] - Health 2023-10-03 15:00:00 [facility] Emergency Department Note Patient Name: Red Slater Date of : 1980 43 year old female Treatment Room: Room/bed info not found Primary Care Physician: Randy Chauhan Patient Escorted by: Self [9] Mode of Arrival: EMS - [facility] [43] EMS Treatment Prior to ED Arrival: CHOCOLATIER treatment: Other (comment) CHOCOLATIER treatment comments: see triage note Travel and [...] reported diagnosis 1985 during surgery HTN (hypertension) Morbid obesity with [...] Delivery OR Location-[place] DRAINAGE LYMPH NODE,SIMPLE 1986 ESOPHAGOGASTRODUODENOSCOPY N/A 04/25/2023 Surgeon: Marcos Rodriguez MD; Location: ENDOSCOPY ([facility]) OR LOCATION LAPAROSCOPIC ROBOTIC ASSISTED CHOLECYSTECTOMY N/A 04/29/2023 Surgeon: Antoinette Mccullough MD; Location: [facility] OR LOCATION TUBAL LIGATION N/A 03/27/2021 Surgeon: [...] signed by: Taylor Bynum DO 10/03/23 1827 INTERCEPT CONTROLLER [facility] 2023-09-30 14:47:48 Called patient, no answer, left voicemail asking patient to call back to clinic, left clinic phone#. NA Xiong LVN [facility] 2023-09-29 15:45:21 Red Slater is a 43 year old female Patient is calling requesting a sooner appt and states she has a flare up. Please advise. [phone] (home) Future Appointments In 1 month Javi Mcpherson MD [facility] D[facility], [facility] INTERCEPT CONTROLLER Nicki Melgar [facility] 2023-04-08 19:32:52 Formatting of this n ote might be different from the original. Pt dc'd home ambulatory with follow up instructions. Pt v/u of dc instructions. Lianet Cabrera RN [facility] 2023-04-08 16:32:31 Formatting of this n ote might be different from the original. Right leg pain for a "few weeks". Sometimes the leg gets numb. Has appt on for symptoms. Rachel Sue RN [facility] 2023-03-14 17:01:16 Formatting of this n ote might be different from the original. Pt discharged home. Given all education and information regarding s/s of worsening condition. Gave info regarding result follow up on my chart and importance of pcp follow up. Pt verbalized understanding. Alert and ambulatory to lobby. Awaiting ride. [facility] 2023-03-14 16:54:36 Formatting of this n ote might be different from the original. Patient to ed via pov. Alert and ambulatory. Vss. C/o runny nose and "feeling feverish" onset yesterday. Denies vomiting. Jacqui Campbell RN [facility] 2023-03-14 16:53:00 Formatting of this n ote is different from the original. [facility] Emergency Department Note Patient Name: Red Slater Date of : 1980 43 year old female Treatment Room: [facility] Primary Care Physician: Randy Chauhan Patient Escorted [...] Isaac MD; Location: Labor and Delivery [facility] DRAINAGE LYMPH NODE,SIMPLE 1985 TUBAL LIGATION N/A 03/27/2021 Surgeon: Herminio Isaac MD; Location: Labor and Delivery OR Location[facility] Review of Systems: Review of Systems Constitutional: [...] Eval: ED Events Date/Time Event User Comments 03/14/231652 Medical [...] the patient for COVID. Recommend she is [id number] cough and cold medications as needed for her symptoms. She remained stable here in the ER and is okay for discharge home with PCP follow-up. She can follow-up with the results of the COVID test on the [facility]. Problems Addressed: Upper respiratory tract infection, [...] Follow-up: Electronically signed by: Kassy Gutierrez DO 03/14/23 1702 T [facility] 2023-03-14 08:28:10 Formatting of this n ote might be different from the original. I called pt to ask about the pantoprazole suspension ordered. No answer, I left VM with my call back number. [facility] 2023-03-13 18:04:20 Formatting of this n ote might be different from the original. Red Slater is a 43 year old female, Priyank with [facility] calling regarding rx for pantoprazole. Has a quantity of 1 listed. Please send updated rx. [facility] [address] [place] [id number] [facility] Crystal Mujica [facility] 2023-03-13 11:00:00 Addended by: BOAZ DELGADO on: 03/13/2023 04:23 PM Modules accepted: Level of Service [facility] 2023-03-11 20:58:50 Formatting of this n ote [...] in no apparent distress, Mary Zazueta RN [facility] 2023-03-11 17:40:35 Formatting of this n ote might be different from the original. Patient to ED for abdominal pain x 2 weeks. Concerned because she can't eat and lost her prescriptions for UTI she has. Lea Johnson RN [facility] 2023-02-26 19:15:50 Summary: RN DC note [...] assistance. Patient being wheeled off unit by [facility]. Angela Omalley RN [facility] 2023-02-26 16:23:29 Formatting of this n ote might be different from the original. Problem: Discharge Planning Goal: Adequate for discharge 02/26/2023 1623 by Angela Omalley RN Outcome: [...] Actual) Goal: Prevention of new skin breakdown 02/26/20231622 by Angela Omalley RN Outcome: Adequate for discharge 02/26/2023 144 by Angela Omalley RN Outcome: Progressing as expected [facility] 2023-02-26 14:46:53 Formatting of this n ote [...] new skin breakdown Outcome: Progressing as expected [facility] 2023-02-26 01:37:41 Formatting of this n ote [...] new skin breakdown Outcome: Progressing as expected Ariella Hope RN [facility] 2023-02-25 18:58:38 Formatting of this n ote might be different from the original. Nurse Report Report given to Ariella MCKAY, Chief complaint, assessment findings, infusion verify and orders reviewed. Maria C Tejeda RN Maria C Tejeda RN [facility] 2023-02-25 17:15:00 Formatting of this n ote might be different from the original. Ambulated to bathroom without distress, pt current on menses T [facility] 2023-02-25 15:54:00 Formatting of this n ote might be different from the original. Return to room on diagnostic cardiac sonographer with RN, pt with no neuro deficits, shana dent from, speech clear T [facility] 2023-02-25 15:35:00 Formatting of this n ote might be different from the original. To CT on diagnostic cardiac sonographer RN with T [facility] 2023-02-25 15:15:00 Formatting of this n ote might be different from the original. After Dr leaving room pt moved her leg stated she has had issues for a couple months with a heavy leg, states basically she just lays in bed all day. T [facility] 2023-02-25 15:09:00 Formatting of this n ote might be different from the original. While Dr. Meyers in room assessing pt stating she could not move her left leg, Dr decided to call code stroke, T [facility] 2023-02-25 14:40:51 Formatting of this n ote might be different from the original. Pt was making lunch approx 1400 when she started to feel dizzy, diaphoretic with chest pressure. Snyder like she was going to pass out and started hyperventilating. Snyder like her left side was tingly. Has GI appt on . States she hasn't been able to eat right for a month and it causes her stomach to hurt. Rachel Sue RN [facility] 2023-02-25 14:31:00 Formatting of this n ote is different from the original. [facility] Emergency Department Note Patient Name: Red Slater Date of : 1980 43 year old female Treatment Room: TX5/TX5 Primary Care Physician: Randy Chauhan Patient Escorted by: Self [9] Mode of Arrival: EMS - [place] [47] EMS Treatment Prior to ED Arrival: [...] and numbness. Physical Exam: ED Triage Vitals [08/01/23 1445] Weight 163.9 kg (361 lb 6.4 [...] prior to CTA head/neck. History obtained from [facility]: "Pt was making lunch approx 1400 when she started to feel dizzy, diaphoretic with chest pressure. Snyder like she was going to pass out [...] The superior cerebellar arteries are patent. Both PLATEN PRESS FEEDER are widely patent. No sizable P-comm is [...] prior to CTA head/neck. History obtained from [facility]: "Pt was making lunch approx 1400 when she started to feel dizzy, diaphoretic with chest pressure. Snyder like she was going to pass out [...] The superior cerebellar arteries are patent. Both PLATEN PRESS FEEDER are widely patent. No sizable P-comm is [...] GLUCOSE(AGE >30DAYS) URINALYSIS TROPONIN I LIPID PANEL (19769)(TOTAL CHOLESTEROL, TRIGLYCERIDES, HDL) THYROID STIMULATING HORMONE EKG: [...] this a planned re-admission?: No Treatment Team: [facility] [[id number]] Is this patient COVID positive or a [...] medications on file Follow-up: Electronically signed by: Baiorn Meyers MD 02/25/23 0844 T [facility]
--- NOTE | 2024-04-21 01:45 | EDPHYS ---
Physician Documentation [facility] Name: Red Slater Age: 44 yrs Sex: Female : 1980 Arrival Date: 04/21/2024 Time: : Bed 17 Private MD: ED Physician Po Paiz HPI: 04/21 01:40 This 44 yrs old Female presents to ER via Unassigned with complaints of sp3 abdominal pain. 01:40 44-year-old female with history of obesity and chronic abdominal pain and ovarian cyst sp3 now presents to the ED for recurrent abdominal pain. Patient has recently been seen here as well as [facility]. She has an appointment for April 27 at her gynecology clinic for her first visit. Vital signs are normal for EMS. She denies any other symptoms including fever, headache, URI symptoms, chest pain, shortness of breath, vomiting, diarrhea, rash, syncope, near syncope, , or any other signs or symptoms on ROS at this time.. 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 - Infectious Disease History:: Denies. - Social history:: Smoking status: Patient reports the use of cigarette tobacco products, PAST, Patient/guardian denies using alcohol, street drugs. ROS: 01:41 Constitutional: Negative for fever, chills, and weight loss, Eyes: Negative for injury, sp3 pain, redness, and discharge, ENT: Negative for injury, pain, and discharge, Neck: Negative for injury, pain, and swelling, Cardiovascular: Negative for chest pain, palpitations, and edema, Respiratory: Negative for shortness of breath, cough, wheezing, and pleuritic chest pain, Back: Negative for injury and pain, MS/Extremity: Negative for injury and deformity, Skin: Negative for injury, rash, and discoloration, Neuro: Negative for headache, weakness, numbness, tingling, and seizure, Psych: Negative for depression, anxiety, suicide ideation, homicidal ideation, and hallucinations, Allergy/Immunology: Negative for hives, rash, and allergies, Endocrine: Negative for neck swelling, polydipsia, polyuria, polyphagia, and marked weight changes, Hematologic/Lymphatic: Negative for swollen nodes, abnormal bleeding, and unusual bruising, 01:41 All other systems are negative, Exam: 01:41 Constitutional: This is a well developed, well nourished patient who is awake, alert, sp3 and in no acute distress. Head/Face: Normocephalic, atraumatic. Eyes: Pupils equal round and reactive to light, extra-ocular motions intact. Lids and lashes normal. Conjunctiva and sclera are non-icteric and not injected. Cornea within normal limits. Periorbital areas with no swelling, redness, or edema. Neck: Trachea midline, no thyromegaly or masses palpated, and no cervical lymphadenopathy. Supple, full range of motion without nuchal rigidity, or vertebral point tenderness. No Meningismus. Chest/axilla: Normal chest wall appearance and motion. Nontender with no deformity. No lesions are appreciated. Cardiovascular: Regular rate and rhythm with a normal S1 and S2. No gallops, murmurs, or rubs. Normal PMI, no JVD. No pulse deficits. Respiratory: Lungs have equal breath sounds bilaterally, clear to auscultation and percussion. No rales, rhonchi or wheezes noted. No increased work of breathing, no retractions or nasal flaring. Back: No spinal tenderness. No costovertebral tenderness. Full range of motion. Skin: Warm, dry with normal turgor. Normal color with no rashes, no lesions, and no evidence of cellulitis. MS/ Extremity: Pulses equal, no cyanosis. Neurovascular intact. Full, normal range of motion. Neuro: Awake and alert, GCS 15, oriented to person, place, time, and situation. Cranial nerves II-XII grossly intact. Motor strength 5/5 in all extremities. Sensory grossly intact. Cerebellar exam normal. Normal gait. Psych: Awake, alert, with orientation to person, place and time. Behavior, mood, and affect are within normal limits. 01:41 Abdomen/GI: Diffuse mild abdominal pain without peritoneal signs, rebound or guarding limited by obesity., Vital Signs: 01:30 BP 111 / 93; Pulse 86; Resp 18 S; Temp 98.7(O); Pulse Ox 100% on R/A; br2 02:01 BP 150 / 90; Pulse 89; Resp 18 S; Pulse Ox 99% on R/A; br2 MDM: 01:35 Patient medically screened. sp3 01:41 Data reviewed: vital signs, nurses notes, old medical records. sp3 01:43 ED course: 44-year-old female with continued chronic abdominal pain. Reviewed CT scan sp3 from January as well as ultrasound. We will treat pain in the ED and patient can follow-up with her asset management analyst at her already scheduled appointment. No further indication for imaging or blood work in the ED today.. Administered Medications: 01:53 Drug: HYDROcodone-acetaminophen PO 5 mg-325 mg 2 tabs PO once Route: PO; br2 02:20 Follow up: Response: No adverse reaction; Pain is decreased ha1 02:20 Follow up: Response: No adverse reaction; Pain is decreased; RASS: Alert and Calm (0) ha1 Disposition Summary: 04/21/24 01:44 Discharge Ordered Notes: Location: Home sp3 Condition: Stable sp3 Diagnosis - Abdominal pain, ovarian cyst, renal cyst sp3 Followup: sp3 - With: Private Physician - When: Upon discharge from the Emergency Department - Reason: Continuance of care Discharge Instructions: - Discharge Summary Sheet sp3 - Ovarian Cyst sp3 Forms: - Medication Reconciliation Form sp3 - Antibiotic Education sp3 - Prescription Opioid Use sp3 - Patient Portal Instructions sp3 - Leadership Thank You Letter sp3 Prescriptions: - Tramadol 50 mg Oral Tablet - take 1 tablet ORAL route every 8 hours as needed; 12 tablet; Refills: 0, sp3 Product Selection Permitted Signatures: Po Paiz MD MD sp3 Mary Bullock RN RN ha1 Nadya Villeda RN RN br2 Corrections: (The following items were deleted from the chart) 01:55 01:55 PMHx: Sneddon-Wilkenson; br2 br2 01:55 01:55 PMHx: Hypertensive disorder; br2 br2 01:55 01:55 PSHx: section; br2 br2
--- NOTE | 2024-04-21 01:45 | ER ---
Nurse's Notes [facility] Name: Red Slater Age: 44 yrs Sex: Female : 1980 Arrival Date: 04/21/2024 Time: : Bed 17 Private MD: Diagnosis: Abdominal pain, ovarian cyst, renal cyst Presentation: 04/21 01:30 Chief complaint: Patient states: PT ARRIVES VIA EMS C/O LEFT LOWER ABDOMINAL PAIN AND br2 NAUSEA. PT WAS RECENTLY AT [facility] AND TOLD SHE HAS AN OVARIAN CYST. Coronavirus screen: Client denies travel out of the [place] in the last 14 days. At this time, the client does not indicate any symptoms associated with coronavirus-19. Ebola Screen: Patient denies exposure to infectious person. 01:30 Method Of Arrival: EMS: [facility] br2 01:30 Initial Sepsis Screen: Does the patient meet any 2 criteria? No. Patient's initial br2 sepsis screen is negative. Initial Sepsis Screen: Does the patient have a suspected source of infection? No. Patient's initial sepsis screen is negative. Risk Assessment: Do you want to hurt yourself or someone else? Patient reports no desire to harm self or others. Onset of symptoms was April 20, 2024 at 23:00. 01:30 Acuity: PETE 3 br2 Triage Assessment: 01:55 General: Appears uncomfortable, obese. General: Behavior is anxious, crying, restless. br2 Pain: Complains of pain in left lower quadrant Pain radiates to left lower back. EENT: No deficits noted. No signs and/or symptoms were reported regarding the EENT system. Neuro: No deficits noted. Mccoy Agitation-Sedation Scale (RASS): 0 - Alert and Calm Level of Consciousness is awake, alert, obeys commands, confused, Oriented to person, place, time. Cardiovascular: No deficits noted. Reports None. Respiratory: No deficits noted. Airway is patent. GI: Reports lower abdominal pain, nausea. : No deficits noted. No signs and/or symptoms were reported regarding the genitourinary system. Derm: No deficits noted. No signs and/or symptoms reported regarding the dermatologic system. Musculoskeletal: No deficits noted. No signs and/or symptoms reported regarding the musculoskeletal system. 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 - Infectious Disease History:: Denies. - Social history:: Smoking status: Patient reports the use of cigarette tobacco products, PAST, Patient/guardian denies using alcohol, street drugs. Screenin:30 [facility] ED Fall Risk Assessment (Adult) History of falling in the last 3 months, br2 including since admission No falls in past 3 months (0 pts) Confusion or Disorientation No (0 pts) Intoxicated or Sedated No (0 pts) Impaired Gait No (0 pts) Mobility Assist Device Used No (0 pt) Altered Elimination No (0 pt) Score/Fall Risk Level 0 - 2 = Low Risk Oriented to surroundings, Maintained a safe environment. Abuse screen: Denies threats or abuse. Denies injuries from another. Nutritional screening: No deficits noted. Tuberculosis screening: No symptoms or risk factors identified. Assessment: 01:30 Reassessment: SEE TRIAGE ASSESSMENT. br2 02:20 Reassessment: PT TEARFUL AND REQUESTING TO SPEAK TO THE "CUSTOMER FACILITIES SUPERVISOR" BECAUSE SHE NEEDS br2 HELP. NELY JOHNSON SPOKE TO PT AND SHE DEMANDED TO SPEAK TO SOMEONE ELSE. HOUSE SUPERVISIOR MOISÉS RN AT BEDSIDE TALKING TO PATIENT. PT IS REQUESTING TO BE TRANFERRED TO [facility]. 02:26 Reassessment: spoke with patient explained discharge instructions pt tearful reports kl truck broke down and does not have way home offered wheel chair assistance to lobby pt refused to sign discharge instructions but did accept discharge packet prescription given pt left ER via wheelchair. Vital Signs: 01:30 BP 111 / 93; Pulse 86; Resp 18 S; Temp 98.7(O); Pulse Ox 100% on R/A; br2 02:01 BP 150 / 90; Pulse 89; Resp 18 S; Pulse Ox 99% on R/A; br2 ED Course: 01:30 Patient has correct armband on for positive identification. Placed in gown. Bed in low br2 position. Call light in reach. Side rails up X 1. Provided Education on:. 01:32 Patient arrived in ED. br2 01:32 Inserted saline lock: 20 gauge in right antecubital area, using aseptic technique. ha1 Flushed with 10 mL NS. 01:35 Paiz, Setul, MD is Attending Physician. sp3 01:35 Appears agitated. Appears tearful. br2 01:35 No provider procedures requiring assistance completed. br2 01:37 Nadya Villeda RN is Primary Nurse. br2 01:55 Triage completed. br2 02:01 IV discontinued, intact, bleeding controlled, No redness/swelling at site. Pressure ha1 dressing applied. 02:01 Arm band placed on right wrist. br2 Administered Medications: 01:53 Drug: HYDROcodone-acetaminophen PO 5 mg-325 mg 2 tabs PO once Route: PO; br2 02:20 Follow up: Response: No adverse reaction; Pain is decreased ha1 02:20 Follow up: Response: No adverse reaction; Pain is decreased; RASS: Alert and Calm (0) ha1 Medication: 02:30 VIS not applicable for this client. ha1 Outcome: 01:44 Discharge ordered by . sp3 02:29 Discharged to [facility] 02:29 Condition: stable 02:29 Discharge instructions given to patient, Instructed on discharge instructions, follow up and referral plans. medication usage, Demonstrated understanding of instructions, follow-up care, medications, Prescriptions given X 1, 02:29 Discharged to home via wheelchair, br2 02:29 Condition: good 02:29 Discharge instructions given to patient, Instructed on discharge instructions, follow up and referral plans. medication usage, Demonstrated understanding of instructions, follow-up care, medications, Prescriptions given X 1, 02:30 Patient left the ED. Signatures: Mayr Richardson RN RN Po Paiz MD MD sp3 Mary Bullock RN RN ha1 Nadya Villeda RN RN br2 Corrections: (The following items were deleted from the chart) 01:55 01:55 PMHx: Sneddon-Wilkenson; br2 br2 01:55 01:55 PMHx: Hypertensive disorder; br2 br2 01:55 01:55 PSHx: section; br2 br2 04:35 02:20 Response: No adverse reaction; Pain is decreased ha1 ha1
[2024-04-21] MEDS ORDERED: HYDROCODONE/APAP 5/325 MG TAB ONE (01:47)
[2024-04-21 02:36] VITALS: BP 150/90; TEMP 98.7; O2SAT 99
== END 2024-04-21 02:30 | disposition home or self-care (01) ==
LOC: ER 01:25
DX: R10.9 Unspecified abdominal pain (principal); N83.209 Unspecified ovarian cyst, unspecified side; N28.1 Cyst of kidney, acquired
CPT/HCPCS: 99284

== ENCOUNTER 2024-06-27 00:34 | Emergency (ER) | payer OTHER ==
--- OUTSIDE RECORDS SUMMARY | 2024-06-27 00:43 | XMS REPORT | Continuity of Care Document ---
Author Name Unknown Address [address] [facility] [address] [place] [address] [facility] thconnect Address [address] [place] [address] Care Team Providers Care Process Tank Tender Name Role Phone Sabino Simmons NP Primary Care Physician [phone] EKTA ESPINOZA Attending Clinician VIOLET Lam Attending Clinician Unavailab BERTIN Burgos Attending Clinician Unavaila BERTIN Rene Attending Clinician UnavailJAVI Blevins Attending Clinician Unavailab ROMINA Garner Attending Clinician Unavailable ROMINA MCDUFFIE Attending Clinician Unavailable LIANET MCKEON Attending Clinician Unavailable LIANET MCKEON Attending Clinician Unavailable SABINO SIMMONS Attending Clinician Unavailab SABINO Carreon Attending Clinician Unavailab le Doctor Unassigned, Mosses Attending Clinician U navailable DENY RODRIGUEZ Attending Clinician Unavailable Niecy Kang MD Attending Clinician [phone] Carlos SISAL OPERATOR, Sabino Attending Clinician [phone], [facility] Attending Clinician Unavailable ANTOINETTE MCCULLOUGH Attending Clinician UnavailROSA Hayes Attending Clinician Unavailable Selina Arechiga Attending Clinician [phone] [facility] Attending Clinician Unavailable Jared Gale MD Attending Clinician + [phone] JARED GALE Attending Clinician Unavaila DIANE Freeman Attending Clinician Unavailable DAMION HAMLIN Attending Clinician Unavailable DAMION HAMLIN Attending Clinician Unavailable Damion Hamlin MD Attending Clinician +[phone] Rosa Leo Attending Clinician +[phone] KAYDEN MCDUFFIE Attending Clinician Unavailable KAYDEN MCDUFFIE Attending Clinician Unavailable Kayden Mcduffie MD Attending Clinician [phone] NADIYA BELLAMY Attending Clinician Unavailable NADIYA BELLAMY Attending Clinician Unavailable Melissa SISAL OPERATOR, Nadiya Renner Attending Clinician +[phone] LEA BARRETO Attending Clinician Unavail able Martha LOMELI, Violet Miguel Attending Clinician +[phone] LESLYE COPE Attending Clinician UnavailLESLYE Dias Attending Clinician UnavailTala Mena RN Attending Clinician Unavaila TAYLOR Ross Attending Clinician Unavailable TAYLOR MALCOLM Attending Clinician Unavailable Rod TORIBIO, Nissa Spear Attending Clinician Unavail able Lacie PT, Gabrielle Attending Clinician UnavailLeslye Dias MD Attending Clinician [phone] Romina Baker LCSW Attending Clinician +[phone], [facility] Attending Clinician Unavailable MICHAEL BETANCUR Attending Clinician Unavaila dionicio Doctor Unassigned, Mosses Attending Clinician U navailable [facility] Attending Clinician Unavailable Michael Betancur MD Attending Clinician + [phone] Mayela LOMELI, Nabila Attending Clinician + [phone] TAYLOR BYNUM Attending Clinician Unavailab Alice Dalton MD Attending Clinician +[phone] Taylor Bynum DO Attending Clinician +[phone] Priscilla LOMELI, Javi Wallace Attending Clinician + [phone] ALICE PENA Attending Clinician Unavailable Tamie MCKAY, Lolita Larios Attending Clinician + [phone] Umm FLORES, Austin Attending Clinician + [phone] Eamon LOMELI, Erika Bergman Attending Clinician +[phone] Violette LOMELI, Antoinette Attending Clinician + [phone] Jennifer LOMELI, Marcos Attending Clinician +[phone] JANI RODRIGUEZ Attending Clinician Unavailable KATE SIERRA Attending Clinician Unavailab FARIHA Nesbitt Attending Clinician Unavail able FARIHA YOUNGBLOOD Attending Clinician Unavail able KASSY GUTIERREZ Attending Clinician Unavailab Kassy Lang DO Attending Clinician [phone] Isha Geller Attending Clinician + [phone] Boaz Delgado MD Attending Clinician +[phone] BOAZ DELGADO Attending Clinician Unavailable ZEYNEP MITCHELL Attending Clinician Unavailable Zeynep Madsen Attending Clinician [phone] JUSTEN PATTON Attending Clinician Unavailable Bairon Meyers MD Attending Clinician + [phone] Justen Patton DO Attending Clinician [phone] ZEV FERNÁNDEZ Attending Clinician Unavailable Rasta Anne DO Attending Clinician + [phone] Panda Flanagan MD Attending Clinician + [phone] PANDA FLANAGAN Attending Clinician Unavailable Only, Ang Db Test Attending Clinician Unavailannia Brown PA-C, [place] Attending Clinician [phone] AUSTIN BROWN Attending Clinician Unavailable SAYDA ZAFAR Attending Clinician Unavailable Sayda Bello Attending Clinician + [phone] UNKNOWN, ATTENDING Attending Clinician Unavailab Randy Orta MD Attending Clinician +[phone] BRANDON RIVERA Attending Clinician Unavailabl andrea Rivera MD, Brandon Attending Clinician +[phone] Unknown, Attending Attending Clinician Unavailab Sherry Del Toro MD Attending Clinician [phone] SCARLET CUELLAR Attending Clinician Unavailable SELINA BUCKLEY Attending Clinician Unavailable CASSIUS ZULUAGA Attending Clinician Unavailable CAROLYN HERRERA Attending Clinician Unavailab bettye Vasquez, [facility] Dermatology Nurse Attending Clinician Unavailable Caleb LOMELI, Carolyn November Attending Clinician [phone] Elvi Maya MD Attending Clinician +[phone] ELVI MAYA Attending Clinician Unavailable Radiology Attending Clinician Unavailable RADIOLOGY Attending Clinician Unavailable Lauri Natarajan Attending Clinician [phone] LAURI CURRY Attending Clinician Unavailable SIENNA RUFF Attending Clinician Unavailable Selina Arechiga Attending Clinician +[phone] Visit/Fp, [facility] Nurse Attending Clinician Un available ABRAM LYNNE Attending Clinician Unavailrenetta Lynne MD, Abram Brooks Attending Clinician + [phone] Herminio Isaac MD Attending Clinician +[phone] Cristina Parra PA-C Attending Clinician + [phone] Nayeli MCKAY, Kala Renner Attending Clinician Clair vailable CRISTINA PARRA Attending Clinician Unavailable DASH MALCOLM Attending Clinician Unavailable Dash Dow Attending Clinician [phone] Ondina Palacio MD Attending Clinician +[phone] ONDINA PALACIO Attending Clinician Unavailable Lab, [facility] Attending Clinician Unavailable Mili Watt Attending Clinician + [phone] MILI VILLEGAS Attending Clinician Unavailab bettye TRAN, Franny Attending Clinician +[phone] Ultrasound, [facility] Attending Clinician Unavaila Darline Stone Attending Clinician Unavailabl e 1, [facility] Usg Room Attending Clinician Unavailrenetta Mcneil MD, Conrado Larios Attending Clinician [phone] [facility] Attending Clinician Unavailable Jared Bay MD Attending Clinician [phone] JARED BAY Attending Clinician Unavailable Maximus Villavicencio DO Attending Clinician [phone] Fellow, Gal [facility] Attending Clinician Un available Nette Cadet MD Attending Clinician [phone] NETTE CADET Attending Clinician Unavailable NETTE CADET Attending Clinician Unavailable Juanjose Ross DO Attending Clinician +[phone] Sienna LOMELI, Matthew Attending Clinician [phone] MATTHEW EL Attending Clinician Unavailable Jean-Paul MCKAY, Glenna Attending Clinician UnavailTamika Ch MD, Gwendolyn Attending Clinician + [phone] EKTA ESPINOZA Admitting Clinician ONDINA Hernández Admitting Clinician Unavailable DAMION HAMLIN Admitting Clinician Unavailable KAYDEN MCDUFFIE Admitting Clinician Unavailable NADIYA BELLAMY Admitting Clinician Unavailable TAYLOR MALCOLM Admitting Clinician Unavailable MICHAEL BETANCUR Admitting Clinician Unavaila TAYLOR House Admitting Clinician Unavailab ALICE Dalton Admitting Clinician Unavailable ANTOINETTE MCCULLOUGH Admitting Clinician UnavailAntoinette Lopez MD Admitting Clinician [phone] KATE SIERRA Admitting Clinician Unavailab JUSTEN Perez Admitting Clinician Unavailable Justen Patton DO Admitting Clinician +[phone] DAMION HAMLIN Admitting Clinician Unavailable LAURI CURRY Admitting Clinician Unavailable ABRAM LYNNE Admitting Clinician UnavailAbram Bell MD Admitting Clinician + [phone] Ondina Palacio MD Admitting Clinician +[phone] Payers Payer Name Policy Type Policy Number Effective Date Expirati on Date Source [facility] LISA SHEEHAN [id number] 2022 00:00:00 Problems Condition Name Condition Details Condition Category Status Onset Date Resolution Date Last Treatment Date Treating Clinician Comments Source 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 Disease Active 2022-07 0-01 00:00: 00 [facility] Epigastric pain Epigastric pain Disease Active 0 9-26 00:00: 00 [facility] Loss of weight Loss of weight Disease Active 8- 00:00: 00 [facility] Nausea Nausea Disease Active 8- 00:00: 00 [facility] Abdominal pain, generalize d Abdominal pain, generalize d Disease Active 8- 00:00: 00 [facility] Atypical chest pain Atypical chest pain Disease Active 8- 00:00: 00 [facility] Essential hypertensi on Essential hypertensi on Disease Active 8- 00:00: 00 [facility] Dyslipidem ia Dyslipidem ia Disease Active 8- 00:00: 00 [facility] Elevated LFTs Elevated LFTs Disease Active 8- 00:00: 00 [facility] Weakness Weakness Disease Active 8 00:00: 00 [facility] 38 weeks gestation of 38 weeks gestation of Disease Active 03-27 00:00: 00 [facility] Multiparit y Multiparit y Disease Active 03-27 00:00: 00 [facility] 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 03-27 00:00: 00 [facility] Advanced maternal age in multigravi da, third trimester Advanced maternal age in multigravi da, third trimester Disease Active 03-27 00:00: 00 [facility] Abnormal glucose tolerance test (GTT) during , antepartum Abnormal glucose tolerance test (GTT) during , antepartum Disease Active 03-27 00:00: 00 [facility] Abnormal glucose tolerance test (GTT) during , antepartum Abnormal glucose tolerance test (GTT) during , antepartum Disease Active 8-31 00:00: 00 [facility] Urinary tract infection in mother during third trimester of Urinary tract infection in mother during third trimester of Disease Active 02-14 00:00: 00 [facility] Preexistin g hypertensi on complicati ng , antepartum Preexistin g hypertensi on complicati ng , antepartum Disease Active 02-14 00:00: 00 [facility] Rash Rash Disease Active 10-19 00:00: 00 [facility] Bullous disorder Bullous disorder Disease Active 10-19 00:00: 00 [facility] Irregular menstrual cycle Irregular menstrual cycle Disease Active 09-29 00:00: 00 [facility] Vaginitis and vulvovagin itis Vaginitis and vulvovagin itis Disease Active 09-29 00:00: 00 Overview: Formattin g of this note might be different from the original. ICD10 Diagnosis Term Stone [employer] Utility [facility] Need for prophylact ic vaccinatio n with combined diphtheria -tetanus-p ertussis (DTP) vaccine Need for prophylact ic vaccinatio n with combined diphtheria -tetanus-p ertussis (DTP) vaccine Disease Active 09-29 00:00: 00 [facility] Morbid obesity Morbid obesity Disease Active 09-29 00:00: 00 [facility] AN (acanthosi s nigricans) AN (acanthosi s nigricans) Disease Active 09-29 00:00: 00 [facility] Headache Headache Disease Active 09-29 00:00: 00 Overview: Formattin g of this note might be different from the original. ICD10 Diagnosis Term Stone [employer] Utility [facility] Allergies, Adverse Reactions, Alerts Allergy Name Allergy Type Status Severity Reaction(s) Onset Date Inactive Date Treating Clinician Comments Source NO KNOWN ALLERGIE S Drug Class Active [facility] Social History Social Habit Start Date Stop Date Quantity Comments Source Gender identity [facility] Alcoholic beverage intake 2024-05-04 00:00:00 2024-05-04 00:00:00 Ex-drinker (finding) [facility] Alcohol intake 2023-11-26 00:00:00 2023-11-26 00:00:00 Ex-drinker (finding) [facility] History of Social function 2023-11-26 00:00:00 2023-11-26 00:00:00 [facility] Tobacco use and exposure 2023-02-25 00:00:00 2023-02-25 00:00:00 Former smokeless tobacco user [facility] Exposure to SARS-CoV-2 (event) 2022-05-11 00:00:00 2022-05-21 13:28:00 Not sure [facility] History of tobacco use 2011-12-27 00:00:00 User of smokeless tobacco [facility] Sex assigned at 1980 00:00:00 1980 00:00:00 [facility] Smoking Status Start Date Stop Date Source Ex-smoker 2023-02-25 00:00:00 2023-02-25 00:00:[facility] Medications Ordered Medication Name Filled Medication Name Start Date Stop Date Current Medication? Ordering Clinician Indication Dosage Frequency Signature (SIG) Comments Components Source methylPREDN ISolone acetate (DEPO-MEDRO L) injection 40 mg 2023-07 22:15: 00 06-18 21:36 :00 No [id number] 40mg 40 mg, Intramuscu lar, ONCE, 1 dose, On Fri06/18/24 at 1615, Routine [facility] cefTRIAXone (ROCEPHIN) injection 1,000 mg 2023-07 22:00: 00 06-18 21:36 :00 No [id number] 1000mg 1,000 mg, Intramuscu lar, ONCE, 1 dose, On Fri06/18/24 at 1600, MARGARITA, Reason for Anti-Infec tive: Documented Infection, Documented Infection Site: Respirator y, Duration of Therapy: Other (see Comments) [facility] dexamethaso ne (DECADRON) injection 8 mg 2023-07 22:00: 00 06-18 21:18 :15 No [id number] 8mg [facility] lidocaine 5 % ointment 2023-07 00:00: 00 Yes Apply to area(s) 2 (two) times daily. [facility] diclofenac sodium 1 % gel 2023-07 00:00: 00 Yes Take 2-4 grams three times a day as needed for pain [facility] hydroCHLORO thiazide 25 mg tablet 2023-07 00:00: 00 Yes [id number] 25mg Take 1 tablet by mouth in the morning. [facility] HYDROCHLORO THIAZIDE 25 mg tablet 2023-07 00:00: 00 06-16 00:00 :00 No [id number] 25mg TAKE 1 TABLET BY MOUTH IN THE MORNING [facility] SUCRALFATE, BULK, MISC 2023-07 09:17: 05-04 00:00 :00 Yes Take by mouth. [facility] pantoprazol e 40 mg EC tablet 2023-07 00:00: 00 Yes [id number] 40mg Take 1 tablet by mouth in the morning and 1 tablet in the evening. [facility] dicyclomine 20 mg tablet 2023-07 00:00: 00 Yes [id number] 20mg Take 1 tablet by mouth 4 (four) times daily as needed for Abdominal pain. [facility] cefTRIAXone (ROCEPHIN) injection 1,000 mg 04-23 15:45: 00 04-23 15:16 :00 No [id number] 1000mg 1,000 mg, Intramuscu lar, ONCE, 1 dose, On Fri04/23/24 at 1045, MARGARITA, Reason for Anti-Infec tive: Documented Infection, Documented Infection Site: Urine, Duration of Therapy: Other (see Comments) [facility] DULoxetine 30 mg capsule 04-23 00:00: 00 Yes [id number] 30mg Take 1 capsule by mouth in the morning. [facility] ketorolac (TORADOL) injection 60 mg 04-21 11:30: 00 04-21 10:32 :00 No 60mg 60 mg, Intramuscu lar, ONCE, 1 dose, On Fri04/21/24 at 0630, Routine [facility] ondansetron (ZOFRAN-ODT ) disintegrat ing tablet 8 mg 04-21 11:15: 00 04-21 10:32 :00 No 8mg 8 mg, Oral, ONCE, 1 dose, On Fri04/21/24 at 0615, MARGARITA [facility] ondansetron 8 mg disintegrat ing tablet 04-21 00:00: 00 Yes [id number] 8mg Take 1 tablet by mouth every 8 (eight) hours as needed for Nausea and Vomiting (N/V). [facility] ketorolac 10 mg tablet 04-21 00:00: 00 04-23 00:00 :00 No [id number] 10mg Take 1 tablet by mouth every 6 (six) hours as needed for Pain (scale 7-10). [facility] sumatriptan 100 mg tablet 04-19 00:00: 00 Yes [id number] 100mg Take 1 tablet by mouth as needed for Migraine (Max of 2 tablets/da y.). [facility] topiramate 25 mg tablet 04-19 00:00: 00 05-17 04:59 :00 No [id number] Take 1 tablet by mouth 2 (two) times daily for 7 days, THEN 2 tablets 2 (two) times daily for 21 days. [facility] acetaminoph en (TYLENOL) tablet 1,000 mg 04-16 05:45: 00 04-16 05:47 :00 No 1000mg 1,000 mg, Oral, ONCE, 1 dose, On Fri04/16/24 at 0045, MARGARITA [facility] diphenhydrA MINE (BENADRYL) injection 25 mg 04-16 01:15: 00 04-16 02:09 :00 No 25mg 25 mg, Slow IV Push, ONCE, 1 dose, On Fri04/15/24 at 2014, STAT [facility] famotidine (PEPCID (PF)) injection 20 mg 04-16 01:15: 00 04-16 02:09 :00 No 20mg 20 mg, Slow IV Push, ONCE, 1 dose, On Fri04/15/24 at 2014, [facility] ondansetron (ZOFRAN (PF)) injection 4 mg 04-16 01:15: 00 04-16 02:08 :00 No 4mg 4 mg, Slow IV Push, ONCE, 1 dose, On Fri04/15/24 at 2014, [facility] acetaminoph en (TYLENOL) tablet 650 mg 04-16 01:15: 00 04-16 02:12 :00 No 650mg 650 mg, Oral, ONCE, 1 dose, On Fri04/15/24 at 2014, [facility] haloperidol lactate (HALDOL) injection 1.25 mg 04-16 01:15: 00 04-16 02:10 :00 No 1.25mg 1.25 mg, Intravenou s, ONCE, 1 dose, On Fri04/15/24 at 2014, Routine [facility] NaCl 0.9% (NS) bolus infusion 1,000 mL 04-16 01:15: 04-16 05:39 :00 No 1000mL at 999 mL/hr, 1,000 mL, IV Infusion, ONCE, 1 dose, On Fri04/15/24 at 2014, STAT [facility] ketorolac (TORADOL) injection 15 mg 04-14 00:15: 00 04-13 23:29 :00 No 15mg 15 mg, Slow IV Push, ONCE, 1 dose, On Fri04/13/24 at 1915, [facility] cefTRIAXone (ROCEPHIN) 1,000 mg in NaCl 0.9% (NS) 100 mL MINI-BAG 04-13 23:15: 00 04-13 23:59 :00 No 1000mg 1,000 mg, IV Piggyback, ONCE, 1 dose, On Fri04/13/24 at 1815, Administer over 30 Minutes, 100 mL, Reason for Anti-Infec tive: Documented Infection, Documented Infection Site: Urine, Duration of Therapy: Once (ED) [facility] iopamidol (ISOVUE 370-500 mL) injection 90 mL 04-13 22:00: 00 04-13 22:00 :00 No [id number] 90mL 90 mL, Intravenou s, ONCE, 1 dose, On Fri04/13/24 at 1700, Routine [facility] ketorolac (TORADOL) injection 30 mg 04-13 20:45: 00 04-13 20:30 :00 No 30mg 30 mg, Slow IV Push, ONCE, 1 dose, On Fri04/13/24 at 1545, Routine [facility] dicyclomine (BENTYL) injection 20 mg 04-13 20:30: 00 04-13 20:30 :00 No 20mg 20 mg, Intramuscu lar, ONCE NOW, 1 dose, On Fri04/13/24 at 1530, Routine [facility] pantoprazol e (PROTONIX) injection 40 mg 04-13 20:30: 00 04-13 20:30 :00 No 40mg 40 mg, Slow IV Push, ONCE, 1 dose, On Fri04/13/24 at 1530 [facility] ketorolac 10 mg tablet 04-13 00:00: 00 Yes [id number] 10mg Take 1 tablet by mouth every 6 (six) hours as needed for Pain (scale 4-6), Pain (scale 7-10) or Pain (scale 1-3). [facility] cefdinir 300 mg capsule 04-13 00:00: 00 04-21 04:59 :00 Yes [id number] 300mg Take 1 capsule by mouth in the morning and 1 capsule in the evening. Do all this for 7 days. [facility] famotidine 40 mg tablet 03-22 00:00: 00 04-13 00:00 :00 No [id number] 40mg Take 1 tablet by mouth in the morning. [facility] azelastine 137 mcg (0.1 %) nasal spray 03-22 00:00: 00 04-13 00:00 :00 No [id number] 1{spray } Use 1 Eden in each nostril in the morning and 1 Eden in the evening. Use goodmotionBEAT incx coupon if ruiz is high [facility] mupirocin 2 % ointment 03-22 00:00: 00 04-13 00:00 :00 No [id number] Apply inside both nasal cavities with clean finger 2x daily after using saline spray/Alfonso med sinus rinse with distilled water. Continue regularly for 6 weeks, then as needed [facility] naproxen 500 mg tablet 02-19 00:00: 00 04-13 00:00 :00 No [id number] 500mg Take 1 tablet by mouth 2 (two) times daily with meals as needed for Pain (scale 4-6). [facility] cetirizine 10 mg tablet 02-19 00:00: 00 04-13 00:00 :00 No [id number] 10mg Take 1 tablet by mouth at bedtime as needed for Allergies or Runny nose. [facility] amoxicillin -clavulanat e (AUGMENTIN) 875-125 mg per tablet 02-19 00:00: 00 02-27 04:59 :00 No [id number] 1{tbl} Take 1 tablet by mouth in the morning and 1 tablet in the evening. Do all this for 7 days. [facility] ketorolac (TORADOL) injection 60 mg 02-17 19:45: 00 02-17 19:08 :00 No [id number] 60mg 60 mg, Intramuscu lar, ONCE, 1 dose, On Fri02/18/24 at 1445, Routine [facility] hydroCHLORO thiazide 25 mg tablet 02-17 00:00: 00 05-17 00:00 :00 No [id number] 25mg Take 1 tablet by mouth in the morning. [facility] pantoprazol e 40 mg EC tablet 02-17 00:00: 00 04-13 00:00 :00 No [id number] 40mg Take 1 tablet by mouth in the morning. [facility] sucralfate 1 gram tablet 02-17 00:00: 00 04-13 00:00 :00 No 1g Take 1 tablet by mouth before meals and at bedtime. [facility] ergocalcife rol, vitamin d2, (VITAMIN D2) 1,250 mcg (50,000 unit) capsule 02-17 00:00: 00 04-13 00:00 :00 No [id number] Take 1 capsule by mouth weekly. [facility] famotidine 40 mg tablet 01-30 00:00: 00 02-17 00:00 :00 No [id number] 40mg Take 1 tablet by mouth in the morning. [facility] diphenhydrA MINE:lidoca ine 2% viscous:maa lox 1:1:1 (FIRST-MOUT HWASH BLM) oral suspension 15 mL 01-27 02:15: 00 01-27 02:45 :00 No 15mL 15 mL, Oral, ONCE, 1 dose, On Fri01/27/24 at 2115, Routine [facility] ketorolac (TORADOL) injection 30 mg 01-27 00:30: 00 01-26 23:57 :00 No 30mg 30 mg, Slow IV Push, ONCE, 1 dose, On Fri01/27/24 at 1930, Routine [facility] iopamidol (ISOVUE 370-500 mL) injection 125 mL 01-27 00:29: 00 01-27 00:29 :00 No [id number] 125mL 125 mL, Intravenou s, ONCE, 1 dose, On Fri01/27/24 at 1945, Routine [facility] NaCl 0.9% (NS) bolus infusion 1,000 mL 01-26 22:15: 00 01-27 02:50 :00 No 1000mL at 999 mL/hr, 1,000 mL, IV Piggyback, ONCE, 1 dose, On Fri01/27/24 at 1715, STAT [facility] proMETHazin e 25 mg tablet 01-26 00:00: 00 04-13 00:00 :00 No [id number] 25mg Take 1 tablet by mouth every 6 (six) hours as needed for Nausea and Vomiting (N/V). [facility] sucralfate 1 gram tablet 01-26 00:00: 00 02-17 00:00 :00 No [id number] 1g Take 1 tablet by mouth before meals and at bedtime. [facility] esomeprazol e 40 mg capsule 01-26 00:00: 00 01-30 00:00 :00 No [id number] 40mg Take 1 capsule by mouth daily with breakfast. [facility] ergocalcife rol, vitamin d2, (VITAMIN D2) 1,250 mcg (50,000 unit) capsule 11-27 00:00: 00 02-17 00:00 :00 No [id number] Take 1 capsule by mouth weekly. [facility] diphenhydrA MINE (BENADRYL) 25 mg capsule 11-25 00:00: 00 04-13 00:00 :00 No [id number] 25mg Take 1 capsule by mouth every 6 (six) hours as needed for Allergies. [facility] lidocaine 5 % ointment 11-25 00:00: 00 04-13 00:00 :00 No [id number] Apply to area(s) 2 (two) times daily. [facility] triamcinolo ne acetonide 0.1 % cream 11-25 00:00: 00 04-13 00:00 :00 No [id number] Apply to area(s) 2 (two) times daily. [facility] fluticasone propionate 50 mcg/actuati on nasal spray - 00:00: 00 03-22 00:00 :00 No [id number] 1{spray } Use 1 Eden in each nostril in the morning. [facility] pantoprazol e 40 mg EC tablet 5- 00:00: 00 02-17 00:00 :00 No [id number] 40mg Take 1 tablet by mouth in the morning. [facility] pantoprazol e 40 mg EC tablet 3-15 00:00: 00 11-25 00:00 :00 No [id number] 40mg Take 1 tablet by mouth in the morning. [facility] fluticasone propionate 50 mcg/actuati on nasal spray 3-15 00:00: 00 11-25 00:00 :00 No [id number] 1{spray } Use 1 Eden in each nostril in the morning. [facility] ketorolac (TORADOL) injection 15 mg 08 22:15: 00 10-02 21:47 :00 No 15mg 15 mg, Slow IV Push, ONCE, 1 dose, On Fri10/03/23 at 1615, MARGARITA [facility] iopamidol (ISOVUE 370-500 mL) injection 85 mL 2022-07 011 02:45: 00 05-07 02:45 :00 No [id number] 85mL 85 mL, Intravenou s, ONCE, 1 dose, On Fri05/06/23 at 2145, Routine [facility] ondansetron (ZOFRAN (PF)) injection 4 mg 2022-07 0-11 01:45: 00 05-07 02:54 :00 No 4mg 4 mg, Slow IV Push, ONCE, 1 dose, On Fri05/06/23 at 2045, MARGARITA [facility] pantoprazol e 40 mg EC tablet 2022-07 0-05 00:00: 00 07-31 05:59 :00 No 40mg Take 1 tablet by mouth in the morning for 90 days. [facility] pantoprazol e (PROTONIX) EC tablet 40 mg 2022-07 0- 14:00: 00 Yes 40mg 40 mg, Oral, DAILY, First dose on Fri04/30/23 at 0900, Until Discontinu ed, Routine [facility] gabapentin (NEURONTIN) capsule 300 mg 2022-07 0- 01:00: 00 Yes 300mg 300 mg, Oral, TID, First dose on Fri04/29/23 at 2000, Until Discontinu ed, Routine [facility] gabapentin 300 mg capsule 2022-07 0- 00:00: 00 10-09 00:00 :00 No [id number] 300mg Take 1 capsule by mouth in the morning and 1 capsule at noon and 1 capsule in the evening. [facility] ondansetron 4 mg tablet 2022-07 0- 00:00: 00 05-15 04:59 :00 No [id number] 4mg Take 1 tablet by mouth every 8 (eight) hours as needed for Nausea and Vomiting (N/V) for up to 14 days. [facility] dicyclomine 20 mg tablet 2022-07 0- 00:00: 00 05-15 04:59 :00 No [id number] 20mg Take 1 tablet by mouth 4 (four) times daily as needed for Abdominal pain for up to 14 days. [facility] methocarbam oL 500 mg tablet 2022-07 0- 00:00: 00 05-05 04:59 :00 No [id number] 500mg Take 1 tablet by mouth 4 (four) times daily for 4 days. [facility] Pantoprazol e 40 mg delayed-rel ease suspension 2022-07 0- 00:00: 00 05-01 00:00 :00 No [id number] 40mg Take 40 mg by mouth in the morning and 40 mg in the evening. Do all this for 38 days. [facility] methocarbam oL (ROBAXIN) tablet 500 mg 2022-07 0-03 21:00: 00 Yes 500mg 500 mg, Oral, QID, First dose on Fri04/29/23 at 1600, Until Discontinu ed, Routine [facility] piperacilli n-tazobacta m (ZOSYN) 3.375 g [...] Soft tissue
Duration of therapy: 72 hours [facility] piperacilli n-tazobacta m (ZOSYN) 3.375 g in NaCl 0.9% (NS) 100 mL MINI-BAG 2022-07 23:30: 00 04-29 00:00 :00 No 3.375g 3.375 g, IV Piggyback, ONCE, 1 dose, On Fri04/28/23 at 1830, Administer over 30 Minutes, 100 mL
Reas on for Anti-Infec tive: Empiric Therapy for Suspected Infection< br>Empiric Therapy Site: Skin / Soft tissue
Duration of therapy: 72 hours [facility] ondansetron (ZOFRAN) tablet 4 mg 04-25 20:13: 34 Yes 4mg 4 mg, Oral, Q8HPRN, Starting on Fri04/25/23 at 1513, Until Discontinu ed, Routine, Nausea and Vomiting (N/V) [facility] sucralfate (CARAFATE) tablet 1 g 04-24 16:30: 00 Yes 1g 1 g, Oral, AC+HS, First dose on Fri04/24/23 at 1130, Until Discontinu ed, Routine [facility] sucralfate (CARAFATE) 100 mg/mL suspension 1,000 mg 04-23 02:00: 00 2023- 09-28 13:09 :41 No 1g 1,000 mg (1 g), Oral, AC+HS, First dose on Fri04/22/23 at 2100, Until Discontinu ed, Routine [facility] iopamidol (ISOVUE 370-500 mL) injection 125 mL 04-23 01:13: 00 04-23 01:14 :00 No [id number] 125mL 125 mL, Intravenou s, ONCE, 1 dose, On Fri04/22/23 at 2030, Routine [facility] pantoprazol e (PROTONIX) injection 40 mg 04-23 01:00: 00 Yes 40mg 40 mg, Slow IV Push, Q12H, First dose (after last modificati on) on Fri04/22/23 at 2000, Until Discontinu ed [facility] maalox:diph enhydrAMINE :lidocaine 2 % viscous 1:1:1 (FIRST-MOUT HWASH BLM) oral suspension 15 mL 04-23 01:00: 00 Yes 15mL 15 mL, Oral, Q12H, First dose (after last reorder) on Fri04/22/23 at 2000, Until Discontinu ed, Routine [facility] maalox:diph enhydrAMINE :lidocaine 2 % viscous 1:1:1 (FIRST-MOUT HWASH BLM) oral suspension 15 mL 04-22 19:29: 24 Yes 15mL 15 mL, Oral, QDAILYPRN, Starting on Fri04/22/23 at 1429, Until Discontinu ed, Routine, abd pain [facility] acetaminoph en (TYLENOL) tablet 650 mg 04-22 18:45: 00 Yes 650mg 650 mg, Oral, Q6H, First dose (after last modificati on) on Fri04/22/23 at 1345, Until Discontinu ed, Routine [facility] maalox:diph enhydrAMINE :lidocaine 2 % viscous 1:1:1 (FIRST-MOUT HWASH BLM) oral suspension 15 mL 04-22 11:15: 00 04-22 11:33 :00 No 15mL 15 mL, Oral, ONCE, 1 dose, On Fri04/22/23 at 0630, Routine [facility] HYDROcodone -acetaminop hen (NORCO 5) 5-325 mg tablet 1 tablet 04-22 08:50: 53 Yes 1{tbl} 1 tablet, Oral, Q6HPRN, Starting on Fri04/22/23 at 0350, Until Discontinu ed, Routine, Pain (scale 7-10) [facility] enoxaparin (LOVENOX) injection 40 mg 04-22 08:45: 00 Yes 40mg 40 mg, Subcutaneo us, Q24H, First dose on Fri04/22/23 at 0345, Until Discontinu ed, Routine [facility] pantoprazol e (PROTONIX) injection 40 mg 04-22 08:00: 00 04-22 16:04 :07 No 40mg 40 mg, Slow IV Push, Q24H, 3 doses, First dose on Fri04/22/23 at 0300, Last dose on Fri04/24/23 at 0300 [facility] maalox:diph enhydrAMINE :lidocaine 2 % viscous 1:1:1 ([facility] BLM) oral suspension 15 mL 04-22 06:00: 00 04-22 06:09 :00 No 15mL 15 mL, Oral, ONCE, 1 dose, On Fri04/22/23 at 0100, Routine [facility] maalox:diph enhydrAMINE :lidocaine 2 % viscous 1:1:1 ([facility] BLM) oral suspension 15 mL 04-21 23:45: 00 04-22 00:39 :00 No 15mL 15 mL, Oral, ONCE, 1 dose, On Fri04/21/23 at 1845, Routine [facility] NaCl 0.9% (NS) bolus infusion 1,000 mL 04-21 23:30: 00 04-22 01:59 :00 No 1000mL at 999 mL/hr, 1,000 mL, IV Infusion, ONCE, 1 dose, [facility]04/21/23 at 1830[facility] delayed-rel ease suspension 03-13 14:52: 41 03-13 00:00 :00 No 40mg Take 40 mg by mouth in the morning. [facility] peg-electro lyte soln 236-22.74-6 .74 -5.86 gram solution 03-13 00:00: 00 10-09 00:00 :00 No [id number] Take as directed before colonoscop y [facility] Pantoprazol e 40 mg delayed-rel ease suspension 03-13 00:00: 00 04-30 00:00 :00 No [id number] 40mg Take 40 mg by mouth in the morning and 40 mg in the evening. [facility] maalox:diph enhydrAMINE :lidocaine 2 % viscous 1:1:1 (FIRST-MOUT HWASH [facility]) oral suspension 15 mL 03-12 01:30: 00 03-12 01:35 :00 No 15mL 15 mL, Oral, ONCE, 1 dose, On Fri03/11/23 at 2030, Routine [facility] dicyclomine (BENTYL) tablet 20 mg 03-12 01:30: 00 03-12 01:34 :00 No 20mg 20 mg, Oral, ONCE, 1 dose, On Fri03/11/23 at 2030, [facility] NaCl 0.9% (NS) bolus infusion 1,000 mL 03-11 23:45: 00 03-12 01:58 :00 No 1000mL at 999 mL/hr, 1,000 mL, IV Infusion, ONCE, 1 dose, On Fri03/11/23 at 1845, [facility] ondansetron (ZOFRAN (PF)) injection 4 mg 03-11 23:00: 00 03-12 00:32 :00 No 4mg 4 mg, Slow IV Push, ONCE, 1 dose, On Fri03/11/23 at 1800, [facility] ondansetron 4 mg disintegrat ing tablet 03-11 00:00: 00 10-09 00:00 :00 No [id number] 4mg Take 1 tablet by mouth every 8 (eight) hours as needed for Nausea and Vomiting (N/V). [facility] dicyclomine 20 mg tablet 03-11 00:00: 00 04-30 00:00 :00 No [id number] 20mg Take 1 tablet by mouth 4 (four) times daily as needed for Abdominal pain. [facility] pantoprazol e (PROTONIX) 40 mg EC tablet 02-27 00:00: 00 02-26 00:00 :00 No [id number] 40mg Take 1 tablet by mouth in the morning for 30 days. [facility] aspirin 81 mg chewable tablet 02-27 00:00: 00 02-26 00:00 :00 No [id number] 81mg Take 1 tablet by mouth in the morning for 30 days. [facility] maalox:diph enhydrAMINE :lidocaine 2 % viscous 1:1:1 (FIRST-MOUT [facility]) oral suspension 15 mL 02-26 17:30: 00 02-26 17:41 :00 No 15mL 15 mL, Oral, ONCE, 1 dose, On Fri02/26/23 at 1230, Routine [facility] cefTRIAXone (ROCEPHIN) 1,000 mg in NaCl 0.9% (NS) 100 mL MINI-BAG 02-26 14:45: 00 02-26 16:14 :00 No 1000mg 1,000 mg, IV Piggyback, Q24H ABX, 1 dose, First dose on Fri02/26/23 at 0945, Administer over 30 Minutes, 100 mL
Reas on for Anti-Infec tive: Empiric Therapy for Suspected Infection< br>Empiric Therapy Site: Urine
D uration of therapy: 5 days [facility] pantoprazol e (PROTONIX) EC tablet 40 mg 02-26 14:00: 00 Yes 40mg 40 mg, Oral, DAILY, First dose on Fri02/26/23 at 0900, Until Discontinu ed, Routine [facility] aspirin chewable tablet 81 mg 02-26 14:00: 00 Yes 81mg 81 mg, Oral, DAILY, First dose on Fri02/26/23 at 0900, Until Discontinu ed, Routine [facility] enoxaparin (LOVENOX) injection 40 mg 02-26 14:00: 00 Yes 40mg 40 mg, Subcutaneo us, DAILY, First dose on Fri02/26/23 at 0900, Until Discontinu ed, Routine [facility] dicyclomine (BENTYL) tablet 20 mg 02-26 04:22: 14 Yes 20mg 20 mg, Oral, Q6HPRN, Starting on Fri02/25/23 at 2322, Until Discontinu ed, Routine, Abdominal pain [facility] sulfamethox azole-trime thoprim (BACTRIM DS) 800-160 mg per tablet 02-26 00:00: 00 02-26 00:00 :00 No [id number] 1{tbl} Take 1 tablet by mouth in the morning and 1 tablet in the evening. Do all this for 3 days. [facility] atorvastati n 20 mg tablet 02-26 00:00: 00 02-26 00:00 :00 No [id number] 20mg Take 1 tablet by mouth at bedtime for 30 days. [facility] sucralfate 1 gram tablet 02-26 00:00: 00 02-26 00:00 :00 No [id number] 1g Take 1 tablet by mouth before meals and at bedtime for 20 days. [facility] aspirin tablet 325 mg 02-25 23:00: 00 02-25 22:02 :00 No 325mg 325 mg, Oral, ONCE, 1 dose, On Fri02/25/23 at 1800, MARGARITA [facility] ondansetron (ZOFRAN (PF)) injection 4 mg 02-25 22:57: 52 Yes 4mg 4 mg, Slow IV Push, Q6HPRN, Starting on Fri02/25/23 at 1757, Until Discontinu ed, Routine, Nausea and Vomiting (N/V) [facility] acetaminoph en (TYLENOL) tablet 650 mg 02-25 22:57: 45 Yes 650mg 650 mg, Oral, Q6HPRN, Starting on Fri02/25/23 at 1757, Until Discontinu ed, Routine, Pain (scale 1-3) [facility] NaCl 0.9% (NS) bolus infusion 1,000 mL 02-25 21:45: 00 02-25 21:51 :00 No 1000mL at 999 mL/hr, 1,000 mL, IV Infusion, ONCE, 1 dose, On Fri02/25/23 at 1645, STAT [facility] nitroglycer in (NITROL) 2 % ointment 0.5 Inch 02-25 21:45: 00 02-25 21:51 :00 No .5[in_u s] 0.5 Inch, Transderma l (Apply To Skin), ONCE, 1 dose, On Fri02/25/23 at 1645, MARGARITA [facility] iopamidol (ISOVUE 370-500 mL) injection 100 mL 02-25 20:49: 00 02-25 20:48 :00 No [id number] 100mL 100 mL, Intravenou s, ONCE, 1 dose, On Fri02/25/23 at 1615, Routine [facility] NaCl 0.9% (NS) injection 5 mL 02-25 20:15: 02 Yes 5mL 5 mL, Slow IV Push, PRN - SEE INSTRUCTIO NS, Starting on Fri02/25/23 at 1515, Until Discontinu ed, 10 mL [facility] maalox:diph enhydrAMINE :lidocaine 2 % viscous 1:1:1 (FIRST-MOUT HWASH BLM) oral suspension 15 mL 02-03 04:15: 00 02-03 04:27 :00 No 15mL 15 mL, Oral, ONCE, 1 dose, On Fri02/02/23 at 2315, Routine [facility] iopamidol (ISOVUE 370-500 mL) injection 100 mL 02-03 02:45: 00 02-03 01:46 :00 No [id number] 100mL 100 mL, Intravenou s, ONCE, 1 dose, On Fri02/02/23 at 2145, Routine [facility] ketorolac (TORADOL) injection 30 mg 02-03 02:15: 00 02-03 01:29 :00 No 30mg 30 mg, Slow IV Push, ONCE, 1 dose, On Fri02/02/23 at 2115, Routine [facility] maalox:diph enhydrAMINE :lidocaine 2 % viscous 1:1:1 (FIRST-MOUT HWASH BLM) oral suspension 15 mL 02-03 01:30: 00 02-03 01:29 :00 No 15mL 15 mL, Oral, ONCE, 1 dose, On Fri02/02/23 at 2030, Routine [facility] pantoprazol e (PROTONIX) 40 mg EC tablet 02-02 00:00: 00 Yes [id number] 40mg Take 1 tablet by mouth in the morning. [facility] dicyclomine 20 mg tablet 02-02 00:00: 00 Yes [id number] 20mg Take 1 tablet by mouth every 6 (six) hours as needed for Abdominal pain. [facility] ondansetron (ZOFRAN) 4 mg tablet 02-02 00:00: 00 Yes [id number] 4mg Take 1 tablet by mouth every 8 (eight) hours as needed for Nausea and Vomiting (N/V). [facility] al[facility] m[facility]/actuati on inhaler 2021-07 00:00: 00 02-25 00:00 :00 No [id number] 2{puff} Inhale 2 Puffs every 4 (four) hours as needed for Wheezing or Shortness of Breath. [facility] benzonatate 100 mg capsule 2021-07 00:00: 02-25 00:00 :00 No [id number] 100mg Take 1 capsule by mouth 3 (three) times daily as needed for Cough. [facility] dextrometho sandi-patof enesin 10-100 mg/5 mL solution 04-23 00:00: 00 05-01 04:59 :00 No [id number] 5mL Take 5 mL by mouth every 6 (six) hours as needed for Cough for up to 7 days. [facility] fluticasone propionate 50 mcg/actuati on nasal spray 04-23 00:00: 00 05-01 04:59 :00 No [id number] 1{spray } Use 1 [place] in each nostril in the morning for 7 days. [facility] acetonide 0.1 % ointment 12-13 00:00: 00 02-25 00:00 :00 No [id number] Apply to area(s) 2 (two) times daily. [facility] aug betamethaso ne dipropionat e 0.05 % cream 12-13 00:00: 00 02-25 00:00 :00 No [id number] Apply to area(s) 2 (two) times daily. [facility] benzonatate (TESSALON PERLES) 100 mg capsule 08-23 00:00: 00 05-21 00:00 :00 No [id number] 100mg Take 1 capsule by mouth every 8 (eight) hours as needed for Cough. [facility] pantoprazol e 40 mg EC tablet 08-21 00:00: 00 02-25 00:00 :00 No [id number] 40mg Take 1 tablet by mouth 2 (two) times daily. [facility] aug betamethaso ne dipropionat e 0.05 % cream -11 00:00: 00 02-25 00:00 :00 No [id number] Apply to area(s) 2 (two) times daily. Avoid face, armpits, and groin. [facility] triamcinolo ne acetonide 0.1 % ointment 1-11 00:00: 00 02-25 00:00 :00 No [id number] Apply to area(s) 2 (two) times daily. As needed for rash. Avoid face, armpits, and groin. [facility] hydroCHLORO thiazide 25 mg tablet 2020-07 2-30 00:00: 00 02-25 00:00 :00 No [id number] 12.5mg Take 0.5 tablets by mouth daily. [facility] naproxen 500 mg tablet 2020-07 1- 00:00: 00 02-25 00:00 :00 No [id number] 500mg Take 1 tablet by mouth 2 (two) times daily with meals. [facility] hydrOXYzine 25 mg tablet 2020-07 1- 00:00: 00 02-25 00:00 :00 No [id number] 25mg Take 1 tablet by mouth 2 (two) times daily as needed for Anxiety. [facility] DULoxetine 20 mg capsule 2020-07 1- 00:00: 00 02-25 00:00 :00 No [id number] 20mg Take 1 capsule by mouth daily. [facility] hydroCHLORO thiazide 25 mg tablet 2020-07 0-29 00:00: 00 07-26 00:00 :00 No [id number] 12.5mg Take 0.5 tablets by mouth daily. [facility] hydrOXYzine 25 mg tablet 2020-07 0-23 00:00: 00 02-25 00:00 :00 No [id number] 25mg Take 1 tablet by mouth every 6 (six) hours as needed for Anxiety. [facility] fluconazole (DIFLUCAN) 150 mg tablet 04-23 00:00: 00 08-21 00:00 :00 No [id number] Take 1 tablet by mouth every 3 days, for 3 doses [facility] aug betamethaso ne dipropionat e 0.05 % cream 04-23 00:00: 00 08-06 00:00 :00 No [id number] Apply to area(s) 2 (two) times daily. Avoid face, armpits, and groin. [facility] triamcinolo ne acetonide 0.1 % ointment 04-23 00:00: 00 08-06 00:00 :00 No [id number] Apply to area(s) 2 (two) times daily. As needed for rash. Avoid face, armpits, and groin. [facility] pantoprazol e 40 mg EC tablet 04-06 00:00: 00 08-21 00:00 :00 No [id number] 40mg Take 1 tablet by mouth daily. [facility] vitamin w/FA tablet 03-29 00:00: 00 Yes [id number] 1{tbl} Take 1 tablet by mouth daily. [facility] docusate calcium 240 mg capsule 03-29 00:00: 00 02-25 00:00 :00 No [id number] 240mg Take 1 capsule by mouth once daily as needed for Constipati on. [facility] ferrous sulfate 325 mg (65 mg iron) tablet 03-29 00:00: 02-25 00:00 :00 No [id number] 325mg Take 1 tablet by mouth 2 (two) times daily. [facility] ibuprofen 600 mg tablet 03-29 00:00: 02-25 00:00 :00 No [id number] 600mg Take 1 tablet by mouth every 6 (six) hours as needed (Pain). Take with food or milk. [facility] vitamin w/FA tablet 03-29 00:00: 00 02-25 00:00 :00 No [id number] 1{tbl} Take 1 tablet by mouth daily. [facility] pantoprazol e (PROTONIX) 40 mg EC tablet 8-04 00:00: 00 06-06 00:00 :00 No [id number] 40mg Take 1 tablet by mouth daily. [facility] Immunizations Ordered Immunization Name Filled Immunization Name Date Status Comments Source Flu Injectable MDCK Pres-Free (FLUCELVAX) 2024-06-18 00:00:00 Completed [facility] Influenza Virus Vaccine Quad IM, Preserv and ABX Free 6 MO-64 YRS 2021-05-25 00:00:00 Completed [facility] Influenza Virus Vaccine Quad IM, Preserv and ABX Free 6 MO-64 YRS 2021-05-25 00:00:00 Completed [facility] Influenza Virus Vaccine Quad IM, Preserv and ABX Free 6 MO-64 YRS 2021-05-25 00:00:00 Completed [facility] Influenza Virus Vaccine Quad IM, Preserv and ABX Free 6 MO-64 YRS 2021-05-25 00:00:00 Completed [facility] Influenza Virus Vaccine Quad IM, Preserv and ABX Free 6 MO-64 YRS 2021-05-25 00:00:00 Completed [facility] Influenza Virus Vaccine Quad IM, Preserv and ABX Free 6 MO-64 YRS 2021-05-25 00:00:00 Completed [facility] Influenza Virus Vaccine Quad IM, Preserv and ABX Free 6 MO-64 YRS 2021-05-25 00:00:00 Completed [facility] Influenza Virus Vaccine Quad IM, Preserv and ABX Free 6 MO-64 YRS 2021-05-25 00:00:00 Completed [facility] Influenza Virus Vaccine Quad IM, Preserv and ABX Free 6 MO-64 YRS 2021-05-25 00:00:00 Completed [facility] Influenza Virus Vaccine Quad IM, Preserv and ABX Free 6 MO-64 YRS 2021-05-25 00:00:00 Completed [facility] Influenza Virus Vaccine Quad IM, Preserv and ABX Free 6 MO-64 YRS 2021-05-25 00:00:00 Completed [facility] Influenza Virus Vaccine Quad IM, Preserv and ABX Free 6 MO-64 YRS 2021-05-25 00:00:00 Completed [facility] Influenza Virus Vaccine Quad IM, Preserv and ABX Free 6 MO-64 YRS 2021-05-25 00:00:00 Completed [facility] Influenza Virus Vaccine Quad IM, Preserv and ABX Free 6 MO-64 YRS 2021-05-25 00:00:00 Completed [facility] Influenza Virus Vaccine Quad IM, Preserv and ABX Free 6 MO-64 YRS (FLUCELVAX) 2021-05-25 00:00:00 Completed [facility] Influenza Virus Vaccine Quad IM, Preserv and ABX Free 6 MO-64 YRS (FLUCELVAX) 2021-05-25 00:00:00 Completed Influenza Virus Vaccine Quad IM, Preserv and ABX Free 6 MO-64 YRS (FLUCELVAX) 2021-05-25 00:00:00 Completed Influenza Virus Vaccine Quad IM, Preserv and ABX Free 6 MO-64 YRS (FLUCELVAX) 2021-05-25 00:00:00 Completed Influenza Virus Vaccine Quad IM, Preserv and ABX Free 6 MO-64 YRS (FLUCELVAX) 2021-05-25 00:00:00 Completed Influenza Virus Vaccine Quad IM, Preserv and ABX Free 6 MO-64 YRS (FLUCELVAX) 2021-05-25 00:00:00 Completed TDAP 2021-01-17 00:00:00 Completed [facility] TDAP 2021-01-17 00:00:00 Completed [facility] TDAP 2021-01-17 00:00:00 Completed [facility] TDAP 2021-01-17 00:00:00 Completed [facility] TDAP 2021-01-17 00:00:00 Completed [facility] TDAP 2021-01-17 00:00:00 Completed [facility] TDAP 2021-01-17 00:00:00 Completed [facility] TDAP 2021-01-17 00:00:00 Completed [facility] TDAP 2021-01-17 00:00:00 Completed [facility] TDAP 2021-01-17 00:00:00 Completed [facility] TDAP 2021-01-17 00:00:00 Completed [facility] TDAP 2021-01-17 00:00:00 Completed [facility] TDAP 2021-01-17 00:00:00 Completed [facility] TDAP 2021-01-17 00:00:00 Completed [facility] TDAP 2021-01-17 00:00:00 Completed [facility] TDAP 2021-01-17 00:00:00 Completed [facility] TDAP 2021-01-17 00:00:00 Completed [facility] TDAP 2021-01-17 00:00:00 Completed [facility] TDAP 2021-01-17 00:00:00 Completed [facility] TDAP 2021-01-17 00:00:00 Completed [facility] TDAP 2012-09-29 00:00:00 Completed [facility] TDAP 2012-09-29 00:00:00 Completed [facility] TDAP 2012-09-29 00:00:00 Completed [facility] TDAP 2012-09-29 00:00:00 Completed [facility] TDAP 2012-09-29 00:00:00 Completed [facility] TDAP 2012-09-29 00:00:00 Completed [facility] TDAP 2012-09-29 00:00:00 Completed [facility] TDAP 2012-09-29 00:00:00 Completed [facility] TDAP 2012-09-29 00:00:00 Completed [facility] TDAP 2012-09-29 00:00:00 Completed [facility] TDAP 2012-09-29 00:00:00 Completed [facility] TDAP 2012-09-29 00:00:00 Completed [facility] TDAP 2012-09-29 00:00:00 Completed [facility] TDAP 2012-09-29 00:00:00 Completed [facility] TDAP 2012-09-29 00:00:00 Completed [facility] TDAP 2012-09-29 00:00:00 Completed [facility] 2012-09-29 00:00:00 Completed [facility] 2012-09-29 00:00:00 Completed [facility] 2012-09-29 00:00:00 Completed [facility] 2012-09-29 00:00:00 Completed Td 1994-07-28 00:00:00 Completed [facility] Td 1994-07-28 00:00:00 Completed [facility] Td 1994-07-28 00:00:00 Completed [facility] Td 1994-07-28 00:00:00 Completed [facility] Td 1994-07-28 00:00:00 Completed [facility] Td 1994-07-28 00:00:00 Completed [facility] Td 1994-07-28 00:00:00 Completed [facility] TD, NOS 1994-07-28 00:00:00 Completed [facility] TD, NOS 1994-07-28 00:00:00 Completed [facility] TD, NOS 1994-07-28 00:00:00 Completed [facility] TD, NOS 1994-07-28 00:00:00 Completed [facility] TD, NOS 1994-07-28 00:00:00 Completed [facility] TD, NOS 1994-07-28 00:00:00 Completed [facility] TD, NOS 1994-07-28 00:00:00 Completed [facility] TD, NOS 1994-07-28 00:00:00 Completed [facility] TD, NOS 1994-07-28 00:00:00 Completed [facility] TD, NOS 1994-07-28 00:00:00 Completed [facility] TD, NOS 1994-07-28 00:00:00 Completed [facility] TD, NOS 1994-07-28 00:00:00 Completed [facility] TD, NOS 1994-07-28 00:00:00 Completed [facility] TD, NOS Unknown Completed [facility] TDAP Unknown Completed [facility] Influenza Virus Vaccine Quad IM, Preserv and ABX Free 6 MO-64 YRS (FLUCELVAX) Unknown Completed [facility] TD, NOS Unknown Completed [facility] TDAP Unknown Completed [facility] Influenza Virus Vaccine Quad IM, Preserv and ABX Free 6 MO-64 YRS (FLUCELVAX) Unknown Completed [facility] TD, NOS Unknown Completed [facility] TDAP Unknown Completed [facility] Influenza Virus Vaccine Quad IM, Preserv and ABX Free 6 MO-64 YRS (FLUCELVAX) Unknown Completed [facility] TD, NOS Unknown Completed [facility] TDAP Unknown Completed [facility] Influenza Virus Vaccine Quad IM, Preserv and ABX Free 6 MO-64 YRS (FLUCELVAX) Unknown Completed [facility] TD, NOS Unknown Completed [facility] TDAP Unknown Completed [facility] TD, NOS Unknown Completed [facility] TDAP Unknown Completed [facility] TD, NOS Unknown Completed [facility] TDAP Unknown Completed [facility] Influenza Virus Vaccine Quad IM, Preserv and ABX Free 6 MO-64 YRS (FLUCELVAX) Unknown Completed [facility] TD, NOS Unknown Completed [facility] TDAP Unknown Completed [facility] Influenza Virus Vaccine Quad IM, Preserv and ABX Free 6 MO-64 YRS (FLUCELVAX) Unknown Completed [facility] TD, NOS Unknown Completed [facility] TDAP Unknown Completed [facility] Influenza Virus Vaccine Quad IM, Preserv and ABX Free 6 MO-64 YRS (FLUCELVAX) Unknown Completed [facility] TD, NOS Unknown Completed [facility] TDAP Unknown Completed [facility] Influenza Virus Vaccine Quad IM, Preserv and ABX Free 6 MO-64 YRS (FLUCELVAX) Unknown Completed [facility] TD, NOS Unknown Completed [facility] TDAP Unknown Completed [facility] Influenza Virus Vaccine Quad IM, Preserv and ABX Free 6 MO-64 YRS (FLUCELVAX) Unknown Completed [facility] TD, NOS Unknown Completed [facility] TDAP Unknown Completed [facility] Influenza Virus Vaccine Quad IM, Preserv and ABX Free 6 MO-64 YRS (FLUCELVAX) Unknown Completed [facility] TD, NOS Unknown Completed [facility] TDAP Unknown Completed [facility] Influenza Virus Vaccine Quad IM, Preserv and ABX Free 6 MO-64 YRS (FLUCELVAX) Unknown Completed [facility] TD, NOS Unknown Completed [facility] TDAP Unknown Completed [facility] Influenza Virus Vaccine Quad IM, Preserv and ABX Free 6 MO-64 YRS (FLUCELVAX) Unknown Completed [facility] TD, NOS Unknown Completed [facility] TDAP Unknown Completed [facility] Influenza Virus Vaccine Quad IM, Preserv and ABX Free 6 MO-64 YRS (FLUCELVAX) Unknown Completed [facility] TD, NOS Unknown Completed [facility] TDAP Unknown Completed [facility] Influenza Virus Vaccine Quad IM, Preserv and ABX Free 6 MO-64 YRS (FLUCELVAX) Unknown Completed [facility] TD, NOS Unknown Completed [facility] Influenza Virus Vaccine Quad IM, Preserv and ABX Free 6 MO-64 YRS (FLUCELVAX) Unknown Completed [facility] TDAP Unknown Completed [facility] TD, NOS Unknown Completed [facility] TDAP Unknown Completed [facility] Influenza Virus Vaccine Quad IM, Preserv and ABX Free 6 MO-64 YRS (FLUCELVAX) Unknown Completed [facility] TD, NOS Unknown Completed [facility] TDAP Unknown Completed [facility] Influenza Virus Vaccine Quad IM, Preserv and ABX Free 6 MO-64 YRS (FLUCELVAX) Unknown Completed [facility] TD, NOS Unknown Completed [facility] TDAP Unknown Completed [facility] Influenza Virus Vaccine Quad IM, Preserv and ABX Free 6 MO-64 YRS (FLUCELVAX) Unknown Completed [facility] TD, NOS Unknown Completed [facility] TDAP Unknown Completed [facility] Influenza Virus Vaccine Quad IM, Preserv and ABX Free 6 MO-64 YRS (FLUCELVAX) Unknown Completed [facility] TD, NOS Unknown Completed [facility] TDAP Unknown Completed [facility] Influenza Virus Vaccine Quad IM, Preserv and ABX Free 6 MO-64 YRS (FLUCELVAX) Unknown Completed [facility] TD, NOS Unknown Completed [facility] TDAP Unknown Completed [facility] Influenza Virus Vaccine Quad IM, Preserv and ABX Free 6 MO-64 YRS (FLUCELVAX) Unknown Completed [facility] TD, NOS Unknown Completed [facility] TDAP Unknown Completed [facility] Influenza Virus Vaccine Quad IM, Preserv and ABX Free 6 MO-64 YRS (FLUCELVAX) Unknown Completed [facility] TD, NOS Unknown Completed [facility] TDAP Unknown Completed [facility] Influenza Virus Vaccine Quad IM, Preserv and ABX Free 6 MO-64 YRS (FLUCELVAX) Unknown Completed [facility] TD, NOS Unknown Completed [facility] TDAP Unknown Completed [facility] Influenza Virus Vaccine Quad IM, Preserv and ABX Free 6 MO-64 YRS (FLUCELVAX) Unknown Completed [facility] TD, NOS Unknown Completed [facility] TDAP Unknown Completed [facility] Influenza Virus Vaccine Quad IM, Preserv and ABX Free 6 MO-64 YRS (FLUCELVAX) Unknown Completed [facility] TD, NOS Unknown Completed [facility] TDAP Unknown Completed [facility] Influenza Virus Vaccine Quad IM, Preserv and ABX Free 6 MO-64 YRS (FLUCELVAX) Unknown Completed [facility] TD, NOS Unknown Completed [facility] TDAP Unknown Completed [facility] Influenza Virus Vaccine Quad IM, Preserv and ABX Free 6 MO-64 YRS (FLUCELVAX) Unknown Completed [facility] TD, NOS Unknown Completed [facility] TDAP Unknown Completed [facility] Influenza Virus Vaccine Quad IM, Preserv and ABX Free 6 MO-64 YRS (FLUCELVAX) Unknown Completed [facility] TD, NOS Unknown Completed [facility] TDAP Unknown Completed [facility] Influenza Virus Vaccine Quad IM, Preserv and ABX Free 6 MO-64 YRS (FLUCELVAX) Unknown Completed [facility] TD, NOS Unknown Completed [facility] TDAP Unknown Completed [facility] Influenza Virus Vaccine Quad IM, Preserv and ABX Free 6 MO-64 YRS (FLUCELVAX) Unknown Completed [facility] TD, NOS Unknown Completed [facility] TDAP Unknown Completed [facility] Influenza Virus Vaccine Quad IM, Preserv and ABX Free 6 MO-64 YRS (FLUCELVAX) Unknown Completed [facility] TD, NOS Unknown Completed [facility] TDAP Unknown Completed [facility] Influenza Virus Vaccine Quad IM, Preserv and ABX Free 6 MO-64 YRS (FLUCELVAX) Unknown Completed [facility] TD, NOS Unknown Completed [facility] TDAP Unknown Completed [facility] Influenza Virus Vaccine Quad IM, Preserv and ABX Free 6 MO-64 YRS (FLUCELVAX) Unknown Completed [facility] TD, NOS Unknown Completed [facility] TDAP Unknown Completed [facility] Influenza Virus Vaccine Quad IM, Preserv and ABX Free 6 MO-64 YRS (FLUCELVAX) Unknown Completed [facility] TD, NOS Unknown Completed [facility] TDAP Unknown Completed [facility] Influenza Virus Vaccine Quad IM, Preserv and ABX Free 6 MO-64 YRS (FLUCELVAX) Unknown Completed [facility] TD, NOS Unknown Completed [facility] TDAP Unknown Completed [facility] Influenza Virus Vaccine Quad IM, Preserv and ABX Free 6 MO-64 YRS (FLUCELVAX) Unknown Completed [facility] TD, NOS Unknown Completed [facility] TDAP Unknown Completed [facility] Influenza Virus Vaccine Quad IM, Preserv and ABX Free 6 MO-64 YRS (FLUCELVAX) Unknown Completed [facility] TD, NOS Unknown Completed [facility] TDAP Unknown Completed [facility] Influenza Virus Vaccine Quad IM, Preserv and ABX Free 6 MO-64 YRS (FLUCELVAX) Unknown Completed [facility] TD, NOS Unknown Completed [facility] TDAP Unknown Completed [facility] Influenza Virus Vaccine Quad IM, Preserv and ABX Free 6 MO-64 YRS (FLUCELVAX) Unknown Completed [facility] TD, NOS Unknown Completed [facility] TDAP Unknown Completed [facility] Influenza Virus Vaccine Quad IM, Preserv and ABX Free 6 MO-64 YRS (FLUCELVAX) Unknown Completed [facility] TD, NOS Unknown Completed [facility] TDAP Unknown Completed [facility] Influenza Virus Vaccine Quad IM, Preserv and ABX Free 6 MO-64 YRS (FLUCELVAX) Unknown Completed [facility] Vital Signs Vital Name Observation Time Observation Value Comments S ource Systolic blood pressure 2024-06-18 20:13:00 145 mm[Hg] [facility] Diastolic blood pressure 2024-06-18 20:13:00 96 mm[Hg] [facility] Heart rate 2024-06-18 20:11:00 90 /min [facility] Body temperature 2024-06-18 20:11:00 36.39 [place] [facility] Body height 2024-06-18 20:11:00 165.1 cm [facility] Body weight 2024-06-18 20:11:00 151.501 kg [facility] BMI 2024-06-18 20:11:00 55.58 kg/m2 [facility] Oxygen saturation in Arterial blood by Pulse oximetry 2024-06-18 20:11:00 97 /min [facility] Heart rate 2024-05-04 14:17:00 105 /min [facility] Body temperature 2024-05-04 14:17:00 36.06 [place] [facility] Respiratory rate 2024-05-04 14:17:00 18 /min [facility] Body height 2024-05-04 14:17:00 165.1 cm [facility] Body weight 2024-05-04 14:17:00 155.039 kg [facility] BMI 2024-05-04 14:17:00 56.88 kg/m2 [facility] Oxygen saturation in Arterial blood by Pulse oximetry 2024-05-04 14:17:00 94 /min [facility] Systolic blood pressure 2024-04-23 14:17:00 140 mm[Hg] [facility] Diastolic blood pressure 2024-04-23 14:17:00 106 mm[Hg] [facility] Heart rate 2024-04-23 14:17:00 87 /min [facility] Body temperature 2024-04-23 14:17:00 36.17 [place] [facility] Oxygen saturation in Arterial blood by Pulse oximetry 2024-04-23 14:17:00 93 /min [facility] Body height 2024-04-23 14:12:00 165.1 cm [facility] Body weight 2024-04-23 14:12:00 159.439 kg [facility] BMI 2024-04-23 14:12:00 58.49 kg/m2 [facility] Systolic blood pressure 2024-04-21 12:38:00 146 mm[Hg] [facility] Diastolic blood pressure 2024-04-21 12:38:00 78 mm[Hg] [facility] Heart rate 2024-04-21 12:38:00 76 /min [facility] Body temperature 2024-04-21 12:38:00 36.61 [place] [facility] Respiratory rate 2024-04-21 12:38:00 18 /min [facility] Oxygen saturation in Arterial blood by Pulse oximetry 2024-04-21 12:38:00 99 /min [facility] Body height 2024-04-21 09:50:00 165.1 cm [facility] Body weight 2024-04-21 09:50:00 161.027 kg [facility] BMI 2024-04-21 09:50:00 59.08 kg/m2 [facility] Systolic blood pressure 2024-04-19 19:53:00 123 mm[Hg] [facility] Diastolic blood pressure 2024-04-19 19:53:00 84 mm[Hg] [facility] Heart rate 2024-04-19 19:53:00 86 /min [facility] Body height 2024-04-19 19:53:00 165.1 cm [facility] Body weight 2024-04-19 19:53:00 160.483 kg [facility] BMI 2024-04-19 19:53:00 58.88 kg/m2 [facility] Oxygen saturation in Arterial blood by Pulse oximetry 2024-04-19 19:53:00 96 /min [facility] Systolic blood pressure 2024-04-16 05:45:00 133 mm[Hg] [facility] Diastolic blood pressure 2024-04-16 05:45:00 94 mm[Hg] [facility] Heart rate 2024-04-16 05:45:00 94 /min [facility] Respiratory rate 2024-04-16 05:45:00 20 /min [facility] Oxygen saturation in Arterial blood by Pulse oximetry 2024-04-16 05:45:00 95 /min [facility] Body temperature 2024-04-15 23:47:00 36.61 [place] [facility] Body height 2024-04-15 23:43:00 165.1 cm [facility] Body weight 2024-04-15 23:43:00 154.223 kg [facility] BMI 2024-04-15 23:43:00 56.58 kg/m2 [facility] Systolic blood pressure 2024-04-14 00:00:00 143 mm[Hg] [facility] Diastolic blood pressure 2024-04-14 00:00:00 89 mm[Hg] [facility] Heart rate 2024-04-14 00:00:00 88 /min [facility] Body temperature 2024-04-14 00:00:00 36.94 [place] [facility] Respiratory rate 2024-04-14 00:00:00 18 /min [facility] Oxygen saturation in Arterial blood by Pulse oximetry 2024-04-14 00:00:00 97 /min [facility] Body height 2024-04-13 19:11:00 165.1 cm [facility] Body weight 2024-04-13 19:11:00 163.295 kg [facility] BMI 2024-04-13 19:11:00 59.91 kg/m2 [facility] Body height 2024-03-22 14:15:00 165.1 cm [facility] Body weight 2024-03-22 14:15:00 168.466 kg [facility] BMI 2024-03-22 14:15:00 61.80 kg/m2 [facility] Systolic blood pressure 2024-02-18 18:13:00 144 mm[Hg] [facility] Diastolic blood pressure 2024-02-18 18:13:00 90 mm[Hg] [facility] Heart rate 2024-02-18 18:11:00 102 /min [facility] Body temperature 2024-02-18 18:11:00 36.56 [place] [facility] Respiratory rate 2024-02-18 18:11:00 18 /min [facility] Body height 2024-02-18 18:11:00 165.1 cm [facility] Body weight 2024-02-18 18:11:00 164.61 kg [facility] BMI 2024-02-18 18:11:00 60.39 kg/m2 [facility] Oxygen saturation in Arterial blood by Pulse oximetry 2024-02-18 18:11:00 93 /min [facility] Systolic blood pressure 2024-01-28 01:45:00 174 mm[Hg] [facility] Diastolic blood pressure 2024-01-28 01:45:00 97 mm[Hg] [facility] Heart rate 2024-01-28 01:45:00 72 /min [facility] Respiratory rate 2024-01-28 01:45:00 18 /min [facility] Oxygen saturation in Arterial blood by Pulse oximetry 2024-01-28 01:45:00 95 /min [facility] Body temperature 2024-01-27 21:15:00 36.72 [place] [facility] Body weight 2024-01-27 21:15:00 158.759 kg [facility] BMI 2024-01-27 21:15:00 58.24 kg/m2 [facility] Body height 2024-01-27 21:13:00 165.1 cm [facility] Systolic blood pressure 2023-11-26 17:51:00 143 mm[Hg] [facility] Diastolic blood pressure 2023-11-26 17:51:00 99 mm[Hg] [facility] Heart rate 2023-11-26 17:47:00 95 /min [facility] Body temperature 2023-11-26 17:47:00 36.44 [place] [facility] Respiratory rate 2023-11-26 17:47:00 18 /min [facility] Body height 2023-11-26 17:47:00 162.6 cm [facility] Body weight 2023-11-26 17:47:00 157.171 kg [facility] BMI 2023-11-26 17:47:00 59.48 kg/m2 [facility] Oxygen saturation in Arterial blood by Pulse oximetry 2023-11-26 17:47:00 97 /min [facility] Systolic blood pressure 2023-10-10 19:40:00 113 mm[Hg] [facility] Diastolic blood pressure 2023-10-10 19:40:00 80 mm[Hg] [facility] Heart rate 2023-10-10 19:34:00 94 /min [facility] Body temperature 2023-10-10 19:34:00 35.94 [place] [facility] Respiratory rate 2023-10-10 19:34:00 18 /min [facility] Body height 2023-10-10 19:34:00 165.1 cm [facility] Body weight 2023-10-10 19:34:00 155.765 kg [facility] BMI 2023-10-10 19:34:00 57.14 kg/m2 [facility] Oxygen saturation in Arterial blood by Pulse oximetry 2023-10-10 19:34:00 96 /min [facility] Systolic blood pressure 2023-10-04 00:00:00 159 mm[Hg] [facility] Diastolic blood pressure 2023-10-04 00:00:00 98 mm[Hg] [facility] Heart rate 2023-10-04 00:00:00 88 /min [facility] Respiratory rate 2023-10-04 00:00:00 18 /min [facility] Oxygen saturation in Arterial blood by Pulse oximetry 2023-10-04 00:00:00 96 /min [facility] Body temperature 2023-10-03 21:06:00 37.33 [place] [facility] Body height 2023-10-03 21:06:00 165.1 cm [facility] Body weight 2023-10-03 21:06:00 156.491 kg [facility] BMI 2023-10-03 21:06:00 57.41 kg/m2 [facility] Systolic blood pressure 2023-05-07 03:00:00 145 mm[Hg] [facility] Diastolic blood pressure 2023-05-07 03:00:00 87 mm[Hg] [facility] Heart rate 2023-05-07 03:00:00 85 /min [facility] Respiratory rate 2023-05-07 03:00:00 16 /min [facility] Oxygen saturation in Arterial blood by Pulse oximetry 2023-05-07 03:00:00 97 /min [facility] Body temperature 2023-05-06 23:18:00 36.72 [place] [facility] Body height 2023-05-06 23:18:00 165.1 cm [facility] Body weight 2023-05-06 23:18:00 156.491 kg [facility] BMI 2023-05-06 23:18:00 57.41 kg/m2 [facility] Body temperature 2023-04-30 19:18:00 36.78 [place] [facility] Heart rate 2023-04-30 13:37:00 72 /min [facility] Respiratory rate 2023-04-30 13:37:00 16 /min [facility] Body height 2023-04-30 13:37:00 165.1 cm [facility] Body weight 2023-04-30 13:37:00 158.759 kg [facility] BMI 2023-04-30 13:37:00 58.24 kg/m2 [facility] Systolic blood pressure 2023-04-30 12:22:00 140 mm[Hg] [facility] Diastolic blood pressure 2023-04-30 12:22:00 82 mm[Hg] [facility] Oxygen saturation in Arterial blood by Pulse oximetry 2023-04-30 12:22:00 96 /min [facility] Systolic blood pressure 2023-04-29 05:25:00 142 mm[Hg] [facility] Diastolic blood pressure 2023-04-29 05:25:00 87 mm[Hg] [facility] Heart rate 2023-04-29 05:25:00 81 /min [facility] Body temperature 2023-04-29 05:25:00 36.5 [place] [facility] Respiratory rate 2023-04-29 05:25:00 16 /min [facility] Oxygen saturation in Arterial blood by Pulse oximetry 2023-04-29 05:25:00 93 /min [facility] Body height 2023-04-28 13:19:00 165.1 cm [facility] Body weight 2023-04-28 13:19:00 158.759 kg [facility] BMI 2023-04-28 13:19:00 58.24 kg/m2 [facility] Systolic blood pressure 2023-04-25 18:56:00 133 mm[Hg] [facility] Diastolic blood pressure 2023-04-25 18:56:00 81 mm[Hg] [facility] Heart rate 2023-04-25 18:56:00 86 /min [facility] Respiratory rate 2023-04-25 18:56:00 18 /min [facility] Oxygen saturation in Arterial blood by Pulse oximetry 2023-04-25 18:56:00 98 /min [facility] Body temperature 2023-04-25 18:26:00 36.72 [place] [facility] Body height 2023-04-25 16:53:00 165.1 cm [facility] Body weight 2023-04-25 16:53:00 158.759 kg [facility] BMI 2023-04-25 16:53:00 58.24 kg/m2 [facility] Systolic blood pressure 2023-04-09 00:03:00 172 mm[Hg] [facility] Diastolic blood pressure 2023-04-09 00:03:00 102 mm[Hg] [facility] Heart rate 2023-04-09 00:03:00 105 /min [facility] Body temperature 2023-04-09 00:03:00 37.22 [place] [facility] Respiratory rate 2023-04-09 00:03:00 18 /min [facility] Oxygen saturation in Arterial blood by Pulse oximetry 2023-04-09 00:03:00 98 /min [facility] Body height 2023-04-08 21:33:00 165.1 cm [facility] Body weight 2023-04-08 21:33:00 163.295 kg [facility] BMI 2023-04-08 21:33:00 59.91 kg/m2 [facility] Systolic blood pressure 2023-03-14 21:55:00 169 mm[Hg] [facility] Diastolic blood pressure 2023-03-14 21:55:00 109 mm[Hg] [facility] Heart rate 2023-03-14 21:55:00 97 /min [facility] Body temperature 2023-03-14 21:55:00 37.5 [place] [facility] Respiratory rate 2023-03-14 21:55:00 20 /min [facility] Body weight 2023-03-14 21:55:00 161.934 kg [facility] BMI 2023-03-14 21:55:00 59.41 kg/m2 [facility] Oxygen saturation in Arterial blood by Pulse oximetry 2023-03-14 21:55:00 97 /min [facility] Systolic blood pressure 2023-03-13 15:58:00 135 mm[Hg] BP recheck Dr. Smalls notified [facility] Diastolic blood pressure 2023-03-13 15:58:00 91 mm[Hg] BP recheck Dr. Smalls notified [facility] Heart rate 2023-03-13 15:58:00 85 /min [facility] Body temperature 2023-03-13 15:56:00 36.44 [place] [facility] Respiratory rate 2023-03-13 15:56:00 20 /min [facility] Body height 2023-03-13 15:56:00 165.1 cm [facility] Body weight 2023-03-13 15:56:00 162.206 kg [facility] BMI 2023-03-13 15:56:00 59.51 kg/m2 [facility] Oxygen saturation in Arterial blood by Pulse oximetry 2023-03-13 15:56:00 96 /min [facility] Systolic blood pressure 2023-03-12 01:00:00 131 mm[Hg] [facility] Diastolic blood pressure 2023-03-12 01:00:00 72 mm[Hg] [facility] Heart rate 2023-03-12 01:00:00 74 /min [facility] Respiratory rate 2023-03-12 01:00:00 18 /min [facility] Oxygen saturation in Arterial blood by Pulse oximetry 2023-03-12 01:00:00 98 /min [facility] Body temperature 2023-03-11 22:41:00 36.83 Dinorah [facility] Body weight 2023-03-11 22:41:00 162.388 kg [facility] BMI 2023-03-11 22:41:00 59.57 kg/m2 [facility] Systolic blood pressure 2023-02-26 21:16:00 143 mm[Hg] [facility] Diastolic blood pressure 2023-02-26 21:16:00 97 mm[Hg] [facility] Heart rate 2023-02-26 21:16:00 86 /min [facility] Body temperature 2023-02-26 21:01:00 36 Dinorah [facility] Respiratory rate 2023-02-26 21:01:00 18 /min [facility] Oxygen saturation in Arterial blood by Pulse oximetry 2023-02-26 21:01:00 95 /min [facility] Body weight 2023-02-26 08:15:00 166.47 kg [facility] BMI 2023-02-26 08:15:00 61.07 kg/m2 [facility] Body height 2023-02-26 01:35:00 165.1 cm [facility] Systolic blood pressure 2023-02-03 04:00:00 150 mm[Hg] [facility] Diastolic blood pressure 2023-02-03 04:00:00 112 mm[Hg] [facility] Heart rate 2023-02-03 04:00:00 95 /min [facility] Respiratory rate 2023-02-03 04:00:00 20 /min [facility] Oxygen saturation in Arterial blood by Pulse oximetry 2023-02-03 04:00:00 95 /min [facility] Body temperature 2023-02-03 00:27:00 37.39 Dinorah [facility] Body height 2023-02-03 00:27:00 165.1 cm [facility] Body weight 2023-02-03 00:27:00 174.136 kg [facility] BMI 2023-02-03 00:27:00 63.88 kg/m2 [facility] Systolic blood pressure 2022-05-21 18:29:00 154 mm[Hg] [facility] Diastolic blood pressure 2022-05-21 18:29:00 117 mm[Hg] [facility] Heart rate 2022-05-21 18:29:00 106 /min [facility] Body temperature 2022-05-21 18:29:00 37.22 Dinorah [facility] Respiratory rate 2022-05-21 18:29:00 22 /min [facility] Body height 2022-05-21 18:29:00 165.1 cm [facility] Body weight 2022-05-21 18:29:00 158.759 kg [facility] BMI 2022-05-21 18:29:00 58.24 kg/m2 [facility] Oxygen saturation in Arterial blood by Pulse oximetry 2022-05-21 18:29:00 95 /min [facility] Systolic blood pressure 2022-04-23 19:30:00 128 mm[Hg] [facility] Diastolic blood pressure 2022-04-23 19:30:00 85 mm[Hg] [facility] Heart rate 2022-04-23 19:28:00 90 /min [facility] Body temperature 2022-04-23 19:28:00 35.67 Dinorah [facility] Respiratory rate 2022-04-23 19:28:00 18 /min [facility] Body height 2022-04-23 19:28:00 165.1 cm [facility] Body weight 2022-04-23 19:28:00 170.099 kg [facility] BMI 2022-04-23 19:28:00 62.40 kg/m2 [facility] Oxygen saturation in Arterial blood by Pulse oximetry 2022-04-23 19:28:00 98 /min room air [facility] Procedures Procedure Date / Time Performed Performing Clinician Source FLU VACC ([id number]), 6 MO-6 4 YRS, .5ML, IM, TIV (FLUCELVAX) 2024-06-18 21:12:17 Sabino Simmons [facility] POCT URINALYSIS 2024-04-23 15:17:00 Sabino Simmons [facility] CT ABDOMEN PELVIS WO CONTRAST 2024-04-21 11:27:02 Dmaion Hamlin [facility] LIPASE 2024-04-16 01:53:00 Kayden Mcduffie [facility] COMP. METABOLIC PANEL (02040) 2024-04-16 01:53:00 Kayden Mcduffie [facility] CBC WITH DIFF 2024-04-16 01:53:00 Kayden Mcduffie [facility] URINALYSIS 2024-04-16 01:53:00 Kayden Mcduffie [facility] POCT TEST 2024-04-16 01:50:00 Kayden Mcduffie [facility] CT ABDOMEN PELVIS W CONTRAST 2024-04-13 21:44:40 Nadiya Bellamy [facility] POCT TEST 2024-04-13 20:30:00 Nadiya Bellamy [facility] LIPASE 2024-04-13 20:27:00 Nadiya Bellamy [facility] COMP. METABOLIC PANEL (22333) 2024-04-13 20:27:00 Nadiya Bellamy [facility] CBC WITH DIFF 2024-04-13 20:27:00 Nadiya Bellamy [facility] URINALYSIS 2024-04-13 20:27:00 Nadiya Bellamy [facility] US DUPLEX VENOUS ARMS BILATE RAL - BY VASCULAR LAB 2024-04-02 20:51:41 Sabino Simmons [facility] DUPLEX VENOUS LEGS BILATERAL - BY VASCULAR LAB 2024-04-02 20:51:36 Sabino Simmons [facility] URINALYSIS 2024-01-28 01:22:00 Taylor Malcolm [facility] POCT TEST 2024-01-28 01:22:00 Taylor Malcolm [facility] CT ABDOMEN PELVIS W CONTRAST 2024-01-28 00:41:02 Taylor Malcolm [facility] LIPASE 2024-01-27 23:30:00 Taylor Malcolm [facility] COMP. METABOLIC PANEL ([id number]) 2024-01-27 23:30:00 Taylor Malcolm [facility] CBC WITH DIFF 2024-01-27 23:30:00 Taylor Malcolm [facility] TROPONIN I 2023-10-03 21:38:00 Taylor Bynum [facility] BASIC METABOLIC PANEL (NA, K , CL, CO2, GLUCOSE, BUN, CREATININE, CA) 2023-10-03 21:38:00 Taylor Bynum [facility] CBC WITH DIFF 2023-10-03 21:38:00 Taylor Bynum [facility] XR CHEST 1 VW 2023-10-03 21:16:00 Taylor Bynum [facility] CT ABDOMEN PELVIS W CONTRAST 2023-05-07 01:53:39 Alice Pena [facility] POCT TEST 2023-05-06 23:53:00 Alice Pena [facility] LIPASE 2023-05-06 23:51:00 Alice Pena [facility] COMP. METABOLIC PANEL (64309) 2023-05-06 23:51:00 Alice Pena [facility] CBC WITH DIFF 2023-05-06 23:51:00 Alice Pena [facility] PROTHROMBIN TIME / INR 2023-05-06 23:51:00 Alice Pena [facility] ACTIVATED PARTIAL THRMPLAS CARLO 2023-04-27 0 [facility] FOR [facility]AGNOSI S AND TREATMENT 2023-05-06 23:11:21 Doctor Unassigned, Mosses [facility] MAGNESIUM 2023-04-30 18:22:00 Ever [facility] BASIC METABOLIC PANEL (NA, K , CL, CO2, GLUCOSE, BUN, CREATININE, CA) 2023-04-30 18:22:00 Ever [facility] MAGNESIUM 2023-04-30 18:22:00 Ever [facility] BASIC METABOLIC PANEL (NA, K , CL, CO2, GLUCOSE, BUN, CREATININE, CA) 2023-04-30 18:22:00 Ever [facility] CBC WITH DIFF 2023-04-30 10:34:00 Ever [facility] CBC WITH DIFF 2023-04-30 10:34:00 Ever [facility] DUPLEX VENOUS ARM LEFT - BY VASCULAR LAB 2023-04-29 16:08:41 Ron Hurt [facility] DUPLEX VENOUS ARM LEFT - BY VASCULAR LAB 2023-04-29 16:08:41 Ron Hurt [facility] LAPAROSCOPIC ROBOTIC ASSISTE D CHOLECYSTECTOMY 2023-04-29 11:49:00 Violette [facility] LAPAROSCOPIC ROBOTIC ASSISTE D CHOLECYSTECTOMY 2023-04-29 11:49:00 Violette, Antoinette [facility] PHOSPHORUS 2023-04-29 09:05:00 Nipglynn [facility] MAGNESIUM 2023-04-29 09:05:00 [facility] HEPATIC FUNCTION PANEL (8007 6) (ALB,T.PRO,BILI T,BU/BC,ALT,AST,ALK PHOS) 2023-04-29 09:05[facility]00 [facility] 2023-04-29 09:05[facility]00 [facility] 2023-04-29 09:05:00 [facility] 2023-04-29 09:05:00 [facility] HE[facility]IC FUNCTION PANEL (8007 6) (ALB,T.PRO,BILI T,BU/BC,ALT,AST,ALK PHOS) 2023-04-29 09:05:00 [facility] WITHOUT DIFF 2023-04-29 09:05:00 [facility]ING 2023-04-28 19:02:00 [facility] HB ABO GROUPING 2023-04-28 19:02:00 [facility] HB ABO GROUPING 2023-04-28 19:02:00 [facility] PHOSPHORUS 2023-04-28 09:26:00 [facility] 2023-04-28 09:26:00 [facility] HEPATIC FUNCTION PANEL (8007 6) (ALB,T.PRO,BILI T,BU/BC,ALT,AST,ALK PHOS) 2023-04-28 09:26:00 [facility] BASIC METABOLIC PANEL (NA, K , CL, CO2, GLUCOSE, BUN, CREATININE, CA) 2023-04-28 09:26:00 [facility] WITHOUT DIFF 2023-04-28 09:26:00 Nipper, [facility] PHOSPHORUS 2023-04-28 09:26:00 Nipper, [facility] MAGNESIUM 2023-04-28 09:26:00 [facility] HEPATIC [facility]CTION PANEL (8007 6) (ALB,T.PRO,BILI T,BU/BC,ALT,AST,ALK PHOS) 2023-04-28 09:26:00 [facility] BASIC METABOLIC PANEL (NA, K , CL, CO2, GLUCOSE, BUN, CREATININE, CA) 2023-04-28 09:26:00 Nipper, [facility] CBC WITHOUT DIFF 2023-04-28 09:26:00 [facility] PHOSPHORUS 2023-04-28 09:26:00 Nipper, [facility] MAGNESIUM 2023-04-28 09:26:00 [facility] PANEL (8007 6) (ALB,T.PRO,BILI T,BU/BC,ALT,AST,ALK PHOS) 2023-04-28 09:26:00 Nipper, [facility] BASIC METABOLIC PANEL (NA, K , CL, CO2, GLUCOSE, BUN, CREATININE, CA) 2023-04-28 09:26:00 Nipper, [facility] CBC WITHOUT DIFF 2023-04-28 09:26:00 Nipper, [facility] PHOSPHORUS 2023-04-27 10:46:00 Nipper, [facility] MAGNESIUM 2023-04-27 10:46:00 Nipper, [facility] HEPATIC FUNCTION PANEL (8007 6) (ALB,T.PRO,BILI T,BU/BC,ALT,AST,ALK PHOS) 2023-04-27 10:46:00 [facility] BASIC METABOLIC PANEL (NA, K , CL, CO2, GLUCOSE, BUN, CREATININE, CA) 2023-04-27 10:46:00 Nipper, [facility] CBC WITHOUT DIFF 2023-04-27 10:46:00 Nipper, [facility] PHOSPHORUS 2023-04-27 10:46:00 Nipper, [facility] MAGNESIUM 2023-04-27 10:46:00 [facility] HEPATIC FUNCTION PANEL (8007 6) (ALB,T.PRO,BILI T,BU/BC,ALT,AST,ALK PHOS) 2023-04-27 10:46:00 Nipper, [facility] BASIC METABOLIC PANEL (NA, K , CL, CO2, GLUCOSE, BUN, CREATININE, CA) 2023-04-27 10:46:00 Nipper, [facility] CBC WITHOUT DIFF 2023-04-27 10:46:00 Nipper, [facility] PHOSPHORUS 2023-04-27 10:46:00 Nipper, [facility] MAGNESIUM 2023-04-27 10:46[facility] (8007 6) (ALB,T.PRO,BILI T,BU/BC,ALT,AST,ALK PHOS) 2023-04-27 10:46:00 Nipper, [facility] BASIC METABOLIC PANEL (NA, K , CL, CO2, GLUCOSE, BUN, CREATININE, CA) 2023-04-27 10:46:00 Nipper, [facility] CBC WITHOUT DIFF 2023-04-27 10:46:00 Nipper, [facility] PHOSPHORUS 2023-04-26 10:34:00 Nipper, [facility] LIPASE 2023-04-26 10:34:00 Pacheco [facility] MAGNESIUM 2023-04-26 10:34:00 Nipper, [facility] HEPATIC FUNCTION PANEL (8007 6) (ALB,T.PRO,BILI T,BU/BC,ALT,AST,ALK PHOS) 2023-04-26 10:34:00 [facility] BASIC METABOLIC PANEL (NA, K , CL, CO2, GLUCOSE, BUN, CREATININE, CA) 2023-04-26 10:34:00 Nipper, [facility] CBC WITHOUT DIFF 2023-04-26 10:34:00 Nipper, [facility] PHOSPHORUS 2023-04-26 10:34:00 Nipper, [facility] LIPASE 2023-04-26 10:34:00 Gulloyd [facility] MAGNESIUM 2023-04-26 10:34:00 Nipper, [facility] HEPATIC FUNCTION PANEL (8007 6) (ALB,T.PRO,BILI T,BU/BC,ALT,AST,ALK PHOS) 2023-04-26 10:34:00 Nipper, [facility] BASIC METABOLIC PANEL (NA, K , CL, CO2, GLUCOSE, BUN, CREATININE, CA) 2023-04-26 10:34:00 Nipper, [facility] CBC WITHOUT DIFF 2023-04-26 10:34:00 Nipper [facility] PHOSPHORUS 2023-04-26 10:34:00 Nipper, [facility] LIPASE 2023-04-26 10:34:00 Guba [facility] MAGNESIUM 2023-04-26 10:34:00 Nipper, [facility] HEPATIC FUNCTION PANEL (8007 6) (ALB,T.PRO,BILI T,BU/BC,ALT,AST,ALK PHOS) 2023-04-26 10:34:00 Nipper, [facility] BASIC METABOLIC PANEL (NA, K , CL, CO2, GLUCOSE, BUN, CREATININE, CA) 2023-04-26 10:34:00 Nipper, [facility] CBC WITHOUT DIFF 2023-04-26 10:34:00 Licha [facility] SURGICAL PATHOLOGY EXAM 2023-04-25 18:13:00 Jennifer [facility] SURGICAL PATHOLOGY EXAM 2023-04-25 18:13:00 Jennifer [facility] ESOPHAGOGASTRODUODENOSCOPY 2023-04-25 17:40:00 Jennifer [facility] ESOPHAGOGASTRODUODENOSCOPY 2023-04-25 17:40:00 Marcos Rodriguez [facility] EGD (ENDO) 2023-04-25 16:55:25 Randy Chauhan [facility] EGD (ENDO) 2023-04-25 16:55:25 Randy Chauhan [facility] EGD (ENDO) 2023-04-25 16:55:25 Randy Chauhan [facility] PHOSPHORUS 2023-04-25 10:33:00 Nipper, [facility] MAGNESIUM 2023-04-25 10:33:00 Nipper, [facility] HEPATIC FUNCTION PANEL (8007 6) (ALB,T.PRO,BILI T,BU/BC,ALT,AST,ALK PHOS) 2023-04-25 10:33:00 [facility] BASIC METABOLIC PANEL (NA, K , CL, CO2, GLUCOSE, BUN, CREATININE, CA) 2023-04-25 10:33:00 Nipper, [facility] CBC WITHOUT DIFF 2023-04-25 10:33:00 Nipper, [facility] PHOSPHORUS 2023-04-25 10:33:00 Nipper, [facility] MAGNESIUM 2023-04-25 10:33:00 Nipper, [facility] HEPATIC FUNCTION PANEL (8007 6) (ALB,T.PRO,BILI T,BU/BC,ALT,AST,ALK PHOS) 2023-04-25 10:33:00 Nipper, [facility] BASIC METABOLIC PANEL (NA, K , CL, CO2, GLUCOSE, BUN, CREATININE, CA) 2023-04-25 10:33:00 Nipper, [facility] CBC WITHOUT DIFF 2023-04-25 10:33:00 Nipper, [facility] PHOSPHORUS 2023-04-25 10:33:00 Nipper, [facility] MAGNESIUM 2023-04-25 10:33:00 Nipper, [facility] HEPATIC FUNCTION PANEL (8007 6) (ALB,T.PRO,BILI T,BU/BC,ALT,AST,ALK PHOS) 2023-04-25 10:33:00 Licha, [facility] BASIC METABOLIC PANEL (NA, K , CL, CO2, GLUCOSE, BUN, CREATININE, CA) 2023-04-25 10:33:00 Nipglynn, [facility] CBC WITHOUT DIFF 2023-04-25 10:33:00 [facility] ENDOSCOPY PROCEDURE DOCUMENTATION 04-25 05:01:00 Doctor Unassigned, Mosses [facility] ENDOSCOPY PROCEDURE DOCUMENTATION 04-25 05:01:00 Doctor Unassigned, Mosses [facility] ENDOSCOPY PROCEDURE DOCUMENTATION 04-25 05:01:00 Doctor Unassigned, Mosses [facility] POCT TEST 2023-04-25 00:00:00 Dottie [facility] POCT TEST 2023-04-25 00:00:00 Dottie [facility] POCT TEST 2023-04-25 00:00:00 Dottie [facility] PHOSPHORUS 2023-04-24 10:22:00 Nipper, [facility] MAGNESIUM 2023-04-24 10:22:00 Nipglynn, [facility] HEPATIC FUNCTION PANEL (8007 6) (ALB,T.PRO,BILI T,BU/BC,ALT,AST,ALK PHOS) 2023-04-24 10:22:00 Licha [facility] BASIC METABOLIC PANEL (NA, K , CL, CO2, GLUCOSE, BUN, CREATININE, CA) 2023-04-24 10:22:00 Nipglynn, [facility] CBC WITHOUT DIFF 2023-04-24 10:22:00 Nipglynn, [facility] PHOSPHORUS 2023-04-24 10:22:00 Nipper, [facility] MAGNESIUM 2023-04-24 10:22:00 Nipglynn, [facility] HEPATIC FUNCTION PANEL (8007 6) (ALB,T.PRO,BILI T,BU/BC,ALT,AST,ALK PHOS) 2023-04-24 10:22:00 Nipper, [facility] BASIC METABOLIC PANEL (NA, K , CL, CO2, GLUCOSE, BUN, CREATININE, CA) 2023-04-24 10:22:00 Nipper, [facility] CBC WITHOUT DIFF 2023-04-24 10:22:00 Nipper, [facility] PHOSPHORUS 2023-04-24 10:22:00 Nipper, [facility] MAGNESIUM 2023-04-24 10:22:00 Nipper, [facility] HEPATIC FUNCTION PANEL (8007 6) (ALB,T.PRO,BILI T,BU/BC,ALT,AST,ALK PHOS) 2023-04-24 10:22:00 [facility], [facility] BASIC METABOLIC PANEL (NA, K , CL, CO2, GLUCOSE, BUN, CREATININE, CA) 2023-04-24 10:22:00 [facility] CBC WITHOUT DIFF 2023-04-24 10:22:00 Nipper, [facility] PHOSPHORUS 2023-04-23 09:58:00 Nipper, [facility] MAGNESIUM 2023-04-23 09:58:00 Nipper, [facility] HEPATIC FUNCTION PANEL (8007 6) (ALB,T.PRO,BILI T,BU/BC,ALT,AST,ALK PHOS) 2023-04-23 09:58:00 [facility] BASIC METABOLIC PANEL (NA, K , CL, CO2, GLUCOSE, BUN, CREATININE, CA) 2023-04-23 09:58:00 Nipper, [facility] CBC WITHOUT DIFF 2023-04-23 09:58:00 Nipper, [facility] PHOSPHORUS 2023-04-23 09:58:00 Nipper, [facility] MAGNESIUM 2023-04-23 09:58:00 Nipper, [facility] HEPATIC FUNCTION PANEL (8007 6) (ALB,T.PRO,BILI T,BU/BC,ALT,AST,ALK PHOS) 2023-04-23 09:58:00 Nipper, [facility] BASIC METABOLIC PANEL (NA, K , CL, CO2, GLUCOSE, BUN, CREATININE, CA) 2023-04-23 09:58:00 Nipglynn [facility] CBC WITHOUT DIFF 2023-04-23 09:58:00 Licha [facility] PHOSPHORUS 2023-04-23 09:58:00 Nipglynn [facility] MAGNESIUM 2023-04-23 09:58:00 Nipglynn [facility] HEPATIC FUNCTION PANEL (8007 6) (ALB,T.PRO,BILI T,BU/BC,ALT,AST,ALK PHOS) 2023-04-23 09:58:00 Zeusglynn [facility] BASIC METABOLIC PANEL (NA, K , CL, CO2, GLUCOSE, BUN, CREATININE, CA) 2023-04-23 09:58:00 Zeusglynn [facility] CBC WITHOUT DIFF 2023-04-23 09:58:00 Nipglynn [facility] CT ABDOMEN PELVIS W CONTRAST 2023-04-23 01:21:37 Nipglynn, [facility] CT ABDOMEN PELVIS W CONTRAST 2023-04-23 01:21:37 Nipper, [facility] CT ABDOMEN PELVIS W CONTRAST 2023-04-23 01:21:37 Nipglynn [facility] US ABDOMEN LIMITED 2023-04-22 03:10:[address] [facility] US ABDOMEN LIMITED 2023-04-22 03:10:[address] [facility] ABDOMEN LIMITED 2023-04-22 03:10:[address] [facility] HB ECG ROUTINE & RHYTHM STRIP 2023-04-22 00:59:[address] [facility] HB ECG ROUTINE & RHYTHM STRIP 2023-04-22 00:59:[address] [facility] HB ECG ROUTINE & RHYTHM STRIP 2023-04-22 00:59:[address] [facility] URINALYSIS 2023-04-22 00:31:[address] [facility] URINE DRUG (IMMUNOASSAY) - COMPREHENSIVE DRUG SCREEN W/O REFLEX 2023-04-22 00:31:[address] [facility] URINALYSIS 2023-04-22 00:31:[address] [facility] URINE DRUG (IMMUNOASSAY) - COMPREHENSIVE DRUG SCREEN W/O REFLEX 2023-04-22 00:31:[address] [facility] URINALYSIS 2023-04-22 00:31:[address] [facility] URINE DRUG (IMMUNOASSAY) - COMPREHENSIVE DRUG SCREEN W/O REFLEX 2023-04-22 00:31:[address] [facility] LIPASE 2023-04-21 23:34:[address] [facility] TEST, SERUM 2023-04-21 23:34:[address] [facility] COMP. METABOLIC PANEL (89318) 2023-04-21 23:34:[address] [facility] CBC WITH DIFF 2023-04-21 23:34:[address] [facility] LIPASE 2023-04-21 23:34:[address] [facility] TEST, SERUM 2023-04-21 23:34:[address] [facility] COMP. METABOLIC PANEL (76409) 2023-04-21 23:34:[address] [facility] CBC WITH DIFF 2023-04-21 23:34:[address] [facility] LIPASE 2023-04-21 23:34:[address] [facility] TEST, SERUM 2023-04-21 23:34:[address] [facility] COMP. METABOLIC PANEL (15647) 2023-04-21 23:34:[address] [facility] CBC WITH DIFF 2023-04-21 23:34:[address] [facility] CONSENT/REFUSAL FOR DIAGNOSI S AND TREATMENT 2023-04-21 21:17:49 Doctor Unassigned, Mosses [facility] CONSENT/REFUSAL FOR DIAGNOSI S AND TREATMENT 2023-04-21 21:17:49 Doctor Unassigned, Mosses [facility] CONSENT/REFUSAL FOR DIAGNOSI S AND TREATMENT 2023-04-21 21:17:49 Doctor Unassigned, [place]es [facility] ASSIGNMENT OF BENEFITS 2023-04-08 23:48:11 Doctor Unassigned, Mosses [facility] CT LUMBAR SPINE WO CONTRAST 2023-04-08 22:48:53 Kate Sierra [facility] URINALYSIS 2023-04-08 22:20:00 Kate Sierra [facility] CONSENT/REFUSAL FOR DIAGNOSI S AND TREATMENT 2023-04-08 21:27:01 Doctor Unassigned, Mosses [facility] COVID-19 (ID NOW RAPID TESTING) 22:00:00 Kassy Gutierrez [facility] CONSENT/REFUSAL FOR DIAGNOSI S AND TREATMENT 2023-03-14 21:53:37 Doctor Unassigned, Mosses [facility] DISCLOSURE AND CONSENT, MEDI HARPREET AND SURGICAL PROCEDURES 2023-03-13 05:01:00 Doctor Unassigned, Mosses [facility] LIPASE 2023-03-12 00:30:00 Stephen [facility] TROPONIN I 2023-03-12 00:30:00 Mitchell [facility] COMP. METABOLIC PANEL (68891) 2023-03-12 00:30:00 Stephen [facility] CBC WITH DIFF 2023-03-12 00:30:00 Mitchell [facility] URINALYSIS 2023-03-12 00:30[facility]00 [facility] 2023-03-11 23:33:23 Doctor Unassigned, Mosses [facility] CONSENT/REFUSAL FOR DIAGNOSI S AND TREATMENT 2023-03-11 22:27:28 Doctor Unassigned, Mosses [facility] TROPONIN I 2023-02-26 19:05:00 Justen Patton [facility] HEPATIC FUNCTION PANEL (8007 6) (ALB,T.PRO,BILI T,BU/BC,ALT,AST,ALK PHOS) 2023-02-26 19:05:00 Erika Pelaez [facility] US ABDOMEN COMPLETE 2023-02-26 17:32:44 Roman Mena [facility] TRANSTHORACIC ECHO (TTE) COMPLETE 02-26 13:45:00 Justen Patton [facility] TROPONIN I 2023-02-26 09:16:00 Justen Patton [facility] TROPONIN I 2023-02-26 01:13:00 Justen Patton [facility] URINALYSIS 2023-02-25 22:26:00 Bairon Meyers [facility] CT STROKE ANGIOGRAM HEAD 2023-02-25 20:59:00 Bairon Meyers [facility] CT STROKE ANGIOGRAM NECK 2023-02-25 20:59:00 Bairon Meyers [facility] CT STROKE HEAD WO CONTRAST 2023-02-25 20:46:55 Bairon Meyers [facility] TROPONIN I 2023-02-25 20:31:00 Bairon Meyers [facility] THYROID STIMULATING HORMONE 2023-02-25 20:31:00 Justen Patton [facility] BASIC METABOLIC PANEL (NA, K , CL, CO2, GLUCOSE, BUN, CREATININE, CA) 2023-02-25 20:31:00 Bairon Meyers [facility] LIPID PANEL (45965)(TOTAL CHOLESTEROL, TRIGLYCERIDES, HDL) 2023-02-25 20:31:00 Justen Patton [facility] CBC WITHOUT DIFF 2023-02-25 20:31:00 Bairon Meyers [facility] PROTHROMBIN TIME / INR 2023-02-25 20:31:00 Bairon Meyers [facility] ACTIVATED PARTIAL THRMPLAS CARLO 1 20:31:00 Bairon Meyers [facility] CT ABDOMEN PELVIS W CONTRAST 2023-02-03 01:48:38 Damion Hamlin [facility] POCT TEST 2023-02-03 00:43:00 Damion Hamlin [facility] URINALYSIS 2023-02-03 00:40:00 Damion Hamlin [facility] LIPASE 2023-02-03 00:39:00 Damion Hamlin [facility] COMP. METABOLIC PANEL (72750) 2023-02-03 00:39:00 Damion Hamlin [facility] [facility] WITH DIFF 2023-02-03 00:39:00 Damion Hamlin [facility] NOTICE OF PRIVACY PRACTICES 2023-02-03 00:17:34 Doctor Unassigned, Mosses [facility] CONSENT/REFUSAL FOR DIAGNOSI S AND TREATMENT 2023-02-03 00:14:58 Doctor Unassigned, Mosses [facility] COVID-19 (ID NOW RAPID TESTING) 18:42:00 Kassy Gutierrez [facility] CONSENT/REFUSAL FOR DIAGNOSI S AND TREATMENT 2022-05-21 18:23:51 Doctor Unassigned, Mosses [facility] COVID-19 (MOLECULAR TESTING NUCLEIC ACID AMPLIFICATION) 2022-04-23 19:40:00 Rasta Anne [facility] LAB ONLY COVID INTERPRETATION 2022-04-23 19:40:00 Rasta Anne [facility] POCT MOLECULAR FLU 2022-04-23 19:35:00 Panda Flanagan [facility] ASSIGNMENT OF BENEFITS 2022-03-13 21:28:15 Doctor Unassigned, Mosses [facility] DERMATOPATHOLOGY TISSUE EXAM 2021-05-25 00:00:00 Javi Mcpherson [facility] Encounters Start Date/Time End Date/Time Encounter Type Admission Type Attending Clinicians Care Facility Care Department Encounter ID Source 2023-05-01 10:38:09 Outpatient R EKTA ESPINOZA [facility] [id number] [facility] 2021-05-29 09:09:24 Emergency [facility] [id number] [facility] 2021-05-28 09:54:12 Outpatient P [facility] [id number] [facility] 2021-05-28 09:46:44 Emergency [facility] [id number] [facility] 2021-05-27 12:42:05 Emergency [facility] [id number] [facility] 2021-05-26 21:03:09 Emergency [facility] [id number] [facility] 2024-07-05 16:00:00 2024-07-05 16:00:00 Outpatient R [facility] [id number] [facility] 2024-07-02 14:30:00 2024-07-02 14:30:00 Outpatient R LIANET MCKEON CASSIE [facility] [id number] [facility] 2024-05-26 00:00:00 2024-06-26 18:17:34 Patient Secure Msg Doctor Unassigned, Mosses Doctor Unassigned, Mosses [facility] [address] 1.114 350.1.13.10 4.2.7.2.686 [id number] [facility] 2024-06-22 08:30:00 2024-06-22 08:30:00 Outpatient R MICHAELDENY [facility] [id number] [facility] 2024-05-18 00:00:00 2024-06-19 18:24:18 Patient Secure Msg Niecy Kang [facility] ([facility]) 1.114 350.1.13.10 4.2.7.2.686 [id number] [facility] 2024-06-18 15:53:23 2024-06-18 23:59:00 Hospital Encounter Sabino Simmons [facility] 1.114 350.1.13.10 4.2.7.2.686 [id number] [facility] 2024-06-18 16:15:00 2024-06-18 16:15:00 Actuarial Trainee Visit 2, Adc Lab Sabino Simmons 2, Adc Lab [facility] PROFESSIO [facility] 1.114 350.1.13.10 4.2.7.2.686 [id number] [facility] 2024-06-18 14:00:00 2024-06-18 15:36:11 Outpatient R SABINO SIMMONS OGECHUKWU [facility] [id number] [facility] 2024-06-18 14:00:00 2024-06-18 15:36:11 Office Visit Sabino Simmons [facility] 1.2.840.114 350.1.13.10 4.2.7.2.686 [id number] [facility] 2024-06-08 15:00:00 2024-06-08 15:00:00 Outpatient R SABINO SIMMONS OGECHUKWU [facility] [id number] [facility] 2024-06-07 15:30:00 2024-06-07 15:30:00 Outpatient R SABINO SIMMONS OGECHUKWU [facility] [id number] [facility] 2024-04-30 00:00:00 2024-06-05 18:25:32 Patient Secure Msg Sabino Simmons [facility] 1.2.840.114 350.1.13.10 4.2.7.2.686 [id number] [facility] 2024-06-04 14:20:00 2024-06-04 14:20:00 Outpatient R [facility] [id number] [facility] 2024-04-28 00:00:00 2024-05-29 18:19:45 Patient Secure Msg Niecy Kang [facility] ([facility]) 1.2.840.114 350.1.13.10 4.2.7.2.686 [id number] [facility] 2024-05-26 00:00:00 2024-05-26 15:45:41 Telephone Niecy Kang [facility] 1.2.840.114 350.1.13.10 4.2.7.2.686 [id number] [facility] 2024-05-24 15:30:00 2024-05-24 15:30:00 Outpatient R ROSA LEMUS [facility] [id number] [facility] 2024-04-26 00:00:00 2024-05-19 15:50:04 Telephone Selina Buckley [facility] ([facility]) 1.2.840.114 350.1.13.10 4.2.7.2.686 [id number] [facility] 2024-05-19 09:30:00 2024-05-19 09:30:00 Outpatient R BERTIN ANTUNEZ STRAHIL [facility] [id number] [facility] 2024-05-15 00:00:00 2024-05-17 12:26:07 RefSabino Monique [facility] 1.2.840.114 350.1.13.10 4.2.7.2.686 [id number] [facility] 2024-05-06 13:00:00 2024-05-06 13:00:00 Outpatient R [facility] [id number] [facility] 2024-05-04 11:00:00 2024-05-04 11:15:00 Actuarial Trainee Visit [facility] Jared Gale [facility] ([facility]) 1.2.840.114 350.1.13.10 4.2.7.2.686 [id number] [facility] 2024-05-04 09:30:00 2024-05-04 10:00:00 Office Visit Niecy Kang Joseph Marc [facility] ([facility]) 1.2840.114 350.1.13.10 4.2.7.2.686 [id number] [facility] 2024-05-04 09:30:00 2024-05-04 09:30:00 Outpatient R JARED GALE [facility] [id number] [facility] 2024-05-03 11:30:00 2024-05-03 11:30:00 Outpatient R ANTOINETTE MCCULLOUGH [facility] [id number] [facility] 2024-04-30 00:00:00 2024-04-30 08:21:15 Telephone Sabino Simmons [facility] N[facility] 1.2840.114 350.1.13.10 4.2.7.2.686 [id number] [facility] 2024-04-29 00:00:00 2024-04-29 14:42:32 Patient Secure Msg Sabino Simmons [facility] N[facility] 1.2840.114 350.1.13.10 4.2.7.2.686 [id number] [facility] 2024-04-27 14:00:00 2024-04-27 14:00:00 Outpatient R LIANET MCKEON CASSIE [facility] [id number] [facility] 2024-04-26 13:00:00 2024-04-26 13:00:00 Outpatient R DIANE PARIKH [facility] [id number] [facility] 2024-03-23 00:00:00 2024-04-24 18:22:17 Patient Secure Msg Doctor Unassigned, Mosses Doctor Unassigned, Mosses [facility] ([facility]) 1.2840.114 350.1.13.10 4.2.7.2.686 [id number] [facility] 2024-04-23 09:00:00 2024-04-23 10:26:52 Outpatient R SABINO SIMMONS OGECHUKIvaniaWood [facility] [id number] [facility] 2024-04-23 09:00:00 2024-04-23 10:26:52 Office Visit Sabino Simmons [facility] PROFESSIO NAL BUILDING 1.2.840.114 350.1.13.10 4.2.7.2.686 [id number] [facility] 2024-04-21 04:51:00 2024-04-21 07:43:00 Emergency X DAMION HAMLIN WAKILI [facility] [id number] [facility] 2024-04-21 04:51:00 2024-04-21 07:43:00 Emergency Damion Hamlin [facility] 1.2.840.114 350.1.13.10 4.2.7.2.686 [id number] [facility] 2024-04-20 13:30:00 2024-04-20 13:30:00 Outpatient R LIANET MCKEON CASSIE [facility] [id number] [facility] 2024-04-19 15:00:00 2024-04-19 16:00:00 Office Visit Rosa Lemus [facility] 1.2.840.114 350.1.13.10 4.2.7.2.686 [id number] [facility] 2024-04-19 15:00:00 2024-04-19 15:00:00 Outpatient R ROSA LEMUS [facility] [id number] [facility] 2024-04-15 18:48:00 2024-04-16 01:39:00 Emergency X KAYDEN MCDUFFIE LUKE [facility] [id number] [facility] 2024-04-15 18:48:00 2024-04-16 01:39:00 Emergency Kayden Mcduffie [facility] 1.2.840.114 350.1.13.10 4.2.7.2.686 [id number] [facility] 2024-04-15 11:00:00 2024-04-15 11:00:00 Outpatient ROSA TREVIZO [facility] [id number] [facility] 2024-04-14 12:00:00 2024-04-14 12:00:00 Outpatient SABINO GUERRERO OGECHUKWU [facility] [id number] [facility] 2024-04-13 14:19:00 2024-04-13 19:50:00 Emergency X NADIYA BELLAMY [facility] [id number] [facility] 2024-04-13 14:19:00 2024-04-13 19:50:00 Emergency Nadiya Bellamy [facility] 1.2.840.114 350.1.13.10 4.2.7.2.686 [id number] [facility] 2024-04-13 00:00:00 2024-04-13 10:19:44 [facility] 1.2.840.114 350.1.13.10 4.2.7.2.686 [id number] [facility] 2024-04-06 14:00:00 2024-04-06 14:00:00 Outpatient ROSA TREVIZO [facility] [id number] [facility] 2024-04-02 14:50:38 2024-04-02 23:59:00 Outpatient R SABINO SIMMONS OGECHUKWU [facility] [id number] [facility] 2024-04-02 14:50:38 2024-04-02 23:59:00 Hospital Encounter Sabino Simmons [facility] 1.2.840.114 350.1.13.10 4.2.7.2.686 [id number] [facility] 2024-04-02 14:50:30 2024-04-02 23:59:00 Hospital Encounter Sabino Simmons [facility] 1.2.840.114 350.1.13.10 4.2.7.2.686 [id number] [facility] 2024-02-19 00:00:00 2024-03-27 18:26:23 Patient Secure Msg Doctor Unassigned, Mosses Doctor Unassigned, Mosses [facility] 1.840.114 350.1.13.10 4.2.7.2.686 [id number] [facility] 2024-02-19 00:00:00 2024-03-27 18:25:40 Patient Secure Msg Doctor Unassigned, Mosses Doctor Unassigned, Mosses [facility] 1.2840.114 350.1.13.10 4.2.7.2.686 [id number] [facility] 2024-03-24 14:45:00 2024-03-24 14:45:00 Outpatient R LEA BARRETO [facility] [id number] [facility] 2024-03-23 00:00:00 2024-03-23 14:05:24 Telephone Violet Zuluaga [facility] 1.2840.114 350.1.13.10 4.2.7.2.686 [id number] [facility] 2024-03-22 09:15:00 2024-03-22 09:58:36 Outpatient R VIOLET ZULUAGA [facility] [id number] [facility] 2024-03-22 09:15:00 2024-03-22 09:58:36 Office Visit Violet Zuluaga [facility] 1.840.114 350.1.13.10 4.2.7.2.686 [id number] [facility] 2024-03-17 15:15:00 2024-03-17 15:15:00 Outpatient R LESLYE COPE LESLYE [facility] [id number] [facility] 2024-03-15 08:15:00 2024-03-15 08:15:00 [facility] [id number] 2024-03-08 13:00:00 2024-03-08 13:00:00 Outpatient R SABINO SIMMONS OGECHUKWU [facility] [id number] [facility] 2024-02-26 00:00:00 2024-03-08 08:12:02 Nurse Triage Tala Elise Teresa D [facility] 1..840.114 350.1.13.10 4.2.7.2.686 [id number] [facility] 2024-02-03 00:00:00 2024-03-06 18:20:22 Patient Secure Msg Doctor Unassigned, Mosses Doctor Unassigned, Mosses [facility] 1.840.114 350.1.13.10 4.2.7.2.686 [id number] [facility] 2024-03-03 15:15:00 2024-03-03 15:15:00 Outpatient R LESLYE COPE CRAIG [facility] [id number] [facility] 2024-02-18 00:00:00 2024-02-20 17:05:35 Telephone Sabino Simmons [facility] 1.2.840.114 350.1.13.10 4.2.7.2.686 [id number] [facility] 2024-02-19 00:00:00 2024-02-19 13:43:37 Telephone Sabino Simmons [facility] 1.2.840.114 350.1.13.10 4.2.7.2.686 [id number] [facility] 2024-02-18 13:00:00 2024-02-18 14:25:29 Outpatient R SABINO SIMMONS SABINO [facility] [id number] [facility] 2024-02-18 13:00:00 2024-02-18 14:25:29 Office Visit Sabino Simmons [facility] 1.2.840.114 350.1.13.10 4.2.7.2.686 [id number] [facility] 2024-02-03 11:30:00 2024-02-03 11:30:00 Outpatient R SABINO SIMMONS SABINO [facility] [id number] [facility] 2024-01-28 00:00:00 2024-01-31 16:00:32 Telephone Sabino Simmons [facility] 1.2.840.114 350.1.13.10 4.2.7.2.686 [id number] [facility] 2024-01-27 16:16:00 2024-01-27 21:50:00 Emergency X TAYLOR MALCOLM [facility] [id number] [facility] 2024-01-27 16:16:00 2024-01-27 21:50:00 Emergency Taylor [facility] 1.2.840.114 350.1.13.10 4.2.7.2.686 [id number] [facility] 2024-01-26 00:00:00 2024-01-26 09:24:31 Telephone Sabino Simmons [facility] 1.2.840.114 350.1.13.10 4.2.7.2.686 [id number] [facility] 2024-01-09 13:30:00 2024-01-09 13:30:00 Outpatient R SABINO SIMMONS OGECHUKWU [facility] [id number] [facility] 2024-01-08 00:00:00 2024-01-08 16:07:59 Case Management Nissa Velasco [facility] 1.2.840.114 350.1.13.10 4.2.7.2.686 [id number] [facility] 2024-01-08 15:15:00 2024-01-08 15:15:00 Outpatient R [facility] [id number] [facility] 2023-12-30 13:45:00 2023-12-30 13:45:00 Outpatient R LESLYE COPE CRAIG [facility] [id number] [facility] 2023-12-24 14:30:00 2023-12-24 14:30:00 Outpatient R SABINO SIMMONS OGECHUKWU [facility] [id number] [facility] 2023-12-16 14:30:00 2023-12-16 15:42:50 Outpatient R LESLYE COPE CRAIG [facility] [id number] [facility] 2023-12-16 14:30:00 2023-12-16 15:42:50 Ancillary Visit Gabrielle Medellin Craig Ankur [facility] 1.2.840.114 350.1.13.10 4.2.7.2.686 [id number] [facility] 2023-12-01 00:00:00 2023-12-01 13:51:45 Patient Outreach SamuelRomina [facility] 1.2.840.114 350.1.13.10 4.2.7.2.686 [id number] [facility] 2023-11-28 00:00:00 2023-11-28 00:00:00 Telephone Sabino iSmmons [facility] 1.2.840.114 350.1.13.10 4.2.7.2.686 [id number] [facility] 2023-11-26 14:15:00 2023-11-26 14:30:00 Actuarial Trainee Visit 2, Adc Lab Sabino Simmons [facility] 1.2.840.114 350.1.13.10 4.2.7.2.686 [id number] [facility] 2023-11-26 13:00:00 2023-11-26 14:10:33 Outpatient R SABINO SIMMONS OGECHUKWU [facility] [id number] [facility] 2023-11-26 13:00:00 2023-11-26 14:10:33 Office Visit Sabino Simmons [facility] 1.2.840.114 350.1.13.10 4.2.7.2.686 [id number] [facility] 2023-11-25 13:45:00 2023-11-25 13:45:00 Outpatient R [facility] [id number] [facility] 2023-11-21 13:00:00 2023-11-21 13:00:00 Outpatient R SABINO SIMMONS OGECHUKWU [facility] [id number] [facility] 2023-11-17 14:00:00 2023-11-17 14:00:00 Outpatient R SABINO SIMMONS OGECHUKWU [facility] [id number] [facility] 2023-11-14 14:00:00 2023-11-14 14:00:00 Outpatient R SABINO SIMMONS OGECHUKWU [facility] [id number] [facility] 2023-11-07 13:30:00 2023-11-07 13:30:00 [facility] [id number] 2023-11-03 13:00:00 2023-11-03 13:00:00 Outpatient R [facility] [id number] [facility] 2023-11-03 09:00:00 2023-11-03 09:00:00 Outpatient JAVI LAGUERRE [facility] [id number] [facility] 2023-10-20 00:00:00 2023-10-20 00:00:00 Patient Secure Msg Doctor Unassigned, Mosses [facility] ..840.114 350.1.13.10 4.2.7.2.686 [id number] [facility] 2023-10-17 13:03:23 2023-10-17 23:59:00 Outpatient REY GUZMANSAY [facility] [id number] [facility] 2023-10-10 15:45:00 2023-10-10 16:00:00 Actuarial Trainee Visit Pcp-Lab Michael Betancur [facility] ..840.114 350.1.13.10 4.2.7.2.686 [id number] [facility] 2023-10-10 14:50:00 2023-10-10 15:47:49 Outpatient R MICHAEL BETANCUR [facility] [id number] [facility] 2023-10-10 14:50:00 2023-10-10 15:47:49 Office Visit Nabila Pedro Lindsay K [facility] 1.2.840.114 350.1.13.10 4.2.7.2.686 [id number] [facility] 2023-10-03 15:08:00 2023-10-03 18:40:00 Emergency X TAYLOR BYNUM [facility] [id number] [facility] 2023-10-03 15:08:00 2023-10-03 18:40:00 Emergency Alice Pena Whitney [facility] 1.2.840.114 350.1.13.10 4.2.7.2.686 [id number] [facility] 2023-09-29 00:00:00 2023-09-29 00:00:00 Telephone Javi Mcpherson [facility] 1.2.840.114 350.1.13.10 4.2.7.2.686 [id number] [facility] 2023-07-03 11:00:00 2023-07-03 11:00:00 Outpatient R [facility] [id number] [facility] 2023-05-23 09:15:00 2023-05-23 09:15:00 Outpatient R ANTOINETTE MCCULLOUGH [facility] [id number] [facility] 2023-05-21 16:15:00 2023-05-21 16:15:00 Outpatient R ANTOINETTE MCCULLOUGH [facility] [id number] [facility] 2023-05-06 18:19:00 2023-05-06 22:17:00 Emergency X ALICE PENA [facility] [id number] [facility] 2023-05-06 18:19:00 2023-05-06 22:17:00 Emergency Alice Pena [facility] 1.2.840.114 350.1.13.10 4.2.7.2.686 [id number] [facility] 2023-05-01 00:00:00 2023-05-01 00:00:00 Transition of Care TamieLolita 1.2.840.114 350.1.13.10 4.2.7.2.686 [id number] [facility] 2023-04-21 16:49:00 2023-04-30 16:15:00 Outpatient X [facility] [id number] [facility] 2023-04-21 16:49:00 2023-04-30 16:15:00 Hospital Encounter Austin Salomon Sara Michelle [facility] 1.2.840.114 350.1.13.10 4.2.7.2.686 [id number] [facility] 2023-04-30 00:00:00 2023-04-30 00:00:00 Telephone [facility] 1.2.840.114 350.1.13.10 4.2.7.2.686 [id number] [facility] 2023-04-29 06:50:00 2023-04-29 09:02:00 Surgery [facility] 1.2.840.114 350.1.13.10 4.2.7.2.686 [id number] [facility] 2023-04-25 13:26:00 2023-04-25 14:05:00 Surgery Marcos Rodriguez [facility] 1.84.114 350.1.13.10 4.2.7.2.686 [id number] [facility] 2023-04-24 15:30:00 2023-04-24 15:30:00 Outpatient R JENNIFER JANI [facility] [id number] [facility] 2023-04-16 10:30:00 2023-04-16 10:30:00 Outpatient R JENNIFER JANI [facility] [id number] [facility] 2023-04-09 00:00:00 2023-04-09 00:00:00 Patient Secure Msg Doctor Unassigned, Mosses [facility] 1.84.114 350.1.13.10 4.2.7.2.686 [id number] [facility] 2023-04-08 16:34:00 2023-04-08 19:33:00 Emergency X ALBINO SIERRABABAK [facility] E[facility] [id number] [facility] 2023-04-08 16:34:00 2023-04-08 19:33:00 Emergency Kate Sierra [facility] 1.840.114 350.1.13.10 4.2.7.2.686 [id number] [facility] 2023-04-07 15:00:00 2023-04-07 15:00:00 Outpatient FARIHA AGUIAR HOWARD [facility] [id number] [facility] 2023-03-20 00:00:00 2023-03-20 00:00:00 Patient Secure Msg Doctor Unassigned, Mosses [facility] [employer] 1.840.114 350.1.13.10 4.2.7.2.686 [id number] [facility] 2023-03-14 16:57:00 2023-03-14 17:50:00 Emergency X KASSY GUTIERREZ [facility] ERT [id number] [facility] 2023-03-14 16:57:00 2023-03-14 17:50:00 Emergency Kassy Gutierrez [facility] 1.2.840.114 350.1.13.10 4.2.7.2.686 [id number] [facility] 2023-03-13 11:00:00 2023-03-13 11:30:00 [facility] 1.0.114 350.1.13.10 4.2.7.2.686 [id number] [facility] 2023-03-13 11:00:00 2023-03-13 11:00:00 Outpatient R DANNY [facility] [id number] [facility] 2023-03-13 00:00:00 2023-03-13 00:00:00 Telephone S[facility] 1.0.114 350.1.13.10 4.2.7.2.686 [id number] [facility] 2023-03-13 00:00:00 2023-03-13 00:00:00 Orders Only Doctor Unassigned, Mosses [facility] 1.2840.114 350.1.13.10 4.2.7.2.686 [id number] [facility] 2023-03-11 17:46:00 2023-03-11 20:59:00 Emergency X STEPHEN ZEYNEP [facility] ERT [id number] [facility] 2023-03-11 17:46:00 2023-03-11 20:59:00 Emergency Zeynep Mitchell [facility] 1.0.114 350.1.13.10 4.2.7.2.686 [id number] [facility] 2023-02-25 14:43:00 2023-02-26 19:25:00 Outpatient X JUSTEN PATTON [facility] [id number] [facility] 2023-02-25 14:43:00 2023-02-26 19:25:00 Emergency Bairon Meyers David [facility] 1.2.840.114 350.1.13.10 4.2.7.2.686 [id number] [facility] 2023-02-02 19:28:00 2023-02-02 23:34:00 Emergency X DAMION HAMLIN [facility] ERT [id number] [facility] 2023-02-02 19:28:00 2023-02-02 23:34:00 Emergency Damion Hamlin [facility] 1..840.114 350.1.13.10 4.2.7.2.686 [id number] [facility] 2022-08-27 11:00:00 2022-08-27 11:00:00 Outpatient JAVI LAGUERRE [facility] [id number] [facility] 2022-06-18 13:00:00 2022-06-18 13:00:00 Outpatient ZEV CH [facility] [id number] [facility] 2022-05-21 13:38:00 2022-05-21 14:10:00 Emergency X KASSY GUTIERREZ [facility] ERT [id number] [facility] 2022-05-21 13:38:00 2022-05-21 14:10:00 Emergency Kassy Gutierrez [facility] 1.2.840.114 350.1.13.10 4.2.7.2.686 [id number] [facility] 2022-04-24 00:00:00 2022-04-24 00:00:00 Patient Secure Msg Dede-Baki, Rasta [facility] 1..114 350.1.13.10 4.2.7.2.686 [id number] [facility] 2022-04-23 15:30:00 2022-04-23 16:00:00 Office Visit Dayana Rasta Flanagan Panda [facility] 1..114 350.1.13.10 4.2.7.2.686 [id number] [facility] 2022-04-23 15:30:00 2022-04-23 15:30:00 Outpatient PANDA ECHEVARRIA [facility] [id number] [facility] [facility] 2022-04-01 00:00:00 2022-04-01 00:00:00 Telephone Javi Mcpherson [facility] 1.114 350.1.13.10 4.2.7.2.686 [id number] [facility] 2022-03-13 16:15:00 2022-03-13 16:30:00 Laboratory Only Only, Ang Db Hiral Brown [facility] MATTHEW?[facility] 1.84.114 350.1.13.10 4.2.7.2.686 [id number] [facility] 2022-03-13 16:15:00 2022-03-13 16:15:00 Outpatient AUSTIN NINA [facility] [id number] [facility] 2022-03-13 00:00:00 2022-03-13 00:00:00 Orders Only Doctor Unassigned, [place] [facility] 1..114 350.1.13.10 4.2.7.2.686 [id number] [facility] 2022-03-04 10:15:00 2022-03-04 10:15:00 Outpatient JAVI LAGUERRE [facility] [id number] [facility] 2022-01-08 10:30:00 2022-01-08 10:30:00 Outpatient R JAVI MCPHERSON [facility] [id number] [facility] 2021-12-05 19:26:00 2021-12-05 20:13:00 Emergency X SAYDA ZAFAR [facility] ERT [id number] [facility] 2021-12-05 19:26:00 2021-12-05 20:13:00 Emergency Sayda Zafar [facility] 1.840.114 350.1.13.10 4.2.7.2.686 [id number] [facility] 2021-12-05 19:26:00 2021-12-05 20:13:00 Emergency X SAYDA ZAFAR [facility] ERT [id number] [facility] 2021-09-25 15:10:00 2021-09-25 15:10:00 Outpatient R UNKNOWN, ATTENDING [facility] [id number] [facility] 2021-09-25 15:10:00 2021-09-25 15:10:00 Outpatient R UNKNOWN, ATTENDING [facility] [id number] [facility] 2021-08-22 00:00:00 2021-08-22 00:00:00 Patient Secure Msg Randy Chauhan [facility] 1..840.114 350.1.13.10 4.2.7.2.686 [id number] [facility] 2021-08-22 00:00:00 2021-08-22 00:00:00 Patient Secure Msg Doctor Unassigned, Mosses [facility] 1..840.114 350.1.13.10 4.2.7.2.686 [id number] [facility] 2021-08-21 15:13:16 2021-08-21 23:59:00 Outpatient BRANDON CAREY [facility] [id number] [facility] 2021-08-21 15:13:16 2021-08-21 23:59:00 Hospital Encounter Brandon Rivera [facility] 1..840.114 350.1.13.10 4.2.7.2.686 [id number] [facility] 2021-08-21 15:13:16 2021-08-21 23:59:00 Outpatient BRANDON CAERY [facility] [id number] [facility] 2021-08-21 15:30:00 2021-08-21 15:45:00 Actuarial Trainee Visit Pcp-Brandon Gonzáles [facility] 1..840.114 350.1.13.10 4.2.7.2.686 [id number] [facility] 2021-08-21 14:20:00 2021-08-21 15:05:01 Outpatient Tasha VAZQUEZ, ATTENDING [facility] [id number] [facility] 2021-08-21 14:20:00 2021-08-21 15:05:01 Office Visit Randy Chauhan, Attending Nicole Zucker [facility] 1..840.114 350.1.13.10 4.2.7.2.686 [id number] [facility] 2021-08-21 14:20:00 2021-08-21 15:05:01 Outpatient BRANDON CAREY [facility] [id number] [facility] 2021-08-15 00:00:00 2021-08-15 00:00:00 Telephone Sherry Simon [facility] 1..840.114 350.1.13.10 4.2.7.2.686 [id number] [facility] 2021-08-06 00:00:00 2021-08-06 00:00:00 [facility].114 350.1.13.10 4.2.7.2.686 [id number] [facility] 2021-07-30 10:30:00 2021-07-30 10:30:00 Outpatient JAVI LAGUERRE [facility] [id number] [facility] 2021-07-26 00:00:00 2021-07-26 00:00:00 Randy Sotelo [facility] 1..840.114 350.1.13.10 4.2.7.2.686 [id number] [facility] 2021-07-25 10:40:00 2021-07-25 10:40:00 Outpatient SCARLET VELASQUEZ [facility] [id number] [facility] 2021-06-26 16:00:00 2021-06-26 16:00:00 Outpatient R [facility] [id number] [facility] 2021-06-26 16:00:00 2021-06-26 16:00:00 Outpatient R [facility] [id number] [facility] 2021-06-26 14:20:00 2021-06-26 14:20:00 Outpatient ELENA WILKS [facility] [id number] [facility] 2021-06-19 10:00:00 2021-06-19 10:00:00 Outpatient SELINA CASTANO [facility] [id number] [facility] 2021-06-19 10:00:00 2021-06-19 10:00:00 Outpatient SELINA CASTANO [facility] [id number] [facility] 2021-06-12 14:15:00 2021-06-12 14:15:00 Outpatient R CASSIUS ZULUAGA [facility] [id number] [facility] 2021-06-11 11:00:00 2021-06-11 11:00:00 Outpatient BRANDON CAREY [facility] [id number] [facility] 2021-06-11 00:00:00 2021-06-11 00:00:00 Outpatient BRANDON CAREY [facility] [id number] [facility] 2021-06-11 00:00:00 2021-06-11 00:00:00 Outpatient BRANDON CAREY [facility] [id number] [facility] 2021-06-11 00:00:00 2021-06-11 00:00:00 Outpatient BRANDON CAREY [facility] [id number] [facility] 2021-06-08 09:30:00 2021-06-08 14:17:29 Outpatient CAROLYN MONSALVE [facility] [id number] [facility] 2021-06-08 09:41:59 2021-06-08 09:56:59 Nurse Visit Visit, [facility] Dermatology Nurse Carolyn Herrera [facility] .840.114 350.1.13.10 4.2.7.2.686 [id number] [facility] 2021-06-08 09:30:00 2021-06-08 09:30:00 Outpatient CAROLYN MONSALVE [facility] [id number] [facility] 2021-06-08 09:30:00 2021-06-08 09:30:00 Outpatient CAROLYN MONSALVE [facility] [id number] [facility] 2021-06-08 00:00:00 2021-06-08 00:00:00 Telephone Javi Mcpherson [facility] ..114 350.1.13.10 4.2.7.2.686 [id number] [facility] 2021-06-06 10:44:36 2021-06-06 11:41:03 Office Visit Randy Chauhan [place] [facility] 1.840.114 350.1.13.10 4.2.7.2.686 [id number] [facility] 2021-06-06 10:40:00 2021-06-06 11:41:03 Outpatient R EVLI MAYA [facility] [id number] [facility] 2021-06-06 00:00:00 2021-06-06 00:00:00 Orders Only Doctor Unassigned, Mosses [facility] 1.2840.114 350.1.13.10 4.2.7.2.686 [id number] [facility] 2021-05-31 00:00:00 2021-05-31 00:00:00 Patient Secure Msg Doctor Unassigned, Mosses [facility] 1.2840.114 350.1.13.10 4.2.7.2.686 [id number] [facility] 2021-05-28 00:00:00 2021-05-28 00:00:00 Patient Secure Msg Randy Chauhan [facility] 1.2.840.114 350.1.13.10 4.2.7.2.686 [id number] [facility] 2021-05-25 14:56:53 2021-05-25 23:59:00 Hospital Encounter Radiology [facility] 1.2.840.114 350.1.13.10 4.2.7.2.686 [id number] [facility] 2021-05-25 14:51:00 2021-05-25 15:06:00 Actuarial Trainee Visit Pcp-Lab Brandon Rivera [facility] 1.2.840.114 350.1.13.10 4.2.7.2.686 [id number] [facility] 2021-05-25 14:56:53 2021-05-25 14:56:53 Outpatient R RADIOLOGY [facility] [id number] [facility] 2021-05-25 14:10:00 2021-05-25 14:51:51 Outpatient R UNKNOWN, ATTENDING [facility] [id number] [facility] 2021-05-25 14:10:00 2021-05-25 14:51:51 Outpatient R BRANDON RIVERA [facility] [id number] [facility] 2021-05-25 13:34:56 2021-05-25 14:51:51 Office Visit Randy Chauhan, Attending [facility] 1..114 350.1.13.10 4.2.7.2.686 [id number] [facility] 2021-05-25 13:34:56 2021-05-25 14:51:51 Office Visit Randy Chauhan, Attending [facility] 1..114 350.1.13.10 4.2.7.2.686 [id number] [facility] 2021-05-25 09:00:00 2021-05-25 11:35:22 Outpatient R JAVI MCPHERSON [facility] [id number] [facility] 2021-05-25 09:00:00 2021-05-25 11:35:22 Outpatient R JAVI MCPHERSON [facility] [id number] [facility] 2021-05-25 09:00:00 2021-05-25 11:35:22 Office Visit Javi Mcpherson [facility] 1.114 350.1.13.10 4.2.7.2.686 [id number] [facility] 2021-05-25 08:38:11 2021-05-25 11:35:22 Office Visit Javi Mcpherson [facility] 1..114 350.1.13.10 4.2.7.2.686 [id number] [facility] 2021-05-25 08:38:11 2021-05-25 11:35:22 Office Visit Javi Mcpherson [facility] 1..114 350.1.13.10 4.2.7.2.686 [id number] [facility] 2021-05-25 09:00:00 2021-05-25 09:00:00 Outpatient R JAVI MCPHERSON [facility] [id number] [facility] 2021-05-23 10:40:00 2021-05-23 10:40:00 Outpatient R UNKNOWN, ATTENDING [facility] [id number] [facility] 2021-05-23 10:40:00 2021-05-23 10:40:00 Outpatient R UNKNOWN, ATTENDING [facility] [id number] [facility] 2021-05-19 17:42:00 2021-05-19 20:16:00 Emergency Lauri [facility] 1.840.114 350.1.13.10 4.2.7.2.686 [id number] [facility] 2021-05-19 17:42:00 2021-05-19 20:16:00 Emergency X LAURI CURRY [facility] ERT [id number] [facility] 2021-05-18 13:10:00 2021-05-18 13:10:00 Outpatient R UNKNOWN, ATTENDING [facility] [id number] [facility] 2021-05-16 13:45:00 2021-05-16 13:45:00 Outpatient R SIENNA RUFF [facility] [id number] [facility] 2021-04-23 14:52:31 2021-04-23 15:49:11 Routine Visit Selina Buckley [facility] 1.840.114 350.1.13.10 4.2.7.2.686 [id number] [facility] 2021-04-23 11:19:34 2021-04-23 15:47:11 Office Visit Javi Mcpherson Rodrigo [facility] 1..114 350.1.13.10 4.2.7.2.686 [id number] [facility] 2021-04-23 11:45:00 2021-04-23 11:45:00 Outpatient R JAVI MCPHERSON [facility] [id number] [facility] 2021-04-06 14:35:35 2021-04-06 15:03:54 Nurse Visit Visit/Fp, [facility] 1.114 350.1.13.10 4.2.7.2.686 [id number] [facility] 2021-04-06 14:30:00 2021-04-06 15:03:54 [facility] [id number] 2021-04-06 14:30:00 2021-04-06 14:30:00 Outpatient R [facility] [id number] [facility] 2021-03-27 15:30:00 2021-03-30 14:00:00 Inpatient P ABRAM LYNNE [facility] [id number] [facility] 2021-03-27 15:30:00 2021-03-30 14:00:00 Hospital Encounter Abram Lynne [facility] 1.20.114 350.1.13.10 4.2.7.2.686 [id number] [facility] 2021-03-27 19:00:00 2021-03-27 21:05:00 Surgery Herminio Isaac [facility] 1.2840.114 350.1.13.10 4.2.7.2.686 [id number] [facility] 2021-03-27 15:30:00 2021-03-27 15:30:00 Outpatient P ABRAM LYNNE [facility] [id number] [facility] 2021-03-27 14:09:50 2021-03-27 15:22:03 Routine Visit [facility] 1..114 350.1.13.10 4.2.7.2.686 [id number] [facility] 2021-03-27 14:15:00 2021-03-27 14:15:00 Outpatient R MARCIO [facility] [id number] [facility] 2021-03-27 00:00:00 2021-03-27 00:00:00 Orders Only Doctor Unassigned, Mosses [facility] 1.114 350.1.13.10 4.2.7.2.686 [id number] [facility] 2021-03-21 14:30:00 2021-03-21 14:30:00 Outpatient R MARCIO [facility] [id number] [facility] 2021-03-16 00:00:00 2021-03-16 00:00:00 Patient Secure Msg [facility] 1..114 350.1.13.10 4.2.7.2.686 [id number] [facility] 2021-03-15 00:00:00 2021-03-15 00:00:00 Cristina Wallace [facility] 1..114 350.1.13.10 4.2.7.2.686 [id number] [facility] 2021-03-12 15:12:14 2021-03-12 16:00:23 Routine Visit [facility] 1..114 350.1.13.10 4.2.7.2.686 [id number] [facility] 2021-03-12 15:45:00 2021-03-12 15:45:00 Outpatient R SELINA BUCKLEY [facility] [id number] [facility] 2021-03-03 00:00:00 2021-03-03 00:00:00 Patient Secure Msg Doctor Unassigned, Mosses [facility] 1.2.840.114 350.1.13.10 4.2.7.2.686 [id number] [facility] 2021-03-01 00:00:00 2021-03-01 00:00:00 [facility] 1.2840.114 350.1.13.10 4.2.7.2.686 [id number] [facility] 2021-02-28 00:00:00 2021-02-28 00:00:00 Nurse Triage Kala Roy [facility] 1.840.114 350.1.13.10 4.2.7.2.686 [id number] [facility] 2021-02-27 00:00:00 2021-02-27 00:00:00 [facility] 1.2.840.114 350.1.13.10 4.2.7.2.686 [id number] [facility] 2021-02-27 00:00:00 2021-02-27 00:00:00 [facility] 1.2840.114 350.1.13.10 4.2.7.2.686 [id number] [facility] 2021-02-26 15:30:00 2021-02-26 15:49:52 Outpatient R SELINA BUCKLEY [facility] [id number] [facility] 2021-02-26 15:22:26 2021-02-26 15:49:52 Routine Visit Marcio [facility] 1..114 350.1.13.10 4.2.7.2.686 [id number] [facility] 2021-02-26 15:30:00 2021-02-26 15:30:00 Outpatient R MARCIO [facility] [id number] [facility] 2021-02-26 15:30:00 2021-02-26 15:30:00 Outpatient R MARCIO, [facility] [id number] [facility] 2021-02-20 14:00:00 2021-02-20 14:00:00 [facility] [id number] [facility] 2021-02-20 14:00:00 2021-02-20 14:00:00 [facility] [id number] [facility] 2021-02-20 00:00:00 2021-02-20 00:00:00 Telephone Cristina Parra [facility] 1.114 350.1.13.10 4.2.7.2.686 [id number] [facility] 2021-02-15 14:00:00 2021-02-15 14:00:00 Outpatient DASH SPRINGER [facility] [id number] [facility] 2021-02-15 13:29:53 2021-02-15 13:44:53 Office Visit Dash [facility]..114 350.1.13.10 4.2.7.2.686 [id number] [facility] 2021-02-14 13:51:00 2021-02-14 21:15:00 Hospital Encounter Ondina Palacio [facility] 1.840.114 350.1.13.10 4.2.7.2.686 [id number] [facility] 2021-02-14 13:51:00 2021-02-14 21:15:00 Outpatient P ADONDINA COATES [facility] [id number] [facility] 2021-02-14 13:51:00 2021-02-14 21:15:00 Outpatient P ADUMONDINA [facility] [id number] [facility] 2021-02-14 00:00:00 2021-02-14 00:00:00 Orders Only Doctor Unassigned, Mosses [facility] 1..114 350.1.13.10 4.2.7.2.686 [id number] [facility] 2021-02-07 00:00:00 2021-02-07 00:00:00 Refill Cristina Parra [facility] 1..114 350.1.13.10 4.2.7.2.686 [id number] [facility] 2021-02-06 07:45:43 2021-02-06 08:00:43 Actuarial Trainee Visit Lab, [facility] Mili Villegas [facility] [employer] [employer] MATERNAL & CHILD [facility]ALTH [facility] 1..114 350.1.13.10 4.2.7.2.686 [id number] [facility] 2021-02-06 08:00:00 2021-02-06 08:00:00 Outpatient MILI COLLAZO [facility] [id number] [facility] 2021-02-06 08:00:00 2021-02-06 07:58:12 Outpatient MILI COLLAZO [facility] [id number] [facility] 2021-02-05 13:00:54 2021-02-05 15:47:28 Routine Visit Cristina Parra [facility] 1..114 350.1.13.10 4.2.7.2.686 [id number] [facility] 2021-02-05 13:00:00 2021-02-05 13:00:00 Outpatient R CRISTINA PARRA [facility] [id number] [facility] 2021-02-02 00:00:00 2021-02-02 00:00:00 Telephone Fidel [facility] 1..840.114 350.1.13.10 4.2.7.2.686 [id number] [facility] 2021-01-31 11:00:00 2021-01-31 11:00:00 Outpatient R CRISTNIA PARRA [facility] [id number] [facility] 2021-01-25 00:00:00 2021-01-25 00:00:00 [facility] 1..840.114 350.1.13.10 4.2.7.2.686 [id number] [facility] 2021-01-24 08:26:00 2021-01-24 08:33:08 Actuarial Trainee Visit Lab, [facility] Mili Villegas [facility] [employer] [employer]NAL [facility]ILD HE[facility] 1..840.114 350.1.13.10 4.2.7.2.686 [id number] [facility] 2021-01-24 08:30:00 2021-01-24 08:30:00 Outpatient MILI COLLAZO [facility] [id number] [facility] 2021-01-19 14:00:00 2021-01-19 14:00:00 Outpatient R CRISTINA PARRA [facility] [id number] [facility] 2021-01-17 15:24:33 2021-01-17 16:07:47 Routine Visit Kroon, [facility] 1.114 350.1.13.10 4.2.7.2.686 [id number] [facility] 2021-01-17 15:00:00 2021-01-17 15:00:00 Outpatient R JOSEHIENMARLYNCRISTINA [facility] [id number] [facility] 2021-01-17 00:00:00 2021-01-17 00:00:00 Orders Only Doctor Unassigned, Mosses [facility] 1..114 350.1.13.10 4.2.7.2.686 [id number] [facility] 2020-12-29 14:22:20 2020-12-29 14:54:37 Routine Visit Franny Bustillo [facility] 1.114 350.1.13.10 4.2.7.2.686 [id number] [facility] 2020-12-29 13:45:00 2020-12-29 13:45:00 Outpatient SELINA CASTANO [facility] [id number] [facility] 2020-12-11 14:34:29 2020-12-11 15:29:17 Actuarial Trainee Visit Ultrasound, Herminio Suarez [facility] [employer] [facility] 1..114 350.1.13.10 4.2.7.2.686 [id number] [facility] 2020-12-11 14:45:00 2020-12-11 14:45:00 Outpatient P [facility] [id number] [facility] 2020-12-04 00:00:00 2020-12-04 00:00:00 Telephone Fidel [facility] 1.114 350.1.13.10 4.2.7.2.686 [id number] [facility] 2020-12-03 00:00:00 2020-12-03 00:00:00 Refill Josehien [facility] 1.0.114 350.1.13.10 4.2.7.2.686 [id number] [facility] 2020-12-01 15:38:20 2020-12-01 16:07:09 Routine Visit JoseCritsina [facility] 1.0.114 350.1.13.10 4.2.7.2.686 [id number] [facility] 2020-12-01 15:45:00 2020-12-01 15:45:00 Outpatient SELINA CASTANO [facility] [id number] [facility] 2020-11-14 00:00:00 2020-11-14 00:00:00 Telephone Darline Cheng [facility] 1.0.114 350.1.13.10 4.2.7.2.686 [id number] [facility] 2020-11-13 10:07:51 2020-11-13 11:22:51 Actuarial Trainee Visit 1, [facility] Us Room Conrado Mcneil [facility] 1.0.114 350.1.13.10 4.2.7.2.686 [id number] [facility] 2020-11-13 10:00:00 2020-11-13 10:00:00 Outpatient P [facility] [id number] [facility] 2020-11-08 00:00:00 2020-11-08 00:00:00 Patient Secure Javi Little [facility] 1.840.114 350.1.13.10 4.2.7.2.686 [id number] [facility] 2020-11-07 18:56:00 2020-11-07 21:35:00 Emergency Damion Hamlin [facility] 1.2840.114 350.1.13.10 4.2.7.2.686 [id number] [facility] 2020-11-03 16:15:21 2020-11-03 16:30:21 Actuarial Trainee Visit [facility] 1.20.114 350.1.13.10 4.2.7.2.686 [id number] [facility] 2020-11-03 15:38:43 2020-11-03 16:07:59 [facility] 1.2.114 350.1.13.10 4.2.7.2.686 [id number] [facility] 2020-11-03 15:45:00 2020-11-03 15:45:00 Outpatient Tasha FIDEL [facility] [id number] [facility] 2020-10-30 08:15:00 2020-10-30 08:15:00 Outpatient Tasha FIDEL CRISTINA [facility] [id number] [facility] 2020-10-18 15:48:54 2020-10-18 16:03:54 Telemedici ne Visit Darline Cheng Joseph W [facility] 1.84.114 350.1.13.10 4.2.7.2.686 [id number] [facility] 2020-10-18 09:00:00 2020-10-18 09:00:00 Outpatient JARED MCMAHAN [facility] [id number] [facility] 2020-10-18 00:00:00 2020-10-18 00:00:00 Orders Only Doctor Unassigned, [place] 1.2.840.114 350.1.13.10 4.2.7.2.686 [id number] [facility] 2020-10-17 10:36:54 2020-10-17 11:50:40 Office Visit Javi Mcpherson [facility] 1.840.114 350.1.13.10 4.2.7.2.686 [id number] [facility] 2020-10-17 10:00:00 2020-10-17 10:00:00 Outpatient R JAVI MCPHERSON [facility] [id number] [facility] 2020-10-12 00:00:00 2020-10-12 00:00:00 Patient Outreach Maximus Villavicencio [facility] 1.0.114 350.1.13.10 4.2.7.2.686 [id number] [facility] 2020-10-02 10:34:30 2020-10-02 11:14:04 Routine Visit Fidel Cristina [facility] 1..114 350.1.13.10 4.2.7.2.686 [id number] [facility] 2020-10-02 10:15:00 2020-10-02 10:15:00 Outpatient R MARLYN PARRARIELLE [facility] [id number] [facility] 2020-09-22 13:00:00 2020-09-22 13:00:00 Outpatient R [facility] [id number] [facility] 2020-09-22 07:55:13 2020-09-22 08:25:13 Telemedici ne Visit Fellow, Tyler [facility] Abram Lynne [facility] 1.840.114 350.1.13.10 4.2.7.2.686 [id number] [facility] 2020-09-21 00:00:00 2020-09-21 00:00:00 Telephone Fellow, [facility] 1.84.114 350.1.13.10 4.2.7.2.686 [id number] [facility] 2020-09-20 00:00:00 2020-09-20 00:00:00 Abstract Fidel [facility] 1.20.114 350.1.13.10 4.2.7.2.686 [id number] [facility] 2020-09-18 00:00:00 2020-09-18 00:00:00 Abstract Fidel [facility] 1..114 350.1.13.10 4.2.7.2.686 [id number] [facility] 2020-09-15 15:17:42 2020-09-15 15:47:42 Actuarial Trainee Visit Ultrasound, Nette Mattson [facility] [facility] 1.840.114 350.1.13.10 4.2.7.2.686 [id number] [facility] 2020-09-15 15:30:00 2020-09-15 15:30:00 Outpatient P NETTE CADET [facility] [id number] [facility] 2020-09-11 09:30:00 2020-09-11 09:30:00 Outpatient P [facility] [id number] [facility] 2020-09-04 13:30:00 2020-09-04 13:30:00 Outpatient R CRISTINA PARRA [facility] [id number] [facility] 2020-09-04 11:08:18 2020-09-04 11:32:19 Office Visit Javi Mcpherson [facility] 1.2.840.114 350.1.13.10 4.2.7.2.686 [id number] [facility] 2020-08-30 00:00:00 2020-08-30 00:00:00 Telephone Javi Mcpherson [facility] 1.2840.114 350.1.13.10 4.2.7.2.686 [id number] [facility] 2020-08-28 14:46:00 2020-08-28 19:07:00 Emergency Juanjose Ross [facility] 1.2840.114 350.1.13.10 4.2.7.2.686 [id number] [facility] 2020-08-28 00:00:00 2020-08-28 00:00:00 Orders Only Doctor Unassigned, [place]es [facility] 1.2840.114 350.1.13.10 4.2.7.2.686 [id number] [facility] 2020-08-23 13:30:00 2020-08-23 13:30:00 Outpatient R JAVI MCPHERSON [facility] [id number] [facility] 2020-08-23 12:51:04 2020-08-23 13:06:04 Actuarial Trainee Visit [facility] Javi Mcpherson [facility] 1.2840.114 350.1.13.10 4.2.7.2.686 [id number] [facility] 2020-07-31 12:45:19 2020-07-31 13:00:19 Actuarial Trainee Visit [facility] Matthew El [facility] 1.2840.114 350.1.13.10 4.2.7.2.686 [id number] [facility] 2020-07-31 12:31:15 2020-07-31 12:44:24 [facility] 1.2.840.114 350.1.13.10 4.2.7.2.686 [id number] [facility] 2020-07-31 10:00:00 2020-07-31 10:00:00 Outpatient MATTHEW LARA [facility] [id number] [facility] 2020-07-19 00:00:00 2020-07-19 00:00:00 Telephone Glenna Jeong [facility] 1.2.840.114 350.1.13.10 4.2.7.2.686 [id number] [facility] 2020-07-18 00:00:00 2020-07-18 00:00:00 [facility] 1.2.840.114 350.1.13.10 4.2.7.2.686 [id number] [id number] 2020-07-18 00:00:00 2020-07-18 00:00:00 [facility] 1.2.840.114 350.1.13.10 4.2.7.2.686 [id number] [id number] [facility] 2020-07-17 09:57:38 2020-07-17 10:40:11 Nurse Visit Visit, [facility] Dermatology Nurse Sienna [facility] 1.2.840.114 350.1.13.10 4.2.7.2.686 [id number] [facility] 2020-07-17 10:00:00 2020-07-17 10:00:00 Outpatient MATTHEW LARA [facility] [id number] [facility] 2020-07-13 12:45:00 2020-07-13 12:45:00 Outpatient JAVI LAGUERRE [facility] [id number] [facility] 2020-07-13 11:27:26 2020-07-13 12:41:40 Actuarial Trainee Visit [facility] Javi Mcpherson [facility] 1.2.840.114 350.1.13.10 4.2.7.2.686 [id number] [facility] 2020-07-05 11:10:53 2020-07-05 11:25:53 Actuarial Trainee Visit [facility] Javi Mcpherson [facility] 1.2.840.114 350.1.13.10 4.2.7.2.686 [id number] [facility] 2020-07-05 09:26:49 2020-07-05 11:10:38 [facility] 1.2.840.114 350.1.13.10 4.2.7.2.686 [id number] [id number] 2020-07-05 09:26:49 2020-07-05 11:10:38 Office Visit Gwendolyn Kay[facility] 1.2.840.114 350.1.13.10 4.2.7.2.686 [id number] [facility] 2020-07-05 09:30:00 2020-07-05 09:30:00 Outpatient Tasha MCPHERSON JAVI [facility] [id number] [facility] 2020-07-05 00:00:00 2020-07-05 00:00:00 Orders Only Doctor Unassigned, Mosses [facility] 1.2.840.114 350.1.13.10 4.2.7.2.686 [id number] [facility] 2020-06-28 10:00:00 2020-06-28 10:00:00 Outpatient CAROLYN MONSALVE [facility] [id number] [facility] 2020-06-06 20:09:00 2020-06-06 20:40:00 Emergency Alice Pena [facility] 1.2.840.114 350.1.13.10 4.2.7.2.686 [id number] [facility] 2020-06-06 19:55:00 2020-06-06 19:55:00 Emergency X [facility] [id number] [facility] 2020-06-06 00:00:00 2020-06-06 00:00:00 Orders Only Doctor Unassigned, Mosses [facility] 1.2.840.114 350.1.13.10 4.2.7.2.686 [id number] [facility] 2019-06-17 14:42:45 2019-06-17 16:33:00 Emergency X LAURI CURRY [facility] ERT [id number] [facility] Results Test Description Test Time Test Comments Results Result Co mments Source [facility] [id number] 11:47:33EXAM: CT ABDOMEN PELVIS WO CONTRAST HISTORY: 44 years-old Female; Provided indication: Abdominal pain, acute,nonlocalized. TECHNIQUE: Contiguous axial imaging from the level of the lung basesthrough the proximal thighs was performed without the intravenousadministration of contrast. Coronal and sagi ttal reconstructions wereobtained. COMPARISON: CT abdomen pelvis 04/13/2024. Ultrasound pelvis 04/15/2024 FINDINGS: LOWER THORAX: Stable trace pleural thickening. LIVER: Stable hepatomegaly measuring 18.3 cm in the craniocaudal dimension.Hepatic steatosis. No focal hepatic lesion is seen within the li mitationsof a non-contrasted examination. GALLBLADDER AND BILIARY TREE: The gallbladder is collapsed. No radiopaquegallstones are seen. No intra or extrahepatic biliary ductal dilation isvisualized. SPLEEN: The spleen is normal in size. PANCREAS: No ductal dilation or masses are visualized. Diffuse fattyatrophy is noted. ADRENAL GLANDS: No adrenal masses are seen. KIDNEYS: Redemonstrated left exophytic renal mass. No hydronephrosis,stones, or contour deforming solid masses are visualized. PELVIS/BLADDER: Redemonstrated 5 cm right ovarian cyst has slightlydecreased in size from 5.6 cm comparedto the prior. The bladder isadequately distended and appears unremarkable. GI TRACT: No dilation orbowel wall thickening is seen. The appendixappears unremarkable. PERITONEUM AND RETROPERITONEUM: Nointra-abdominal free air or fluidcollection is visualized. LYMPH NODES: No lymphadenopathy. VESSELS: The vessels appear unremarkable within limitations of anon-contrasted examination. BONES AND SOFT T ISSUES: No suspicious lytic or sclerotic bony lesions arepresent. Moderate degenerative changes of the lumbar spine with loss ofdisc space and grade 1 anterolisthesis of L5 over S1, favored to bedegenerative.[facility] [id number] 01:54:00* Test Item Value Reference Range Interpretation Comme nts POCT PREG (test code = 1605) Negative On board controls acceptable with C Line (test code = 3574) Yes POCT PREG LOT # (test code = 3575) [id number] POCT PREG TEST DATE ( test code = 3576) 05/06/2025 Lab Interpretation (test cod e = 58977-2) Normal [facility] ABDOMEN PELVIS W [id number] 22:55:02EXAM: CT ABDOMEN/PELVIS WITH CONTRAST HISTORY: ?Bowel [...] S1. Degenerative changes of the thoracicand lumbosacral spine.[facility] WITH DIFF 2024-04-13 21:22:43* Test Item [...] 31.8 g/dL 31.6-35.1 RDW-SD (test code = 10654-7) 42.3 fL 39.0-49.9 RDW-CV (test code = 788-0) 13.5 % 12.0-15.5 PLT (test code = 777-3) 265 166-358 MPV (test code = 35488-8) 9.9 fL 9.5-12.9 IPF % (test code = 8334439920) 1.5 % 1.3-7.7 Platelet count measured by fluorescence method. NRBC/100 WBC (test code = 2905965042) 0.0 0.0-10.0 NRBC x10^3 (test code = 8716511757) See_Comment [Automated BiteHuntera ge] The system which generated this result transmitted reference range: 10*3/?L. The reference range was not used to interpret this result as normal/abnormal. GRAN MAT (NEUT) % (test code = 770-8) 61.9 % IMM GRAN % (test code = 3417300828) 0.40 % LYMPH % (test code = 736-9) 30.7 % MONO % (test code = 5905-5) 5.5 % EOS % (test code = 713-8) 1.1 % BASO % (test code = 706-2) 0.4 % GRAN MAT x10^3(ANC) (test code = 5650932387) 7.05 10*3/uL 1.88-7.09 IMM GRAN x10^3 (test code = 7671539857) 0.05 10*3/uL 0.00-0.06 LYMPH x10^3 (test code = 731-0) 3.49 10*3/uL 1.32-3.29 H MONO x10^3 (test code = 742-7) 0.62 10*3/uL 0.33-0.92 EOS x10^3 (test code = 711-2) 0.12 10*3/uL 0.03-0.39 BASO x10^3 (test code = 704-7) 0.04 10*3/uL 0.01-0.07 Lab Interpretation (test code = 22282-8) Abnormal [facility] (27801)2024-04-13 21:16:35* Test Item Value Reference Range Interpretation Comme nts NA (test code = 6880948956) 136 mmol/L 135-145 K (test code = 1294040242) 3.8 mmol/L 3.5-5.0 CL (test code = 0859131604) 99 mmol/L 98-108 CO2 TOTAL (test code = 3521401266) 24 mmol/L 23-31 AGAP (test code = 2779517039) 13 2-16 BUN (test code = 6369811490) 20 mg/dL 7-23 GLUCOSE (test code = 4810842140) 92 mg/dL 70-110 CREATININE (test code = 2160-0) 0.58 mg/dL 0.50-1.04 TOTAL BILI (test code = 6189701800) 1.0 mg/dL 0.1-1.1 CALCIUM (test code = 2707738149) 8.7 mg/dL 8.6-10.6 T PROTEIN (test code = 0427742765) 8.6 g/dL 6.3-8.2 H ALBUMIN (test code = 8518713546) 4.2 g/dL 3.5-5.0 ALK PHOS (test code = 8002111765) 109 U/L 34-122 ALTv (test code = 1742-6) 97 U/L 5-35 H AST(SGOT) (test code = 4981590484) 162 U/L 13-40 H eGFR (test code = 60951-9) 114.6 mL/min/1.73m2 CKD-EPI eGFR (2020). Assuming creatinine has been stable day-to-day for at least three months, the eGFR indicates Category G1 (>= 90 mL/min/1.73 m2) Lab Interpretation (test code = 29282-2) Abnormal [facility]2024-09-17 21:16:00* Test Item Value Reference Range Interpretation Comme nts LIPASE (test code = 8742049898) 103 U/L 0-220 Lab Interpretation (test cod e = 66299-2) Normal [facility] [id number] 20:30:00* Test Item Value Reference Range Interpretation Comme nts POCT PREG (test code = 1605) Negative On board controls acceptable with C Line (test code = 3574) Yes POCT PREG LOT # (test code = 3575) [id number] POCT PREG TEST DATE ( test code = 3576) 2025-05-06 Lab Interpretation (test cod e = 25302-5) Normal [facility] P[facility] W [id number] 01:34:03EXAM: CT ABDOMEN PELVIS W CONTRAST ORDERING [...] S1. The soft tissues otherwise of no concerningfindings.[facility] Test 2024-01-28 01:22:00* Test Item Value Reference Range Interpretation Comme [facility] POCT PREG (test code = 1605) Negative On board controls acceptable with C Line (test code = 3574) Yes POCT PREG LOT # (test code = 3575) [id number] POCT PREG TEST DATE ( test code = 3576) 11/28/2024 Lab Interpretation (test cod e = 26462-3) [id number] 23:07:20* Test Item Value Reference Range Interpretation Comme [facility] TROPONIN I (test code = 7156909899) 0.006 ng/mL <=0.034 KASHIF (test code = [...] of biotin. Lab Interpretation (test code = 40803-8) Normal [facility] (NA, K, CL, CO2, GLUCOSE, BUN, CREATININE, CA)2023-10-03 22:56:00* Test Item Value Reference Range Interpretation Comme nts NA (test code = 6732417582) 137 mmol/L 135-145 K (test code = 6347198332) 4.0 mmol/L 3.5-5.0 CL (test code = 6152236588) 107 mmol/L 98-108 CO2 TOTAL (test code = 0187908188) 24 mmol/L 23-31 AGAP (test code = 6133032251) 6 2-16 BUN (test code = 3965160716) 19 mg/dL 7-23 GLUCOSE (test code = 7896627769) 110 mg/dL 70-110 CREATININE (test code = 2160-0) 0.64 mg/dL 0.50-1.04 CALCIUM (test code = 9772012497) 8.7 mg/dL 8.6-10.6 eGFR (test code = 30204-0) 112.6 mL/min/1.73m2 CKD-EPI eGFR (20 21). Assuming creatinine has been stable day-to-day for at least three months, the eGFR indicates Category G1 (>= 90 mL/min/1.73 m2) [facility] with [id number] 22:54:01* Test Item Value Reference Range Interpretation [...] 31.9 g/dL 31.6-35.1 RDW-SD (test code = 66247-6) 46.0 fL 39.0-49.9 RDW-CV (test code = 788-0) 14.4 % 12.0-15.5 PLT (test code = 777-3) 271 166-358 MPV (test code = 45522-2) 10.1 fL 9.5-12.9 NRBC/100 WBC (test code = 3487766270) 0.0 0.0-10.0 NRBC x10^3 (test code = 9058627112) See_Comment [Automated messa ge] The system which generated this result transmitted reference range: 10*3/?L. The reference range was not used to interpret this result as normal/abnormal. GRAN MAT (NEUT) % (test code = 770-8) 58.8 % IMM GRAN % (test code = 8854495504) 0.50 % LYMPH % (test code = 736-9) 32.9 % MONO % (test code = 5905-5) 6.2 % EOS % (test code = 713-8) 1.1 % BASO % (test code = 706-2) 0.5 % GRAN MAT x10^3(ANC) (test code = 1576163453) 6.03 10*3/uL 1.88-7.09 IMM GRAN x10^3 (test code = 2791801843) 0.05 10*3/uL 0.00-0.06 LYMPH x10^3 (test code = 731-0) 3.37 10*3/uL 1.32-3.29 H MONO x10^3 (test code = 742-7) 0.64 10*3/uL 0.33-0.92 EOS x10^3 (test code = 711-2) 0.11 10*3/uL 0.03-0.39 BASO x10^3 (test code = 704-7) 0.05 10*3/uL 0.01-0.07 Lab Interpretation (test code = 60413-0) Abnormal [facility] System[facility] CHEST 1 [id number] 22:06:13Ordering Physician: TAYLOR BYNUM Clinical Indication: cp Additional Clinical Information: Technical Limitations: None Comparison: None Technique: Portable chest obtained at 1608 hours Findings: Shallow inspiration. Cardiomegaly. Mild asymmetric rightinterstitial infiltrateUn[facility] ACTIVATED PARTIAL THRMPLAS [id number] 00:48:15* Test Item Value Reference Range Interpretation Comme [facility] APTT Patient (test code = 3173-2) 28 See_Comment [Automated message] The system which generated this result transmitted reference range: 23 - 38 Seconds. The reference range was not used to interpret this result as normal/abnormal. KASHIF (test code = KASHIF) The [facility] patient population mean normal value for aPTT is 30 seconds. Lab Interpretation (test code = 02914-6) Normal [facility] SystemPROTHROMBIN TIME / [id number] 00:46:14* Test Item Value Reference Range Interpretation Comme [facility] PROTIME PATIENT (test code = 5964-2) [...] the indications. Lab Interpretation (test code = 85244-7) Normal [facility] SystemCOMP. METABOLIC PANEL (71580)2023-05-07 00:39:34* Test Item Value Reference Range Interpretation Comme [facility] NA (test code = 6577589681) 140 mmol/L 135-145 K (test code = 0147601529) 3.2 mmol/L 3.5-5.0 L CL (test code = 7504967807) 105 mmol/L 98-108 CO2 TOTAL (test code = 5303383874) 24 mmol/L 23-31 AGAP (test code = 1286775272) 11 2-16 BUN (test code = 7126885078) 11 mg/dL 7-23 GLUCOSE (test code = 3181059046) 114 mg/dL 70-110 H CREATININE (test code = 2197017054) 0.47 mg/dL 0.50-1.04 L TOTAL BILI (test code = 8564057881) 0.5 mg/dL 0.1-1.1 CALCIUM (test code = 4622438016) 8.7 mg/dL 8.6-10.6 T PROTEIN (test code = 3063086196) 7.6 g/dL 6.3-8.2 ALBUMIN (test code = 9382857773) 3.9 g/dL 3.5-5.0 ALK PHOS (test code = 2845256641) 99 U/L 34-122 ALTv (test code = 1742-6) 50 U/L 5-35 H AST(SGOT) (test code = 3149068098) 56 U/L 13-40 H eGFR (test code = 8765503732) 144.6 mL/min/1.73m2 KASHIF (test code = KASHIF) [...] imaging tests). Lab Interpretation (test code = 24381-0) Abnormal [facility]2023-10-11 00:39:14* Test Item Value Reference Range Interpretation Comme nts LIPASE (test code = 3986273972) 154 U/L 0-220 Lab Interpretation (test cod e = 86721-0) Normal [facility] WITH [id number] 00:25:48* Test Item Value Reference Range Interpretation Comme nts WBC (test code = 6690-2) 10.00 See_Comment [Automated messa ge] The system which generated this result transmitted reference range: 4.30 - 11.10 10*3/?L. The reference range was not used to interpret this result as normal/abnormal. RBC (test code = 789-8) 4.53 See_Comment [Automated messa ge] The system which [...] 33.7 g/dL 31.6-35.1 RDW-SD (test code = 34078-3) 44.6 fL 39.0-49.9 RDW-CV (test code = 788-0) 13.7 % 12.0-15.5 PLT (test code = 777-3) 329 See_Comment [Automated BiteHuntera ge] The system which generated this result transmitted reference range: 166 - 358 10*3/?L. The reference range was not used to interpret this result as normal/abnormal. MPV (test code = 21075-7) 10.1 fL 9.5-12.9 NRBC/100 WBC (test code = 3711192300) 0.0 See_Comment [Automated me ssage] The system which generated this result transmitted reference range: 0.0 - 10.0 /100 WBCs. The reference range was not used to interpret this result as normal/abnormal. NRBC x10^3 (test code = 7617961717) See_Comment [Automated me ssage] The system which generated this result transmitted reference range: 10*3/?L. The reference range was not used to interpret this result as normal/abnormal. GRAN MAT (NEUT) % (test code = 770-8) 60.3 % IMM GRAN % (test code = 6482277523) 0.40 % LYMPH % (test code = 736-9) 31.3 % MONO % (test code = 5905-5) 6.0 % EOS % (test code = 713-8) 1.5 % BASO % (test code = 706-2) 0.5 % GRAN MAT x10^3(ANC) (test code = 8189692681) 6.03 10*3/uL 1.88-7.09 IMM GRAN x10^3 (test code = 5244945603) 0.04 10*3/uL 0.00-0.06 LYMPH x10^3 (test code = 731-0) 3.13 10*3/uL 1.32-3.29 MONO x10^3 (test code = 742-7) 0.60 10*3/uL 0.33-0.92 EOS x10^3 (test code = 711-2) 0.15 10*3/uL 0.03-0.39 BASO x10^3 (test code = 704-7) 0.05 10*3/uL 0.01-0.07 [facility]PO[facility] [id number] 23:53:00* Test Item Value Reference Range Interpretation Comme [facility] POCT PREG (test code = 1605) Negative On board controls acceptable with C Line (test code = 3574) Yes POCT PREG LOT # (test code = 3575) [id number] POCT PREG TEST DATE ( test code = 3576) 2024-09-24 Lab Interpretation (test cod e = 57479-7) Normal [facility] [id number] 18:13:10* Test Item Value Reference Range Interpretation Comme [facility] Case Report (test code = 0806613137) Surgical Pathology ?Case: [id number] ? Authorizing Provider: ?Marcos Rodriguez MD ?Collected: ? 04/25/2023 1313 ?Ordering Location: ? ? GI Endoscopy OR Department Received: ?04/28/2023 1017 ?Pathologist: ? Lee Glez MD PhD ?Specimen: ? ?STOMACH, Gastric forcep bxs - Eval for HPylori ? Final Diagnosis (test code = 4539715354) h4jvaACfRSRyx1vqVBCxvV FuZzEwMzNcZnRuYmpcdWMx SOwytbNfHTnvzOolWWL6PD AcVP0dpAnbkKl6kPlfWVHd erX0xUJdLVnap8apJMN9e6 nxlsisEMQkCTwqYf7vdILx lVimYxTzQUZzUGi1cS11ZV OsxH5ccNShODx5ZENsuMOc hpOvBcMvUNTrcECuuVA8SF IiSW3vjdvwKIsxWFbqWHNq kmM1TIViiSZxQ0AqWDNiGH 8hkbneZXB9FYccGUPnRBL4 UuBzFJDnc5Ewylc8FhEmrD FyZFxwbGFpblxmczIwXHBh ktFCUwWADX1YYBGXMUEDYE 5LS4w9LCKxafTgMMJpFH5s D4SAMSJGVrRTBTIZG3WuM8 iUPDNKQyDYAKOKS0eGY4dL UKTKHM9SFGHplJSnQAQxSD ZfRZAQSuEEHgFMX7HJXaOX VN0HPASKTGSCRQAwCTAZWz RJRklFRFxwYXIgICAgICAt EB6EKZhqUBfQA1WYHA2QB4 FOSVNNUyBJREVOVElGSUVE XHBhclxwYXJkXHBhciBHaW nlSFL4mmTKDB04yxnnXBFx cGFyXHBhcmRccGFyfXtccn EaJLmeb7ZzN1XqJrJkMJlr bnNpXGRlZmxhbmcxMDMzXG S6cuAvXGTsALnpBHQjFZcc Su0ioCIqpPbiBzQtWARbm5 kpzuYSFMdyFlHsQ668UAOi TGqbe6tqo4FnITPxnSKmx3 D6FILMxrqimGs7k1ywTdYr GhW9jMYbDJihU3ezakFtxN WvZ0AzxESegRz0jLndQ87u o9Z5PzdaS3czIKUuKUJwW9 GoAO8tCYRrVkd3SRP4TYT2 OYGcYCLzJ3EeAL3kPJYbxG XiRWw9l4jlaCvjANNhQHD0 v4xqYEfmggA0BL7idr2frT r9a8oubuYnKCVbUEVsyYVS QLMhJ2JgoTsdRc7suZd2sO lfSzxmYBY0Wxl7ZH6aai17 jrf9zChwDTYizdthTpH4FE zgZWRtvhzsKSg6SKenNYDp dBO1DRAvqEIrZ9SpMCKaZZ 2avgi3JND8TDzrEANoIcC6 NDBcaGVhZGVyeTcyMFxmb2 87QVJ4LvZyIE6rK4Ztv2H9 iT2xqSHrLJBszTJhLyNaPI Utww9viGHjNIwwx9WxXAN1 nbS8uYGjbIUzTWLiXP53Jm xnm2PpNitnIFU2UFPkggUe c4Ofn6wzPkFugzIlD2nyD2 JyZHJoZWFkXHBnYnJkcmZv i4Vep5YukIOjxVm3y5coIW NjMGAiaFvwk6mwHTL6OPEm K5X0yXXey2jtGZsoXLEqnF B4rhQ4UHYlbVVrJ1NpyX9l LBRkBK1tmam2e7xeNWZ0JY nwEYJaNjQ8qzM1JWFooBWw XWVbqFeiUScug071MKT8Gs HgLOZvo1YnG1ZwyEfrP78l jNmmX11hCIKsyHhpaH0ikO aqeP8qRtTwRcNcOYzhlXsr bGFpblxmMVxmczIwXGxhbm eiIDWuREsgX7crLfPwOBLj aXcyTTjdc5EnZLNbKQNmKm xmczIwXHBhciBJIGhhdmUg tHRtv88zHLtzwUWtFVTiEM lzCBSjhUezv8JyO1saQU6j A7WhiHTaysKpahQkVNwfOX Ida6y2qUOooGvfn5KnsCJw ZO13vpZbLKKpMAL0PDAna5 bgUD97nakpFiQgtY12syIr oaIwCZLgb9iyM4unxYZot9 Lrr9NsqgBeNAmvh6CzMP7q oDOphukqiVQ3GLHnpKCsrz LpriN2sIibPVFmcK6orO2x zPvjxU7pAoKpBkNaRTjsZP 1mBIKtV2xkkJXqRAAaRXSr A0dcYfYqrC3gxNhgIaahks C9IBXzkq00 Clinical Information (test code = 0976004072) Abdominal pain, generalized [R10.84]1. Gastric forcep bxs - Eval for HPylori Gross Description (test code = 9581928768) h2vgrNSsMLOxmMYDIRV4PH NxBB6vrWghfQl7sNuxJJBt gqS7lVKnCAfmx1tlSRD0x6 tidnEHDsyjLDMiAU3qWQak HMRpOB0eYmXbJGOeNlJkLP BhcGVydzEyMjQwXHBhcGVy pRT5CQTvCZ1wgsxeKZecVV mdPCEpcrU1TQRlyWQeC7Hl PBKhOD5fxuftUMY1LWOZPd fhGu3unTHedDsgLgVxRyAe YXJzZXQwXGZuaWwgQXJpYW e2hB9ZTpztCOJ4NTVPRako SfyctNzvs8WhsIDaBIHvIV xcaWQgNTEwMDAgXFxkYiBP ElYcFwY5Zax9YTSmBjH1MK b7IWFAZSTiPxsgVFC3XBY3 QHu1XVBuHZ3sRRvjjYIlJF kpFwzkHCcoY466FEssWVFp O2YbL4TfCHqyVdAuHCopHX GmBWJhPWtyTRLaM2UIMHZz XOK5ZcAhIGCoNCg2SNgeY0 AHTAWcKVYcWsBiFjO6PxW2 FCf3EVTIBw1qVLaxScNwFI A0FXV7QPw4XoQyGKYqDsYc BDNkTQWzGGowiTMqKY9bkQ xdVIPwBF2SUETyIEqxVNHa MeBeR8MSR5pZKW7hBEkhsQ JjaFxmczIyXHBhciANClxw BIDrNQ8YDRZcHCtmUCb4we IwLAFtLsMlJKDhI12kq3ZK n5FbTX2RLFl4hhRjoyembQ 6eTBMmenRcFRnRrLEdgF5h txXLNXhlJTTxU5LaddEzZQ keGKBsgi9osEltDQfsKhQd bGVkIHdpdGggdGhlIHBhdG iryrVfU6X6vjImEI7iDAYQ WHGjrY4kJYVwXZTlw0GccH IutWfnK8QbjBTfCvNmo0Iz XWGgOlvkUKB7VUcrLw7uLH ypIAB9tI9szIejTvWrZ2Z0 MENrXCBfv91faED0rlXnFp GwQSFrhqHiqvIqO6BcVHUo v33mtVT6kLZsqXLcHhNvE4 9xvxFyDSpvBrKaLW9dTAZg CQrkKYwcQGV1KNG8EWNysS Znm9xwmdmtLZ99JOvxPC3k MJdiPF4yRAVqNGgtZDCqO7 TmH2D4CBoeWLXlYZKcmTPu gH5bvzYjcuNgdZh0AHXwYS P7dREroCvtCIAxFxsniNO5 VRUpGbRkgwHdy4JfnLi5pV UsABeeQQRnaH4mqH0jPWBz XHBhciANClxwYXIgDQpcc2 EzMFxlcGljWHNhMzAgDQpK lUuyAZWHH0jnmPViECjfCJ CCLMcKB3SJPJ8XFLYrnNXC XTO2LM5aRXsqEDGiC7YaR6 EcbpW9y9fnuMifs5JxwDCm AM0riMGtZE8DISDfniMxRW p9 Disclaimer (test code = [id number]) h5aqfARpGRIrx1tgKQUshP FuZzEwMzNcZnRuYmpcdWMx NThtdyNgMRaxo7JmS0RyRv AwMFxhbnNpXGRlZmxhbmcx SJHfZXI5pyYgGBEgFAcrUG HwXPhrOq1jtUHsnJkySjLn MECrn1olbuRKIDyyTiYvF2 69HFZqYBawq1qff7DaXAFa zYLjl7F7JSGXwmihyZz2sJ ubH56sh1J0PhtqD0noCPVt ONErQ9GuES7cINVrNns2EU M6FWW0BRKbUWOzL2EwLV7u WIVryLBnROz8f3lvvLswBF KeLPI2v6glJGcsuwVtGS7p qo5snYy7q7rzfkWtQCZhQK UywDVMPZIiN1LnrOaiFv2u xVb3iGdqMpghTKP3Yfb2KB 8xuo43ujl6xJkjTACbawzf LzM3IOfxWIGoxcrzIAg6TL kzVIOlgUC4RKUesUFqF4Wf MHQdGG4hqoc6HLO0FXuzQD YeDjO7JIUngHWbQLWwgDcf IKdwe010QEU5DbBsHB1qO6 Dmv9X9zW9pnBFtLNFvdPIe SwRqTAKubz0czEFzXHdjr2 YsKAO5paK6nFYyoEHuSJUz AX00Seqyy7YjIgoxg4MpW9 9gqYD0WRvhj2izTZ6kKwK7 jwKeZPesx2fmkS3xCrB8DR cgQL5pMH5oTNDluR3ekjeo XHBnYnJkcmhlYWRccGdicm HpOz0mhEseZJC1BTepI3jz mW5pUmQ4AMdrA3fxhU6rJN t1GNtpfRT4XJIxnD0eWD4j ddyms4frZGruSAkoUBYnvc H9xxS6EXIvnQDeJ3BzyL3m ONQjFG5vatrma7fwUUB4IK ixWRDdUXC2IbDtYDVjs3Lg icv2RyHof5NzeANbOQvdZ7 6ub861IAAjyaMaO2xbwJNe hhainNRuvueqKVxmiaR4YX HmnbAgb8JiCYLfYNA0EHud KUzsxYTpZILmsPvow2jyU4 RscGFyXHBsYWluXGYxXGZz MjBcbGFuZzEwMzNcaGljaF kzPClyIhWgWXCyVIfmK4mj IcGsJ0IoBJGfQcXsbGHlI7 ggVGhpcyByZXBvcnQgbWF5 MYiwK4z7RGOrtxVeaUn9ml NlMjZkTIBlDEA2BQyosBAa LEMfn8QaskikhVPgDo2elH ZgIPAfrV3vPZXbIDUnNZlp TS3szRr1VRERgGLspMXhNo XOTIEnFV45ueDfSNBZchoq p0Y1BWsjPDQrf0TojPWhJ2 qvw8JyUKDyo61oLX0xn2T5 h8bqDRS0XC3vb3ZoKLRqgI PopVEwQNPlp2Xcinggq0Nc ZWLiulLcx3NfUKLylaSukW XgMEFjaoPghb0pvsYsKBWh GNDjY2HllgbdgNngjmZcNV Oghe8ijaAaDWY0POQZVOWy TJLzh9FscQ0icWPZSKA4uC Wfuh5rsiZSjNHoUSEaio50 DPTjOT2oF3epHKXpFTBhno IriJDxm6RhLJJhzWV7oJBp MX7VRsVJg45dQJRnYFTXpd WsWSXviXnbxXP8uuR6gY2i IChGREEpLlx+IFRoZSBGRE GiKF5ncpRjr2WrzjUghDdc YLOtnYJni7UcoZZqq7KueG unc3VouYEmfYGaED0zMCIm clxwYXIgVVRNQiBMYWJvcm X4d5ZzVAMpAEGtMWT7dNxk iyj2YNFyoJ3fKAUzW1nkrk ntCFgmSHOyf5LfrL3obOBS yHYll7YddEVhjGUYjGSrEA 1xqgVqULrRTNsRVZG4lhMk BEKcg7IaEDbfF7orF01liJ vxbDr3fBU2BME6oC7fCun+ IFxwYXJccGFyIEFwcHJvcH KxACZokSsgdcAyX9LkepYy gW7itWAyrnBsPY2gKB2eJ2 O3uLHdAQTjufAuu9leUBnu dmUgYmVlbiByZXZpZXdlZC Cdi2ZwVZpsUKF7PLlzohHq bmNsdWRpbmcgSCZFLCBTcG VtnDJnPHG8RXtzktDeopVe PL3akL4yfHmxhI8aePDiqI W9dsqnKWMzPKTpiIiwKQYr DA3raXkrxW0xEkVqHxFzUV iiIL6sULRlU1wzdWVzOPTw JBJeF2wpRzAjaA1asIqlSO xjZjJcZnMyMFxwYXJccGFy XHBsYWluXGYxXGZzMjBcbG FuZzEwMzNcaGljaFxmMVxk WySzYSEuBIkeM2rgEjZcR5 SzDOPnFwHqpLAoK0twAQql VLT8ODXqBA2doCEgGX99rU Tlu5zuEXmnkOyqju9jQ19i tONpQKllgJqzSMMap24fr2 PgGQEyjcTewv5vTSNgviE2 oR2pMGBorPqcEJLugKPyUR Yyk8FgRObadGOvxoCkZBjl TJOcGMTegKTfgvI4dyJarc VtagYvMRGozQgmQKOqd2Lz BNKrDNatx9Hrnp4asLMyHX JuroQDsTttxITudJ7eA4Sd GUSwGPGgvd8cCBZydP0zXR uwx3LtxpkzHRIdBIFlWAGg otJait1jNRJjfUESAY7UIU nykYJow1GbmnYbG0nABHW0 NUQwNjYwMjgxKSBleGNlcH WzZIBbog59AOInaA4vxHfr TTLkgP1geU9vgNgioC4yIm TzElUpQBrwFS0dHXOrN1rh qMOwFYQdCJKzT6ilXmRekW 9jaFxmMVxjZjJcZnMyMFxw YXJ9fQ== Embedded Images (test code = 1834645019) [facility] [id number] 18:13:10* Test Item Value Reference Range Interpretation Comme nts Case Report (test code = 4883402108) Surgical Pathology ?Case: [id number] ? Authorizing Provider: ?Marcos Rodriguez MD ?Collected: ? 04/25/2023 1313 ?Ordering Location: ? ? GI Endoscopy OR Department Received: ?04/28/2023 1017 ?Pathologist: ? Lee Glez MD PhD ?Specimen: ? ?STOMACH, Gastric forcep bxs - Eval for HPylori ? Final Diagnosis (test code = 4403112694) v5lttXWyZFBkj2ryHWOrgO FuZzEwMzNcZnRuYmpcdWMx TGapcrJeZTyiuJxhARJ2RV WwEY4owRfpuXe2uBraYSEk cvW6dVLxMYokw9agVPW6r8 imjvtdNRRhRJneGx3bmXWb bApfZcEgUPHwSKj1xG54TY QfbV0bcOUsMYx3WYRraWHo hxVrWoMsIOXhaXOynHZ8EV MbQM6xpxyyJKzyEWvnHYMz ntL4NTDwlLAiV2ZyTJRwCM 8uwpdpTWB4KHxhGYEbITE4 TdPrEFNsc0Fvghy0GoPcmO FyZFxwbGFpblxmczIwXHBh jbDIExTYTH0LNBCYCXNQIQ 4EQ8l0TCSlhhSkUGXuNK8l Q3NVBJVDZeQJOAMNP9HbH3 uDLVGYQiWBPWWTW9sJZ1oL VQNBCW7PZWIjhPSpIKYbIZ LiAKOFGuBTWzTFZ6TBYwRH KF5YSNAZMZDVCOCjGPJURd RJRklFRFxwYXIgICAgICAt SH5OKLarGNkXB3YDLB6VZ4 FOSVNNUyBJREVOVElGSUVE XHBhclxwYXJkXHBhciBHaW huFCI9kdRCKP88cslkNYQf cGFyXHBhcmRccGFyfXtccn IbTGxjr1OkU0XdFjNoPNjy bnNpXGRlZmxhbmcxMDMzXG G6unHfBYZgPGyzNIQmMYku Vb3jwLHuhGggWmUwPIEzw7 dfuhHDEPdzGgKbC908JSFv QLjac5hse3EyAPWmzAKfi5 G2IYGWsidjsXi3j3hiPrWg XtH3zQFzVCcpA5ctwcQhtX FuQ6GnoDYzaMx8iZzgZ72p g2Q4YsnxE0icPBLeTRGfJ7 GgYC6uMGYqMcj4ZBJ8XYM4 WQDaHOAnC8LpET8rISVayP OmQTs7m5cinJosUJVuCMI7 u0jwGIpkbhG1GK5qdv0smL t1v8stlgHeOLFjNOVdgODS FDOeH2JjhJvpHj0fyHz4lZ ulUwnvYJS6Gnm5QS0qzm60 nyk6vMojSGDlwreoEhF5EX usHWDxsteeLTu9BZfaAWJc eEK5NVBdcSTgF5UdBPTbOI 4hthv3ESO7BJfiSFVcTbH1 NDBcaGVhZGVyeTcyMFxmb2 03GEU5JxSgXZ3mB7Xuv8S0 dJ2laBAgXEWuzMWsWxThIO Mtob2zdUHfHJeup2LcWOW1 urL3wOMrwSBbGIBrCV13Qh gkc0EeMbyoHAG0DCEpvnIu p3Xry1wfEoGdnwFsJ9qpV5 JyZHJoZWFkXHBnYnJkcmZv y2Pde9MbjJGdhUw6d7plLO ObIDZpbPdtm0bcQGB2SQSv Q7S3yQUxr2ekUIzpRKTtoW S1ftI4LOZkpAZdP5KcxD2d VOSeSJ3lafv6y4qkZQU4FG fzMIQpLfE7mwQ0SVKnyHSw ZDJrzFfiEZcwl279MBA5Tr QdTHPzt5SfW2GnaBrwQ81v tXmkJ29cMJIwwSuzzZ1wgV ngiH3pYjCnOpUsVPqtxCri bGFpblxmMVxmczIwXGxhbm wtKJLmGXezY5mmHtIdMJLx eUnfYMkhz5MwEZFeBQWlFb xmczIwXHBhciBJIGhhdmUg mSPfy90tPBdulBRtGUHuGG nhPEReyWjoh1VoD7swVE8s L5DpiRBuxiYatfTaPTqlQV Fxf8d9sDXcnVfrs2SpfJKq RO49nxLjYYGzFDT9LSSui0 keDM89vqdqCkFirZ40kzOt sbCdMKThz3ldE7cgpVWiv5 Ywk6CscyRlYDztg3ZbRB4j pXRwqwibgJM1HTBodRKieu XwoaT6uZemLHJhdQ9tbO5b hTeqmE0vWzFrGzVhSVfeLY 7eIQJeF8nvqZBeULIhXTKy F6idJvQefO8fwJvyNtatoo F9VKDirv98 Clinical Information (test code = 5006623160) Abdominal pain, generalized [R10.84]1. Gastric forcep bxs - Eval for HPylori Gross Description (test code = 9391836685) f5bszZDqTZAviPXFTDX7XH YhKY5dtMxrlWm9fOwiOYIl hnU1uXVyUXzpz2lpANR0c5 lqukYEAuiwHBGsTV4aWXgi DSVzRA1gWwPlVZRyAgThAP BhcGVydzEyMjQwXHBhcGVy zAQ6VJRxEZ5hfnrrRHmxFW imCDOaprI6WESbvSUqE7Gq DKSkTH0mnicsTZA4KMGEGo atWk6fxWKmaRkcQbOsLjZi YXJzZXQwXGZuaWwgQXJpYW y8fX4LTeroCJC5BSVLPlrl ZscnzXmuh2YgvWScFZYdWT xcaWQgNTEwMDAgXFxkYiBP TuByXfZ4Lkp2SJOnIyH5GW t1YRJTHSOaUylqAQS1BZF5 OLa6VGRyYX7wSDqajLMaAT blOaqiTTqtD517XRnnEPBi T9WwT9WnKCabVtPfHVsgLE EhOJAgOGkgOUKkL7WPVBSh AUI4PdYoJTFqITx7YCcvI3 OPJUIiFOCfBvShPgP3IuL4 OHe4GRJSWv3nQHurOlTwRQ X4ORQ1EEh7AbRpUWDmKfOd UJYcYMFyTLodbHBdLZ3miV xoNGXaRG5MSIJrOIzzARSc UsTdH2AER8hHPE8lUMzuaA JjaFxmczIyXHBhciANClxw CKNlIF9IGECyMVggXGy1ic LaVFMzKkIoNVRaF42sc8HC r3FzFN5NAAz3doJvjmeftZ 6oTNPlywRmWCbHpGMrgU7l oxYGDFsiJYVpN3EpouNjAQ ihSCUnri5diExdIEdaTgDg bGVkIHdpdGggdGhlIHBhdG rujmUvA3K1kvTbWI8xTSPE NYRflE8uOGGsZCOiz7PvjT FcoGfbR4WyvKXiUgHwg2Mf MKEwWfaoBBK4ZQjjHz6gMQ onWOA9pQ4deNgtEzDsS4V9 PVSbEENqr05blPZ7elVpKq CcHKMgvpIvszXvD6McUMVd q46cyED3oWKvlGNcIqRzY3 6dbuBrCJjcJrXuWS8uXRAe LPmjXWqvRDH2FLY5NJBbpO Ffl9fwhjqoKF65WZnmZM8h YTsiGY4wJDFnQDloFBUdA8 QnZ4Q8GLhjSBYdBNHojWLr cB2furRjjsMsiUa7AHRtNH S4yFFqdQmoHKBnVgmtqXR1 VNZzXbGpivPgc1ArwGe3fF QoDNztRQXjaO0xkJ9bVKQw XHBhciANClxwYXIgDQpcc2 EzMFxlcGljWHNhMzAgDQpK jVmeCSPMH7apwTEbPDoqEE YOHHbBW4FMEW6ISTRrnWYA VXT8SP2fGDmgGNOkN5RdK0 EyttT9s1kcwKeox6PlzXXg ZP6axNGpHB8WVIHbdiIsKC p9 Disclaimer (test code = 0330471792) f7tzcJNhJSLob0exZOLjqV FuZzEwMzNcZnRuYmpcdWMx NJcawhLmQHmte0JbQ0CeWj AwMFxhbnNpXGRlZmxhbmcx JUKjYFF0njEjYZZeFLgcNW YuOTypBm5aiJPahZlaLgRg AHTze5lqqhGQBMwgXqFrR8 84EEWiJLqvk4ukb7QxRYAm hDMkv4H6XOFJlsyvlDf1jZ etM52en5F9DwbcD5bdHQUn MXXbQ1DzKI9mIVDdSik5LX S5LFS6HSXeEVZuI6PvFC5t QTRtaETjZLz9q8nvgYfxAS XkEES9m7boBOtyjnZeXQ9n qq0nhKq7f1dsraQdZZGuEU GdqGAZFIZxT9XmpBknFv2z gOp9nFbkJymqGDW2Iub5ZZ 4xiv52njp2iYvdNIXsinla IzM8KCvaPPHfjesfOIy1KA mjJKLszCQ3REJbbUNnT4Ze JTWaMY8prjp4WYQ7FWefZE VrHwJ4UITekCYfVUEygTds YRubr038MAR0FtTuIU9zR0 Xra3F5gB8dhWZvXRQbrVBv KcNzSGPobg2fbLZfNPefe0 YbQZK6zxZ8gAXxeXUaOYJe CB39Ursvq7GyGpayh6EhR2 3hmZK8LXpwk3sgTY9pOuB6 sgBrUJupd1qhrS8gMoK7AU igLE7lWZ5mZVIodO4zqgnh XHBnYnJkcmhlYWRccGdicm IsWm3jjTfsHBM2SNelP4ix yY2lTgS1FFicC2sxkW3sFK x8POgecTS6BZLrvT3gMQ3y oetwn5vkPTpvJXysNCYbge G0btU1QGWtdKObC5TaeF1f YMFaVK2fzzhuu4ufLUI1FS caGAPgESQ0IeWlOBLwv1Kq xni4UyPoj3JutEUpCXtmE2 9pp985BHKaceEpZ4dgtKSg varxbKBmiqdoJJzyayB6RK DcqxVnw1JoOWYoQEB6MRmo SClbyVGoNLMcsPmva6axA8 RscGFyXHBsYWluXGYxXGZz MjBcbGFuZzEwMzNcaGljaF nlBHokRxLcNGXnGUswG5qe DnAjC9RrKYFhVhEnkMZwF7 ggVGhpcyByZXBvcnQgbWF5 YLfjH6p8ADZfwpIsbPb1jf FzCtGjQPHwRQA4IYkjzSRb UQRyj1EjnictqADjBk5tkI KdGGXdlL6sYINfSIBuORzj FV4sjWv4IFYRzQKnsLPmJz MPPCXcIE80yvUuCNYUfefx g0B0WBijYYMhe6ZjoHBgY9 hef2WcMSUmy31nSU6qy5A8 n4ygCLY9ZY5dx4OtHZDxsC XjoTXkBNSze7Unyqutl5Xn IXCyssQoq7FtSZZaxpDxnR OgMCIzcmTply0glgVhKWFd FIVmU8XfizuzsZopniYdFB Fvdi4xisOwEBF1FCTXKKBa ZJHub5XquD9miRDHJNE7cV Mksy7cnlALiLMuWBUwfh77 TKVwOF9pL0gkTJPbPZMkds XkoVWxv1YnKTBcuKH8hWUp RC3EIcHEy81nIXGmJOQZmm DoJIAzkPaahVH1xdG6qR9l IChGREEpLlx+IFRoZSBGRE YfMK6pnmTfq1PusmGerFcg TUFvkMGfi0MnaONwx0XqbU uoj3SegIMotUXoXO1kOTKu clxwYXIgVVRNQiBMYWJvcm X7o7DvCIZoFGXvYLV5yHtx zqh9TFZrmY7dVPFmS9vaab zjLWrfNFPxu0DjjU2foUGP sSNpx4WcvQVemQAYyCLgNG 9vqfMlODvWNMaBNMZ4qbAv ETOog7LcFZaxC5vmA19sgH tnsWk9kUG2IVO0xB8sWjn+ IFxwYXJccGFyIEFwcHJvcH AdQAKxqVvkroMfN5AebsYf xT2uaRZoqaOiEG6cJW1kW0 F7tXBrRWMqorNna3ryKSne dmUgYmVlbiByZXZpZXdlZC Kzi0UdYJsbPWE1GRvlqfQi bmNsdWRpbmcgSCZFLCBTcG DulKVvRML4RDkctqQdyrAg KV8juG3lrBnkvW8wdZQodE G1olyaYZVpCPXghWljCOXt VT3rmGjqfX3wSiVxWqFdRM euSE1vIHZoM4vxrKEaVNRj CQSrP5syCvDdyI4boXbcIY xjZjJcZnMyMFxwYXJccGFy XHBsYWluXGYxXGZzMjBcbG FuZzEwMzNcaGljaFxmMVxk GdVjGAZdPTahV3igHyQmZ2 YhFJLtPhOjrRRuN2xxGNyr MMD8FDZvFD9hnJCvWC24wH Hwh1elMWzqlDuayw8bV53e zFJzPBibjAfkXFFws72hi5 MbMSOstcZszp9cOOHiavF3 nQ7cNEEkzZwtNCRizSOcAP Oot6CdOCsdaUFidyDvALmz PNLhZFCpcTKkmeC0avQwwr MxqcXkJSCjkEikZMIyb8Qf NUScIPxhy6Hdpr8lcYHaLD MnovTVcCezuGLjgC0dH3Dn MCXmRQTqpa8cRZQeyM3fRA plq6VgrkkbNMRzHAGwTSPc waZyht7zYFApfZCGRP4HLJ badNYxx6AtwwMwX7eMCCZ4 NUQwNjYwMjgxKSBleGNlcH DrMEPojq51EVYulF3duQjl STIkqM8sxT1vaSamkG1jAc NwAfBrPHxgHH8mLSKbW0hx pNSlKPOaUDCoG0bePaMmjM 9jaFxmMVxjZjJcZnMyMFxw YXJ9fQ== Embedded Images (test code = 8791926338) [facility] [id number] 17:55:00* Test Item Value Reference Range Interpretation Comme nts POCT PREG (test code = 1605) Negative On board controls acceptable with C Line (test code = 3574) Yes POCT PREG LOT # (test code = 3575) [id number] POCT PREG TEST DATE ( test code = 3576) Lab Interpretation (test cod e = 45911-1) Normal [facility] [id number] 17:55:00* Test Item Value Reference Range Interpretation Comme nts POCT PREG (test code = 1605) Negative On board controls acceptable with C Line (test code = 3574) Yes POCT PREG LOT # (test code = 3575) [id number] POCT PREG TEST DATE ( test code = 3576) Lab Interpretation (test cod e = 74056-4) Normal [facility] [id number] 17:55:00* Test Item Value Reference Range Interpretation Comme nts POCT PREG (test code = 1605) Negative On board controls acceptable with C Line (test code = 3574) Yes POCT PREG LOT # (test code = 3575) [id number] POCT PREG TEST DATE ( test code = 3576) Lab Interpretation (test cod e = 36535-7) Normal [facility]. METABOLIC PANEL ([id number])2023-04-22 00:07:45* Test Item Value Reference Range Interpretation Comme nts NA (test code = 3345104248) 141 mmol/L 135-145 K (test code = 7762829340) 3.6 mmol/L 3.5-5.0 CL (test code = 3165437676) 106 mmol/L 98-108 CO2 TOTAL (test code = 2219931925) 25 mmol/L 23-31 AGAP (test code = 9103927949) 10 2-16 BUN (test code = 3548890235) 12 mg/dL 7-23 GLUCOSE (test code = 9503708433) 91 mg/dL 70-110 CREATININE (test code = 6275824271) 0.61 mg/dL 0.50-1.04 TOTAL BILI (test code = 4545748355) 0.9 mg/dL 0.1-1.1 CALCIUM (test code = 9414362988) 8.9 mg/dL 8.6-10.6 T PROTEIN (test code = 0618279397) 7.6 g/dL 6.3-8.2 ALBUMIN (test code = 6080184972) 4.0 g/dL 3.5-5.0 ALK PHOS (test code = 4042947764) 81 U/L 34-122 ALTv (test code = 1742-6) 62 U/L 5-35 H AST(SGOT) (test code = 1851881610) 98 U/L 13-40 H eGFR (test code = 6646410161) 107.0 mL/min/1.73m2 KASHIF (test code = KASHIF) [...] imaging tests). Lab Interpretation (test code = 27405-4) [facility]* Test Item Value Reference Range Interpretation Comme nts LIPASE (test code = 0854867315) 111 U/L 0-220 Lab Interpretation (test cod e = 85526-6) Normal [facility] METABOLIC PANEL (62952)2023-04-22 00:07:45* Test Item Value Reference Range Interpretation Comme nts NA (test code = 7746268135) 141 mmol/L 135-145 K (test code = 3332917371) 3.6 mmol/L 3.5-5.0 CL (test code = 9987304469) 106 mmol/L 98-108 CO2 TOTAL (test code = 7989521465) 25 mmol/L 23-31 AGAP (test code = 4383671115) 10 2-16 BUN (test code = 4538779973) 12 mg/dL 7-23 GLUCOSE (test code = 6962753359) 91 mg/dL 70-110 CREATININE (test code = 0304460850) 0.61 mg/dL 0.50-1.04 TOTAL BILI (test code = 6063400306) 0.9 mg/dL 0.1-1.1 CALCIUM (test code = 4383305667) 8.9 mg/dL 8.6-10.6 T PROTEIN (test code = 4602348080) 7.6 g/dL 6.3-8.2 ALBUMIN (test code = 4794174179) 4.0 g/dL 3.5-5.0 ALK PHOS (test code = 9058021943) 81 U/L 34-122 ALTv (test code = 1742-6) 62 U/L 5-35 H AST(SGOT) (test code = 2980373471) 98 U/L 13-40 H eGFR (test code = 3326361547) 107.0 mL/min/1.73m2 KASHIF (test code = KASHIF) [...] imaging tests). Lab Interpretation (test code = 05339-3) [facility]:07[facility]* Test Item Value Reference Range Interpretation Comme nts LIPASE (test code = 1948263871) 111 U/L 0-220 Lab Interpretation (test cod e = 80161-1) [facility]OLIC [facility] (73045)2023-04-22 00:07:45* Test Item Value Reference Range Interpretation Comme nts NA (test code = 6985835887) 141 mmol/L 135-145 K (test code = 2144292566) 3.6 mmol/L 3.5-5.0 CL (test code = 9174514235) 106 mmol/L 98-108 CO2 TOTAL (test code = 0248178462) 25 mmol/L 23-31 AGAP (test code = 5481077415) 10 2-16 BUN (test code = 3566435411) 12 mg/dL 7-23 GLUCOSE (test code = 6943406463) 91 mg/dL 70-110 CREATININE (test code = 7410387287) 0.61 mg/dL 0.50-1.04 TOTAL BILI (test code = 7429391715) 0.9 mg/dL 0.1-1.1 CALCIUM (test code = 0033292104) 8.9 mg/dL 8.6-10.6 T PROTEIN (test code = 8060975841) 7.6 g/dL 6.3-8.2 ALBUMIN (test code = 1043669833) 4.0 g/dL 3.5-5.0 ALK PHOS (test code = 5950921470) 81 U/L 34-122 ALTv (test code = 1742-6) 62 U/L 5-35 H AST(SGOT) (test code = 5803895814) 98 U/L 13-40 H eGFR (test code = 4545279173) 107.0 mL/min/1.73m2 KASHIF (test code = KASHIF) [...] imaging tests). Lab Interpretation (test code = 71779-2) [facility]:07:45* Test Item Value Reference Range Interpretation Comme nts LIPASE (test code = 7841093947) 111 U/L 0-220 Lab Interpretation (test cod e = 88421-1) Normal [facility], [id number] 23:59:37* Test Item Value Reference Range Interpretation Comme nts PREG SERUM (test code = 4480884507) Negative KASHIF (test code = KASHIF) Less than 10 IU/L. ?If low titer or ectopic is suspected, resubmit specimen in 48-72 hours. [facility], [id number] 23:59:37* Test Item Value Reference Range Interpretation Comme nts PREG SERUM (test code = 1992883915) Negative KASHIF (test code = KASHIF) Less than 10 IU/L. ?If low titer or ectopic is suspected, resubmit specimen in 48-72 hours. [facility], [id number] 23:59:37* Test Item Value Reference Range Interpretation Comme nts PREG SERUM (test code = 2439017236) Negative KASHIF (test code = KASHIF) Less than 10 IU/L. ?If low titer or ectopic is suspected, resubmit specimen in 48-72 hours. [facility] [id number] 23:49:04* Test Item Value Reference Range Interpretation Comme nts WBC (test code = 6690-2) 8.80 See_Comment [Automated [employer] ge] The system which generated this result transmitted reference range: 4.30 - 11.10 10*3/?L. The reference range was not used to interpret this result as normal/abnormal. RBC (test code = 789-8) 4.40 See_Comment [Automated [employer] ge] The system which generated this result [...] 34.0 g/dL 31.6-35.1 RDW-SD (test code = 70700-5) 44.9 fL 39.0-49.9 RDW-CV (test code = 788-0) 14.0 % 12.0-15.5 PLT (test code = 777-3) 288 See_Comment [Automated messa ge] The system which generated this result transmitted reference range: 166 - 358 10*3/?L. The reference range was not used to interpret this result as normal/abnormal. MPV (test code = 66381-5) 10.0 fL 9.5-12.9 NRBC/100 WBC (test code = 8725231284) 0.0 See_Comment [Automated me ssage] The system which generated this result transmitted reference range: 0.0 - 10.0 /100 WBCs. The reference range was not used to interpret this result as normal/abnormal. NRBC x10^3 (test code = 3857284076) See_Comment [Automated me ssage] The system which generated this result transmitted reference range: 10*3/?L. The reference range was not used to interpret this result as normal/abnormal. GRAN MAT (NEUT) % (test code = 770-8) 57.3 % IMM GRAN % (test code = 7888028909) 0.20 % LYMPH % (test code = 736-9) 34.7 % MONO % (test code = 5905-5) 6.0 % EOS % (test code = 713-8) 1.3 % BASO % (test code = 706-2) 0.5 % GRAN MAT x10^3(ANC) (test code = 5548907154) 5.05 10*3/uL 1.88-7.09 IMM GRAN x10^3 (test code = 4109540881) 0.00-0.06 LYMPH x10^3 (test code = 731-0) 3.05 10*3/uL 1.32-3.29 MONO x10^3 (test code = 742-7) 0.53 10*3/uL 0.33-0.92 EOS x10^3 (test code = 711-2) 0.11 10*3/uL 0.03-0.39 BASO x10^3 (test code = 704-7) 0.04 10*3/uL 0.01-0.07 [facility] WITH [id number] 23:49:04* Test Item Value Reference Range Interpretation [...] 34.0 g/dL 31.6-35.1 RDW-SD (test code = 94246-7) 44.9 fL 39.0-49.9 RDW-CV (test code = 788-0) 14.0 % 12.0-15.5 PLT (test code = 777-3) 288 See_Comment [Automated messa ge] The system which generated this result transmitted reference range: 166 - 358 10*3/?L. The reference range was not used to interpret this result as normal/abnormal. MPV (test code = 55956-7) 10.0 fL 9.5-12.9 NRBC/100 WBC (test code = 7783695853) 0.0 See_Comment [Automated me ssage] The system which generated this result transmitted reference range: 0.0 - 10.0 /100 WBCs. The reference range was not used to interpret this result as normal/abnormal. NRBC x10^3 (test code = 9917575527) See_Comment [Automated me ssage] The system which generated this result transmitted reference range: 10*3/?L. The reference range was not used to interpret this result as normal/abnormal. GRAN MAT (NEUT) % (test code = 770-8) 57.3 % IMM GRAN % (test code = 0455821056) 0.20 % LYMPH % (test code = 736-9) 34.7 % MONO % (test code = 5905-5) 6.0 % EOS % (test code = 713-8) 1.3 % BASO % (test code = 706-2) 0.5 % GRAN MAT x10^3(ANC) (test code = 6916623642) 5.05 10*3/uL 1.88-7.09 IMM GRAN x10^3 (test code = 7121988740) 0.00-0.06 LYMPH x10^3 (test code = 731-0) 3.05 10*3/uL 1.32-3.29 MONO x10^3 (test code = 742-7) 0.53 10*3/uL 0.33-0.92 EOS x10^3 (test code = 711-2) 0.11 10*3/uL 0.03-0.39 BASO x10^3 (test code = 704-7) 0.04 10*3/uL 0.01-0.07 [facility] WITH [id number] 23:49:04* Test Item Value Reference Range Interpretation [...] 34.0 g/dL 31.6-35.1 RDW-SD (test code = 63672-2) 44.9 fL 39.0-49.9 RDW-CV (test code = 788-0) 14.0 % 12.0-15.5 PLT (test code = 777-3) 288 See_Comment [Automated messa ge] The system which generated this result transmitted reference range: 166 - 358 10*3/?L. The reference range was not used to interpret this result as normal/abnormal. MPV (test code = 07354-1) 10.0 fL 9.5-12.9 NRBC/100 WBC (test code = 8970576201) 0.0 See_Comment [Automated me ssage] The system which generated this result transmitted reference range: 0.0 - 10.0 /100 WBCs. The reference range was not used to interpret this result as normal/abnormal. NRBC x10^3 (test code = 0474791519) See_Comment [Automated me ssage] The system which generated this result transmitted reference range: 10*3/?L. The reference range was not used to interpret this result as normal/abnormal. GRAN MAT (NEUT) % (test code = 770-8) 57.3 % IMM GRAN % (test code = 0310955834) 0.20 % LYMPH % (test code = 736-9) 34.7 % MONO % (test code = 5905-5) 6.0 % EOS % (test code = 713-8) 1.3 % BASO % (test code = 706-2) 0.5 % GRAN MAT x10^3(ANC) (test code = 0063560830) 5.05 10*3/uL 1.88-7.09 IMM GRAN x10^3 (test code = 3561793627) 0.00-0.06 LYMPH x10^3 (test code = 731-0) 3.05 10*3/uL 1.32-3.29 MONO x10^3 (test code = 742-7) 0.53 10*3/uL 0.33-0.92 EOS x10^3 (test code = 711-2) 0.11 10*3/uL 0.03-0.39 BASO x10^3 (test code = 704-7) 0.04 10*3/uL 0.01-0.07 [facility] WITH [id number] 01:21:02* Test Item Value Reference Range Interpretation [...] 33.2 g/dL 31.6-35.1 RDW-SD (test code = 45802-5) 46.4 fL 39.0-49.9 RDW-CV (test code = 788-0) 14.3 % 12.0-15.5 PLT (test code = 777-3) 263 See_Comment [Automated messa ge] The system which generated this result transmitted reference range: 166 - 358 10*3/?L. The reference range was not used to interpret this result as normal/abnormal. MPV (test code = 79191-3) 10.6 fL 9.5-12.9 NRBC/100 WBC (test code = 0358371660) 0.0 See_Comment [Automated [employer] ssage] The system which generated this result transmitted reference range: 0.0 - 10.0 /100 WBCs. The reference range was not used to interpret this result as normal/abnormal. NRBC x10^3 (test code = 1051758499) See_Comment [Automated messa ge] The system which generated this result transmitted reference range: 10*3/?L. The reference range was not used to interpret this result as normal/abnormal. GRAN MAT (NEUT) % (test code = 770-8) 52.2 % IMM GRAN % (test code = 7113103316) 0.40 % LYMPH % (test code = 736-9) 39.3 % MONO % (test code = 5905-5) 6.7 % EOS % (test code = 713-8) 0.9 % BASO % (test code = 706-2) 0.5 % GRAN MAT x10^3(ANC) (test code = 7653226451) 5.80 10*3/uL 1.88-7.09 IMM GRAN x10^3 (test code = 6279729064) 0.04 10*3/uL 0.00-0.06 LYMPH x10^3 (test code = 731-0) 4.35 10*3/uL 1.32-3.29 H MONO x10^3 (test code = 742-7) 0.74 10*3/uL 0.33-0.92 EOS x10^3 (test code = 711-2) 0.10 10*3/uL 0.03-0.39 BASO x10^3 (test code = 704-7) 0.05 10*3/uL 0.01-0.07 Lab Interpretation (test code = 34972-8) [facility] [id number] 01:11:58* Test Item Value Reference Range Interpretation Comme nts TROPONIN I (test code = 5777536177) 0.006 ng/mL <=0.034 KASHIF (test code = [...] of biotin. Lab Interpretation (test code = 34787-5) [facility] (04884[facility]2023-03-12 01:01:21* Test Item Value Reference Range Interpretation Comme nts NA (test code = 8254247686) 139 mmol/L 135-145 K (test code = 9235306584) 3.9 mmol/L 3.5-5.0 CL (test code = 8882931727) 103 mmol/L 98-108 CO2 TOTAL (test code = 2019496612) 26 mmol/L 23-31 AGAP (test code = 2529999908) 10 2-16 BUN (test code = 9511933376) 8 mg/dL 7-23 GLUCOSE (test code = 7596998202) 92 mg/dL 70-110 CREATININE (test code = 6039337931) 0.62 mg/dL 0.50-1.04 TOTAL BILI (test code = 9798167987) 1.0 mg/dL 0.1-1.1 CALCIUM (test code = 5033002985) 9.2 mg/dL 8.6-10.6 T PROTEIN (test code = 3357861466) 8.9 g/dL 6.3-8.2 H ALBUMIN (test code = 2111355012) 4.3 g/dL 3.5-5.0 ALK PHOS (test code = 8417307499) 102 U/L 34-122 ALTv (test code = 1742-6) 68 U/L 5-35 H AST(SGOT) (test code = 0935849476) 86 U/L 13-40 H eGFR (test code = 3023860884) 105.1 mL/min/1.73m2 KASHIF (test code = KASHIF) [...] imaging tests). Lab Interpretation (test code = 76183-0) [facility]:01[facility]21* Test Item Value Reference Range Interpretation Comme nts LIPASE (test code = 5912369109) 108 U/L 0-220 Lab Interpretation (test cod e = 23548-4) Normal [facility] [id number] 11:11:03* Test Item Value Reference Range Interpretation Comme nts TROPONIN I (test code = 5548136152) 0.009 ng/mL <=0.034 KASHIF (test code = [...] of biotin. Lab Interpretation (test code = 39491-8) Normal [facility] [id number] 02:10:36* Test Item Value Reference Range Interpretation Comme nts TROPONIN I (test code = 4297590981) 0.015 ng/mL <=0.034 KASHIF (test code = [...] of biotin. Lab Interpretation (test code = 20115-5) [facility] (15272)2023-02-03 01:27:17* Test Item Value Reference Range Interpretation Comme nts NA (test code = 3245164107) 139 mmol/L 135-145 K (test code = 2017563564) 3.8 mmol/L 3.5-5.0 CL (test code = 3571073640) 102 mmol/L 98-108 CO2 TOTAL (test code = 2074374729) 25 mmol/L 23-31 AGAP (test code = 7667346607) 12 2-16 BUN (test code = 6946367780) 15 mg/dL 7-23 GLUCOSE (test code = 0199702033) 126 mg/dL 70-110 H CREATININE (test code = 6981694209) 0.69 mg/dL 0.50-1.04 TOTAL BILI (test code = 9101110258) 1.0 mg/dL 0.1-1.1 CALCIUM (test code = 3872753090) 9.4 mg/dL 8.6-10.6 T PROTEIN (test code = 6341094266) 9.3 g/dL 6.3-8.2 H ALBUMIN (test code = 8113872110) 4.5 g/dL 3.5-5.0 ALK PHOS (test code = 3846006310) 135 U/L 34-122 H ALTv (test code = 1742-6) 112 U/L 5-35 H AST(SGOT) (test code = 3940842590) 201 U/L 13-40 H eGFR (test code = 3921186078) 92.9 mL/min/1.73m2 KASHIF (test code = KASHIF) [...] imaging tests). Lab Interpretation (test code = 36244-4) [facility] 01:27:17* Test Item Value Reference Range Interpretation Comme nts LIPASE (test code = 5542969930) 69 U/L 0-220 Lab Interpretation (test cod e = 78340-7) Normal [facility] [id number] 01:17:35* Test Item Value Reference Range Interpretation Comme nts WBC (test code = 6690-2) 13.07 See_Comment H [Automated [employer]] The system which generated this result transmitted [...] 32.8 g/dL 31.6-35.1 RDW-SD (test code = 77251-4) 47.7 fL 39.0-49.9 RDW-CV (test code = 788-0) 14.9 % 12.0-15.5 PLT (test code = 777-3) 326 See_Comment [Automated messa ge] The system which generated this result transmitted reference range: 166 - 358 10*3/?L. The reference range was not used to interpret this result as normal/abnormal. MPV (test code = 80462-2) 9.6 fL 9.5-12.9 NRBC/100 WBC (test code = 9597806671) 0.0 See_Comment [Automated [employer] ssage] The system which generated this result transmitted reference range: 0.0 - 10.0 /100 WBCs. The reference range was not used to interpret this result as normal/abnormal. NRBC x10^3 (test code = 9990542923) See_Comment [Automated messa ge] The system which generated this result transmitted reference range: 10*3/?L. The reference range was not used to interpret this result as normal/abnormal. GRAN MAT (NEUT) % (test code = 770-8) 59.7 % IMM GRAN % (test code = 3158759247) 0.30 % LYMPH % (test code = 736-9) 33.4 % MONO % (test code = 5905-5) 5.3 % EOS % (test code = 713-8) 0.8 % BASO % (test code = 706-2) 0.5 % GRAN MAT x10^3(ANC) (test code = 3047931687) 7.80 10*3/uL 1.88-7.09 H IMM GRAN x10^3 (test code = 8219983669) 0.04 10*3/uL 0.00-0.06 LYMPH x10^3 (test code = 731-0) 4.37 10*3/uL 1.32-3.29 H MONO x10^3 (test code = 742-7) 0.69 10*3/uL 0.33-0.92 EOS x10^3 (test code = 711-2) 0.10 10*3/uL 0.03-0.39 BASO x10^3 (test code = 704-7) 0.07 10*3/uL 0.01-0.07 Lab Interpretation (test code = 63897-5) [facility] [id number] 00:43:00* Test Item Value Reference Range Interpretation Comme nts POCT PREG (test code = 1605) Negative On board controls acceptable with C Line (test code = 3574) Yes POCT PREG LOT # (test code = 3575) [id number] POCT PREG TEST DATE ( test code = 3576) 07-09-2024 Lab Interpretation (test cod e = 03477-3) Normal [facility] MOLECULAR [id number] 19:47:14* Test Item Value Reference Range Interpretation Comme nts POCT Molecular FluA (test co de = 60386-7) Negative Negative POCT Molecular FluB (test co de = 46128-4) Negative Negative Lab Interpretation (test cod e = 82691-6) Normal [facility] MOLECULAR [id number] 19:47:14* Test Item Value Reference Range Interpretation Comme nts POCT Molecular FluA (test co de = 87366-3) Negative Negative POCT Molecular FluB (test co de = 83176-5) Negative Negative Lab Interpretation (test cod e = 82354-3) Normal [facility] MOLECULAR [id number] 19:47:14* Test Item Value Reference Range Interpretation Comme nts POCT Molecular FluA (test co de = 57327-8) Negative Negative POCT Molecular FluB (test co de = 54733-8) Negative Negative Lab Interpretation (test cod e = 34901-7) Normal [facility] MOLECULAR [id number] 19:47:14* Test Item Value Reference Range Interpretation Comme nts POCT Molecular FluA (test co de = 54411-4) Negative Negative POCT Molecular FluB (test co de = 21851-6) Negative Negative Lab Interpretation (test cod e = 66618-8) Normal [facility] History and Physical Notes Date/Time Note Provider Source 2023-02-25 23:16:40 Formatting of this n ote is different from the original. [facility] Hospitalist Admission H&P Date of [...] prior to CTA head/neck. History obtained from [facility]: "Pt was making lunch approx 1400 when she started to feel dizzy, diaphoretic with chest pressure. [place] like she was going to pass out [...] The superior cerebellar arteries are patent. Both BOOK CLEANER are widely patent. No sizable P-comm is [...] prior to CTA head/neck. History obtained from [facility]: "Pt was making lunch approx 1400 when she started to feel dizzy, diaphoretic with chest pressure. [place] like she was going to pass out [...] The superior cerebellar arteries are patent. Both BOOK CLEANER are widely patent. No sizable P-comm is [...] user?: no Patient will require observation [place] [employer] was verified during stay Roman Mena MD T [facility] Notes Date/Time Note Provider Source 2024-06-18 16:15:00 Images from the original note were not included. Venipuncture collection performed by clean technique on the right anticubitus. Total of 1 attempts were made. Slight pressure and a bandage/dressing were applied to the site(s). The patient experienced no complications. The following specimens were processed according to instructions and sent to [facility] laboratories per lab order on 06/18/2024 : LT BLUE SST 1 RED LAV 1 PPT DK GREEN (LiHep) DK GREEN (SodH) NGO DK BLUE (K2) DK BLUE (S) ACD Blood Culture NIPT/NTD PRESIDENT MEDIA RELATIONS [facility] 2024-05-26 15:38:49 The patient notes that she is still having problems despite taking the PPI twice daily. The patient notes she is also actively losing weight. When seen in clinic her weight was 341lbs and currently the patient notes she is 328lbs. Lets plan for EGD. Niecy Kang M.D. Department of Gastroenterology and Hepatology, PGY-4 [facility] 2024-05-17 12:24:24 Images from the original note were not included. Per ambulatory protocol, medication has been refilled. Name from pharmacy: hydroCHLOROthiazide 25 MG Oral Tablet Will file in chart as: HYDROCHLOROTHIAZIDE 25 mg tablet Sig: Take 1 tablet by mouth in the morning. Original sig: TAKE 1 TABLET BY MOUTH IN THE MORNING Disp: 30 tablet Refills: 0 Start: 05/15/2024 Class: eRX For: Essential hypertension Last ordered: 2 months ago (02/18/2024) by Sabino Simmons NP Last refill: 04/14/2024 Rx #: [id number] Cardiovascular: Misc. Diuretics Iewexv3105/15/2024 09:09 AM Protocol Details Valid encounter within last 12 months K in normal range and within 180 days Na in normal range and within 180 days Cr in normal range and within 180 days To be filled at: [address] Last Refilled: Disp Refills Start End JACI hydroCHLOROthiazide 25 mg tablet 30 tablet 2 02/18/2024 -- No Sig: Take 1 tablet by mouth in the morning. Sent to pharmacy as: hydroCHLOROthiazide 25 mg tablet (ESIDRIX) Class: eRX Route: Oral Order: [id number] Date/Time Signed: 02/18/2024 13:51 E-Prescribing Status: Receipt confirmed by pharmacy (02/18/2024 1:51 PM CDT) Recent Visits Date Type Provider Dept 04/23/24 Office Visit Sabino Simmons NP [facility] Family Medicine 02/18/24 Office Visit Sabino Simmons NP [facility] Family Medicine 11/26/23 Office Visit Sabino Simmons NP [facility] Family Medicine 10/10/23 Office Visit Nabila Pedro MD [facility] -P[facility] Showing recent visits within past 540 days with a meds authorizing provider and meeting all other requirements Future Appointments Date Type Provider Dept 06/07/24 Appointment Sabino Simmons NP [facility] Family Medicine Showing future appointments within next 150 days with a meds authorizing provider and meeting all other requirements Matthew Jaquez RN [facility] 2024-05-04 11:00:00 Images from the original note were not included. Venipuncture collection performed by clean technique on the left anticubitus. Total of 1 attempts were made. Slight pressure and a bandage/dressing were applied to the site(s). The patient experienced no complications. The following specimens were processed according to instructions and sent to [facility] laboratories LT BLUE 1 Lt Green SST 3 RED LAV PPT DK GREEN (L) DK GREEN (S)/// Fibrosure set BLUE,SST & LAV NGO DK BLUE (K2) DK BLUE (S) ACD RST BLOOD CULTURE SET BLOOD CULTURE (AFB AND FUNGUS ) VERIFYNOW Monogram TYPENEX (LAV TOP) ARM BAND ON PATIENT Z plasma preservative tube (call lab for tube)ARUP Vasoactive Intestinal Peptide (call lab for tube)ARUP FEDEX ( NIPT) Thrombotic Risk Reflex Panel URINE URINE CULTURE APTIMA URINE STOOL T [facility] 2024-04-29 14:42:08 Forwarding to provider [facility] 2024-04-26 08:31:27 Red Slater is a 44 year old female Patient called to schedule with PGY for: N83.209 (ICD-10-CM) - Cyst of ovary, unspecified laterality R10.2 (ICD-10-CM) - Pelvic pain Procedures: [id number] - 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 Prescriptions provided. Discussed ibuprofen and to take with food to avoid GI distress. Discussed rotation with tylenol for pain, advised patient that if she uses naproxen to avoid additional use of NSAIDS. Discussed management of anxiety symptoms. Pt verbalized understanding of instructions, pt awake alert oriented, resp reg unlabored, skin w/d, color appropriate for race, moves all ext well, pt encouraged to follow up with pcp and OBGYN. Advised to seek medical attention for new/prolonged/worsening of symptoms. Symptoms addressed. No adverse reaction to meds given in ER noted upon discharge. Pt leaving amb with steady gait, in no apparent distress. Farida Valdez RN [facility] 2024-04-21 05:05:54 Spoke with nurse at [facility] who stated patient has been there multiple times and dx with an ovarian cyst and told to follow up with OB. Pt was given tramadol today in ED and then became aggressive with staff and was CT'd from property. Pt was demanding sx which couldn't be provided and was once again told to follow up with her obgyn. Pt did not have blood work or imaging today, only pain control. T [facility] 2024-04-21 04:46:44 Pt arrived via EMS for abdominal pain. Pt was picked up from [facility] parking lot after being seen and dc'd and then criminally trespassed from [facility]. Pt reports telling them she had a ovarian cyst but they only gave her [place] then made her leave. Pt received a prescription for tramadol but ripped it in half. T Lianet Cabrera RN [facility] 2024-04-16 00:55:00 Registration at bedside T Shy Machado RN [facility] 2024-04-16 00:45:00 Pt medicated as ordered. Vitals rechecked. Educated on interventions. DC instructions reviewed with pt by this RN. Pt verbalized understanding. No reaction to medications given during admission. AOx4, rr even and unlabore on ra, skin warm and dry. DC hold d/t pt wanting to finish IVF. [facility] 2024-04-16 00:38:49 [place] tray provided by for po challenge. [facility] 2024-04-16 00:28:11 Pt refusing toradol. Reports she thinks it "messes with my stomach." Requesting tylenol. Dr Mcduffie notified. At bedside re-assessing pt T [facility] 2024-04-16 00:18:17 Pt back from US. T [facility] 2024-04-15 22:05:16 Pt remains in US. Daksha Crump RN [facility] 2024-04-15 21:32:23 Patient to US via . Meredith Solis RN [facility] 2024-04-15 20:32:55 Patient returned from imaging, patient ambulatory to and from the restroom with steady gait. Urine sample collected. T [facility] 2024-04-15 19:05:00 Received report from Tierra MCKAY. Patient currently in ED green chair accompanied by family member. T [facility] 2024-04-15 18:44:32 Red Slater is a 44 year old female Patient arrives via personal means with complaint of abdominal pain, N/V. Pt was at other ED but did get any relief. Patient is alert and oriented times X 4, even and unlabored respirations visualized. Green pool due to saturation. Tierra Grover RN [facility] 2024-04-13 19:00:00 Pt given printed and verbal [...] in no apparent distress, Shruthi Thorne RN [facility] 2024-04-13 14:10:40 Pt states she woke up this morning having abdominal pain and it got worse throughout the day. Ann Marie Osorio RN [facility] 2024-04-13 10:18:36 Images from the original note were not included. Scanned in folder and placed in provider basket for review. Destinee Henley [facility] 2024-03-23 14:04:39 Spoke with Anabelle at [facility] pharmacy and verbal order was given. No further action needed. Julito Holder LVN [facility] 2024-03-23 13:40:07 Fine to call in verbal ok [facility] 2024-03-23 13:21:21 Images from the original note were not included. Received fax from [facility], Dr. Zuluaga needs to sign and form needs to be faxed back. Please see below: Romina Vazquez [facility] 2024-02-26 16:25:00 Regarding: APPTES Rheum ----- Message [...] getting worse APPT ESC Tala Elise RN [facility] 2024-02-26 16:25:00 Nurse's Note: 4:59 PM Red [...] present > 3 days Protocols used: Shoulder Toxt-MNJBH-CC aTla Elise RN 02/26/2024 5:14 PM [facility] 2024-02-26 16:25:00 FWD to PSS, for appointment. Referral to Rheumatology made 02/19/2024? Fauzia Ch RN [facility] 2024-02-19 13:43:20 Patient is scheduled for testing. Matthew Fernandez [facility] 2024-02-19 12:06:51 Red Slater is a 44 year old female calling to schedule vascular lab US orders. Please assist [phone] (home) Whit Elise [facility] 2024-02-18 15:48:24 Forwarding to provider for review. Matthew Jaquez RN [facility] 2024-02-18 15:38:25 Red Slater is a 44 year old female Calling to see if dr is still going to send medication for sinus and pain today. Pt says the where discussed in appt but not sent Jessica Alvarez [facility] 2024-01-28 11:29:37 Forwarded to provider Rosa Castrejon MA [facility] 2024-01-28 11:17:47 Red Slater is a 44 year old female Pt was seen at the ER last night and prescribed esomeprazole 40 mg. Her insurance will not cover it and she is asking if Sabino Simmons could prescribe an alternative since the ER cannot or suggest an otc. [facility] [address] [place] [id number] Kaya Gonzalez [facility] 2024-01-27 21:50:44 Discussed and reviewed discharge instructions, follow up care with PCP, and prescription medications with patient. Pt verbalizes understanding without questions. Pt assisted to ER lobby with family. Discharged ambulatory, aaox4, breathing even/unlabored, in no acute distress. Shruthi Tucker RN [facility] 2024-01-27 21:20:47 Report received from Malia MCKAY. Mahesh Polanco RN [facility] 2024-01-27 20:04:57 Pt independently ambulatory too rr with UA sample collection cup Malia Mcdonough RN [facility] 2024-01-27 19:36:55 Pt transported to room via stretcher [facility] 2024-01-27 19:23:11 Pt transported via stretcher to CT [facility] 2024-01-27 18:08:00 Red Slater is a 44 [...] established, continuous monitor connected, awaiting further updates. [facility] 2024-01-27 16:14:24 Red Slater is a 44 year old female presents to ED c/o abdominal pain x 4 days reports worsened with oral intake. PMH autoimmune disease. Pt is aox4 with gcs 15 skin warm and dry resp even and unlabored. NAD noted. Pt placed in green pool due to ED saturation. Yanna Alegria RN [facility] 2024-01-27 14:45:49 Forms faxed to [facility] and conformation received-Rosa Castrejon Rosa Castrejon MA [facility] 2024-01-26 09:24:13 Form placed in provider folder for review. Jailyn De La O MA [facility] 2024-01-26 09:14:17 Images from the original note were not included. Nida Gutierrez [facility] 2023-11-28 10:14:23 VIT D 25OH (ng/mL) Date Value 11/26/2023 17 (L) [facility] 2023-11-26 14:15:00 Images from the original note were not included. Venipuncture collection performed by clean technique on the left anticubitus. Total of 1 attempts were made. Slight pressure and a bandage/dressing were applied to the site(s). The patient experienced no complications. The following specimens were processed according to instructions and sent to [facility] laboratories per lab order on 11/26/2023 : LT BLUE SST 4 RED LAV 1 PPT DK GREEN (LiHep) DK GREEN (SodH) NGO DK BLUE (K2) DK BLUE (S) ACD Blood Culture NIPT/NTD [facility] 2023-10-10 15:45:00 Images from the original note were not included. Venipuncture collection performed by clean technique on the right anticubitus. Total of 1 attempts were made. Slight pressure and a bandage/dressing were applied to the site(s). The patient experienced no complications. The following specimens were processed according to instructions and sent to [facility] laboratories per lab order on 10/10/2023 : LT BLUE SST 1 RED LAV 1 PPT DK GREEN (LiHep) LT GREEN (LiHep) NGO DK BLUE (K2) DK BLUE (S) ACD Blood Culture NIPT Urine Urine Culture [facility] 2023-10-03 18:40:11 Pt discharged with diagnosis of muscle strain of chest wall. Printed and verbal instructions reviewed with and given to patient. No new prescriptions given for this visit. Pt verbalized understanding of teaching and recommended follow-up. Denies questions or concerns at this time. Pt ambulatory at discharge. Appears in no apparent distress. No ataxia noted. Waiting in lobby for transportation home. PRESIDENT MEDIA RELATIONS Sayda Arauz RN [facility] 2023-10-03 15:05:23 [facility] states: "Pt started having chest pain 1 hour ago. She was doing laundry. She did have some nausea on and off. Her pain is in her left chest. I gave 324 mg apirin and 1 NTG. 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 MANAGER treatment comments: see triage note Travel and [...] of Present Illness: HPI 43yo morbidly obese FAINA presents today with left sided chest pain [...] ROBOTIC ASSISTED CHOLECYSTECTOMY N/A 04/29/2023 Surgeon: Antoinette Mcclulough MD; Location: [facility] [...] MD -- ED COURSE Diagnosis/Impression as of 10/03/231826 Chest pain, unspecified type Muscle strain of [...] Follow-up: Electronically signed by: Taylor Bynum DO 10/03/231826 [facility] 2023-09-30 14:47:48 Called patient, no answer, left voicemail asking patient to call back to clinic, left clinic phone#. PRESIDENT MEDIA RELATIONS Jailyn Xiong LVN [facility] 2023-09-29 15:45:21 Red Slater is a 43 year old female Patient is calling requesting a sooner appt and states she has a flare up. Please advise. [phone] (home) Future Appointments In 1 month Javi Mcpherson MD [facility] Dermatology, [facility] PRESIDENT MEDIA RELATIONS Nicki Melgar [facility] 2023-04-08 19:32:52 Formatting of this n ote might be different from the original. Pt dc'd home ambulatory with follow up instructions. Pt v/u of dc instructions. Lianet Cabrera RN [facility] 2023-04-08 16:32:31 Formatting of this n ote might be different from the original. Right leg pain for a "few weeks". Sometimes the leg gets numb. Has appt on for symptoms. Rachel Sue RN [facility] 2023-03-14 17:01:16 Formatting of this n ote might be different from the original. Pt discharged home. Given all education and information regarding s/s of worsening condition. Gave info regarding result follow up on my chart and importance of pcp follow up. Pt verbalized understanding. Alert and ambulatory to lobby. Awaiting ride. [facility] 2023-03-14 16:54:36 Formatting of this n ote might be different from the original. Patient to ed via pov. Alert and ambulatory. Vss. C/o runny nose and "feeling feverish" onset yesterday. Denies vomiting. Jacqui Campbell RN [facility] - Health 2023-03-14 16:53:00 Formatting of this n ote is different from the original. [facility] Emergency Department Note Patient Name: Red Slater Date of : 1980 43 year old female Treatment [facility]: [facility] Primary Care Physician: Randy Chauhan Patient Escorted [...] Isaac MD; Location: Labor and Delivery OR Location-[facility] LYMPH NODE,SIMPLE 1985 TUBAL LIGATION N/A 03/27/2021 [...] the patient for COVID. Recommend she is rday-shu-yrszitp cough and cold medications as needed for her symptoms. She remained stable here in the ER and is okay for discharge home with PCP follow-up. She can follow-up with the results of the COVID test on the [employer] britt. Problems Addressed: Upper respiratory tract infection, [...] Electronically signed by: Kassy Gutierrez DO 03/14/231701 [facility] [employer] 2023-03-14 08:28:10 Formatting of this n ote might be different from the original. I called pt to ask about the pantoprazole suspension ordered. No answer, I left VM with my call back number. [facility] [employer] 2023-03-13 18:04:20 Formatting of this n ote might be different from the original. Red Slater is a 43 year old female, [facility] calling regarding rx for pantoprazole. Has a quantity of 1 listed. Please send updated rx. [facility] [address] [place] [id number] Crystal Mujica [facility] 2023-03-13 11:00:00 Addended by: BOAZ DELGADO on: 03/13/2023 04:23 PM Modules accepted: Level of Service [facility] 2023-03-11 20:58:50 Formatting of this n ote [...] in no apparent distress, Mary Zazueta RN [facility] 2023-03-11 17:40:35 Formatting of this n ote might be different from the original. Patient to ED for abdominal pain x 2 weeks. Concerned because she can't eat and lost her prescriptions for UTI she has. Lea Johnson RN [facility] 2023-02-26 19:15:50 Summary: RN DC note Patient [...] assistance. Patient being wheeled off unit by AIRSET MOLDER. Angela Omalley RN [facility] 2023-02-26 16:23:29 Formatting of this n ote [...] Outcome: Progressing as expected Goal: Effective communication 02/26/2023 162 by Angela Omalley RN Outcome: Adequate for discharge 02/26/2023 1446 by Angela Omalley RN Outcome: Progressing as expected Problem: Skin integrity Impaired (Risk or Actual) Goal: Prevention of new skin breakdown 02/26/20231622 by Angela Omalley RN Outcome: Adequate for discharge 02/26/2023 1446 by Angela Omalley RN Outcome: Progressing as expected [facility] 2023-02-26 14:46:53 Formatting of this n [...] new skin breakdown Outcome: Progressing as expected [facility] 2023-02-26 01:37:41 Formatting of this n [...] Outcome: Progressing as expected Ariella Hope RN [facility] 2023-02-25 18:58:38 Formatting of this n ote might be different from the original. Nurse Report Report given to Ariella MCKAY, Chief complaint, assessment findings, infusion verify and orders reviewed. Maria C Tejeda RN T Maria C Tejeda RN [facility] 2023-02-25 17:15:00 Formatting of this n ote might be different from the original. Ambulated to bathroom without distress, pt current on menses [facility] 2023-02-25 15:54:00 Formatting of this n ote might be different from the original. Return to room on groundwater monitoring technician with RN, pt with no neuro deficits, shana dent from, speech clear [facility] 2023-02-25 15:35:00 Formatting of this n ote might be different from the original. To CT on groundwater monitoring technician RN with [facility] 2023-02-25 15:15:00 Formatting of this n ote might be different from the original. After Dr leaving room pt moved her leg stated she has had issues for a couple months with a heavy leg, states basically she just lays in bed all day. [facility] 2023-02-25 15:09:00 Formatting of this n ote might be different from the original. While Dr. Meyers in room assessing pt stating she could not move her left leg, Dr decided to call code stroke, [facility] 2023-02-25 14:40:51 Formatting of this n ote might be different from the original. Pt was making lunch approx 1400 when she started to feel dizzy, diaphoretic with chest pressure. [place] like she was going to pass out and started hyperventilating. [place] like her left side was tingly. Has GI appt on . States she hasn't been able to eat right for a month and it causes her stomach to hurt. Rachel Sue RN [facility] 2023-02-25 14:31:00 Formatting of this n ote is different from the original. [facility] Emergency Department Note Patient Name: Red Slater Date of : 1980 43 year old female Treatment Room: [facility] Primary Care Physician: Randy Chauhan Patient Escorted by: Self [9] Mode of Arrival: EMS - [place] [47] EMS Treatment Prior to ED Arrival: [...] prior to CTA head/neck. History obtained from [facility]: "Pt was making lunch approx 1400 when she started to feel dizzy, diaphoretic with chest pressure. [place] like she was going to pass out [...] The superior cerebellar arteries are patent. Both BOOK CLEANER are widely patent. No sizable P-comm is [...] prior to CTA head/neck. History obtained from [facility]: "Pt was making lunch approx 1400 when she started to feel dizzy, diaphoretic with chest pressure. [place] like she was going to pass out [...] The superior cerebellar arteries are patent. Both BOOK CLEANER are widely patent. No sizable P-comm is [...] GLUCOSE(AGE >30DAYS) URINALYSIS TROPONIN I LIPID PANEL (08924)(TOTAL CHOLESTEROL, TRIGLYCERIDES, HDL) THYROID STIMULATING HORMONE EKG: [...] this a planned re-admission?: No Treatment Team: [facility] [[id number]] Is this patient COVID positive or a [...] Electronically signed by: Bairon Meyers MD 02/25/23 [id number] T [facility]
[2024-06-27] MEDS ORDERED: METOCLOPRAMIDE 10 MG/2mL INJ ONE (01:30)
[2024-06-27] MEDS ORDERED: ONDANSETRON 4 MG/2 ML VIAL ONE (01:30)
[2024-06-27] MEDS ORDERED: NA CHLORIDE 0.9% 1,000 ML ONE (01:30)
[2024-06-27] MEDS ORDERED: MORPHINE 4 MG/ML SYR ONE (01:30)
[2024-06-27 01:45] LABS: PT Prothrombin Time 11.6 SECONDS (9.4-12.5); Protime INR 1.04
[2024-06-27 01:48] LABS: Absolute Basophils 0.1 K/uL (0-0.5); Absolute Eosinophils 0.1 K/uL (0-0.5); Absolute Lymphocytes (CBC) 3.5 K/uL (0.7-4.9); Absolute Monocytes 0.7 K/uL (0.1-1.3); Absolute Neutrophil 6.5 K/uL (1.8-8.0); Basophils % 0.5 % (0-1.3); Eosinophils % 0.9 % (0-4.4); Hematocrit 38.6 % (36.0-45.0); Hemoglobin 13.1 g/dL (12.0-15.0); MCH 28.9 pg (27.0-35.0); MCHC 33.8 g/dL (32.0-36.0); MCV 85.5 fL (80-100); Monocytes % 6.4 % (3.3-12.3); Neutrophils % 60.2 % (41.7-73.7); Platelets 249 thou/uL (152-406); RBC Red Blood Cell Count 4.52 M/uL (3.86-4.86); Red Cell Distribution Width 15.3 % (12.1-15.2)
[2024-06-27 01:58] LABS: ALT/SGPT 30 U/L (13-56); AST/SGOT 21 U/L (15-37); Albumin 2.9 g/dL (3.4-5.0); Albumin/Globulin Ratio 0.7 (1.1-1.8); Alkaline Phosphatase 94 U/L (45-117); Anion Gap 7.3 mEq/L (5.0-15.0); BUN Blood Urea Nitrogen 19 mg/dL (7-18); Bicarbonate 26 mEq/L (21-32); Bilirubin Total 0.3 mg/dL (0.2-1.0); Globulin 4.3 g/dL (2.3-3.5); Glomerular Filtration Rate 88 ml/min (=/>90); Glucose Level 115 mg/dL (74-106); Magnesium 1.9 mg/dL (1.6-2.4); NT PRO-BNP 64 pg/mL (<125); Potassium 3.3 mEq/L (3.5-5.1); Protein, Total 7.2 g/dL (6.4-8.2); Sodium Level 137 mEq/L (136-145); Troponin High Sensitivity 7.3 pg/mL (<58.9)
[2024-06-27 02:19] LABS: Bilirubin Direct < 0.2 mg/dL (0-0.2); Bilirubin Indirect, Calculated 0.1 mg/dL (0.2-0.8)
--- NOTE | 2024-06-27 05:19 | ER ---
Nurse's Notes [facility] Name: Red Slater Age: 44 yrs Sex: Female : 1980 Arrival Date: 06/27/2024 Time: 00:34 Bed 6 Private MD: Diagnosis: Noncardiac chest pain Presentation: 06/27 00:50 Chief complaint: EMS states: left sided chest discomfort, nausea, SOB X1HR. 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 Onset of symptoms was June 27, 2024. 00:50 Method Of Arrival: EMS: [facility] cp4 00:50 Coronavirus screen: Client denies travel out of the [place] in the last 14 days. At this cp4 time, the client does not indicate any symptoms associated with coronavirus-19. Ebola Screen: Patient negative for fever greater than or equal to 101.5 degrees Fahrenheit, and additional compatible Ebola Virus Disease symptoms Patient denies exposure to infectious person. Patient denies travel to an Ebola-affected area in the 21 days before illness onset. No symptoms or risks identified at this time. 00:50 Initial Sepsis Screen: Does the patient meet any 2 criteria? No. Patient's initial cp4 sepsis screen is negative. Does the patient have a suspected source of infection? No. Patient's initial sepsis screen is negative. Risk Assessment: Do you want to hurt yourself or someone else? Patient reports no desire to harm self or others. 00:50 Acuity: PETE 3 cp4 Triage Assessment: 01:08 General: Appears in no apparent distress. uncomfortable, Behavior is calm, cooperative, cp4 appropriate for age. Pain: Complains of pain in chest. EENT: No signs and/or symptoms were reported regarding the EENT system. Neuro: Level of Consciousness is awake, alert, obeys commands, Oriented to person, place, time, situation. Cardiovascular: Patient's skin is warm and dry. Rhythm is sinus rhythm. Respiratory: Airway is patent Respiratory effort is even, unlabored. GI: No signs and/or symptoms were reported involving the gastrointestinal system. : No signs and/or symptoms were reported regarding the genitourinary system. Derm: No signs and/or symptoms reported regarding the dermatologic system. Musculoskeletal: No signs and/or symptoms reported regarding the musculoskeletal system. BEHAVIORAL HEALTH CARE COORDINATOR: 01:08 Not cp4 Historical: - Allergies: 01:08 No Known Allergies; cp4 - PMHx: 01:08 Hypertensive disorder; cp4 - Immunization history:: Adult Immunizations up to date. - Infectious Disease History:: Denies. - Social history:: Smoking status: Patient denies any tobacco usage or history of. Screenin:09 [facility] ED Fall Risk Assessment (Adult) History of falling in the last 3 months, cp4 including since admission No falls in past 3 months (0 pts) Confusion or Disorientation No (0 pts) Intoxicated or Sedated No (0 pts) Impaired Gait No (0 pts) Mobility Assist Device Used No (0 pt) Altered Elimination No (0 pt) Score/Fall Risk Level 0 - 2 = Low Risk Oriented to surroundings, Maintained a safe environment, Assessed \T\ reinforced patient's understanding of fall precautions, Hourly rounding (assess needs \T\ fall precautionary measures) done. Abuse screen: Denies threats or abuse. Nutritional screening: No deficits noted. Tuberculosis screening: No symptoms or risk factors identified. Assessment: 01:09 Reassessment: No changes from previously documented assessment. cp4 03:12 Reassessment: Patient appears in no apparent distress at this time. No changes from vc1 previously documented assessment. Patient and/or family updated on plan of care and expected duration. Pain level reassessed. 04:17 Reassessment: Patient appears in no apparent distress at this time. Patient and/or cp4 family updated on plan of care and expected duration. Pain level reassessed. Patient is alert, oriented x 3, equal unlabored respirations, skin warm/dry/pink. Vital Signs: 00:50 BP 130 / 83; Pulse 77; Resp 18; Temp 98.2; Pulse Ox 100% ; Weight 145.6 kg; Height 5 cp4 ft. 5 in. ; Pain 10/10; 01:53 BP 135 / 84; Pulse 80; Resp 18; Pulse Ox 100% ; cp4 03:12 BP 132 / 79; Pulse 67; Resp 15; Pulse Ox 95% ; vc1 04:17 BP 117 / 81; Pulse 82; Resp 18; Pulse Ox 100% ; cp4 05:32 BP 128 / 94; Pulse 74; Resp 18; Pulse Ox 97% ; cp4 00:50 Body Mass Index 53.42 (145.60 kg, 165.1 cm) cp4 00:50 Pain Scale: Adult cp4 Lenox Coma Score: 05:17 Eye Response: spontaneous(4). Motor Response: obeys commands(6). Verbal Response: sp4 oriented(5). Total: 15. ED Course: 00:37 Patient arrived in ED. jj6 00:51 Doug Sunshine MD is Attending Physician. sp4 01:08 Triage completed. cp4 01:08 Arm band placed on right wrist. Patient placed in an exam room, on a stretcher. cp4 01:09 Bed in low position. Call light in reach. Side rails up X 1. cp4 01:09 No provider procedures requiring assistance completed. cp4 01:35 Jenny Gunter is Primary Nurse. cp4 01:35 Initial lab(s) drawn, by me, sent to lab. Inserted saline lock: 20 gauge in right cp4 antecubital area, using aseptic technique. Blood collected. Flushed with 10 mL NS. 01:40 XRAY Chest (1 view) In Process Unspecified. EDMS 05:18 Marky Ferrari MD is Referral Physician. sp4 05:32 Provided Education on: chest pain. cp4 05:32 intact, bleeding controlled, No redness/swelling at site. Pressure dressing applied. cp4 Administered Medications: 01:35 Not Given (Patient Refused): ondansetron 4 mg IVP once; over 2 minutes cp4 01:35 Not Given (Patient Refused): [id number] mg IVP once; over 1 to 2 minutes cp4 01:35 Drug: NS 0.9% IV 1000 ml IV at 125 ml/hr continuous Route: IV; Rate: 125 ml/hr; Site: cp4 right antecubital; 05:36 Follow up: IV Status: Completed infusion cp4 01:35 Not Given (Patient Refused): morphineor iv 4 mg IVP once over 4 mins cp4 Medication: 01:09 VIS not applicable for this client. cp4 Outcome: 05:18 Discharge ordered by . sp4 05:32 Discharged to home ambulatory, cp4 05:32 Condition: stable 05:32 Discharge instructions given to patient, Instructed on discharge instructions, follow up and referral plans. Demonstrated understanding of instructions, follow-up care, 05:33 Patient left the ED. cp4 Signatures: Dispatcher [employer] Karie Figueroa jj6 Linh Wells RN RN vc1 Doug Sunshine MD MD sp4 Jenny Gunter cp4
--- NOTE | 2024-06-27 05:19 | EDPHYS ---
Physician Documentation [facility] Name: Red Slater Age: 44 yrs Sex: Female : 1980 Arrival Date: 06/27/2024 Time: 00:34 Bed 6 Private MD: ED Physician Doug Sunshine HPI: 06/27 00:51 This 44 yrs old Female presents to ER via EMS with complaints of CHEST sp4 DISCOMFORT. 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 - Infectious Disease History:: Denies. - Social history:: Smoking status: Patient denies any tobacco usage or history of. ROS: 05:17 Constitutional: Negative for fever, chills, and weight loss, positive for chest pain sp4 05:17 All other systems are negative, Exam: 05:15 Constitutional: This is a well developed, well nourished patient who is awake, alert, sp4 and in no acute distress. Head/Face: Normocephalic, atraumatic. Eyes: Pupils equal round and reactive to light, extra-ocular motions intact. Lids and lashes normal. Conjunctiva and sclera are not injected. Cornea within normal limits. Periorbital areas with no swelling, redness, or edema. ENT: Nares patent. No nasal discharge, no septal abnormalities noted. Tympanic membranes are normal and external auditory canals are clear. Oropharynx with no redness, swelling, or masses, exudates, or evidence of obstruction, uvula midline. Mucous membranes moist. Neck: Trachea midline, no thyromegaly or masses palpated, and no cervical lymphadenopathy. Supple, full range of motion without nuchal rigidity, or vertebral point tenderness. Chest/axilla: Normal chest wall appearance and motion. Nontender with no deformity. No lesions are appreciated. Cardiovascular: Regular rate and rhythm with a normal S1 and S2. No gallops, murmurs, or rubs. Normal PMI, no JVD. No pulse deficits. Respiratory: Lungs have equal breath sounds bilaterally, clear to auscultation and percussion. No rales, rhonchi or wheezes noted. No increased work of breathing, no retractions or nasal flaring. Abdomen/GI: Soft, with normal bowel sounds. No distension or tympany. No guarding or rebound. No evidence of tenderness throughout. Back: No spinal tenderness. No costovertebral tenderness. Skin: Warm, dry with normal turgor. Normal color with no rashes, no lesions, and no evidence of cellulitis. MS/ Extremity: Pulses equal, no cyanosis. Neurovascular intact. Full, normal range of motion. Neuro: Awake and alert, GCS 15, oriented to person, place, time, and situation. Cranial nerves II-XII grossly intact. Motor strength 5/5 in all extremities. Sensory grossly intact. Psych: Awake, alert, with orientation to person, place and time. Behavior, mood, and affect are within normal limits 05:16 ECG was reviewed by the Attending Physician. EKG 0056 normal sinus rhythm rate 67, sp4 normal EKG 19:24 EKG 0109 normal sinus rhythm rate 67, normal EKG sp4 Vital Signs: 00:50 BP 130 / 83; Pulse 77; Resp 18; Temp 98.2; Pulse Ox 100% ; Weight 145.6 kg; Height 5 cp4 ft. 5 in. ; Pain 10/10; 01:53 BP 135 / 84; Pulse 80; Resp 18; Pulse Ox 100% ; cp4 03:12 BP 132 / 79; Pulse 67; Resp 15; Pulse Ox 95% ; vc1 04:17 BP 117 / 81; Pulse 82; Resp 18; Pulse Ox 100% ; cp4 05:32 BP 128 / 94; Pulse 74; Resp 18; Pulse Ox 97% ; cp4 00:50 Body Mass Index 53.42 (145.60 kg, 165.1 cm) cp4 00:50 Pain Scale: Adult cp4 Meli Coma Score: 05:17 Eye Response: spontaneous(4). Motor Response: obeys commands(6). Verbal Response: sp4 oriented(5). Total: 15. MDM: 00:53 Medical Screening Exam initiated sp4 03:26 ED course: EXAM: XR Chest, 1 View CLINICAL HISTORY: The patient is 44 years old and is sp4 Female; CHEST PAIN TECHNIQUE: Frontal view of the chest. COMPARISON: No relevant prior studies available. FINDINGS: LUNGS: Unremarkable. No consolidation. PLEURAL SPACE: Unremarkable. No pneumothorax. HEART: The cardiac silhouette is enlarged. MEDIASTINUM: Unremarkable. Normal mediastinal contour. BONES/JOINTS: Unremarkable. No acute fracture. UPPER ABDOMEN: Unremarkable as visualized. IMPRESSION: Cardiomegaly without failure. . 05:17 Differential diagnosis: acute pericarditis, anxiety, coronary artery disease chest wall sp4 pain, congestive heart failure cholecystitis. HEART Score: History: Slightly Suspicious (0), ECG: Normal (0), Age: < or = 45 years (0), Risk Factors: 1 or 2 risk factors (1), Troponin: < or = 1 x Normal Limit (0), Total Score = 1. Data reviewed: vital signs, nurses notes, EMS record, old medical records, lab test result(s), radiologic studies, plain films. ED course: Troponin x 2 is negative, patient stable for discharge home.. 06/27 00:53 Order name: Basic Metabolic Panel; Complete Time: 03:24 sp4 06/27 00:53 Order name: CBC with Diff; Complete Time: 03:24 sp4 06/27 00:53 Order name: LFT's; Complete Time: 03:24 sp4 06/27 00:53 Order name: Magnesium; Complete Time: 03:24 sp4 06/27 00:53 Order name: NT PRO-BNP; Complete Time: 03:24 sp4 06/27 00:53 Order name: PT-INR; Complete Time: 03:24 sp4 06/27 00:53 Order name: Troponin HS; Complete Time: 03:24 sp4 06/27 03:25 Order name: Troponin High Sensitivity; Complete Time: 05:05 sp4 06/27 00:53 Order name: XRAY Chest (1 view) sp4 06/27 00:53 Order name: EKG; Complete Time: 00:54 sp4 06/27 03:25 Order name: EKG; Complete Time: 03:25 sp4 06/27 00:53 Order name: Cardiac monitoring; Complete Time: 01:16 sp4 06/27 00:53 Order name: EKG - Nurse/Tech; Complete Time: 01:16 sp4 06/27 00:53 Order name: IV Saline Lock; Complete Time: 01:36 sp4 06/27 00:53 Order name: Labs collected and sent; Complete Time: 01:36 sp4 06/27 00:53 Order name: O2 Per Protocol; Complete Time: 01:16 sp4 06/27 00:53 Order name: O2 Sat Monitoring; Complete Time: 01:16 sp4 EC:16 Rate is 67 beats/min. Rhythm is regular, Normal Sinus Rhythm. QRS Evant is Normal. VT sp4 interval is normal. QRS interval is normal. QT interval is normal. No Q waves. T waves are Normal. No ST changes noted. Clinical impression: Normal ECG. Interpreted by me. Reviewed by me. Administered Medications: 01:35 Not Given (Patient Refused): ondansetron 4 mg IVP once; over 2 minutes cp4 01:35 Not Given (Patient Refused): [id number] mg IVP once; over 1 to 2 minutes cp4 01:35 Drug: NS 0.9% IV 1000 ml IV at 125 ml/hr continuous Route: IV; Rate: 125 ml/hr; Site: [facility] right antecubital; 05:36 Follow up: IV Status: Completed infusion cp4 01:35 Not Given (Patient Refused): morphineor iv 4 mg IVP once over 4 mins cp4 Disposition Summary: 06/27/24 05:18 Discharge Ordered Problem: new sp4 Symptoms: have improved sp4 Condition: Stable sp4 Diagnosis - Noncardiac chest pain sp4 Followup: sp4 - With: Marky Ferrari MD - When: 7 - 10 days - Reason: Recheck today's complaints Discharge Instructions: - Discharge Summary Sheet sp4 - Nonspecific Chest Pain, Adult, [id number] sp4 Forms: - Patient Portal Instructions sp4 Signatures: Dispatcher [employer] Doug Carlin MD MD sp4 Jenny Gunter 4
--- NOTE | 2024-06-27 06:41 | RAD REPORT ---
EXAM: XR Chest, 1 View CLINICAL HISTORY: The patient is 44 years old and is Female; CHEST PAIN TECHNIQUE: Frontal view of the chest. COMPARISON: No relevant prior studies available. FINDINGS: LUNGS: Unremarkable. No consolidation. PLEURAL SPACE: Unremarkable. No pneumothorax. HEART: The cardiac silhouette is enlarged. MEDIASTINUM: Unremarkable. Normal mediastinal contour. BONES/JOINTS: Unremarkable. No acute fracture. UPPER ABDOMEN: Unremarkable as visualized. IMPRESSION: Cardiomegaly without failure. Electronically signed by: Gina Kumar MD 06/27/2024 02:39 AM [facility] Due to temporary technical issues with the PACS/[employer] reporting system, reports are being deloris d by the in-house radiologist without review as a courtesy to ensure prompt reporting the interpreting radiologist is fully responsible for the content of the report. Transcribed Date/Time: 06/27/2024 6:41 AM
[2024-06-27 08:52] VITALS: TEMP 98.2
[2024-06-27 09:10] VITALS: BP 128/94; O2SAT 97
--- NOTE | 2024-06-27 14:11 | EKG ---
Test Date: 2024-06-27 Test Time: 01:09:31 Prize Jacker: LILIANA MEASUREMENT RESULTS: Intervals: Rate: 67 WI: 172 QRSD: 94 QT: 372 QTc: 393 [place]: P: 26 WI: 172 QRS: 24 T: 17 INTERPRETIVE STATEMENTS: Normal sinus rhythm Normal ECG Compared to ECG 07/15/2008 21:51:42 No significant changes Electronically Signed On 06-27-24 14:10:20 PRIVATE EQUITY ASSOCIATE by Marky Ferrari
== END 2024-06-27 05:33 | disposition home or self-care (01) ==
LOC: ER 00:34
DX: R07.89 Other chest pain (principal); I10 Essential (primary) hypertension
CPT/HCPCS: 96361; 93005; 85025; 80048; 36415; 83735; 85610; 80076; 84484 ×2; 83880; 71045; 96360; 99284; J7030; J2405; J2765

== ENCOUNTER 2025-03-08 11:53 | Emergency (ER) | payer OTHER ==
--- OUTSIDE RECORDS SUMMARY | 2025-03-08 12:10 | XMS REPORT | Continuity of Care Document ---
Author Name Unknown Address [address] [facility]. [address] [place] [address] [facility] [address] [facility] [address] [place] [address] Care Team Providers Care Physician Practice Coordinator Name Role Phone SABINO SIMMONS Primary Care Physician EKTA Hare Attending Clinician GHULAM Fu Attending Clinician Unavailable GLORIA HECK Attending Clinician Unavailable SABINO SIMMONS Attending Clinician UnavailSABINO Rodriguez Attending Clinician Unavailab HEIDI Wylie Attending Clinician Unavailannia Langford MD, Ирина Kenyon Attending Clinic genoveva Heidi Mccullough MD Attending Clinician [phone] ELIGIO STERLING Attending Clinician Unavailable DOC COLLINS Attending Clinician Unavailable JEN BUSH Attending Clinician Unavailable MYA COTA Attending Clinician Unavailable MYA COTA Attending Clinician Unavailable Mya Cota PA-C Attending Clinician [phone] SANKET MCPHERSON Attending Clinician Unavailab le Doctor Unassigned, [facility] Attending Clinician U monicaJen Walker DO Attending Clinician +[phone] Iris [employer] FOUNDER AND PRESIDENT, Sabino Attending Clinician [phone] Shruthi Parra Attending Clinician + [phone] JANI RODRIGUEZ Attending Clinician Unavailable Lab, [facility] Attending Clinician Unavailable Dayton Murdock MD Attending Clinician +[phone] DAYTON MURDOCK Attending Clinician Unavailable LESLYE COPE Attending Clinician UnavailLESLYE Lopez Attending Clinician Unavailannia dia [facility] [place], [facility] Sleep Lab Attending Clinician UnavailRosy Schafer MD Attending Clinician + [phone] ROSY ANTUNEZ Attending Clinician Unavaila ROSY Rene Attending Clinician Unavaila LILIYA Koenig Attending Clinician Unavailable LILIYA COCHRAN Attending Clinician Unavailable Cheri Woo PT Attending Clinician Unava ilable [facility] Attending Clinician Unavailable Sanket Mcpherson MD Attending Clinician +[phone] AMRITA BRANDON Attending Clinician Unavailabl STEPHANIE Irizarry Attending Clinician Unavailab LAITH Alvarez Attending Clinician Unavailable GWENDOLYN MOYER Attending Clinician Clair Eileen Naik Attending Clinician Unavaila ROME Tenorio Attending Clinician Unavaila DIANE Freeman Attending Clinician Unavailable RAI BARBER Attending Clinician Unavailable FITZ ESPARZA Attending Clinician Unavailable FITZ ESPARZA Attending Clinician Unavailable Maria R LOMELI, Gloria Attending Clinician +[phone] MATILDA MCGREGOR Attending Clinician UnavailMatilda Salazar MD Attending Clinician +[phone] CRISTI PANCHAL Attending Clinician Unavailable CRISTI PANCHAL Attending Clinician Unavailable Stan TRAN, Cristi Chau Attending Clinician +[phone] Nadir CHARLES Rabia Attending Clinician +[phone] ROMINA MCDUFFIE Attending Clinician Unavailable ROMINA MCDUFFIE Attending Clinician Unavailable ALLISON MALCOLM Attending Clinician Unavailable ALLISON MALCOLM Attending Clinician Unavailable Allison Fuentes Attending Clinician +[phone] SIMONA LOW Attending Clinician Unav ailable GAYATHRI MALISSA Attending Clinician Unavailab LIANET Aldana Attending Clinician Unavailable LIANET MCKEON Attending Clinician Unavailable RABIA KAUR Attending Clinician Unavailable DENY RODRIGUEZ Attending Clinician Unavailable Niecy Kang MD Attending Clinician [phone] 2, [facility] Attending Clinician Unavailable ROSA LEMUS Attending Clinician Unavailable Delilah TARN, Selina Attending Clinician +[phone] Jared Sapp MD Attending Clinician + [phone] JARED SAPP Attending Clinician Unavaila SAURAV Rodriguez Attending Clinician Unavailable SAURVA LOJA Attending Clinician Unavailable Saurav Loja MD Attending Clinician +[phone] Rosa Leo Attending Clinician +[phone] IWONA MCDUFFIE Attending Clinician Unavailable IWONA MCDUFFIE Attending Clinician Unavailable Iwona Mcduffie MD Attending Clinician +[phone] NADIYA BELLAMY Attending Clinician Unavailable NADIYA BELLAMY Attending Clinician Unavailable Nadiya Bellamy NP Attending Clinician +[phone] LEA BARRETO Attending Clinician Unavail able Stephanie Thomas MD Attending Clinician +[phone] Tala Elise RN Attending Clinician Unavaila KINSEY Ross Attending Clinician Unavailable KINSEY MALCOLM Attending Clinician Unavailable Nissa Velasco PTA Attending Clinician Unavail able Gabrielle Medellin PT Attending Clinician UnavailLeslye Lopez MD Attending Clinician +[phone] Romina Baker LCSW Attending Clinician +[phone] 2, [facility] Attending Clinician Unavailable DANIA BETANCUR Attending Clinician Unavaila ble Doctor Unassigned, [facility] Attending Clinician U navailable Pcp-Lab Attending Clinician Unavailable Gypsy LOMELI, Dania Spear Attending Clinician + [phone] Mayela LOMELI, Nabila Attending Clinician + [phone] KINSEY PARKER Attending Clinician Unavailab bettye Pena MD, Alice Attending Clinician +[phone] Kinsey Parker DO Attending Clinician [phone] Priscilla LOMELI, Sanket Wallace Attending Clinician + [phone] ALICE PENA Attending Clinician Unavailable Tamie RN, Lolita Larios Attending Clinician + [phone] Umm FLORES, Rai Attending Clinician + [phone] Eamon LOMELI, Erika Bergman Attending Clinician +[phone] Sadia LOMELI, Heidi Attending Clinician +- [phone] Jennifer LOMELI, Marcos Attending Clinician +[phone] KATE HILTON Attending Clinician Unavailab FARIHA Nesbitt Attending Clinician Unavail able FARIHA YOUNGBLOOD Attending Clinician Unavail able KASSY GUTIERREZ Attending Clinician Unavailab Kassy Lang DO Attending Clinician +[phone] Isha Geller Attending Clinician +[phone] Boaz Guerrero MD Attending Clinician +[phone] BOAZ GUERRERO Attending Clinician Unavailable ZEYNEP MITCHELL Attending Clinician Unavailable Zeynep Madsen Attending Clinician [phone] JUSTEN PATTON Attending Clinician Unavailable Bairon Meyers MD Attending Clinician + [phone] Justen Patton DO Attending Clinician +[phone] ZEV FERNÁNDEZ Attending Clinician Unavailable Rasta Anne DO Attending Clinician + [phone] Osorio Flanagan MD Attending Clinician + [phone] OSORIO FLANAGAN Attending Clinician Unavailable Only, Ang Db Test Attending Clinician UnavailRai Echeverria PA-C Attending Clinician +[phone] RAI ADAMSON Attending Clinician Unavailable SAYDA ZAFAR Attending Clinician Unavailable Sayda Bello Attending Clinician +- [phone] UNKNOWN, ATTENDING Attending Clinician Unavailab Clarice Orta MD Attending Clinician +[phone] BRANDON RIVERA Attending Clinician UnavailBrandon Lizarraga MD Attending Clinician +- [phone] Unknown, Attending Attending Clinician Unavailab Sherry Del Toro MD Attending Clinician +[phone] SCARLET CUELLAR Attending Clinician Unavailable SELINA MAZARIEGOS Attending Clinician Unavailable CASSIUS THOMAS Attending Clinician Unavailable CAROLYN ELLIS Attending Clinician Unavailab bettye Vasquez, [facility] Dermatology Nurse Attending Clinician Unavailable Carolyn Ellis MD Attending Clinician +[phone] Elvi Maya MD Attending Clinician +[phone] ELVI MAYA Attending Clinician Unavailable Radiology Attending Clinician Unavailable RADIOLOGY Attending Clinician Unavailable Sherry Natarajan Attending Clinician +[phone] SHERRY CURRY Attending Clinician Unavailable SIENNA RUFF Attending Clinician Unavailable Selina Arechiga Attending Clinician +[phone] Visit/Fp, [facility] Nurse Attending Clinician Un available ABRAM FERRELL Attending Clinician Unavaillarisa Ferrell MD, Abram Brooks Attending Clinician +[phone] Herminio Isaac MD Attending Clinician +[phone] Cristina Parra PA-C Attending Clinician + [phone] Nayeli MCKAY, Kala Renner Attending Clinician Clair CRISTINA Sweeney Attending Clinician Unavailable DASH MALCOLM Attending Clinician Unavailable Dash Dow S Attending Clinician [phone] Ondina Weaver MD Attending Clinician +[phone] ONDINA WEAVER Attending Clinician Unavailable Lab, Ang-chp Attending Clinician Unavailable Payam Watt Attending Clinician + [phone] PAYAM VILLEGAS Attending Clinician Unavailab Franny Horta Attending Clinician +[phone] Ultrasound, Ang-[facility] Attending Clinician Unavaila Darline Stone Attending Clinician Unavailabl e 1, [facility] Mf Usg Room Attending Clinician Unavaillarisa Mcneil MD, Conrado Larios Attending Clinician +[phone] [facility] Attending Clinician Unavailable Jared Bay MD Attending Clinician +[phone] JARED BAY Attending Clinician Unavailable Maximus Villavicencio DO Attending Clinician Fellow, Gal [facility] Rmchp Mfm Attending Clinician Un available Leslie Saavedra MD Attending Clinician +[phone] LESLIE SAAVEDRA Attending Clinician Unavailable LESLIE SAAVEDRA Attending Clinician Unavailable Juanjose Ross DO Attending Clinician +[phone] Sienna LOMELI, Matthew Attending Clinician +[phone] MATTHEW EL Attending Clinician Unavailable Jean-Paul MCKAY, Glenna Attending Clinician UnavailTamiak Ch MD, Gwendolyn Attending Clinician + [phone] EKTA ESPINOZA Admitting Clinician UnaONDINA Lombardo Admitting Clinician Unavailable MATILDA MCGREGOR Admitting Clinician UnavailMatilda Salazar MD Admitting Clinician +[phone] CRISTI PANCHAL Admitting Clinician Unavailable GLORIA HECK Admitting Clinician Unavailable YAGIOVANA LÓPEZLI S Admitting Clinician Unavailable IWONA MCDUFFIE Admitting Clinician Unavailable NADIYA BELLAMY Admitting Clinician Unavailable KINSEY MALCOLM Admitting Clinician Unavailable DANIA BETANCUR Admitting Clinician Unavaila KINSEY House Admitting Clinician Unavailab ALICE San Admitting Clinician Unavailable HEIDI MCCULLOUGH Admitting Clinician UnavailHeidi Lopez MD Admitting Clinician [phone] KATE HILTON Admitting Clinician Unavailab JUSTEN Perez Admitting Clinician Unavailable Justen Patton DO Admitting Clinician +[phone] YAJEREMY LÓPEZKILI S Admitting Clinician Unavailable SHERRY CURRY Admitting Clinician Unavailable ABRAM FERRELL Admitting Clinician UnavailAbram Bell MD Admitting Clinician Hakeem LOMELI, Ondina Pascual Admitting Clinician Payers Payer Name Policy Type Policy Number Effective Date Expirati on Date Source [facility] STAR [id number] 2022 00:00:00 [facility] STAR [id number] 2025 00:00:00 Problems Condition Name Condition Details Condition Category Status Onset Date Resolution Date Last Treatment Date Treating Clinician Comments Source Hepatic steatosis Hepatic steatosis Disease Active 01-03 00:00: 00 [facility] KERA (obstructi ve sleep apnea) KERA (obstructi ve sleep apnea) Disease Active 01-03 00:00: 00 [facility] Enlarged heart Enlarged heart Disease Active 2023-07 00:00: 00 [facility] Palpitatio ns Palpitatio ns Disease Active 2023-07 00:00: 00 [facility] Anxiety Anxiety Disease Active 2023-07 2 00:00: 00 [facility] Unintentio nal weight loss Unintentio nal weight loss Disease Active 2023-07 0-30 00:00: 00 [facility] Gastroesop hageal reflux disease, unspecifie d whether esophagiti s present Gastroesop hageal reflux disease, unspecifie d whether esophagiti s present Disease Active 2023-07 0-30 00:00: 00 [facility] 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 Disease Active 2022-07 0- 00:00: 00 [facility] Epigastric pain Epigastric pain Disease Active 9- 00:00: 00 [facility] Loss of weight Loss of weight Disease Active 8- 00:00: 00 [facility] Nausea Nausea Disease Active 8- 00:00: 00 [facility] Abdominal pain, generalize d Abdominal pain, generalize d Disease Active 8- 00:00: 00 [facility] Loss of weight Loss of weight Disease Active 8-17 00:00: 00 [facility] Atypical chest pain Atypical chest pain Disease Active 8 00:00: 00 [facility] Essential hypertensi on Essential hypertensi on Disease Active 8- 00:00: 00 [facility] Dyslipidem ia Dyslipidem ia Disease Active 8 00:00: 00 [facility] Elevated LFTs Elevated LFTs Disease Active 8 00:00: 00 [facility] Weakness Weakness Disease Active 8 00:00: 00 [facility] 38 weeks gestation of 38 weeks gestation of Disease Active 03-27 00:00: 00 [facility] Multiparit y Multiparit y Disease Active 03-27 00:00: 00 [facility] 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 03-27 00:00: 00 [facility] Advanced maternal age in multigravi da, third trimester Advanced maternal age in multigravi da, third trimester Disease Active 03-27 00:00: 00 [facility] Abnormal glucose tolerance test (GTT) during , antepartum Abnormal glucose tolerance test (GTT) during , antepartum Disease Active 03-27 00:00: 00 [facility] Abnormal glucose tolerance test (GTT) during , antepartum Abnormal glucose tolerance test (GTT) during , antepartum Disease Active 03-27 00:00: 00 [facility] Urinary tract infection in mother during third trimester of Urinary tract infection in mother during third trimester of Disease Active 02-14 00:00: 00 [facility] Preexistin g hypertensi on complicati ng , antepartum Preexistin g hypertensi on complicati ng , antepartum Disease Active 02-14 00:00: 00 [facility] Rash Rash Disease Active 10-19 00:00: 00 [facility] Bullous disorder Bullous disorder Disease Active 10-19 00:00: 00 [facility] Irregular menstrual cycle Irregular menstrual cycle Disease Active 09-29 00:00: 00 [facility] Vaginitis and vulvovagin itis Vaginitis and vulvovagin itis Disease Active 09-29 00:00: 00 Overview: Formattin g of this note might be different from the original. ICD10 Diagnosis Term Quality Control Analyst Utility [facility] Need for prophylact ic vaccinatio n with combined diphtheria -tetanus-p ertussis (DTP) vaccine Need for prophylact ic vaccinatio n with combined diphtheria -tetanus-p ertussis (DTP) vaccine Disease Active 09-29 00:00: 00 [facility] Morbid obesity Morbid obesity Disease Active 09-29 00:00: 00 [facility] AN (acanthosi s nigricans) AN (acanthosi s nigricans) Disease Active 09-29 00:00: 00 [facility] Headache Headache Disease Active 09-29 00:00: 00 Overview: Formattin g of this note might be different from the original. ICD10 Diagnosis Term Quality Control Analyst Utility [facility] Morbid obesity with BMI of 60.0-69.9, adult Morbid obesity with BMI of 60.0-69.9, adult Disease Active 09-29 00:00: 00 [facility] Allergies, Adverse Reactions, Alerts Allergy Name Allergy Type Status Severity Reaction(s) Onset Date Inactive Date Treating Clinician Comments Source NO KNOWN ALLERGIE S Drug Class Active [facility] Social History Social Habit Start Date Stop Date Quantity Comments [facility] Not [facility] Alcoholic beverage intake 2024-10-19 00:00:00 2024-10-19 00:00:00 Ex-drinker (finding) [facility] History of Social function 2024-10-05 00:00:00 2024-10-05 00:00:00 [facility] Alcohol intake 2023-11-26 00:00:00 2023-11-26 00:00:00 Ex-drinker (finding) [facility] Tobacco use and exposure 2023-02-25 00:00:00 2023-02-25 00:00:00 Former smokeless tobacco user [facility] Exposure to SARS-CoV-2 (event) 2022-05-11 00:00:00 2022-05-21 13:28:00 Not sure [facility] History of tobacco use 2011-12-27 00:00:00 User of smokeless tobacco [facility] Sex assigned at 1980 00:00:00 1980 00:00:00 [facility] Smoking Status Start Date Stop Date Source Ex-smoker 2023-02-25 00:00:00 2023-02-25 [facility] Ordered Medication Name Filled Medication Name Start Date Stop Date Current Medication? Ordering Clinician Indication Dosage Frequency Signature (SIG) Comments Components Source triamcinolo ne acetonide (KENALOG) injection 40 mg 02-17 19:00: 00 02-17 19:06 :00 No [id number] 40mg 40 mg, Intra-martha cular, ONCE, 1 dose, On Fri02/17/25 at 1400, Routine [facility] ketorolac (TORADOL) injection 30 mg 01-11 22:45: 00 01-11 22:08 :00 No [id number] 30mg 30 mg, Intramuscu lar, ONCE, 1 dose, On Fri01/11/25 at 1745, Routine [facility] methylPREDN ISolone acetate (DEPO-MEDRO L) injection 80 mg 01-11 22:45: 00 01-11 22:07 :00 No [id number] 80mg 80 mg, Intramuscu lar, ONCE, 1 dose, On Fri01/11/25 at 1745, Routine [facility] montelukast 10 mg tablet 01-11 00:00: 00 Yes [id number] 10mg Take 1 tablet by mouth at bedtime. [facility] TRIAMCINOLO NE ACETONIDE 0.1 % cream 01-03 00:00: 00 Yes [id number] APPLY TO AFFECTED AREAS TWO TIMES A DAY [facility] ergocalcife rol, vitamin d2, 1,250 mcg (50,000 unit) capsule 12-27 00:00: 00 Yes [id number] 24179Y Take 1 capsule by mouth weekly. [facility] barium sulfate (LIQUID E-Z PAQUE) 60 % (w/v) oral suspension 70 mL 11-19 16:45: 00 11-19 17:24 :00 No [id number] 70mL 70 mL, Oral, ONCE, 1 dose, On Fri11/19/24 at 1145, Routine [facility] barium sulfate (E-Z-HD BARIUM) 98 % oral suspension 80 mL 11-19 16:30: 00 11-19 17:23 :00 No [id number] 80mL 80 mL, Oral, ONCE, 1 dose, On Fri11/19/24 at 1130, Routine [facility] sod bicarb-citr ic ac-simeth (E-Z-GAS II) 2.21-1.53 gram/4 gram packet 1 Packet 11-19 16:30: 00 11-19 17:24 :00 No [id number] 1{packe t} 1 Packet, Oral, ONCE, 1 dose, On Fri11/19/24 at 1130, Routine [facility] triamcinolo ne acetonide (KENALOG) injection 40 mg 11-09 16:45: 00 11-09 16:27 :00 No [id number] 40mg 40 mg, Intra-martha cular, ONCE, 1 dose, On Fri11/09/24 at 1145, Routine [facility] chlorhexidi ne 4 % external liquid 10-19 00:00: 00 Yes [id number] Apply to area(s) daily. Use in shower. [facility] hydroquinon e 4 % cream 10-19 00:00: 00 Yes [id number] Apply to area(s) at bedtime. [facility] fluocinonid e 0.05 % cream 10-19 00:00: 00 Yes [id number] Apply to area(s) 2 (two) times daily as needed for Rash. Avoid on face, armpits, and groin. Stop when clear, restart if rash returns. [facility] clindamycin 1 % gel 10-19 00:00: 00 01-12 00:00 :00 No [id number] Apply to affected area(s) 2 (two) times daily. [facility] doxycycline monohydrate 100 mg capsule 10-19 00:00: 00 01-12 00:00 :00 No [id number] 100mg Take 1 capsule by mouth in the morning and 1 capsule in the evening. [facility] ergocalcife rol, vitamin d2, (VITAMIN D2) 1,250 mcg (50,000 unit) capsule 10-13 00:00: 00 Yes [id number] 41089Q Take 1 capsule by mouth weekly. [facility] methylPREDN ISolone acetate (DEPO-MEDRO L) injection 80 mg 10-12 20:45: 00 10-12 20:28 :00 No [id number] 80mg 80 mg, Intramuscu lar, ONCE, 1 dose, On Fri10/12/24 at 1545, Routine [facility] ketorolac (TORADOL) injection 30 mg 10-12 20:45: 10-12 20:27 :00 No [id number] 30mg 30 mg, Intramuscu lar, ONCE, 1 dose, On Fri10/12/24 at 1545, Routine [facility] TRIAMCINOLO NE ACETONIDE 0.1 % cream 10-06 00:00: 00 01-03 00:00 :00 No [id number] APPLY TO AFFECTED AREAS TWO TIMES A DAY [facility] diclofenac 75 mg EC tablet 10-05 00:00: 00 01-12 00:00 :00 No [id number] 75mg Take 1 tablet by mouth in the morning and 1 tablet in the evening. Take with meals. [facility] triamcinolo ne acetonide (KENALOG) injection 40 mg 08-11 21:15: 00 08-11 20:23 :00 No [id number] 40mg 40 mg, Intra-martha cular, ONCE, 1 dose, On Fri08/11/24 at 1515, Routine [facility] triamcinolo ne acetonide (KENALOG) injection 40 mg 08-11 21:00: 00 08-11 20:23 :00 No [id number] 40mg 40 mg, Intra-martha cular, ONCE, 1 dose, On Fri08/11/24 at 1500, Routine [facility] iohexol (OMNIPAQUE 350 BULK-500 mL) injection 93 mL 08-11 01:30: 00 08-11 01:30 :00 No [id number] 93mL 93 mL, Intravenou s, ONCE, 1 dose, On Fri08/10/24 at 1930, Routine [facility] hydroCHLORO thiazide 25 mg tablet 08-11 00:00: 00 08-11 00:00 :00 No [id number] 25mg Take 1 tablet by mouth in the morning. [facility] NaCl 0.9% (NS) bolus infusion 1,000 mL 08-10 22:15: 00 08-11 03:02 :00 No 1000mL at 999 mL/hr, 1,000 mL, IV Infusion, ONCE, 1 dose, On Fri08/10/24 at 1615, MARGARITA [facility] ondansetron (ZOFRAN (PF)) injection 8 mg 08-10 21:45: 00 08-11 01:19 :00 No 8mg 8 mg, Slow IV Push, ONCE, 1 dose, On Fri08/10/24 at 1545, Administer over 2-5 Minutes, 4 mL [facility] acetonide 0.1 % cream 08-10 00:00: 00 Yes [id number] Apply to area(s) 2 (two) times daily. [facility] meclizine 25 mg tablet 08-10 00:00: 00 01-12 00:00 :00 No [id number] 25mg Take 1 tablet by mouth 3 (three) times daily as needed for Dizziness or Nausea. [facility] loperamide (IMODIUM A-D) 2 mg capsule 08-10 00:00: 00 01-12 00:00 :00 No [id number] 2mg Take 1 capsule by mouth 3 (three) times daily as needed for Diarrhea. [facility] ondansetron 4 mg disintegrat ing tablet 08-10 00:00: 00 01-12 00:00 :00 No [id number] 4mg Take 1 tablet by mouth every 8 (eight) hours as needed for Nausea and Vomiting (N/V). [facility] hydroCHLORO thiazide 25 mg tablet 2023-07 00:00: 00 08-11 00:00 :00 No [id number] 25mg Take 1 tablet by mouth in the morning. [facility] sulfur hexafluorid e microsphr (LUMASON) injection 5 mL 2023-07 22:15: 00 07-13 22:15 :00 No [id number] 5mL 5 mL, Intravenou s, ONCE, 1 dose, On Fri07/13/24 at 1615, Routine [facility] methylPREDN ISolone acetate (DEPO-MEDRO L) injection 40 mg 2023-07 22:15: 00 06-18 21:36 :00 No [id number] 40mg 40 mg, Intramuscu lar, ONCE, 1 dose, On Fri06/18/24 at 1615, Routine [facility] cefTRIAXone (ROCEPHIN) injection 1,000 mg 2023-07 22:00: 00 06-18 21:36 :00 No [id number] 1000mg 1,000 mg, Intramuscu lar, ONCE, 1 dose, On 11/22/24 at 1600, MARGARITA, Reason for Anti-Infec tive: Documented Infection, Documented Infection Site: Respirator y, Duration of Therapy: Other (see Comments) [facility] dexamethaso ne (DECADRON) injection 8 mg 2023-07 22:00: 00 06-18 21:18 :15 No [id number] 8mg [facility] lidocaine 5 % ointment 2023-07 00:00: 00 Yes Apply to area(s) 2 (two) times daily. [facility] diclofenac sodium 1 % gel 2023-07 00:00: 00 07-02 00:00 :00 No [id number] Take 2-4 grams three times a day as needed for pain [facility] hydroCHLORO thiazide 25 mg tablet 2023-07 00:00: 00 07-15 00:00 :00 No [id number] 25mg Take 1 tablet by mouth in the morning. [facility] HYDROCHLORO THIAZIDE 25 mg tablet 2023-07 00:00: 00 06-16 00:00 :00 No [id number] 25mg TAKE 1 TABLET BY MOUTH IN THE MORNING [facility] SUCRALFATE, BULK, MISC 2023-07 0 09:17: 20 07-02 00:00 :00 No Take by mouth. [facility] pantoprazol e 40 mg EC tablet 2023-07 008 00:00: 00 Yes [id number] 40mg Take 1 tablet by mouth in the morning and 1 tablet in the evening. [facility] dicyclomine 20 mg tablet 2023-07 0-04 00:00: 00 07-02 00:00 :00 No [id number] 20mg Take 1 tablet by mouth 4 (four) times daily as needed for Abdominal pain. [facility] cefTRIAXone (ROCEPHIN) injection 1,000 mg 04-23 15:45: 00 04-23 15:16 :00 No [id number] 1000mg 1,000 mg, Intramuscu lar, ONCE, 1 dose, On Fri04/23/24 at 1045, MARGARITA, Reason for Anti-Infec tive: Documented Infection, Documented Infection Site: Urine, Duration of Therapy: Other (see Comments) [facility] DULoxetine 30 mg capsule 04-23 00:00: 00 07-02 00:00 :00 No [id number] 30mg Take 1 capsule by mouth in the morning. [facility] ketorolac (TORADOL) injection 60 mg 04-21 11:30: 00 04-21 10:32 :00 No 60mg 60 mg, Intramuscu lar, ONCE, 1 dose, On Fri04/21/24 at 0630, Routine [facility] ondansetron (ZOFRAN-ODT ) disintegrat ing tablet 8 mg 04-21 11:15: 00 04-21 10:32 :00 No 8mg 8 mg, Oral, ONCE, 1 dose, On Fri04/21/24 at 0615, MARGARITA [facility] ondansetron 8 mg disintegrat ing tablet 04-21 00:00: 00 07-02 00:00 :00 No [id number] 8mg Take 1 tablet by mouth every 8 (eight) hours as needed for Nausea and Vomiting (N/V). [facility] ketorolac 10 mg tablet 04-21 00:00: 00 04-23 00:00 :00 No [id number] 10mg Take 1 tablet by mouth every 6 (six) hours as needed for Pain (scale 7-10). [facility] sumatriptan 100 mg tablet 04-19 00:00: 00 07-02 00:00 :00 No [id number] 100mg Take 1 tablet by mouth as needed for Migraine (Max of 2 tablets/da y.). [facility] topiramate 25 mg tablet 04-19 00:00: 00 05-17 04:59 :00 No [id number] Take 1 tablet by mouth 2 (two) times daily for 7 days, THEN 2 tablets 2 (two) times daily for 21 days. [facility] acetaminoph en (TYLENOL) tablet 1,000 mg 04-16 05:45: 00 04-16 05:47 :00 No 1000mg 1,000 mg, Oral, ONCE, 1 dose, On Fri04/16/24 at 0045, [facility] diphenhydrA MINE (BENADRYL) injection 25 mg 04-16 01:15: 00 04-16 02:09 :00 No 25mg 25 mg, Slow IV Push, ONCE, 1 dose, On Fri04/15/24 at 2014, STAT [facility] famotidine (PEPCID (PF)) injection 20 mg 04-16 01:15: 00 04-16 02:09 :00 No 20mg 20 mg, Slow IV Push, ONCE, 1 dose, On Fri04/15/24 at 2014, [facility] ondansetron (ZOFRAN (PF)) injection 4 mg 04-16 01:15: 04-16 02:08 :00 No 4mg 4 mg, Slow IV Push, ONCE, 1 dose, On Fri04/15/24 at 2014, [facility] acetaminoph en (TYLENOL) tablet 650 mg 04-16 01:15: 00 04-16 02:12 :00 No 650mg 650 mg, Oral, ONCE, 1 dose, On Fri04/15/24 at 2014, [facility] haloperidol lactate (HALDOL) injection 1.25 mg 04-16 01:15: 00 04-16 02:10 :00 No 1.25mg 1.25 mg, Intravenou s, ONCE, 1 dose, On Fri04/15/24 at 2014, Routine [facility] NaCl 0.9% (NS) bolus infusion 1,000 mL 04-16 01:15: 00 04-16 05:39 :00 No 1000mL at 999 mL/hr, 1,000 mL, IV Infusion, ONCE, 1 dose, On Fri04/15/24 at 2015, STAT [facility] ketorolac (TORADOL) injection 15 mg 04-14 00:15: 00 04-13 23:29 :00 No 15mg 15 mg, Slow IV Push, ONCE, 1 dose, On Fri04/13/24 at 1915, Routine [facility] cefTRIAXone (ROCEPHIN) 1,000 mg in NaCl 0.9% (NS) 100 mL MINI-BAG 04-13 23:15: 00 04-13 23:59 :00 No 1000mg 1,000 mg, IV Piggyback, ONCE, 1 dose, On Fri04/13/24 at 1815, Administer over 30 Minutes, 100 mL, Reason for Anti-Infec tive: Documented Infection, Documented Infection Site: Urine, Duration of Therapy: Once (ED) [facility] iopamidol (ISOVUE 370-500 mL) injection 90 mL 04-13 22:00: 00 04-13 22:00 :00 No [id number] 90mL 90 mL, Intravenou s, ONCE, 1 dose, On Fri04/13/24 at 1700, Routine [facility] ketorolac (TORADOL) injection 30 mg 04-13 20:45: 00 04-13 20:30 :00 No 30mg 30 mg, Slow IV Push, ONCE, 1 dose, On Fri04/13/24 at 1545, Routine [facility] dicyclomine (BENTYL) injection 20 mg 04-13 20:30: 00 04-13 20:30 :00 No 20mg 20 mg, Intramuscu lar, ONCE NOW, 1 dose, On Fri04/13/24 at 1530, Routine [facility] pantoprazol e (PROTONIX) injection 40 mg 04-13 20:30: 00 04-13 20:30 :00 No 40mg 40 mg, Slow IV Push, ONCE, 1 dose, On Fri04/13/24 at 1530 [facility] ketorolac 10 mg tablet 04-13 00:00: 00 07-02 00:00 :00 No [id number] 10mg Take 1 tablet by mouth every 6 (six) hours as needed for Pain (scale 4-6), Pain (scale 7-10) or Pain (scale 1-3). [facility] cefdinir 300 mg capsule 04-13 00:00: 00 04-21 04:59 :00 No [id number] 300mg Take 1 capsule by mouth in the morning and 1 capsule in the evening. Do all this for 7 days. [facility] famotidine 40 mg tablet 03-22 00:00: 00 04-13 00:00 :00 No [id number] 40mg Take 1 tablet by mouth in the morning. [facility] azelastine 137 mcg (0.1 %) nasal spray 03-22 00:00: 00 04-13 00:00 :00 No [id number] 1{spray } Use 1 Marlette in each nostril in the morning and 1 Marlette in the evening. Use Capevo coupon if bender is high [facility] mupirocin 2 % ointment 03-22 00:00: 00 04-13 00:00 :00 No [id number] Apply inside both nasal cavities with clean finger 2x daily after using saline spray/Alfonso med sinus rinse with distilled water. Continue regularly for 6 weeks, then as needed [facility] naproxen 500 mg tablet 02-19 00:00: 00 04-13 00:00 :00 No [id number] 500mg Take 1 tablet by mouth 2 (two) times daily with meals as needed for Pain (scale 4-6). [facility] cetirizine 10 mg tablet 02-19 00:00: 00 04-13 00:00 :00 No [id number] 10mg Take 1 tablet by mouth at bedtime as needed for Allergies or Runny nose. [facility] amoxicillin -clavulanat e (AUGMENTIN) 875-125 mg per tablet 02-19 00:00: 00 02-27 04:59 :00 No [id number] 1{tbl} Take 1 tablet by mouth in the morning and 1 tablet in the evening. Do all this for 7 days. [facility] ketorolac (TORADOL) injection 60 mg 02-17 19:45: 00 02-17 19:08 :00 No [id number] 60mg 60 mg, Intramuscu lar, ONCE, 1 dose, On Fri02/18/24 at 1445, Routine [facility] hydroCHLORO thiazide 25 mg tablet 02-17 00:00: 00 05-17 00:00 :00 No [id number] 25mg Take 1 tablet by mouth in the morning. [facility] pantoprazol e 40 mg EC tablet 02-17 00:00: 00 04-13 00:00 :00 No [id number] 40mg Take 1 tablet by mouth in the morning. [facility] sucralfate 1 gram tablet 02-17 00:00: 00 04-13 00:00 :00 No 1g Take 1 tablet by mouth before meals and at bedtime. [facility] ergocalcife rol, vitamin d2, (VITAMIN D2) 1,250 mcg (50,000 unit) capsule 02-17 00:00: 00 04-13 00:00 :00 No [id number] Take 1 capsule by mouth weekly. [facility] famotidine 40 mg tablet 01-30 00:00: 00 02-17 00:00 :00 No [id number] 40mg Take 1 tablet by mouth in the morning. [facility] diphenhydrA MINE:lidoca ine 2% viscous:maa lox 1:1:1 ([facility]) oral suspension 15 mL 01-27 02:15: 00 01-27 02:45 :00 No 15mL 15 mL, Oral, ONCE, 1 dose, On Fri01/27/24 at 2115, Routine [facility] ketorolac (TORADOL) injection 30 mg 01-27 00:30: 00 01-26 23:57 :00 No 30mg 30 mg, Slow IV Push, ONCE, 1 dose, On Fri01/27/24 at 1930, Routine [facility] iopamidol (ISOVUE 370-500 mL) injection 125 mL 01-27 00:29: 00 01-27 00:29 :00 No [id number] 125mL 125 mL, Intravenou s, ONCE, 1 dose, On Fri01/27/24 at 1945, Routine [facility] NaCl 0.9% (NS) bolus infusion 1,000 mL 01-26 22:15: 00 01-27 02:50 :00 No 1000mL at 999 mL/hr, 1,000 mL, IV Piggyback, ONCE, 1 dose, On Fri01/27/24 at 1715, STAT [facility] proMETHazin e 25 mg tablet 01-26 00:00: 00 04-13 00:00 :00 No [id number] 25mg Take 1 tablet by mouth every 6 (six) hours as needed for Nausea and Vomiting (N/V). [facility] sucralfate 1 gram tablet 01-26 00:00: 00 02-17 00:00 :00 No [id number] 1g Take 1 tablet by mouth before meals and at bedtime. [facility] esomeprazol e 40 mg capsule 01-26 00:00: 00 01-30 00:00 :00 No [id number] 40mg Take 1 capsule by mouth daily with breakfast. [facility] ergocalcife rol, vitamin d2, (VITAMIN D2) 1,250 mcg (50,000 unit) capsule 11-27 00:00: 00 02-17 00:00 :00 No [id number] Take 1 capsule by mouth weekly. [facility] diphenhydrA MINE (BENADRYL) 25 mg capsule 11-25 00:00: 00 04-13 00:00 :00 No [id number] 25mg Take 1 capsule by mouth every 6 (six) hours as needed for Allergies. [facility] lidocaine 5 % ointment 11-25 00:00: 00 04-13 00:00 :00 No [id number] Apply to area(s) 2 (two) times daily. [facility] triamcinolo ne acetonide 0.1 % cream 11-25 00:00: 00 04-13 00:00 :00 No [id number] Apply to area(s) 2 (two) times daily. [facility] fluticasone propionate 50 mcg/actuati on nasal spray 11-25 00:00: 00 03-22 00:00 :00 No [id number] 1{spray } Use 1 Marlette in each nostril in the morning. [facility] pantoprazol e 40 mg EC tablet - 00:00: 00 02-17 00:00 :00 No [id number] 40mg Take 1 tablet by mouth in the morning. [facility] pantoprazol e 40 mg EC tablet 3-15 00:00: 00 11-25 00:00 :00 No [id number] 40mg Take 1 tablet by mouth in the morning. [facility] fluticasone propionate 50 mcg/actuati on nasal spray 3-15 00:00: 00 11-25 00:00 :00 No [id number] 1{spray } Use 1 Marlette in each nostril in the morning. [facility] ketorolac (TORADOL) injection 15 mg -08 22:15: 00 10-02 21:47 :00 No 15mg 15 mg, Slow IV Push, ONCE, 1 dose, On Fri10/03/23 at 1615, MARGARITA [facility] iopamidol (ISOVUE 370-500 mL) injection 85 mL 2022-07 0-11 02:45: 00 05-07 02:45 :00 No [id number] 85mL 85 mL, Intravenou s, ONCE, 1 dose, On Fri05/06/23 at 2145, Routine [facility] ondansetron (ZOFRAN (PF)) injection 4 mg 2022-07 01:45: 00 05-07 02:54 :00 No 4mg 4 mg, Slow IV Push, ONCE, 1 dose, On Fri05/06/23 at 2045, MARGARITA [facility] pantoprazol e 40 mg EC tablet 2022-07 0- 00:00: 00 07-31 05:59 :00 No 40mg Take 1 tablet by mouth in the morning for 90 days. [facility] pantoprazol e (PROTONIX) EC tablet 40 mg 2022-07 0 14:00: 00 Yes 40mg 40 mg, Oral, DAILY, First dose on Fri04/30/23 at 0900, Until Discontinu ed, Routine [facility] gabapentin (NEURONTIN) capsule 300 mg 2022-07 0 01:00: 00 Yes 300mg 300 mg, Oral, TID, First dose on Fri04/29/23 at 2000, Until Discontinu ed, Routine [facility] gabapentin 300 mg capsule 2022-07 0- 00:00: 00 10-09 00:00 :00 No [id number] 300mg Take 1 capsule by mouth in the morning and 1 capsule at noon and 1 capsule in the evening. [facility] ondansetron 4 mg tablet 2022-07 0 00:00: 00 05-15 04:59 :00 No [id number] 4mg Take 1 tablet by mouth every 8 (eight) hours as needed for Nausea and Vomiting (N/V) for up to 14 days. [facility] dicyclomine 20 mg tablet 2022-07 0- 00:00: 00 05-15 04:59 :00 No [id number] 20mg Take 1 tablet by mouth 4 (four) times daily as needed for Abdominal pain for up to 14 days. [facility] methocarbam oL 500 mg tablet 2022-07 0-04 00:00: 00 05-05 04:59 :00 No [id number] 500mg Take 1 tablet by mouth 4 (four) times daily for 4 days. [facility] Pantoprazol e 40 mg delayed-rel ease suspension 2022-07 00:00: 00 05-01 00:00 :00 No [id number] 40mg Take 40 mg by mouth in the morning and 40 mg in the evening. Do all this for 38 days. [facility] methocarbam oL (ROBAXIN) tablet 500 mg 2022-07 21:00: 00 Yes 500mg 500 mg, Oral, QID, First dose on Fri04/29/23 at 1600, Until Discontinu ed, Routine [facility] piperacilli n-tazobacta m (ZOSYN) 3.375 [...] Soft tissue
Duration of therapy: 72 hours [facility] piperacilli n-tazobacta m (ZOSYN) 3.375 g in NaCl 0.9% (NS) 100 mL MINI-BAG 2022-07 23:30: 00 04-29 00:00 :00 No 3.375g 3.375 g, IV Piggyback, ONCE, 1 dose, On Fri04/28/23 at 1830, Administer over 30 Minutes, 100 mL
Reas on for Anti-Infec tive: Empiric Therapy for Suspected Infection< br>Empiric Therapy Site: Skin / Soft tissue
Duration of therapy: 72 hours [facility] ondansetron (ZOFRAN) tablet 4 mg 04-25 20:13: 34 Yes 4mg 4 mg, Oral, Q8HPRN, Starting on Fri04/25/23 at 1513, Until Discontinu ed, Routine, Nausea and Vomiting (N/V) [facility] sucralfate (CARAFATE) tablet 1 g 04-24 16:30: 00 Yes 1g 1 g, Oral, AC+HS, First dose on Fri04/24/23 at 1130, Until Discontinu ed, Routine [facility] sucralfate (CARAFATE) 100 mg/mL suspension 1,000 mg 04-23 02:00: 00 04-24 13:09 :41 No 1g 1,000 mg (1 g), Oral, AC+HS, First dose on Fri04/22/23 at 2100, Until Discontinu ed, [facility] iop[facility] (ISOVUE 370-500 mL) injection 125 mL 04-23 01:13: 00 04-23 01:14 :00 No [id number] 125mL 125 mL, Intravenou s, ONCE, 1 dose, On Fri04/22/23 at 2030, Routine [facility] pantoprazol e (PROTONIX) injection 40 mg 04-23 01:00: 00 Yes 40mg 40 mg, Slow IV Push, Q12H, First dose (after last modificati on) on Fri04/22/23 at 2000, Until Discontinu ed [facility] maalox:diph enhydrAMINE :lidocaine 2 % viscous 1:1:1 ([facility]) oral suspension 15 mL 04-23 01:00: 00 Yes 15mL 15 mL, Oral, Q12H, First dose (after last reorder) on Fri04/22/23 at 2000, Until Discontinu ed, Routine [facility] maalox:diph enhydrAMINE :lidocaine 2 % viscous 1:1:1 ([facility]) oral suspension 15 mL 04-22 19:29: 24 Yes 15mL 15 mL, Oral, QDAILYPRN, Starting on Fri04/22/23 at 1429, Until Discontinu ed, Routine, abd pain [facility] acetaminoph en (TYLENOL) tablet 650 mg 04-22 18:45: 00 Yes 650mg 650 mg, Oral, Q6H, First dose (after last modificati on) on Fri04/22/23 at 1345, Until Discontinu ed, Routine [facility] maalox:diph enhydrAMINE :lidocaine 2 % viscous 1:1:1 ([facility]) oral suspension 15 mL 04-22 11:15: 00 04-22 11:33 :00 No 15mL 15 mL, Oral, ONCE, 1 dose, On Fri04/22/23 at 0630, Routine [facility] HYDROcodone -acetaminop hen (NORCO 5) 5-325 mg tablet 1 tablet 04-22 08:50: 53 Yes 1{tbl} 1 tablet, Oral, Q6HPRN, Starting on Fri04/22/23 at 0350, Until Discontinu ed, Routine, Pain (scale 7-10) [facility] enoxaparin (LOVENOX) injection 40 mg 04-22 08:45: 00 Yes 40mg 40 mg, Subcutaneo us, Q24H, First dose on Fri04/22/23 at 0345, Until Discontinu ed, Routine [facility] pantoprazol e (PROTONIX) injection 40 mg 04-22 08:00: 00 04-22 16:04 :07 No 40mg 40 mg, Slow IV Push, Q24H, 3 doses, First dose on Fri04/22/23 at 0300, Last dose on Fri04/24/23 at 0300 [facility] maalox:diph enhydrAMINE :lidocaine 2 % viscous 1:1:1 ([facility]) oral suspension 15 mL 04-22 06:00: 00 04-22 06:09 :00 No 15mL 15 mL, Oral, ONCE, 1 dose, On Fri04/22/23 at 0100, [facility]ine [facility] maalox:diph enhydrAMINE :lidocaine 2 % viscous 1:1:1 ([facility]) oral suspension 15 mL 04-21 23:45: 00 04-22 00:39 :00 No 15mL 15 mL, Oral, ONCE, 1 dose, On Fri04/21/23 at 1845, Routine [facility] NaCl 0.9% (NS) bolus infusion 1,000 mL 04-21 23:30: 00 04-22 01:59 :00 No 1000mL at 999 mL/hr, 1,000 mL, IV Infusion, ONCE, 1 dose, On Fri04/21/23 at 1830, MARGARITA [facility] Pantoprazol e 40 mg delayed-rel ease suspension 03-13 14:52: 41 03-13 00:00 :00 No 40mg Take 40 mg by mouth in the morning. [facility] peg-electro lyte soln 236-22.74-6 .74 -5.86 gram solution 03-13 00:00: 00 10-09 00:00 :00 No [id number] Take as directed before colonoscop y [facility] Pantoprazol e 40 mg delayed-rel ease suspension 03-13 00:00: 00 04-30 00:00 :00 No [id number] 40mg Take 40 mg by mouth in the morning and 40 mg in the evening. [facility] maalox:diph enhydrAMINE :lidocaine 2 % viscous 1:1:1 ([facility]) oral suspension 15 mL 03-12 01:30: 00 03-12 01:35 :00 No 15mL 15 mL, Oral, ONCE, 1 dose, On Fri03/11/23 at 2030, Routine [facility] dicyclomine (BENTYL) tablet 20 mg 03-12 01:30: 00 03-12 01:34 :00 No 20mg 20 mg, Oral, ONCE, 1 dose, On Fri03/11/23 at 2030, MARGARITA [facility] NaCl 0.9% (NS) bolus infusion 1,000 mL 03-11 23:45: 00 03-12 01:58 :00 No 1000mL at 999 mL/hr, 1,000 mL, IV Infusion, ONCE, 1 dose, On Fri03/11/23 at 1845, [facility] ondansetron (ZOFRAN (PF)) injection 4 mg 03-11 23:00: 00 03-12 00:32 :00 No 4mg 4 mg, Slow IV Push, ONCE, 1 dose, On Fri03/11/23 at 1800, [facility] ondansetron 4 mg disintegrat ing tablet 03-11 00:00: 00 10-09 00:00 :00 No [id number] 4mg Take 1 tablet by mouth every 8 (eight) hours as needed for Nausea and Vomiting (N/V). [facility] dicyclomine 20 mg tablet 03-11 00:00: 00 04-30 00:00 :00 No [id number] 20mg Take 1 tablet by mouth 4 (four) times daily as needed for Abdominal pain. [facility] pantoprazol e (PROTONIX) 40 mg EC tablet 02-27 00:00: 00 02-26 00:00 :00 No [id number] 40mg Take 1 tablet by mouth in the morning for 30 days. [facility] aspirin 81 mg chewable tablet 02-27 00:00: 00 02-26 00:00 :00 No [id number] 81mg Take 1 tablet by mouth in the morning for 30 days. [facility] maalox:diph enhydrAMINE :lidocaine 2 % viscous 1:1:1 ([facility]) oral suspension 15 mL 02-26 17:30: 00 02-26 17:41 :00 No 15mL 15 mL, Oral, ONCE, 1 dose, On Fri02/26/23 at 1230, Routine [facility] cefTRIAXone (ROCEPHIN) 1,000 mg in NaCl 0.9% (NS) 100 mL MINI-BAG 02-26 14:45: 00 02-26 16:14 :00 No 1000mg 1,000 mg, IV Piggyback, Q24H ABX, 1 dose, First dose on Fri02/26/23 at 0945, Administer over 30 Minutes, 100 mL
Reas on for Anti-Infec tive: Empiric Therapy for Suspected Infection< br>Empiric Therapy Site: Urine
D uration of therapy: 5 days [facility] pantoprazol e (PROTONIX) EC tablet 40 mg 02-26 14:00: 00 Yes 40mg 40 mg, Oral, DAILY, First dose on Fri02/26/23 at 0900, Until Discontinu ed, Routine [facility] aspirin chewable tablet 81 mg 02-26 14:00: 00 Yes 81mg 81 mg, Oral, DAILY, First dose on Fri02/26/23 at 0900, Until Discontinu ed, Routine [facility] enoxaparin (LOVENOX) injection 40 mg 02-26 14:00: 00 Yes 40mg 40 mg, Subcutaneo us, DAILY, First dose on Fri02/26/23 at 0900, Until Discontinu ed, Routine [facility] dicyclomine (BENTYL) tablet 20 mg 02-26 04:22: 14 Yes 20mg 20 mg, Oral, Q6HPRN, Starting on Fri02/25/23 at 2322, Until Discontinu ed, Routine, Abdominal pain [facility] sulfamethox azole-trime thoprim (BACTRIM DS) 800-160 mg per tablet 02-26 00:00: 00 02-26 00:00 :00 No [id number] 1{tbl} Take 1 tablet by mouth in the morning and 1 tablet in the evening. Do all this for 3 days. [facility] atorvastati n 20 mg tablet 02-26 00:00: 00 02-26 00:00 :00 No [id number] 20mg Take 1 tablet by mouth at bedtime for 30 days. [facility] sucralfate 1 gram tablet 02-26 00:00: 00 02-26 00:00 :00 No [id number] 1g Take 1 tablet by mouth before meals and at bedtime for 20 days. [facility] aspirin tablet 325 mg 02-25 23:00: 00 02-25 22:02 :00 No 325mg 325 mg, Oral, ONCE, 1 dose, On Fri02/25/23 at 1800, MARGARITA [facility] ondansetron (ZOFRAN (PF)) injection 4 mg 02-25 22:57: 52 Yes 4mg 4 mg, Slow IV Push, Q6HPRN, Starting on Fri02/25/23 at 1757, Until Discontinu ed, Routine, Nausea and Vomiting (N/V) [facility] acetaminoph en (TYLENOL) tablet 650 mg 02-25 22:57: 45 Yes 650mg 650 mg, Oral, Q6HPRN, Starting on Fri02/25/23 at 1757, Until Discontinu ed, Routine, Pain (scale 1-3) [facility] NaCl 0.9% (NS) bolus infusion 1,000 mL 02-25 21:45: 00 02-25 21:51 :00 No 1000mL at 999 mL/hr, 1,000 mL, IV Infusion, ONCE, 1 dose, On Fri02/25/23 at 1645, STAT [facility] nitroglycer in (NITROL) 2 % ointment 0.5 Inch 02-25 21:45: 00 02-25 21:51 :00 No .5[in_u s] 0.5 Inch, Transderma l (Apply To Skin), ONCE, 1 dose, On Fri02/25/23 at 1645, MARGARITA [facility] iopamidol (ISOVUE 370-500 mL) injection 100 mL 02-25 20:49: 00 02-25 20:48 :00 No [id number] 100mL 100 mL, Intravenou s, ONCE, 1 dose, On Fri02/25/23 at 1615, Routine [facility] NaCl 0.9% (NS) injection 5 mL 02-25 20:15: 02 Yes 5mL 5 mL, Slow IV Push, PRN - SEE INSTRUCTIO NS, Starting on Fri02/25/23 at 1515, Until Discontinu ed, 10 mL [facility] maalox:diph enhydrAMINE :lidocaine 2 % viscous 1:1:1 ([facility]) oral suspension 15 mL 02-03 04:15: 00 02-03 04:27 :00 No 15mL 15 mL, Oral, ONCE, 1 dose, On Fri02/02/23 at 2315, Routine [facility] iopamidol (ISOVUE 370-500 mL) injection 100 mL 02-03 02:45: 00 02-03 01:46 :00 No [id number] 100mL 100 mL, Intravenou s, ONCE, 1 dose, On Fri02/02/23 at 2145, Routine [facility] ketorolac (TORADOL) injection 30 mg 02-03 02:15: 00 02-03 01:29 :00 No 30mg 30 mg, Slow IV Push, ONCE, 1 dose, On Fri02/02/23 at 2115, Routine [facility] maalox:diph enhydrAMINE :lidocaine 2 % viscous 1:1:1 ([facility]) oral suspension 15 mL 02-03 01:30: 00 02-03 01:29 :00 No 15mL 15 mL, Oral, ONCE, 1 dose, On Fri02/02/23 at 2030, Routine [facility] pantoprazol e (PROTONIX) 40 mg EC tablet 02-02 00:00: 00 Yes [id number] 40mg Take 1 tablet by mouth in the morning. [facility] dicyclomine 20 mg tablet 02-02 00:00: 00 Yes [id number] 20mg Take 1 tablet by mouth every 6 (six) hours as needed for Abdominal pain. [facility] ondansetron (ZOFRAN) 4 mg tablet 02-02 00:00: 00 Yes [id number] 4mg Take 1 tablet by mouth every 8 (eight) hours as needed for Nausea and Vomiting (N/V). [facility] albuterol 90 mcg/actuati on inhaler 2021-07 00:00: 00 02-25 00:00 :00 No [id number] 2{puff} Inhale 2 Puffs every 4 (four) hours as needed for Wheezing or Shortness of Breath. [facility] benzonatate 100 mg capsule 2021-07 00:00: 00 02-25 00:00 :00 No [id number] 100mg Take 1 capsule by mouth 3 (three) times daily as needed for Cough. [facility] dextrometho rphan-guaif enesin 10-100 mg/5 mL solution 04-23 00:00: 00 05-01 04:59 :00 No [id number] 5mL Take 5 mL by mouth every 6 (six) hours as needed for Cough for up to 7 days. [facility] fluticasone propionate 50 mcg/actuati on nasal spray 04-23 00:00: 00 05-01 04:59 :00 No [id number] 1{spray } Use 1 Marlette in each nostril in the morning for 7 days. [facility] triamcinolo ne acetonide 0.1 % ointment 12-13 00:00: 00 02-25 00:00 :00 No [id number] Apply to area(s) 2 (two) times daily. [facility] aug betamethaso ne dipropionat e 0.05 % cream 12-13 00:00: 00 02-25 00:00 :00 No [id number] Apply to area(s) 2 (two) times daily. [facility] benzonatate (TESSALON PERLES) 100 mg capsule 08-23 00:00: 00 05-21 00:00 :00 No [id number] 100mg Take 1 capsule by mouth every 8 (eight) hours as needed for Cough. [facility] pantoprazol e 40 mg EC tablet 1-25 00:00: 00 02-25 00:00 :00 No [id number] 40mg Take 1 tablet by mouth 2 (two) times daily. [facility] aug betamethaso ne dipropionat e 0.05 % cream - 00:00: 00 02-25 00:00 :00 No [id number] Apply to area(s) 2 (two) times daily. Avoid face, armpits, and groin. [facility] triamcinolo ne acetonide 0.1 % ointment 08-07 00:00: 00 02-25 00:00 :00 No [id number] Apply to area(s) 2 (two) times daily. As needed for rash. Avoid face, armpits, and groin. [facility] hydroCHLORO thiazide 25 mg tablet 2020-07 2 00:00: 00 02-25 00:00 :00 No [id number] 12.5mg Take 0.5 tablets by mouth daily. [facility] naproxen 500 mg tablet 2020-07 1- 00:00: 00 02-25 00:00 :00 No [id number] 500mg Take 1 tablet by mouth 2 (two) times daily with meals. [facility] hydrOXYzine 25 mg tablet 2020-07 1- 00:00: 00 02-25 00:00 :00 No [id number] 25mg Take 1 tablet by mouth 2 (two) times daily as needed for Anxiety. [facility] DULoxetine 20 mg capsule 2020-07 1-10 00:00: 00 02-25 00:00 :00 No [id number] 20mg Take 1 capsule by mouth daily. [facility] hydroCHLORO thiazide 25 mg tablet 2020-07 0-29 00:00: 00 07-26 00:00 :00 No [id number] 12.5mg Take 0.5 tablets by mouth daily. [facility] hydrOXYzine 25 mg tablet 2020-07 0-23 00:00: 02-25 00:00 :00 No [id number] 25mg Take 1 tablet by mouth every 6 (six) hours as needed for Anxiety. [facility] fluconazole (DIFLUCAN) 150 mg tablet 04-23 00:00: 00 08-21 00:00 :00 No [id number] Take 1 tablet by mouth every 3 days, for 3 doses [facility] aug betamethaso ne dipropionat e 0.05 % cream 04-23 00:00: 00 08-06 00:00 :00 No [id number] Apply to area(s) 2 (two) times daily. Avoid face, armpits, and groin. [facility] triamcinolo ne acetonide 0.1 % ointment 04-23 00:00: 00 08-06 00:00 :00 No [id number] Apply to area(s) 2 (two) times daily. As needed for rash. Avoid face, armpits, and groin. [facility] pantoprazol e 40 mg EC tablet 04-06 00:00: 00 08-21 00:00 :00 No [id number] 40mg Take 1 tablet by mouth daily. [facility] vitamin w/FA tablet 03-29 00:00: 00 Yes [id number] 1{tbl} Take 1 tablet by mouth daily. [facility] docusate calcium 240 mg capsule 03-29 00:00: 00 02-25 00:00 :00 No [id number] 240mg Take 1 capsule by mouth once daily as needed for Constipati on. [facility] ferrous sulfate 325 mg (65 mg iron) tablet 03-29 00:00: 02-25 00:00 :00 No [id number] 325mg Take 1 tablet by mouth 2 (two) times daily. [facility] ibuprofen 600 mg tablet 03-29 00:00: 00 02-25 00:00 :00 No [id number] 600mg Take 1 tablet by mouth every 6 (six) hours as needed (Pain). Take with food or milk. [facility] vitamin w/FA tablet 9-02 00:00: 00 02-25 00:00 :00 No [id number] 1{tbl} Take 1 tablet by mouth daily. [facility] pantoprazol e (PROTONIX) 40 mg EC tablet 8-04 00:00: 00 06-06 00:00 :00 No [id number] 40mg Take 1 tablet by mouth daily. [facility] Immunizations Ordered Immunization Name Filled Immunization Name Date Status Comments Source Flu Injectable MDCK Pres-Free (FLUCELVAX) 2024-06-18 00:00:00 Completed [facility] TD, NOS 2024-04-21 04:51:00 Completed [facility] TDAP 2024-04-21 04:51:00 Completed [facility] Influenza Virus Vaccine Quad IM, Preserv and ABX Free 6 MO-64 YRS (FLUCELVAX) 2024-04-21 04:51:00 Completed [facility] TDAP 2024-03-23 00:00:00 Completed [facility] TD, NOS 2024-01-08 00:00:00 Completed [facility] TDAP 2024-01-08 00:00:00 Completed [facility] Influenza Virus Vaccine Quad IM, Preserv and ABX Free 6 MO-64 YRS (FLUCELVAX) 2024-01-08 00:00:00 Completed [facility] TD, NOS 2023-12-16 14:30:00 Completed [facility] TDAP 2023-12-16 14:30:00 Completed [facility] Influenza Virus Vaccine Quad IM, Preserv and ABX Free 6 MO-64 YRS (FLUCELVAX) 2023-12-16 14:30:00 Completed [facility] TD, NOS 2023-12-01 00:00:00 Completed [facility] TDAP 2023-12-01 00:00:00 Completed [facility] Influenza Virus Vaccine Quad IM, Preserv and ABX Free 6 MO-64 YRS (FLUCELVAX) 2023-12-01 00:00:00 Completed [facility] TD, NOS 2023-11-28 00:00:00 Completed [facility] TDAP 2023-11-28 00:00:00 Completed [facility] Influenza Virus Vaccine Quad IM, Preserv and ABX Free 6 MO-64 YRS (FLUCELVAX) 2023-11-28 00:00:00 Completed [facility] TD, NOS 2023-11-26 14:15:00 Completed [facility] TDAP 2023-11-26 14:15:00 Completed [facility] Influenza Virus Vaccine Quad IM, Preserv and ABX Free 6 MO-64 YRS (FLUCELVAX) 2023-11-26 14:15:00 Completed [facility] TD, NOS 2023-11-26 13:00:00 Completed [facility] TDAP 2023-11-26 13:00:00 Completed [facility] Influenza Virus Vaccine Quad IM, Preserv and ABX Free 6 MO-64 YRS (FLUCELVAX) 2023-11-26 13:00:00 Completed [facility] TD, NOS 2023-10-20 00:00:00 Completed [facility] TDAP 2023-10-20 00:00:00 Completed [facility] Influenza Virus Vaccine Quad IM, Preserv and ABX Free 6 MO-64 YRS (FLUCELVAX) 2023-10-20 00:00:00 Completed [facility] TD, NOS 2023-10-10 15:45:00 Completed [facility] TDAP 2023-10-10 15:45:00 Completed [facility] Influenza Virus Vaccine Quad IM, Preserv and ABX Free 6 MO-64 YRS (FLUCELVAX) 2023-10-10 15:45:00 Completed [facility] TD, NOS 2023-10-10 14:50:00 Completed [facility] Influenza Virus Vaccine Quad IM, Preserv and ABX Free 6 MO-64 YRS (FLUCELVAX) 2023-10-10 14:50:00 Completed [facility] TDAP 2023-10-10 14:50:00 Completed [facility] TD, NOS 2023-10-03 15:08:00 Completed [facility] TDAP 2023-10-03 15:08:00 Completed [facility] Influenza Virus Vaccine Quad IM, Preserv and ABX Free 6 MO-64 YRS (FLUCELVAX) 2023-10-03 15:08:00 Completed [facility] TD, NOS 2023-09-29 00:00:00 Completed [facility] TDAP 2023-09-29 00:00:00 Completed [facility] Influenza Virus Vaccine Quad IM, Preserv and ABX Free 6 MO-64 YRS (FLUCELVAX) 2023-09-29 00:00:00 Completed [facility] TD, NOS 2023-05-06 18:19:00 Completed [facility] TDAP 2023-05-06 18:19:00 Completed [facility] Influenza Virus Vaccine Quad IM, Preserv and ABX Free 6 MO-64 YRS (FLUCELVAX) 2023-05-06 18:19:00 Completed [facility] TD, NOS 2023-05-01 00:00:00 Completed [facility] TDAP 2023-05-01 00:00:00 Completed [facility] Influenza Virus Vaccine Quad IM, Preserv and ABX Free 6 MO-64 YRS (FLUCELVAX) 2023-05-01 00:00:00 Completed [facility] TD, NOS 2023-04-30 00:00:00 Completed [facility] TDAP 2023-04-30 00:00:00 Completed [facility] Influenza Virus Vaccine Quad IM, Preserv and ABX Free 6 MO-64 YRS (FLUCELVAX) 2023-04-30 00:00:00 Completed [facility] TD, NOS 2023-04-29 06:50:00 Completed [facility] TDAP 2023-04-29 06:50:00 Completed [facility] Influenza Virus Vaccine Quad IM, Preserv and ABX Free 6 MO-64 YRS (FLUCELVAX) 2023-04-29 06:50:00 Completed [facility] TD, NOS 2023-04-25 13:26:00 Completed [facility] TDAP 2023-04-25 13:26:00 Completed [facility] Influenza Virus Vaccine Quad IM, Preserv and ABX Free 6 MO-64 YRS (FLUCELVAX) 2023-04-25 13:26:00 Completed [facility] TD, NOS 2023-04-21 16:49:00 Completed [facility] TDAP 2023-04-21 16:49:00 Completed [facility] Influenza Virus Vaccine Quad IM, Preserv and ABX Free 6 MO-64 YRS (FLUCELVAX) 2023-04-21 16:49:00 Completed [facility] TD, NOS 2023-04-09 00:00:00 Completed [facility] TDAP 2023-04-09 00:00:00 Completed [facility] Influenza Virus Vaccine Quad IM, Preserv and ABX Free 6 MO-64 YRS (FLUCELVAX) 2023-04-09 00:00:00 Completed [facility] TD, NOS 2023-03-20 00:00:00 Completed [facility] TDAP 2023-03-20 00:00:00 Completed [facility] Influenza Virus Vaccine Quad IM, Preserv and ABX Free 6 MO-64 YRS (FLUCELVAX) 2023-03-20 00:00:00 Completed [facility] TD, NOS 2021-08-22 00:00:00 Completed [facility] TDAP 2021-08-22 00:00:00 Completed [facility] Influenza Virus Vaccine Quad IM, Preserv and ABX Free 6 MO-64 YRS (FLUCELVAX) 2021-08-22 00:00:00 Completed [facility] TD, NOS 2021-05-31 00:00:00 Completed [facility] TDAP 2021-05-31 00:00:00 Completed [facility] Influenza Virus Vaccine Quad IM, Preserv and ABX Free 6 MO-64 YRS (FLUCELVAX) 2021-05-31 00:00:00 Completed [facility] TD, NOS 2021-05-28 00:00:00 Completed [facility] TDAP 2021-05-28 00:00:00 Completed [facility] Influenza Virus Vaccine Quad IM, Preserv and ABX Free 6 MO-64 YRS (FLUCELVAX) 2021-05-28 00:00:00 Completed [facility] Influenza Virus Vaccine Quad IM, Preserv and ABX Free 6 MO-64 YRS 2021-05-25 00:00:00 Completed [facility] Influenza Virus Vaccine Quad IM, Preserv and ABX Free 6 MO-64 YRS 2021-05-25 00:00:00 Completed [facility] Influenza Virus Vaccine Quad IM, Preserv and ABX Free 6 MO-64 YRS 2021-05-25 00:00:00 Completed [facility] Influenza Virus Vaccine Quad IM, Preserv and ABX Free 6 MO-64 YRS 2021-05-25 00:00:00 Completed [facility] Influenza Virus Vaccine Quad IM, Preserv and ABX Free 6 MO-64 YRS 2021-05-25 00:00:00 Completed [facility] Influenza Virus Vaccine Quad IM, Preserv and ABX Free 6 MO-64 YRS 2021-05-25 00:00:00 Completed [facility] Influenza Virus Vaccine Quad IM, Preserv and ABX Free 6 MO-64 YRS 2021-05-25 00:00:00 Completed [facility] Influenza Virus Vaccine Quad IM, Preserv and ABX Free 6 MO-64 YRS 2021-05-25 00:00:00 Completed [facility] Influenza Virus Vaccine Quad IM, Preserv and ABX Free 6 MO-64 YRS 2021-05-25 00:00:00 Completed [facility] Influenza Virus Vaccine Quad IM, Preserv and ABX Free 6 MO-64 YRS 2021-05-25 00:00:00 Completed [facility] Influenza Virus Vaccine Quad IM, Preserv and ABX Free 6 MO-64 YRS 2021-05-25 00:00:00 Completed [facility] Influenza Virus Vaccine Quad IM, Preserv and ABX Free 6 MO-64 YRS 2021-05-25 00:00:00 Completed [facility] Influenza Virus Vaccine Quad IM, Preserv and ABX Free 6 MO-64 YRS 2021-05-25 00:00:00 Completed [facility] Influenza Virus Vaccine Quad IM, Preserv and ABX Free 6 MO-64 YRS 2021-05-25 00:00:00 Completed [facility] Influenza Virus Vaccine Quad IM, Preserv and ABX Free 6 MO-64 YRS (FLUCELVAX) 2021-05-25 00:00:00 Completed [facility] TD, NOS 2021-03-16 00:00:00 Completed [facility] TDAP 2021-03-16 00:00:00 Completed [facility] TD, NOS 2021-03-03 00:00:00 Completed [facility] TDAP 2021-03-03 00:00:00 Completed [facility] TDAP 2021-01-17 00:00:00 Completed [facility] TDAP 2021-01-17 00:00:00 Completed [facility] TDAP 2021-01-17 00:00:00 Completed [facility] TDAP 2021-01-17 00:00:00 Completed [facility] TDAP 2021-01-17 00:00:00 Completed [facility] TDAP 2021-01-17 00:00:00 Completed [facility] TDAP 2021-01-17 00:00:00 Completed [facility] TDAP 2021-01-17 00:00:00 Completed [facility] TDAP 2021-01-17 00:00:00 Completed [facility] TDAP 2021-01-17 00:00:00 Completed [facility] TDAP 2021-01-17 00:00:00 Completed [facility] TDAP 2021-01-17 00:00:00 Completed [facility] TDAP 2021-01-17 00:00:00 Completed [facility] TDAP 2021-01-17 00:00:00 Completed [facility] TDAP 2021-01-17 00:00:00 Completed [facility] TDAP 2012-09-29 00:00:00 Completed [facility] TDAP 2012-09-29 00:00:00 Completed [facility] TDAP 2012-09-29 00:00:00 Completed [facility] TDAP 2012-09-29 00:00:00 Completed [facility] TDAP 2012-09-29 00:00:00 Completed [facility] TDAP 2012-09-29 00:00:00 Completed [facility] TDAP 2012-09-29 00:00:00 Completed [facility] TDAP 2012-09-29 00:00:00 Completed [facility] TDAP 2012-09-29 00:00:00 Completed [facility] TDAP 2012-09-29 00:00:00 Completed [facility] TDAP 2012-09-29 00:00:00 Completed [facility] TDAP 2012-09-29 00:00:00 Completed [facility] TDAP 2012-09-29 00:00:00 Completed [facility] TDAP 2012-09-29 00:00:00 Completed [facility] TDAP 2012-09-29 00:00:00 Completed [facility] Td 1994-07-28 00:00:00 Completed [facility] Td 1994-07-28 00:00:00 Completed [facility] Td 1994-07-28 00:00:00 Completed [facility] Td 1994-07-28 00:00:00 Completed [facility] Td 1994-07-28 00:00:00 Completed [facility] Td 1994-07-28 00:00:00 Completed [facility] Td 1994-07-28 00:00:00 Completed [facility] TD, NOS 1994-07-28 00:00:00 Completed [facility] TD, NOS 1994-07-28 00:00:00 Completed [facility] TD, NOS 1994-07-28 00:00:00 Completed [facility] TD, NOS 1994-07-28 00:00:00 Completed [facility] TD, NOS 1994-07-28 00:00:00 Completed [facility] TD, NOS 1994-07-28 00:00:00 Completed [facility] TD, NOS 1994-07-28 00:00:00 Completed [facility] TD, NOS 1994-07-28 00:00:00 Completed [facility] Vital Signs Vital Name Observation Time Observation Value Comments S ource Systolic blood pressure 2025-02-17 18:00:00 147 mm[Hg] [facility] Diastolic blood pressure 2025-02-17 18:00:00 85 mm[Hg] [facility] Heart rate 2025-02-17 18:00:00 95 /min [facility] Body height 2025-02-17 18:00:00 165.1 cm [facility] Body weight 2025-02-17 18:00:00 172.367 kg per patient, didn't want to weigh in [facility] BMI 2025-02-17 18:00:00 63.24 kg/m2 [facility] Oxygen saturation in Arterial blood by Pulse oximetry 2025-02-17 18:00:00 96 /min [facility] Systolic blood pressure 2025-01-12 21:13:00 135 mm[Hg] [facility] Diastolic blood pressure 2025-01-12 21:13:00 81 mm[Hg] [facility] Heart rate 2025-01-12 21:13:00 98 /min [facility] Oxygen saturation in Arterial blood by Pulse oximetry 2025-01-12 21:13:00 96 /min [facility] Body height 2025-01-12 21:09:00 165.1 cm pt stated height [facility] Body weight 2025-01-12 21:09:00 175.996 kg pt stated weight [facility] BMI 2025-01-12 21:09:00 64.57 kg/m2 [facility] Systolic blood pressure 2025-01-11 21:01:00 138 mm[Hg] [facility] Diastolic blood pressure 2025-01-11 21:01:00 87 mm[Hg] [facility] Heart rate 2025-01-11 21:01:00 95 /min [facility] Body temperature 2025-01-11 21:01:00 36.22 Dinorah [facility] Body height 2025-01-11 21:01:00 165.1 cm [facility] Body weight 2025-01-11 21:01:00 173.274 kg [facility] BMI 2025-01-11 21:01:00 63.57 kg/m2 [facility] Oxygen saturation in Arterial blood by Pulse oximetry 2025-01-11 21:01:00 96 /min [facility] Systolic blood pressure 2024-12-27 16:48:00 151 mm[Hg] [facility] Diastolic blood pressure 2024-12-27 16:48:00 101 mm[Hg] [facility] Body temperature 2024-12-27 16:47:00 36.67 Dinorah [facility] Respiratory rate 2024-12-27 16:47:00 18 /min [facility] Body height 2024-12-27 16:47:00 165.1 cm [facility] Body weight 2024-12-27 16:47:00 173.365 kg [facility] BMI 2024-12-27 16:47:00 63.60 kg/m2 [facility] Systolic blood pressure 2024-11-09 15:38:00 156 mm[Hg] [facility] Diastolic blood pressure 2024-11-09 15:38:00 84 mm[Hg] [facility] Heart rate 2024-11-09 15:37:00 81 /min [facility] Body temperature 2024-11-09 15:37:00 36.72 Dinorah [facility] Body height 2024-11-09 15:37:00 165.1 cm [facility] Body weight 2024-11-09 15:37:00 168.693 kg [facility] BMI 2024-11-09 15:37:00 61.89 kg/m2 [facility] Oxygen saturation in Arterial blood by Pulse oximetry 2024-11-09 15:37:00 96 /min [facility] Systolic blood pressure 2024-10-25 15:11:00 142 mm[Hg] [facility] Diastolic blood pressure 2024-10-25 15:11:00 99 mm[Hg] [facility] Heart rate 2024-10-25 15:11:00 88 /min [facility] Oxygen saturation in Arterial blood by Pulse oximetry 2024-10-25 15:11:00 95 /min [facility] Body height 2024-10-25 15:08:00 165.9 cm In Clinic [facility] Body weight 2024-10-25 15:08:00 167.649 kg [facility] BMI 2024-10-25 15:08:00 60.94 kg/m2 [facility] Systolic blood pressure 2024-10-12 19:20:00 126 mm[Hg] [facility] Diastolic blood pressure 2024-10-12 19:20:00 86 mm[Hg] [facility] Heart rate 2024-10-12 19:20:00 97 /min [facility] Oxygen saturation in Arterial blood by Pulse oximetry 2024-10-12 19:20:00 94 /min [facility] Body temperature 2024-10-12 19:19:00 36.56 Dinorah [facility] Body weight 2024-10-12 19:19:00 165.109 kg [facility] BMI 2024-10-12 19:19:00 60.57 kg/m2 [facility] Systolic blood pressure 2024-08-12 17:00:00 138 mm[Hg] [facility] Diastolic blood pressure 2024-08-12 17:00:00 101 mm[Hg] [facility] Heart rate 2024-08-12 17:00:00 69 /min [facility] Respiratory rate 2024-08-12 17:00:00 11 /min [facility] Oxygen saturation in Arterial blood by Pulse oximetry 2024-08-12 17:00:00 98 /min [facility] Body temperature 2024-08-12 16:27:00 36.33 Dinorah [facility] Body weight 2024-08-12 14:29:00 154.677 kg [facility] BMI 2024-08-12 14:29:00 56.75 kg/m2 [facility] Systolic blood pressure 2024-08-12 14:29:00 161 mm[Hg] [facility] Diastolic blood pressure 2024-08-12 14:29:00 90 mm[Hg] [facility] Heart rate 2024-08-12 14:29:00 86 /min [facility] Body temperature 2024-08-12 14:29:00 36.5 Dinorah [facility] Respiratory rate 2024-08-12 14:29:00 16 /min [facility] Body weight 2024-08-12 14:29:00 154.677 kg [facility] BMI 2024-08-12 14:29:00 56.75 kg/m2 [facility] Oxygen saturation in Arterial blood by Pulse oximetry 2024-08-12 14:29:00 96 /min [facility] Systolic blood pressure 2024-08-11 19:46:00 141 mm[Hg] [facility] Diastolic blood pressure 2024-08-11 19:46:00 89 mm[Hg] [facility] Heart rate 2024-08-11 19:45:00 89 /min [facility] Body height 2024-08-11 19:45:00 165.1 cm [facility] Body weight 2024-08-11 19:45:00 154.223 kg [facility] BMI 2024-08-11 19:45:00 56.58 kg/m2 [facility] Oxygen saturation in Arterial blood by Pulse oximetry 2024-08-11 19:45:00 97 /min [facility] Systolic blood pressure 2024-08-11 03:05:00 139 mm[Hg] [facility] Diastolic blood pressure 2024-08-11 03:05:00 69 mm[Hg] [facility] Heart rate 2024-08-11 03:05:00 86 /min [facility] Body temperature 2024-08-11 03:05:00 36.39 Dinorah [facility] Respiratory rate 2024-08-11 03:05:00 19 /min [facility] Oxygen saturation in Arterial blood by Pulse oximetry 2024-08-11 03:05:00 97 /min [facility] Body height 2024-08-10 21:15:00 165.1 cm [facility] Body weight 2024-08-10 21:15:00 154.223 kg [facility] BMI 2024-08-10 21:15:00 56.58 kg/m2 [facility] Systolic blood pressure 2024-08-10 20:37:00 138 mm[Hg] [facility] Diastolic blood pressure 2024-08-10 20:37:00 91 mm[Hg] [facility] Heart rate 2024-08-10 20:35:00 94 /min [facility] Body temperature 2024-08-10 20:35:00 36.28 Dinorah [facility] Body height 2024-08-10 20:35:00 165.1 cm [facility] Body weight 2024-08-10 20:35:00 154.495 kg [facility] BMI 2024-08-10 20:35:00 56.68 kg/m2 [facility] Oxygen saturation in Arterial blood by Pulse oximetry 2024-08-10 20:35:00 95 /min [facility] Body temperature 2024-07-30 20:36:00 35.78 Dinorah [facility] Body height 2024-07-30 20:36:00 165.1 cm [facility] Body weight 2024-07-30 20:36:00 152.771 kg [facility] BMI 2024-07-30 20:36:00 56.05 kg/m2 [facility] Systolic blood pressure 2024-06-18 20:13:00 145 mm[Hg] [facility] Diastolic blood pressure 2024-06-18 20:13:00 96 mm[Hg] [facility] Heart rate 2024-06-18 20:11:00 90 /min [facility] Body temperature 2024-06-18 20:11:00 36.39 Dinorah [facility] Body height 2024-06-18 20:11:00 165.1 cm [facility] Body weight 2024-06-18 20:11:00 151.501 kg [facility] BMI 2024-06-18 20:11:00 55.58 kg/m2 [facility] Oxygen saturation in Arterial blood by Pulse oximetry 2024-06-18 20:11:00 97 /min [facility] Heart rate 2024-05-04 14:17:00 105 /min [facility] Body temperature 2024-05-04 14:17:00 36.06 Dinorah [facility] Respiratory rate 2024-05-04 14:17:00 18 /min [facility] Body height 2024-05-04 14:17:00 165.1 cm [facility] Body weight 2024-05-04 14:17:00 155.039 kg [facility] BMI 2024-05-04 14:17:00 56.88 kg/m2 [facility] Oxygen saturation in Arterial blood by Pulse oximetry 2024-05-04 14:17:00 94 /min [facility] Systolic blood pressure 2024-04-23 14:17:00 140 mm[Hg] [facility] Diastolic blood pressure 2024-04-23 14:17:00 106 mm[Hg] [facility] Heart rate 2024-04-23 14:17:00 87 /min [facility] Body temperature 2024-04-23 14:17:00 36.17 Dinorah [facility] Oxygen saturation in Arterial blood by Pulse oximetry 2024-04-23 14:17:00 93 /min [facility] Body height 2024-04-23 14:12:00 165.1 cm [facility] Body weight 2024-04-23 14:12:00 159.439 kg [facility] BMI 2024-04-23 14:12:00 58.49 kg/m2 [facility] Systolic blood pressure 2024-04-21 12:38:00 146 mm[Hg] [facility] Diastolic blood pressure 2024-04-21 12:38:00 78 mm[Hg] [facility] Heart rate 2024-04-21 12:38:00 76 /min [facility] Body temperature 2024-04-21 12:38:00 36.61 Dinorah [facility] Respiratory rate 2024-04-21 12:38:00 18 /min [facility] Oxygen saturation in Arterial blood by Pulse oximetry 2024-04-21 12:38:00 99 /min [facility] Body height 2024-04-21 09:50:00 165.1 cm [facility] Body weight 2024-04-21 09:50:00 161.027 kg [facility] BMI 2024-04-21 09:50:00 59.08 kg/m2 [facility] Systolic blood pressure 2024-04-19 19:53:00 123 mm[Hg] [facility] Diastolic blood pressure 2024-04-19 19:53:00 84 mm[Hg] [facility] Heart rate 2024-04-19 19:53:00 86 /min [facility] Body height 2024-04-19 19:53:00 165.1 cm [facility] Body weight 2024-04-19 19:53:00 160.483 kg [facility] BMI 2024-04-19 19:53:00 58.88 kg/m2 [facility] Oxygen saturation in Arterial blood by Pulse oximetry 2024-04-19 19:53:00 96 /min [facility] Systolic blood pressure 2024-04-16 05:45:00 133 mm[Hg] [facility] Diastolic blood pressure 2024-04-16 05:45:00 94 mm[Hg] [facility] Heart rate 2024-04-16 05:45:00 94 /min [facility] Respiratory rate 2024-04-16 05:45:00 20 /min [facility] Oxygen saturation in Arterial blood by Pulse oximetry 2024-04-16 05:45:00 95 /min [facility] Body temperature 2024-04-15 23:47:00 36.61 Dinorah [facility] Body height 2024-04-15 23:43:00 165.1 cm [facility] Body weight 2024-04-15 23:43:00 154.223 kg [facility] BMI 2024-04-15 23:43:00 56.58 kg/m2 [facility] Systolic blood pressure 2024-04-14 00:00:00 143 mm[Hg] [facility] [facility] 2024-04-14 00:00:00 89 mm[Hg] [facility] Heart rate 2024-04-14 00:00:00 88 /min [facility] Body temperature 2024-04-14 00:00:00 36.94 Dinorah [facility] Respiratory rate 2024-04-14 00:00:00 18 /min [facility] Oxygen saturation in Arterial blood by Pulse oximetry 2024-04-14 00:00:00 97 /min [facility] Body height 2024-04-13 19:11:00 165.1 cm [facility] Body weight 2024-04-13 19:11:00 163.295 kg [facility] BMI 2024-04-13 19:11:00 59.91 kg/m2 [facility] Body height 2024-03-22 14:15:00 165.1 cm [facility] Body weight 2024-03-22 14:15:00 168.466 kg [facility] BMI 2024-03-22 14:15:00 61.80 kg/m2 [facility] Systolic blood pressure 2024-02-18 18:13:00 144 mm[Hg] [facility] Diastolic blood pressure 2024-02-18 18:13:00 90 mm[Hg] [facility] Heart rate 2024-02-18 18:11:00 102 /min [facility] Body temperature 2024-02-18 18:11:00 36.56 Dinorah [facility] Respiratory rate 2024-02-18 18:11:00 18 /min [facility] Body height 2024-02-18 18:11:00 165.1 cm [facility] Body weight 2024-02-18 18:11:00 164.61 kg [facility] BMI 2024-02-18 18:11:00 60.39 kg/m2 [facility] Oxygen saturation in Arterial blood by Pulse oximetry 2024-02-18 18:11:00 93 /min [facility] Systolic blood pressure 2024-01-28 01:45:00 174 mm[Hg] [facility] Diastolic blood pressure 2024-01-28 01:45:00 97 mm[Hg] [facility] Heart rate 2024-01-28 01:45:00 72 /min [facility] Respiratory rate 2024-01-28 01:45:00 18 /min [facility] Oxygen saturation in Arterial blood by Pulse oximetry 2024-01-28 01:45:00 95 /min [facility] Body temperature 2024-01-27 21:15:00 36.72 Dinorah [facility] Body weight 2024-01-27 21:15:00 158.759 kg [facility] BMI 2024-01-27 21:15:00 58.24 kg/m2 [facility] Body height 2024-01-27 21:13:00 165.1 cm [facility] Systolic blood pressure 2023-11-26 17:51:00 143 mm[Hg] [facility] Diastolic blood pressure 2023-11-26 17:51:00 99 mm[Hg] [facility] Heart rate 2023-11-26 17:47:00 95 /min [facility] Body temperature 2023-11-26 17:47:00 36.44 Dinorah [facility] Respiratory rate 2023-11-26 17:47:00 18 /min [facility] Body height 2023-11-26 17:47:00 162.6 cm [facility] Body weight 2023-11-26 17:47:00 157.171 kg [facility] BMI 2023-11-26 17:47:00 59.48 kg/m2 [facility] Oxygen saturation in Arterial blood by Pulse oximetry 2023-11-26 17:47:00 97 /min [facility] Systolic blood pressure 2023-10-10 19:40:00 113 mm[Hg] [facility] Diastolic blood pressure 2023-10-10 19:40:00 80 mm[Hg] [facility] Heart rate 2023-10-10 19:34:00 94 /min [facility] Body temperature 2023-10-10 19:34:00 35.94 Dinorah [facility] Respiratory rate 2023-10-10 19:34:00 18 /min [facility] Body height 2023-10-10 19:34:00 165.1 cm [facility] Body weight 2023-10-10 19:34:00 155.765 kg [facility] BMI 2023-10-10 19:34:00 57.14 kg/m2 [facility] Oxygen saturation in Arterial blood by Pulse oximetry 2023-10-10 19:34:00 96 /min [facility] Systolic blood pressure 2023-10-04 00:00:00 159 mm[Hg] [facility] Diastolic blood pressure 2023-10-04 00:00:00 98 mm[Hg] [facility] Heart rate 2023-10-04 00:00:00 88 /min [facility] Respiratory rate 2023-10-04 00:00:00 18 /min [facility] Oxygen saturation in Arterial blood by Pulse oximetry 2023-10-04 00:00:00 96 /min [facility] Body temperature 2023-10-03 21:06:00 37.33 Dinorah [facility] Body height 2023-10-03 21:06:00 165.1 cm [facility] Body weight 2023-10-03 21:06:00 156.491 kg [facility] BMI 2023-10-03 21:06:00 57.41 kg/m2 [facility] Systolic blood pressure 2023-05-07 03:00:00 145 mm[Hg] [facility] Diastolic blood pressure 2023-05-07 03:00:00 87 mm[Hg] [facility] Heart rate 2023-05-07 03:00:00 85 /min [facility] Respiratory rate 2023-05-07 03:00:00 16 /min [facility] Oxygen saturation in Arterial blood by Pulse oximetry 2023-05-07 03:00:00 97 /min [facility] Body temperature 2023-05-06 23:18:00 36.72 Dinorah [facility] Body height 2023-05-06 23:18:00 165.1 cm [facility] Body weight 2023-05-06 23:18:00 156.491 kg [facility] BMI 2023-05-06 23:18:00 57.41 kg/m2 [facility] Body temperature 2023-04-30 19:18:00 36.78 Dinorah [facility] Heart rate 2023-04-30 13:37:00 72 /min [facility] Respiratory rate 2023-04-30 13:37:00 16 /min [facility] Body height 2023-04-30 13:37:00 165.1 cm [facility] Body weight 2023-04-30 13:37:00 158.759 kg [facility] BMI 2023-04-30 13:37:00 58.24 kg/m2 [facility] Systolic blood pressure 2023-04-30 12:22:00 140 mm[Hg] [facility] Diastolic blood pressure 2023-04-30 12:22:00 82 mm[Hg] [facility] Oxygen saturation in Arterial blood by Pulse oximetry 2023-04-30 12:22:00 96 /min [facility] Systolic blood pressure 2023-04-29 05:25:00 142 mm[Hg] [facility] Diastolic blood pressure 2023-04-29 05:25:00 87 mm[Hg] [facility] Heart rate 2023-04-29 05:25:00 81 /min [facility] Body temperature 2023-04-29 05:25:00 36.5 Dinorah [facility] Respiratory rate 2023-04-29 05:25:00 16 /min [facility] Oxygen saturation in Arterial blood by Pulse oximetry 2023-04-29 05:25:00 93 /min [facility] Body height 2023-04-28 13:19:00 165.1 cm [facility] Body weight 2023-04-28 13:19:00 158.759 kg [facility] BMI 2023-04-28 13:19:00 58.24 kg/m2 [facility] Systolic blood pressure 2023-04-25 18:56:00 133 mm[Hg] [facility] Diastolic blood pressure 2023-04-25 18:56:00 81 mm[Hg] [facility] Heart rate 2023-04-25 18:56:00 86 /min [facility] Respiratory rate 2023-04-25 18:56:00 18 /min [facility] Oxygen saturation in Arterial blood by Pulse oximetry 2023-04-25 18:56:00 98 /min [facility] Body temperature 2023-04-25 18:26:00 36.72 Dinorah [facility] Body height 2023-04-25 16:53:00 165.1 cm [facility] Body weight 2023-04-25 16:53:00 158.759 kg [facility] BMI 2023-04-25 16:53:00 58.24 kg/m2 [facility] Systolic blood pressure 2023-04-09 00:03:00 172 mm[Hg] [facility] Diastolic blood pressure 2023-04-09 00:03:00 102 mm[Hg] [facility] Heart rate 2023-04-09 00:03:00 105 /min [facility] Body temperature 2023-04-09 00:03:00 37.22 Dinorah [facility] Respiratory rate 2023-04-09 00:03:00 18 /min [facility] Oxygen saturation in Arterial blood by Pulse oximetry 2023-04-09 00:03:00 98 /min [facility] Body height 2023-04-08 21:33:00 165.1 cm [facility] Body weight 2023-04-08 21:33:00 163.295 kg [facility] BMI 2023-04-08 21:33:00 59.91 kg/m2 [facility] Systolic blood pressure 2023-03-14 21:55:00 169 mm[Hg] [facility] Diastolic blood pressure 2023-03-14 21:55:00 109 mm[Hg] [facility] Heart rate 2023-03-14 21:55:00 97 /min [facility] Body temperature 2023-03-14 21:55:00 37.5 Dinorah [facility] Respiratory rate 2023-03-14 21:55:00 20 /min [facility] Body weight 2023-03-14 21:55:00 161.934 kg [facility] BMI 2023-03-14 21:55:00 59.41 kg/m2 [facility] Oxygen saturation in Arterial blood by Pulse oximetry 2023-03-14 21:55:00 97 /min [facility] Systolic blood pressure 2023-03-13 15:58:00 135 mm[Hg] BP recheck Dr. Smalls notified [facility] Diastolic blood pressure 2023-03-13 15:58:00 91 mm[Hg] BP recheck Dr. Smalls notified [facility] Heart rate 2023-03-13 15:58:00 85 /min [facility] Body temperature 2023-03-13 15:56:00 36.44 Dinorah [facility] Respiratory rate 2023-03-13 15:56:00 20 /min [facility] Body height 2023-03-13 15:56:00 165.1 cm [facility] Body weight 2023-03-13 15:56:00 162.206 kg [facility] BMI 2023-03-13 15:56:00 59.51 kg/m2 [facility] Oxygen saturation in Arterial blood by Pulse oximetry 2023-03-13 15:56:00 96 /min [facility] Systolic blood pressure 2023-03-12 01:00:00 131 mm[Hg] [facility] Diastolic blood pressure 2023-03-12 01:00:00 72 mm[Hg] [facility] Heart rate 2023-03-12 01:00:00 74 /min [facility] Respiratory rate 2023-03-12 01:00:00 18 /min [facility] Oxygen saturation in Arterial blood by Pulse oximetry 2023-03-12 01:00:00 98 /min [facility] Body temperature 2023-03-11 22:41:00 36.83 Dinorah [facility] Body weight 2023-03-11 22:41:00 162.388 kg [facility] BMI 2023-03-11 22:41:00 59.57 kg/m2 [facility] Systolic blood pressure 2023-02-26 21:16:00 143 mm[Hg] [facility] Diastolic blood pressure 2023-02-26 21:16:00 97 mm[Hg] [facility] Heart rate 2023-02-26 21:16:00 86 /min [facility] Body temperature 2023-02-26 21:01:00 36 Dinorah [facility] Respiratory rate 2023-02-26 21:01:00 18 /min [facility] Oxygen saturation in Arterial blood by Pulse oximetry 2023-02-26 21:01:00 95 /min [facility] Body weight 2023-02-26 08:15:00 166.47 kg [facility] BMI 2023-02-26 08:15:00 61.07 kg/m2 [facility] Body height 2023-02-26 01:35:00 165.1 cm [facility] Systolic blood pressure 2023-02-03 04:00:00 150 mm[Hg] [facility] Diastolic blood pressure 2023-02-03 04:00:00 112 mm[Hg] [facility] Heart rate 2023-02-03 04:00:00 95 /min [facility] Respiratory rate 2023-02-03 04:00:00 20 /min [facility] Oxygen saturation in Arterial blood by Pulse oximetry 2023-02-03 04:00:00 95 /min [facility] Body temperature 2023-02-03 00:27:00 37.39 Dinorah [facility] Body height 2023-02-03 00:27:00 165.1 cm [facility] Body weight 2023-02-03 00:27:00 174.136 kg [facility] BMI 2023-02-03 00:27:00 63.88 kg/m2 [facility] Systolic blood pressure 2022-05-21 18:29:00 154 mm[Hg] [facility] Diastolic blood pressure 2022-05-21 18:29:00 117 mm[Hg] [facility] Heart rate 2022-05-21 18:29:00 106 /min [facility] Body temperature 2022-05-21 18:29:00 37.22 Dinorah [facility] Respiratory rate 2022-05-21 18:29:00 22 /min [facility] Body height 2022-05-21 18:29:00 165.1 cm [facility] Body weight 2022-05-21 18:29:00 158.759 kg [facility] BMI 2022-05-21 18:29:00 58.24 kg/m2 [facility] Oxygen saturation in Arterial blood by Pulse oximetry 2022-05-21 18:29:00 95 /min [facility] Systolic blood pressure 2022-04-23 19:30:00 128 mm[Hg] [facility] Diastolic blood pressure 2022-04-23 19:30:00 85 mm[Hg] [facility] Heart rate 2022-04-23 19:28:00 90 /min [facility] Body temperature 2022-04-23 19:28:00 35.67 Dinorah [facility] Respiratory rate 2022-04-23 19:28:00 18 /min [facility] Body height 2022-04-23 19:28:00 165.1 cm [facility] Body weight 2022-04-23 19:28:00 170.099 kg [facility] BMI 2022-04-23 19:28:00 62.40 kg/m2 [facility] Oxygen saturation in Arterial blood by Pulse oximetry 2022-04-23 19:28:00 98 /min room air [facility] Procedures Procedure Date / Time Performed Performing Clinician Source DME/SUPPLY JUSTIFICATION 2025-01-20 19:38:51 Doctor Unassigned, [facility] SLEEP STUDY DATA REPORT 2024-12-02 21:23:35 Doctor Unassigned, [facility] SLEEP LAB RESULTS 2024-12-02 21:22:30 Shruthi Conte [facility] FL UPPER GI SERIES 2024-11-19 16:40:00 Heidi Mccullough [facility] US ABDOMEN LIMITED 2024-11-19 16:08:02 Heidi Mccullough [facility] CBC WITH DIFF 2024-10-19 21:10:00 Ирина Langford [facility] THYROID STIMULATING HORMONE 2024-10-12 20:21:00 Sabino Simmons [facility] COMP. METABOLIC PANEL (79355) 2024-10-12 20:21:00 Sabino Simmons [facility] CBC WITH DIFF 2024-10-12 20:21:00 Iris pro [facility] ENDOSCOPY PROCEDURE DOCUMENTATION 1-17 13:02:29 Doctor Unassigned, [facility] EGD (ENDO) 2024-08-12 16:27:45 Sabino Simmons [facility] EGD (ENDO) 2024-08-12 16:27:45 Sabino Simmons [facility] ESOPHAGOGASTRODUODENOSCOPY 2024-08-12 15:57:00 Matilda Mcgregor [facility] EKG-12 LEAD 2024-08-11 02:43:52 Cristi Panchal [facility] POCT TEST 2024-08-11 01:36:00 Cristi Panchal [facility] LIPASE 2024-08-11 00:12:00 Cristi Panchal [facility] COMP. METABOLIC PANEL ([id number]) 2024-08-11 00:12:00 Cristi Panchal [facility] CBC WITH DIFF 2024-08-11 00:11:00 Cristi Panchal [facility] URINALYSIS 2024-08-11 00:10:00 Cristi Panchal [facility] TRANSTHORACIC ECHO (TTE) COM PLETE W/ CONTRAST 2024-07-13 22:38:24 Gloria Heck [facility] FLU VACC (), 6 MO-6 4 YRS, .5ML, IM, TIV (FLUCELVAX) 2024-06-18 21:12:17 [facility] POCT URINALYSIS 2024-04-23 15:17:00 Roland [facility] CT ABDOMEN PELVIS WO CONTRAST 2024-04-21 11:27:02 Saurav Loja [facility] LIPASE 2024-04-16 01:53:00 Iwona Mcduffie [facility] COMP. METABOLIC PANEL ([id number]) 2024-04-16 01:53:00 Iwona Mcduffie [facility] CBC WITH DIFF 2024-04-16 01:53:00 Iwona Mcduffie [facility] URINALYSIS 2024-04-16 01:53:00 Iwona Mcduffie [facility] POCT TEST 2024-04-16 01:50:00 Iwona Mcduffie [facility] CT ABDOMEN PELVIS W CONTRAST 2024-04-13 21:44:40 Nadiya Bellamy [facility] POCT TEST 2024-04-13 20:30:00 Nadiya Bellamy [facility] LIPASE 2024-04-13 20:27:00 Nadiya Bellamy [facility] COMP. METABOLIC PANEL ([id number]) 2024-04-13 20:27:00 Nadiya Bellamy [facility] CBC WITH DIFF 2024-04-13 20:27:00 Nadiya Bellamy [facility] URINALYSIS 2024-04-13 20:27:00 Nadiya Bellamy [facility] US DUPLEX VENOUS ARMS BILATE RAL - BY VASCULAR LAB 2024-04-02 20:51:41 Sabino Simmons [facility] DUPLEX VENOUS LEGS BILATERAL - BY VASCULAR LAB 2024-04-02 20:51:36 Sabino Simmons [facility] DME/SUPPLY JUSTIFICATION 2024-01-28 13:07:27 Doctor Unassigned, [facility] URINALYSIS 2024-01-28 01:22:00 Kinsey Malcolm [facility] POCT TEST 2024-01-28 01:22:00 Kinsey Malcolm [facility] CT ABDOMEN PELVIS W CONTRAST 2024-01-28 00:41:02 Kinsey Malcolm [facility] LIPASE 2024-01-27 23:30:00 Kinsey Malcolm [facility] COMP. METABOLIC PANEL ([id number]) 2024-01-27 23:30:00 Kinsey Malcolm [facility] CBC WITH DIFF 2024-01-27 23:30:00 Kinsey Malcolm [facility] TROPONIN I 2023-10-03 21:38:00 [facility] BASIC METABOLIC PANEL (NA, K , CL, CO2, GLUCOSE, BUN, CREATININE, CA) 2023-10-03 21:38:00 [facility] CBC WITH DIFF 2023-10-03 21:38:00 Kinsey Parker [facility] XR CHEST 1 VW 2023-10-03 21:16:00 Kinsey Parker [facility] CT ABDOMEN PELVIS W CONTRAST 2023-05-07 01:53:39 Alice Pena [facility] POCT TEST 2023-05-06 23:53:00 Alice Pena [facility] LIPASE 2023-05-06 23:51:00 Alice Pena [facility] COMP. METABOLIC PANEL ([id number]) 2023-05-06 23:51:00 Alice Pena [facility] CBC WITH DIFF 2023-05-06 23:51:00 Alice Pena [facility] PROTHROMBIN TIME / INR 2023-05-06 23:51:00 Alice Pena [facility] ACTIVATED PARTIAL THRMPLAS CARLO 2023-04-27 0 23:51:00 Alice Pena [facility] URINALYSIS 2023-05-06 23:51:00 Alice Pena [facility] CONSENT/REFUSAL FOR DIAGNOSI S AND TREATMENT 2023-05-06 23:11:21 Doctor Unassigned, [facility] MAGNESIUM 2023-04-30 18:22:00 Ever [facility] BASIC METABOLIC PANEL (NA, K , CL, CO2, GLUCOSE, BUN, CREATININE, CA) 2023-04-30 18:22:00 Ever [facility] MAGNESIUM 2023-04-30 18:22:00 Ever [facility] BASIC METABOLIC PANEL (NA, K , CL, CO2, GLUCOSE, BUN, CREATININE, CA) 2023-04-30 18:22:00 Ever [facility] CBC WITH DIFF 2023-04-30 10:34:00 Ever [facility] CBC WITH DIFF 2023-04-30 10:34:00 Eevr [facility] DUPLEX VENOUS ARM LEFT - BY VASCULAR LAB 2023-04-29 16:08:41 Ron Hurt [facility] DUPLEX VENOUS ARM LEFT - BY VASCULAR LAB 2023-04-29 16:08:[address] [facility] LAPAROSCOPIC ROBOTIC ASSISTE D CHOLECYSTECTOMY 2023-04-29 11:49:00 Sadia [facility] LAPAROSCOPIC ROBOTIC ASSISTE D CHOLECYSTECTOMY 2023-04-29 11:49:00 Heidi Mccullough [facility] PHOSPHORUS 2023-04-29 09:05:[address] [facility] MAGNESIUM 2023-04-29 09:05:[address] [facility] HEPATIC FUNCTION PANEL (8007 [id number]) (ALB,T.PRO,BILI T,BU/BC,ALT,AST,ALK PHOS) 2023-04-29 09:05:[address] [facility] CBC WITHOUT DIFF 2023-04-29 09:05:00 Nipper, [facility] PHOSPHORUS 2023-04-29 09:05:00 Nipper, [facility] MAGNESIUM 2023-04-29 09:[facility] (8007 6[facility] (ALB,T.PRO,BILI T,BU/BC,ALT,AST,ALK PHOS) 2023-04-29 09:05[facility] CBC WITHOUT DIFF 2023-04-29 09:05:00 [facility] HB ABO GROUPING 2023-04-28 19:02:00 [facility] HB ABO GROUPING 2023-04-28 19:02:00 [facility] HB ABO GROUPING 2023-04-28 19:02:00 [facility] PHOSPHORUS 2023-04-28 09:26:00 Nipper [facility] MAGNESIUM 2023-04-28 09:[facility] ([phone]) (ALB,T.PRO,BILI T,BU/BC,ALT,AST,ALK PHOS) 2023-04-28 09:26:00 [facility] BASIC METABOLIC PANEL (NA, K , CL, CO2, GLUCOSE, BUN, CREATININE, CA) 2023-04-28 09:26:00 [facility] CBC WITHOUT DIFF 2023-04-28 09:26:00 [facility] PHOSPHORUS 2023-04-28 09:26:00 Nipper, [facility] MAGNESIUM 2023-04-28 09:26:00 Nipper, [facility] HEPATIC FUNCTION PANEL (8007 6) (ALB,T.PRO,BILI T,BU/BC,ALT,AST,ALK PHOS) 2023-04-28 09:26[facility]00 [facility]OLIC PAN[facility] (NA, K , CL, CO2, GLUCOSE, BUN, CREATININE, CA) 2023-04-28 09:26:00 Nipper, [facility] CBC WITHOUT DIFF 2023-04-28 09:26:00 Nipper, [facility] PHOSPHORUS 2023-04-28 09:26:00 Nipper, [facility] MAGNESIUM 2023-04-28 09:26[facility] (8007 6) (ALB,T.PRO,BILI T,BU/BC,ALT,AST,ALK PHOS) 2023-04-28 09:26:00 Nipper, [facility] BASIC METABOLIC PANEL (NA, K , CL, CO2, GLUCOSE, BUN, CREATININE, CA) 2023-04-28 09:26:00 Nipper, [facility] CBC WITHOUT DIFF 2023-04-28 09:26[facility] 2023-04-27 10:46:00 Nipper, [facility] MAGNESIUM 2023-04-27 10:46:00 Nipper, [facility] HEPATIC FUNCTION PANEL (8007 6) (ALB,T.PRO,BILI T,BU/BC,ALT,AST,ALK PHOS) 2023-04-27 10:46:00 Nipper, [facility] BASIC METABOLIC PANEL (NA, K , CL, CO2, GLUCOSE, BUN, CREATININE, CA) 2023-04-27 10:46:00 Nipper, [facility] CBC WITHOUT DIFF 2023-04-27 10:46:00 Nipper, [facility] PHOSPHORUS 2023-04-27 10:46:00 Nipper, [facility] MAGNESIUM 2023-04-27 10:46:00 Nipper, [facility] HEPATIC FUNCTION PANEL (8007 6) (ALB,T.PRO,BILI T,BU/BC,ALT,AST,ALK PHOS) 2023-04-27 10:46:00 Nipper, [facility] BASIC METABOLIC PANEL (NA, K , CL, CO2, GLUCOSE, BUN, CREATININE, CA) 2023-04-27 10:46:00 Nipper, [facility] CBC WITHOUT DIFF 2023-04-27 10:46:00 Nipper, [facility] PHOSPHORUS 2023-04-27 10:46:00 Nipper, [facility] MAGNESIUM 2023-04-27 10:46:00 Nipper, [facility] HEPATIC FUNCTION PANEL (8007 6) (ALB,T.PRO,BILI T,BU/BC,ALT,AST,ALK PHOS) 2023-04-27 10:46:00 Nipper, [facility] BASIC METABOLIC PANEL (NA, K , CL, CO2, GLUCOSE, BUN, CREATININE, CA) 2023-04-27 10:46:00 Nipper, [facility] CBC WITHOUT DIFF 2023-04-27 10:46:00 Nipper, [facility] PHOSPHORUS 2023-04-26 10:34:00 Nipper, [facility] LIPASE 2023-04-26 [facility] 10:34:00 Nipper, [facility] HEPATIC FUNCTION PANEL (8007 6) (ALB,T.PRO,BILI T,BU/BC,ALT,AST,ALK PHOS) 2023-04-26 10:34:00 Nipper, [facility] BASIC METABOLIC PANEL (NA, K , CL, CO2, GLUCOSE, BUN, CREATININE, CA) 2023-04-26 10:34:00 Nipper, [facility] CBC WITHOUT DIFF 2023-04-26 10:34:00 Nipper, [facility] PHOSPHORUS 2023-04-26 10:34:00 Nipper, [facility] LIPASE 2023-04-26 10:34[facility]-26 10:34:00 Nipper, [facility] HEPATIC FUNCTION PANEL (8007 6) (ALB,T.PRO,BILI T,BU/BC,ALT,AST,ALK PHOS) 2023-04-26 10:34:00 Licha [facility] BASIC METABOLIC PANEL (NA, K , CL, CO2, GLUCOSE, BUN, CREATININE, CA) 2023-04-26 10:34:00 Licha, [facility] CBC WITHOUT DIFF 2023-04-26 10:34:00 Nipglynn [facility] PHOSPHORUS 2023-04-26 10:34:00 Nipglynn [facility] LIPASE 2023-04-26 10:34:00 Guba [facility] MAGNESIUM 2023-04-26 10:34:00 Licha [facility] HEPATIC FUNCTION PANEL (8007 6) (ALB,T.PRO,BILI T,BU/BC,ALT,AST,ALK PHOS) 2023-04-26 10:34:00 Licha [facility] BASIC METABOLIC PANEL (NA, K , CL, CO2, GLUCOSE, BUN, CREATININE, CA) 2023-04-26 10:34:00 Licha, [facility] CBC WITHOUT DIFF 2023-04-26 10:34:00 Licha [facility] SURGICAL PATHOLOGY EXAM 2023-04-25 18:13:00 [facility] SURGICAL PATHOLOGY EXAM 2023-04-25 18:13:00 [facility] ESOPHAGOGASTRODUODENOSCOPY 2023-04-25 17:40:00 [facility] ESOPHAGOGASTRODUODENOSCOPY 2023-04-25 17:40:00 [facility] EGD (ENDO) 2023-04-25 16:55:25 Clarice Chauhan [facility] EGD (ENDO) 2023-04-25 16:55:25 Clarice Chauhan [facility] EGD (ENDO) 2023-04-25 16:55:25 Clarice Chauhan [facility] PHOSPHORUS 2023-04-25 10:33:00 Ron Hurt [facility] MAGNESIUM 2023-04-25 10:33:00 Nipper [facility] HEPATIC FUNCTION PANEL (8007 6) (ALB,T.PRO,BILI T,BU/BC,ALT,AST,ALK PHOS) 2023-04-25 10:33:00 Nipglynn [facility] BASIC METABOLIC PANEL (NA, K , CL, CO2, GLUCOSE, BUN, CREATININE, CA) 2023-04-25 10:33:00 Nipper, [facility] CBC WITHOUT DIFF 2023-04-25 10:33:00 Nipglynn [facility] PHOSPHORUS 2023-04-25 10:33:00 Nipper [facility] MAGNESIUM 2023-04-25 10:33:00 Nipglynn [facility] HEPATIC FUNCTION PANEL (8007 6) (ALB,T.PRO,BILI T,BU/BC,ALT,AST,ALK PHOS) 2023-04-25 10:33:00 Nipglynn [facility] BASIC METABOLIC PANEL (NA, K , CL, CO2, GLUCOSE, BUN, CREATININE, CA) 2023-04-25 10:33:00 Nipglynn, [facility] CBC WITHOUT DIFF 2023-04-25 10:33:00 Nipper [facility] PHOSPHORUS 2023-04-25 10:33:00 Nipper, [facility] MAGNESIUM 2023-04-25 10:33:00 Nipglynn [facility] HEPATIC FUNCTION PANEL (8007 6) (ALB,T.PRO,BILI T,BU/BC,ALT,AST,ALK PHOS) 2023-04-25 10:33:00 Nipper, [facility] BASIC METABOLIC PANEL (NA, K , CL, CO2, GLUCOSE, BUN, CREATININE, CA) 2023-04-25 10:33:00 Nipper, [facility] CBC WITHOUT DIFF 2023-04-25 10:33:00 [facility] ENDOSCOPY PROCEDURE DOCUMENTATION 04-25 05:01:00 Doctor Unassigned, [facility] ENDOSCOPY PROCEDURE DOCUMENTATION 04-25 05:01:00 Doctor Unassigned, [facility] ENDOSCOPY PROCEDURE DOCUMENTATION 04-25 05:01:00 Doctor Unassigned, [facility] POCT TEST 2023-04-25 00:00:00 Dottie [facility] POCT TEST 2023-04-25 00:00:00 Dottie [facility] POCT TEST 2023-04-25 00:00:00 Dottie [facility] PHOSPHORUS 2023-04-24 10:22:00 Nipglynn, [facility] MAGNESIUM 2023-04-24 10:22:00 Nipper, [facility] HEPATIC FUNCTION PANEL (8007 6) (ALB,T.PRO,BILI T,BU/BC,ALT,AST,ALK PHOS) 2023-04-24 10:22:00 Nipglynn [facility] BASIC METABOLIC PANEL (NA, K , CL, CO2, GLUCOSE, BUN, CREATININE, CA) 2023-04-24 10:22:00 Nipper, [facility] CBC WITHOUT DIFF 2023-04-24 10:22:00 Nipper, [facility] PHOSPHORUS 2023-04-24 10:22:00 Nipper, [facility] MAGNESIUM 2023-04-24 10:22:00 Nipper, [facility] HEPATIC FUNCTION PANEL (8007 6) (ALB,T.PRO,BILI T,BU/BC,ALT,AST,ALK PHOS) 2023-04-24 10:22:00 Nipper, [facility] BASIC METABOLIC PANEL (NA, K , CL, CO2, GLUCOSE, BUN, CREATININE, CA) 2023-04-24 10:22:00 Nipper, [facility] CBC WITHOUT DIFF 2023-04-24 10:22:00 Nipper, [facility] PHOSPHORUS 2023-04-24 10:22:00 Nipper, [facility] MAGNESIUM 2023-04-24 10:22:00 Nipper, [facility] HEPATIC FUNCTION PANEL (8007 6) (ALB,T.PRO,BILI T,BU/BC,ALT,AST,ALK PHOS) 2023-04-24 10:22:00 [facility] BASIC METABOLIC PANEL (NA, K , CL, CO2, GLUCOSE, BUN, CREATININE, CA) 2023-04-24 10:22:00 [facility] CBC WITHOUT DIFF 2023-04-24 10:22:00 Nipper, [facility] PHOSPHORUS 2023-04-23 09:58:00 Nipper, [facility] MAGNESIUM 2023-04-23 09:58:00 [facility] HEPATIC FUNCTION PANEL (8007 6) (ALB,T.PRO,BILI T,BU/BC,ALT,AST,ALK PHOS) 2023-04-23 09:58[facility] (NA, K , CL, CO2, GLUCOSE, BUN, CREATININE, CA) 2023-04-23 09:58:00 Nipper, [facility] CBC WITHOUT DIFF 2023-04-23 09:58:00 Nipper, [facility] PHOSPHORUS 2023-04-23 09:58:00 Nipper, [facility] MAGNESIUM 2023-04-23 09:58:00 [facility] HEPATIC FUNCTION PANEL (8007 6) (ALB,T.PRO,BILI T,BU/BC,ALT,AST,ALK PHOS) 2023-04-23 09:58:00 [facility] BASIC METABOLIC PANEL (NA, K , CL, CO2, GLUCOSE, BUN, CREATININE, CA) 2023-04-23 09:58:00 Nipper, [facility] CBC WITHOUT DIFF 2023-04-23 09:58:00 Nipper, [facility] PHOSPHORUS 2023-04-23 09:58:00 Nipper, [facility] MAGNESIUM 2023-04-23 09:58:00 Nipper, [facility] HEPATIC FUNCTION PANEL (8007 6) (ALB,T.PRO,BILI T,BU/BC,ALT,AST,ALK PHOS) 2023-04-23 09:58:00 Licha [facility] BASIC METABOLIC PANEL (NA, K , CL, CO2, GLUCOSE, BUN, CREATININE, CA) 2023-04-23 09:58:00 Licha [facility] CBC WITHOUT DIFF 2023-04-23 09:58:00 Licha [facility] CT ABDOMEN PELVIS W CONTRAST 2023-04-23 01:21:37 [facility] CT ABDOMEN PELVIS W CONTRAST 2023-04-23 01:21:37 Licha [facility] CT ABDOMEN PELVIS W CONTRAST 2023-04-23 01:21:37 Licha [facility] US ABDOMEN LIMITED 2023-04-22 03:10:58 [facility] US ABDOMEN LIMITED 2023-04-22 03:10:58 [facility] US ABDOMEN LIMITED 2023-04-22 03:10:58 [facility] HB ECG ROUTINE & RHYTHM STRIP 2023-04-22 00:59:17 [facility] HB ECG ROUTINE & RHYTHM STRIP 2023-04-22 00:59:17 [facility] HB ECG ROUTINE & RHYTHM STRIP 2023-04-22 00:59:17 [facility] URINALYSIS 2023-04-22 00:31:00 [facility] URINE DRUG (IMMUNOASSAY) - COMPREHENSIVE DRUG SCREEN W/O REFLEX 2023-04-22 00:31:00 [facility] URINALYSIS 2023-04-22 00:31:00 [facility] URINE DRUG (IMMUNOASSAY) - COMPREHENSIVE DRUG SCREEN W/O REFLEX 2023-04-22 00:31:00 [facility] URINALYSIS 2023-04-22 00:31:00 [facility] URINE DRUG (IMMUNOASSAY) - COMPREHENSIVE DRUG SCREEN W/O REFLEX 2023-04-22 00:31:00 [facility] LIPASE 2023-04-21 23:34:00 [facility] TEST, SERUM 2023-04-21 23:34:00 [facility] COMP. METABOLIC PANEL (58133) 2023-04-21 23:34:00 [facility] CBC WITH DIFF 2023-04-21 23:34:00 [facility] LIPASE 2023-04-21 23:34:00 [facility] TEST, SERUM 2023-04-21 23:34:00 [facility] COMP. METABOLIC PANEL (90369) 2023-04-21 23:34:00 [facility] CBC WITH DIFF 2023-04-21 23:34:00 [facility] LIPASE 2023-04-21 23:34:00 [facility] TEST, SERUM 2023-04-21 23:34:00 [facility] COMP. METABOLIC PANEL (35358) 2023-04-21 23:34:00 [facility] CBC WITH DIFF 2023-04-21 23:34:00 [facility] CONSENT/REFUSAL FOR DIAGNOSI S AND TREATMENT 2023-04-21 21:17:49 Doctor Unassigned, [facility] CONSENT/REFUSAL FOR DIAGNOSI S AND TREATMENT 2023-04-21 21:17:49 Doctor Unassigned, [facility] CONSENT/REFUSAL FOR DIAGNOSI S AND TREATMENT 2023-04-21 21:17:49 Doctor Unassigned, [facility] ASSIGNMENT OF BENEFITS 2023-04-08 23:48:11 Doctor Unassigned, [facility] CT LUMBAR SPINE WO CONTRAST 2023-04-08 22:48:53 Kate Hilton [facility] URINALYSIS 2023-04-08 22:20:00 Kate Hilton [facility] CONSENT/REFUSAL FOR DIAGNOSI S AND TREATMENT 2023-04-08 21:27:01 Doctor Unassigned, [facility] COVID-19 (ID NOW RAPID TESTING) 22:00:00 Kassy Gutierrez [facility] CONSENT/REFUSAL FOR DIAGNOSI S AND TREATMENT 2023-03-14 21:53:37 Doctor Unassigned, [facility] DISCLOSURE AND CONSENT, MEDI HARPREET AND SURGICAL PROCEDURES 2023-03-13 05:01:00 Doctor Unassigned, [facility] LIPASE 2023-03-12 00:30:00 Stephen [facility] TROPONIN I 2023-03-12 00:30[facility] METABOLIC PANEL (35298) 2023-03-12 00:30:00 Stephen [facility] CBC WITH DIFF 2023-03-12 00:30:00 Stephen [facility] URINALYSIS 2023-03-12 00:30:00 Zeynep Mitchell [facility] ASSIGNMENT OF BENEFITS 2023-03-11 23:33:23 Doctor Unassigned, [facility] CONSENT/REFUSAL FOR DIAGNOSI S AND TREATMENT 2023-03-11 22:27:28 Doctor Unassigned, [facility] TROPONIN I 2023-02-26 19:05:00 Justen Patton [facility] HEPATIC FUNCTION PANEL (8007 6) (ALB,T.PRO,BILI T,BU/BC,ALT,AST,ALK PHOS) 2023-02-26 19:05:00 Erika Pelaez [facility] US ABDOMEN COMPLETE 2023-02-26 17:32:44 Roman Mena [facility] TRANSTHORACIC ECHO (TTE) COMPLETE 02-26 13:45:00 Justen Patton [facility] TROPONIN I 2023-02-26 09:16:00 Justen Patton [facility] TROPONIN I 2023-02-26 01:13:00 Justen Patton [facility] URINALYSIS 2023-02-25 22:26:00 Bairon Meyers [facility] CT STROKE ANGIOGRAM HEAD 2023-02-25 20:59:00 Bairon Meyers [facility] CT STROKE ANGIOGRAM NECK 2023-02-25 20:59:00 Bairon Meyers [facility] CT STROKE HEAD WO CONTRAST 2023-02-25 20:46:55 Bairon Meyers [facility] TROPONIN I 2023-02-25 20:31:00 Bairon Meyers [facility] THYROID STIMULATING HORMONE 2023-02-25 20:31:00 Justen Patton [facility] BASIC METABOLIC PANEL (NA, K , CL, CO2, GLUCOSE, BUN, CREATININE, CA) 2023-02-25 20:31:00 Bairon Meyers [facility] LIPID PANEL (52686)(TOTAL CHOLESTEROL, TRIGLYCERIDES, HDL) 2023-02-25 20:31:00 Justen Patton [facility] CBC WITHOUT DIFF 2023-02-25 20:31:00 Bairon Meyers [facility] PROTHROMBIN TIME / INR 2023-02-25 20:31:00 Bairon Meyers [facility] ACTIVATED PARTIAL THRMPLAS CARLO 1 20:31:00 Bairon Meyers [facility] CT ABDOMEN PELVIS W CONTRAST 2023-02-03 01:48:38 Saurav Loja [facility] POCT TEST 2023-02-03 00:43:00 Saurav Loja [facility] URINALYSIS 2023-02-03 00:40:00 Saurav Loja [facility] LIPASE 2023-02-03 00:39:00 Saurav Loja [facility] COMP. METABOLIC PANEL (81206) 2023-02-03 00:39:00 Saurav Loja [facility] CBC WITH DIFF 2023-02-03 00:39:00 Saurav Loja [facility] NOTICE OF PRIVACY PRACTICES 2023-02-03 00:17:34 Doctor Unassigned, [facility] CONSENT/REFUSAL FOR DIAGNOSI S AND TREATMENT 2023-02-03 00:14:58 Doctor Unassigned, [facility] COVID-19 (ID NOW RAPID TESTING) 18:42:00 Kassy Gutierrez [facility] CONSENT/REFUSAL FOR DIAGNOSI S AND TREATMENT 2022-05-21 18:23:51 Doctor Unassigned, [facility] COVID-19 (MOLECULAR TESTING NUCLEIC ACID AMPLIFICATION) 2022-04-23 19:40:00 Rasta Anne [facility] LAB ONLY COVID INTERPRETATION 2022-04-23 19:40:00 Rasta Anne [facility] POCT MOLECULAR FLU 2022-04-23 19:35:00 Osorio Flanagan [facility] ASSIGNMENT OF BENEFITS 2022-03-13 21:28:15 Doctor Unassigned, [facility] DERMATOPATHOLOGY TISSUE EXAM 2021-05-25 00:00:00 Sanket Mcpherson [facility] Encounters Start Date/Time End Date/Time Encounter Type Admission Type Attending [facility] Care Facility Care Department Encounter ID Source 2023-05-01 10:38:09 Outpatient R EKTA ESPINOZA [facility] [place] [id number] [facility] 2021-05-29 09:09:[address] [facility] [id number] [facility] 2021-05-28 09:54:12 Outpatient P [facility] [place] [id number] [facility] 2021-05-28 09:46:[address] [facility] [id number] [facility] 2021-05-27 12:42:[address] [facility] [id number] [facility] 2021-05-26 21:03:[address] [facility] [id number] [facility] 2024-10-26 00:00:00 2025-03-02 11:48:31 Ирина Olsen [facility] [place] ([facility]) 1.2.840.114 350.1.13.10 4.2.7.2.686 [id number] [facility] 2025-02-28 00:00:00 2025-02-28 16:03:08 Telephone Heidi Mccullough [facility] [place] 1.2.840.114 350.1.13.10 4.2.7.2.686 [id number] [facility] 2025-02-28 10:15:00 2025-02-28 10:15:00 Outpatient R ELIGIO STERLING [facility] [id number] [facility] 2025-02-17 13:17:15 2025-02-17 23:59:00 Hospital Encounter Tasha MORINCIPRIANO MYALarisa [facility] 1.2.840.114 350.1.13.10 4.2.7.2.686 [id number] [facility] 2025-02-17 13:00:00 2025-02-17 13:30:00 [facility] 1.2.840.114 350.1.13.10 4.2.7.2.686 [id number] [facility] 2025-02-14 10:30:00 2025-02-14 10:30:00 Outpatient R HEIDI MCCULLOUGH [facility] [id number] [facility] 2025-02-11 00:00:00 2025-02-11 00:00:00 Outpatient R SABINO SIMMONS OGECHUKWU [facility] [id number] [facility] 2025-01-31 16:00:00 2025-01-31 16:00:00 Outpatient R C[facility]ANOMYA [facility] [id number] [facility] 2025-01-26 08:00:00 2025-01-26 08:00:[address] [facility] [id number] [facility] 2025-01-25 00:00:00 2025-01-25 16:37:05 Telephone Heidi Mccullough [facility] 1.2840.114 350.1.13.10 4.2.7.2.686 [id number] [facility] 2025-01-25 08:45:00 2025-01-25 08:45:00 Outpatient R SANKET [facility] [facility] [id number] [facility] 2025-01-25 08:00:00 2025-01-25 08:00:00 Outpatient R GLORIA HECK [facility] [id number] [facility] 2025-01-20 00:00:00 2025-01-21 02:04:03 Orders Only Doctor Unassigned, [facility] Unassigned, [facility] [place] ([facility]) 1.840.114 350.1.13.10 4.2.7.2.686 [id number] [facility] 2025-01-20 13:00:00 2025-01-20 13:00:00 [address] HARRIS SELE[address] [facility] [id number] [facility] 2025-01-18 00:00:00 2025-01-18 13:44:19 Telephone Jen Bush [facility] 1.2.840.114 350.1.13.10 4.2.7.2.686 [id number] [facility] 2025-01-14 00:00:00 2025-01-14 10:39:10 Telephone Jen Bush [facility] 1.2840.114 350.1.13.10 4.2.7.2.686 [id number] [facility] 2025-01-12 00:00:00 2025-01-13 14:40:19 Telephone Heidi Mccullough [facility] 1.2.840.114 350.1.13.10 4.2.7.2.686 [id number] [facility] 2025-01-12 16:00:00 2025-01-12 16:47:18 Office Visit R JEN BUSH [facility] 1.2.840.114 350.1.13.10 4.2.7.2.686 [id number] [facility] 2025-01-11 16:00:00 2025-01-11 17:06:07 Office Visit R IRISROLANDJACKELINE SIM[facility]S [facility] 1.2.84.114 350.1.13.10 4.2.7.2.686 [id number] [facility] 2025-01-07 16:00:00 2025-01-07 16:00:[address] [facility] [id number] [facility] 2025-01-07 14:30:00 2025-01-07 14:30:00 Outpatient R IRSI, ROLANDJACKELINE IIRS, SABINO [facility] [id number] [facility] 2025-01-06 13:00:00 2025-01-06 13:00:00 Outpatient R MYA COTA [facility]LENA [facility] [id number] [facility] 2025-01-04 11:00:00 2025-01-04 11:00:00 Outpatient R MYA COTA [facility] [id number] [facility] 2025-01-03 00:00:00 2025-01-03 17:03:24 Refill Iris Kotawood [facility] 1.2.840.114 350.1.13.10 4.2.7.2.686 [id number] [facility] 2024-11-29 00:00:00 2025-01-01 18:23:02 Patient Secure Msg SadiaHeidi turner [facility] 1.2.840.114 350.1.13.10 4.2.7.2.686 [id number] [facility] 2024-12-31 20:00:00 2024-12-31 20:00:[address] [facility] [id number] [facility] 2024-12-27 11:45:00 2024-12-27 12:25:13 Office Visit R SADIA HEIDI [facility] 1.2.840.114 350.1.13.10 4.2.7.2.686 [id number] [facility] 2024-12-22 14:30:00 2024-12-22 14:30:00 Outpatient MYA HARRIS [facility]LE[address] [facility] [id number] [facility] 2024-12-21 16:00:00 2024-12-21 16:00:00 Outpatient SABINO GUERRERO OGECHUKWU [facility] [id number] [facility] 2024-12-20 00:00:00 2024-12-20 12:39:07 Case Management Heidi Mccullough [facility] [place] 1.2.840.114 350.1.13.10 4.2.7.2.686 [id number] [facility] 2024-12-15 13:30:00 2024-12-15 13:30:00 Outpatient MYA HARRIS [facility]LE[address] [facility] [id number] [facility] 2024-12-13 08:15:00 2024-12-13 08:15:00 Outpatient R HEIDI MCC[address]OUGH [facility] [id number] [facility] 2024-12-10 00:00:00 2024-12-10 14:56:00 Telephone Shruthi Conte [facility] 1.2.840.114 350.1.13.10 4.2.7.2.686 [id number] [facility] 2024-12-10 12:00:00 2024-12-10 12:00:00 Outpatient R SABINO SIMMONS OGECHUKWU [facility] [id number] [facility] 2024-12-10 00:00:00 2024-12-10 00:00:00 Outpatient R SABINO SIMMONS OGECHUKWU [facility] [id number] [facility] 2024-12-08 15:00:00 2024-12-08 15:00:00 Outpatient R JANI RODRIGUEZ [facility] [id number] [facility] 2024-12-07 10:30:00 2024-12-07 10:30:00 Outpatient R MYA COTA [facility]LENA [facility] [id number] [facility] 2024-12-02 00:00:00 2024-12-03 02:04:34 Orders Only Shruthi Conte [facility] [place] [facility] 1..840.114 350.1.13.10 4.2.7.2.686 [id number] [facility] 2024-12-02 00:00:00 2024-12-03 02:04:27 Orders Only Doctor Unassigned, [facility] Doctor Unassigned, [facility] [place] [facility] 1.2.840.114 350.1.13.10 4.2.7.2.686 [id number] [facility] 2024-12-01 20:00:00 2024-12-01 22:30:00 Customer Training Specialist Visit Lab, [facility], [facility] 1.2.840.114 350.1.13.10 4.2.7.2.686 [id number] [facility] 2024-12-01 20:00:00 2024-12-01 20:00:[address] [facility] [id number] [facility] 2024-11-29 16:30:00 2024-11-29 16:30:00 Outpatient MYA HARRIS [facility]LENA [facility] [id number] [facility] 2024-11-29 00:00:00 2024-11-29 09:12:44 Patient Secure Msg Sadia [facility] 1.2.840.114 350.1.13.10 4.2.7.2.686 [id number] [facility] 2024-11-25 00:00:00 2024-11-26 15:41:46 Telephone Sadia [facility] 1.2.840.114 350.1.13.10 4.2.7.2.686 [id number] [facility] 2024-11-25 00:00:00 2024-11-25 16:17:15 Telephone Cipriano [facility] 1.2.840.114 350.1.13.10 4.2.7.2.686 [id number] [facility] 2024-11-25 14:30:00 2024-11-25 14:30:[address] [facility] [id number] [facility] 2024-11-24 14:00:00 2024-11-24 14:00:00 Outpatient MYA HARRIS SELENA [facility] [id number] [facility] 2024-11-23 16:00:00 2024-11-23 16:00:00 Outpatient R LESLYE COPE COPELESLYE HONG [facility] [id number] [facility] 2024-11-23 16:00:00 2024-11-23 16:00:00 Outpatient R LESLYE COPE CRAIG [facility] [id number] [facility] 2024-11-19 09:53:30 2024-11-19 23:59:00 Hospital Encounter Heidi Mccullough [facility] 1.2.840.114 350.1.13.10 4.2.7.2.686 [id number] [facility] 2024-11-19 09:53:24 2024-11-19 23:59:00 Outpatient R HEIDI MCC[address]OUGH [facility] [id number] [facility] 2024-11-19 09:53:24 2024-11-19 23:59:00 Hospital Encounter R HEIDI MCCULLOUGH [facility] 1.2.840.114 350.1.13.10 4.2.7.2.686 [id number] [facility] 2024-11-17 13:30:00 2024-11-17 13:30:[address] [facility] [id number] [facility] 2024-11-12 00:00:00 2024-11-12 00:00:00 Outpatient R SABINO SIMMONS OGECHUKWU [facility] [id number] [facility] 2024-11-12 00:00:00 2024-11-12 00:00:00 Outpatient R SABINO SIMMONS OGECHUKWU [facility] [id number] [facility] 2024-11-09 11:00:00 2024-11-09 11:25:39 Outpatient R MYA COTA SELENA [facility] [id number] [facility] 2024-11-09 11:00:00 2024-11-09 11:25:39 Office Visit Mya Cota [facility] DION CASTR[facility] 1.2.840.114 350.1.13.10 4.2.7.2.686 [id number] [facility] 2024-11-08 16:00:00 2024-11-08 16:00:00 Outpatient R LESLYE COPE [facility] [id number] [facility] 2024-11-08 16:00:00 2024-11-08 16:00:00 Outpatient LESLYE HUNT [facility] [id number] [facility] 2024-11-04 13:45:00 2024-11-04 14:00:00 Customer Training Specialist Visit [facility] [place] [place] Stra[facility]il [facility] 1..840.114 350.1.13.10 4.2.7.2.686 [id number] [facility] 2024-11-04 13:45:00 2024-11-04 13:45:00 [address]P [address] [facility] [id number] [facility] 2024-11-01 15:00:00 2024-11-01 15:00:00 Outpatient [address]YA WOOD RAAI [facility] [id number] [facility] 2024-10-28 13:30:00 2024-10-28 13:30:[address] [facility] [id number] [facility] 2024-10-25 10:00:00 2024-10-25 11:08:57 Outpatient R HEIDI MCC[address] [facility] [id number] [facility] 2024-10-25 10:00:00 2024-10-25 11:08:57 Office Visit Heidi Mccullough [facility] 1.114 350.1.13.10 4.2.7.2.686 [id number] [facility] 2024-10-20 00:00:00 2024-10-20 14:51:54 Case Management Cheri Woo Angelica R [facility] 1..114 350.1.13.10 4.2.7.2.686 [id number] [facility] 2024-10-20 14:30:00 2024-10-20 14:30:00 Outpatient LESLYE HUNT [facility] [id number] [facility] 2024-10-20 14:30:00 2024-10-20 14:30:00 Outpatient LESLYE HUNT [facility] [id number] [facility] 2024-10-19 16:30:00 2024-10-19 16:45:00 Customer Training Specialist Visit [facility] Sanket Mcpherson [facility] 1.84.114 350.1.13.10 4.2.7.2.686 [id number] [facility] 2024-10-19 15:00:00 2024-10-19 16:05:58 Outpatient SANKET LAGUERRE [facility] [id number] [facility] 2024-10-19 15:00:00 2024-10-19 16:05:58 Office Visit Ирина Langford Brandon P [facility] 1.84.114 350.1.13.10 4.2.7.2.686 [id number] [facility] 2024-10-12 14:00:00 2024-10-12 15:11:35 Outpatient R SABINO SIMMONS OGECHUKWU [facility] [id number] [facility] 2024-10-12 14:00:00 2024-10-12 15:11:35 Office Visit Sabino Simmons [facility] DION [facility]OPK[facility] 1.2.840.114 350.1.13.10 4.2.7.2.686 [id number] [facility] [id number] [facility] 2024-10-11 11:30:00 2024-10-11 11:30:00 Outpatient R SABINO SIMMONS OGECHUKWU [facility] [id number] [facility] 2024-10-08 15:00:00 2024-10-08 15:00:00 Outpatient R JEN B[address] [facility] [id number] [facility] 2024-10-05 10:30:00 2024-10-05 11:14:46 Outpatient R MYA COTA SELENA [facility] [id number] [facility] 2024-09-29 15:00:00 2024-09-29 15:00:00 Outpatient R ROSY ANTUNEZ STRAHIL [facility] [id number] [facility] 2024-09-21 14:30:00 2024-09-21 14:30:00 Outpatient R LAITH ALMAGUER [facility] [id number] [facility] 2024-09-17 13:00:00 2024-09-17 13:00:00 Outpatient R JEN B[address] [facility] [id number] [facility] 2024-09-16 10:00:00 2024-09-16 10:00:00 Outpatient R GWENDOLYN MOYER [facility] [id number] [facility] 2024-01-28 00:00:00 2024-09-11 07:23:10 Orders Only Doctor Unassigned, [facility] Doctor Unassigned, [facility] [place] [facility] 1.2.840.114 350.1.13.10 4.2.7.2.686 [id number] [facility] 2024-06-18 00:00:00 2024-09-11 06:34:30 Orders Only Abisai Eileen R Abisai Eileen R [facility] 1.2.840.114 350.1.13.10 4.2.7.2.686 [id number] [id number] [facility] 2024-08-13 00:00:00 2024-09-11 06:17:21 Orders Only Doctor Unassigned, [facility] Doctor Unassigned, [facility] [place] [facility] 1.2.840.114 350.1.13.10 4.2.7.2.686 [id number] [facility] 2024-09-06 13:00:00 2024-09-06 13:00:00 Outpatient R DIANE PARIKH [facility] [id number] [facility] 2024-08-30 15:40:00 2024-08-30 15:40:00 Outpatient R RAI BARBER [facility] [id number] [facility] 2024-08-23 10:30:00 2024-08-23 10:30:00 Outpatient R FITZ ESPARZA JAMES [facility] [id number] [facility] 2024-07-15 00:00:00 2024-08-21 18:19:21 Patient Secure Msg Doctor Unassigned, [facility] Doctor Unassigned, [facility] 1.2.840.114 350.1.13.10 4.2.7.2.686 [id number] [facility] 2024-08-12 00:00:00 2024-08-12 16:33:49 Telephone Gloria Heck [facility] 1.2.840.114 350.1.13.10 4.2.7.2.686 [id number] [id number] [facility] 2024-08-12 08:14:00 2024-08-12 11:55:00 Outpatient R MATILDA MCGREGOR [facility] [place] [id number] [facility] 2024-08-12 08:14:00 2024-08-12 11:55:00 Hospital Encounter Matilda Mcgregor [facility] 1.2840.114 350.1.13.10 4.2.7.2.686 [id number] 020 [id number] [facility] 2024-08-12 09:45:00 2024-08-12 10:15:00 Surgery Matilda Mcgregor [facility] 1.840.114 350.1.13.10 4.2.7.2.686 [id number] [id number] [facility] 2024-08-11 13:30:00 2024-08-11 14:09:42 Outpatient R CIPRIANO MYAMYA NASH [facility] [id number] [facility] 2024-08-11 13:30:00 2024-08-11 14:09:42 [facility]ri[facility] 1.840.114 350.1.13.10 4.2.7.2.686 [id number] [facility] 2024-08-11 00:00:00 2024-08-11 10:25:49 [facility] 1.2840.114 350.1.13.10 4.2.7.2.686 [id number] 044 [id number] [facility] 2024-08-10 15:21:00 2024-08-10 21:10:00 Emergency X CRISTI PANCHAL ERICCA [facility] ERT [id number] [facility] 2024-08-10 15:21:00 2024-08-10 21:10:00 Emergency Cristi Panchal Isac [facility] AT [facility] 1.2.840.114 350.1.13.10 4.2.7.2.686 [id number] [id number] [facility] 2024-08-10 14:30:00 2024-08-10 16:00:57 Outpatient R [facility] [id number] [facility] 2024-08-10 14:30:00 2024-08-10 16:00:57 [facility] 1.2.840.114 350.1.13.10 4.2.7.2.686 [id number] [id number] [facility] 2024-07-02 00:00:00 2024-08-07 18:19:52 Patient [facility] 1.2.840.114 350.1.13.10 4.2.7.2.686 [id number] [facility] 2024-08-06 00:00:00 2024-08-06 13:48:08 Telephone [facility] 1.2.840.114 350.1.13.10 4.2.7.2.686 [id number] [facility] 2024-08-03 10:45:00 2024-08-03 10:45:00 Outpatient R ROMINA MCDUFFIE LAURA [facility] [id number] [facility] 2024-06-25 00:00:00 2024-07-31 18:19:22 Patient Secure Msg Doctor Unassigned, [facility] Doctor Unassigned, [facility] 1.2.840.114 350.1.13.10 4.2.7.2.686 [id number] [id number] [facility] 2024-07-30 15:20:00 2024-07-30 15:21:48 Outpatient R TOÑITO ALLISON TOÑITOALLISON DODSON [facility] [id number] [facility] 2024-07-30 15:20:00 2024-07-30 15:21:48 Office Visit Allison Malcolm [facility] 1.2.840.114 350.1.13.10 4.2.7.2.686 [id number] [facility] 2024-07-29 15:02:55 2024-07-29 23:59:00 [facility] [id number] [facility] 2024-07-29 15:02:55 2024-07-29 23:59:00 Hospital Encounter Maria R [facility] 1.2.840.114 350.1.13.10 4.2.7.2.686 [id number] [facility] 2024-07-22 13:45:00 2024-07-22 13:45:[address] [facility] [id number] [facility] 2024-07-22 13:45:00 2024-07-22 13:45:[address] [facility] [id number] [facility] 2024-07-15 00:00:00 2024-07-15 09:43:15 Telephone Maria R [facility] 1.2.840.114 350.1.13.10 4.2.7.2.686 [id number] [facility] 2024-07-13 15:12:46 2024-07-13 23:59:00 Outpatient R NAIDA HECKESTER [facility] [id number] [facility] 2024-07-13 15:12:46 2024-07-13 23:59:00 Hospital Encounter Naida Heckammed [facility] PROFESS[facility] NAL [facility] 1..840.114 350.1.13.10 4.2.7.2.686 [id number] [facility] 2024-07-13 16:00:00 2024-07-13 16:00:00 Outpatient Tasha HECK [facility] [id number] [facility] 2024-07-05 16:00:00 2024-07-05 16:00:[address] [facility] [id number] [facility] 2024-06-16 00:00:00 2024-07-05 11:58:46 Refill Sabino Simmons [facility] 1..840.114 350.1.13.10 4.2.7.2.686 [id number] [id number] [facility] 2024-07-05 08:00:00 2024-07-05 08:00:[address] [facility] [id number] [facility] 2024-07-05 08:00:00 2024-07-05 08:00:[address] [facility] [id number] [facility] 2024-07-02 08:00:00 2024-07-02 09:08:10 Outpatient Tasha HECK [facility] [id number] [facility] 2024-05-26 00:00:00 2024-06-26 18:17:34 Patient Secure Msg Doctor Unassigned, [facility] Doctor Unassigned, [facility] IC[facility]ENCES BLDG ..840.114 350.1.13.10 4.2.7.2.686 [id number] [facility] 2024-06-22 08:30:00 2024-06-22 08:30:00 Outpatient R DENY RODRIGUEZ [facility] [id number] [facility] 2024-05-18 00:00:00 2024-06-19 18:24:18 Patient Secure Niecy Mccarthy [facility] [place] [facility]) 1.2.840.114 350.1.13.10 4.2.7.2.686 [id number] [facility] 2024-06-18 15:53:23 2024-06-18 23:59:00 Hospital Encounter Sabino Simmons [facility] 1.2840.114 350.1.13.10 4.2.7.2.686 [id number] [facility] 2024-06-18 16:15:00 2024-06-18 16:15:00 Customer Training Specialist Visit 2, Adc Lab Sabino Simmons 2, Adc Lab [facility] PROFESSIO NAL BUILDING 1.2.840.114 350.1.13.10 4.2.7.2.686 [id number] [facility] 2024-06-18 14:00:00 2024-06-18 15:36:11 Outpatient R SABINO SIMMONS OGECHUKWU [facility] [id number] [facility] 2024-06-18 14:00:00 2024-06-18 15:36:11 Office Visit Sabino Simmons [facility] 1.2.840.114 350.1.13.10 4.2.7.2.686 [id number] [facility] 2024-06-08 15:00:00 2024-06-08 15:00:00 Outpatient R SABINO SIMMONS OGECHUKWU [facility] [id number] [facility] 2024-06-07 15:30:00 2024-06-07 15:30:00 Outpatient R SABINO SIMMONS OGECHUKWU [facility] [id number] [facility] 2024-04-30 00:00:00 2024-06-05 18:25:32 Patient Secure Sabino Schwartz [facility] 1.2.840.114 350.1.13.10 4.2.7.2.686 [id number] [id number] [facility] 2024-06-04 14:20:00 2024-06-04 14:20:[address] [facility] [id number] [facility] 2024-04-28 00:00:00 2024-05-29 18:19:45 Patient Secure g Niecy Kang [facility] 1.2840.114 350.1.13.10 4.2.7.2.686 [id number] [facility] 2024-05-26 00:00:00 2024-05-26 15:45:41 Telephone Niecy Kang [facility] 1.2.840.114 350.1.13.10 4.2.7.2.686 [id number] [facility] 2024-05-24 15:30:00 2024-05-24 15:30:00 Outpatient R [address]A [address] [facility] [id number] [facility] 2024-05-24 15:30:00 2024-05-24 15:30:[address] [facility] [id number] [facility] 2024-04-26 00:00:00 2024-05-19 15:50:04 Telephone Selina Mazariegos [facility] 1.2840.114 350.1.13.10 4.2.7.2.686 [id number] [facility] 2024-05-19 09:30:00 2024-05-19 09:30:00 Outpatient R ROSY ANTUNEZ BEAGILBERT ARZATENMAnkur [facility] [id number] [facility] 2024-05-19 09:30:00 2024-05-19 09:30:00 Outpatient R ROSY ANTUNEZ [facility] [id number] [facility] 2024-05-15 00:00:00 2024-05-17 12:26:07 Sabino Krishna [facility] PROF[facility] 1..840.114 350.1.13.10 4.2.7.2.686 [id number] [facility] 2024-05-06 13:00:00 2024-05-06 13:00:[address] [facility] [id number] [facility] 2024-05-06 13:00:00 2024-05-06 13:00:[address] [facility] [id number] [facility] 2024-05-04 11:00:00 2024-05-04 11:15:00 Customer Training Specialist Visit [facility] Jared Sapp [facility] 1.840.114 350.1.13.10 4.2.7.2.686 [id number] [facility] 2024-05-04 09:30:00 2024-05-04 10:00:00 Office Visit Niecy Kang Joseph Marc [facility] 1..840.114 350.1.13.10 4.2.7.2.686 [id number] [facility] 2024-05-04 09:30:00 2024-05-04 09:30:00 Outpatient R JARED SAPP [facility] [id number] [facility] 2024-05-03 11:30:00 2024-05-03 11:30:00 Outpatient R HEIDI MCC[address]OUGH [facility] [id number] [facility] 2024-04-30 00:00:00 2024-04-30 08:21:15 Telephone Jose Simmonspro [facility] 1.2.840.114 350.1.13.10 4.2.7.2.686 [id number] [id number] [facility] 2024-04-29 00:00:00 2024-04-29 14:42:32 Patient Secure Msg Sabino Simmons [facility] 1.2.840.114 350.1.13.10 4.2.7.2.686 [id number] [id number] [facility] 2024-04-27 14:00:00 2024-04-27 14:00:00 Outpatient R LIANET MCKEON CASSIE [facility] [id number] [facility] 2024-04-26 13:00:00 2024-04-26 13:00:00 Outpatient R DIANE PARIKH [facility] [id number] [facility] 2024-03-23 00:00:00 2024-04-24 18:22:17 Patient Secure Msg Doctor Unassigned, [facility] Doctor Unassigned, [facility] [place] [facility] 1.2.840.114 350.1.13.10 4.2.7.2.686 [id number] [facility] 2024-04-23 09:00:00 2024-04-23 10:26:52 Outpatient R IRIS, EDWINANISHA IRIS ROLANDJACKELINE [facility] [id number] [facility] 2024-04-23 09:00:00 2024-04-23 10:26:52 Office Visit Sabino Simmons [facility] PROFESS[facility] NAL [facility]ILDING 1..840.114 350.1.13.10 4.2.7.2.686 [id number] [id number] [facility] 2024-04-21 04:51:00 2024-04-21 07:43:00 Emergency X GIOVANA LOJAZOEY SURAJALBERTOERIC JEREMYJUAN RAMON [facility] ERT [id number] [facility] 2024-04-21 04:51:00 2024-04-21 07:43:00 Emergency Saurav Loja Jeison [facility] AT [facility] 1.2.840.114 350.1.13.10 4.2.7.2.686 [id number] [facility] 2024-04-20 13:30:00 2024-04-20 13:30:00 Outpatient [address] WOODS CASSIE [facility] [id number] [facility] 2024-04-19 15:00:00 2024-04-19 16:00:00 [facility] [address] [facility] 1..840.114 350.1.13.10 4.2.7.2.686 [id number] [facility] 2024-04-19 15:00:00 2024-04-19 15:00:[address] [facility] [id number] [facility] 2024-04-15 18:48:00 2024-04-16 01:39:00 Emergency X IWONA MCDUFFIE LUKE [facility] ERT [id number] [facility] 2024-04-15 18:48:00 2024-04-16 01:39:00 Emergency Iwona Mcduffie [facility] [place] 1.2.840.114 350.1.13.10 4.2.7.2.686 [id number] [facility] 2024-04-15 11:00:00 2024-04-15 11:00:[address] [facility] [id number] [facility] 2024-04-14 12:00:00 2024-04-14 12:00:00 Outpatient R SABINO SIMMONS OGECHUKWU [facility] [id number] [facility] 2024-04-13 14:19:00 2024-04-13 19:50:00 Emergency X TIMNADIYA ROBLES NADIYA BELLAMY [facility] ERT [id number] [facility] 2024-04-13 14:19:00 2024-04-13 19:50:00 Emergency TimNadiya robles [facility] 1.2.840.114 350.1.13.10 4.2.7.2.686 [id number] [facility] 2024-04-13 00:00:00 2024-04-13 10:19:44 Telephone Sabino Simmons [facility] PROFESS[facility] NAL [facility]ILDING 1.2.840.114 350.1.13.10 4.2.7.2.686 [id number] [facility] 2024-04-06 14:00:00 2024-04-06 14:00:00 Outpatient R [address]A L[address]US [facility] [id number] [facility] 2024-04-02 14:50:38 2024-04-02 23:59:00 Outpatient R SABINO SIMMONS OGECHUKWU [facility] [id number] [facility] 2024-04-02 14:50:38 2024-04-02 23:59:00 Hospital Encounter Sabino Simmons [facility] NAL [facility]ILDING 1.2.840.114 350.1.13.10 4.2.7.2.686 [id number] [facility] 2024-04-02 14:50:30 2024-04-02 23:59:00 Hospital Encounter Sabino Simmons [facility] NAL [facility]ILD[facility] 1.2.114 350.1.13.10 4.2.7.2.686 [id number] [facility] 2024-02-19 00:00:00 2024-03-27 18:26:23 Patient Secure Msg Doctor Unassigned, [facility] Doctor Unassigned, [facility] 1..114 350.1.13.10 4.2.7.2.686 [id number] [id number] [facility] 2024-02-19 00:00:00 2024-03-27 18:25:40 Patient Secure Msg Doctor Unassigned, [facility] Doctor Unassigned, [facility] [place] 1.2840.114 350.1.13.10 4.2.7.2.686 [id number] [facility] 2024-03-24 14:45:00 2024-03-24 14:45:00 Outpatient R LEA BARRETO [facility] [id number] [facility] 2024-03-23 00:00:00 2024-03-23 14:05:24 Telephone Stephanie Thomas [facility] 1.284.114 350.1.13.10 4.2.7.2.686 [id number] [facility] 2024-03-22 09:15:00 2024-03-22 09:58:36 Outpatient R STEPHANIE THOMAS [facility] [id number] [facility] 2024-03-22 09:15:00 2024-03-22 09:58:36 Office Visit Stephanie Thomas [facility] 1.2.114 350.1.13.10 4.2.7.2.686 [id number] [facility] 2024-03-17 15:15:00 2024-03-17 15:15:00 Outpatient R LESLYE COPELESLYE [facility] [id number] [facility] 2024-03-15 08:15:00 2024-03-15 08:15:[address] [facility] [id number] [facility] 2024-03-08 13:00:00 2024-03-08 13:00:00 Outpatient R SABINO SIMMONS OGECHUKWU [facility] [id number] [facility] 2024-02-26 00:00:00 2024-03-08 08:12:02 Nurse Triage Tala Elise Teresa D [facility] [place] 1..840.114 350.1.13.10 4.2.7.2.686 [id number] [facility] 2024-02-03 00:00:00 2024-03-06 18:20:22 Patient Secure Msg Doctor Unassigned, [facility] Doctor Unassigned, [facility] 1.2.840.114 350.1.13.10 4.2.7.2.686 [id number] [id number] [facility] 2024-03-03 15:15:00 2024-03-03 15:15:00 Outpatient R LESLYE COPE LESLYE [facility] [id number] [facility] 2024-02-18 00:00:00 2024-02-20 17:05:35 Telephone Sabino Simmons [facility] 1.2.840.114 350.1.13.10 4.2.7.2.686 [id number] 044 [id number] [facility] 2024-02-19 00:00:00 2024-02-19 13:43:37 Telephone Sabino Simmons [facility] 1.2.840.114 350.1.13.10 4.2.7.2.686 [id number] [facility] 2024-02-18 13:00:00 2024-02-18 14:25:29 Outpatient R SABINO SIMMONS OGECHUKWU [facility] [id number] [facility] 2024-02-18 13:00:00 2024-02-18 14:25:29 Office Visit Sabino Simmons [facility] 1.2.840.114 350.1.13.10 4.2.7.2.686 [id number] [facility] 2024-02-03 11:30:00 2024-02-03 11:30:00 Outpatient R SABINO SIMMONS OGECHUKWU [facility] [id number] [facility] 2024-01-28 00:00:00 2024-01-31 16:00:32 Telephone Sabino Simmons [facility] 1.2.840.114 350.1.13.10 4.2.7.2.686 [id number] [facility] 2024-01-27 16:16:00 2024-01-27 21:50:00 Emergency X KINSEY MALCOLM WHITNEY [facility] [id number] [facility] 2024-01-27 16:16:00 2024-01-27 21:50:00 Emergency Kinsey Malcolm [facility] 1.2.840.114 350.1.13.10 4.2.7.2.686 [id number] [facility] 2024-01-26 00:00:00 2024-01-26 09:24:31 Telephone Sabino Simmons [facility] 1.2.840.114 350.1.13.10 4.2.7.2.686 [id number] [facility] 2024-01-09 13:30:00 2024-01-09 13:30:00 Outpatient R SABINO SIMMONS [facility] [id number] [facility] 2024-01-08 00:00:00 2024-01-08 16:07:59 Case Management Nissa Velasco [facility] 1.2.840.114 350.1.13.10 4.2.7.2.686 [id number] [facility] 2024-01-08 15:15:00 2024-01-08 15:15:[address] [facility] [id number] [facility] 2023-12-30 13:45:00 2023-12-30 13:45:00 Outpatient R LESLYE COPE [facility] [id number] [facility] 2023-12-24 14:30:00 2023-12-24 14:30:00 Outpatient R SABINO SIMMONS [facility] [id number] [facility] 2023-12-16 14:30:00 2023-12-16 15:42:50 Outpatient R LESLYE COPE [facility] [id number] [facility] 2023-12-16 14:30:00 2023-12-16 15:42:50 Ancillary Visit Gabrielle Medellin Craig L [facility] 1.2.840.114 350.1.13.10 4.2.7.2.686 [id number] [facility] 2023-12-01 00:00:00 2023-12-01 13:51:45 Patient Outreach Romina Baker [facility] 1.2.840.114 350.1.13.10 4.2.7.2.686 [id number] [facility] 2023-11-28 00:00:00 2023-11-28 00:00:[address] [facility] 1.2.840.114 350.1.13.10 4.2.7.2.686 [id number] [facility] 2023-11-26 14:15:00 2023-11-26 14:30:00 Customer Training Specialist Visit 2, [facility] Sabino Simmons [facility] 1.2.840.114 350.1.13.10 4.2.7.2.686 [id number] [facility] 2023-11-26 13:00:00 2023-11-26 14:10:33 Outpatient R SABINO SIMMONS [facility] [id number] [facility] 2023-11-26 13:00:00 2023-11-26 14:10:33 Office Visit Sabino Simmons [facility] 1.2.840.114 350.1.13.10 4.2.7.2.686 [id number] [facility] 2023-11-25 13:45:00 2023-11-25 13:45:[address] [facility] [id number] [facility] 2023-11-21 13:00:00 2023-11-21 13:00:00 Outpatient R SABINO SIMMONS [facility] [id number] [facility] 2023-11-17 14:00:00 2023-11-17 14:00:00 Outpatient R SABINO SIMMONS SABINO [facility] [id number] [facility] 2023-11-14 14:00:00 2023-11-14 14:00:00 Outpatient R IRIS, ROLANDIvaniaWood SIMMONS SABINO [facility] [id number] [facility] 2023-11-07 13:30:00 2023-11-07 13:30:00 [facility] [id number] [facility] 2023-11-03 13:00:00 2023-11-03 13:00:[address] [facility] [id number] [facility] 2023-11-03 09:00:00 2023-11-03 09:00:[address] [facility] [id number] [facility] 2023-10-20 00:00:00 2023-10-20 00:00:00 Patient Secure Msg Doctor Unassigned, [facility] 1.2.840.114 350.1.13.10 4.2.7.2.686 [id number] [facility] 2023-10-17 13:03:23 2023-10-17 23:59:[address] [facility] [id number] [facility] 2023-10-10 15:45:00 2023-10-10 16:00:00 Customer Training Specialist Visit Pcp-Lab Dania Betancur [facility] 1.2.840.114 350.1.13.10 4.2.7.2.686 [id number] [facility] 2023-10-10 14:50:00 2023-10-10 15:47:[address] [facility] [id number] [facility] 2023-10-10 14:50:00 2023-10-10 15:47:49 Office Visit Mayela Nabila Gypsy Dania Spear [facility] 1.2.840.114 350.1.13.10 4.2.7.2.686 [id number] [facility] 2023-10-03 15:08:00 2023-10-03 18:40:00 Emergency X KINSEY PARKER [facility] ERT [id number] [facility] 2023-10-03 15:08:00 2023-10-03 18:40:00 Emergency Alice Pena Whitney [facility] 1.2.840.114 350.1.13.10 4.2.7.2.686 [id number] [facility] 2023-09-29 00:00:00 2023-09-29 00:00:00 Telephone Sanket Mcpherson [employer] 1.2.840.114 350.1.13.10 4.2.7.2.686 [id number] [facility] 2023-07-03 11:00:00 2023-07-03 11:00:[address] [facility] [id number] [facility] 2023-05-23 09:15:00 2023-05-23 09:15:00 Outpatient R HEIDI MCC[facility]OUGH [facility] [id number] [facility] 2023-05-21 16:15:00 2023-05-21 16:15:00 Outpatient R HEIDI [facility] [facility] [id number] [facility] 2023-05-06 18:19:00 2023-05-06 22:17:00 Emergency X ALICE PENA [facility] E[facility] [id number] [facility] 2023-05-06 18:19:00 2023-05-06 22:17:00 Emergency Alice Pena [facility] 1.2.840.114 350.1.13.10 4.2.7.2.686 [id number] [facility] 2023-05-01 00:00:00 2023-05-01 00:00:00 Transition of Care Lolita Willett 1.2.840.114 350.1.13.10 4.2.7.2.686 [id number] [facility] 2023-04-21 16:49:00 2023-04-30 16:15:00 [facility] [id number] [facility] 2023-04-21 16:49:00 2023-04-30 16:15:00 Hospital Encounter Rai Salomon Sara Michelle [facility] 1.2840.114 350.1.13.10 4.2.7.2.686 [id number] [facility] 2023-04-30 00:00:00 2023-04-30 00:00:00 Telephone [facility] 1.2840.114 350.1.13.10 4.2.7.2.686 [id number] [facility] 2023-04-29 06:50:00 2023-04-29 09:02:00 Surgery [facility] 1.2840.114 350.1.13.10 4.2.7.2.686 [id number] [facility] 2023-04-25 13:26:00 2023-04-25 14:05:00 Surgery Marcos Rodriguez [facility] 1.2840.114 350.1.13.10 4.2.7.2.686 [id number] [facility] 2023-04-24 15:30:00 2023-04-24 15:30:[address] [facility] [id number] [facility] 2023-04-16 10:30:00 2023-04-16 10:30:[address] [facility] [id number] [facility] 2023-04-09 00:00:00 2023-04-09 00:00:00 Patient Secure Msg Doctor Unassigned, [facility] 1..840.114 350.1.13.10 4.2.7.2.686 [id number] [facility] 2023-04-08 16:34:00 2023-04-08 19:33:00 Emergency X SADIQALBERTOANITABRITTANYKATE Dia [facility] ERT [id number] [facility] 2023-04-08 16:34:00 2023-04-08 19:33:00 [facility] 1..840.114 350.1.13.10 4.2.7.2.686 [id number] [facility] 2023-04-07 15:00:00 2023-04-07 15:00:00 Outpatient [address]IHA AGUIAR [facility] [id number] [facility] 2023-03-20 00:00:00 2023-03-20 00:00:00 Patient Secure Msg Doctor Unassigned, [facility] 1..840.114 350.1.13.10 4.2.7.2.686 [id number] [facility] 2023-03-14 16:57:00 2023-03-14 17:50:00 Emergency X KASSY GUTIERREZ [facility] E[facility] [id number] [facility] 2023-03-14 16:57:00 2023-03-14 17:50:00 Emergency Kassy Gutierrez [facility] 1.2.840.114 350.1.13.10 4.2.7.2.686 [id number] [facility] 2023-03-13 11:00:00 2023-03-13 11:30:00 [facility] 1.2.840.114 350.1.13.10 4.2.7.2.686 [id number] [facility] 2023-03-13 11:00:00 2023-03-13 11:00:00 Outpatient R DANNY BOAZ [facility] [id number] [facility] 2023-03-13 00:00:00 2023-03-13 00:00:00 Telephone Slim [facility] 1.2.840.114 350.1.13.10 4.2.7.2.686 [id number] [facility] 2023-03-13 00:00:00 2023-03-13 00:00:00 Orders Only Doctor Unassigned, [facility] 1.2.840.114 350.1.13.10 4.2.7.2.686 [id number] [facility] 2023-03-11 17:46:00 2023-03-11 20:59:00 Emergency X ZEYNEP MITCHELL [facility] ERT [id number] [facility] 2023-03-11 17:46:00 2023-03-11 20:59:00 Emergency Zeynep Mitchell [facility] 1.2.840.114 350.1.13.10 4.2.7.2.686 [id number] [facility] 2023-02-25 14:43:00 2023-02-26 19:25:00 Outpatient X JUSTEN PATTON [facility] [place] [id number] [facility] 2023-02-25 14:43:00 2023-02-26 19:25:00 Emergency Bairon Meyers David [facility] 1.2840.114 350.1.13.10 4.2.7.2.686 [id number] [facility] 2023-02-02 19:28:00 2023-02-02 23:34:00 Emergency X SAURAV LOJA [facility] ERT [id number] [facility] 2023-02-02 19:28:00 2023-02-02 23:34:00 Emergency Saurav Loja [facility] 1.2840.114 350.1.13.10 4.2.7.2.686 [id number] [facility] 2022-08-27 11:00:00 2022-08-27 11:00:[address] [facility] [id number] [facility] 2022-06-18 13:00:00 2022-06-18 13:00:[address] [facility] [id number] [facility] 2022-05-21 13:38:00 2022-05-21 14:10:00 Emergency KASSY GARCIA [facility] ERT [id number] [facility] 2022-05-21 13:38:00 2022-05-21 14:10:00 Emergency Kassy Gutierrez [facility] 1.2840.114 350.1.13.10 4.2.7.2.686 [id number] [facility] 2022-04-24 00:00:00 2022-04-24 00:00:00 Patient Secure Rasta Madrigal [facility] 1.2.840.114 350.1.13.10 4.2.7.2.686 [id number] [facility] 2022-04-23 15:30:00 2022-04-23 16:00:00 Office Visit Rasta Anne Alexander [facility] 1..840.114 350.1.13.10 4.2.7.2.686 [id number] [facility] 2022-04-23 15:30:00 2022-04-23 15:30:[address] [facility] [id number] [facility] 2022-04-01 00:00:00 2022-04-01 00:00:00 Telephone Sanket Mcpherson [facility] 1.840.114 350.1.13.10 4.2.7.2.686 [id number] [facility] 2022-03-13 16:15:00 2022-03-13 16:30:00 Laboratory Only Only, Ang Db [facility] [place] 1..840.114 350.1.13.10 4.2.7.2.686 [id number] [facility] 2022-03-13 16:15:00 2022-03-13 16:15:00 Outpatient Tasha ADAMSON [facility] [id number] [facility] 2022-03-13 00:00:00 2022-03-13 00:00:00 Orders Only Doctor Unassigned, [facility] 1.840.114 350.1.13.10 4.2.7.2.686 [id number] [facility] 2022-03-04 10:15:00 2022-03-04 10:15:[address] [facility] [id number] [facility] 2022-01-08 10:30:00 2022-01-08 10:30:[address] [facility] [id number] [facility] 2021-12-05 19:26:00 2021-12-05 20:13:00 Emergency X SAYDA ZAFAR [facility] ERT [id number] [facility] 2021-12-05 19:26:00 2021-12-05 20:13:00 Emergency Sayda Zafar R [facility] 1.2840.114 350.1.13.10 4.2.7.2.686 [id number] [facility] 2021-12-05 19:26:00 2021-12-05 20:13:00 Emergency X SAYDA ZAFAR [facility] ERT [id number] [facility] 2021-09-25 15:10:00 2021-09-25 15:10:00 Outpatient R UNKNOWN, ATTENDING [facility] [id number] [facility] 2021-09-25 15:10:00 2021-09-25 15:10:00 Outpatient R UNKNOWN, ATTENDING [facility] [id number] [facility] 2021-08-22 00:00:00 2021-08-22 00:00:00 Patient Secure Msg Clarice Chauhan [facility] 1.0.114 350.1.13.10 4.2.7.2.686 [id number] [facility] 2021-08-22 00:00:00 2021-08-22 00:00:00 Patient Secure Msg Doctor Unassigned, [facility] 1.0.114 350.1.13.10 4.2.7.2.686 [id number] [facility] 2021-08-21 15:13:16 2021-08-21 23:59:00 Outpatient R BRANDON RIVERA [facility] [id number] [facility] 2021-08-21 15:13:16 2021-08-21 23:59:00 Hospital Encounter Brandon Rivera [facility] 1.0.114 350.1.13.10 4.2.7.2.686 [id number] [facility] 2021-08-21 15:13:16 2021-08-21 23:59:[address] [facility] [id number] [facility] 2021-08-21 15:30:00 2021-08-21 15:45:00 Customer Training Specialist Visit Pcp-Lab Brandon Rivera [facility] 1..840.114 350.1.13.10 4.2.7.2.686 [id number] [facility] 2021-08-21 14:20:00 2021-08-21 15:05:01 Outpatient Tasha VAZQUEZ, ELENA [facility] [id number] [facility] 2021-08-21 14:20:00 2021-08-21 15:05:01 Office Visit Clarice Chauhan, Attending Brandon Rivera [facility] 1..840.114 350.1.13.10 4.2.7.2.686 [id number] [facility] 2021-08-21 14:20:00 2021-08-21 15:05:[address] [facility] [id number] [facility] 2021-08-15 00:00:00 2021-08-15 00:00:00 Sherry Conner [employer] .840.114 350.1.13.10 4.2.7.2.686 [id number] [facility] 2021-08-06 00:00:00 2021-08-06 00:00:00 [facility].114 350.1.13.10 4.2.7.2.686 [id number] [facility] 2021-07-30 10:30:00 2021-07-30 10:30:[address] [facility] [id number] [facility] 2021-07-26 00:00:00 2021-07-26 00:00:00 Clarice Sotelo [facility] 1.2.840.114 350.1.13.10 4.2.7.2.686 [id number] [facility] 2021-07-25 10:40:00 2021-07-25 10:40:[address] [facility] [id number] [facility] 2021-06-26 16:00:00 2021-06-26 16:00:[address] [facility] [id number] [facility] 2021-06-26 16:00:00 2021-06-26 16:00:[address] [facility] [id number] [facility] 2021-06-26 14:20:00 2021-06-26 14:20:[address] [facility] [id number] [facility] 2021-06-19 10:00:00 2021-06-19 10:00:[address] [facility] [id number] [facility] 2021-06-19 10:00:00 2021-06-19 10:00:[address] [facility] [id number] [facility] 2021-06-12 14:15:00 2021-06-12 14:15:[address] [facility] [id number] [facility] 2021-06-11 11:00:00 2021-06-11 11:00:[address] [facility] [id number] [facility] 2021-06-11 00:00:00 2021-06-11 00:00:[address] [facility] [id number] [facility] 2021-06-11 00:00:00 2021-06-11 00:00:[address] [facility] [id number] [facility] 2021-06-11 00:00:00 2021-06-11 00:00:00 Outpatient Tasha RIVERA BR[address]ON [facility] [id number] [facility] 2021-06-08 09:30:00 2021-06-08 14:17:[address] [facility] [id number] [facility] 2021-06-08 09:41:59 2021-06-08 09:56:59 Nurse Visit Visit, [facility] Dermatology Nurse Carolyn Ellis [employer] 1..840.114 350.1.13.10 4.2.7.2.686 [id number] [facility] 2021-06-08 09:30:00 2021-06-08 09:30:[address] [facility] [id number] [facility] 2021-06-08 09:30:00 2021-06-08 09:30:[address] [facility] [id number] [facility] 2021-06-08 00:00:00 2021-06-08 00:00:00 Telephone Sanket Mcpherson [employer] 1..840.114 350.1.13.10 4.2.7.2.686 [id number] [facility] 2021-06-06 10:44:36 2021-06-06 11:41:03 Office Visit Clarice Chauhan [place] [facility] 1..840.114 350.1.13.10 4.2.7.2.686 [id number] [facility] 2021-06-06 10:40:00 2021-06-06 11:41:[address] [facility] [id number] [facility] 2021-06-06 00:00:00 2021-06-06 00:00:00 Orders Only Doctor Unassigned, [facility] 1.2.840.114 350.1.13.10 4.2.7.2.686 [id number] [facility] 2021-05-31 00:00:00 2021-05-31 00:00:00 Patient Secure Msg Doctor Unassigned, [facility] 1.2.840.114 350.1.13.10 4.2.7.2.686 [id number] [facility] 2021-05-28 00:00:00 2021-05-28 00:00:00 Patient Secure Msg CorrinachristinaClarice abad [facility] 1.2.840.114 350.1.13.10 4.2.7.2.686 [id number] [facility] 2021-05-25 14:56:53 2021-05-25 23:59:00 Hospital Encounter Radiology [facility] 1.2.840.114 350.1.13.10 4.2.7.2.686 [id number] [facility] 2021-05-25 14:51:00 2021-05-25 15:06:00 Customer Training Specialist Visit Pcp-Brandon Gonzáles [facility] 1.2.840.114 350.1.13.10 4.2.7.2.686 [id number] [facility] 2021-05-25 14:56:53 2021-05-25 14:56:[address] [facility] [id number] [facility] 2021-05-25 14:10:00 2021-05-25 14:51:51 Outpatient R UNKNOWN, ATTENDING [facility] [id number] [facility] 2021-05-25 14:10:00 2021-05-25 14:51:51 Outpatient R BRANDON RIVERA [facility] [id number] [facility] 2021-05-25 13:34:56 2021-05-25 14:51:51 Office Visit Clarice Chauhan Unknown, Attending [facility] 1.2.114 350.1.13.10 4.2.7.2.686 [id number] [facility] 2021-05-25 13:34:56 2021-05-25 14:51:51 Office Visit Clarice Chauhan Unknown, Attending [facility] 1.2.114 350.1.13.10 4.2.7.2.686 [id number] [facility] 2021-05-25 09:00:00 2021-05-25 11:35:22 Outpatient R SANKET [facility] [facility] [id number] [facility] 2021-05-25 09:00:00 2021-05-25 11:35:22 Outpatient R SANKET [facility] [facility] [id number] [facility] 2021-05-25 09:00:00 2021-05-25 11:35:22 Office Visit Sanket Mcpherson [facility] 1..114 350.1.13.10 4.2.7.2.686 [id number] [facility] 2021-05-25 08:38:11 2021-05-25 11:35:22 Office Visit Sanket Mcpherson [facility] 1.2.114 350.1.13.10 4.2.7.2.686 [id number] [facility] 2021-05-25 08:38:11 2021-05-25 11:35:22 Office Visit Sanket Mcpherson [facility] 1.2.114 350.1.13.10 4.2.7.2.686 [id number] [facility] 2021-05-25 09:00:00 2021-05-25 09:00:00 Outpatient R SANKET [facility] [id number] [facility] 2021-05-23 10:40:00 2021-05-23 10:40:00 Outpatient R UNKNOWN, ATTENDING [facility] [id number] [facility] 2021-05-23 10:40:00 2021-05-23 10:40:00 Outpatient R UNKNOWN, ATTENDING [facility] [id number] [facility] 2021-05-19 17:42:00 2021-05-19 20:16:00 Emergency Sherry Curry S [facility] 1..840.114 350.1.13.10 4.2.7.2.686 [id number] [facility] 2021-05-19 17:42:00 2021-05-19 20:16:00 Emergency X SHERRY CURRY [facility] ERT [id number] [facility] 2021-05-18 13:10:00 2021-05-18 13:10:00 Outpatient R UNKNOWN, ATTENDING [facility] [id number] [facility] 2021-05-16 13:45:00 2021-05-16 13:45:00 Outpatient R SIENNA RUFF [facility] [id number] [facility] 2021-04-23 14:52:31 2021-04-23 15:49:11 Routine Visit Selina Mazariegos [employer] 1.840.114 350.1.13.10 4.2.7.2.686 [id number] [facility] 2021-04-23 11:19:34 2021-04-23 15:47:11 Office Visit Sanket Mcpherson [employer] 1.840.114 350.1.13.10 4.2.7.2.686 [id number] [facility] 2021-04-23 11:45:00 2021-04-23 11:45:00 Outpatient R S[facility] [id number] [facility] 2021-04-06 14:35:35 2021-04-06 15:03:54 Nurse Visit Visit/Fp, [facility] Nurse [facility] 1..114 350.1.13.10 4.2.7.2.686 [id number] [facility] 2021-04-06 14:30:00 2021-04-06 15:03:54 [facility] [id number] [facility] 2021-04-06 14:30:00 2021-04-06 14:30:[address] [facility] [id number] [facility] 2021-03-27 15:30:00 2021-03-30 14:00:00 Inpatient P GHASSAN [facility] [id number] [facility] 2021-03-27 15:30:00 2021-03-30 14:00:00 Hospital Encounter Abram Ferrell [facility] 1..114 350.1.13.10 4.2.7.2.686 [id number] [facility] 2021-03-27 19:00:00 2021-03-27 21:05:00 Surgery Herminio Isaac [facility] 1..114 350.1.13.10 4.2.7.2.686 [id number] [facility] 2021-03-27 15:30:00 2021-03-27 15:30:00 [id number] 2021-03-27 14:09:50 2021-03-27 15:22:03 [facility]114 350.1.13.10 4.2.7.2.686 [id number] [facility] 2021-03-27 14:15:00 2021-03-27 14:15:00 Outpatient R SELINA MAZARIE[address]OS [facility] [id number] [facility] 2021-03-27 00:00:00 2021-03-27 00:00:00 Orders Only Doctor Unassigned, [facility] 1.840.114 350.1.13.10 4.2.7.2.686 [id number] [facility] 2021-03-21 14:30:00 2021-03-21 14:30:00 Outpatient R [facility]ILAH [facility] [id number] [facility] 2021-03-16 00:00:00 2021-03-16 00:00:[address] [facility] .840.114 350.1.13.10 4.2.7.2.686 [id number] [facility] 2021-03-15 00:00:00 2021-03-15 00:00:00 Cristina Wallace [employer] 1.840.114 350.1.13.10 4.2.7.2.686 [id number] [facility] 2021-03-12 15:12:14 2021-03-12 16:00:[address] [facility] 1.840.114 350.1.13.10 4.2.7.2.686 [id number] [facility] 2021-03-12 15:45:00 2021-03-12 15:45:00 Outpatient Tasha MAZARIEGOS SELINA [facility] [id number] [facility] 2021-03-03 00:00:00 2021-03-03 00:00:00 Patient Secure Msg Doctor Unassigned, [facility] [employer] 1.2840.114 350.1.13.10 4.2.7.2.686 [id number] [facility] 2021-03-01 00:00:00 2021-03-01 00:00:00 Telephone Fidel [facility] 1.2.840.114 350.1.13.10 4.2.7.2.686 [id number] [facility] 2021-02-28 00:00:00 2021-02-28 00:00:00 Nurse Triage Kala Roy [facility] 1.840.114 350.1.13.10 4.2.7.2.686 [id number] [facility] 2021-02-27 00:00:00 2021-02-27 00:00:00 Duc [facility] 1.2.840.114 350.1.13.10 4.2.7.2.686 [id number] [facility] 2021-02-27 00:00:00 2021-02-27 00:00:00 Duc [facility] 1.2840.114 350.1.13.10 4.2.7.2.686 [id number] [facility] 2021-02-26 15:30:00 2021-02-26 15:49:52 Outpatient R SELINA MAZARIEGOS [facility] [id number] [facility] 2021-02-26 15:22:26 2021-02-26 15:49:52 [facility] 1.2.840.114 350.1.13.10 4.2.7.2.686 [id number] [facility] 2021-02-26 15:30:00 2021-02-26 15:30:00 Outpatient R DELILAH [facility] [id number] [facility] 2021-02-26 15:30:00 2021-02-26 15:30:00 Outpatient R SELINA [facility]ZAR[facility] [facility] [id number] [facility] 2021-02-20 14:00:00 2021-02-20 14:00:00 Outpatient R MARLYN P[facility] [facility] [id number] [facility] 2021-02-20 14:00:00 2021-02-20 14:00:00 [facility] [id number] 2021-02-20 00:00:00 2021-02-20 00:00:00 Telephone Josehien Cristina [employer] 1..840.114 350.1.13.10 4.2.7.2.686 [id number] [facility] 2021-02-15 14:00:00 2021-02-15 14:00:[address] [facility] [id number] [facility] 2021-02-15 13:29:53 2021-02-15 13:44:53 Office Visit Dash [facility] 1..840.114 350.1.13.10 4.2.7.2.686 [id number] [facility] 2021-02-14 13:51:00 2021-02-14 21:15:00 Hospital Encounter Ondina Weaver [facility] 1..840.114 350.1.13.10 4.2.7.2.686 [id number] [facility] 2021-02-14 13:51:00 2021-02-14 21:15:00 Outpatient ONDINA WALLER [facility] [id number] [facility] 2021-02-14 13:51:00 2021-02-14 21:15:00 Outpatient P ONDINA WEAVER [facility] [id number] [facility] 2021-02-14 00:00:00 2021-02-14 00:00:00 Orders Only Doctor Unassigned, [facility] 1.2840.114 350.1.13.10 4.2.7.2.686 [id number] [facility] 2021-02-07 00:00:00 2021-02-07 00:00:00 Refill Cristina Parra [facility] RN L AND D [facility] 1.840.114 350.1.13.10 4.2.7.2.686 [id number] [facility] 2021-02-06 07:45:43 2021-02-06 08:00:43 Customer Training Specialist Visit Lab, [facility] Payam Villegas [facility] RN L AND D [facility] MATERNAL & CHILD HEALTH [facility] 1.840.114 350.1.13.10 4.2.7.2.686 [id number] [facility] 2021-02-06 08:00:00 2021-02-06 08:00:[address] [facility] [id number] [facility] 2021-02-06 08:00:00 2021-02-06 07:58:[address] [facility] [id number] [facility] 2021-02-05 13:00:54 2021-02-05 15:47:28 Routine Visit Cristina Parra [employer] 1.840.114 350.1.13.10 4.2.7.2.686 [id number] [facility] 2021-02-05 13:00:00 2021-02-05 13:00:[address] [facility] [id number] [facility] 2021-02-02 00:00:00 2021-02-02 00:00:00 [facility] 1.[facility].114 350.1.13.10 4.2.7.2.686 [id number] [facility] 2021-01-31 11:00:00 2021-01-31 11:00:00 [facility]patient [facility] [id number] [facility] 2021-01-25 00:00:00 2021-01-25 00:00:00 Case Management Fidel [facility] RN L AND D [facility] MATERNAL & CHILD HEALTH [facility] 1..840.114 350.1.13.10 4.2.7.2.686 [id number] [facility] 2021-01-24 08:26:00 2021-01-24 08:33:08 Customer Training Specialist Visit Lab, [facility] Payam Villegas [facility] RN L AND D [facility] MATERNAL & CHILD HEALTH [facility] 1..840.114 350.1.13.10 4.2.7.2.686 [id number] [facility] 2021-01-24 08:30:00 2021-01-24 08:30:[address] [facility] [id number] [facility] 2021-01-19 14:00:00 2021-01-19 14:00:00 Outpatient R [facility] [id number] [facility] 2021-01-17 15:24:33 2021-01-17 16:07:47 Routine Visit Fidel [facility] 1.840.114 350.1.13.10 4.2.7.2.686 [id number] [facility] 2021-01-17 15:00:00 2021-01-17 15:00:00 Outpatient R FIDEL [facility] [id number] [facility] 2021-01-17 00:00:00 2021-01-17 00:00:00 Orders Only Doctor Unassigned, [facility] 1..114 350.1.13.10 4.2.7.2.686 [id number] [facility] 2020-12-29 14:22:20 2020-12-29 14:54:37 Routine Visit Franny Bustillo [facility] 1..114 350.1.13.10 4.2.7.2.686 [id number] [facility] 2020-12-29 13:45:00 2020-12-29 13:45:[address] [facility] [id number] [facility] 2020-12-11 14:34:29 2020-12-11 15:29:17 Customer Training Specialist Visit Ultrasound, Herminio Suarez [facility] RN L [facility] D [facility] 1..114 350.1.13.10 4.2.7.2.686 [id number] [facility] 2020-12-11 14:45:00 2020-12-11 14:45:[address] [facility] [id number] [facility] 2020-12-04 00:00:00 2020-12-04 00:00:00 Telephone Fidel [facility] 1..114 350.1.13.10 4.2.7.2.686 [id number] [facility] 2020-12-03 00:00:00 2020-12-03 00:00:00 Refill Fidel [facility] 1.0.114 350.1.13.10 4.2.7.2.686 [id number] [facility] 2020-12-01 15:38:20 2020-12-01 16:07:09 Routine Visit Cristina Parra [facility] 1.2.840.114 350.1.13.10 4.2.7.2.686 [id number] [facility] 2020-12-01 15:45:00 2020-12-01 15:45:00 Outpatient R SELINA MAZARIEGOS [facility] [id number] [facility] 2020-11-14 00:00:00 2020-11-14 00:00:00 Telephone Darline Cheng [facility] [place] 1.840.114 350.1.13.10 4.2.7.2.686 [id number] [facility] 2020-11-13 10:07:51 2020-11-13 11:22:51 Customer Training Specialist Visit 1, [facility] Us Room Conrado Mcneil [facility] 1.2840.114 350.1.13.10 4.2.7.2.686 [id number] [facility] 2020-11-13 10:00:00 2020-11-13 10:00:[address] [facility] [id number] [facility] 2020-11-08 00:00:00 2020-11-08 00:00:00 Patient Secure Msg Sanket Mcpherson P [facility] 1.840.114 350.1.13.10 4.2.7.2.686 [id number] [facility] 2020-11-07 18:56:00 2020-11-07 21:35:00 Emergency Saurav Loja [facility] 1.2.840.114 350.1.13.10 4.2.7.2.686 [id number] [facility] 2020-11-03 16:15:21 2020-11-03 16:30:21 Customer Training Specialist [facility] ..114 350.1.13.10 4.2.7.2.686 [id number] [facility] 2020-11-03 15:38:43 2020-11-03 16:07:59 Routine Visit Fidel [facility] 1..114 350.1.13.10 4.2.7.2.686 [id number] [facility] 2020-11-03 15:45:00 2020-11-03 15:45:[address] [facility] [id number] [facility] 2020-10-30 08:15:00 2020-10-30 08:15:[address] [facility] [id number] [facility] 2020-10-18 15:48:54 2020-10-18 16:03:54 Telemedici ne Visit Darline Cheng Joseph W [facility] RN L AND D [facility] 1..114 350.1.13.10 4.2.7.2.686 [id number] [facility] 2020-10-18 09:00:00 2020-10-18 09:00:[address] [facility] [id number] [facility] 2020-10-18 00:00:00 2020-10-18 00:00:00 Orders Only Doctor Unassigned, [facility] ..114 350.1.13.10 4.2.7.2.686 [id number] [facility] 2020-10-17 10:36:54 2020-10-17 11:50:40 Office Visit Sanket Mcpherson [employer] 1..114 350.1.13.10 4.2.7.2.686 [id number] [facility] 2020-10-17 10:00:00 2020-10-17 10:00:00 Outpatient R MCPHERSON SANKET [facility] [id number] [facility] 2020-10-12 00:00:00 2020-10-12 00:00:00 Patient Outreach Maximus Villavicencio [facility] 1..114 350.1.13.10 4.2.7.2.686 [id number] [facility] 2020-10-02 10:34:30 2020-10-02 11:14:04 Routine Visit Cristina Parra [employer] 1.114 350.1.13.10 4.2.7.2.686 [id number] [facility] 2020-10-02 10:15:00 2020-10-02 10:15:00 Outpatient R FIDEL CRI[address] [facility] [id number] [facility] 2020-09-22 13:00:00 2020-09-22 13:00:[address] [facility] [id number] [facility] 2020-09-22 07:55:13 2020-09-22 08:25:13 Telemedici ne Visit Fellow, [facility] Abram Ferrell [employer] ..114 350.1.13.10 4.2.7.2.686 [id number] [facility] 2020-09-21 00:00:00 2020-09-21 00:00:00 Telephone Fellow, [facility] 1..114 350.1.13.10 4.2.7.2.686 [id number] [facility] 2020-09-20 00:00:00 2020-09-20 00:00:00 Abstract Fidel [facility] 1..114 350.1.13.10 4.2.7.2.686 [id number] [facility] 2020-09-18 00:00:00 2020-09-18 00:00:00 Abstract Fidel [facility] 1..114 350.1.13.10 4.2.7.2.686 [id number] [facility] 2020-09-15 15:17:42 2020-09-15 15:47:42 Customer Training Specialist Visit Ultrasound, Leslie Mattson [facility] RN L AND D [facility] 1.84.114 350.1.13.10 4.2.7.2.686 [id number] [facility] 2020-09-15 15:30:00 2020-09-15 15:30:00 Outpatient P LESLIE SAAVEDRA SANGEETA [facility] [id number] [facility] 2020-09-11 09:30:00 2020-09-11 09:30:[address] [facility] [id number] [facility] 2020-09-04 13:30:00 2020-09-04 13:30:00 Outpatient R CRISTINA PARRA [facility] [id number] [facility] 2020-09-04 11:08:18 2020-09-04 11:32:19 Office Visit Sanket Mcpherson [facility] 1..114 350.1.13.10 4.2.7.2.686 [id number] [facility] 2020-08-30 00:00:00 2020-08-30 00:00:00 Telephone Sanket Mcpherson [employer] 1..114 350.1.13.10 4.2.7.2.686 [id number] [facility] 2020-08-28 14:46:00 2020-08-28 19:07:00 Emergency Juanjose Ross [facility] 1.2.840.114 350.1.13.10 4.2.7.2.686 [id number] [facility] 2020-08-28 00:00:00 2020-08-28 00:00:00 Orders Only Doctor Unassigned, [facility] 1.2.840.114 350.1.13.10 4.2.7.2.686 [id number] [facility] 2020-08-23 13:30:00 2020-08-23 13:30:[address] [facility] [id number] [facility] 2020-08-23 12:51:04 2020-08-23 13:06:04 Customer Training Specialist Visit [facility] Sanket Mcpherson [employer] 1.2.840.114 350.1.13.10 4.2.7.2.686 [id number] [facility] 2020-07-31 12:45:19 2020-07-31 13:00:19 Customer Training Specialist Visit [facility] 1.2.840.114 350.1.13.10 4.2.7.2.686 [id number] [facility] 2020-07-31 12:31:15 2020-07-31 12:44:24 Office [address] Sanket Mcpherson [facility] 1.2.840.114 350.1.13.10 4.2.7.2.686 [id number] [facility] 2020-07-31 10:00:00 2020-07-31 10:00:[address] [facility] [id number] [facility] 2020-07-19 00:00:00 2020-07-19 00:00:00 Telephone Asuncioncarole Glenna [facility] 1.2.840.114 350.1.13.10 4.2.7.2.686 [id number] [facility] 2020-07-18 00:00:00 2020-07-18 [facility]:00[facility] 1.2.840.114 350.1.13.10 4.2.7.2.686 [id number] 2020-07-18 00:00:00 2020-07-18 00:00:00 [facility] 1.2.840.114 350.1.13.10 4.2.7.2.686 [id number] [facility] 2020-07-17 09:57:38 2020-07-17 10:40:11 Nurse Visit Visit, [facility] Dermatology Nurse Sienna [facility] 1.20.114 350.1.13.10 4.2.7.2.686 [id number] [facility] 2020-07-17 10:00:00 2020-07-17 10:00:[address] [facility] [id number] [facility] 2020-07-13 12:45:00 2020-07-13 12:45:[address] [facility] [id number] [facility] 2020-07-13 11:27:26 2020-07-13 12:41:40 Customer Training Specialist Visit [facility] Sanket Mcpherson [facility] 1.20.114 350.1.13.10 4.2.7.2.686 [id number] [facility] 2020-07-05 11:10:53 2020-07-05 11:25:53 Customer Training Specialist Visit [facility] Sanket Mcpherson [employer] 1.20.114 350.1.13.10 4.2.7.2.686 [id number] [facility] 2020-07-05 09:26:49 2020-07-05 11:10:38 Office Visit BravoGwendolyn Kwan [employer] 1.2840.114 350.1.13.10 4.2.7.2.686 [id number] 2020-07-05 09:26:49 2020-07-05 11:10:38 Office Visit Gwendolyn Moyer Brandon P [employer] 1.2.114 350.1.13.10 4.2.7.2.686 [id number] [facility] 2020-07-05 09:30:00 2020-07-05 09:30:[address] [facility] [id number] [facility] 2020-07-05 00:00:00 2020-07-05 00:00:00 Orders Only Doctor Unassigned, [facility] 1.2.114 350.1.13.10 4.2.7.2.686 [id number] [facility] 2020-06-28 10:00:00 2020-06-28 10:00:[address] [facility] [id number] [facility] 2020-06-06 20:09:00 2020-06-06 20:40:00 Emergency Alice Pena [facility] 1..114 350.1.13.10 4.2.7.2.686 [id number] [facility] 2020-06-06 19:55:00 2020-06-06 19:55:00 Emergency X [facility] ERT [id number] [facility] 2020-06-06 00:00:00 2020-06-06 00:00:00 Orders Only Doctor Unassigned, [facility] 1.2.840.114 350.1.13.10 4.2.7.2.686 [id number] [facility] 2019-06-17 14:42:45 2019-06-17 16:33:00 Emergency X SHERRY CURRY [facility] ERT [id number] [facility] Results Test Description Test Time Test Comments Results Result Comments Source DME/SUPPLY JUSTIFICATION 19:38:51 Ordered by an unspecified provider. [facility] SLEEP STUDY DATA REPORT 21:23:35 Ordered by an unspecified provider. [facility] US Abdomen limited 20:58:25 US ABDOMEN LIMITED 11/19/2024 10:23 AM HISTORY: eval for hepatic steatosis COMPARISON: None. FINDINGS: AORTA: The proximal aorta measures 2.7 cm. PANCREAS: The visualized portion of the pancreas is unremarkable. LIVER: The liver is normal in size and measures 16.9 cm in length. There isincreased parenchymal echogenicity and slight heterogeneous parenchyma anddecreased periportal echogenicity. The contour is smooth. Normalhepatopetal ?flow within the main portal vein. Main portal vein diameter:1.4 cm. The PSV measures 40 cm/s. GALLBLADDER: The gallbladder is surgically absent. The proximalextrahepatic bile duct measures 4.4 mm. OTHERS: The spleen is normal in size and appearance, measuring 11.3 cm. Nofocal masses. [facility] [id number] 22:23:07 * Test Item Value Reference Range Interpretation Comme nts TSH (test code = 5694244674) 0.77 0.45-4.70 Biotin has been reported to cause a negative bias, interpret results relative to patient's use of biotin. Lab Interpretation (test code = 21828-4) [facility] (10580)2024-10-12 21:52:01* Test Item Value Reference Range Interpretation Comme nts NA (test code = 8631262594) 135 mmol/L 135-145 K (test code = 1766660882) 3.9 mmol/L 3.5-5.0 CL (test code = 4431810622) 101 mmol/L 98-108 CO2 TOTAL (test code = 9594023233) 26 mmol/L 23-31 AGAP (test code = 1552646475) 8 2-16 BUN (test code = 5996481266) 18 mg/dL 7-23 GLUCOSE (test code = 8355952752) 127 mg/dL 70-110 H CREATININE (test code = 2160-0) 0.68 mg/dL 0.50-1.04 TOTAL BILI (test code = 0252365163) 0.4 mg/dL 0.1-1.1 CALCIUM (test code = 2288518795) 9.1 mg/dL 8.6-10.6 T PROTEIN (test code = 0766549900) 7.8 g/dL 6.3-8.2 ALBUMIN (test code = 4145195236) 3.8 g/dL 3.5-5.0 ALK PHOS (test code = 2495026467) 126 U/L 34-122 H ALTv (test code = 1742-6) 41 U/L 5-35 H AST(SGOT) (test code = 5943490635) 68 U/L 13-40 H eGFR (test code = 82412-8) 110.3 mL/min/1.73m2 CKD-EPI eGFR (2020). Assuming creatinine has been stable day-to-day for at least three months, the eGFR indicates Category G1 (>= 90 mL/min/1.73 m2) Lab Interpretation (test code = 51111-3) [facility]normal [facility] Gafg3766-23-29 21:02:54* Test Item Value Reference Range Interpretation Comme nts WBC (test code = 6690-2) 11.66 4.30-11.10 H RBC (test code = 789-8) 4.58 3.93-5.25 HGB (test code = 718-7) 12.2 g/dL 11.6-15.0 HCT (test code = 4544-3) 39.0 % 35.7-45.2 MCV (test code = 787-2) 85.2 fL 80.6-95.5 MCH (test code = 785-6) 26.6 pg 25.9-32.8 MCHC (test code = 786-4) 31.3 g/dL 31.6-35.1 L RDW-SD (test code = 33094-8) 43.0 fL 39.0-49.9 RDW-CV (test code = 788-0) 13.9 % 12.0-15.5 PLT (test code = 777-3) 328 166-358 MPV (test code = 47418-7) 9.5 fL 9.5-12.9 NRBC/100 WBC (test code = 9532756696) 0.0 0.0-10.0 NRBC x10^3 (test code = 9198332955) See_Comment [Automated messa ge] The system which generated this result transmitted reference range: 10*3/?L. The reference range was not used to interpret this result as normal/abnormal. GRAN MAT (NEUT) % (test code = 770-8) 67.1 % IMM GRAN % (test code = 5982407074) 0.30 % LYMPH % (test code = 736-9) 26.4 % MONO % (test code = 5905-5) 5.0 % EOS % (test code = 713-8) 0.9 % BASO % (test code = 706-2) 0.3 % GRAN MAT x10^3(ANC) (test code = 4454339019) 7.81 10*3/uL 1.88-7.09 H IMM GRAN x10^3 (test code = 0681534261) 0.04 10*3/uL 0.00-0.06 LYMPH x10^3 (test code = 731-0) 3.08 10*3/uL 1.32-3.29 MONO x10^3 (test code = 742-7) 0.58 10*3/uL 0.33-0.92 EOS x10^3 (test code = 711-2) 0.11 10*3/uL 0.03-0.39 BASO x10^3 (test code = 704-7) 0.04 10*3/uL 0.01-0.07 Lab Interpretation (test code = 88202-1) [facility]OS[facility] PROCEDURE [id number] 13:02:29Ordered by an unspecified provider.[facility] POCT [id number] 01:36:00* Test Item Value Reference Range Interpretation Comme nts POCT PREG (test code = 1605) Negative On board controls acceptable with C Line (test code = 3574) Yes POCT PREG LOT # (test code = 3575) [id number] POCT PREG TEST DATE ( test code = 3576) 07/12/2025 Lab Interpretation (test cod e = 27222-1) Normal [facility] ([facility]E)2024-07-13 23:07:47* Test Item Value Reference Range Interpretation Comme nts Height (test code = 2463419112) 65 in Weight (test code = 0095428397) 328 lbs Systolic BP (test code = 0610656191) 123 mmHg Diastolic BP (test code = 7759908032) 74 mmHg Heart Rate (test code = 3299063099) 79 bpm RVOT diameter (test code = 4547563757) 2.37 cm RVOT Proximal Diameter (test code = 3978222041) 3.30 cm Ao root diam (test code = 0478772849) 3.20 cm Aortic root (test code = 6921631530) 3.2 cm Ao root annulus (test code = 9696695688) 3.2 cm RVOT area (test code = 2608987103) 4.41 cm2 BSA (test code = 9678253152) 2.44 m2 LVOT diameter (test code = 2291368013) 2.21 cm LVOT area (test code = 8778625596) 3.80 cm2 LA size (test code = 3742986272) 4.1 cm ACS (test code = 8123386961) 2.60 cm PV PEAK VELOCITY (test code = 0800756089) 90.7 cm/s PV peak gradient (test code = 0651422086) 3.3 mmHg MV E-F slope (test code = 4062229492) 59.50 cm/s MV Peak E Anastasiia (test code = 0401215547) 65.5 cm/s MV valve area p 1/2 method (test code = 9230700764) 4.90 cm2 MV dec slope (test code = 9221077094) 435.30 cm/s2 MV P1/2t max anastasiia (test code = 1678362388) 67.10 cm/s MV Peak A Anastasiia (test code = 1646609913) 63.9 cm/s E/A ratio (test code = 1651799613) 1.02 ratio LVOT stroke volume (test code = 5423672449) 53.40 cm3 LVOT peak anastasiia (test code = 4200168447) 79.1 cm/s LVOT mn grad (test code = 5488527550) 1.1 mmHg AV LVOT peak gradient (test code = 9167408973) 2.5 mmHg LVOT peak VTI (test code = 9438625385) 13.9 cm LV V1 mean (test code = 9969923425) 48.70 cm/s Aortic valve mean velocity (test code = 1997253100) 81.0 cm/s Ao peak anastasiia (test code = 4589546845) 126.7 cm/s Ao VTI (test code = 6437611265) 24.5 cm AV area by cont VTI (test code = 9895345016) 2.2 cm2 AV area peak anastasiia (test code = 4922824333) 2.4 cm2 Ao max PG (test code = 3567159417) 6.40 mm[Hg] AV peak gradient (test code = 9603265930) 6.4 mmHg AV valve area (test code = 4390421751) 2.18 cm2 AV mean gradient (test code = 7669432957) 3.0 mmHg TR Peak Anastasiia (test code = 5093898226) 239.0 cm/s Triscuspid Valve Regurgitation Peak Gradient (test code = 4659219205) 22.9 mmHg LAV(MOD-sp4) (test code = 5235480688) 44.80 mL LA Volume Index (BP) (test code = 5648784123) 18.9 mL/m2 LA volume (BP) (test code = 2380902480) 46.0 mL LAV(MOD-sp2) (test code = 8433883821) 44.00 mL A4C EF (test code = 6684749657) 54.40 % EF(sp4-el) (test code = 2927950715) 55.70 % SV(MOD-sp4) (test code = 6286474118) 88.20 mL SV(sp4-el) (test code = 4932427222) 90.80 mL LVIDD (test code = 2334780271) 5.20 cm Left Ventricular End Diastolic Volume by Teichholz Method (test code = 8041682) 130.9 mL IVS (test code = 5207079150) 1.07 cm Interventricular Septum Diastolic Thickness by 2D (test code = 7239796) 1.07 cm LVPWD (test code = 8070885122) 1.10 cm PW (test code = 9665551597) 1.10 cm 0.6-1.1 EF(Teich) (test code = 6243130922) 54.90 % LVIDS (test code = 7776478232) 3.70 cm Left Ventricular End Systolic Volume by Teichholz Method (test code = 6090751) 59.0 mL FS (test code = 4257153949) 29 % EF - 2D (test code = 58798640) 54.90 % Radiology Study observation (narrative) (test code = 86676-1) KASHIF (test code = KASHIF) ?Left?Ventricle: Left ventricle size is normal. Normal wall thickness. Normal wall motion. Normal systolic function with a visually estimated EF of 50 - 55%. Indeterminate diastolic function. ?Right?Ventricle: Right ventricle size is normal. Normal systolic function. ?Tricuspid?Valve: Insufficient tricuspid regurgitation jet to estimate RVSP . ?RA pressure is 0-5 mmHg. ?Pericardium: No pericardial effusion. Left VentricleLeft ventricle size is normal. Normal wall thickness. Normal wall motion. Normal systolic function with a visually estimated EF of 50 - 55%. Indeterminate diastolic function.Right VentricleRight ventricle size is normal. Normal systolic function.Left AtriumLeft atrium size is normal.Right AtriumRight atrium size is normal.IVC/SVCIVC diameter is less than or equal to 21 mm and decreases greater than 50% during inspiration; therefore the estimated right atrial pressure is normal (~0-5 mmHg).Mitral ValveMitral valve structure is grossly normal. Trace transvalvular regurgitation.Tricusp id ValveTricuspid valve structure is grossly normal. Trace transvalvular regurgitation. Insufficient tricuspid regurgitation jet to estimate RVSP . RA pressure is 0-5 mmHg.Aortic ValveAortic valve opens well.Pulmonic ValveNot well visualized.Ascending AortaNormal sized aortic root.PericardiumNo pericardial effusion.Study DetailsStudy quality experienced technical difficulty. A complete echocardiogram was performed using 2D, color flow Doppler and spectral Doppler. 5 mL of Lumason ultrasound enhancing agent used. [facility] Specific [id number] 15:18:00* Test Item Value Reference Range Interpretation Comme nts POCT U SP GRAV (test code = 3255) 1.020 mg/dl 1.005-1.025 POCT PH U (test code = 3254) 5 mg/dl 5-8 POCT U LEUK EST (test code = 3263) neg Negative - Negative POCT U NIT (test code = 3262) pos Negative - Negative POCT U PROT (test code = 3259) neg Negative - Negative POCT U GLU (test code = 3256) normal Negative - Negative POCT U KETONE (test code = 3258) neg Negative - Negative POCT U UROBILI (test code = 3260) 8 mg/dl 0.2-1 A POCT U BILI (test code = 3261) ++ Negative - Negative POCT U BLD (test code = 3257) about 50 Negative - Negative POCT U COLOR (test code = 3266) aruna taking AZO POCT U APPEAR (test code = 3267) hazy Lab Interpretation (test code = 91409-6) [facility] [id number] 11:47:33EXAM: CT ABDOMEN PELVIS WO CONTRAST HISTORY: [...] anterolisthesis of L5 over S1, favored to bedegenerative.[facility] [id number] 01:54:00* Test Item Value Reference Range Interpretation Comme nts POCT PREG (test code = 1605) Negative On board controls acceptable with C Line (test code = 3574) Yes POCT PREG LOT # (test code = 3575) [id number] POCT PREG TEST DATE ( test code = 3576) 05/06/2025 Lab Interpretation (test cod e = 94183-5) Normal [facility] [facility] PEL[facility] W [id number] 22:55:02EXAM: CT ABDOMEN/PELVIS WITH CONTRAST HISTORY: ?Bowel [...] S1. Degenerative changes of the thoracicand lumbosacral spine.[facility] WITH DIFF 2024-04-13 21:22:43* Test Item Value [...] 31.8 g/dL 31.6-35.1 RDW-SD (test code = 80393-1) 42.3 fL 39.0-49.9 RDW-CV (test code = 788-0) 13.5 % 12.0-15.5 PLT (test code = 777-3) 265 166-358 MPV (test code = 72862-9) 9.9 fL 9.5-12.9 IPF % (test code = 2209581048) 1.5 % 1.3-7.7 Platelet count measured by fluorescence method. NRBC/100 WBC (test code = 2694622247) 0.0 0.0-10.0 NRBC x10^3 (test code = 4096445307) See_Comment [Automated [employer] ge] The system which generated this result transmitted reference range: 10*3/?L. The reference range was not used to interpret this result as normal/abnormal. GRAN MAT (NEUT) % (test code = 770-8) 61.9 % IMM GRAN % (test code = 0086077320) 0.40 % LYMPH % (test code = 736-9) 30.7 % MONO % (test code = 5905-5) 5.5 % EOS % (test code = 713-8) 1.1 % BASO % (test code = 706-2) 0.4 % GRAN MAT x10^3(ANC) (test code = 7995329564) 7.05 10*3/uL 1.88-7.09 IMM GRAN x10^3 (test code = 7001319929) 0.05 10*3/uL 0.00-0.06 LYMPH x10^3 (test code = 731-0) 3.49 10*3/uL 1.32-3.29 H MONO x10^3 (test code = 742-7) 0.62 10*3/uL 0.33-0.92 EOS x10^3 (test code = 711-2) 0.12 10*3/uL 0.03-0.39 BASO x10^3 (test code = 704-7) 0.04 10*3/uL 0.01-0.07 Lab Interpretation (test code = 44833-7) Abnormal [facility]. METABOLIC PANEL (74479)2024-04-13 21:16:35* Test Item Value Reference Range Interpretation Comme nts NA (test code = 5683753878) 136 mmol/L 135-145 K (test code = 5756098773) 3.8 mmol/L 3.5-5.0 CL (test code = 5154974378) 99 mmol/L 98-108 CO2 TOTAL (test code = 2777092555) 24 mmol/L 23-31 AGAP (test code = 9158189256) 13 2-16 BUN (test code = 0476105380) 20 mg/dL 7-23 GLUCOSE (test code = 1824239601) 92 mg/dL 70-110 CREATININE (test code = 2160-0) 0.58 mg/dL 0.50-1.04 TOTAL BILI (test code = 0530192079) 1.0 mg/dL 0.1-1.1 CALCIUM (test code = 5718281338) 8.7 mg/dL 8.6-10.6 T PROTEIN (test code = 1017570092) 8.6 g/dL 6.3-8.2 H ALBUMIN (test code = 4686945480) 4.2 g/dL 3.5-5.0 ALK PHOS (test code = 9737769059) 109 U/L 34-122 ALTv (test code = 1742-6) 97 U/L 5-35 H AST(SGOT) (test code = 9002424261) 162 U/L 13-40 H eGFR (test code = 26732-9) 114.6 mL/min/1.73m2 CKD-EPI eGFR (2020). Assuming creatinine has been stable day-to-day for at least three months, the eGFR indicates Category G1 (>= 90 mL/min/1.73 m2) Lab Interpretation (test code = 85185-1) [facility]* Test Item Value Reference Range Interpretation Comme nts LIPASE (test code = 3081972337) 103 U/L 0-220 Lab Interpretation (test cod e = 05357-6) [facility] [id number] 20:30:00* Test Item Value Reference Range Interpretation Comme nts POCT PREG (test code = 1605) Negative On board controls acceptable with C Line (test code = 3574) Yes POCT PREG LOT # (test code = 3575) [id number] POCT PREG TEST DATE ( test code = 3576) 2025-05-06 Lab Interpretation (test cod e = 35896-4) [facility] QVWCVWVPDCVCN9906-65-08 13:07:27 Ordered by an unspecified provider.[facility] [id number] 01:34:03EXAM: CT ABDOMEN PELVIS W CONTRAST ORDERING PROVIDER: KINSEY MALCOLM HISTORY: 44 years-old Female;Provided Ordering Indication: [...] The soft tissues otherwise of no concerningfindings.[facility] Test 2024-01-28 01:22:00* Test Item Value Reference Range Interpretation Comme [facility] POCT PREG (test code = 1605) Negative On board controls acceptable with C Line (test code = 3574) Yes POCT PREG LOT # (test code = 3575) [id number] POCT PREG TEST DATE ( test code = 3576) 11/28/2024 Lab Interpretation (test cod e = 70395-6) [id number] 23:07:20* Test Item Value Reference Range Interpretation Comme [facility] TROPONIN I (test code = 5558572168) 0.006 ng/mL <=0.034 KASHIF (test code = [...] of biotin. Lab Interpretation (test code = 21434-6) Normal [facility] Metabolic Panel (NA, K, CL, CO2, GLUCOSE, BUN, CREATININE, CA)2023-10-03 22:56:00* Test Item Value Reference Range Interpretation Comme nts NA (test code = 2550928690) 137 mmol/L 135-145 K (test code = 5857315994) 4.0 mmol/L 3.5-5.0 CL (test code = 8526875151) 107 mmol/L 98-108 CO2 TOTAL (test code = 0867821788) 24 mmol/L 23-31 AGAP (test code = 1734345239) 6 2-16 BUN (test code = 5109008835) 19 mg/dL 7-23 GLUCOSE (test code = 7199321727) 110 mg/dL 70-110 CREATININE (test code = 2160-0) 0.64 mg/dL 0.50-1.04 CALCIUM (test code = 1994430693) 8.7 mg/dL 8.6-10.6 eGFR (test code = 15327-3) 112.6 mL/min/1.73m2 CKD-EPI eGFR (20 21). Assuming creatinine has been stable day-to-day for at least three months, the eGFR indicates Category G1 (>= 90 mL/min/1.73 m2) [facility] with [id number] 22:54:01* Test Item Value Reference Range Interpretation [...] 31.9 g/dL 31.6-35.1 RDW-SD (test code = 37561-1) 46.0 fL 39.0-49.9 RDW-CV (test code = 788-0) 14.4 % 12.0-15.5 PLT (test code = 777-3) 271 166-358 MPV (test code = 01259-8) 10.1 fL 9.5-12.9 NRBC/100 WBC (test code = 5074382156) 0.0 0.0-10.0 NRBC x10^3 (test code = 7939788602) See_Comment [Automated messa ge] The system which generated this result transmitted reference range: 10*3/?L. The reference range was not used to interpret this result as normal/abnormal. GRAN MAT (NEUT) % (test code = 770-8) 58.8 % IMM GRAN % (test code = 2167020082) 0.50 % LYMPH % (test code = 736-9) 32.9 % MONO % (test code = 5905-5) 6.2 % EOS % (test code = 713-8) 1.1 % BASO % (test code = 706-2) 0.5 % GRAN MAT x10^3(ANC) (test code = 1992250107) 6.03 10*3/uL 1.88-7.09 IMM GRAN x10^3 (test code = 2806108284) 0.05 10*3/uL 0.00-0.06 LYMPH x10^3 (test code = 731-0) 3.37 10*3/uL 1.32-3.29 H MONO x10^3 (test code = 742-7) 0.64 10*3/uL 0.33-0.92 EOS x10^3 (test code = 711-2) 0.11 10*3/uL 0.03-0.39 BASO x10^3 (test code = 704-7) 0.05 10*3/uL 0.01-0.07 Lab Interpretation (test code = 17179-1) [facility]normal [facility] 1 [id number] 22:06:13Ordering Physician: KINSEY PARKER Clinical Indication: cp Additional Clinical Information: Technical Limitations: None Comparison: None Technique: Portable chest obtained at 1608 hours Findings: Shallow inspiration. Cardiomegaly. Mild asymmetric rightinterstitial infiltrateUnB[facility] ACTIVATED PARTIAL THRMPLAS [id number] 00:48:15* Test Item Value Reference Range Interpretation Comme [facility] APTT Patient (test code = 3173-2) 28 See_Comment [Automated message] The system which generated this result transmitted reference range: 23 - 38 Seconds. The reference range was not used to interpret this result as normal/abnormal. KASHIF (test code = KASHIF) The [facility] patient population mean normal value for aPTT is 30 seconds. Lab Interpretation (test code = 90719-4) Normal [facility] HospitalPROTHROMBIN [facility] / [id number] 00:46:14* Test Item Value Reference Range Interpretation Comme [facility] PROTIME PATIENT (test code = 5964-2) [...] the indications. Lab Interpretation (test code = 81569-2) [facility] METABOLIC PANEL (24869)2023-05-07 00:39:34* Test Item Value Reference Range Interpretation Comme [facility] NA (test code = 4851278075) 140 mmol/L 135-145 K (test code = 5656266501) 3.2 mmol/L 3.5-5.0 L CL (test code = 7991607010) 105 mmol/L 98-108 CO2 TOTAL (test code = 2756856726) 24 mmol/L 23-31 AGAP (test code = 9308636312) 11 2-16 BUN (test code = 4815880294) 11 mg/dL 7-23 GLUCOSE (test code = 7942441691) 114 mg/dL 70-110 H CREATININE (test code = 9559547318) 0.47 mg/dL 0.50-1.04 L TOTAL BILI (test code = 6681682926) 0.5 mg/dL 0.1-1.1 CALCIUM (test code = 8402336696) 8.7 mg/dL 8.6-10.6 T PROTEIN (test code = 4932453733) 7.6 g/dL 6.3-8.2 ALBUMIN (test code = 4532855124) 3.9 g/dL 3.5-5.0 ALK PHOS (test code = 2750983168) 99 U/L 34-122 ALTv (test code = 1742-6) 50 U/L 5-35 H AST(SGOT) (test code = 5985476750) 56 U/L 13-40 H eGFR (test code = 8826921392) 144.6 mL/min/1.73m2 KASHIF (test code = KASHIF) [...] imaging tests). Lab Interpretation (test code = 85861-5) [facility] 00:39:14* Test Item Value Reference Range Interpretation Comme nts LIPASE (test code = 6409449778) 154 U/L 0-220 Lab Interpretation (test cod e = 18087-1) Normal [facility] HospitalCB WITH [id number] 00:25:48* Test Item Value Reference Range Interpretation Comme nts WBC (test code = 6690-2) 10.00 See_Comment [Automated [employer]] The system which generated this result transmitted reference range: 4.30 - 11.10 10*3/?L. The reference range was not used to interpret this result as normal/abnormal. RBC (test code = 789-8) 4.53 See_Comment [Automated [employer]] The system which generated this result transmitted [...] 33.7 g/dL 31.6-35.1 RDW-SD (test code = 87999-2) 44.6 fL 39.0-49.9 RDW-CV (test code = 788-0) 13.7 % 12.0-15.5 PLT (test code = 777-3) 329 See_Comment [Automated [employer]] The system which generated this result transmitted reference range: 166 - 358 10*3/?L. The reference range was not used to interpret this result as normal/abnormal. MPV (test code = 94604-5) 10.1 fL 9.5-12.9 NRBC/100 WBC (test code = 9214476353) 0.0 See_Comment [Automated me ssage] The system which generated this result transmitted reference range: 0.0 - 10.0 /100 WBCs. The reference range was not used to interpret this result as normal/abnormal. NRBC x10^3 (test code = 8831944150) See_Comment [Automated me ssage] The system which generated this result transmitted reference range: 10*3/?L. The reference range was not used to interpret this result as normal/abnormal. GRAN MAT (NEUT) % (test code = 770-8) 60.3 % IMM GRAN % (test code = 0184510389) 0.40 % LYMPH % (test code = 736-9) 31.3 % MONO % (test code = 5905-5) 6.0 % EOS % (test code = 713-8) 1.5 % BASO % (test code = 706-2) 0.5 % GRAN MAT x10^3(ANC) (test code = 0825308583) 6.03 10*3/uL 1.88-7.09 IMM GRAN x10^3 (test code = 3354973353) 0.04 10*3/uL 0.00-0.06 LYMPH x10^3 (test code = 731-0) 3.13 10*3/uL 1.32-3.29 MONO x10^3 (test code = 742-7) 0.60 10*3/uL 0.33-0.92 EOS x10^3 (test code = 711-2) 0.15 10*3/uL 0.03-0.39 BASO x10^3 (test code = 704-7) 0.05 10*3/uL 0.01-0.07 [facility]PO[facility] [id number] 23:53:00* Test Item Value Reference Range Interpretation Comme nts POCT PREG (test code = 1605) Negative On board controls acceptable with C Line (test code = 3574) Yes POCT PREG LOT # (test code = 3575) [id number] POCT PREG TEST DATE ( test code = 3576) 2024-09-24 Lab Interpretation (test cod e = 34236-3) Normal [facility] [id number] 18:13:10* Test Item Value Reference Range Interpretation Comme [facility] Case Report (test code = 6393744401) Surgical Pathology ?Case: [id number] ? Authorizing Provider: ?Marcos Rodriguez MD ?Collected: ? 04/25/2023 1313 ?Ordering Location: ? ? GI Endoscopy OR Department Received: ?04/28/2023 1017 ?Pathologist: ? Lee Glez MD PhD ?Specimen: ? ?STOMACH, Gastric forcep bxs - Eval for HPylori ? Final Diagnosis (test code = 7210100247) q2qwfSMuMMTie6giBHWrxK FuZzEwMzNcZnRuYmpcdWMx UYgfzwCtXTvmzGxfSVB0TY KyXW9afRvrvWc5iGzlEUUp gcV8tUViNTcwv0hzCUW2d7 rwoyyjNFNaSWsmQg4udSVn yIdnFfArHDTiHZv9rD78DA TriS7vwWZlJGs5RVZviWHf ceCfRxXyTGWyaAIafLS9LN WvNP2ejlwpAPfbIRvkKSCq epV2CBKcmNOsP2IzRVNjNA 4ukzvlWYB7GTtyDILkDPZ3 KxPwVTLwh1Tmbrg0HxImqR FyZFxwbGFpblxmczIwXHBh jlLUAsAHJN2PHXWYYDGZBZ 0LH2d4OUWihmEeOIVvDW4g T2SGFTWFDkCKMKAMU1ToM7 fADMDRYrQGVKIVV0lWV3cZ DGGWLV0YSVCrwMNyORCoTR QhWCZJDhNWLtVUC2KCWzOJ TY4JJVYYUWLNQSUxZZGTEm RJRklFRFxwYXIgICAgICAt RD4KPFewWSpMW7WYOM7MD9 FOSVNNUyBJREVOVElGSUVE XHBhclxwYXJkXHBhciBHaW rjBJO7ekAGOA32cccuJMGw cGFyXHBhcmRccGFyfXtccn AyJZdky8RrB5ZdJiFsQIyq bnNpXGRlZmxhbmcxMDMzXG Q3euWgRHDrVHapPSHsJXts Yo6rdPPzqYnqKqAeCDDbz0 ayzoKHUYbsIiChR868MDGp PMebx3zar0BrSODpmHFaq4 N0YPNQokmvlFk3l4afEmNs FjY3qYUnEWusB5bhntUudJ MnB6QycMLpqPu0jMwpC75s q5P6ToeoC5nsDHWpZHYaB9 SjBO6eEOHwLae5HKH6ESS3 QLTsURUpW0EdRX4cEMRokR KzOJu8n7dwzJqhYWExKGJ4 k5cbKStsnsS5WZ6yme7fmA s7k6anibOpYXSrEGDsnAVM IDLyQ2VnuQqnKr9dcBp1zZ klKhcmVVE2Vvp1UO9wtv77 wxa0jTfoJYTuihrcXqY0CC roHIYcaeedOAq4HFbhHIBc zQX1KMAreBQiV9DoKBYrKB 0mynl5GZZ7WPuvLFQqMxV9 NDBcaGVhZGVyeTcyMFxmb2 23TKM5GdWmFM5hS3Fli8M1 wB1qgYAuYSHajYBhGaNlFI Ifqh1azTYiPLflm3JoLEM1 zuR2nQSpcDLsOCTzLU92Ei keu6QjSwrmCDJ4FTYsyzDf i9Aoh2ipJeVkgdSxS3avP1 JyZHJoZWFkXHBnYnJkcmZv t1Mkh1IvbJMtmLk9h3foWD LzTDStfNmzu7tpVQD7DFZn S1I6vMKpr4fzSZdoOQNgcA V7ttL9RTAqcJAjQ1NiyF5s ZCLfBG9pron8g9qpPBS5GH tfAPSkWkN3kgK4LZUtzGTy HFWplSirTJuub645ZWF4Ha QrSQNsm0AnP3XvrSrtX31i zMckO59gOISfyYoxvI5ukA wrfU4kKwCfFsPvEEylgGxd bGFpblxmMVxmczIwXGxhbm mdNMQgFHwpW6tnYjZcRTFz uFchOHmkz3PsXYAnLUXdZe xmczIwXHBhciBJIGhhdmUg fLAkk05jFPceqNEvJKTjFL baDKBcdElaz9HbC7hlON3e T6XouVJpzxTmppJeSBffXN Abn4u8uCXvuPhki0GrbFRg ID16unEqTPCfZDR6SNExa4 icBA24lzniLiXmhM01amLu pbMbDMHie0opZ3jxpFXhd4 Ctz9SrooOdQPtwm9CkCR5n bPAmeyujxEL4NERiyNJkdp SjkxQ6eMmxJHYgeF8pdU4r nUaoeY8sAuGoJtZfUPemRR 8dCCJzQ8lylQOpICBvITFx Y3rcKqNqaX8ntLtyRxvfga N9JISgzm21 Clinical Information (test code = 7973653639) Abdominal pain, generalized [R10.84]1. Gastric forcep bxs - Eval for HPylori Gross Description (test code = 6904543986) e2ntoSAdABNqmGZESJG5LN QnJL4yfQdejQo7gBgjRPYx qlR9uNXiJBvph8mvWAG5s8 ykrfXAKuyoVSOiHO1oBIto KPCePX7fKmDlVCJaDkJuQS BhcGVydzEyMjQwXHBhcGVy qBG3OBUmHJ4utlcyOVxiPT xaHTRepkR9MWQhoAVdV5Ei IDLcFF2lbqilGJY3ZAZVRm xsLn4nrBQbiAngKmAsOrDm YXJzZXQwXGZuaWwgQXJpYW p5mA1VGjogXWW7VVYFPxoh KqwfvMwdj4AdnNKhLFPmPV xcaWQgNTEwMDAgXFxkYiBP BaYdHwF5Ghv1PFUrYaU2LD x6WMFWJZSqRewbNTM4DYO8 IQb9IHRmXT7bAKsjnGRnFX rxWfyoSZocY710YUwlPZQy E6EiV2FyEXjuCrTzWEwrNV VmYHZjMBujLLJtU8GXFJJk VFE5IsZvVAPuWRq9BZhwX9 RYAUSyQZZmOuCvPnO5AzT0 WJz4GTXIJh8dHGwuUnKbHB R5YEH5BYm3IjVtRRJyItOj SPRkJETgMSildJTbZY6ccW wpZMKiMD2LETTqOCmdZGOb OcPrA1WBH8cNUW4iEHyvkT JjaFxmczIyXHBhciANClxw QTJzXE2HYLIcZHadBEs6oa HrYJQnAzUnYBHqL78uf6HB p5GjUQ9DWDs9koVmrhrtyN 7mRNDhswAbFUpKwBIuoM7e uqOPYPvoKUCnA2MsxkEpPY yqKTOdoy3oqWmoENpaBkOf bGVkIHdpdGggdGhlIHBhdG tjnvRdS1Y6mnWgAL5nPFBC DFWurM5vVHQbNTXpo7BpoI HvrEizH1ClnBBiAzKwp2Mi JKQsTgoaCBB3SPluAz3mUQ dxSEZ8mS7khXulOhMlT4Y3 FSStRMGek86opYJ4bqDmQa PiEEVsscVcanPcU2NpQNGc c46mpQP1iGVbbVEySgFiT3 0vbnKtEGcrOlNfQW6vASYg YAneJHjtTZB1UEQ9HSXqaU Wig4xaopnwMJ29IGapKA2d UQinHV2wEKEfYRcdXBLkI3 JfK6P2VNalNTLxRJNqpICc vU3hdxMvvrCigBj9YYUgQP J1wZNqiNbcBZEvUwytfXQ7 YMBwMxLurkZnm0EkhRk2uB UgTQojGJQapV9ocR8qOCIn XHBhciANClxwYXIgDQpcc2 EzMFxlcGljWHNhMzAgDQpK xXmdPMSRQ1dwzETcLPeyTB BJUQwHP8HWQW7XVKCfnPPF SOZ8XM3nEOheEXIuJ9KvY7 NgtpD1n6kzeAmdj6LahOHn KG5rkTVjNY1SGEKrrfRmDL p9 Disclaimer (test code = 6817873299) d0rdiYYlKREmz4mdZZAdkR FuZzEwMzNcZnRuYmpcdWMx SKwyxcLpVYirn9BlT3YbRk AwMFxhbnNpXGRlZmxhbmcx XMMcWDK4cmYjWINpTGyfJP HoULlpXk3naNFjzBrdHfEs JNPqf7ezurOJXTrgTqQiV7 46MRZrHMnio3bkx7YxCBBj yCKgi9Y2MALCscgmnNu5kH lmF62zg7Q3XtxzO7ecLYWr JTEcB4CsDS0fUDWlFjb7WL Y7ATQ9ONExJKHwV1DyUH7n HBKyrIOnIJm8x0xzjHqbJP LbEPP3k0mzYJgumwCdPD8n ps8gtVv4g3qbctGuRGShTA ZleJOQSQFyL5IwzKylMx9t eGo9cWxtSpjuWOJ7Epi0TF 1fsw42mtl1oClnRMFjyeyf SvG1WPisVPFxaedkYMh6YH mwDXBuiYK3VLPybWJnY5It ZJLkTK4lhmm2TFJ6AQhdSR QkLqX7SIIcwCCzBPEbdHij NSthk491RGY1QoLmBI3tV1 Pax4Y4zW9lqEKhXZUklAEp GaMyCJIwvr3ofMSsAYvhx6 ZpRIY3rwB4eRNpvFAaACYd HQ09Wfsaf1IrNnpto7AnF4 5zbQU3KEtwz6miWR7aLqF2 smRlYQunz0rsfT5lUiV2QQ kjIQ8jXU4yAYLaqU4ejyvg XHBnYnJkcmhlYWRccGdicm ExAy9wdHcbYGK0JPklC8gf vO8qSlK7PKsmZ2vlmH9qQW l4IUhwlJH6BFUswR9pGV7k hbxxq9fcCJgnWTwrFBKzev U5swN9RATeiXSpR4QyfR5m GQVuIF2thuuji6ruOSZ3TX sdCWZtNNL3DrAqEAMma2Kv axu6ScUjf9NwnDTdENxmT6 5dt420ORZoseRaS3psiNZy yshvmSLbvwmrKJtrerJ2TF KohzKcy5FnCZBnJVZ5WCfi HNidtEXvOFDsfTpqm0usV8 RscGFyXHBsYWluXGYxXGZz MjBcbGFuZzEwMzNcaGljaF gbETngNoBoLLWkNOdhA5qv OtLgV5AfJLXuScApjCRfR1 ggVGhpcyByZXBvcnQgbWF5 PGgoG1x2UMSywfYkgEq5zg LjTiLkNUChIKT2CVizwUVo RRTlu6RpgrlfgKUyFe0yoO WeICTtzA6dAQRpVZWyKEda YT9ezMf7QPNBmIOtnDHvGb JNGQOzZJ30irQoEFQExgyw q6J3ZSrfCEWym4NnwDIoU4 ety5CqBKUxl62xKC1cv0O2 q1dzRTM5DC9cq3DoWQEtyI VhdQQpEGLpc8Sbumpuq9Ns MBHedcOiv3FsBWXkscIzeK XlHMRcxyPpst1svbLiYEIx CWPiK4EjnxdcsMxegeBaBY Cgyo8pmjZoQLA3LTXGFBTt RMUfc9UsfW8clAJPKTC4lS Gzrg6jdgVMfYEfZXVygl65 URBzVV5mM9uaLRDxWJUikh YjmXEdk7XpVWWbmPO3pNHl PN8NYrASc37gCLNkGWSMxf ByBMMyjNrdcFN9vqJ7gV6b IChGREEpLlx+IFRoZSBGRE RrPH8yveWci7KipcTduHug QSYgmQKms5QnvORmd2NzgP tzn9AopMEsfRFuBS7cHTEi clxwYXIgVVRNQiBMYWJvcm A5j4XvKUXoHXSyKIU2eFku uyf9DLEeyO7zOMFuS9jgqh jrLJpiGWVsi1IknA0jsSNQ cAJyy9SehUBkhMMCnLLlDT 5zvbBeKHjUEEtQMJM1peSz UDLpi2NyTTyoD1gsG60bcI yqzVa3sHV8EPO2oL6rOir+ IFxwYXJccGFyIEFwcHJvcH NaQSRtaLclqdEdE9DdboCh lN8qcLYwzvLeJR7oRO1tK1 A8kGNxXEYhnkHbw5vsRGet dmUgYmVlbiByZXZpZXdlZC Pgq2WsXOdwWHU2ABvbhsVt bmNsdWRpbmcgSCZFLCBTcG XtfZFmYIJ2HOxantRifoRp SF0wvA0ncVufyW5wmJMseI C0ktowOHQxVUMitIjpBVVo QY4ikKsmhA6pAuWgGuHoOA wqAE0tGTPhB3vpzKFpIVCy QPIcZ9veIuIqzR3ohJzaJV xjZjJcZnMyMFxwYXJccGFy XHBsYWluXGYxXGZzMjBcbG FuZzEwMzNcaGljaFxmMVxk SvUaWJRdDEiwS3vfPiMyN7 FrGHSjBgEybBHgB0ejUBcf IJR8ZKKiQE0ogZUeSJ23iX Hhe0nnXRmfnFateg9cG69f aLFbPGhzhAjwMPSsi53uh1 HmFFTdsjQcqd9lSJTpimY7 iD8kGTHioNorDOWoyOPcTB Tsg7FkUHibzQYebvXsKLyn RZYxSFOvbWEgkgC5suVuly NsrjJuMZJhuGlgRVMjz6Md JHDlNHqgd1Dygx4onXXfMR YdwlROfZrepXBwvO2rP6Mv CLBpUSXivv7zNVJtmX3kDE xkb1XojldlDZGaXGQiEMAu ieWitu1nLYDhoUYYRT3URS qwhAWbs8QbcnUuI7tZEXK5 NUQwNjYwMjgxKSBleGNlcH YqELRwpv68JIFrvP8zdHla UZQrkS2caN0cgHqblR6zJp WvPyApCUqgUO7aEVVhK5ix mTDzRDWhVHNvR4etGhRnyK 9jaFxmMVxjZjJcZnMyMFxw YXJ9fQ== Embedded Images (test code = [id number]) [facility] [id number] 18:13:10* Test Item Value Reference Range Interpretation Comme nts Case Report (test code = [id number]) Surgical Pathology ?Case: [id number] ? Authorizing Provider: ?Marcos Rodriguez MD ?Collected: ? 04/25/2023 1313 ?Ordering Location: ? ? GI Endoscopy OR Department Received: ?04/28/2023 1017 ?Pathologist: ? Lee Glez MD PhD ?Specimen: ? ?STOMACH, Gastric forcep bxs - Eval for HPylori ? Final Diagnosis (test code = [id number]) [id number] FuZzEwMzNcZnRuYmpcdWMx IWnuieDkQCuyaAfgQFF6EC NdNL8buRdrrMd6rGukETLm auA2wIAeGLuox2wqLDY4v0 zipcqwYYYnMTnhCs6ygNSp nPnyNsIhXFNaGKk2xV39TS IllS5xoADxQHw7ZQEpoOFt keFqVqYqGKGrfUAncAV8PS EsFY3ekvbzVPmjWRidTQWm ciM8BGKdpVUoE7BoIEKdZO 4ojfflYWS6UXwqVVEpKCC7 LeBeWAQee3Smkum9JmMzvM FyZFxwbGFpblxmczIwXHBh qbEQAdHFZW6NVAUCAANYBI 8CT4c6FDUpaaTfLWSrII4s R2ZIEMYVUkDJFBKQU7GzZ1 aIVGCZKaGPTJGHS2tGJ9pX YEIKFS1ICJDyzPHqCHZsHA WiEBTIVzRHEpAZK0HQWnKQ FX5SRBJZDAWMKPXeJCSBHl RJRklFRFxwYXIgICAgICAt IY6CZJlsSHcZZ4IPSW0VI7 FOSVNNUyBJREVOVElGSUVE XHBhclxwYXJkXHBhciBHaW bzAOJ0hzPKTM46ylbsIUGm cGFyXHBhcmRccGFyfXtccn KlCVbsk3NvN6HkAuNaFXpa bnNpXGRlZmxhbmcxMDMzXG X4joJrIKPbJTonUQLiGGrv Cf1shFKfqXzwQdEsDAUnl7 ixjzYERZekJlOiF738PQQp PBjrz8qhi9OoTMDwcLPid9 S6RVEEfabpgFx5n1ciBaVl EcG6xOZcKEyxB5htkoChsP NfB5AypONumBd2kXslO67p i8I2JreiA4ljYDEvXOGfX0 MkAE8wVVWyQqp5UVX4JWG4 IEJnALQjD3WqXN7uCQWunO EjGGj2r7fajMfkJNPwXXZ0 c3jbYJckgnA6DY8ymj8dmT j4t8jynbDvIUQpISVdyQNH AGXdH9BbaLpyYi7shIp6kL raCxvuMNX8Grf4WC6sik26 zhd3zVvzIHUlwaukTnX9VH vsAWYnvmdyNRo8SJjfVSZb zNS2CIVasFMsK3WhVRKzLY 0pikd7RIV8CFnpDUDlZkQ0 NDBcaGVhZGVyeTcyMFxmb2 59NGN1LsXpVP5kY6Rat4T1 pI6riNUbRVAbuXEwPeVvUQ Btzs9mbUKjSBbjl5EfPDG8 bnF5dSDeaGRjJQIxKC80Mw rrh0WwPpajXLA2AAXgsmNm e9Aua9aaHwRfckDmQ7beK3 JyZHJoZWFkXHBnYnJkcmZv c9Avb5LlaZDiiBl1w8giVA JuDCAgoIwpe6bsTCW7NLJm J4E1zCGps5qcNBktNGUldA R6yxV5HVKstJHsQ7EuoT3r YXYaGP2mucb7c9hvGAM3SZ njGLXxLxK5byE9EJSffXTb ATCbwZomTSinx067IMY5Hg ZdSMEhv8DrD5BivLgfF82l pSppR92yUJVkxGwxlT3mhK tkqD6nVqTrVzYcTWsdmZfm bGFpblxmMVxmczIwXGxhbm dwZFQgKRuwF9dzBpUoFGTd bDexOHdqq8ZoSIOvZRPpDu xmczIwXHBhciBJIGhhdmUg bKQgs55lMPewaNVhABLqOU aaUSQmzRfwq8ChO4sbKV5k T6YtnAXctzHuifTsOLvpXD Hij2w9mLEzgWwzy4KipZWx EY91zhBtQYEmJEZ7DEFtc1 phPX91vbwpDeWscE14cqOm lwIaXTTqs2goO1uvgZKtq8 Xyr0WmlnOkUEamy0GoXQ4k aJPkttzqaNH8FQOwoBRqit NxilC0rWatZNIzgB8wmC5w pExigR6kGoYmZiAaQPuuNB 5eZJAyB7twwRVgWYEeXFRi F2qwSjCmsC8pjYenBljqem B6IQOzbw89 Clinical Information (test code = [id number]) Abdominal pain, generalized [R10.84]1. Gastric forcep bxs - Eval for HPylori Gross Description (test code = [id number]) v9iecGLiDDNhrMLQBYP4LQ LbGC6eiEmdvNm3eBagCJTz xpO9wQTcIMuug8jtSBD5c7 wezqWCVzugSNRrXR3sRWis KFJgBO6mRxKeUWEoIfSnKY BhcGVydzEyMjQwXHBhcGVy wXV3KWDwRX5fczjfKFrlND fuTKPivaT0QQJheDOrH6Lg BISjAE7ifzvmKAF8XSMQUi rfQq9trGFhfQnyOdOyHsKo YXJzZXQwXGZuaWwgQXJpYW u8vR5KWakoTUN7SLOGNuyb BbxykRqvw5BtiXPlBDQdOB xcaWQgNTEwMDAgXFxkYiBP OvPvYmP8Fon7MZZlWrG6CJ k2WMLVXTOxJhfePTX2YZD0 PJs1HWFdRC4aQYajeUKzGR dvBscuOVlmZ694RDcyWJMv N1FnX4IdANmoOxOwTJjxPP YjSEWlJUhaLEXgP6DWGUVl WSF3EqLhVEKmBBs4TTogD3 MLGLCvMJMlTdYnZnE2DcV2 KVk7YLTOFq4mLWjqGqLhRA S5VTT5GZt9EpMeHWWaNjOh BIHkZBZoOTtalZLwEI9pxE lmGWEsJW6LUSSbOLwcGZCd EnZaF9KUZ2kPJH1eVZsuyQ JjaFxmczIyXHBhciANClxw HNRqGA0AWBNwCDqvHDx2pf MpGKJnWoQrBOAqD50ld7FL b9TjKY6VFUu3hrCtodjxyI 4tROFqubBkXSwHvZPeeB9j neMREOhmWBDrS7PhspWzIY duFPIhkk9tbWbpCUigCqJw bGVkIHdpdGggdGhlIHBhdG oxpoPgM7N3anUzWH0zXBXV PMSmhG4yVFOmTTCec0BhqC BrwHprW3VefUMyViLyi6Hb PHIvGumiWWD9GTctWx6tHB nySAF6gG4jfTvwMwYqR8K8 XYZwEUFuo09vlQY5dlCsPt QgXFOvnmGsgkHgH2HcUUDi p91htPP2yAVxyCPlEtVaW4 3quzAfFKywKoGaDB9xACEp RIjuLSysQHQ4ZTR3LCHniY Fsy0ehrtjiKG30VGfkKG0w HExkXA6kVSPkGJxfPVBdO1 GoT0J4JNvpXJBkLJJvqNAc aH7skzUyvcXviPr3VJTeUS F6wRDvdIkhMOSjWmhjdDF8 ZJNkSbXsebUhq3CmpAx7nR GnGBnaSRFuvL8ozW0bTHFu XHBhciANClxwYXIgDQpcc2 EzMFxlcGljWHNhMzAgDQpK oVokHOZZT9wzqEYkZMpqNF UZWMcIP5IQRT8XNRDngMFH BLX1KF9qDBfiDTJyZ8TgT2 BbnnK2l9mcgTyfw8AebASx KL5seIUtNX2WHCUkqrOeWT p9 Disclaimer (test code = [id number]) x4pprKGkFRJhc5rcWNMtsG FuZzEwMzNcZnRuYmpcdWMx CAfvheRoSCydj8QzR3IjTv AwMFxhbnNpXGRlZmxhbmcx BAWgQDZ8caOsMDOcUAdhDD FzZFjkIg9nzDVkyUzpWfEu KKFyb6rztvNOTTqlMbYdN0 22QAZkPYjyq8gdg4WdWXQz iOKiz2M7MSKScgmupLk4bF luS89ao6P9AscwC4rxILLs CAByB6MkZY9uSVRvUky4PN D9TBI2HUMiVJGgK5AbFX9s QQTaxWKsOPc1d0hmdXsoCN NpPWP7a2osXQpolxVsRO0t aa2qrRt6v9xgqpVeJPNhXS IflGNTKURhQ5MlhFtoDv9c mVv4uEbbCxmtPBZ2Xgm3DU 9hjc33giw0dYrwOPEomyzb InD6DLypZCVzezrfJKq7TR wcQGEtaLU0BPJuyNTtJ5Xl CTRnEW8acpg9TAW0URwpGL CgQbT5WYUydEBdQZOgrCci GCkzr919NSF1GlPeIZ3aP9 Gdq6C3mI8egUPzNVZmjOGc NeLgFNGtub2wiTTmUVweg5 XgXEV4txS6hNEghPXnNMAl OR86Rllje5EuFqytn0WwY7 1pePQ7URyqp3wzER1iMdT0 soAnRSmda5qjcF8dYeY6JR wnXN5rTJ9iPATcrF0vvgka XHBnYnJkcmhlYWRccGdicm QiSm2sxFizHJG0KMtnY8uf bK0kZyB6PFsrK0kseV5sLO u2KKsmlSG5OJQjiE1vTI7g rwrtx5xrLQrpOGauTRQdgl S8koH3OYGidJIyI1PwxC2w FMNpYK6hwkscl6xmOQU3BW ycIASoEAT1OyMmYKRrn8Ry ich7WtDwn5GygESfGIwhR7 3ix800QMFtsaIjW8nnuLHq flqstLCouhdbEEptjkW4WP CuxjRsk4RbCHFxGEH6KKgr NDhnhLIxXYXncBcqg5kfE8 RscGFyXHBsYWluXGYxXGZz MjBcbGFuZzEwMzNcaGljaF wjYKmbGyGkBDMoGWqaO8mj SzLpG5DrFSCqJkEkiUCsT1 ggVGhpcyByZXBvcnQgbWF5 WIheM3t3GXGnccDfdAk8gf XrAbArKNPiPWD0GIpztDNj POBzx1DelpzfuQYzNu1jiU AjDZXibJ8zJDTyDBRpFEdn DL1txKz5SDWMvWVusVCxQq BVMRWvED28yvApCZSEshdd q5H4HOjwRGBie8PujTZgF6 tth8YzIFPbf85iDR2pd7O3 y2osDCT2UR5lw6NgABWvkZ YitEAyRQZdd3Etogpnt2Jl EAFapsVsc4EcPZDxylEqmU DgGTUdhfGpvn7kxjAaCVVi DZEtX3ZcpduuqSeazoSnIY Mkhc8oinHsLVJ0BRBLDCVd AOGyd7FzwR6tiGWKUFZ8sK Wokw3gmyEKfGMxVFKbrt39 MVYyMG4fR1dfQWDzXCXbhi PqvGFyt7MdQYWlzGH0iMNa PA0YQcBHh78kQORpVKXLwk CxECLbhMqniOR8tuO3dV3c IChGREEpLlx+IFRoZSBGRE TmFH3ajfLzx3PohkOmuLwg ARYepKYcr9KtjNDjj9NiyT nna1JuuKSwuJTkXI3wIBKn clxwYXIgVVRNQiBMYWJvcm N8p9JgQQDbPYIjKNY2xAmi dby2MUOloP8lFRVwI5owjm ppYAomDQCml2CsmS4oxGZP pYHmr9HteMRszYCGfOVwDZ 7zkrMsFJmOSTbMRQV7qvSy SPJak8YpPGfjY0qaF33ooL pguCd0bYQ8LBB1vM3uZud+ IFxwYXJccGFyIEFwcHJvcH UkYAAroKkblpDhO6MlveXh pC9axTCkbhEeXT8rFP1aY2 X3fUWbBSZeweHjx5mzVShw dmUgYmVlbiByZXZpZXdlZC Jfs4GyKGczWII5CKoewoLi bmNsdWRpbmcgSCZFLCBTcG MofVPzHSI4OHahhqAomqCx DY8emA1hiSxmlK2njNDbkU J6kqrvSTPoSZVawWutCQUq PI8qbIhheK9vCdSrBgBoRN ukJZ1aFJUrA6eoqJPwEUCi CDDgC2qbTjHwaA5amAqrOV xjZjJcZnMyMFxwYXJccGFy XHBsYWluXGYxXGZzMjBcbG FuZzEwMzNcaGljaFxmMVxk SmCeXYTjUMydQ1gzEdHfZ3 DlVTBoHvKwcSJrV4rgRYgh RLV9VVBlAO3iwQOaKI26aX Ddp0qcIPhfbVadjv7lM25u eDReEMkpzAbdOFMsx76fl0 NvCCSffyFjex7vUZAqvlA6 kT5mMLEdkMayZFJsdBHpWD Yhn6MkAZjauVTgrzQzYGem JKAnPFLkcCDnglP2cyCmle JwarKfCVTafHcaFMYdr8Vr FAKhWXyrl6Bxrr9ncDKcXE PtupBNhDuuzJIwjX8iW1Kb ROBeRWIcgh5eJBWivB0hQV jtu9QkdyhzJXFiSNKjNFCm cdMpns3hUGBpyNKRNR8MGZ htyTOib8EkpwSeH0uRJFE0 NUQwNjYwMjgxKSBleGNlcH YhCZGkal29YCIdqH4hdByh QAXquZ9rtV3peJmncR1lSr SqRlUpVFafDH5fTBAsY3vo vDPuOOJyGPVeV0jgMwNbeU 9jaFxmMVxjZjJcZnMyMFxw YXJ9fQ== Embedded Images (test code = 3357932920) [facility] [id number] 17:55:00* Test Item Value Reference Range Interpretation Comme nts POCT PREG (test code = 1605) Negative On board controls acceptable with C Line (test code = 3574) Yes POCT PREG LOT # (test code = 3575) [id number] POCT PREG TEST DATE ( test code = 3576) Lab Interpretation (test cod e = 71615-9) Normal [facility] [id number] 17:55:00* Test Item Value Reference Range Interpretation Comme nts POCT PREG (test code = 1605) Negative On board controls acceptable with C Line (test code = 3574) Yes POCT PREG LOT # (test code = 3575) [id number] POCT PREG TEST DATE ( test code = 3576) Lab Interpretation (test cod e = 07607-1) Normal [facility] [id number] 17:55:00* Test Item Value Reference Range Interpretation Comme nts POCT PREG (test code = 1605) Negative On board controls acceptable with C Line (test code = 3574) Yes POCT PREG LOT # (test code = 3575) [id number] POCT PREG TEST DATE ( test code = 3576) Lab Interpretation (test cod e = 95474-6) Normal [facility] METABOLIC PANEL (03997)2023-04-22 00:07:45* Test Item Value Reference Range Interpretation Comme nts NA (test code = 0549969246) 141 mmol/L 135-145 K (test code = 8012995852) 3.6 mmol/L 3.5-5.0 CL (test code = 8027890835) 106 mmol/L 98-108 CO2 TOTAL (test code = 5675130583) 25 mmol/L 23-31 AGAP (test code = 6303039046) 10 2-16 BUN (test code = 7485157982) 12 mg/dL 7-23 GLUCOSE (test code = 8398883569) 91 mg/dL 70-110 CREATININE (test code = 0407903439) 0.61 mg/dL 0.50-1.04 TOTAL BILI (test code = 6084306135) 0.9 mg/dL 0.1-1.1 CALCIUM (test code = 9633772460) 8.9 mg/dL 8.6-10.6 T PROTEIN (test code = 3678811833) 7.6 g/dL 6.3-8.2 ALBUMIN (test code = 6184750436) 4.0 g/dL 3.5-5.0 ALK PHOS (test code = 6263536338) 81 U/L 34-122 ALTv (test code = 1742-6) 62 U/L 5-35 H AST(SGOT) (test code = 3232829619) 98 U/L 13-40 H eGFR (test code = 6371866591) 107.0 mL/min/1.73m2 KASHIF (test code = KASHIF) [...] imaging tests). Lab Interpretation (test code = 30160-7) [facility] Test Item Value Reference Range Interpretation Comme nts LIPASE (test code = 8247224906) 111 U/L 0-220 Lab Interpretation (test cod e = 22360-0) [facility] (10017)2023-04-22 00:07:45* Test Item Value Reference Range Interpretation Comme nts NA (test code = 9046499663) 141 mmol/L 135-145 K (test code = 2037151887) 3.6 mmol/L 3.5-5.0 CL (test code = 1204694123) 106 mmol/L 98-108 CO2 TOTAL (test code = 7492755257) 25 mmol/L 23-31 AGAP (test code = 4122479751) 10 2-16 BUN (test code = 7278076147) 12 mg/dL 7-23 GLUCOSE (test code = 1035472131) 91 mg/dL 70-110 CREATININE (test code = 7137806785) 0.61 mg/dL 0.50-1.04 TOTAL BILI (test code = 1004543447) 0.9 mg/dL 0.1-1.1 CALCIUM (test code = 9860642812) 8.9 mg/dL 8.6-10.6 T PROTEIN (test code = 7006275031) 7.6 g/dL 6.3-8.2 ALBUMIN (test code = 1003918379) 4.0 g/dL 3.5-5.0 ALK PHOS (test code = 1158868224) 81 U/L 34-122 ALTv (test code = 1742-6) 62 U/L 5-35 H AST(SGOT) (test code = 9709548992) 98 U/L 13-40 H eGFR (test code = 0884942948) 107.0 mL/min/1.73m2 KASHIF (test code = KASHIF) [...] imaging tests). Lab Interpretation (test code = 82195-3) [facility]* Test Item Value Reference Range Interpretation Comme nts LIPASE (test code = 4248775347) 111 U/L 0-220 Lab Interpretation (test cod e = 42799-6) [facility] (21398)2023-04-22 00:07:45* Test Item Value Reference Range Interpretation Comme nts NA (test code = 0839680014) 141 mmol/L 135-145 K (test code = 0711705967) 3.6 mmol/L 3.5-5.0 CL (test code = 0732192299) 106 mmol/L 98-108 CO2 TOTAL (test code = 8125215684) 25 mmol/L 23-31 AGAP (test code = 0015396671) 10 2-16 BUN (test code = 7452631644) 12 mg/dL 7-23 GLUCOSE (test code = 2382734097) 91 mg/dL 70-110 CREATININE (test code = 2488167010) 0.61 mg/dL 0.50-1.04 TOTAL BILI (test code = 8080531767) 0.9 mg/dL 0.1-1.1 CALCIUM (test code = 0447408053) 8.9 mg/dL 8.6-10.6 T PROTEIN (test code = 6398541297) 7.6 g/dL 6.3-8.2 ALBUMIN (test code = 0878695437) 4.0 g/dL 3.5-5.0 ALK PHOS (test code = 5223601834) 81 U/L 34-122 ALTv (test code = 1742-6) 62 U/L 5-35 H AST(SGOT) (test code = 9818485310) 98 U/L 13-40 H eGFR (test code = 4640112667) 107.0 mL/min/1.73m2 KASHIF (test code = KASHIF) [...] imaging tests). Lab Interpretation (test code = 55123-9) [facility]* Test Item Value Reference Range Interpretation Comme nts LIPASE (test code = 8228919460) 111 U/L 0-220 Lab Interpretation (test cod e = 83698-6) [facility], [id number] 23:59:37* Test Item Value Reference Range Interpretation Comme nts PREG SERUM (test code = 0475360270) Negative KASHIF (test code = KASHIF) Less than 10 IU/L. ?If low titer or ectopic is suspected, resubmit specimen in 48-72 hours. [facility], [id number] 23:59:37* Test Item Value Reference Range Interpretation Comme nts PREG SERUM (test code = 0292966300) Negative KASHIF (test code = KASHIF) Less than 10 IU/L. ?If low titer or ectopic is suspected, resubmit specimen in 48-72 hours. [facility], [id number] 23:59:37* Test Item Value Reference Range Interpretation Comme nts PREG SERUM (test code = 8226001358) Negative KASHIF (test code = KASHIF) Less than 10 IU/L. ?If low titer or ectopic is suspected, resubmit specimen in 48-72 hours. [facility] [id number] 23:49:04* Test Item Value Reference Range Interpretation Comme nts WBC (test code = 6690-2) 8.80 See_Comment [Automated [employer] ge] The system which generated this result transmitted reference range: 4.30 - 11.10 10*3/?L. The reference range was not used to interpret this result as normal/abnormal. RBC (test code = 789-8) 4.40 See_Comment [Automated [employer]] The system which generated this result [...] 34.0 g/dL 31.6-35.1 RDW-SD (test code = 89173-2) 44.9 fL 39.0-49.9 RDW-CV (test code = 788-0) 14.0 % 12.0-15.5 PLT (test code = 777-3) 288 See_Comment [Automated messa ge] The system which generated this result transmitted reference range: 166 - 358 10*3/?L. The reference range was not used to interpret this result as normal/abnormal. MPV (test code = 74394-1) 10.0 fL 9.5-12.9 NRBC/100 WBC (test code = 3945183858) 0.0 See_Comment [Automated me ssage] The system which generated this result transmitted reference range: 0.0 - 10.0 /100 WBCs. The reference range was not used to interpret this result as normal/abnormal. NRBC x10^3 (test code = 6725398014) See_Comment [Automated me ssage] The system which generated this result transmitted reference range: 10*3/?L. The reference range was not used to interpret this result as normal/abnormal. GRAN MAT (NEUT) % (test code = 770-8) 57.3 % IMM GRAN % (test code = 2571489954) 0.20 % LYMPH % (test code = 736-9) 34.7 % MONO % (test code = 5905-5) 6.0 % EOS % (test code = 713-8) 1.3 % BASO % (test code = 706-2) 0.5 % GRAN MAT x10^3(ANC) (test code = 4539965108) 5.05 10*3/uL 1.88-7.09 IMM GRAN x10^3 (test code = 5224955274) 0.00-0.06 LYMPH x10^3 (test code = 731-0) 3.05 10*3/uL 1.32-3.29 MONO x10^3 (test code = 742-7) 0.53 10*3/uL 0.33-0.92 EOS x10^3 (test code = 711-2) 0.11 10*3/uL 0.03-0.39 BASO x10^3 (test code = 704-7) 0.04 10*3/uL 0.01-0.07 [facility] WITH [id number] 23:49:04* Test Item Value Reference Range Interpretation [...] 34.0 g/dL 31.6-35.1 RDW-SD (test code = 68603-1) 44.9 fL 39.0-49.9 RDW-CV (test code = 788-0) 14.0 % 12.0-15.5 PLT (test code = 777-3) 288 See_Comment [Automated messa ge] The system which generated this result transmitted reference range: 166 - 358 10*3/?L. The reference range was not used to interpret this result as normal/abnormal. MPV (test code = 88861-1) 10.0 fL 9.5-12.9 NRBC/100 WBC (test code = 0486748780) 0.0 See_Comment [Automated me ssage] The system which generated this result transmitted reference range: 0.0 - 10.0 /100 WBCs. The reference range was not used to interpret this result as normal/abnormal. NRBC x10^3 (test code = 8497197848) See_Comment [Automated me ssage] The system which generated this result transmitted reference range: 10*3/?L. The reference range was not used to interpret this result as normal/abnormal. GRAN MAT (NEUT) % (test code = 770-8) 57.3 % IMM GRAN % (test code = 1552669672) 0.20 % LYMPH % (test code = 736-9) 34.7 % MONO % (test code = 5905-5) 6.0 % EOS % (test code = 713-8) 1.3 % BASO % (test code = 706-2) 0.5 % GRAN MAT x10^3(ANC) (test code = 7008714848) 5.05 10*3/uL 1.88-7.09 IMM GRAN x10^3 (test code = 9740758542) 0.00-0.06 LYMPH x10^3 (test code = 731-0) 3.05 10*3/uL 1.32-3.29 MONO x10^3 (test code = 742-7) 0.53 10*3/uL 0.33-0.92 EOS x10^3 (test code = 711-2) 0.11 10*3/uL 0.03-0.39 BASO x10^3 (test code = 704-7) 0.04 10*3/uL 0.01-0.07 [facility] WITH [id number] 23:49:04* Test Item Value Reference Range Interpretation [...] 34.0 g/dL 31.6-35.1 RDW-SD (test code = 40848-5) 44.9 fL 39.0-49.9 RDW-CV (test code = 788-0) 14.0 % 12.0-15.5 PLT (test code = 777-3) 288 See_Comment [Automated messa ge] The system which generated this result transmitted reference range: 166 - 358 10*3/?L. The reference range was not used to interpret this result as normal/abnormal. MPV (test code = 66794-0) 10.0 fL 9.5-12.9 NRBC/100 WBC (test code = 0467512626) 0.0 See_Comment [Automated me ssage] The system which generated this result transmitted reference range: 0.0 - 10.0 /100 WBCs. The reference range was not used to interpret this result as normal/abnormal. NRBC x10^3 (test code = 1389178223) See_Comment [Automated me ssage] The system which generated this result transmitted reference range: 10*3/?L. The reference range was not used to interpret this result as normal/abnormal. GRAN MAT (NEUT) % (test code = 770-8) 57.3 % IMM GRAN % (test code = 5240137534) 0.20 % LYMPH % (test code = 736-9) 34.7 % MONO % (test code = 5905-5) 6.0 % EOS % (test code = 713-8) 1.3 % BASO % (test code = 706-2) 0.5 % GRAN MAT x10^3(ANC) (test code = 5250584957) 5.05 10*3/uL 1.88-7.09 IMM GRAN x10^3 (test code = 5492915933) 0.00-0.06 LYMPH x10^3 (test code = 731-0) 3.05 10*3/uL 1.32-3.29 MONO x10^3 (test code = 742-7) 0.53 10*3/uL 0.33-0.92 EOS x10^3 (test code = 711-2) 0.11 10*3/uL 0.03-0.39 BASO x10^3 (test code = 704-7) 0.04 10*3/uL 0.01-0.07 [facility] WITH [id number] 01:21:02* Test Item Value Reference Range Interpretation Comme nts WBC (test code = 6690-2) 11.08 See_Comment [Automated messa ge] The system which generated this result transmitted reference range: 4.30 - 11.10 10*3/?L. The reference range was not used to interpret this result as normal/abnormal. RBC (test code = 789-8) 5.11 See_Comment [Automated [employer]] The system which generated this result [...] 33.2 g/dL 31.6-35.1 RDW-SD (test code = 44316-0) 46.4 fL 39.0-49.9 RDW-CV (test code = 788-0) 14.3 % 12.0-15.5 PLT (test code = 777-3) 263 See_Comment [Automated messa ge] The system which generated this result transmitted reference range: 166 - 358 10*3/?L. The reference range was not used to interpret this result as normal/abnormal. MPV (test code = 89728-0) 10.6 fL 9.5-12.9 NRBC/100 WBC (test code = 0140909841) 0.0 See_Comment [Automated [employer] ssage] The system which generated this result transmitted reference range: 0.0 - 10.0 /100 WBCs. The reference range was not used to interpret this result as normal/abnormal. NRBC x10^3 (test code = 1444397466) See_Comment [Automated messa ge] The system which generated this result transmitted reference range: 10*3/?L. The reference range was not used to interpret this result as normal/abnormal. GRAN MAT (NEUT) % (test code = 770-8) 52.2 % IMM GRAN % (test code = 7007121793) 0.40 % LYMPH % (test code = 736-9) 39.3 % MONO % (test code = 5905-5) 6.7 % EOS % (test code = 713-8) 0.9 % BASO % (test code = 706-2) 0.5 % GRAN MAT x10^3(ANC) (test code = 4440859458) 5.80 10*3/uL 1.88-7.09 IMM GRAN x10^3 (test code = 6785756218) 0.04 10*3/uL 0.00-0.06 LYMPH x10^3 (test code = 731-0) 4.35 10*3/uL 1.32-3.29 H MONO x10^3 (test code = 742-7) 0.74 10*3/uL 0.33-0.92 EOS x10^3 (test code = 711-2) 0.10 10*3/uL 0.03-0.39 BASO x10^3 (test code = 704-7) 0.05 10*3/uL 0.01-0.07 Lab Interpretation (test code = 93755-1) [id number] 01:11:58* Test Item Value Reference Range Interpretation Comme nts TROPONIN I (test code = 4378641126) 0.006 ng/mL <=0.034 KASHIF (test code = [...] of biotin. Lab Interpretation (test code = 79265-7) Normal [facility]. METABOLIC PANEL (02529)2023-03-12 01:01:21* Test Item Value Reference Range Interpretation Comme nts NA (test code = 0095081693) 139 mmol/L 135-145 K (test code = 6578699107) 3.9 mmol/L 3.5-5.0 CL (test code = 6990601782) 103 mmol/L 98-108 CO2 TOTAL (test code = 3837431515) 26 mmol/L 23-31 AGAP (test code = 9487200664) 10 2-16 BUN (test code = 4541692167) 8 mg/dL 7-23 GLUCOSE (test code = 4096425227) 92 mg/dL 70-110 CREATININE (test code = 5587159373) 0.62 mg/dL 0.50-1.04 TOTAL BILI (test code = 4393701816) 1.0 mg/dL 0.1-1.1 CALCIUM (test code = 9809006379) 9.2 mg/dL 8.6-10.6 T PROTEIN (test code = 3984201853) 8.9 g/dL 6.3-8.2 H ALBUMIN (test code = 1713416621) 4.3 g/dL 3.5-5.0 ALK PHOS (test code = 3815324591) 102 U/L 34-122 ALTv (test code = 1742-6) 68 U/L 5-35 H AST(SGOT) (test code = 4810885075) 86 U/L 13-40 H eGFR (test code = 7177203543) 105.1 mL/min/1.73m2 KASHIF (test code = KASHIF) [...] imaging tests). Lab Interpretation (test code = 81404-8) [facility]:01:21* Test Item Value Reference Range Interpretation Comme nts LIPASE (test code = 7465715761) 108 U/L 0-220 Lab Interpretation (test cod e = 87875-9) [facility] [id number] 11:11:03* Test Item Value Reference Range Interpretation Comme nts TROPONIN I (test code = 7623723474) 0.009 ng/mL <=0.034 KASHIF (test code = [...] of biotin. Lab Interpretation (test code = 07321-3) [facility] [id number] 02:10:36* Test Item Value Reference Range Interpretation Comme nts TROPONIN I (test code = 8287528125) 0.015 ng/mL <=0.034 KASHIF (test code = [...] of biotin. Lab Interpretation (test code = 16351-4) Normal [facility] METABOLIC PANEL (16127)2023-02-03 01:27:17* Test Item Value Reference Range Interpretation Comme nts NA (test code = 6087072453) 139 mmol/L 135-145 K (test code = 5447579910) 3.8 mmol/L 3.5-5.0 CL (test code = 4473257159) 102 mmol/L 98-108 CO2 TOTAL (test code = 2914510756) 25 mmol/L 23-31 AGAP (test code = 5519947914) 12 2-16 BUN (test code = 0648401600) 15 mg/dL 7-23 GLUCOSE (test code = 3072779695) 126 mg/dL 70-110 H CREATININE (test code = 2086552593) 0.69 mg/dL 0.50-1.04 TOTAL BILI (test code = 1715235251) 1.0 mg/dL 0.1-1.1 CALCIUM (test code = 2961219438) 9.4 mg/dL 8.6-10.6 T PROTEIN (test code = 6638403277) 9.3 g/dL 6.3-8.2 H ALBUMIN (test code = 4225178916) 4.5 g/dL 3.5-5.0 ALK PHOS (test code = 0336822507) 135 U/L 34-122 H ALTv (test code = 1742-6) 112 U/L 5-35 H AST(SGOT) (test code = 1069984721) 201 U/L 13-40 H eGFR (test code = 3861031037) 92.9 mL/min/1.73m2 KASHIF (test code = KASHIF) [...] imaging tests). Lab Interpretation (test code = 73474-4) [facility] 01:27:17* Test Item Value Reference Range Interpretation Comme nts LIPASE (test code = 7539171482) 69 U/L 0-220 Lab Interpretation (test cod e = 75901-3) Normal [facility] WITH [id number] 01:17:35* Test Item Value Reference Range Interpretation Comme nts WBC (test code = 6690-2) 13.07 See_Comment H [Automated messa ge] The system [...] 32.8 g/dL 31.6-35.1 RDW-SD (test code = 25529-2) 47.7 fL 39.0-49.9 RDW-CV (test code = 788-0) 14.9 % 12.0-15.5 PLT (test code = 777-3) 326 See_Comment [Automated messa ge] The system which generated this result transmitted reference range: 166 - 358 10*3/?L. The reference range was not used to interpret this result as normal/abnormal. MPV (test code = 57691-9) 9.6 fL 9.5-12.9 NRBC/100 WBC (test code = 6918601890) 0.0 See_Comment [Automated me ssage] The system which generated this result transmitted reference range: 0.0 - 10.0 /100 WBCs. The reference range was not used to interpret this result as normal/abnormal. NRBC x10^3 (test code = 0845533081) See_Comment [Automated messa ge] The system which generated this result transmitted reference range: 10*3/?L. The reference range was not used to interpret this result as normal/abnormal. GRAN MAT (NEUT) % (test code = 770-8) 59.7 % IMM GRAN % (test code = 4990294057) 0.30 % LYMPH % (test code = 736-9) 33.4 % MONO % (test code = 5905-5) 5.3 % EOS % (test code = 713-8) 0.8 % BASO % (test code = 706-2) 0.5 % GRAN MAT x10^3(ANC) (test code = 3644879906) 7.80 10*3/uL 1.88-7.09 H IMM GRAN x10^3 (test code = 4730424469) 0.04 10*3/uL 0.00-0.06 LYMPH x10^3 (test code = 731-0) 4.37 10*3/uL 1.32-3.29 H MONO x10^3 (test code = 742-7) 0.69 10*3/uL 0.33-0.92 EOS x10^3 (test code = 711-2) 0.10 10*3/uL 0.03-0.39 BASO x10^3 (test code = 704-7) 0.07 10*3/uL 0.01-0.07 Lab Interpretation (test code = 19596-8) Abnormal [facility] [id number] 00:43:00* Test Item Value Reference Range Interpretation Comme nts POCT PREG (test code = 1605) Negative On board controls acceptable with C Line (test code = 3574) Yes POCT PREG LOT # (test code = 3579) [id number] POCT PREG TEST DATE ( test code = 3576) 07-09-2024 Lab Interpretation (test cod e = 85874-7) Normal [facility] MOLECULAR [id number] 19:47:14* Test Item Value Reference Range Interpretation Comme nts POCT Molecular FluA (test co de = 98254-9) Negative Negative POCT Molecular FluB (test co de = 11219-2) Negative Negative Lab Interpretation (test cod e = 11362-5) Normal [facility] MOLECULAR [id number] 19:47:14* Test Item Value Reference Range Interpretation Comme nts POCT Molecular FluA (test co de = 70697-1) Negative Negative POCT Molecular FluB (test co de = 02528-3) Negative Negative Lab Interpretation (test cod e = 93483-9) Normal [facility] MOLECULAR [id number] 19:47:14* Test Item Value Reference Range Interpretation Comme nts POCT Molecular FluA (test co de = 27696-5) Negative Negative POCT Molecular FluB (test co de = 29797-5) Negative Negative Lab Interpretation (test cod e = 35682-1) Normal [facility] MOLECULAR [id number] 19:47:14* Test Item Value Reference Range Interpretation Comme nts POCT Molecular FluA (test co de = 81139-1) Negative Negative POCT Molecular FluB (test co de = 40370-2) Negative Negative Lab Interpretation (test cod e = 31340-0) Normal [facility] History and Physical Notes Date/Time Note Provider Source 2024-08-12 08:42:48 Endoscopy H & P Age: [age] year old Sex: female ASA Class: III Indication: unintentional weight loss and GERD Red Slater is a 44 year old female with history of HTN, SANYA, GERD who presents with unintentional weight loss, GERD, diarrhea, and epigastric abdominal pain Family history of Colon Cancer: no Antiplatelets/Anticoagulants: none Previous Endoscopy: EGD: 04/25/2023 - Normal proximal esophagus, mid esophagus and distal esophagus. - Z-line regular, 37 cm from the incisors. - 2 cm hiatal hernia. - Normal cardia, gastric fundus, gastric body, incisura, antrum and pylorus. Biopsied. - Normal duodenal bulb and second portion of the duodenum A. STOMACH, BIOPSY: - GASTRIC MUCOSA WITH NO PATHOLOGIC CHANGES - NO INTESTINAL METAPLASIA IDENTIFIED - NO H PYLORI ORGANISMS IDENTIFIED Histories: Past Medical History: Diagnosis Date Abnormal Pap smear 2002 unknown result Abnormal uterine bleeding Anxiety 07/02/2024 Blood transfusion, without reported diagnosis 1986 during surgery HTN (hypertension) Morbid obesity with BMI of 50.0-59.9, adult PID (pelvic inflammatory disease) Sneddon-Gonzalez disease Family History Problem Relation Age of Onset Diabetes Mother Heart Father Diabetes Father Hypertension Father Other - see comments Sister GSW's and Overdose No Significant Medical Problems Brother Breast Cancer NoFHx Past Surgical History: Procedure Laterality Date SECTION N/A 03/27/2021 Surgeon: Herminio Isaac MD; Location: Labor and Delivery OR Location-[facility] DRAINAGE LYMPH NODE,SIMPLE 1985 ESOPHAGOGASTRODUODENOSCOPY N/A 04/25/2023 Surgeon: Marcos Rodriguez MD; Location: ENDOSCOPY ([facility]) OR LOCATION LAPAROSCOPIC ROBOTIC ASSISTED CHOLECYSTECTOMY N/A 04/29/2023 Surgeon: Heidi Mccullough MD; Location: [facility] OR LOCATION TUBAL LIGATION N/A 03/27/2021 Surgeon: Herminio Isaac MD; Location: Labor and Delivery OR Location-[facility] No current facility-administered medications for this encounter. Current Outpatient Medications Medication Sig Dispense Refill hydroCHLOROthiazide 25 mg tablet Take 1 tablet by mouth in the morning. 90 tablet 2 loperamide (IMODIUM A-D) 2 mg capsule Take 1 capsule by mouth 3 (three) times daily as needed for Diarrhea. 21 capsule 0 meclizine 25 mg tablet Take 1 tablet by mouth 3 (three) times daily as needed for Dizziness or Nausea. 30 tablet 2 ondansetron 4 mg disintegrating tablet Take 1 tablet by mouth every 8 (eight) hours as needed for Nausea and Vomiting (N/V). 12 tablet 0 triamcinolone acetonide 0.1 % cream Apply to area(s) 2 (two) times daily. 30 g 1 lidocaine 5 % ointment Apply to area(s) 2 (two) times daily. 50 g 2 pantoprazole 40 mg EC tablet Take 1 tablet by mouth in the morning and 1 tablet in the evening. 180 tablet 1 No Known Allergies Social History Socioeconomic History Marital status: Tobacco Use Smoking status: Former Passive exposure: Past Smokeless tobacco: Former Quit date: 12/27/2011 Substance and Sexual Activity Alcohol use: Not Currently Drug use: Not Currently Comment: hx of marijuana and cocaine abuse-clean x 3 years Sexual activity: Yes Partners: Male control/protection: None Comment: last had sex in 2010 Social History Narrative Social Documentation 04/24/23: Patient was seen by the Hospital to Home Consult Team, below is a summary of the social history documentation from today's visit: Home and Living Situation Currently living in a house that is owned by her 's Aunt. However, due to financial reasons she will need to move out of the house within about 6 months. Has a 20 year old son who just started working, as well as a 2 year old son that live in the house as well. lived with her in the house prior to incarceration. Recently having difficulty paying utility bills, being without water for some time which caused CPS to get involved. Currently has overdue bills for water and electricity. Has exhausted community utility assistance options in [facility]. Relationship Status , recently released Transportation Does not own a vehicle. Her son walks to the grocery store and to work for her. Has attempted using medicare rides with difficulty. Occupation Not currently working due to back pain secondary to degenerative disc disease. Seeking work that can accommodate her, but voices difficulty finding jobs that will accept her due to her criminal record and limited mobility. Her son is currently providing financially. Social Network & Interests Mother lives locally and is the main person that she goes to for help. Lacks other social support. Education & Health Literacy Highest level of education is GED. Able to complete medical forms and applications without assistance. Outpatient Primary Care Sees Dr. Doe Garcia in [place] for her primary care. Social Determinants of Health Financial Resource Strain: Low Risk (04/22/2023) Overall Financial Resource Strain (CARDIA) Difficulty of Paying Living Expenses: Not hard at all Food Insecurity: No Food Insecurity (04/22/2023) Hunger Vital Sign Worried About Running Out of Food in the Last Year: Never true Ran Out of Food in the Last Year: Never true Transportation Needs: No Transportation Needs (04/22/2023) PRAPARE - Transportation Lack of Transportation (Medical): No Lack of Transportation (Non-Medical): No Physical Activity: Inactive (04/22/2023) Exercise Vital Sign Days of Exercise per Week: 0 days Minutes of Exercise per Session: 0 min Social Connections: Unknown (04/22/2023) Social Connection and Isolation Panel [NHANES] Frequency of Communication with Friends and Family: More than three times a week Marital Status: Housing Stability: Low Risk (04/22/2023) Housing Stability Vital Sign Unable to Pay for Housing in the Last Year: No Number of Places Lived in the Last Year: 2 Unstable Housing in the Last Year: No Physical Exam: Mental Status: alert, oriented x3 Cardiovascular: regular rate Chest: unlabored on room air Abdomen: soft, non-distended, non-tender, no masses Impression and Plan: Red Slater is a 44 year old female with PMH as above who presents for unintentional weight loss. Will proceed with EGD. Benefits, risks, alternatives, and likelihood of achieving patient's goals of care discussed. Risks discussed including but not limited to aspiration, infection, bleeding, injury to the GI tract or surrounding vessels/structures, perforation, missed polyps/lesions, failure to obtain a diagnosis, failure to complete the procedure, cardiovascular complications such as MO, stroke, arrhythmia, and . Informed consent obtained/verified. Education provided to the patient about the procedure. Vivian Nair MD PGY 5 Gastroenterology and Hepatology BROTHER Associated attestation - Matilda Mcgregor MD - 08/12/2024 8:55 AM LAY BROTHER I personally interviewed/examined the patient on 08/12/[address] Nair's resident/fellow note as written . I actively participated in the decision-making process. Please see the resident's note for additional details. [facility] 2023-02-25 23:16:40 Formatting of this n ote is different from the original. [facility] Hospitalist Admission H&P Date of Service: 02/25/2023 [...] Isaac MD; Location: Labor and Delivery OR Location-[facility] DRAINAGE LYMPH NODE,SIMPLE 1985 TUBAL LIGATION N/A 03/27/2021 Surgeon: Herminio Isaac MD; Location: Labor and Delivery OR Location-[facility] ALLERGIES No Known Allergies MEDICATIONS Current home [...] prior to CTA head/neck. History obtained from [facility]: "Pt was making lunch approx 1400 when she started to feel dizzy, diaphoretic with chest pressure. [place] like she was going to pass out [...] The superior cerebellar arteries are patent. Both BODY SHOP MECHANIC are widely patent. No sizable P-comm is [...] prior to CTA head/neck. History obtained from [facility]: "Pt was making lunch approx 1400 when she started to feel dizzy, diaphoretic with chest pressure. [place] like she was going to pass out [...] The superior cerebellar arteries are patent. Both BODY SHOP MECHANIC are widely patent. No sizable P-comm is [...] user?: no Patient will require observation [place] [employer]PER[employer]OR was verified during stay Roman Mena MD [facility] Notes Date/Time Note Provider Source 2025-03-02 11:46:43 Change not appropriate. Closing encounter. Cheri Romero RN [facility] 2025-02-28 16:02:38 Images from the original note were not included. Talia Constantino MA [facility] 2025-01-26 08:45:24 Left Voicemail to help schedule an appt with Physical Thearpy Colette Gomez [facility] 2025-01-25 16:21:45 Spoke with patient and explained the order is in and informed her it was placed on 10/25/2024 and shows to still be active. Patient reports she just spoke with someone and they can only see the one that was placed on 01/11/25. I explained I can have our PSS contact her tomorrow about scheduling with PT. Patient reports she lives in [place] and was told it would be done in [place]. I explained I am not sure if this particular visit can be done in [place] or not but our PSS would have better information and I can have her call her tomorrow. Patient verbalized understanding. Azul Byers RN [facility] 2025-01-25 15:44:34 Patient called in needing a referral to physical therapy so she can have the weight loss surgery. Can someone assist with this? Maddy Steele [facility] 2025-01-18 13:41:39 Spoke with [facility], they confirmed that they received Dr. Bush's notes. Unfortunately, they are not able to adjust patient's machine remotely because patient decline the modem. Contacted patient and advised her to contact [facility]. Settings can be adjusted in person with them or she could consider purchasing the modem. Rosey Leung RN [facility] 2025-01-18 13:18:42 Red Slater is a 45 year old female\\ Pt calling in stating the clinic did not receive her DME order. Please refax May Castrejon [facility] 2025-01-14 10:23:11 Faxed Last OVN and demographics to [facility]- for pressure change. Pressure change option via parachute not available. Scanned into chart after. Julissa Kurtz MA [facility] 2025-01-13 14:37:58 Hi Anne, There is no referral as the nutrition referral is sent out. I can place a referral, but the documentation from them is usually uploaded in media. They typically do have to pay for these visits though when they are outside [facility]. Let me know, Heidi [facility] 2025-01-12 15:37:36 Dr. Mccullough if you can please place the nutrition referral so that insurance may work on approving these visits please. Anne Zafar [facility] 2025-01-12 14:58:33 Pt states ins needs for us to contact them first to begin sending info./documentation first Reminded pt 24-48hr [phone] Elisa Carreon [facility] 2025-01-12 14:52:09 Patient is calling stating dynamo repairer visit are not covered and is need a referral. Please advise. Maddy Steele [facility] 2025-01-03 13:03:00 Images from the original note were not included. Last OV: 10/12/2024 with Sabino Simmons Last Refill:10/06/2024 prescribed by Sabino Simmons Last Labs Pertaining to Med: N/A Future Appt: Future Appointments Provider Department Dept Phone 01/06/2025 1:00 PM Mya Cota PA-C [facility] [phone] 01/07/2025 2:30 PM Sabino Simmons NP [facility] [phone] 01/07/2025 4:00 PM Jen Bush DO [facility] Pulmonary & Sleep Medicine, [facility] [phone] 01/25/2025 8:00 AM Gloria Heck MD [facility] [phone] 01/25/2025 8:45 AM Sanket Mcpherson MD [facility] Dermatology, [facility] [place] [phone] 02/14/2025 10:30 AM Heidi Mccullough MD [facility] Routed to provider for review. Unable to refill per ambulatory refill guidelines. Off-Protocol Kehoma1801/03/2025 12:01 PM Protocol Details Medication not assigned to a protocol, forward to provider. Valid encounter within last 12 months Noelle Cortes RN [facility] 2024-12-10 14:53:54 Images from the original note were not included. CPAP orders faxed to [facility]. and confirmation was received. Azul Byers RN [facility] 2024-11-25 16:16:46 Called pt, confirmed appt on 11/29/24 Tiffanie Kyle MA 11/25/2024 4:17 PM Tiffanie Kyle MA [facility] 2024-11-25 15:43:23 Red Slater is a 44 year old female Pt calling stating she missed a call from the clinic regarding her appt on Friday. She stated she has had the pain for about 5 years. Please advise [phone] (home) [phone] (work) Eloy Rivas [facility] 2024-11-25 15:34:56 Pt called requesting the results from her sleep lab that was done on 11/04. Please contact her @ [phone] Lesvia Henry [facility] 2024-10-19 16:30:00 Images from the original note were not included. Venipuncture collection performed by clean technique on the left anticubitus. Total of 1 attempts were made. Slight pressure and a bandage/dressing were applied to the site(s). The patient experienced no complications. The following specimens were processed according to instructions and sent to [facility] laboratories LT BLUE Lt Green SST RED LAV 1 PPT DK GREEN (L) 1 DK GREEN (S)/// Fibrosure set BLUE,SST & LAV NGO DK BLUE (K2) DK BLUE (S) ACD RST 2 BLOOD CULTURE SET BLOOD CULTURE (AFB AND FUNGUS ) VERIFYNOW Monogram TYPENEX (LAV TOP) ARM BAND ON PATIENT Z plasma preservative tube (call lab for tube)ARUP Vasoactive Intestinal Peptide (call lab for tube)ARUP FEDEX ( NIPT) Thrombotic Risk Reflex Panel URINE URINE CULTURE APTIMA URINE STOOL Katy Capps [facility] 2024-08-12 16:32:35 Called to inform patient of results and recommendations as detailed below. Patient verbalized understanding, encouraged to follow up with Dr. Heck as needed for cardiac related symptoms. BROTHER Fauzia Cruz RN [facility] 2024-08-12 16:19:17 Red Slater is a 44 year old female returning call. [phone] BROTHER Whit Carcamo [facility] 2024-08-12 15:43:53 Images from the original note were not included. Attempted to contact patient with results/recommendations. LVM for patient to return call to [phone]. Gloria Heck MD P Cardiology Nurse Holter showed very few premature beats. This finding is benign. Overall the holter didn't show any remarkable abnormality. This is reassuring. [facility] 2024-08-10 21:09:34 Pt discharged with diagnosis of diarrhea, dizziness, nausea, and bilateral ovarian cysts. Printed and verbal instructions reviewed with and given to pt. Prescriptions given x 2. Pt verbalized understanding of teaching, medications, and recommended follow-up. Denies questions or concerns at this time. Pt ambulatory at discharge. Appears in no apparent distress. No ataxia noted. BROTHER Jeannine Gunter RN [facility] 2024-08-10 21:03:05 Pt requested to not have all fluid infuse as she wants to go home. NA Kyle RN [facility] 2024-08-10 19:22:59 Pt requesting door/curtain be open due to small room. [facility] 2024-08-10 15:13:41 Intermittent dizziness, nausea/vomiting and diarrhea for the past month. Reports that it is "black runny diarrhea". No cough/congestion, chest pain, shortness of breath. Denies belly pain and dysuria. Patient also reports that she has a rash on her belly. HX: HTN, "autoimmune disease". BROTHER Beverly Membreno RN [facility] 2024-08-06 13:47:43 Monitor Dropped off. Will download and transmit now to heart station. NA Gunn MA [facility] 2024-08-06 11:15:58 Msg left on vm. Return of holter was due Friday. Anyone can drop it off. This is to avoid overdue charges. Pt signed notification of this. Will elisabeth Mgr. Placed on thur 1.2.25 Return was due 625. BROTHER [facility] 2024-08-02 12:56:28 Patient contacted for pre op phone call. Patient given procedural prep instructions (EGD), NPO status/timing for procedure, medication instructions : instructed to hold HCTZ the morning of procedure. Denies anticoagulant therapy, or any other diuretics, diabetic or weight loss medications. Patient verbalized understanding of instructions. Discussed with patient they will need a responsible adult, 18 years old or older, to provide transportation on the day of procedure. Patient also informed that they will be contacted the day before their procedure with arrival time. Pre op call complete. Prep and medication instructions sent via [employer]. NA Bender RN [facility] 2024-07-15 09:40:08 Images from the original note were not included. Attempted to contact pt with physician review from recent echo. LVM Sent pt [employer] message with review. Gloria Heck MD P Cardiology Nurse Echo showed normal heart size and acceptable systolic function. This is reassuring. NA Castro RN [facility] 2024-06-18 16:15:00 Images from the original note were not included. Venipuncture collection performed by clean technique on the right anticubitus. Total of 1 attempts were made. Slight pressure and a bandage/dressing were applied to the site(s). The patient experienced no complications. The following specimens were processed according to instructions and sent to [facility] laboratories per lab order on 06/18/2024 : LT BLUE SST 1 RED LAV 1 PPT DK GREEN (LiHep) DK GREEN (SodH) NGO DK BLUE (K2) DK BLUE (S) ACD Blood Culture NIPT/NTD [facility] 2024-06-16 10:55:47 Red Slater is a 44 year old female Pt called to request a refill. [facility] 2024-05-26 15:38:49 The patient notes that she is still having problems despite taking the PPI twice daily. The patient notes she is also actively losing weight. When seen in clinic her weight was 341lbs and currently the patient notes she is 328lbs. Lets plan for EGD. Niecy Kang M.D. Department of Gastroenterology and Hepatology, PGY-4 [facility] 2024-05-17 12:24:24 Images from the original note [...] Simmons NP Last refill: 04/14/2024 Rx #: [id number] Cardiovascular: Misc. Diuretics Blabkm5705/15/2024 09:09 AM Protocol Details Valid encounter within last 12 months K in normal range and within 180 days Na in normal range and within 180 days Cr in normal range and within 180 days To be filled at: [facility] - [place], [place] - [address] Last Refilled: Disp Refills Start End JACI hydroCHLOROthiazide 25 mg tablet 30 tablet 2 02/18/2024 -- No Sig: Take 1 tablet by mouth in the morning. Sent to pharmacy as: hydroCHLOROthiazide 25 mg tablet (ESIDRIX) Class: eRX Route: Oral Order: [id number] Date/Time Signed: 02/18/2024 13:51 E-Prescribing Status: Receipt confirmed by pharmacy (02/18/2024 1:51 PM CDT) Recent Visits Date Type Provider Dept 04/23/24 Office Visit Sabino Simmons NP [facility] Family Medicine 02/18/24 Office Visit Sabino Simmons NP [facility] Family Medicine 11/26/23 Office Visit Sabino Simmons NP [facility] Medicine 10/10/23 Office Visit Nabila Pedro MD [facility] -Pcp Showing recent visits within past 540 days with a meds authorizing provider and meeting all other requirements Future Appointments Date Type Provider Dept 06/07/24 Appoint[address] Sab[address] Simmons NP [facility] Family Medicine Showing future appointments within next 150 days with a meds authorizing provider and meeting all other requirements Matthew Jaquez RN [facility] 2024-05-04 11:00:00 Images from the original note were not included. Venipuncture collection performed by clean technique on the left anticubitus. Total of 1 attempts were made. Slight pressure and a bandage/dressing were applied to the site(s). The patient experienced no complications. The following specimens were processed according to instructions and sent to [facility] laboratories LT BLUE 1 Lt Green SST [...] URINE URINE CULTURE APTIMA URINE STOOL T [facility] 2024-04-29 14:42:08 Forwarding to provider T [facility] 2024-04-26 08:31:27 Red Slater is a 44 year old female Patient called to schedule with PGY for: N83.209 (ICD-10-CM) - Cyst of ovary, unspecified laterality R10.2 (ICD-10-CM) - Pelvic pain Procedures: [id number] - CONSULT/REFERRAL RN L AND D Start: Apr 23, 2024 Please contact pt at [phone] (home) Denise Neil [facility] 2024-04-21 07:40:58 Pt given printed and verbal [...] in no apparent distress. Farida Valdez RN [facility] 2024-04-21 05:05:54 Spoke with nurse at [facility] who stated patient has been there multiple [...] or imaging today, only pain control. T [facility] 2024-04-21 04:46:44 Pt arrived via EMS for abdominal pain. Pt was picked up from [facility] parking lot after being seen and dc'd and then criminally trespassed from [facility]. Pt reports telling them she had a ovarian cyst but they only gave her [place] then made her leave. Pt received a prescription for tramadol but ripped it in half. [facility] Lianet Cabrera RN [facility] 2024-04-16 00:55:00 Registration at bedside T Shy Machado RN [facility] 2024-04-16 00:45:00 Pt medicated as ordered. Vitals rechecked. Educated on interventions. DC instructions reviewed with pt by this RN. Pt verbalized understanding. No reaction to medications given during admission. AOx4, rr even and unlabore on ra, skin warm and dry. DC hold d/t pt wanting to finish IVF. [facility] 2024-04-16 00:38:49 [place] tray provided by for po challenge. T [facility] 2024-04-16 00:28:11 Pt refusing toradol. Reports she thinks it "messes with my stomach." Requesting tylenol. Dr Mcduffie notified. At bedside re-assessing pt [facility] 2024-04-16 00:18:17 Pt back from [place]. T [facility] 2024-04-15 22:05:16 Pt remains in [place]. Daksha Crump RN [facility] 2024-04-15 21:32:23 Patient to US via . Meredith Solis RN [facility] 2024-04-15 20:32:55 Patient returned from imaging, patient ambulatory to and from the restroom with steady gait. Urine sample collected. [facility] 2024-04-15 19:05:00 Received report from Tierra MCKAY. Patient currently in ED green chair accompanied by family member. T [facility] 2024-04-15 18:44:32 Red Slater is a 44 year old female Patient arrives via personal means with complaint of abdominal pain, N/V. Pt was at other ED but did get any relief. Patient is alert and oriented times X 4, even and unlabored respirations visualized. Green pool due to saturation. Tierra Grover RN [facility] 2024-04-13 19:00:00 Pt given printed and [...] in no apparent distress, Shruthi Thorne RN [facility] 2024-04-13 14:10:40 Pt states she woke up this morning having abdominal pain and it got worse throughout the day. Ann Marie Osorio RN [facility] 2024-04-13 10:18:36 Images from the original note were not included. Scanned in folder and placed in provider basket for review. Destinee Henley [facility] 2024-03-23 14:04:39 Spoke with Anabelle at [facility] pharmacy and verbal order was given. No further action needed. Julito Holder LVN [facility] 2024-03-23 13:40:07 Fine to call in verbal ok [facility] 2024-03-23 13:21:21 Images from the original note were not included. Received fax from [facility], Dr. Thomas needs to sign and form needs to be faxed back. Please see below: Romina Vazquez [facility] 2024-02-26 16:25:00 Regarding: APPTESC Rheum ----- [...] getting worse APPT ESC Tala Elise RN [facility] 2024-02-26 16:25:00 Nurse's Note: 4:59 PM [...] present > 3 days Protocols used: Shoulder Obca-SMYBZ-OX Tala Elise RN 02/26/2024 5:14 PM [facility] 2024-02-26 16:25:00 FWD to PSS, for appointment. Referral to Rheumatology made 02/19/2024? Fauzia Ch RN [facility] 2024-02-19 13:43:20 Patient is scheduled for testing. Matthew Feranndez [facility] 2024-02-19 12:06:51 Red Slater is a 44 year old female calling to schedule vascular lab US orders. Please assist [phone] (home) Whit Elise [facility] 2024-02-18 15:48:24 Forwarding to provider for review. Matthew Jaquez RN [facility] 2024-02-18 15:38:25 Red Slater is a 44 year old female Calling to see if dr is still going to send medication for sinus and pain today. Pt says the where discussed in appt but not sent Jessica Alvarez [facility] 2024-01-28 11:29:37 Forwarded to provider Rosa Castrejon MA [facility] 2024-01-28 11:17:47 Red Slater is a 44 year old female Pt was seen at the ER last night and prescribed esomeprazole 40 mg. Her insurance will not cover it and she is asking if Sabino Simmons could prescribe an alternative since the ER cannot or suggest an otc. [facility] [address] [place] [id number] Kaya Gonzalez [facility] 2024-01-27 21:50:44 Discussed and reviewed discharge instructions, follow up care with PCP, and prescription medications with patient. Pt verbalizes understanding without questions. Pt assisted to ER lobby with family. Discharged ambulatory, aaox4, breathing even/unlabored, in no acute distress. Shruthi Tucker RN [facility] 2024-01-27 21:20:47 Report received from Malia MCKAY. Mahesh Polanco RN [facility] 2024-01-27 20:04:57 Pt independently ambulatory too rr with UA sample collection cup Malia Mcdonough RN [facility] 2024-01-27 19:36:55 Pt transported to room via stretcher [facility] 2024-01-27 19:23:11 Pt transported via stretcher to CT [facility] 2024-01-27 18:08:00 Red Slater is a [...] established, continuous monitor connected, awaiting further updates. [facility] 2024-01-27 16:14:24 Red Slater is a 44 year old female presents to ED c/o abdominal pain x 4 days reports worsened with oral intake. PMH autoimmune disease. Pt is aox4 with gcs 15 skin warm and dry resp even and unlabored. NAD noted. Pt placed in green pool due to ED saturation. Yanna Alegria RN [facility] 2024-01-27 14:45:49 [facility] Castrejon Rosa Castrejon MA [facility] 2024-01-26 09:24:13 Form placed in provider folder for review. Jailyn De La O MA [facility] 2024-01-26 09:14:17 Images from the original note were not included. Nida Gutierrez [facility] 2023-11-28 10:14:23 VIT D 25OH (ng/mL) Date Value 11/26/2023 17 (L) [facility] 2023-11-26 14:15:00 Images from the original note were not included. Venipuncture collection performed by clean technique on the left anticubitus. Total of 1 attempts were made. Slight pressure and a bandage/dressing were applied to the site(s). The patient experienced no complications. The following specimens were processed according to instructions and sent to [facility] laboratories per lab order on 11/26/2023 : LT BLUE SST 4 RED LAV 1 PPT DK GREEN (LiHep) DK GREEN (SodH) NGO DK BLUE (K2) DK BLUE (S) ACD Blood Culture NIPT/NTD [facility] 2023-10-10 15:45:00 Images from the original note were not included. Venipuncture collection performed by clean technique on the right anticubitus. Total of 1 attempts were made. Slight pressure and a bandage/dressing were applied to the site(s). The patient experienced no complications. The following specimens were processed according to instructions and sent to [facility] laboratories per lab order on 10/10/2023 : LT BLUE SST 1 RED LAV 1 PPT DK GREEN (LiHep) LT GREEN (LiHep) NGO DK BLUE (K2) DK BLUE (S) ACD Blood Culture NIPT Urine Urine Culture [facility] 2023-10-03 18:40:11 Pt discharged with diagnosis of muscle strain of chest wall. Printed and verbal instructions reviewed with and given to patient. No new prescriptions given for this visit. Pt verbalized understanding of teaching and recommended follow-up. Denies questions or concerns at this time. Pt ambulatory at discharge. Appears in no apparent distress. No ataxia noted. Waiting in lobby for transportation home. NA Arauz RN [facility] 2023-10-03 15:05:23 [facility] states: "Pt started having chest pain 1 hour ago. She was doing laundry. She did have some nausea on and off. Her pain is in her left chest. I gave 324 mg apirin and 1 NTG. She has a history of HTN and has been out of her meds" NA Vital RN [facility] 2023-10-03 15:00:00 [facility] Emergency Department Note Patient Name: Red Slater Date of : 1980 43 year old female Treatment Room: Room/bed info not found Primary Care Physician: Clarice Chauhan Patient Escorted by: Self [9] Mode of Arrival: EMS - [facility] ([facility]) [43] EMS Treatment Prior to ED Arrival: OPERATIONS INTELLIGENCE treatment: Other (comment) OPERATIONS INTELLIGENCE treatment comments: see triage note Travel and [...] Isaac MD; Location: Labor and Delivery OR Location-[facility] DRAINAGE LYMPH NODE,SIMPLE 1985 ESOPHAGOGASTRODUODENOSCOPY N/A 04/25/2023 Surgeon: Marcos Rodriguez MD; Location: ENDOSCOPY ([facility]) OR LOCATION LAPAROSCOPIC ROBOTIC ASSISTED CHOLECYSTECTOMY N/A 04/29/2023 Surgeon: Heidi Mccullough MD; Location: [facility] OR LOCATION TUBAL LIGATION N/A 03/27/2021 Surgeon: Herminio Isaac MD; Location: Labor and Delivery OR Location-[facility] Review of Systems: Review of Systems Constitutional: [...] CHEST 1 VW Final Result Ordering Physician: KINSEY PARKER Clinical Indication: cp Additional Clinical Information: Technical [...] User Comments 10/03/23 1505 Medical Screening Begins KINSEY PARKER MD -- 10/03/23 1505 First Provider Evaluation KINSEY PARKER MD -- ED COURSE Diagnosis/Impression as of [...] medications on file Follow-up: Electronically signed by: Kinsey Parker DO 10/03/231826 [facility] 2023-09-30 14:47:48 Called patient, no answer, left voicemail asking patient to call back to clinic, left clinic phone#. BROTHER Jailyn Xiong LVN [facility] 2023-09-29 15:45:21 Red Slater is a 43 year old female Patient is calling requesting a sooner appt and states she has a flare up. Please advise. [phone] (home) Future Appointments In 1 month Sanket Mcpherson MD [facility], [facility] BROTHER Nicki Melgar [facility] 2023-04-08 19:32:52 Formatting of this n ote might be different from the original. Pt dc'd home ambulatory with follow up instructions. Pt v/u of dc instructions. Lianet Cabrera RN [facility] 2023-04-08 16:32:31 Formatting of this n ote might be different from the original. Right leg pain for a "few weeks". Sometimes the leg gets numb. Has appt on for symptoms. Rachel Sue RN [facility] 2023-03-14 17:01:16 Formatting of this n ote might be different from the original. Pt discharged home. Given all education and information regarding s/s of worsening condition. Gave info regarding result follow up on my chart and importance of pcp follow up. Pt verbalized understanding. Alert and ambulatory to lobby. Awaiting ride. [facility] 2023-03-14 16:54:36 Formatting of this n ote might be different from the original. Patient to ed via pov. Alert and ambulatory. Vss. C/o runny nose and "feeling feverish" onset yesterday. Denies vomiting. Jacqui Campbell RN [facility] - [facility] 2023-03-14 16:53:00 Formatting of this n ote is different from the original. [facility] Emergency Department Note Patient Name: Red Slater Date of : 1980 43 year old female Treatment [facility] Primary Care Physician: Clarice Chauhan Patient Escorted by: Self [9] Mode [...] Isaac MD; Location: Labor and Delivery OR Location-[facility] DRAINAGE LYMPH NODE,SIMPLE 1985 TUBAL LIGATION N/A 03/27/2021 Surgeon: Herminio Isaac MD; Location: Labor and Delivery OR Location-[facility] Review of Systems: Review of Systems Constitutional: [...] on file. ED COURSE Diagnosis/Impression as of 03/14/231701 Upper respiratory tract infection, unspecified type Procedures: [...] the patient for COVID. Recommend she is biik-izc-licjdyz cough and cold medications as needed for her symptoms. She remained stable here in the ER and is okay for discharge home with PCP follow-up. She can follow-up with the results of the COVID test on the [employer] britt. Problems Addressed: Upper respiratory tract infection, [...] Electronically signed by: Kassy Gutierrez DO 03/14/231701 [facility] 2023-03-14 08:28:10 Formatting of this n ote might be different from the original. I called pt to ask about the pantoprazole suspension ordered. No answer, I left VM with my call back number. [facility] 2023-03-13 18:04:20 Formatting of this n ote might be different from the original. Red Slater is a 43 year old female, Pri[facility] with [employer] calling regarding rx for pantoprazole. Has a quantity of 1 listed. Please send updated rx. [facility] [address] [place], [place] [address] [address] [address] Crystal Mujica [facility] 2023-03-13 11:00:00 Addended by: BOAZ GUERRERO on: 03/13/2023 04:23 PM Modules accepted: Level of Service [facility] 2023-03-11 20:58:50 Formatting of this n [...] in no apparent distress, Mary Zazueta RN [facility] 2023-03-11 17:40:35 Formatting of this n ote might be different from the original. Patient to ED for abdominal pain x 2 weeks. Concerned because she can't eat and lost her prescriptions for UTI she has. Lea Johnson RN [facility] 2023-02-26 19:15:50 Summary: RN DC note [...] assistance. Patient being wheeled off unit by [facility]. Angela Omalley RN [facility] 2023-02-26 16:23:29 Formatting of this n [...] Angela Omalley RN Outcome: Progressing as expected [facility] 2023-02-26 14:46:53 Formatting of this n ote [...] new skin breakdown Outcome: Progressing as expected [facility] 2023-02-26 01:37:41 Formatting of this n ote [...] Outcome: Progressing as expected Ariella Hope RN [facility] 2023-02-25 18:58:38 Formatting of this n ote might be different from the original. Nurse Report Report given to Ariella MCKAY, Chief complaint, assessment findings, infusion verify and orders reviewed. Maria C Tejeda RN T Maria C Tejeda RN [facility] 2023-02-25 17:15:00 Formatting of this n ote might be different from the original. Ambulated to bathroom without distress, pt current on menses [facility] 2023-02-25 15:54:00 Formatting of this n ote might be different from the original. Return to room on traffic monitor specialist with RN, pt with no neuro deficits, saldana w from, speech clear [facility] 2023-02-25 15:35:00 Formatting of this n ote might be different from the original. To CT on traffic monitor specialist RN with [facility] 2023-02-25 15:15:00 Formatting of this n ote might be different from the original. After Dr leaving room pt moved her leg stated she has had issues for a couple months with a heavy leg, states basically she just lays in bed all day. [facility] 2023-02-25 15:09:00 Formatting of this n ote might be different from the original. While Dr. Meyers in room assessing pt stating she could not move her left leg, Dr decided to call code stroke, [facility] 2023-02-25 14:40:51 Formatting of this n ote might be different from the original. Pt was making lunch approx 1400 when she started to feel dizzy, diaphoretic with chest pressure. [place] like she was going to pass out and started hyperventilating. [place] like her left side was tingly. Has GI appt on . States she hasn't been able to eat right for a month and it causes her stomach to hurt. Rachel Sue RN [facility] 2023-02-25 14:31:00 Formatting of this n ote is different from the original. [facility] Emergency Department Note Patient Name: Red Slater Date of : 1980 43 year old female Treatment Room: OK5/OK5 Primary Care Physician: Clarice Chauhan Patient Escorted by: Self [9] Mode of Arrival: EMS - [facility] [47] EMS Treatment Prior to ED Arrival: [...] Isaac MD; Location: Labor and Delivery OR [facility] DRAINAGE LYMPH NODE,SIMPLE 1985 TUBAL LIGATION N/A 03/27/2021 Surgeon: Herminio Isaac MD; Location: Labor and Delivery OR Location[facility] Review of Systems: Review of Systems Constitutional: [...] prior to CTA head/neck. History obtained from [facility]: "Pt was making lunch approx 1400 when she started to feel dizzy, diaphoretic with chest pressure. [place] like she was going to pass out [...] The superior cerebellar arteries are patent. Both [employer] are widely patent. No sizable P-comm is [...] prior to CTA head/neck. History obtained from [facility]: "Pt was making lunch approx 1400 when she started to feel dizzy, diaphoretic with chest pressure. [place] like she was going to pass out [...] The superior cerebellar arteries are patent. Both [employer] are widely patent. No sizable P-comm is [...] GLUCOSE(AGE >30DAYS) URINALYSIS TROPONIN I LIPID PANEL (49150)(TOTAL CHOLESTEROL, TRIGLYCERIDES, HDL) THYROID STIMULATING HORMONE EKG: [...] this a planned re-admission?: No Treatment Team: [facility] [[id number]] Is this patient COVID positive or a [...] Electronically signed by: Bairon Meyers MD 02/25/23 600 [facility]
[2025-03-08 14:06] LABS: Absolute Lymphocytes (CBC) 3.8 K/uL (0.7-4.9); Hematocrit 41.1 % (36.0-45.0); Hemoglobin 13.4 g/dL (12.0-15.0); MCH 25.7 pg (27.0-35.0); MCHC 32.5 g/dL (32.0-36.0); MCV 79.2 fL (80-100); MPV 7.5 fL (7.6-11.3); Nucleated RBC Absolute Count 0.0 (0-0); Nucleated Red Blood Cells % 0.0 % (0-0); RBC Red Blood Cell Count 5.19 M/uL (3.86-4.86); White Blood Count 15.10 thou/uL (4.3-10.9)
[2025-03-08 14:16] LABS: PT Prothrombin Time 12.2 SECONDS (10-13.0); Protime INR 1.08
[2025-03-08 14:24] LABS: Influenza A Ag Negative; Influenza B Ag Negative; SARS-CoV-2 Antigen Rapid Res Negative (Negative)
[2025-03-08 14:57] LABS: ALT/SGPT 68 U/L (13-56); AST/SGOT 62 U/L (15-37); Albumin 3.0 g/dL (3.4-5.0); Albumin/Globulin Ratio 0.6 (1.1-1.8); Alkaline Phosphatase 116 U/L (45-117); Anion Gap 5.7 mEq/L (5.0-15.0); BUN Blood Urea Nitrogen 19 mg/dL (7-18); Globulin 5.4 g/dL (2.3-3.5); Glucose Level 101 mg/dL (74-106); Magnesium 2.0 mg/dL (1.6-2.4); NT PRO-BNP 34 pg/mL (<125); Potassium 3.7 mEq/L (3.5-5.1); Troponin High Sensitivity 4.0 pg/mL (<58.9)
[2025-03-08 15:05] LABS: Bilirubin Indirect, Calculated 0.3 mg/dL (0.2-0.8)
--- NOTE | 2025-03-08 16:00 | RAD REPORT ---
EXAMINATION: ONE VIEW CHEST XR CLINICAL INDICATION: Female, 45 years old.,DYSPNEA TECHNIQUE: Frontal chest projection is submitted. Examination is limited by patient positioning and t echnique. COMPARISON: 06/27/2024 FINDINGS: The lungs are well inflated and clear. No pneumothorax or sizable effusion. Stable cardiomegaly. Med iastinal contours are unremarkable. IMPRESSION: No acute intrathoracic abnormalities. Stable cardiomegaly.
[2025-03-08] MEDS ORDERED: MAGNES/ALUMIN/SIMET 30ML UCUP ONE (16:15)
[2025-03-08] MEDS ORDERED: LIDOCAINE VISCOUS 2% 10ML ORAL SOLN ONE (16:15)
--- NOTE | 2025-03-08 16:29 | RAD REPORT ---
EXAMINATION: CT Abdomen Pelvis W Contrast CLINICAL INDICATION: Female, 45 years old. ABD PAIN TECHNIQUE: CT abdomen and pelvis was performed, after the administration of IV contrast, as [facility]. Axial, sagittal and coronal reconstructions were obtained. One or more of the following dose reduction techniques were used: Automated exposure control, adjustment of the mA and k V according to patient size, and iterative reconstruction. Unless otherwise specified, incidental findings do not require dedicated imaging follow-up. COMPARISON: 04/12/2024 FINDINGS: LOWER CHEST: The visualized lung bases are clear. LIVER: Mild fatty liver is present. No focal lesion or biliary dilataion is seen. BILIARY SYSTEM: No suspicious abnormalities. SPLEEN: Normal size. No focal lesion. PANCREAS: No mass, ductal dilation, or hilary-pancreatic fluid. ADRENALS: Normal; no mass. KIDNEYS: Normal size and contour. No hydronephrosis. URINARY BLADDER: Unremarkable. GASTROINTESTINAL TRACT: No evidence of free air, significant intra-abdominal free fluid, bowel obstru ction or abscess. APPENDIX: Normal appendix. LYMPH NODES: No lymphadenopathy. MUSCULOSKELETAL: No acute or suspicious osseous abnormality. ADDITIONAL FINDINGS: Dominant right adnexal 5.1 cm cystic lesion, not significantly changed. IMPRESSION: No acute or concerning abnormalities seen in the abdomen or pelvis. Stable incidental findings as above.
[2025-03-08 17:13] LABS: Sqamous Epithelial <5 /HPF (None Seen); Urine Crystals Unidentified Few /HPF (None Seen); Urine Culture Reflex Order REFLEXED; Urine Microscopic Reflex YN ORDER UMIC; Urine WBC Clump Rare /HPF (None Seen)
--- NOTE | 2025-03-08 17:20 | ER ---
Nurse's Notes [facility] Name: Red Slater Age: 45 yrs Sex: Female : 1980 Arrival Date: 03/08/2025 Time: 11:53 Bed 23 Private MD: Diagnosis: Abdominal pain, Generalized Presentation: 03/08 11:59 Chief complaint: Upper abdominal pain, N/D, and SOB on exertion x 3 days. Coronavirus hb screen: At this time, the client does not indicate any symptoms associated with coronavirus-19. Ebola Screen: No symptoms or risks identified at this time. Initial Sepsis Screen: Does the patient meet any 2 criteria? No. Patient's initial sepsis screen is negative. Does the patient have a suspected source of infection? No. Patient's initial sepsis screen is negative. Risk Assessment: Do you want to hurt yourself or someone else? Patient reports no desire to harm self or others. Onset of symptoms was March 06, 2025. 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 Abuse screen: Denies threats or abuse. Nutritional screening: No deficits noted. Tuberculosis screening: No symptoms or risk factors identified. Assessment: 13:48 Reassessment: Patient and/or family updated on plan of care and expected duration. Pain ll1 level reassessed. 15:39 General: Appears in no apparent distress. comfortable, Behavior is calm, cooperative, jb4 appropriate for age. Pain: Denies pain. Neuro: Level of Consciousness is awake, alert, obeys commands, Oriented to person, place, time, situation. Cardiovascular: Patient's skin is warm and dry. Respiratory: Airway is patent Respiratory effort is even, unlabored, Respiratory pattern is regular, symmetrical. GI: Abdomen is obese. Derm: Skin is intact, Skin is pink, warm \T\ dry. Musculoskeletal: Circulation, motion, and sensation intact. Range of motion: intact in all extremities. 17:34 Reassessment: Patient appears in no apparent distress at this time. Patient and/or jb4 family updated on plan of care and expected duration. Pain level reassessed. Patient is alert, oriented x 3, equal unlabored respirations, skin warm/dry/pink. Patient states feeling better. Vital Signs: 11:59 BP 184 / 92; Pulse 88; Resp 20; Temp 97.8; Pulse Ox 100% on R/A; Weight 172.37 kg; hb Height 5 ft. 5 in. ; Pain 10/10; 16:06 BP 134 / 70; Pulse 79; Resp 16; Pulse Ox 98% on R/A; jb4 11:59 Body Mass Index 63.23 (172.37 kg, 165.1 cm) hb 11:59 Pain Scale: Adult hb ED Course: 11:55 Patient arrived in ED. mr 11:57 Po Paiz MD is Attending Physician. sp3 12:00 Triage completed. hb 12:03 Arm band placed on. hb 13:48 Patient placed in an exam room, on a stretcher. ll1 14:00 Initial lab(s) drawn, by me, sent to lab. Inserted saline lock: 20 gauge in right iw antecubital area, using aseptic technique. Blood collected. Flushed with 10 mL NS. 14:03 XRAY Chest (1 view) In Process Unspecified. EDMS 14:26 Test, Urine Sent. ll1 15:16 CT Abd/Pelvis - IV Contrast Only In Process Unspecified. EDMS 15:39 Patient has correct armband on for positive identification. Bed in low position. Call jb4 light in reach. Side rails up X 1. Provided Education on: plan of care. 17:34 No provider procedures requiring assistance completed. d/c'd by CT due to infiltration. jb4 Administered Medications: 16:37 Drug: GI Cocktail without - (Maalox PO 30 ml, Lidocaine Mucous Membrane 2 % 15 jb4 ml) PO once Route: PO; 17:36 Follow up: Response: No adverse reaction; Marked relief of symptoms; Pain is decreased jb4 17:33 Drug: Dicyclomine PO 20 mg PO once Route: PO; jb4 17:35 Follow up: Response: Medication administered at discharge. jb4 Medication: 15:39 VIS not applicable for this client. jb4 Outcome: 17:19 Discharge ordered by . sp3 17:34 Discharged to home ambulatory, jb4 17:34 Condition: stable 17:34 Discharge instructions given to patient, Instructed on discharge instructions, follow up and referral plans. medication usage, Demonstrated understanding of instructions, follow-up care, medications, Prescriptions given X 1, 17:37 Patient left the ED. jb4 Signatures: Dispatcher [employer] EDMS ValdezArina, Kennedy Reg mr Marilu Talley, RN RN Radha Granados RN RN Fausto Freeman RN RN jb4 Rafael Richardson RN RN ll1 Po Paiz MD MD sp3 Corrections: (The following items were deleted from the chart) 12:03 12:00 PMHx: SNedden-Gonzalez Disease; hb hb 17:36 15:39 Reassessment: Patient appears in no apparent distress at this time. Patient jb4 and/or family updated on plan of care and expected duration. Pain level reassessed. Patient is alert, oriented x 3, equal unlabored respirations, skin warm/dry/pink. jb4
--- NOTE | 2025-03-08 17:20 | EDPHYS ---
Physician Documentation [facility] Name: Red Slater Age: 45 yrs Sex: Female : 1980 Arrival Date: 03/08/2025 Time: 11:53 Bed 23 Private MD: ED Physician Po Paiz HPI: 03/08 15:54 This 45 yrs old Female presents to ER via Ambulatory with complaints of sp3 Abdominal Pain, Nausea, Dizziness, Shortness Of Breath. 15:54 45-year-old female with history of hypertension, Sneddon Gonzalez disease, , sp3 cholecystectomy now presents with paramedical abdominal pain for the last 2 to 3 days with no other symptoms. She denies fever, headache, neck pain, chest pain, shortness of breath, nausea, vomiting, diarrhea, syncope, near syncope, urinary symptoms, or any other signs or symptoms on ROS at this time.. Historical: - Allergies: 12:00 No Known Drug Allergies; hb - Home Meds: 12:00 Hydrochlorothiazide Oral [Active]; pantoprazole oral [Active]; hb - PMHx: 12:00 Hypertensive disorder; Snedden-Gonzalez Disease; hb - PSHx: 12:00 Cholecystectomy; Cholecystectomy; hb ROS: 15:55 Constitutional: Negative for fever, chills, and weight loss, Eyes: Negative for injury, sp3 pain, redness, and discharge, ENT: Negative for injury, pain, and discharge, Neck: Negative for injury, pain, and swelling, Cardiovascular: Negative for chest pain, palpitations, and edema, Respiratory: Negative for shortness of breath, cough, wheezing, and pleuritic chest pain, Back: Negative for injury and pain, MS/Extremity: Negative for injury and deformity, Skin: Negative for injury, rash, and discoloration, Neuro: Negative for headache, weakness, numbness, tingling, and seizure, Psych: Negative for depression, anxiety, suicide ideation, homicidal ideation, and hallucinations, Allergy/Immunology: Negative for hives, rash, and allergies, Endocrine: Negative for neck swelling, polydipsia, polyuria, polyphagia, and marked weight changes, Hematologic/Lymphatic: Negative for swollen nodes, abnormal bleeding, and unusual bruising, 15:55 All other systems are negative, Exam: 15:56 Constitutional: This is a well developed, well nourished patient who is awake, alert, sp3 and in no acute distress. Head/Face: Normocephalic, atraumatic. ENT: Nares patent. No nasal discharge, no septal abnormalities noted. External auditory canals are clear. Oropharynx with no redness, swelling, or masses, exudates, or evidence of obstruction, uvula midline. Mucous membranes moist. Neck: Trachea midline, no thyromegaly or masses palpated, and no cervical lymphadenopathy. Supple, full range of motion without nuchal rigidity, or vertebral point tenderness. No Meningismus. Chest/axilla: Normal chest wall appearance and motion. Nontender with no deformity. No lesions are appreciated. Cardiovascular: Regular rate and rhythm with a normal S1 and S2. No gallops, murmurs, or rubs. Normal PMI, no JVD. No pulse deficits. Respiratory: Lungs have equal breath sounds bilaterally, clear to auscultation and percussion. No rales, rhonchi or wheezes noted. No increased work of breathing, no retractions or nasal flaring. Back: No spinal tenderness. No costovertebral tenderness. Full range of motion. Skin: Warm, dry with normal turgor. Normal color with no rashes, no lesions, and no evidence of cellulitis. MS/ Extremity: Pulses equal, no cyanosis. Neurovascular intact. Full, normal range of motion. Neuro: Awake and alert, GCS 15, oriented to person, place, time, and situation. Cranial nerves II-XII grossly intact. Motor strength 5/5 in all extremities. Sensory grossly intact. Cerebellar exam normal. Normal gait. Psych: Awake, alert, with orientation to person, place and time. Behavior, mood, and affect are within normal limits. 15:56 Abdomen/GI: Patient without peritoneal signs, rebound or guarding. Exam is limited secondary to body habitus/obesity., 16:43 ECG was reviewed by the Attending Physician. EKG demonstrates normal sinus rhythm at 82 sp3 bpm with normal intervals, normal QRS, normal axis, normal ST/T-segment's without evidence of acute ischemia. Vital Signs: 11:59 BP 184 / 92; Pulse 88; Resp 20; Temp 97.8; Pulse Ox 100% on R/A; Weight 172.37 kg; hb Height 5 ft. 5 in. ; Pain 10/10; 16:06 BP 134 / 70; Pulse 79; Resp 16; Pulse Ox 98% on R/A; jb4 11:59 Body Mass Index 63.23 (172.37 kg, 165.1 cm) hb 11:59 Pain Scale: Adult hb MDM: 12:06 Medical Screening Exam initiated sp3 15:57 Data reviewed: vital signs, nurses notes, old medical records, lab test result(s), EKG, sp3 radiologic studies. ED course: 45-year-old female with PMH above now with periumbilical abdominal pain. Differential diagnosis is broad and includes ventral hernia, other GI pathology including colitis, SBO, ileus, UTI/pyelonephritis spectrum, kidney stone, pancreatitis, gastritis, peptic ulcer, biliary pathology, musculoskeletal, among others. I am not highly suspicious of vascular pathology including AAA, sepsis, shock or any other critical process. Patient has WBC count of 15,000. CT scan of the abdomen pelvis is pending. Patient requesting GI cocktail for pain control.. 17:17 ED course: Patient with negative CT scan. UA is dirty with her menses. I do not believe sp3 patient has a UTI. Remainder blood work negative except for mild leukocytosis of 15,000. Will treat with Bentyl and have her follow-up with her PCP and trend her symptoms. No acute emergency or indications for admission.. 03/08 12:07 Order name: Basic Metabolic Panel; Complete Time: 15:07 3 03/08 12:07 Order name: CBC with Diff; Complete Time: 14:32 3 03/08 12:07 Order name: LFT's; Complete Time: 15: 3 03/08 12:07 Order name: Magnesium; Complete Time: 15:07 3 03/08 12:07 Order name: NT PRO-BNP; Complete Time: 15:07 3 03/08 12:07 Order name: PT-INR; Complete Time: 14:32 3 03/08 12:07 Order name: Troponin HS; Complete Time: 15:07 3 03/08 12:07 Order name: COVID-19 Ag + Flu A+B Ag; Complete Time: 14:32 3 03/08 14:08 Order name: Test, Urine; Complete Time: 15:14 3 03/08 17:03 Order name: UA Rfx Booker Cult if indicated; Complete Time: 17:17 sp3 03/08 17:17 Order name: Urine Culture EDNC 03/08 12:07 Order name: XRAY Chest (1 view); Complete Time: 16:42 sp3 03/08 12:07 Order name: CT Abd/Pelvis - IV Contrast Only; Complete Time: 16:42 sp3 03/08 12:07 Order name: EKG - Nurse/Tech; Complete Time: 14:19 sp3 03/08 12:07 Order name: IV Saline Lock; Complete Time: 14:19 sp3 03/08 12:07 Order name: Labs collected and sent; Complete Time: 14:19 sp3 03/08 14:14 Order name: Labs - recollect needed: recollect green top; Complete Time: 14:32 bd Administered Medications: 16:37 Drug: GI Cocktail without - (Maalox PO 30 ml, Lidocaine Mucous Membrane 2 % 15 jb4 ml) PO once Route: PO; 17:36 Follow up: Response: No adverse reaction; Marked relief of symptoms; Pain is decreased jb4 17:33 Drug: Dicyclomine PO 20 mg PO once Route: PO; jb4 17:35 Follow up: Response: Medication administered at discharge. jb4 Disposition Summary: 03/08/25 17:19 Discharge Ordered Notes: Location: Home sp3 Condition: Stable sp3 Diagnosis - Abdominal pain, Generalized sp3 Followup: sp3 - With: Private Physician - When: Upon discharge from the Emergency Department - Reason: Continuance of care Discharge Instructions: - Discharge Summary Sheet sp3 - Abdominal Pain, Adult sp3 Forms: - Medication Reconciliation Form sp3 - Antibiotic Education sp3 - Prescription Opioid Use sp3 - Patient Portal Instructions sp3 - Leadership Thank You Letter sp3 Prescriptions: - dicyclomine 20 mg Oral tablet - take 1 tablet ORAL route 3 times per day As needed pain; 20 tablet; Refills: 0, sp3 Product Selection Permitted Signatures: Dispatcher [employer] [facility] Arlene Fletcher Heather RN RN Fausto Rodriguez RN RN jb4 Po Paiz MD MD sp3 Corrections: (The following items were deleted from the chart) 12:03 12:00 PMHx: SNedden-Gonzalez Disease; hb hb 12:07 12:07 BASIC METABOLIC PANEL+C.LAB.BRZ ordered. EDMS EDMS 12:07 12:07 CBC+H.LAB.BRZ ordered. EDMS EDMS 12:07 12:07 HEPATIC FUNCTION+C.LAB.BRZ ordered. EDMS EDMS 12:07 12:07 MAGNESIUM+C.LAB.BRZ ordered. EDMS EDMS 12:07 12:07 PROBNP+C.LAB.BRZ ordered. EDMS EDMS 12:07 12:07 PROTIME (+INR)+COAG.LAB.BRZ ordered. EDMS EDMS 12: 12:07 Troponin High Sensitivity+C.LAB.BRZ ordered. EDMS EDMS 12:07 12:07 COVID-19 Ag + Flu A+B Ag+I.LAB.BRZ ordered. EDMS EDMS 12:07 12:07 Chest Single View+RAD.RAD.BRZ ordered. EDMS EDMS 17:03 17:03 UA Rfx Booker Cult if indicated+U.LAB.BRZ ordered. EDMS EDMS
[2025-03-08] MEDS ORDERED: DICYCLOMINE HCL 10 MG CAP ONE (17:27)
[2025-03-08 17:42] VITALS: TEMP 97.8
[2025-03-08 17:44] VITALS: BP 134/70; O2SAT 98
== END 2025-03-08 17:37 | disposition home or self-care (01) ==
LOC: ER 11:53
DX: R10.84 Generalized abdominal pain (principal); Z11.52 Encounter for screening for COVID-19
CPT/HCPCS: 93005; 87088; 85025; 81001; 87086; 80048; 36415; 83735; 81025; 85610; 80076; 84484; 83880; 74177; 71045; 99284; 87428; Q9967